=== PATIENT | female | born 1940 | race Caucasian/White ===

== ENCOUNTER 2017-10-13 12:53 | Emergency (ER) | payer MEDICARE, OTHER, SELFPAY ==
[2017-10-13 12:54] VITALS: BP 154/73; PULSE 84; RESP 18; TEMP 36.6; O2SAT 98; BMI 31.4
--- NOTE | 2017-10-13 13:01 | PCA ---
PRINTER OLD EKG
--- NOTE | 2017-10-13 14:03 | RAD_ITS ---
STUDY: X-RAY CHEST REASON FOR EXAM: Female, 77 years old. Palpitations and shakiness TECHNIQUE: Single AP portable view of the chest. COMPARISON: 05/29/2017 FINDINGS: The lungs are clear and expanded. There is no demonstrated pleural abnormality. Normal size heart. Normal mediastinum and anton. Normal visualized pulmonary arteries. Normal visualized aortic arch and descending thoracic aorta. Normal visualized thoracic spine. Normal visualized ribs, clavicles, and shoulders. There is no demonstrated abnormality of the visualized soft tissue structures of the upper abdomen. RAD/Chest 1 View (Portable) IMPRESSION: Normal x-ray examination of the chest. Electronically Signed: Juanito Owen DO at 14:39 EDT Tel , Service support ,
--- NOTE | 2017-10-13 14:04 | EKG12_ITS ---
Test Reason : PALPS Blood Pressure : / mmHG Vent. Rate : 086 BPM Atrial Rate : 086 BPM P-R Int : 168 ms QRS Dur : 076 ms QT Int : 386 ms P-R-T Axes : 000 019 066 degrees QTc Int : 461 ms Normal sinus rhythm Normal ECG Confirmed by ROBERT BILLINGS, EHSAN ([id number]), editor book MARY NIELSEN ([id number]) on 10/16/2017 10:30:28 AM Referred By: BRENTON Confirmed By:EHSAN JONES MD
[2017-10-13 14:11] VITALS: BP 154/63; PULSE 83; RESP 16; O2SAT 96
[2017-10-13 14:30] LABS: Bacteria 0 SEEN /hpf (None Seen); Mucous, Urine 0 SEEN /hpf (<or=2+)
[2017-10-13] MEDS: 0.9% Normal Saline 1,000 ML 1000 ML IV (14:30)
[2017-10-13 14:42] LABS: Absolute Neutrophil Count 5.8 X10^3/uL (2.0-7.7); Basophil# 0.03 X10^3/uL; Basophil% 0.4 % (0-1); Eosinophil# 0.07 X10^3/uL; Eosinophils% 0.8 % (0-5); Hematocrit 42.5 % (37-47); Hemoglobin 14.7 g/dl (12.0-15.0); Lymphocyte % 23.5 % (19-41); Mean Corp Hgb Conc 34.6 g/gl (32-36); Mean Corpuscular Hgb 33.8 pg (27.0-32.0); Mean Corpuscular Volume 97.7 fL (81-99); Monocyte# 0.61 X10^3/uL; Monocyte% 7.2 % (0-10); Neutrophil # 5.75 X10^3/uL (2.7-7.7); Neutrophil % 67.4 % (47-70); Platelet Count 225 K/mm3 (150-450); RBC Distribution Width CV 13.5 % (11.6-14.6); RBC Distribution Width SD 44.7 fl (35.1-43.9); Red Blood Count 4.35 M/mm3 (4.2-5.4); White Blood Count 8.5 K/mm3 (4.4-11.0)
[2017-10-13 14:42] LABS: Color, Urine Yellow (Yellow); Glucose, Dipstick Normal (Normal); Ketone-Dipstick Negative (Negative); Leukocyte Esterase-Dipstick 25 /ul (Negative); Nitrite-Dipstick Negative (Negative); Occult Blood-Urine 50 /ul (Negative); Protein-Dipstick Negative (Negative); Urine Bilirubin Dipstick Negative (Negative); Urine Clarity Sl. Cloudy (Clear); Urine Urobilinogen Normal (Normal); Urine pH 6.5 (5.0 - 8.0)
[2017-10-13 14:43] LABS: POSITIVE COUNT NO; POSITIVE DIFFERENTIAL NO; POSITIVE MORPHOLOGY NO
[2017-10-13 14:49] LABS: Red Blood Cells-Urine 0-5 SEEN /hpf (0-5); Squamous Epithelial Cells - UA 0-5 SEEN /hpf (5-10); White Blood Cells 0-5 SEEN /hpf (0-5)
[2017-10-13 16:35] LABS: Anion Gap 5 (5-15); BUN 16 mg/dL (7-18); BUN/Creat Ratio 17.3 RATIO (10-20); Calcium,Total 8.7 mg/dL (8.5-10.1); Chloride 112 mmol/L (98-107); Creatinine, Serum 0.92 mg/dL (0.55-1.02); EST Glomerular Filtration Rate 62 mL/min (>60); Est Glom Filt Rate - Afr Amer 75 mL/min (>60); Estimated Creatinine Clearance 42.82 ml/min; Glucose 101 mg/dL (74-106); Sodium Level 143 mmol/L (136-145)
[2017-10-13 16:52] VITALS: BP 152/72; PULSE 85; RESP 16; O2SAT 96
--- NOTE | 2017-10-13 16:59 | ED.VISSUMM ---
- ER Visit Summary Date of Service: 10/13/17 Chief Complaint: Palpitations History of Present Illness: The patient is a 77 F who states that for the past 2 days she has been working outside in the heat. States she feels very dehydrated but states she thought she was doing a good job hydrating herself. She can sleep very well last night laid on the couch around 4:00 in the morning she felt some nausea and lightheaded but was eventually able to get to sleep. She got up and breakfast felt even more fatigued and more nauseous and began to feel some palpitations or irregular heartbeat and came in for evaluation. She takes a daily aspirin but has no significant medical problems. Physical Examination: Afebrile vital signs are stable Gen: Well-nourished well-developed Head: Normocephalic atraumatic Eyes: Perrl EOMI ENT: TMs clear no rhinorrhea moist mucous membranes Neck: Supple no lymphadenopathy no JVD nontender CVS: Regular rate rhythm no murmurs normal S1-S2 Respiratory: No distress clear to auscultation bilaterally chest nontender Abdomen: Soft nontender nondistended normal bowel sounds no masses Back: Nontender Extremity: Nontender no edema Skin: Normal color no rash Neuro: alert orientated ?3 CN II-XII intact normal strength sensation reflexes gait cerebellar Psych: Normal affect normal mood Test Results: EKG sinus at a rate of 86 basic labs were negative urinalysis negative TSH normal. Chest x-ray negative Emergency Department Course and Treatment: She received IV fluids she has had no events on the monitor. She feels improved however she will be discharged home to follow-up with her doctors return if worsening. Impression: 1. Palpitations This note was generated with [employer] dictation software. It may contain incorrect words, spelling, and punctuation that were not noted in review of the chart prior to signing ED Disposition - Plan for ED Patient: Disposition: Home or Assisted Living Chief Complaint: Palpitations Instructions: ED Palpitations Referrals: Bennett Weir MD [Primary Care Provider] - 1 Week if not improving
[2017-10-13 17:25] VITALS: BP 140/78; PULSE 79; RESP 16; O2SAT 96
== END 2017-10-13 17:26 | disposition home or self-care (01) ==
PROVIDERS: Emergency Provider Emergency Medicine; Family Provider Internal Medicine; PCP Internal Medicine
DX: R00.2 Palpitations (principal); R11.0 Nausea; R42 Dizziness and giddiness; R53.83 Other fatigue; Z90.89 Acquired absence of other organs; Z90.49 Acquired absence of other specified parts of digestive tract; Z79.82 Long term (current) use of aspirin
CPT/HCPCS: 71045; 80048; 81001; 84443; 84484; 85025; 93005; 96360; 96361; 99285; J7030; A4216

== ENCOUNTER 2019-05-09 09:14 | Emergency (ER) | payer MEDICARE, OTHER, SELFPAY ==
[2019-05-09 09:15] VITALS: BP 155/72; PULSE 95; RESP 17; TEMP 36.9; O2SAT 97; BMI 28.6
--- NOTE | 2019-05-09 09:38 | EKG12_ITS ---
Test Reason : PALPITATIONS Blood Pressure : / mmHG Vent. Rate : 079 BPM Atrial Rate : 079 BPM P-R Int : 170 ms QRS Dur : 082 ms QT Int : 400 ms P-R-T Axes : 008 024 066 degrees QTc Int : 458 ms Normal sinus rhythm Normal ECG Confirmed by ROBERT BILLINGS, EHSAN ([id number]), television news video editor MILLI CASEY ([id number]) on 05/11/2019 11:56:31 AM Referred By: SHANNA Confirmed By:EHSAN JONES MD
--- NOTE | 2019-05-09 09:38 | RAD_ITS ---
STUDY: X-RAY CHEST REASON FOR EXAM: Female, 78 years old. Palpitations. Hypertension. TECHNIQUE: PA and lateral views of the chest. COMPARISON: Comparison is made with prior study of October 13, 2017. FINDINGS: EKG electrode are seen. The lungs are clear and expanded. Scattered calcified granulomas. There is no demonstrated pleural abnormality. Normal size heart. Normal mediastinum and anton. Normal visualized pulmonary arteries. There is atherosclerotic tortuosity of the aortic arch and descending thoracic aorta. There is demineralization of the osseous structures. Normal visualized ribs, clavicles, and shoulders. There is no demonstrated abnormality of the visualized soft tissue structures of the upper abdomen. RAD/Chest PA and Lateral IMPRESSION: No acute abnormality is seen. Scattered calcified granulomas. Electronically Signed: Rubio Carrera, at 10:42 EST , Service support ,
--- NOTE | 2019-05-09 09:39 | ED.VIS.GEN ---
History of Present Illness Chief Complaint: Palpitations Informant: Patient Onset: Days Context: Gradual Onset Timing: Intermittent Narrative: Patient is an 78-year-old female with history of hyperlipidemia and possible hypertension presenting with palpitations. Patient states she is been having worsening palpitations over the past few days. She states last night when she was lying down she saw her heart beating of her chest as well. She denies any associated chest pain. She notes she has had palpitations for years but they have never been this bad. She states she is never had it formally evaluated. She is never seen a tactical response group officer. She denies any associated shortness of breath or leg swelling. She has had mild cold and is been taking Tylenol for her symptoms. She has had a nonproductive cough. She does have some associated nausea but no vomiting. She denies any bowel changes or urinary symptoms. She does have increased stress as her was recently admitted for COPD exacerbation and was just discharged home. Patient denies any other complaints at this time. Past Medical History - Allergies and Home Meds Allergies/Adverse Reactions: Allergies iodine Allergy (Verified 05/09/19 09:15) Shortness of breath Smbtsmw-Aut-Wen Reductase Inhibitor Allergy (Verified 05/09/19 09:15) Rash ANTIBIOTICS Allergy (Uncoded 05/09/19 09:15) Shortness of breath Primary Care Physician: Bennett Weir MD [Primary Care Provider] - Past Medical History: - - Hyperlipidemia Surgical History: noncontributory Lives: Spouse/ Significant Other Smoking Status: Never smoker Alcohol: None Drugs: None Review of Systems General: Denies: Chills, Fever, Sweats Eyes: Denies: Visual changes - bilaterally, Diplopia ENT: Denies: Rhinorrhea, Sore throat Cardiovascular: Reports: Palpitations. Denies: Chest pain, Heart racing Respiratory: Reports: Cough. Denies: Dyspnea, Dyspnea on exertion Gastrointestinal: Reports: Nausea. Denies: Abdominal pain, Vomiting, Diarrhea, Melena, Hematochezia Genitourinary: Denies: Dysuria, Hematuria, Frequency Musculoskeletal: Denies: Back pain, Extremity Pain Skin: Denies: Rash, Wounds Neurological: Denies: Headache, Weakness, Numbness Physical Exam Vital Signs/Narrative: Vital Signs Temp Pulse Resp BP Pulse Ox 05/09/19 09:15 98.4 F 95 17 155/72 H 97 Inital Vital Signs reviewed: Yes General: Well nourished, Well developed, No Acute Distress Head: Normocephalic, Atraumatic Eyes: Perrl, EOMI ENT: Moist mucous membranes, No rhinorrhea Neck: Supple, Nontender Cardiovascular: Regular rate, Regular rhythm, No murmurs Respiratory: No distress, CTA bilaterally, Chest nontender Abdomen: Soft, Nontender, Nondistended, Normal bowel sounds Back: Nontender, Normal Inspection Extremities: Nontender, No edema Skin: Normal color, No rash Neurological: Alert, Oriented x3, Cranial nerves II-XII grossly intact, Normal Strength, Normal Sensation Psychological: Normal affect, Normal Mood Diagnostic/Tx/Re-eval Chest X-Ray - ED: 2 View, Read by ED Physician, Read by Radiologist, No Acute Disease Clinical Impression(s) from Imaging Studies Chest X-Ray 05/09/19 09:38 IMPRESSION: No acute abnormality is seen. Scattered calcified granulomas. Electronically Signed: Rubio Carrera, at 10:42 EST , Service support , Abdomen/Pelvis CT 05/09/19 11:06 IMPRESSION: Stable examination. No acute abnormality is seen. Electronically Signed: Rubio Carrera, at 12:30 EST , Service support , Laboratory Data 05/09/19 05/09/19 05/09/19 09:52 09:53 09:53 WBC 11.3 H RBC 4.63 Hgb 14.5 Hct 44.3 MCV 95.7 MCH 31.3 MCHC 32.7 RDW Std Deviation 46.9 H RDW Coeff of Alex 13.2 Plt Count 218 MPV 9.4 Immature Gran % (Auto) 0.700 Neut % (Auto) 75.1 H Lymph % (Auto) 17.2 L [place] % (Auto) 6.2 Eos % (Auto) 0.4 Baso % (Auto) 0.4 Absolute Neuts (auto) 8.5 H Absolute Lymphs (auto) 1.94 Nucleated RBC % 0 Sodium 140 Potassium 3.9 Chloride 108 H Carbon Dioxide 29.0 Anion Gap 3 L BUN 17 Creatinine 0.80 Estim Creat Clear Calc 46.40 Est GFR (MDRD) Af Amer 89 Est GFR (MDRD) Non-Af 74 BUN/Creatinine Ratio 21.4 H Glucose 97 Calcium 8.9 Troponin I < 0.015 TSH 0.68 Urine Color Yellow Urine Clarity Clear Urine pH 6.0 Ur Specific [place] 1.010 Urine Protein Negative Urine Glucose (UA) Normal Urine Ketones Negative Urine Occult Blood 150 H Urine Nitrite Negative Urine Bilirubin Negative Urine Urobilinogen Normal Ur Leukocyte Esterase Negative Urine RBC 0-5 SEEN Urine WBC 0 SEEN Ur Squamous Epith Cells 0 SEEN Urine Bacteria 0 SEEN Urine Mucus 0 SEEN - Rhythm Strip Rhythm Strip: Sinus Rhythm Rate: 94 Ectopy: PVC(s), - - Frequent - EKG Initial EKG Interpretation: Sinus Rhythm, - - Sinus rhythm at a rate of 79 Normal intervals Normal axis Normal ST segments No change compared to prior EKG on 10/13/2017 - Medical Decision Making Patient is evaluated for palpitations and some intermittently elevated blood pressures. Her blood pressure is normal in the ER and only mildly hypertensive. She is well-appearing. She does comment that she had some sharp abdominal pain that last for couple seconds and then resolves which she had brushed off. Patient does not have any abnormalities on her EKG however she does have frequent PVCs on her telemetry. CBC, BMP, troponin and TSH are all grossly normal. Urine did show hematuria. Patient been having some sharp abdominal pains I did obtain a CT to rule out kidney stone or some other acute pathology. This was without contrast but negative. Patient is counseled on her hematuria and need for follow-up with her primary care doctor. I do think she is safe for outpatient follow-up for her palpitations/PVCs. I did discuss with her primary care doctor, Dr. Weir. He is agreeable with this plan. Patient is counseled on signs and symptoms requiring return to the emergency room. Patient verbalizes agreement and understand this plan. Patient discharged home in stable and improved condition. ED Disposition - Plan for ED Patient: Disposition: Home or Assisted Living Diagnosis: Palpitations, PVC (premature ventricular contraction), Microscopic hematuria Instructions: Premature Ventricular Contractions, Palpitations Referrals: Bennett Weir MD [Primary Care Provider] - Additional Instructions: Please follow-up with your primary care doctor for further evaluation of your PVCs and your hematuria. I do think you are safe to go home. Return to the emergency room should you develop difficulty breathing, chest pain or worsening symptoms.
[2019-05-09 09:55] LABS: Bacteria 0 SEEN /hpf (None Seen); Mucous, Urine 0 SEEN /hpf (<or=2+); Squamous Epithelial Cells - UA 0 SEEN /hpf (5-10); White Blood Cells 0 SEEN /hpf (0-5)
[2019-05-09 09:56] LABS: Color, Urine Yellow (Yellow); Glucose, Dipstick Normal (Normal); Ketone-Dipstick Negative (Negative); Leukocyte Esterase-Dipstick Negative /ul (Negative); Nitrite-Dipstick Negative (Negative); Occult Blood-Urine 150 /ul (Negative); Protein-Dipstick Negative (Negative); Urine Bilirubin Dipstick Negative (Negative); Urine Clarity Clear (Clear); Urine Urobilinogen Normal (Normal)
[2019-05-09 10:02] LABS: Red Blood Cells-Urine 0-5 SEEN /hpf (0-5)
[2019-05-09 10:05] LABS: Absolute Lymphocyte Count 1.94 X10^3/uL (0.83-4.51); Absolute Neutrophil Count 8.5 X10^3/uL (2.0-7.7); Basophil# 0.04 X10^3/uL; Basophil% 0.4 % (0-1); Eosinophil# 0.04 X10^3/uL; Eosinophils% 0.4 % (0-5); Hematocrit 44.3 % (37-47); Hemoglobin 14.5 g/dL (12.0-15.0); Lymphocyte # 1.94 X10^3/ul (4.0); Lymphocyte % 17.2 % (19-41); Mean Corp Hgb Conc 32.7 g/dL (32-36); Mean Corpuscular Hgb 31.3 pg (27.0-32.0); Mean Corpuscular Volume 95.7 fL (81-99); Mean Platelet Vol. 9.4 fl (6.2-12.0); Monocyte% 6.2 % (0-10); NRBC Flagged by Analyzer 0 % (0-5); Neutrophil # 8.49 X10^3/uL (2.7-7.7); Neutrophil % 75.1 % (47-70); Platelet Count 218 K/mm3 (150-450); RBC Distribution Width CV 13.2 % (11.6-14.6); RBC Distribution Width SD 46.9 fl (35.1-43.9); Red Blood Count 4.63 M/mm3 (4.2-5.4); White Blood Count 11.3 K/mm3 (4.4-11.0)
[2019-05-09 10:14] VITALS: BP 145/66; PULSE 80; RESP 18; O2SAT 98
[2019-05-09] MEDS: 0.9% Normal Saline 1,000 ML 1000 ML IV (10:16)
[2019-05-09 10:47] LABS: Anion Gap 3 (5-15); BUN 17 mg/dL (7-18); BUN/Creat Ratio 21.4 RATIO (10-20); Calcium,Total 8.9 mg/dL (8.5-10.1); Chloride 108 mmol/L (98-107); EST Glomerular Filtration Rate 74 mL/min (>60); Est Glom Filt Rate - Afr Amer 89 mL/min (>60); Glucose 97 mg/dL (74-106); Potassium 3.9 mmol/L (3.5-5.1); Sodium Level 140 mmol/L (136-145); Thyroid Stim Hormone (TSH) 0.68 uIU/mL (0.358-3.74)
--- NOTE | 2019-05-09 11:06 | CT_ITS ---
STUDY: CT ABDOMEN AND PELVIS WITHOUT CONTRAST REASON FOR EXAM: Female, 78 years old. Abdominal pain. Hematuria. RADIATION DOSAGE (If Supplied By Facility): CTDIvol = ( 12.66 ) mGy, DLP = ( 610.28 ) mGycm TECHNIQUE: Transaxial images were obtained from the dome of the diaphragm to the symphysis pubis without oral contrast, and without intravenous contrast. Sagittal and coronal images were reconstructed. Individualized dose optimization techniques were used for this CT. COMPARISON: Comparison is made with prior examination dated February 01, 2016. FINDINGS: Stable thickening of the right major fissure. Calcified granuloma in the right lower lobe. Coronary artery calcification. Stable small liver cysts. The largest measures 2 cm. The patient is status post cholecystectomy. There are multiple benign calcified granulomata of the spleen. Normal pancreas. Normal bilateral adrenal glands. Normal right kidney. Normal left kidney. Bilateral parapelvic cysts. Normal visualized stomach. Normal small intestine. Prior right hemicolectomy. There are multiple colonic diverticula consistent with diverticulosis. There are surgical clips in the region of the appendix consistent with a prior appendectomy. There is diffuse atherosclerotic calcification of the abdominal aorta and its major visceral branches, without a demonstrated aneurysm. Normal inferior vena cava. There is borderline retroperitoneal lymphadenopathy with enlarged nodes no greater than 10mm in the short axis diameter. Normal urinary bladder. Calcified fibroid uterus. Normal abdominal wall. There are diffuse degenerative changes of the visualized lumbar spine. 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 CT/Abdomen/Pelvis without Cont IMPRESSION: Stable examination. No acute abnormality is seen. Electronically Signed: Rubio Carrera, at 12:30 EST , Service support ,
[2019-05-09 12:00] VITALS: BP 162/59; PULSE 82; RESP 16; O2SAT 99
[2019-05-09 13:54] VITALS: BP 135/54; PULSE 96; RESP 15; O2SAT 98
== END 2019-05-09 14:08 | disposition home or self-care (01) ==
PROVIDERS: Emergency Provider Emergency Medicine; Family Provider Internal Medicine; PCP Internal Medicine
DX: I49.3 Ventricular premature depolarization (principal); R00.2 Palpitations; R31.29 Other microscopic hematuria; R05 Cough; R11.0 Nausea; R10.9 Unspecified abdominal pain; E78.5 Hyperlipidemia, unspecified; Z79.82 Long term (current) use of aspirin
CPT/HCPCS: 71046; 74176; 80048; 81001; 84443; 84484; 85025; 93005; 96360; 96361; 99283; J7030; A4216

== ENCOUNTER 2020-07-17 21:37 | Observation (INO) | payer MEDICARE, OTHER, SELFPAY ==
[2020-07-17 21:38] VITALS: BP 184/69
[2020-07-17 21:39] VITALS: PULSE 101; RESP 18; TEMP 36.7; O2SAT 98; BMI 28.8
--- NOTE | 2020-07-17 22:12 | EKG12_ITS ---
Test Reason : DYSRHYTHMIA Blood Pressure : / mmHG Vent. Rate : 093 BPM Atrial Rate : 093 BPM P-R Int : 188 ms QRS Dur : 084 ms QT Int : 374 ms P-R-T Axes : 052 029 078 degrees QTc Int : 465 ms Normal sinus rhythm Nonspecific ST abnormality Abnormal ECG Confirmed by [place] BILLINGS, JENI ([id number]), news copy editor MILLI CASEY ([id number]) on 07/18/2020 12:53:47 PM Referred By: MARCIA Confirmed By:JENI OSBORNE MD
--- NOTE | 2020-07-17 22:14 | ED.DCSUM_ITS ---
History of Present Illness Chief Complaint: General Illness Informant: Patient Onset: Days Context: Gradual Onset Timing: Intermittent Current Severity: Moderate Maximum Severity: Moderate Narrative: Patient is an 80-year-old female with medical history significant for hypertension, and prior TIA, who presents to the emergency department with elevated blood sugar and left lower extremity weakness. Patient has had multiple complaints. She states that for the past 3 days, she has had weakness in her left lower extremity. She states is been below the knee. She states that when she steps on it, and will feel heavy. She denies it being clumsy, but states that it just felt abnormal. She states today, the symptoms seem to resolve. Shortly thereafter, she states that she got a strange sensation in her head. She felt like her ears were ringing. She took her blood pressure and it was over 200 systolic. She denies visual change, difficulty speaking, difficul ty swallowing, or other symptoms. Patient does have a history of TIA, but no history of definitive stroke. Prior similar symptoms: No Recent Illness/Hospitalization: No Past Medical History - Allergies and Home Meds Allergies/Adverse Reactions: Allergies iodine Allergy (Verified 07/17/20 21:44) Shortness of breath Hwscppr-Cde-Ezs Reductase Inhibitor Allergy (Verified 07/17/20 21:44) Rash ANTIBIOTICS Allergy (Uncoded 07/17/20 21:44) Shortness of breath Primary Care Physician: Bennett Weir MD [Primary Care Provider] - Prior records reviewed: Yes Past Medical History: - - Hypertension, hyperlipidemia Surgical History: noncontributory Smoking Status: Never smoker Review of Systems General: Denies: Chills, Fever, Sweats Eyes: Denies: Visual changes - bilaterally, Diplopia ENT: Denies: Rhinorrhea, Sore throat Cardiovascular: Denies: Chest pain, Palpitations Respiratory: Denies: Dyspnea, Cough, Dyspnea on exertion Gastrointestinal: Denies: Abdominal pain, Nausea, Vomiting, Diarrhea, Melena, Hematochezia Genitourinary: Denies: Dysuria, Hematuria, Frequency Musculoskeletal: Denies: Back pain, Extremity Pain Skin: Denies: Rash, Wounds Neurological: Reports: Headache, Weakness. Denies: Numbness Physical Exam Vital Signs/Narrative: Vital Signs Temp Pulse Resp BP Pulse Ox 07/17/20 21:39 98.1 F 101 H 18 98 07/17/20 21:38 184/69 H Inital Vital Signs reviewed: Yes General: Well nourished, Well developed, No Acute Distress Head: Normocephalic, Atraumatic Eyes: Perrl, EOMI ENT: Moist mucous membranes, No rhinorrhea Neck: Supple, Nontender Cardiovascular: Regular rate, Regular rhythm, No murmurs Respiratory: No distress, CTA bilaterally, Chest nontender Abdomen: Soft, Nontender, Nondistended, Normal bowel sounds Back: Nontender, Normal Inspection Extremities: Nontender, No edema Skin: Normal color, No rash Neurological: Alert, Oriented x3, Cranial nerves II-XII grossly intact, Normal Strength, Normal Sensation Psychological: Normal affect, Normal Mood Diagnostic/Tx/Re-eval Abnormal Lab Results 07/17/20 07/17/20 07/17/20 21:30 21:30 21:30 WBC 11.1 H RBC 4.80 Hgb 15.5 H Hct 47.0 MCV 97.9 MCH 32.3 H MCHC 33.0 RDW Std Deviation 45.5 H RDW Coeff of Alex 13.1 Plt Count 260 MPV 9.5 Immature Gran % (Auto) 0.600 Neut % (Auto) 40.8 L Lymph % (Auto) 48.9 H [place] % (Auto) 6.9 Eos % (Auto) 2.3 Baso % (Auto) 0.5 Absolute Neuts (auto) 4.5 Absolute Lymphs (auto) 5.43 H Nucleated RBC % 0 PT 12.5 INR 1.0 APTT 29.5 Sodium 140 Potassium 3.7 Chloride 106 Carbon Dioxide 31.0 Anion Gap 3 L BUN 19 H Creatinine 0.88 Estim Creat Clear Calc 42.56 Est GFR (MDRD) Af Amer 80 Est GFR (MDRD) Non-Af 66 BUN/Creatinine Ratio 21.7 H Glucose 102 Calcium 9.7 Troponin I < 0.015 Urine Color Urine Clarity Urine pH Ur Specific [place] Urine Protein Urine Glucose (UA) Urine Ketones Urine Occult Blood Urine Nitrite Urine Bilirubin Urine Urobilinogen Ur Leukocyte Esterase Urine RBC Urine WBC Ur Squamous Epith Cells Urine Bacteria Urine Mucus 07/17/20 22:35 WBC RBC Hgb Hct MCV MCH MCHC RDW Std Deviation RDW Coeff of Alex Plt Count MPV Immature Gran % (Auto) Neut % (Auto) Lymph % (Auto) [place] % (Auto) Eos % (Auto) Baso % (Auto) Absolute Neuts (auto) Absolute Lymphs (auto) Nucleated RBC % PT INR APTT Sodium Potassium Chloride Carbon Dioxide Anion Gap BUN Creatinine Estim Creat Clear Calc Est GFR (MDRD) Af Amer Est GFR (MDRD) Non-Af BUN/Creatinine Ratio Glucose Calcium Troponin I Urine Color Straw Urine Clarity Clear Urine pH 7.0 Ur Specific [place] 1.005 Urine Protein Negative Urine Glucose (UA) Normal Urine Ketones Negative Urine Occult Blood 50 H Urine Nitrite Negative Urine Bilirubin Negative Urine Urobilinogen Normal Ur Leukocyte Esterase 25 H Urine RBC 0 SEEN Urine WBC 0 SEEN Ur Squamous Epith Cells 0 SEEN Urine Bacteria 0 SEEN Urine Mucus 0 SEEN - Rhythm Strip Rhythm Strip: Sinus Rhythm Rate: 90 Ectopy: None - EKG Initial EKG Interpretation: Sinus Rhythm, No Acute Injury Pattern Prior: Unchanged - Medical Decision Making On arrival, the patient has an NIH of 0. Her symptoms have totally resolved. She was markedly hypertensive at home, but without intervention, her repeat blood pressure is approaching the normal range. Metabolic work-up was pursued. EKG was sinus rhythm without evidence of acute ischemia. Patient underwent noncontrast head CT. This shows no acute normality. My concern is that she is had this intermittent weakness that is focal in the left leg along with elevated blood pressure. I do feel the patient would benefit from an admission for TIA work-up. She does have multiple risk factors for stroke. The patient is comfortable with this plan of care. She was discussed with the hospitalist who agrees. Impression 1. TIA ED Disposition - Plan for ED Patient: Referrals: Bennett Weir MD [Primary Care Provider] -
[2020-07-17 22:15] VITALS: BP 171/60; PULSE 99; RESP 20; O2SAT 96
--- NOTE | 2020-07-17 22:18 | CT_ITS ---
STUDY: CT BRAIN WITHOUT CONTRAST REASON FOR EXAM: Female, 80 years old. ELEVATED BP,RINGING IN EARS,LT LOWER LEG WEAKNESS X 3 DAYS BUT RESOLVED NOW -- HX:HTN,TIA RADIATION DOSAGE (If Supplied By Facility): CTDIvol = ( 44.99 ) mGy, DLP = ( 796.11 ) mGycm TECHNIQUE: Transaxial CT imaging of the brain was performed without administration of intravenous contrast material. Individualized dose optimization techniques were used for this CT. COMPARISON: May 29, 2017 FINDINGS: Normal soft tissue structures. Normal calvarium. There is mild cerebral atrophy with widening of the extra-axial spaces and ventricular dilatation. Normal white matter tracts of the cerebral hemispheres. Normal basal ganglia and thalami. Normal brainstem. Normal cerebellum. There is no intracranial hemorrhage. There are no findings of an acute ischemic infarction. Normal visualized paranasal sinuses. CT/Brain/Head without Contrast IMPRESSION: Chronic involutional changes of the brain. Electronically Signed: Daquan Benjamin MD at 23:21 EST , Service support ,
[2020-07-17 22:25] LABS: Absolute Lymphocyte Count 5.43 X10^3/uL (0.83-4.51); Absolute Neutrophil Count 4.5 X10^3/uL (2.0-7.7); Basophil# 0.06 X10^3/uL; Basophil% 0.5 % (0-1); Eosinophil# 0.25 X10^3/uL; Eosinophils% 2.3 % (0-5); Hemoglobin 15.5 g/dL (12.0-15.0); Lymphocyte # 5.43 X10^3/ul (4.0); Lymphocyte % 48.9 % (19-41); Mean Corpuscular Hgb 32.3 pg (27.0-32.0); Mean Corpuscular Volume 97.9 fL (81-99); Mean Platelet Vol. 9.5 fl (6.2-12.0); Monocyte# 0.77 X10^3/uL; Monocyte% 6.9 % (0-10); NRBC Flagged by Analyzer 0 % (0-5); Neutrophil # 4.53 X10^3/uL (2.7-7.7); Neutrophil % 40.8 % (47-70); POSITIVE DIFFERENTIAL YES; POSITIVE MORPHOLOGY YES; Platelet Count 260 K/mm3 (150-450); RBC Distribution Width CV 13.1 % (11.6-14.6); RBC Distribution Width SD 45.5 fl (35.1-43.9); White Blood Count 11.1 K/mm3 (4.4-11.0)
[2020-07-17 22:26] LABS: Prothrombin Time (Protime)PT. 12.5 SECONDS (11.7-14.9)
[2020-07-17 22:27] LABS: Differential Indicated SCAN CRITERIA MET; Partial Thromboplast Time 29.5 Seconds (24.1-36.2)
[2020-07-17 22:32] VITALS: BP 164/64; PULSE 91; RESP 18; O2SAT 95
[2020-07-17 22:36] LABS: Anion Gap 3 (5-15); BUN 19 mg/dL (7-18); BUN/Creat Ratio 21.7 RATIO (10-20); Calcium,Total 9.7 mg/dL (8.5-10.1); Chloride 106 mmol/L (98-107); Creatinine, Serum 0.88 mg/dL (0.55-1.02); EST Glomerular Filtration Rate 66 mL/min (>60); Est Glom Filt Rate - Afr Amer 80 mL/min (>60); Estimated Creatinine Clearance 42.56 ml/min; Glucose 102 mg/dL (74-106); Potassium 3.7 mmol/L (3.5-5.1); Sodium Level 140 mmol/L (136-145)
--- NOTE | 2020-07-17 22:36 | RAD_ITS ---
STUDY: X-RAY CHEST REASON FOR EXAM: Female, 80 years old. Neuro deficit, acute, stroke suspected TECHNIQUE: Single AP portable view of the chest. COMPARISON: May 09, 2019 FINDINGS: There are monitoring devices. The lungs are clear and expanded. There is right lower lung granuloma. There is no demonstrated pleural abnormality. Normal size heart. Normal mediastinum and anton. Normal visualized pulmonary arteries. There is atherosclerotic calcification of the aortic arch with tortuosity. There is demineralization of the osseous structures. Normal visualized ribs, clavicles, and shoulders. There is no demonstrated abnormality of the visualized soft tissue structures of the upper abdomen. RAD/Chest 1 View IMPRESSION: Degenerative changes, as described above. No demonstrated acute cardiopulmonary process. Electronically Signed: Daquan Benjamin MD at 23:21 EST , Service support ,
[2020-07-17 22:41] LABS: Bacteria 0 SEEN /hpf (None Seen); Color, Urine Straw (Yellow); Glucose, Dipstick Normal (Normal); Ketone-Dipstick Negative (Negative); Leukocyte Esterase-Dipstick 25 /ul (Negative); Mucous, Urine 0 SEEN /hpf (<or=2+); Nitrite-Dipstick Negative (Negative); Occult Blood-Urine 50 /ul (Negative); Protein-Dipstick Negative (Negative); Red Blood Cells-Urine 0 SEEN /hpf (0-5); Specific Gravity, Urine 1.005 (1.002-1.030); Squamous Epithelial Cells - UA 0 SEEN /hpf (5-10); Urine Bilirubin Dipstick Negative (Negative); Urine Clarity Clear (Clear); Urine Urobilinogen Normal (Normal); White Blood Cells 0 SEEN /hpf (0-5)
[2020-07-17 22:58] VITALS: BP 164/64; PULSE 93; RESP 16; O2SAT 96
[2020-07-17 23:19] LABS: Differential Comment SCANNED
[2020-07-17 23:36] LABS: Bedside Glucose 119 mg/dL (70-110)
--- NOTE | 2020-07-17 23:37 | HP.PCM_ITS ---
Problem List (1) TIA (transient ischemic attack) Status: Acute Qualifiers: Transient cerebral ischemia type: unspecified Qualified Code(s): G45.9 - Transient cerebral ischemic attack, unspecified (2) Lymphocytosis Status: Acute (3) HLD (hyperlipidemia) Status: Chronic Qualifiers: Hyperlipidemia type: unspecified Qualified Code(s): E78.5 - Hyperlipidemia, unspecified (4) Obesity (BMI 30.0-34.9) Status: Chronic (5) HTN (hypertension) Status: Chronic Qualifiers: Hypertension type: essential hypertension Qualified Code(s): I10 - Essential (primary) hypertension History of Present Illness Date of Admission: 07/17/20 Chief Complaint: LLE weakness, elevated BS The patient is a 80 y/o F w/ PMHx: HTN ,? Prior Hx TIA reported but patient denies, HLD not on regimen secondary to intolerance who presents to the [facility] ED on 07/17/20 with history of several days of intermittent sensation of left lower extremity weakness which primarily noted when she was attempting to walk to her mailbox but decided to eventually come in as she noted her blood pressure being mildly elevated. Upon ED presentation she does feel as though she is returned to her previous baseline but states that it has been intermittent. She does state that her leg feels as though it is heavier than the other one. She denies any recent headaches or any other focal deficits. Work-up in the ED included T 98.1, heart rate initially 101, BP 184/69, respiratory rate 18, 98% on room air, CBC with WBC 11.1, hemoglobin 15.5, platelet 260 with noted increased lymphocytes, unremarkable coags, BMP with BUN/creatinine 19/0.88, glucose 102, troponin less than 0.015, urinalysis not marked appearing, CT of the brain with chronic involutional changes with no acute intracranial findings, chest x-ray with no acute cardiopulmonary findings, EKG with sinus rhythm with no acute evidence of ischemia. Past Medical History Past Medical History (Chronic Problems): Chronic Problems HLD (hyperlipidemia) (Chronic) Obesity (BMI 30.0-34.9) (Chronic) HTN (hypertension) (Chronic) Allergies iodine Allergy (Verified 07/17/20 21:44) Shortness of breath Userknn-Dhx-Srv Reductase Inhibitor Allergy (Verified 07/17/20 21:44) Rash ANTIBIOTICS Allergy (Uncoded 07/17/20 21:44) Shortness of breath Home Medications: Ambulatory Orders Medication Instructions Recorded Aspirin [Aspirin, Baby] 81 mg PO QODAY 10/13/17 Cholecalciferol (VIT D3) [Vitamin 1,000 unit PO DAILY 07/17/20 D] Surgical History: - - Right colon resection reportedly for precancerous lesions. Psychiatric History: No pertinent psych hx [employer] History: No pertinent [employer] history Lives: Alone Smoking Status: Never smoker Tobacco Use: Non-smoker Alcohol: None Drugs: None - *Family History Maternal History Items: Heart Disease Paternal History Items: Heart Disease Review of Systems Constitutional: Reports: Weakness, Fatigue. Denies: Anorexia, Chills, Fever, Malaise, Weight Change HEENT: Denies: Head Aches, Sinus Congestion, Sinus Drainage Cardiovascular: Denies: Chest Pain, Palpitations Respiratory: Denies: Cough, Shortness of breath at rest, Sputum production Gastrointestinal: Denies: Abdominal Pain, Nausea, Vomiting Genitourinary: Denies: Dysuria Musculoskeletal: Reports: Back Pain, Joint Pain. Denies: Joint Tenderness Skin: Denies: Rash, Wounds Neurological: Reports: Focal weakness. Denies: Numbness, Tingling Psychiatric: Denies: Anxiety, Depression, Homicidal Ideations, Suicidal Ideations Hematologic/ Lymphatic: Reports: Easy Bruising, Easy Bleeding VTE Information - Inpt Only VTE Present on Admission: No VTE Mechan Device Prophylaxis: SCD's VTE Pharm Prophylaxis ordered?: Yes Subjective: Patient seated upright in the bed, no acute distress, notes she feels as though she is returned to her baseline. Objective: Physical Examination: General: awake, alert, oriented x 3 and cooperative, seated upright in the ED bed in no apparent distress. Skin: normal color, turgor, no icterus, cyanosis. HEENT: AT/NC, EOMI, PERRLA, MMM, no carotid bruits or JVD noted. Lungs: CTA bilaterally, moderate effort, mild decrease BL bases, no rales, ronchi or wheezing. Heart: Regular rate and rhythm; no gallop, rub audible. Abdomen: soft, obese, NTTP, ND, normal BS, no HSM. Extremities: no cyanosis, clubbing, or edema. Neurological: patient awake, alert, oriented as noted; cognitive function appears baseline intact; pupils equally reactive to light and accomodation; cranial nerves II-XII grossly normal, moving all 4 extremities, no focal deficits, strength preserved, sensation intact, finger-nose and heel srivastava appropriate, negative Babinski. Psychiatric: affect appears fatigued otherwise normal, no acute evidence of depressive or anxiety feelings. - Physical Exam Vitals/I&O's: Vital Signs Temp Pulse Resp BP Pulse Ox 98.1 F 93 16 164/64 H 96 07/17/20 21:39 07/17/20 22:58 07/17/20 22:58 07/17/20 22:58 07/17/20 22:58 Oxygen Delivery Method Room Air Weight: 167 lb 8.821 oz Body Mass Index (BMI) 28.8 Finger Stick Blood Glucose 119 Laboratory Results 07/17/20 21:30: WBC 11.1 H, RBC 4.80, Hgb 15.5 H, Hct 47.0, MCV 97.9, MCH 32.3 H , MCHC 33.0, RDW Std Deviation 45.5 H, RDW Coeff of Alex 13.1, Plt Count 260, MPV 9.5, Immature Gran % (Auto) 0.600, Neut % (Auto) 40.8 L, Lymph % (Auto) 48.9 H, [place] % (Auto) 6.9, Eos % (Auto) 2.3, Baso % (Auto) 0.5, Absolute Neuts (auto) 4.5, Absolute Lymphs (auto) 5.43 H, Nucleated RBC % 0, Differential Comment SCANNED 07/17/20 21:30: PT 12.5, INR 1.0, APTT 29.5 07/17/20 21:30: Sodium 140, Potassium 3.7, Chloride 106, Carbon Dioxide 31.0, Anion Gap 3 L, BUN 19 H, Creatinine 0.88, Estim Creat Clear Calc 42.56, Est GFR (MDRD) Af Amer 80, Est GFR (MDRD) Non-Af 66, BUN/Creatinine Ratio 21.7 H, Glucose 102, Calcium 9.7, Troponin I < 0.015 07/17/20 22:22: POC Glucose 119 H 07/17/20 22:35: Urine Color Straw, Urine Clarity Clear, Urine pH 7.0, Ur Specific [place] 1.005, Urine Protein Negative, Urine Glucose (UA) Normal, Urine Ketones Negative, Urine Occult Blood 50 H, Urine Nitrite Negative, Urine Bilirubin Negative, Urine Urobilinogen Normal, Ur Leukocyte Esterase 25 H, Urine RBC 0 SEEN, Urine WBC 0 SEEN, Ur Squamous Epith Cells 0 SEEN, Urine Bacteria 0 SEEN, Urine Mucus 0 SEEN Current Medications Labetalol HCl (Labetalol (Prefilled) 20 Mg/4 Ml) 20 mg IV X1 PRN PRN Reason: BLOOD PRESSURE Assessment/Plan All Active Problems Lymphocytosis (Acute) TIA (transient ischemic attack) (Acute) The patient is a 80 y/o F w/ PMHx: HTN ,? Prior Hx TIA reported but patient denies, HLD not on regimen secondary to intolerance who presents to the [facility] ED on 07/17/20 with history of several days of intermittent sensation of left lower extremity weakness which primarily noted when she was attempting to walk to her mailbox. 1. Intermittent left lower extremity weakness concerning for TIA: Will admit to PCU, will obtain MRI Brain, MRA Head and Neck, ECHO, PT/OT/Speech/Nutrition evaluation per protocol. Will plan rotation with neurology once work-up is obtained. In the interim given intermittent symptoms will maintain on permissive hypertension and if clinically appropriate once MRI resulted and pending timeline would initiate oral regimen, maintain on aspirin with possibly consideration of plavix addition pending MRI brain, defer statin given intolerance with AM FLP, fall precautions. Mag, TSH, HgbA1c pending. 2. Lymphocytosis: Unclear specific etiology, absolute lymphocytes elevated, trend CBC with differential and if appropriate continue outpatient assessment. 3. Hypertension: Not on regimen but noted history previously, will maintain on permissive hypertension pending evaluation as noted above, add regimen once appropriate. 4. Hyperlipidemia: Not on regimen secondary to intolerance of statin therapy per her report, FLP in AM. 5. DVT prophylaxis: SCDs, Lovenox. 6. CODE status: Patient ROSSY is her daughter Maria A Carver and living will is currently in place. Discussed CODE status at length including difference between FULL code, DNR-CCA and DNR-CC status. Following discussions about the differences in these status, requested Full Code status. Advanced Care Planning Face to Face Time: 16 minutes.
[2020-07-18] VITALS (14 sets, daily range): BP systolic 134–174; BP diastolic 57–75; PULSE 72–99; RESP 14–97; TEMP 36.5–37.1; O2SAT 95–99; BMI 31.6
--- NOTE | 2020-07-18 01:14 | ECHOD_ITS ---
Reason For Study: CVA Procedure This was a 2D Doppler, Color Flow transthoracic echocardiogram. Exam performed portable in patient room. Left Ventricle Normal LV size. The estimated ejection fraction is 70 %. No evidence for diastolic dysfunction. No regional wall motion abnormalities noted. Right Ventricle Normal RV size. Normal systolic function. Atria Normal left atrium. Normal right atrium. Normal atrial septum. Mitral Valve There is moderate mitral annular calcification. There is no mitral valve stenosis. No mitral valve insufficiency. Tricuspid Valve There is no tricuspid stenosis. Trivial tricuspid valve insufficiency. Pulmonary artery systolic pressure is 30-35 mmHg. Aortic Valve Trisinus/trileaflet aortic valve. Aortic sclerosis, no stenosis. There is no aortic stenosis. No aortic valve insufficiency. Pulmonic Valve There is no pulmonic valvular stenosis. No pulmonic valve insufficiency. Great Vessels Normal aortic root. Pericardium/Pleural No pericardial effusion. Medication Previously negative bubble study. MMode/2D Measurements & Calculations LVIDd: 3.6 cm IVSd: 0.79 cm LVOT diam: 2.0 cm LVIDs: 2.6 cm LVPWd: 0.88 cm RVDd: 3.4 cm FS: 29.2 % LVOT area: 3.0 cm2 Ao root diam: 3.2 cm LAV(MOD-bp): 44.7 ml LVAd ap4: 20.8 cm2 LAV(MOD-bp) Indexed: 25.0 ml/m2 EDV(MOD-sp4): 51.0 ml LAV(MOD-sp2): 38.1 ml EDV(sp4-el): 53.0 ml LAV(MOD-sp4): 49.2 ml LVAs ap4: 11.1 cm2 ESV(MOD-sp4): 18.2 ml ESV(sp4-el): 18.2 ml EF(MOD-sp4): 64.3 % EF(sp4-el): 65.7 % SV(MOD-sp4): 32.8 ml SV(sp4-el): 34.8 ml LA A4 area: 17.8 cm2 LA dimension(2D): 3.4 cm RA A4 area: 14.7 cm2 Time Measurements MV dec time: 0.29 sec Doppler Measurements & Calculations MV E max yousuf: 82.1 cm/sec Lat Peak E' Yousuf: 8.7 cm/sec Med Peak E' Yousuf: 6.3 cm/sec MV A max yousuf: 118.7 cm/sec E/E' lat: 9.4 E/E' med: 13.0 MV E/A: 0.69 MV V2 max: 123.2 cm/sec Ao V2 max: 183.9 cm/sec LV V1 max: 128.2 cm/sec MV max P.1 mmHg Ao max P.5 mmHg LV V1 max P.6 mmHg MV V2 mean: 84.6 cm/sec CHUY(V,D): 2.1 cm2 MV mean P.0 mmHg MV V2 VTI: 25.8 cm PA V2 max: 105.8 cm/sec TR max yousuf: 262.7 cm/sec MV P1/2t-pr_phl: 67.1 msec TR max P.6 mmHg Interpretation Summary The estimated ejection fraction is 70 %. No evidence for diastolic dysfunction. There is moderate mitral annular calcification. Ordering Physician: Vandana Bates Referring Physician: Bennett Weir M.D. Performed By: Mireya Whitlock RDCS, RVT
[2020-07-18 01:28] LABS: Magnesium 2.6 mg/dL (1.6-2.6)
[2020-07-18 01:40] LABS: Hemoglobin A1c 5.3 % (3.8-5.6)
[2020-07-18] MEDS: 0.9% Normal Saline 1,000 ML 100 ML IV (01:53)
--- NOTE | 2020-07-18 05:55 | MRI_ITS ---
STUDY: MRA OF THE HEAD WITHOUT CONTRAST REASON FOR EXAM: Female, 80 years old. left lower extremity weakness, HTN TECHNIQUE: 3-D [id number] (TOF) imaging was performed with MIPs. The study was performed unenhanced. COMPARISON: None. FINDINGS: Normal bilateral petrous carotid arteries. Normal right cavernous carotid artery with a normal supraclinoid bifurcation. Normal left cavernous carotid artery with a normal supraclinoid bifurcation. There is hypoplastic development of the right A1 segment of the anterior cerebral arteries with an atretic but intact artery. Normal left A1 segments of the anterior cerebral artery. Normal intact anterior communicating artery (ACOM). Normal bilateral A2 segments of the anterior cerebral arteries. Normal right M1 and M2 segments of the middle cerebral arteries, with a normal M1 bifurcation. Normal left M1 and M2 segments of the middle cerebral arteries, with a normal M1 bifurcation. There is a persistent origin of the right posterior cerebral artery with absence of the P1 segment of the right posterior cerebral artery. There is a persistent origin of the left posterior cerebral artery with absence of the P1 segment of the left posterior cerebral artery. Normal bilateral vertebral arteries. Normal basilar artery with a normal basilar bifurcation. The visualized bilateral superior cerebellar (SCA) arteries are normal. Normal bilateral P1, P2 and visualized P3 segments of the posterior cerebral arteries. There is no demonstrated aneurysm of the [place]. There is no major vessel occlusion or hemodynamically significant stenosis. There is no demonstrated abnormality of the visualized brain. MRI/MRA Head ONLY without Contrast IMPRESSION: Normal MRA of the head Electronically Signed: Mark Azevedo MD at 15:50 EST Tel , Service support ,
--- NOTE | 2020-07-18 05:55 | MRI_ITS ---
STUDY: MRI BRAIN WITHOUT CONTRAST REASON FOR EXAM: Female, 80 years old. left lower extremity weakness, HTN TECHNIQUE: Standardized multiplanar fat and water weighted pulse sequences were obtained. COMPARISON: CT 07/17/2020 FINDINGS: There is mild cerebral atrophy with widening of the extra-axial spaces and ventricular dilatation. Normal white matter tracts of the supratentorial brain. There is no evidence for recent intracranial ischemia or other cause of cytotoxic edema on diffusion weighted imaging (DWI). Normal T2* images of the brain without demonstrated susceptibility artifact. There is no demonstrated hemosiderin stain. Normal bilateral basal ganglia. Normal thalami. There is no extra-axial fluid accumulation. Normal flow voids within the major intracranial circulation suggesting patency by spin echo criteria. Normal sella turcica, pituitary gland, infundibular stalk, optic chiasm and hypothalamus. Normal tectal plate and pineal gland. Normal midbrain, junior and medulla. Normal cerebellum. Normal basal cisterns. Normal bilateral temporal bones. Normal bilateral internal auditory canals. There are bilateral ocular lens implants with otherwise normal intraorbital contents. Normal visualized paranasal sinuses. Normal calvarium and skull base. Normal visualized soft tissue structures. Normal visualized upper cervical spine. MRI/Brain without Contrast IMPRESSION: Involutional changes of the brain, as described above. No acute infarct. Electronically Signed: Mark Azevedo MD at 15:47 EST Tel , Service support ,
--- NOTE | 2020-07-18 05:55 | MRI_ITS ---
STUDY: MRA NECK WITHOUT CONTRAST REASON FOR EXAM: Female, 80 years old. left lower extremity weakness, HTN TECHNIQUE: Source images were obtained, MIPs were performed. The study was performed unenhanced. COMPARISON: None. FINDINGS: RIGHT CAROTID ARTERIES: Normal right common carotid artery (CCA). Normal right common carotid bulb. Normal origin of the right internal carotid (ICA) artery without a hemodynamically significant stenosis. Normal visualized cervical portion of the right internal carotid artery. Normal origin of the right external carotid artery (ECA). LEFT CAROTID ARTERIES: Normal left common carotid artery (CCA). Normal left common carotid bulb. Normal origin of the left internal carotid (ICA) artery without a hemodynamically significant stenosis. Normal visualized cervical portion of the left internal carotid artery. Normal origin of the left external carotid artery (ECA). VERTEBRAL ARTERIES: Normal antegrade flow within the bilateral vertebral artery without a hemodynamically significant stenosis. MRI/MRA Neck without Contrast IMPRESSION: Normal bilateral cervical carotid and vertebral arteries. Electronically Signed: Mark Azevedo MD at 15:51 EST Tel , Service support ,
[2020-07-18 06:06] LABS: Absolute Lymphocyte Count 3.53 X10^3/uL (0.83-4.51); Absolute Neutrophil Count 6.8 X10^3/uL (2.0-7.7); Basophil# 0.06 X10^3/uL; Basophil% 0.5 % (0-1); Eosinophil# 0.16 X10^3/uL; Eosinophils% 1.4 % (0-5); Hematocrit 42.5 % (37-47); Hemoglobin 13.8 g/dL (12.0-15.0); Lymphocyte # 3.53 X10^3/ul (4.0); Mean Corp Hgb Conc 32.5 g/dL (32-36); Mean Corpuscular Hgb 31.5 pg (27.0-32.0); Mean Platelet Vol. 9.3 fl (6.2-12.0); Monocyte# 0.77 X10^3/uL; Monocyte% 6.8 % (0-10); NRBC Flagged by Analyzer 0 % (0-5); Neutrophil # 6.76 X10^3/uL (2.7-7.7); Neutrophil % 59.5 % (47-70); Platelet Count 210 K/mm3 (150-450); RBC Distribution Width CV 13.1 % (11.6-14.6); RBC Distribution Width SD 46.5 fl (35.1-43.9); Red Blood Count 4.38 M/mm3 (4.2-5.4); White Blood Count 11.4 K/mm3 (4.4-11.0)
[2020-07-18 06:46] LABS: ALB/GLOB Ratio 1.1 RATIO (0.9-2.4); AST(SGOT) 13 U/L (15-37); Alanine Aminotransfer ALT/SGPT 18 U/L (13-56); Albumin, Serum 3.4 g/dL (3.2-5.0); Alkaline Phosphatase 71 U/L (45-117); Anion Gap 6 (5-15); BUN 16 mg/dL (7-18); Calcium,Total 8.6 mg/dL (8.5-10.1); Chloride 112 mmol/L (98-107); Cholesterol 251 mg/dL (200); Creatinine, Serum 0.64 mg/dL (0.55-1.02); EST Glomerular Filtration Rate 94 mL/min (>60); Est Glom Filt Rate - Afr Amer 114 mL/min (>60); Estimated Creatinine Clearance 31.15 ml/min; Globulin 3.1 g/dL (2.2-4.2); Glucose 98 mg/dL (74-106); High Density Lipoprotein 55 mg/dL; Protein, Total 6.5 g/dL (6.4-8.2); Sodium Level 143 mmol/L (136-145); Thyroid Stim Hormone (TSH) 1.44 uIU/mL (0.358-3.74); Triglycerides 106 mg/dL; Very Low Density Lipoprotein 21 mg/dL (5-40)
--- NOTE | 2020-07-18 08:00 | PCM.PN.HOSP ---
Patient Problems: Active and Suspected Problems Lymphocytosis (Acute) TIA (transient ischemic attack) (Acute) Objective: Patient came to ER with left lower extremity weakness for last 3 days along with multiple complaints. EKG sinus rhythm. Patient blood sugar was found elevated in ED. NIH stroke scale 0. Vitals/I&O's: Vital Signs Temp Pulse Resp BP Pulse Ox 98.1 F 72 16 150/57 H 98 07/18/20 05:30 07/18/20 07:02 07/18/20 05:30 07/18/20 05:30 07/18/20 05:30 Oxygen Delivery Method Room Air Weight: 162 lb 4.163 oz Body Mass Index (BMI) 31.6 Finger Stick Blood Glucose 119 Laboratory Results 07/17/20 21:30: WBC 11.1 H, RBC 4.80, Hgb 15.5 H, Hct 47.0, MCV 97.9, MCH 32.3 H, MCHC 33.0, RDW Std Deviation 45.5 H, RDW Coeff of Alex 13.1, Plt Count 260, MPV 9.5, Immature Gran % (Auto) 0.600, Neut % (Auto) 40.8 L, Lymph % (Auto) 48.9 H, [place] % (Auto) 6.9, Eos % (Auto) 2.3, Baso % (Auto) 0.5, Absolute Neuts (auto) 4.5, Absolute Lymphs (auto) 5.43 H, Nucleated RBC % 0, Differential Comment SCANNED 07/17/20 21:30: PT 12.5, INR 1.0, APTT 29.5 07/17/20 21:30: Sodium 140, Potassium 3.7, Chloride 106, Carbon Dioxide 31.0, Anion Gap 3 L, BUN 19 H, Creatinine 0.88, Estim Creat Clear Calc 42.56, Est GFR (MDRD) Af Amer 80, Est GFR (MDRD) Non-Af 66, BUN/Creatinine Ratio 21.7 H, Glucose 102, Calcium 9.7, Troponin I < 0.015 07/17/20 21:30: Hemoglobin A1c 5.3 07/17/20 21:30: Magnesium 2.6 07/17/20 22:22: POC Glucose 119 H 07/17/20 22:35: Urine Color Straw, Urine Clarity Clear, Urine pH 7.0, Ur Specific [place] 1.005, Urine Protein Negative, Urine Glucose (UA) Normal, Urine Ketones Negative, Urine Occult Blood 50 H, Urine Nitrite Negative, Urine Bilirubin Negative, Urine Urobilinogen Normal, Ur Leukocyte Esterase 25 H, Urine RBC 0 SEEN, Urine WBC 0 SEEN, Ur Squamous Epith Cells 0 SEEN, Urine Bacteria 0 SEEN, Urine Mucus 0 SEEN 07/18/20 05:52: WBC 11.4 H, RBC 4.38, Hgb 13.8, Hct 42.5, MCV 97.0, MCH 31.5, MCHC 32.5, RDW Std Deviation 46.5 H, RDW Coeff of Alex 13.1, Plt Count 210, MPV 9.3, Immature Gran % (Auto) 0.800, Neut % (Auto) 59.5, Lymph % (Auto) 31.0, [place] % (Auto) 6.8, Eos % (Auto) 1.4, Baso % (Auto) 0.5, Absolute Neuts (auto) 6.8, Absolute Lymphs (auto) 3.53, Nucleated RBC % 0 07/18/20 05:52: Sodium 143, Potassium 4.0, Chloride 112 H, Carbon Dioxide 25.0, Anion Gap 6, BUN 16, Creatinine 0.64, Estim Creat Clear Calc 31.15, Est GFR (MDRD) Af Amer 114, Est GFR (MDRD) Non-Af 94, BUN/Creatinine Ratio 25.0 H, Glucose 98, Calcium 8.6, Total Bilirubin 0.40, AST 13 L, ALT 18, Alkaline Phosphatase 71, Total Protein 6.5, Albumin 3.4, Globulin 3.1, Albumin/Globulin Ratio 1.1, Triglycerides 106, Cholesterol 251 H, LDL Cholesterol 175 H, VLDL Cholesterol 21, HDL Cholesterol 55, TSH 1.44 Current Medications Acetaminophen (Acetaminophen 325 Mg Tablet) 650 mg PO Q6H PRN PRN PRN Reason: Pain Score 1-10/Temp > 100.7 F Al Hydroxide/Mg Hydroxide (Mag Hydrox/Al Hydrox/Simeth 30 Ml Udc) 30 ml PO Q6H PRN PRN PRN Reason: Gastric Burning Albuterol Sulfate (Albuterol 2.5 Mg/3 Ml Vial.Neb.) 2.5 mg INHALATION Q2H PRN PRN PRN Reason: Dyspnea, wheezing Aspirin (Aspirin 81 Mg Tab.Chew) 81 mg PO QODAY@0800 [facility] Cholecalciferol (Cholecalciferol (Vit D3) 1,000 Unit (25mcg)) 1,000 unit PO DAILY [facility] Enoxaparin Sodium (Enoxaparin 40 Mg/0.4 Ml Syringe) 40 mg SC DAILY [facility] Famotidine (Famotidine 20 Mg Tablet) 20 mg PO BID [facility] Guaifenesin (Guaifenesin 10 Ml Udc (200mg/10ml)) 20 ml PO Q4H PRN PRN PRN Reason: COUGH Hydralazine HCl (Hydralazine 20 Mg/Ml Vial) 5 mg IV Q30M PRN PRN Reason: to maintain BP goals Sodium Chloride () 1,000 mls @ 100 mls/hr IV .Q10H [facility] Stop: 07/18/20 11:13 Last Admin: 07/18/20 01:53 Dose: 100 mls/hr Documented by: Labetalol HCl (Labetalol (Prefilled) 20 Mg/4 Ml) 10 - 20 mg IV Q10M PRN PRN PRN Reason: to Maintain BP Goals Magnesium Hydroxide (Magnesium Hydroxide 30 Ml Udc) 30 ml PO DAILY PRN PRN PRN Reason: Constipation Melatonin (Melatonin 3 Mg Tablet) 3 mg PO QHS PRN PRN PRN Reason: INSOMNIA Ondansetron HCl (Ondansetron 4 Mg/2 Ml Vial) 4 mg IV Q8H PRN PRN PRN Reason: NAUSEA/VOMITING Prochlorperazine Edisylate (Prochlorperazine 10 Mg/2 Ml Vial) 5 mg IV Q4H PRN PRN PRN Reason: Breakthrough Nausea/Vomiting Psyllium Hydrophilic Mucilloid (Psyllium 1 Packet) 1 packet PO DAILY PRN PRN PRN Reason: Constipation Senna/Docusate Sodium (Senna/Docusate Sodium 1 Tablet) 2 tablet PO BID PRN PRN PRN Reason: Constipation Sodium Chloride (0.9% Saline Lock 10 Ml Syringe) 10 - 40 ml IV UD PRN PRN Reason: SALINE FLUSH Throat Lozenges (Benzocaine/Menthol 1 Lozenge) 1 lozenge MUCOUS MEM Q2H PRN PRN PRN Reason: SORE THROAT STROKE Vital Signs/Narrative: Vital Signs Temp Pulse Resp BP Pulse Ox 07/18/20 07:02 72 02/24/21 05:30 98.1 F 83 16 150/57 H 98 Medical Necessity - Tobacco Use Smoking Status: Never smoker Tobacco Use: Non-smoker Assessment/Plan All Active Problems Lymphocytosis (Acute) TIA (transient ischemic attack) (Acute) he patient is a 80 y/o F w/ PMHx: HTN ,? Prior Hx TIA reported but patient denies, HLD not on regimen secondary to intolerance who presents to the [facility] ED on 07/17/20 with history of several days of intermittent sensation of left lower extremity weakness which primarily noted when she was attempting to walk to her mailbox. 1. Intermittent left lower extremity weakness concerning for TIA: Will admit to PCU, will obtain MRI Brain, MRA Head and Neck, ECHO, PT/OT/Speech/Nutrition evaluation per protocol. Will plan rotation with neurology once work-up is obtained. In the interim given intermittent symptoms will maintain on permissive hypertension and if clinically appropriate once MRI resulted and pending timeline would initiate oral regimen, maintain on aspirin with possibly consideration of plavix addition pending MRI brain, defer statin given intolerance with AM FLP, fall precautions. Mag, TSH, HgbA1c pending. 2. Lymphocytosis: Unclear specific etiology, absolute lymphocytes elevated, trend CBC with differential and if appropriate continue outpatient assessment. 3. Hypertension: Not on regimen but noted history previously, will maintain on permissive hypertension pending evaluation as noted above, add regimen once appropriate. 4. Hyperlipidemia: Not on regimen secondary to intolerance of statin therapy per her report, FLP in AM. 5. DVT prophylaxis: SCDs, Lovenox.
[2020-07-18] MEDS: Famotidine 20 MG Tablet PO (08:11)
[2020-07-18] MEDS: Enoxaparin 40 MG/0.4 ML Syringe SC (08:11)
[2020-07-18] MEDS: LORazepam 2 MG/ML Syringe 0.5 MG IV (11:13)
[2020-07-18] MEDS: 0.9% Saline Lock 10 ML Syringe IV (11:13)
--- NOTE | 2020-07-18 15:37 | CASEMGMT ---
SW completed a PHQ9 with patient as she may have had a TIA. She scored a 2 which indicates minimal depression. She denies any need for counseling resources. Buffy STONE MSW
--- NOTE | 2020-07-18 16:22 | PCM.DC ---
- Discharge Diagnoses Current Active Problems: Current Active and Chronic Problems HLD (hyperlipidemia) (Chronic) Obesity (BMI 30.0-34.9) (Chronic) Lymphocytosis (Acute) TIA (transient ischemic attack) (Acute) HTN (hypertension) (Chronic) You will use the following diet at home:: Cardiac - Low-cholesterol LDL diet Your food should be the consistency of: Regular Discharge Activity: Return to Normal Activity Call your doctor if you observe: Fever of 101 or Higher, Coldness, Increased Pain, Change in Color, Inability to urinate, Inability to have a bowel movement, Shortness of breath, Dizziness, Fainting spells, Swelling in the ankles, Chest pain, Prolonged hiccoughing, Increased palpitations (irregular heartbeat), Calf discomfort, Uncontrolled pain Additional Instructions: Patient is allergic to statin. LDL 175, total cholesterol 251, HDL 55. Because the advantages and disadvantages of TriCor. Advised to try TriCor 48 mg starting dose and check with PCP in 2 weeks and if she tolerates well may increase to 145 mg daily. Allergies/Adverse Reactions: Allergies iodine Allergy (Verified 07/17/20 21:44) Shortness of breath Gcqewdz-Yzx-Evg Reductase Inhibitor Allergy (Verified 07/17/20 21:44) Rash ANTIBIOTICS Allergy (Uncoded 07/17/20 21:44) Shortness of breath Medications to take at Discharge Aspirin [Aspirin, Baby] 81 mg PO QODAY 10/13/17 Cholecalciferol (VIT D3) [Vitamin D3] 1,000 unit PO DAILY 07/17/20 Fenofibrate [Tricor] 48 mg PO DAILY #30 tab 07/18/20 The following prescriptions were given: Fenofibrate [Tricor] 48 mg PO DAILY #30 tab Transmission Status: Pending to [facility] #30 Primary Care Physician: Bennett Weir MD [Primary Care Provider] - Please follow up with your Primary Care Physician in: In 2 weeks Test Results: Test results from this visit will be discussed in further detail at your follow-up appointment, if applicable.
--- NOTE | 2020-07-18 16:24 | DS.PCM_ITS ---
Discharge Date and Diagnosis - Problem List Patient Problems: Active and Suspected Problems Lymphocytosis (Acute) TIA (transient ischemic attack) (Acute) Date of Admission: 07/17/20 Date of Discharge: 07/18/20 - Primary Discharge Diagnosis Acute Problems: Active Problems Lymphocytosis (Acute) TIA (transient ischemic attack) ruled out. - Secondary Discharge Diagnosis Chronic Problems: Chronic Problems HLD (hyperlipidemia) (Chronic) Obesity (BMI 30.0-34.9) (Chronic) HTN (hypertension) (Chronic) Hospital Course and Treatment Operations: None Summary of Care Provided: The patient is a 80 year old F with history of hypertension but no prior history of a stroke, dyslipidemia allergic to statin admitted with left lower extremity sensation of weakness/myoclonic jerks right calf muscle intermittently for last 3 days. EKG normal sinus rhythm. Troponin negative. 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 CT of the brain no acute change. Patient was admitted in PCU as per stroke protocol. Patient had MRI brain, MRA head and neck done. MRI brain negative for acute intracranial abnormality and MRA head and neck reported normal. 2D echo EF 70% with no evidence of diastolic dysfunction. Normal atrial septum. UA negative. Glucose 119. Fasting profile shows LDL 175 and total cholesterol 251. TSH normal. A1c 5.3 in normal range. Blood pressure was elevated 174/75 and fluctuates to 134/58 and 132/70. Patient stated her blood pressure was normal before. Prescription for lisinopril and TriCor giv en. Patient other comorbidities lymphocytosis. Other comorbidities hypertension and dyslipidemia as mentioned above TIA/acute stroke ruled out. Patient is discharged home. Discharge medications discussed with the patient. Discharge medication reconciliation done. Discharge follow-up instructions completed. Discharge process discussed with the patient and all questions were answered to patient's satisfaction. Total time spent, exact 35 minutes on discharge meds reconciliation, examination, coordination of care with nurses and ancillary staff, review of imaging and blood test and discussion with the patient on follow-up instructions [] Patient Problems: Active and Suspected Problems Lymphocytosis (Acute) TIA (transient ischemic attack) (Acute) Objective: Patient came to ER with left lower extremity sensation of weakness for last 3 days. EKG sinus rhythm. Patient blood sugar was found elevated in ED. NIH stroke scale 0. Actually patient denies any left lower extremity weakness but she felt sudden calf jerk or possible myoclonic jerk. NIH stroke scale 0. Denies visual abnormality, blurry vision hemianopia/quadrantanopia, dysarthria, dysphagia, language abnormality or slurring. No history of prior stroke. Sinus rhythm on rn cardiac cath. Physical exam General: Alert, Oriented x3, Cooperative HEENT: Atraumatic, PERRLA, EOMI, Normocephalic Oral: No Gingival or Mucosal Lesions/ Ulcerations Neck: Supple, No JVD, Negative Carotid Bruits Lungs: Air entry diminished in bilateral lung bases. No crepitation/rhonchi Cardiovascular: Regular rate, Regular Rhythm, Normal S1, Normal S2, No murmurs Abdomen: Bowel Sounds Present, Soft, Non Tender, Non-Distended : No renal angle tenderness. No suprapubic tenderness. Extremities: No edema, Capillary Refill Less than 3 Seconds Skin: No rashes, No breakdown Musculoskeletal: No Tenderness to Palpation of Joints or Extremities Neurological: NIH stroke scale 0 cranial nerves II-XII grossly intact, Deep Tendon Reflexes 2+/4, muscle strength 5/5 at major joints Psych/Mental Status: Normal Affect, Appropriate. - Physical Exam Vitals/I&O's: Vital Signs Temp Pulse Resp BP Pulse Ox 98.8 F 87 16 152/70 H 97 07/18/20 13:29 07/18/20 13:29 07/18/20 13:29 07/18/20 13:29 07/18/20 13:29 Oxygen Delivery Method Room Air Weight: 162 lb 4.163 oz Body Mass Index (BMI) 31.6 Finger Stick Blood Glucose 119 Intake and Output for Last 24 Hours 07/16/20 07/17/20 07/18/20 23:59 23:59 23:59 Intake Total 1175 / 1175 Balance 1175 / 1175 Laboratory Results 07/17/20 21:30: WBC 11.1 H, RBC 4.80, Hgb 15.5 H, Hct 47.0, MCV 97.9, MCH 32.3 H , MCHC 33.0, RDW Std Deviation 45.5 H, RDW Coeff of Alex 13.1, Plt Count 260, MPV 9.5, Immature Gran % (Auto) 0.600, Neut % (Auto) 40.8 L, Lymph % (Auto) 48.9 H, [place] % (Auto) 6.9, Eos % (Auto) 2.3, Baso % (Auto) 0.5, Absolute Neuts (auto) 4.5, Absolute Lymphs (auto) 5.43 H, Nucleated RBC % 0, Differential Comment SCANNED 07/17/20 21:30: PT 12.5, INR 1.0, APTT 29.5 07/17/20 21:30: Sodium 140, Potassium 3.7, Chloride 106, Carbon Dioxide 31.0, Anion Gap 3 L, BUN 19 H, Creatinine 0.88, Estim Creat Clear Calc 42.56, Est GFR (MDRD) Af Amer 80, Est GFR (MDRD) Non-Af 66, BUN/Creatinine Ratio 21.7 H, Glucose 102, Calcium 9.7, Troponin I < 0.015 07/17/20 21:30: Hemoglobin A1c 5.3 07/17/20 21:30: Magnesium 2.6 07/17/20 22:22: POC Glucose 119 H 07/17/20 22:35: Urine Color Straw, Urine Clarity Clear, Urine pH 7.0, Ur Specific [place] 1.005, Urine Protein Negative, Urine Glucose (UA) Normal, Urine Ketones Negative, Urine Occult Blood 50 H, Urine Nitrite Negative, Urine Bilirubin Negative, Urine Urobilinogen Normal, Ur Leukocyte Esterase 25 H, Urine RBC 0 SEEN, Urine WBC 0 SEEN, Ur Squamous Epith Cells 0 SEEN, Urine Bacteria 0 SEEN, Urine Mucus 0 SEEN 07/18/20 05:52: WBC 11.4 H, RBC 4.38, Hgb 13.8, Hct 42.5, MCV 97.0, MCH 31.5, MCHC 32.5, RDW Std Deviation 46.5 H, RDW Coeff of Alex 13.1, Plt Count 210, MPV 9.3, Immature Gran % (Auto) 0.800, Neut % (Auto) 59.5, Lymph % (Auto) 31.0, [place] % (Auto) 6.8, Eos % (Auto) 1.4, Baso % (Auto) 0.5, Absolute Neuts (auto) 6.8, Absolute Lymphs (auto) 3.53, Nucleated RBC % 0 07/18/20 05:52: Sodium 143, Potassium 4.0, Chloride 112 H, Carbon Dioxide 25.0, Anion Gap 6, BUN 16, Creatinine 0.64, Estim Creat Clear Calc 31.15, Est GFR (MDRD) Af Amer 114, Est GFR (MDRD) Non-Af 94, BUN/Creatinine Ratio 25.0 H, Glucose 98, Calcium 8.6, Total Bilirubin 0.40, AST 13 L, ALT 18, Alkaline Phosphatase 71, Total Protein 6.5, Albumin 3.4, Globulin 3.1, Albumin/Globulin Ratio 1.1, Triglycerides 106, Cholesterol 251 H, LDL Cholesterol 175 H, VLDL Cholesterol 21, HDL Cholesterol 55, TSH 1.44 Current Medications Acetaminophen (Acetaminophen 325 Mg Tablet) 650 mg PO Q6H PRN PRN PRN Reason: Pain Score 1-10/Temp > 100.7 F Al Hydroxide/Mg Hydroxide (Mag Hydrox/Al Hydrox/Simeth 30 Ml Udc) 30 ml PO Q6H PRN PRN PRN Reason: Gastric Burning Albuterol Sulfate (Albuterol 2.5 Mg/3 Ml Vial.Neb.) 2.5 mg INHALATION Q2H PRN PRN PRN Reason: Dyspnea, wheezing Aspirin (Aspirin 81 Mg Tab.Chew) 81 mg PO QODAY@0800 [facility] Cholecalciferol (Cholecalciferol (Vit D3) 1,000 Unit (25mcg)) 1,000 unit PO DAILY [facility] Last Admin: 07/18/20 08:11 Dose: 1,000 unit Documented by: Enoxaparin Sodium (Enoxaparin 40 Mg/0.4 Ml Syringe) 40 mg SC DAILY [facility] Last Admin: 07/18/20 08:11 Dose: 40 mg Documented by: Famotidine (Famotidine 20 Mg Tablet) 20 mg PO BID [facility] Last Admin: 07/18/20 08:11 Dose: 20 mg Documented by: Guaifenesin (Guaifenesin 10 Ml Udc (200mg/10ml)) 20 ml PO Q4H PRN PRN PRN Reason: COUGH Hydralazine HCl (Hydralazine 20 Mg/Ml Vial) 5 mg IV Q30M PRN PRN Reason: to maintain BP goals Labetalol HCl (Labetalol (Prefilled) 20 Mg/4 Ml) 10 - 20 mg IV Q10M PRN PRN PRN Reason: to Maintain BP Goals Magnesium Hydroxide (Magnesium Hydroxide 30 Ml Udc) 30 ml PO DAILY PRN PRN PRN Reason: Constipation Melatonin (Melatonin 3 Mg Tablet) 3 mg PO QHS PRN PRN PRN Reason: INSOMNIA Ondansetron HCl (Ondansetron 4 Mg/2 Ml Vial) 4 mg IV Q8H PRN PRN PRN Reason: NAUSEA/VOMITING Prochlorperazine Edisylate (Prochlorperazine 10 Mg/2 Ml Vial) 5 mg IV Q4H PRN PRN PRN Reason: Breakthrough Nausea/Vomiting Psyllium Hydrophilic Mucilloid (Psyllium 1 Packet) 1 packet PO DAILY PRN PRN PRN Reason: Constipation Senna/Docusate Sodium (Senna/Docusate Sodium 1 Tablet) 2 tablet PO BID PRN PRN PRN Reason: Constipation Sodium Chloride (0.9% Saline Lock 10 Ml Syringe) 10 - 40 ml IV UD PRN PRN Reason: SALINE FLUSH Last Admin: 07/18/20 11:13 Dose: 10 ml Documented by: Throat Lozenges (Benzocaine/Menthol 1 Lozenge) 1 lozenge MUCOUS MEM Q2H PRN PRN PRN Reason: SORE THROAT Discharge Activity: Return to Normal Activity Call your doctor if you observe: Fever of 101 or Higher, Coldness, Increased Pain, Change in Color, Inability to urinate, Inability to have a bowel movement, Shortness of breath, Dizziness, Fainting spells, Swelling in the ankles, Chest pain, Prolonged hiccoughing, Increased palpitations (irregular heartbeat), Calf discomfort, Uncontrolled pain Home Medications: Medications to take at Discharge Aspirin [Aspirin, Baby] 81 mg PO QODAY 10/13/17 Cholecalciferol (VIT D3) [Vitamin D3] 1,000 unit PO DAILY 07/17/20 Fenofibrate [Tricor] 48 mg PO DAILY #30 tab 07/18/20 Following Prescriptions Were Given to Patient: Fenofibrate [Tricor] 48 mg PO DAILY #30 tab Transmission Status: Pending to [facility] #30 Primary Care Physician: Bennett Weir MD [Primary Care Provider] - Please follow up with your Primary Care Physician in: In 2 weeks Medical Necessity - Tobacco Use Smoking Status: Never smoker Tobacco Use: Non-smoker Meaningful Use Info Meaningful Use Diagnoses (Choose all that apply): None applicable OBSV E&M: 45122 Observation care discharge
== END 2020-07-18 16:22 | disposition home or self-care (01) ==
LOC: ED 23:10 → PCU 07-18 00:25
PROVIDERS: Admitting Provider Family Medicine; Emergency Provider Emergency Medicine; PCP Internal Medicine; Visit Provider Internal Medicine
DX: G45.9 Transient cerebral ischemic attack, unspecified (principal); D72.820 Lymphocytosis (symptomatic); I10 Essential (primary) hypertension; Z86.73 Personal history of transient ischemic attack (TIA), and cerebral infarction without residual deficits; Z79.82 Long term (current) use of aspirin; R73.9 Hyperglycemia, unspecified; R53.81 Other malaise; E78.5 Hyperlipidemia, unspecified; R94.31 Abnormal electrocardiogram [ECG] [EKG]; I70.0 Atherosclerosis of aorta; E66.9 Obesity, unspecified; Z68.28 Body mass index [BMI] 28.0-28.9, adult
CPT/HCPCS: 70450; 70544; 70547; 70551; 71045; 80048; 80053; 80061; 81001; 82962; 83036; 83735; 84443; 84484; 85025; 85610; 85730; 92610; 93005; 93306; 94762; 96361; 96372; 96374; 97162; 97166; 97802; 99218; 99251; 99285; J7030; A4216; G0378; G0463

== ENCOUNTER 2020-09-03 22:54 | Emergency (ER) | payer MEDICARE, OTHER, SELFPAY ==
[2020-07-18 01:15] VITALS: BMI 31.6
[2020-09-03 22:56] VITALS: BP 126/58; PULSE 83; RESP 16; TEMP 37.1; O2SAT 97; BMI 31.0
[2020-09-03 23:57] VITALS: BP 139/59; PULSE 79; RESP 16; O2SAT 97
--- NOTE | 2020-09-04 00:03 | EKG12_ITS ---
Test Reason : HTN Blood Pressure : / mmHG Vent. Rate : 070 BPM Atrial Rate : 070 BPM P-R Int : 188 ms QRS Dur : 086 ms QT Int : 420 ms P-R-T Axes : 058 032 058 degrees QTc Int : 453 ms Normal sinus rhythm Normal ECG Confirmed by ROBERT BILLINGS, EHSAN ([id number]), school photograph editor MILLI CASEY ([id number]) on 09/05/2020 11:25:59 AM Referred By: ANTHONY Confirmed By:EHSAN JONES MD
[2020-09-04 00:16] LABS: Absolute Neutrophil Count 4.4 X10^3/uL (2.0-7.7); Basophil# 0.07 X10^3/uL; Basophil% 0.7 % (0-1); Eosinophil# 0.22 X10^3/uL; Eosinophils% 2.2 % (0-5); Lymphocyte % 44.7 % (19-41); Mean Corp Hgb Conc 32.6 g/dL (32-36); Mean Corpuscular Hgb 31.9 pg (27.0-32.0); Mean Corpuscular Volume 97.9 fL (81-99); Monocyte# 0.69 X10^3/uL; NRBC Flagged by Analyzer 0 % (0-5); Neutrophil % 44.7 % (47-70); Platelet Count 265 K/mm3 (150-450); RBC Distribution Width CV 13.2 % (11.6-14.6); RBC Distribution Width SD 46.8 fl (35.1-43.9); White Blood Count 9.9 K/mm3 (4.4-11.0)
[2020-09-04 00:30] LABS: Anion Gap 5 (5-15); BUN 17 mg/dL (7-18); BUN/Creat Ratio 22.3 RATIO (10-20); Calcium,Total 9.5 mg/dL (8.5-10.1); Chloride 107 mmol/L (98-107); Creatinine, Serum 0.76 mg/dL (0.55-1.02); EST Glomerular Filtration Rate 77 mL/min (>60); Est Glom Filt Rate - Afr Amer 93 mL/min (>60); Estimated Creatinine Clearance 35.88 ml/min; Glucose 99 mg/dL (74-106); Potassium 3.8 mmol/L (3.5-5.1); Sodium Level 140 mmol/L (136-145)
[2020-09-04 00:54] LABS: Bacteria 0 SEEN /hpf (None Seen); Mucous, Urine 0 SEEN /hpf (<or=2+); Squamous Epithelial Cells - UA 0 SEEN /hpf (5-10)
[2020-09-04 00:55] LABS: Color, Urine Yellow (Yellow); Glucose, Dipstick Normal (Normal); Ketone-Dipstick Negative (Negative); Leukocyte Esterase-Dipstick 25 /ul (Negative); Nitrite-Dipstick Negative (Negative); Occult Blood-Urine 25 /ul (Negative); Protein-Dipstick Negative (Negative); Specific Gravity, Urine 1.005 (1.002-1.030); Urine Bilirubin Dipstick Negative (Negative); Urine Clarity Clear (Clear); Urine Urobilinogen Normal (Normal); Urine pH 6.5 (5.0 - 8.0)
[2020-09-04 01:00] VITALS: RESP 16
[2020-09-04 01:01] LABS: Red Blood Cells-Urine 0-5 SEEN /hpf (0-5); White Blood Cells 0-5 SEEN /hpf (0-5)
--- NOTE | 2020-09-04 01:21 | ED.DCSUM_ITS ---
History of Present Illness Chief Complaint: Hypertension Informant: Patient Onset: Today Narrative: Patient is an 80-year-old female with a history of hypertension presenting with elevated blood pressure. Patient states she has felt jittery and drained all day. She took her blood pressure was 210/92 at home. She did take an extra dose of her lisinopril 10 mg and her blood pressure started come down. 3 months ago she states she had a similar ED visit. That was when she was put on lisinopril. She follows with her PCP for her blood pressure. Patient denies associated chest pain, shortness of breath or difficulty breathing. Denies any swelling of her legs. She denies any nausea, vomiting or change in bowel habits. No urinary symptoms. No other complaints at this time. No headache or vision changes. Past Medical History - Allergies and Home Meds Allergies/Adverse Reactions: Allergies iodine Allergy (Verified 07/17/20 21:44) Shortness of breath Etsnwzb-Nbb-Kqz Reductase Inhibitor Allergy (Verified 07/17/20 21:44) Rash fenofibrate [From Tricor] Adverse Reaction (Verified 09/03/20 23:06) Other ELEVATED BP ANTIBIOTICS Allergy (Uncoded 07/17/20 21:44) Shortness of breath Primary Care Physician: Bennett Weir MD [Primary Care Provider] - Past Medical History: - - Hyperlipidemia, TIA, hypertension Surgical History: - - Right colon resection reportedly for precancerous lesions. Smoking Status: Never smoker - Family History Maternal Family History: Reports: Heart Disease Paternal Family History: Reports: Heart Disease Review of Systems General: Reports: Malaise. Denies: Chills, Fever, Sweats Eyes: Denies: Visual changes - bilaterally, Diplopia ENT: Denies: Rhinorrhea, Sore throat Cardiovascular: Denies: Chest pain, Palpitations Respiratory: Denies: Dyspnea, Cough, Dyspnea on exertion Gastrointestinal: Denies: Abdominal pain, Nausea, Vomiting, Diarrhea, Melena, Hematochezia Genitourinary: Denies: Dysuria, Hematuria, Frequency Musculoskeletal: Denies: Back pain, Extremity Pain Skin: Denies: Rash, Wounds Neurological: Denies: Headache, Weakness, Numbness Physical Exam Vital Signs/Narrative: Vital Signs Temp Pulse Resp BP Pulse Ox 09/03/20 23:57 79 16 139/59 H 97 09/03/20 22:56 98.7 F 83 16 126/58 H 97 Inital Vital Signs reviewed: Yes General: Well nourished, Well developed, No Acute Distress Head: Normocephalic, Atraumatic Eyes: Perrl, EOMI ENT: Moist mucous membranes, No rhinorrhea Neck: Supple, Nontender Cardiovascular: Regular rate, Regular rhythm, No murmurs Respiratory: No distress, CTA bilaterally, Chest nontender Abdomen: Soft, Nontender, Nondistended, Normal bowel sounds Back: Nontender, Normal Inspection Extremities: Nontender, No edema Skin: Normal color, No rash Neurological: Alert, Oriented x3, Cranial nerves II-XII grossly intact, Normal Strength, Normal Sensation Psychological: Normal affect, Normal Mood Diagnostic/Tx/Re-eval Laboratory Data 09/03/20 09/03/20 09/04/20 23:10 23:10 00:48 WBC 9.9 RBC 4.70 Hgb 15.0 Hct 46.0 MCV 97.9 MCH 31.9 MCHC 32.6 RDW Std Deviation 46.8 H RDW Coeff of Alex 13.2 Plt Count 265 MPV 10.0 Immature Gran % (Auto) 0.700 Neut % (Auto) 44.7 L Lymph % (Auto) 44.7 H [place] % (Auto) 7.0 Eos % (Auto) 2.2 Baso % (Auto) 0.7 Absolute Neuts (auto) 4.4 Absolute Lymphs (auto) 4.40 Nucleated RBC % 0 Sodium 140 Potassium 3.8 Chloride 107 Carbon Dioxide 28.0 Anion Gap 5 BUN 17 Creatinine 0.76 Estim Creat Clear Calc 35.88 Est GFR (MDRD) Af Amer 93 Est GFR (MDRD) Non-Af 77 BUN/Creatinine Ratio 22.3 H Glucose 99 Calcium 9.5 Troponin I < 0.015 Urine Color Yellow Urine Clarity Clear Urine pH 6.5 Ur Specific [place] 1.005 Urine Protein Negative Urine Glucose (UA) Normal Urine Ketones Negative Urine Occult Blood 25 H Urine Nitrite Negative Urine Bilirubin Negative Urine Urobilinogen Normal Ur Leukocyte Esterase 25 H Urine RBC 0-5 SEEN Urine WBC 0-5 SEEN Ur Squamous Epith Cells 0 SEEN Urine Bacteria 0 SEEN Urine Mucus 0 SEEN - Rhythm Strip Rhythm Strip: Sinus Rhythm Rate: 70 Ectopy: None - EKG Initial EKG Interpretation: Sinus Rhythm, - - Normal sinus rhythm rate of 70 Normal axis Normal intervals Normal ST segments Compared to prior EKG on 07/17/2020 patient has no significant changes - Medical Decision Making Patient evaluated for elevated blood pressure reading at home. She is normotensive in the ER. She did take an extra dose of her lisinopril which seems to resolved her hypertension. Given her age I did check some screening labs to look for signs of endorgan damage secondary to hypertension. These were all normal. Patient has no finding system with ACS, stroke, kidney failure or encephalopathy. Patient counseled to follow-up with her primary care doctor for further blood pressure management. Will not make any medication adjustments at this time. Patient is counseled on signs and symptoms requiring return to the emergency room. Patient verbalizes agreement and understand this plan. Patient discharged home in stable and improved condition. ED Disposition - Plan for ED Patient: Disposition: Home or Assisted Living Diagnosis: Elevated blood pressure reading Instructions: ED Hypertension, Established Referrals: Bennett Weir MD [Primary Care Provider] - Additional Instructions: Your blood pressure has normalized. Please follow-up with your primary care doctor for further medication adjustments as needed. Continue take your blood pressure log. Return the emergency his room if you develop chest pain, vision changes, strokelike symptoms or trouble breathing.
== END 2020-09-04 01:48 | disposition home or self-care (01) ==
PROVIDERS: Emergency Provider Emergency Medicine; PCP Internal Medicine
DX: I10 Essential (primary) hypertension (principal); Z86.73 Personal history of transient ischemic attack (TIA), and cerebral infarction without residual deficits; Z79.82 Long term (current) use of aspirin; Z79.899 Other long term (current) drug therapy
CPT/HCPCS: 80048; 81001; 84484; 85025; 93005; 99284

== ENCOUNTER 2020-11-22 12:52 | Emergency (ER) | payer MEDICARE, OTHER, SELFPAY ==
[2020-11-22 12:53] VITALS: BP 155/76; PULSE 89; RESP 17; TEMP 36.4; O2SAT 95; BMI 29.4
[2020-11-22 13:04] VITALS: BMI 29.4
--- NOTE | 2020-11-22 13:29 | CT_ITS ---
STUDY: CT BRAIN WITHOUT CONTRAST REASON FOR EXAM: Female, 80 years old. Headache, lightheaded RADIATION DOSAGE (If Supplied By Facility): CTDIvol = ( 44.99 ) mGy, DLP = ( 745.49 ) mGycm TECHNIQUE: Transaxial CT imaging of the brain was performed without administration of intravenous contrast material. Individualized dose optimization techniques were used for this CT. COMPARISON: Comparison is made with prior study dated 07/17/2020. FINDINGS: Normal soft tissue structures. There is hyperostosis frontalis internus. There is mild cerebral atrophy with widening of the extra-axial spaces and ventricular dilatation. Normal white matter tracts of the cerebral hemispheres. Normal basal ganglia and thalami. Normal brainstem. Normal cerebellum. There is no intracranial hemorrhage. There are no findings of an acute ischemic infarction. Normal visualized paranasal sinuses. CT/Brain/Head without Contrast IMPRESSION: Chronic involutional changes of the brain. Electronically Signed: Rubio Carrera MD at 14:16 EDT , Service support ,
--- NOTE | 2020-11-22 13:30 | EKG12_ITS ---
Test Reason : NEURO Blood Pressure : / mmHG Vent. Rate : 073 BPM Atrial Rate : 073 BPM P-R Int : 184 ms QRS Dur : 080 ms QT Int : 410 ms P-R-T Axes : 051 026 063 degrees QTc Int : 451 ms Normal sinus rhythm with sinus arrhythmia Normal ECG Confirmed by [place] BILLINGS, JENI ([id number]), editor publications MILLI CASEY ([id number]) on 11/23/2020 1:08:30 PM Referred By: WAQAS Confirmed By:JENI OSBORNE MD
--- NOTE | 2020-11-22 13:31 | EDS_ITS ---
HPI History of Present Illness Chief Complaint: Neuro S/Sx Informant: patient Narrative Narrative: Patient is an 80-year-old female with a past medical history of hypertension, hyperlipidemia, TIA who presents to the emergency department for lightheadedness, headache. Her initial symptoms started earlier today. She has had these issues before in the past and never found a reason for her symptoms. She states that she thought she was going to be hypotensive given her lightheadedness and she took her blood pressure. Her blood pressure increased from 130 systolic to 190 systolic. She did take her blood pressure medication this morning. That time she felt she needed to come to the emergency department. She was feeling nauseous associated this. She had head pressure bilaterally. She denies any vision changes. She has not had any chest pain, shortness of breath or heart palpitations through any of this. She denies any recent illness including any cough, cold, congestion. No change in moving bowels. No urinary symptoms. No weakness or loss of sensation in any extremity. At time of arrival to the emerge department she feels like all of her symptoms are starting to improve at this point. 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 PFSH PFSH Home Medications aspirin 81 mg PO QODAY 10/13/17 [History Last Taken Unknown] cholecalciferol (vitamin D3) 1,000 unit PO DAILY 07/17/20 [History Last Taken Unknown] lisinopril 10 mg PO DAILY #30 tab 07/18/20 [Rx Last Taken Unknown] Allergy/AdvReac Type Severity Reaction Status Date / Time iodine Allergy Shortness Verified 11/22/20 12:53 of breath Cgwecnq-Ptt-Vaj Reductase Allergy Rash Verified 11/22/20 12:53 Inhibitor fenofibrate [From Tricor] AdvReac Other Verified 11/22/20 12:53 ANTIBIOTICS Allergy Shortness Uncoded 07/17/20 21:44 of breath Social History Smoking Status: Never smoker ROS ROS ED Constitutional Constitutional ED: Denies chills or fever(s) Eyes Eyes: Denies change in vision ENT ENT ED: Denies epistaxis or rhinorrhea Cardiovascular Cardiovascular: Denies chest pain or palpitations Respiratory/Chest Respiratory/Chest: Denies cough, dyspnea or dyspnea on exertion Gastrointestinal Gastrointestinal: Reports nausea; Denies abdominal pain, diarrhea or vomiting Genitourinary Genitourinary ED: Denies dysuria, hematuria or urinary frequency Musculoskeletal Musculoskeletal: Denies back pain or neck pain Integumentary Denies rash Neurologic Neurologic: Reports headache(s); Denies weakness EXAM Physical Exam Const Vital Signs: 11/22/20 12:53 11/22/20 14:49 11/22/20 14:56 Temperature 97.6 F L Temperature Source Oral Pulse Rate 89 87 Pulse Rate [Lying] 84 Pulse Rate [Sitting] 83 Pulse Rate [Standing] 80 Respiratory Rate 17 18 Blood Pressure 155/76 H 160/60 H Blood Pressure [Lying] 138/54 H Blood Pressure [Sitting] 156/55 H Blood Pressure [Standing] 160/60 H Blood Pressure Mean 102 93 Blood Pressure Mean [Lying] 82 Blood Pressure Mean [Sitting] 88 Blood Pressure Mean [Standing] 93 Pulse Ox 95 96 Oxygen Delivery Method Room Air Room Air Positive well nourished and well developed General Appearance ED: well developed and NAD HEENT Reports normocephalic, head/scalp atraumatic and moist mucous membranes Eyes PERRL and EOMs intact bilaterally Neck no lymphadenopathy and supple General: Negative for tenderness Chest Wall inspection of chest normal Resp normal respiratory effort and clear to auscultation bilaterally Auscultation: Negative for rales, rhonchi or wheezes Cardio regular rate and regular rhythm Rate: other Other Details: Positive systolic murmur. GI normal to inspection, nondistended, normoactive bowel sounds and non-tender Palpation: soft; Negative for guarding or rebound tenderness present Back/Spine no CVA tenderness Extremity normal to inspection General Extremety ED: Negative for edema or tenderness General Extremity: Negative for edema Neuro oriented x3, CN's II-XII intact bilaterally and no sensory deficits noted Sensorium / Orientation: alert Motor Exam: strength 5/5 throughout Psych mental status grossly normal Skin no rashes or lesions noted MDM MDM MDM Narrative Medical decision making narrative: Patient presents to the emergency department for lightheadedness, high blood pressure, nausea and headache. She has had similar episodes to this before in the past. Upon arrival to the ED she feels like her symptoms are starting to improve. Her blood pressure is 155/76 on arrival. She feels like this is much improved from whenever she was at home. Will check orthostatic vital signs giving her lightheadedness. Will check basic lab work and CT scan of the head with her history. Patient's work-up did not reveal any significant acute abnormality. She is not anemic. She does have a high white blood cell count. No significant electrolyte disturbance. Troponin is within normal limits. Urine does not show any signs of infection. Repeat CT scan of the head did not show any acute intracranial abnormality. Orthostatic vital signs were obtained and negative. She is feeling much better throughout course of ED stay. She does feel countable going home. She is to have close follow-up with her PCP. Return precautions are reviewed including any chest pain, shortness of breath or repeat symptoms. Lab Data Labs: Laboratory Results - last 24 hr 11/22/20 11/22/20 11/22/20 13:42 13:42 13:43 WBC 8.8 RBC 4.46 Hgb 13.9 Hct 42.6 MCV 95.5 MCH 31.2 MCHC 32.6 RDW Std Deviation 46.0 H RDW Coeff of Alex 13.0 Plt Count 230 MPV 9.4 Immature Gran % (Auto) 0.800 Neut % (Auto) 67.7 Lymph % (Auto) 22.6 [place] % (Auto) 7.2 Eos % (Auto) 1.4 Baso % (Auto) 0.3 Absolute Neuts (auto) 5.9 Absolute Lymphs (auto) 1.98 Nucleated RBC % 0 Sodium 140 Potassium 4.2 Chloride 109 H Carbon Dioxide 30.0 Anion Gap 1 L BUN 20 H Creatinine 0.85 Estim Creat Clear Calc 42.21 Est GFR (MDRD) Af Amer 82 Est GFR (MDRD) Non-Af 68 BUN/Creatinine Ratio 23.6 H Glucose 111 H Calcium 9.0 Total Bilirubin 0.40 AST 12 L ALT 19 Alkaline Phosphatase 74 Troponin I High Sens 5.7 Total Protein 6.6 Albumin 3.4 Globulin 3.2 Albumin/Globulin Ratio 1.1 Urine Color Straw Urine Clarity Clear Urine pH 7.0 Ur Specific [place] 1.005 Urine Protein Negative Urine Glucose (UA) Normal Urine Ketones Negative Urine Occult Blood 25 H Urine Nitrite Negative Urine Bilirubin Negative Urine Urobilinogen Normal Ur Leukocyte Esterase Negative Urine RBC 0 SEEN Urine WBC 0 SEEN Ur Squamous Epith Cells 0 SEEN Urine Bacteria 0 SEEN Urine Mucus 0 SEEN Radiography Diagnostic Testing: Radiology Impression Brain CT 11/22/20 13:29 IMPRESSION: Chronic involutional changes of the brain. Electronically Signed: Rubio Carrera MD at 14:16 EDT , Service support , EKG Initial EKG: Attestation: I personally reviewed and interpreted this EKG as follows: (Rate of 73 bpm and normal sinus rhythm. Normal intervals. Normal axis. No significant ST elevations or depressions.) Discharge Plan Triage Chief Complaint: Neuro S/Sx ED Provider: Angel Cordero Dx/Rx/DC Orders Clinical Impression: Episodic lightheadedness, HTN (hypertension) Instructions: ED Dizziness, Uncertain Cause Prescriptions: No Action aspirin 81 MG tablet,chewable 81 mg PO QODAY RF: 0 cholecalciferol (vitamin D3) 1,000 UNIT tablet 1,000 unit PO DAILY RF: 0 lisinopril 10 MG tablet 10 mg PO DAILY Qty: 30 RF: 0 Primary Care Provider: Bennett Weir Referrals: Bennett Weir MD [Primary Care Provider] - 3-5 Days Disposition Disposition: Home, Self Care
[2020-11-22 13:47] LABS: Absolute Lymphocyte Count 1.98 X10^3/uL (0.83-4.51); Absolute Neutrophil Count 5.9 X10^3/uL (2.0-7.7); Basophil# 0.03 X10^3/uL; Basophil% 0.3 % (0-1); Eosinophil# 0.12 X10^3/uL; Eosinophils% 1.4 % (0-5); Hematocrit 42.6 % (37-47); Hemoglobin 13.9 g/dL (12.0-15.0); Lymphocyte # 1.98 X10^3/ul (0.83-4.51); Lymphocyte % 22.6 % (19-41); Mean Corp Hgb Conc 32.6 g/dL (32-36); Mean Corpuscular Hgb 31.2 pg (27.0-32.0); Mean Corpuscular Volume 95.5 fL (81-99); Mean Platelet Vol. 9.4 fl (6.2-12.0); Monocyte# 0.63 X10^3/uL; Monocyte% 7.2 % (0-10); NRBC Flagged by Analyzer 0 % (0-5); Neutrophil # 5.92 X10^3/uL (2.7-7.7); Neutrophil % 67.7 % (47-70); Platelet Count 230 K/mm3 (150-450); Red Blood Count 4.46 M/mm3 (4.2-5.4); White Blood Count 8.8 K/mm3 (4.4-11.0)
[2020-11-22 13:55] LABS: Bacteria 0 SEEN /hpf (None Seen); Mucous, Urine 0 SEEN /hpf (<or=2+); Red Blood Cells-Urine 0 SEEN /hpf (0-5); Squamous Epithelial Cells - UA 0 SEEN /hpf (5-10); White Blood Cells 0 SEEN /hpf (0-5)
[2020-11-22 13:56] LABS: Color, Urine Straw (Yellow); Glucose, Dipstick Normal (Normal); Ketone-Dipstick Negative (Negative); Leukocyte Esterase-Dipstick Negative /ul (Negative); Nitrite-Dipstick Negative (Negative); Occult Blood-Urine 25 /ul (Negative); Protein-Dipstick Negative (Negative); Specific Gravity, Urine 1.005 (1.002-1.030); Urine Bilirubin Dipstick Negative (Negative); Urine Clarity Clear (Clear); Urine Urobilinogen Normal (Normal)
[2020-11-22 14:07] LABS: ALB/GLOB Ratio 1.1 RATIO (0.9-2.4); AST(SGOT) 12 U/L (15-37); Alanine Aminotransfer ALT/SGPT 19 U/L (13-56); Albumin, Serum 3.4 g/dL (3.2-5.0); Alkaline Phosphatase 74 U/L (45-117); Anion Gap 1 (5-15); BUN 20 mg/dL (7-18); BUN/Creat Ratio 23.6 RATIO (10-20); Chloride 109 mmol/L (98-107); Creatinine, Serum 0.85 mg/dL (0.55-1.02); EST Glomerular Filtration Rate 68 mL/min (>60); Est Glom Filt Rate - Afr Amer 82 mL/min (>60); Estimated Creatinine Clearance 42.21 ml/min; Globulin 3.2 g/dL (2.2-4.2); Glucose 111 mg/dL (74-106); Potassium 4.2 mmol/L (3.5-5.1); Protein, Total 6.6 g/dL (6.4-8.2); Sodium Level 140 mmol/L (136-145); Troponin-I HS 5.7 pg/mL (3.0-53.7)
[2020-11-22 14:49] VITALS: BP 138/54; BP 156/55; BP 160/60; PULSE 80; PULSE 83; PULSE 84
[2020-11-22 14:56] VITALS: BP 160/60; PULSE 87; RESP 18; O2SAT 96
[2020-11-22 15:28] VITALS: BP 127/46; PULSE 78; RESP 16; O2SAT 95
[2020-11-22 15:54] LABS: Thyroid Stim Hormone (TSH) 0.68 uIU/mL (0.358-3.74)
== END 2020-11-22 15:28 | disposition home or self-care (01) ==
PROVIDERS: Emergency Provider Emergency Medicine; PCP Internal Medicine
DX: R42 Dizziness and giddiness (principal); I10 Essential (primary) hypertension; E78.5 Hyperlipidemia, unspecified; Z86.73 Personal history of transient ischemic attack (TIA), and cerebral infarction without residual deficits; Z79.82 Long term (current) use of aspirin; Z79.899 Other long term (current) drug therapy
CPT/HCPCS: 70450; 80053; 81001; 84443; 84484; 85025; 93005; 99285; A4216

== ENCOUNTER 2021-10-07 02:12 | Emergency (ER) | payer MEDICARE, OTHER, SELFPAY ==
[2021-10-07 02:14] VITALS: BP 184/80; PULSE 76; RESP 18; TEMP 36.6; O2SAT 96; BMI 29.4
--- NOTE | 2021-10-07 03:06 | EDS_ITS ---
HPI History of Present Illness Chief Complaint: Nausea/Vomiting/Diarrhea Informant: patient Narrative Narrative: Patient states she felt fine until she ate a vegetable wrap this evening. It did not sit well with her. She has then developed nausea vomiting and diarrhea over the last couple hours. Ever since she ate it last evening her stomach has been rumbling. She has no abdominal pain or flank pain. No urinary symptoms. No cough or trouble breathing. No myalgias. She is on prednisone but has been on this for over a month for some muscle pain and has not had any problems with it. She thinks this was the vegetable wrap that caused this. There is no blood in the stool or vomitus. Nothing makes her symptoms better or worse but there is been nothing to try at home. PFSH PFSH Home Medications ondansetron 4 mg PO Q8H PRN #10 tab 10/07/21 [Rx Last Taken Unknown] prednisone 10 mg PO DAILY 10/07/21 [History Last Taken Unknown] Allergy/AdvReac Type Severity Reaction Status Date / Time iodine Allergy Shortness Verified 10/07/21 02:20 of breath Kptuqjn-DAI-VrE Reductase Allergy Rash Verified 10/07/21 02:20 Inhibitor [Uvadqfz-Tdz-Bkd Reductase Inhibitor] fenofibrate [From Tricor] AdvReac Other Verified 10/07/21 02:20 ANTIBIOTICS Allergy Shortness Uncoded 10/07/21 02:20 of breath Social History Smoking Status: Never smoker ROS ROS ED Constitutional Constitutional ED: Denies chills or fever(s) Eyes Eyes: Denies blurry vision ENT ENT ED: Denies rhinorrhea or sore throat Cardiovascular Cardiovascular: Denies chest pain Respiratory/Chest Respiratory/Chest: Denies cough or dyspnea Gastrointestinal Gastrointestinal: Reports diarrhea, nausea and vomiting; Denies abdominal pain, constipation or melena Genitourinary Genitourinary ED: Denies dysuria, hematuria or urinary frequency Musculoskeletal Musculoskeletal: Denies back pain or myalgias Integumentary Denies rash Neurologic Neurologic: Denies headache(s) Endocrine Endocrinology: Denies polydipsia or polyuria Allergic/Immunologic Allergic/Immunologic ED: Denies urticaria EXAM Physical Exam Const Vital Signs: 10/07/21 02:14 10/07/21 04:12 Temperature 97.9 F Temperature Source Temporal Pulse Rate 76 85 Respiratory Rate 18 15 Blood Pressure 184/80 H 144/66 H Blood Pressure Mean 114 92 Pulse Ox 96 100 Oxygen Delivery Method Room Air Room Air Positive well nourished and well developed General Appearance ED: well developed and NAD; Negative for cyanotic HEENT Reports moist mucous membranes Eyes General Eye ED: Negative for pale conjunctiva or scleral icterus Chest Wall inspection of chest normal Resp normal respiratory effort and clear to auscultation bilaterally Cardio regular rate and regular rhythm GI normal to inspection, nondistended, normoactive bowel sounds, non-tender and non-distended Auscultation: hyperactive bowel sounds Palpation: soft Back/Spine no CVA tenderness Extremity normal to inspection Neuro oriented x3 Sensorium / Orientation: alert Psych mental status grossly normal Skin no rashes or lesions noted MDM MDM MDM Narrative Medical decision making narrative: Patient's blood work shows essentially normal electrolytes other than mild elevation in the BUN. She was given IV fluids here. Urine is clean. We had a very high white count at 19.2. Patient is really not having pain in the abdomen but she has some fullness. With his high white count her age and the symptoms we did scan her abdomen. It shows diverticulosis but no diverticulitis or other acute process. Patient is feeling much better now. She would like to go home. All her symptoms started with this vegetable wrap that she ate and she plans do not eat any more of it. I will write for some Zofran but hopefully she will not need it. We did discuss reasons to return. Lab Data Attestation: I reviewed the patient's lab results. Labs: Laboratory Results - last 24 hr 10/07/21 10/07/21 10/07/21 02:25 02:25 04:28 WBC 19.2 H RBC 3.93 L Hgb 14.4 Hct 40.0 MCV 101.8 H MCH 36.6 H MCHC 36.0 RDW Std Deviation 47.9 H RDW Coeff of Alex 16.1 H Plt Count 233 MPV 9.5 Immature Gran % (Auto) 1.100 H Neut % (Auto) 65.0 Lymph % (Auto) 26.9 [place] % (Auto) 6.0 Eos % (Auto) 0.6 Baso % (Auto) 0.4 Absolute Neuts (auto) 12.5 H Absolute Lymphs (auto) 5.18 H Nucleated RBC % 0 Anisocytosis 1+ Macrocytosis 1+ Sodium 140 Potassium 3.7 Chloride 106 Carbon Dioxide 28.0 Anion Gap 6 BUN 24 H Creatinine 0.76 Estim Creat Clear Calc 35.26 Est GFR (MDRD) Af Amer 93 Est GFR (MDRD) Non-Af 77 BUN/Creatinine Ratio 31.6 H Glucose 97 Calcium 9.2 Urine Color Yellow Urine Clarity Clear Urine pH 6.5 Ur Specific [place] 1.010 Urine Protein Negative Urine Glucose (UA) Normal Urine Ketones Negative Urine Occult Blood 50 H Urine Nitrite Negative Urine Bilirubin Negative Urine Urobilinogen Normal Ur Leukocyte Esterase Negative Urine RBC 0-5 SEEN Urine WBC 0 SEEN Ur Squamous Epith Cells 0 SEEN Urine Bacteria 1+ Urine Mucus 0 SEEN Radiography Diagnostic Testing: Clinical Impression(s) from Imaging Studies Abdomen/Pelvis CT 10/07/21 04:41 IMPRESSION: There is diverticulosis. Electronically Signed: Jeovany Dean MD at 5:56 EDT Reading Location ID and State: [facility] / [place] Tel , Service support , Discharge Plan Triage Chief Complaint: Nausea/Vomiting/Diarrhea ED Provider: Nick Cunha Dx/Rx/DC Orders Clinical Impression: Food poisoning, Nausea vomiting and diarrhea Instructions: ED Food Poison Or Gastroenteritis, ED Vomiting and Diarrhea ... Prescriptions: New ondansetron 4 mg tablet,disintegrating 4 mg PO Q8H PRN (Reason: nausea and vomiting) Qty: 10 RF: 0 No Action prednisone 10 mg Tablet 10 mg PO DAILY RF: 0 Primary Care Provider: Bennett Weir Referrals: Bennett Weir MD [Primary Care Provider] - 1-2 Days if not improving Disposition Disposition: Home, Self Care
[2021-10-07] MEDS: 0.9% Normal Saline 1,000 ML 1000 ML IV (03:23)
[2021-10-07] MEDS: Ondansetron 4 MG/2 ML Vial IV (03:23)
[2021-10-07 03:34] LABS: Absolute Lymphocyte Count 5.18 X10^3/uL (0.83-4.51); Absolute Neutrophil Count 12.5 X10^3/uL (2.0-7.7); Basophil# 0.07 X10^3/uL; Basophil% 0.4 % (0-1); Eosinophil# 0.11 X10^3/uL; Eosinophils% 0.6 % (0-5); Hemoglobin 14.4 g/dL (12.0-15.0); Lymphocyte # 5.18 X10^3/ul (0.83-4.51); Lymphocyte % 26.9 % (19-41); Mean Corpuscular Hgb 36.6 pg (27.0-32.0); Mean Corpuscular Volume 101.8 fL (81-99); Mean Platelet Vol. 9.5 fl (6.2-12.0); Monocyte# 1.15 X10^3/uL; NRBC Flagged by Analyzer 0 % (0-5); POSITIVE DIFFERENTIAL YES; Platelet Count 233 K/mm3 (150-450); RBC Distribution Width CV 16.1 % (11.6-14.6); RBC Distribution Width SD 47.9 fl (35.1-43.9); Red Blood Count 3.93 M/mm3 (4.2-5.4); White Blood Count 19.2 K/mm3 (4.4-11.0)
[2021-10-07 03:35] LABS: Differential Indicated SCAN CRITERIA MET
[2021-10-07 03:39] LABS: Anion Gap 6 (5-15); BUN 24 mg/dL (7-18); BUN/Creat Ratio 31.6 RATIO (10-20); Calcium,Total 9.2 mg/dL (8.5-10.1); Chloride 106 mmol/L (98-107); Creatinine, Serum 0.76 mg/dL (0.55-1.02); EST Glomerular Filtration Rate 77 mL/min (>60); Est Glom Filt Rate - Afr Amer 93 mL/min (>60); Estimated Creatinine Clearance 35.26 ml/min; Glucose 97 mg/dL (74-106); Potassium 3.7 mmol/L (3.5-5.1); Sodium Level 140 mmol/L (136-145)
[2021-10-07 04:12] VITALS: BP 144/66; PULSE 85; RESP 15; O2SAT 100
[2021-10-07 04:12] LABS: Anisocytosis 1+; Macrocytosis 1+
[2021-10-07 04:35] LABS: Mucous, Urine 0 SEEN /hpf (<or=2+); Squamous Epithelial Cells - UA 0 SEEN /hpf (5-10); White Blood Cells 0 SEEN /hpf (0-5)
[2021-10-07 04:36] LABS: Color, Urine Yellow (Yellow); Glucose, Dipstick Normal (Normal); Ketone-Dipstick Negative (Negative); Leukocyte Esterase-Dipstick Negative /ul (Negative); Nitrite-Dipstick Negative (Negative); Occult Blood-Urine 50 /ul (Negative); Protein-Dipstick Negative (Negative); Urine Bilirubin Dipstick Negative (Negative); Urine Clarity Clear (Clear); Urine Urobilinogen Normal (Normal); Urine pH 6.5 (5.0 - 8.0)
--- NOTE | 2021-10-07 04:41 | CT_ITS ---
STUDY: CT ABDOMEN AND PELVIS WITHOUT CONTRAST REASON FOR EXAM: Female, 81 years old. Nausea vomiting diarrhea pain RADIATION DOSAGE (If Supplied By Facility): CTDIvol = ( 9.55 ) mGy, DLP = ( 448.54 ) mGycm TECHNIQUE: Transaxial images were obtained from the dome of the diaphragm to the symphysis pubis without oral contrast, and without intravenous contrast. Sagittal and coronal images were reconstructed. Individualized dose optimization techniques were used for this CT. COMPARISON: None. FINDINGS: The visualized lung bases are unremarkable. The visualized portions of the heart are within normal limits. Normal liver. Normal gallbladder and extrahepatic biliary system. Normal spleen. Normal pancreas. Normal bilateral adrenal glands. Normal right kidney. Normal left kidney. Normal visualized stomach. Normal small intestine There is diverticulosis.. The appendix is visualized and appears normal. Normal abdominal aorta. Normal inferior vena cava. Normal retroperitoneum. Normal urinary bladder. Normal abdominal wall. Normal osseous structures. CT/Abdomen/Pelvis without Cont IMPRESSION: There is diverticulosis. Electronically Signed: Jeovany Dean MD at 5:56 EDT ,
[2021-10-07 04:45] LABS: Bacteria 1+ /hpf (None Seen); Red Blood Cells-Urine 0-5 SEEN /hpf (0-5)
[2021-10-07 06:13] VITALS: BP 144/66; PULSE 85; RESP 15; O2SAT 98
== END 2021-10-07 07:06 | disposition home or self-care (01) ==
PROVIDERS: Emergency Provider Emergency Medicine; PCP Internal Medicine; Visit Provider Emergency Medicine
DX: A05.9 Bacterial foodborne intoxication, unspecified (principal); K57.90 Diverticulosis of intestine, part unspecified, without perforation or abscess without bleeding
CPT/HCPCS: 74176; 80048; 81001; 85025; 96361; 96374; 99284; J7030; A4216; J2405

== ENCOUNTER 2021-10-10 08:49 | Emergency (ER) | payer MEDICARE, OTHER, SELFPAY ==
[2021-10-10 08:51] VITALS: BP 160/85; PULSE 85; RESP 18; TEMP 36.9; O2SAT 98; BMI 29.4
--- NOTE | 2021-10-10 09:09 | EKG12_ITS ---
Test Reason : PALP Blood Pressure : / mmHG Vent. Rate : 080 BPM Atrial Rate : 080 BPM P-R Int : 160 ms QRS Dur : 082 ms QT Int : 382 ms P-R-T Axes : 016 028 052 degrees QTc Int : 440 ms Normal sinus rhythm with sinus arrhythmia Normal ECG Confirmed by JASON BILLINGS, FARAZ ([id number]), clinical editor MILLI CASEY ([id number]) on 10/14/2021 9:49:22 AM Referred By: PALLAVI Confirmed By:MARKY GOMEZ MD
[2021-10-10 09:11] VITALS: BP 149/60; BP 170/75; BP 172/80; PULSE 87; PULSE 89
[2021-10-10 09:17] LABS: Absolute Neutrophil Count 5.8 X10^3/uL (2.0-7.7); Basophil# 0.07 X10^3/uL; Basophil% 0.6 % (0-1); Eosinophil# 0.11 X10^3/uL; Hematocrit 41.7 % (37-47); Hemoglobin 14.3 g/dL (12.0-15.0); Lymphocyte % 36.7 % (19-41); Mean Corp Hgb Conc 34.3 g/dL (32-36); Mean Corpuscular Hgb 34.2 pg (27.0-32.0); Mean Corpuscular Volume 99.8 fL (81-99); Mean Platelet Vol. 9.6 fl (6.2-12.0); Monocyte# 0.83 X10^3/uL; Monocyte% 7.6 % (0-10); NRBC Flagged by Analyzer 0 % (0-5); Neutrophil # 5.75 X10^3/uL (2.7-7.7); Neutrophil % 52.9 % (47-70); Platelet Count 222 K/mm3 (150-450); RBC Distribution Width CV 15.1 % (11.6-14.6); RBC Distribution Width SD 48.3 fl (35.1-43.9); Red Blood Count 4.18 M/mm3 (4.2-5.4); White Blood Count 10.9 K/mm3 (4.4-11.0)
--- NOTE | 2021-10-10 09:19 | EX.ED.DYSGE1 ---
HPI History of Present Illness Chief Complaint: Dizziness Narrative Narrative: 81-year-old female presenting with near syncopal episodes. She states she had a couple of these while trying to ambulate at home. She states she had not been sitting for a long time. She does have a history of lightheadedness. Patient recently seen a couple of days ago for food poisoning at which point she had an elevated white blood cell count. There was no source of infection found. Patient states has been doing well since home. She is been eating and drinking normally. She states he is making normal urine and stool. Patient states that she is not having chest pain but did feel as if her muscles are spasming in the right upper chest wall during these episodes. She does not feel short of breath. No fever or chills. No nausea or vomiting. She states that her heart did not feel like it was racing, but states that she felt like she was struggling during his nursing couple episodes. PFSH PFS Medical History Anxiety Carotid stenosis Fibromyalgia GERD (gastroesophageal reflux disease) Hyperlipidemia Hypertension Home Medications ondansetron 4 mg PO Q8H PRN #10 tab 10/07/21 [Rx Last Taken Unknown] prednisone 10 mg PO DAILY 10/07/21 [History Last Taken Unknown] Allergy/AdvReac Type Severity Reaction Status Date / Time iodine Allergy Shortness Verified 10/10/21 08:54 of breath Kgrppsu-BLF-DuP Reductase Allergy Rash Verified 10/10/21 08:54 Inhibitor [Dsruary-Ocp-Ewc Reductase Inhibitor] fenofibrate [From Tricor] AdvReac Other Verified 10/10/21 08:54 ANTIBIOTICS Allergy Shortness Uncoded 10/10/21 08:54 of breath Social History Smoking Status: Never smoker ROS ROS ED Eyes Eyes: Denies blurry vision or diplopia ENT ENT ED: Denies rhinorrhea or sore throat Cardiovascular Cardiovascular: Denies chest pain or palpitations Respiratory/Chest Respiratory/Chest: Denies cough or dyspnea Gastrointestinal Gastrointestinal: Denies abdominal pain, nausea or vomiting Genitourinary Genitourinary ED: Denies dysuria or hematuria Musculoskeletal Musculoskeletal: Reports other Details: Muscle spasm in right upper chest wall Integumentary Denies abscess or rash Neurologic Neurologic: Denies headache(s) or weakness Psychiatric Psychiatric: Denies anxiety or depression EXAM Physical Exam Const Vital Signs: 10/10/21 08:51 10/10/21 08:56 10/10/21 09:09 Temperature 98.4 F Temperature Source Temporal Pulse Rate 85 Pulse Rate [Lying] Pulse Rate [Sitting (for 1 minute prior to obtaining)] Pulse Rate [Standing (for 1 minute prior to obtaining)] Respiratory Rate 18 Respiratory Effort Normal Blood Pressure 160/85 H Blood Pressure [Lying] Blood Pressure [Sitting (for 1 minute prior to obtaining)] Blood Pressure [Standing (for 1 minute prior to obtaining)] Blood Pressure Mean 110 Blood Pressure Mean [Lying] Blood Pressure Mean [Sitting (for 1 minute prior to obtaining)] Blood Pressure Mean [Standing (for 1 minute prior to obtaining)] Pulse Ox 98 Oxygen Delivery Method Room Air Room Air 10/10/21 09:11 Temperature Temperature Source Pulse Rate Pulse Rate [Lying] 87 Pulse Rate [Sitting (for 1 minute prior to obtaining)] 89 Pulse Rate [Standing (for 1 minute prior to obtaining)] 87 Respiratory Rate Respiratory Effort Blood Pressure Blood Pressure [Lying] 149/60 H Blood Pressure [Sitting (for 1 minute prior to obtaining)] 172/80 H Blood Pressure [Standing (for 1 minute prior to obtaining)] 170/75 H Blood Pressure Mean Blood Pressure Mean [Lying] 89 Blood Pressure Mean [Sitting (for 1 minute prior to obtaining)] 110 Blood Pressure Mean [Standing (for 1 minute prior to obtaining)] 106 Pulse Ox Oxygen Delivery Method Positive well nourished General Appearance ED: NAD; Negative for pallor HEENT Reports moist mucous membranes Negative for trauma Eyes PERRL and EOMs intact bilaterally Resp normal respiratory effort and clear to auscultation bilaterally Cardio regular rate and regular rhythm GI normal to inspection, nondistended, normoactive bowel sounds Extremity normal to inspection General Extremety ED: Negative for edema or tenderness General Extremity: Negative for edema Neuro oriented x3 and CN's II-XII intact bilaterally Sensorium / Orientation: alert Motor Exam: strength 5/5 throughout Psych mental status grossly normal Skin no rashes or lesions noted and no wounds General Skin Exam: Negative for jaundice or pallor MDM MDM MDM Narrative Medical decision making narrative: Patient presenting with near syncopal episode. Her EKG on my interpretation shows normal sinus rhythm with a ventricular rate of 80 bpm without sign of ischemic change. Orthostatic vital signs are normal. CBC shows that her white blood cell count is improved to 10.9. Hemoglobin stable at 14.3. Platelets 222. Urinalysis again negative for infection. Renal function electrolytes within normal limits. Chest x-ray on my interpretation shows no acute cardiopulmonary process and the radiologist does agree. High-sensitivity troponin is 8. I feel at this point the patient is stable for discharge home. I do not believe she needs further testing. She has been asymptomatic in the ER. Impression: 1. Lightheadedness?resolved 2. Leukocytosis?resolved Lab Data Attestation: I reviewed the patient's lab results. Labs: Laboratory Results - last 24 hr 10/10/21 10/10/21 10/10/21 08:35 08:35 09:22 WBC 10.9 RBC 4.18 L Hgb 14.3 Hct 41.7 MCV 99.8 H MCH 34.2 H MCHC 34.3 RDW Std Deviation 48.3 H RDW Coeff of Alex 15.1 H Plt Count 222 MPV 9.6 Immature Gran % (Auto) 1.200 H Neut % (Auto) 52.9 Lymph % (Auto) 36.7 [place] % (Auto) 7.6 Eos % (Auto) 1.0 Baso % (Auto) 0.6 Absolute Neuts (auto) 5.8 Absolute Lymphs (auto) 4.00 Nucleated RBC % 0 Sodium Cancelled Potassium Cancelled Chloride Cancelled Carbon Dioxide Cancelled Anion Gap Cancelled BUN Cancelled Creatinine Cancelled Estim Creat Clear Calc Cancelled Est GFR (MDRD) Af Amer Cancelled Est GFR (MDRD) Non-Af Cancelled BUN/Creatinine Ratio Cancelled Glucose Cancelled Calcium Cancelled Troponin I High Sens Cancelled Urine Color Straw Urine Clarity Clear Urine pH 7.0 Ur Specific [place] 1.005 Urine Protein Negative Urine Glucose (UA) Normal Urine Ketones Negative Urine Occult Blood 50 H Urine Nitrite Negative Urine Bilirubin Negative Urine Urobilinogen Normal Ur Leukocyte Esterase Negative Urine RBC 0-5 SEEN Urine WBC 0 SEEN Ur Squamous Epith Cells 0-5 SEEN Urine Bacteria 0 SEEN Urine Mucus 0 SEEN 10/10/21 09:25 WBC RBC Hgb Hct MCV MCH MCHC RDW Std Deviation RDW Coeff of Alex Plt Count MPV Immature Gran % (Auto) Neut % (Auto) Lymph % (Auto) [place] % (Auto) Eos % (Auto) Baso % (Auto) Absolute Neuts (auto) Absolute Lymphs (auto) Nucleated RBC % Sodium 141 Potassium 3.7 Chloride 107 Carbon Dioxide 29.0 Anion Gap 5 BUN 18 Creatinine 0.73 Estim Creat Clear Calc 35.26 Est GFR (MDRD) Af Amer 97 Est GFR (MDRD) Non-Af 81 BUN/Creatinine Ratio 24.6 H Glucose 103 Calcium 9.3 Troponin I High Sens 8 Urine Color Urine Clarity Urine pH Ur Specific [place] Urine Protein Urine Glucose (UA) Urine Ketones Urine Occult Blood Urine Nitrite Urine Bilirubin Urine Urobilinogen Ur Leukocyte Esterase Urine RBC Urine WBC Ur Squamous Epith Cells Urine Bacteria Urine Mucus Radiography Diagnostic Testing: Clinical Impression(s) from Imaging Studies Chest X-Ray 10/10/21 09:22 IMPRESSION: No acute abnormality is seen. Electronically Signed: Rubio Carrera MD at 9:49 EDT Reading Location ID and State: [address] [place] [address] , Service support , Discharge Plan Triage Chief Complaint: Dizziness ED Provider: Hugo Serrano Dx/Rx/DC Orders Prescriptions: No Action prednisone 10 mg Tablet 10 mg PO DAILY RF: 0 ondansetron 4 mg tablet,disintegrating 4 mg PO Q8H PRN (Reason: nausea and vomiting) Qty: 10 RF: 0 Primary Care Provider: Bennett Weir
--- NOTE | 2021-10-10 09:22 | RAD_ITS ---
STUDY: X-RAY CHEST REASON FOR EXAM: Female, 81 years old. Chest pain TECHNIQUE: Single AP portable view of the chest. COMPARISON: Comparison is made with prior study of 07/17/2020. FINDINGS: EKG electrodes are seen. The lungs are clear and expanded. Stable calcified granulomas. There is no demonstrated pleural abnormality. Normal size heart. Normal mediastinum and anton. Normal visualized pulmonary arteries. There is atherosclerotic calcification of the aortic arch with tortuosity. There are diffuse degenerative changes of the visualized thoracic spine. Normal visualized ribs, clavicles, and shoulders. There is no demonstrated abnormality of the visualized soft tissue structures of the upper abdomen. RAD/Chest 1 View (Portable) IMPRESSION: No acute abnormality is seen. Electronically Signed: Rubio Carrera MD at 9:49 EDT ,
[2021-10-10 09:27] LABS: Bacteria 0 SEEN /hpf (None Seen); Mucous, Urine 0 SEEN /hpf (<or=2+); White Blood Cells 0 SEEN /hpf (0-5)
[2021-10-10 09:32] LABS: Color, Urine Straw (Yellow); Glucose, Dipstick Normal (Normal); Ketone-Dipstick Negative (Negative); Leukocyte Esterase-Dipstick Negative /ul (Negative); Nitrite-Dipstick Negative (Negative); Occult Blood-Urine 50 /ul (Negative); Protein-Dipstick Negative (Negative); Specific Gravity, Urine 1.005 (1.002-1.030); Urine Bilirubin Dipstick Negative (Negative); Urine Clarity Clear (Clear); Urine Urobilinogen Normal (Normal)
[2021-10-10 09:41] LABS: Red Blood Cells-Urine 0-5 SEEN /hpf (0-5); Squamous Epithelial Cells - UA 0-5 SEEN /hpf (5-10)
[2021-10-10 09:48] LABS: Anion Gap 5 (5-15); BUN 18 mg/dL (7-18); BUN/Creat Ratio 24.6 RATIO (10-20); Calcium,Total 9.3 mg/dL (8.5-10.1); Chloride 107 mmol/L (98-107); Creatinine, Serum 0.73 mg/dL (0.55-1.02); EST Glomerular Filtration Rate 81 mL/min (>60); Est Glom Filt Rate - Afr Amer 97 mL/min (>60); Estimated Creatinine Clearance 35.26 ml/min; Glucose 103 mg/dL (74-106); Potassium 3.7 mmol/L (3.5-5.1); Sodium Level 141 mmol/L (136-145); Troponin-I HS (w/2H Reflex) 8 pg/mL (3.0-54.0)
[2021-10-10 11:11] VITALS: BP 148/67; PULSE 76; RESP 15; O2SAT 97
[2021-10-10 11:28] LABS: Reflex Troponin-HS? (from REC) Y
== END 2021-10-10 11:16 | disposition home or self-care (01) ==
PROVIDERS: Emergency Provider Student in an Organized Health Care Education/Training Program; PCP Internal Medicine; Visit Provider Student in an Organized Health Care Education/Training Program
DX: R42 Dizziness and giddiness (principal); K21.9 Gastro-esophageal reflux disease without esophagitis; M79.7 Fibromyalgia; Z79.52 Long term (current) use of systemic steroids
CPT/HCPCS: 71045; 80048; 81001; 84484; 85025; 93005; 99285; A4216

== ENCOUNTER 2022-02-12 09:04 | Emergency (ER) | payer MEDICARE, OTHER, SELFPAY ==
[2022-02-12 09:07] VITALS: BP 148/62; PULSE 91; RESP 20; TEMP 36.6; O2SAT 97; BMI 30.3
--- NOTE | 2022-02-12 09:23 | EDS_ITS ---
HPI History of Present Illness Chief Complaint: Palpitations Detail of Chief Complaint: No chest pain Informant: patient Onset/Context/Timing Onset: Today and Hours Activity at onset: sudden and gradual Timing: Intermittent Location: Substernal Current Severity: Gone Maximum Severity: Mild Worsened By: Nothing Relieved By: Nothing Associated Symptoms: Positive for Lightheadedness and Palpitations; Negative for Nausea, Vomiting, Diaphoresis, Dyspnea, Cough, Fever or Acid Reflux Narrative Narrative: 81-year-old female history of hypertension and prior TIAs. No cardiac history. Denies any history of prior ND or cardiac catheterization or heart surgery. States that around 6:00 this morning for about an hour or so she had palpitations. Folic her heart might be going fast or skipping beats. Said she felt lightheaded and dizzy. Did not pass out. Had no chest pain. No shortness of breath. No nausea. She has had no history of A. fib. She does have a thyroid nodule which they are watching but is not on any thyroid medication. Denies any recent exertional dyspnea. Prior Similar Symptoms: No Recent Illness/Hospitalization: No CVD Risk Factors: Positive for Hypertension; Negative for Diabetes, Hypercholesterolemia or Smoking PE Risk Factors: Negative for Recent Travel/Surgery, Recent Immobilization, Prior DVT or PE, Cancer or OCP + Smoking + >/=35 TAD Risk Factors: Negative for Marfan's Syndrome PFSH [facility] Medical History Anxiety Carotid stenosis Fibromyalgia GERD (gastroesophageal reflux disease) Hyperlipidemia Hypertension Home Medications ondansetron 4 mg disintegrating tablet 4 mg PO Q8H PRN nausea and vomiting #10 tabs 10/07/21 [Rx Last Taken Unknown] prednisone 10 mg tablet 10 mg PO DAILY 10/07/21 [History Last Taken Unknown] Allergy/AdvReac Type Severity Reaction Status Date / Time iodine Allergy Shortness Verified 02/12/22 09:07 of breath Ubggxbr-OMA-CmY Reductase Allergy Rash Verified 02/12/22 09:07 Inhibitor [Nldaodv-Plz-Iol Reductase Inhibitor] fenofibrate [From Tricor] AdvReac Other Verified 02/12/22 09:07 ANTIBIOTICS Allergy Shortness Uncoded 02/12/22 09:07 of breath Social History Smoking Status: Never smoker ROS ROS ED ROS Narrative Palpitations. No recent illness. Review of Systems ROS Unobtainable: Denies due to encephalopathy Constitutional Constitutional ED: Denies chills or fever(s) Eyes Eyes: Reports none ENT ENT ED: Denies ear pain Cardiovascular Cardiovascular: Reports as per HPI and palpitations; Denies chest pain Respiratory/Chest Respiratory/Chest: Denies cough or dyspnea Gastrointestinal Gastrointestinal: Denies abdominal pain Genitourinary Genitourinary ED: Denies dysuria or hematuria Musculoskeletal Musculoskeletal: Denies arthralgias or back pain Integumentary Denies abscess Neurologic Neurologic: Denies headache(s) Psychiatric Psychiatric: Denies anxiety Endocrine Endocrinology: Denies cold intolerance Hematologic/Lymphatic Hematologic/Lymphatic: Denies easy bleeding Allergic/Immunologic Allergic/Immunologic ED: Denies mouth swelling EXAM Physical Exam Narrative Exam Narrative: Well-appearing 81-year-old female vital signs stable afebrile. Pulse ox 97% on room air no signs hypoxia. H EENT exam unremarkable. Neck nontender. Lungs clear to auscultation. Heart regular rhythm rate about 90 no murmur. Chest were nontender. Abdomen soft nontender. Moving all 4 extremities. Calves are nontender without edema or cords. Neurologically she is awake and alert. Benign exam. Currently she is symptom-free. Const Vital Signs: 02/12/22 09:07 02/12/22 09:10 Temperature 97.9 F Temperature Source Oral Pulse Rate 91 Respiratory Rate 20 H Blood Pressure 148/62 H Blood Pressure Mean 90 Pulse Ox 97 Oxygen Delivery Method Room Air Room Air Positive well nourished and well developed; Negative for cachectic, contractures or unkempt General Appearance ED: well developed and NAD; Negative for unkempt, cachectic, contractures or pallor Nutritional Appearance: Negative for cachectic HEENT Reports moist mucous membranes normocephalic and atraumatic; Negative for trauma or tenderness Eyes PERRL and EOMs intact bilaterally General Eye ED: Negative for pale conjunctiva or scleral icterus Neck no lymphadenopathy, supple and no JVD General: Negative for tenderness Chest Wall inspection of chest normal and palpation of chest normal Chest: Negative for tenderness Resp normal respiratory effort and clear to auscultation bilaterally Effort and Inspection: Negative for respiratory distress Auscultation: Negative for rales, rhonchi or wheezes Cardio regular rate, regular rhythm, S1 normal heart sound, S2 normal heart sound and no murmurs Rate: Negative for bradycardia Rhythm: Negative for abnormal rhythm GI normal to inspection, nondistended, normoactive bowel sounds, soft to palpation, non-tender, non-distended and no masses; Negative for hepatosplenomegaly Auscultation: Negative for hyperactive bowel sounds Palpation: Negative for splenomegaly, mass or other Back/Spine no CVA tenderness and no thoracic nor lumbar tenderness General Back: Negative for CVA tenderness Extremity normal to inspection General Extremety ED: Negative for edema, pulses abnormal or tenderness General Extremity: Negative for edema or pulses abnormal Neuro oriented x3 Sensorium / Orientation: awake, alert, oriented to person, oriented to place and oriented to time; Negative for confused or lethargic Motor Exam: strength 5/5 throughout Psych mental status grossly normal Appearance: Negative for unkempt Attitude: No agitated Mood & Affect: Negative for depressed, anxious or tearful Skin no rashes or lesions noted and no wounds General Skin Exam: Negative for jaundice or pallor Rashes: No rashes noted Trauma: Negative for abrasion MDM MDM MDM Narrative Medical decision making narrative: Patient with palpitations this morning that resolved. Cardiac work-up and thyroid test to be obtained. Currently her exam is normal. This may be secondary to a an acute transient dysrhythmia that resolved. Currently she is in a sinus rhythm. Repeat exam patient doing well at 1020. Heart rate is normal. She and I went over test. She will be discharged home. Lab Data Attestation: I reviewed the patient's lab results. Lab results narrative: CBC normal. White count 9. H&H 14 and 43. Is normal gap is 6 BUN and creatinine 19 and 0.7. Troponin 8 TSH normal at 0.79. Chest x-ray unremarkable. Labs: Laboratory Results - last 24 hr 02/12/22 02/12/22 09:10 09:10 WBC 9.6 RBC 4.46 Hgb 14.2 Hct 43.1 MCV 96.6 MCH 31.8 MCHC 32.9 RDW Std Deviation 47.3 H RDW Coeff of Alex 13.3 Plt Count 213 MPV 9.7 Immature Gran % (Auto) 1.600 H Neut % (Auto) 65.7 Lymph % (Auto) 25.6 [place] % (Auto) 5.7 Eos % (Auto) 1.0 Baso % (Auto) 0.4 Absolute Neuts (auto) 6.3 Absolute Lymphs (auto) 2.45 Nucleated RBC % 0 Sodium 141 Potassium 3.8 Chloride 107 Carbon Dioxide 28.0 Anion Gap 6 BUN 19 H Creatinine 0.79 Estim Creat Clear Calc 33.71 Est GFR (MDRD) Af Amer 89 Est GFR (MDRD) Non-Af 74 BUN/Creatinine Ratio 24.0 H Glucose 136 H Calcium 9.4 Troponin I High Sens 8 TSH 0.79 Radiography Chest X-Ray - ED: 1 View, Read by ED Physician, Normal, Heart, Lungs, Mediastinum, Bony Structures, No Acute Disease and Chronic Changes Diagnostic Testing: Clinical Impression(s) from Imaging Studies Chest X-Ray 02/12/22 09:30 IMPRESSION: Normal x-ray examination of the chest. Electronically Signed: Mark Azevedo MD at 9:39 EDT Reading Location ID and State: [address] [place] [address] Tel , Service support , Chest x-ray, portable, single view interpreted by myself and radiologist shows no acute process chronic changes. Normal cardiac silhouette. Rhythm Strip Rhythm Strip: Sinus Rhythm Rate: 91 Ectopy: None EKG Initial EKG: Attestation: I personally reviewed and interpreted this EKG as follows: Interpretation: Sinus Rhythm and No Acute Injury Pattern Comments: Normal sinus rhythm rate at 91. No acute signs of ND or ischemia. Discharge Plan Triage Chief Complaint: Palpitations ED Provider: Rajan Hubbard Dx/Rx/DC Orders Clinical Impression: Palpitation, History of hypertension, History of recurrent TIAs Instructions: ED Palpitations Prescriptions: No Action prednisone 10 mg Tablet 10 mg PO DAILY ondansetron 4 mg tablet,disintegrating 4 mg PO Q8H PRN (Reason: nausea and vomiting) Qty: 10 0RF Primary Care Provider: Bennett Weir Referrals: Bennett Weir MD [Primary Care Provider] - 1 Week Activity Restrictions/Additional Instructions: Your test, labs, x-ray and EKG today are unremarkable. Follow-up with your doctor if need be they can put you on a monitoring tech. Disposition Disposition: Home, Self Care
--- NOTE | 2022-02-12 09:30 | RAD_ITS ---
STUDY: X-RAY CHEST REASON FOR EXAM: Female, 81 years old. chest pain TECHNIQUE: Single AP portable view of the chest. COMPARISON: 10/10/2021 FINDINGS: The lungs are clear and expanded. There is no demonstrated pleural abnormality. Normal size heart. Normal mediastinum and anton. Normal visualized pulmonary arteries. Normal visualized aortic arch and descending thoracic aorta. Normal visualized thoracic spine. Normal visualized ribs, clavicles, and shoulders. There is no demonstrated abnormality of the visualized soft tissue structures of the upper abdomen. RAD/Chest 1 View (Portable) IMPRESSION: Normal x-ray examination of the chest. Electronically Signed: Mark Azevedo MD at 9:39 EDT ,
[2022-02-12 09:31] LABS: Absolute Lymphocyte Count 2.45 X10^3/uL (0.83-4.51); Absolute Neutrophil Count 6.3 X10^3/uL (2.0-7.7); Basophil# 0.04 X10^3/uL; Basophil% 0.4 % (0-1); Hematocrit 43.1 % (37-47); Hemoglobin 14.2 g/dL (12.0-15.0); Lymphocyte # 2.45 X10^3/ul (0.83-4.51); Lymphocyte % 25.6 % (19-41); Mean Corp Hgb Conc 32.9 g/dL (32-36); Mean Corpuscular Hgb 31.8 pg (27.0-32.0); Mean Corpuscular Volume 96.6 fL (81-99); Mean Platelet Vol. 9.7 fl (6.2-12.0); Monocyte# 0.55 X10^3/uL; Monocyte% 5.7 % (0-10); NRBC Flagged by Analyzer 0 % (0-5); Neutrophil # 6.29 X10^3/uL (2.7-7.7); Neutrophil % 65.7 % (47-70); Platelet Count 213 K/mm3 (150-450); RBC Distribution Width CV 13.3 % (11.6-14.6); RBC Distribution Width SD 47.3 fl (35.1-43.9); Red Blood Count 4.46 M/mm3 (4.2-5.4); White Blood Count 9.6 K/mm3 (4.4-11.0)
[2022-02-12 09:56] LABS: Anion Gap 6 (5-15); BUN 19 mg/dL (7-18); Calcium,Total 9.4 mg/dL (8.5-10.1); Chloride 107 mmol/L (98-107); Creatinine, Serum 0.79 mg/dL (0.55-1.02); EST Glomerular Filtration Rate 74 mL/min (>60); Est Glom Filt Rate - Afr Amer 89 mL/min (>60); Estimated Creatinine Clearance 33.71 ml/min; Glucose 136 mg/dL (74-106); Potassium 3.8 mmol/L (3.5-5.1); Sodium Level 141 mmol/L (136-145); Thyroid Stim Hormone (TSH) 0.79 uIU/mL (0.358-3.74); Troponin-I HS (w/2H Reflex) 8 pg/mL (3.0-54.0)
[2022-02-12 10:33] VITALS: BP 149/64; PULSE 86; RESP 18; O2SAT 94
[2022-02-12 11:26] LABS: Reflex Troponin-HS? (from REC) Y
== END 2022-02-12 10:33 | disposition home or self-care (01) ==
PROVIDERS: Emergency Provider Emergency Medicine; PCP Internal Medicine; Visit Provider Emergency Medicine
DX: R00.2 Palpitations (principal); I10 Essential (primary) hypertension; Z86.73 Personal history of transient ischemic attack (TIA), and cerebral infarction without residual deficits; E04.1 Nontoxic single thyroid nodule; M79.7 Fibromyalgia; K21.9 Gastro-esophageal reflux disease without esophagitis; Z79.52 Long term (current) use of systemic steroids
CPT/HCPCS: 71045; 80048; 84443; 84484; 85025; 93005; 99285; A4216

== ENCOUNTER 2022-08-04 16:49 | Emergency (ER) | payer MEDICARE, OTHER, SELFPAY ==
[2022-08-04 16:50] VITALS: BP 163/74; PULSE 89; RESP 14; TEMP 36.3; O2SAT 98; BMI 28.1
--- NOTE | 2022-08-04 17:05 | ED.RN ---
pt reports pretzels stuck in her throat. vomited and now feels lie there just in back. managing airway ans siliva. pt reports hx of this frequently usually vomits and it comes up.
--- NOTE | 2022-08-04 17:58 | ED.RN ---
pt feels throat is cleared. given sode for po challenge
[2022-08-04 18:36] VITALS: BP 148/89; PULSE 87; RESP 16; O2SAT 98
--- NOTE | 2022-08-04 18:41 | ED.VIS.GI ---
HPI HPI - GI History of Present Illness Chief Complaint: Foreign Body Informant: patient Narrative Narrative: Patient states she ate some very dry pretzels this evening and she felt as though They got stuck in her esophagus. She has had this problem intermittently in the past but has been about 3 years. She is not having pain. She tried to drink some fluids but it would not go down and that is why she came in. This happened just over an hour ago. She now feels that it might have moved and is better. No trouble breathing. No other complaints. She is currently on no medications. PFSH PFS Medical History Anxiety Carotid stenosis Fibromyalgia GERD (gastroesophageal reflux disease) Hyperlipidemia Hypertension Home Medications ondansetron 4 mg disintegrating tablet 4 mg PO Q8H PRN nausea and vomiting #10 tabs 10/07/21 [Rx Last Taken Unknown] prednisone 10 mg tablet 10 mg PO DAILY 10/07/21 [History Last Taken Unknown] esomeprazole magnesium 20 mg capsule,delayed release (Nexium) 20 mg PO DAILY #20 caps 08/04/22 [Rx Last Taken Unknown] Allergy/AdvReac Type Severity Reaction Status Date / Time iodine Allergy Shortness Verified 08/04/22 16:52 of breath Rfmbfeb-JLS-NlR Reductase Allergy Rash Verified 08/04/22 16:52 Inhibitor [Ulwtzqu-Eih-Anp Reductase Inhibitor] fenofibrate [From Tricor] AdvReac Other Verified 08/04/22 16:52 ANTIBIOTICS Allergy Shortness Uncoded 08/04/22 16:52 of breath Social History Smoking Status: Never smoker ROS ROS ED Constitutional Constitutional ED: Denies chills or fever(s) ENT ENT ED: Reports other Details: See history of present illness ; Denies rhinorrhea or sore throat Cardiovascular Cardiovascular: Denies chest pain or palpitations Respiratory/Chest Respiratory/Chest: Denies cough or dyspnea Gastrointestinal Gastrointestinal: Denies abdominal pain, nausea or vomiting Musculoskeletal Musculoskeletal: Denies back pain, myalgias or neck pain Integumentary Denies rash Hematologic/Lymphatic Hematologic/Lymphatic: Denies easy bleeding or easy bruising EXAM Physical Exam Narrative Exam Narrative: Patient awake alert no acute distress sitting comfortably on bed. HEENT shows no swelling trauma. Oropharynx is normal. Voice is normal. No trouble breathing or handling secretions. Neck shows no JVD or tenderness. No stridor. Lungs are clear bilaterally. Breath sounds are equal bilaterally. No pain with a deep breath. Saturations are normal at 98% on room air showing no hypoxia. Heart is regular. No murmur gallop or rub. Abdomen is soft and completely nontender Const Vital Signs: 08/04/22 16:50 08/04/22 18:36 Temperature 97.4 F L Temperature Source Temporal Pulse Rate 89 87 Respiratory Rate 14 16 Blood Pressure 163/74 H 148/89 H Blood Pressure Mean 103 108 Pulse Ox 98 98 Oxygen Delivery Method Room Air Room Air MDM MDM MDM Narrative Medical decision making narrative: Patient was given some warm Coke. This was able to go down. She had several sips. Is had no trouble passing. We let her rest. It has not come back up. I think this is passed. I discussed starting her on some Nexium. I think she should follow-up with GI as she has had this problem before. She has never had dilation. Discharge Plan Triage Chief Complaint: Foreign Body ED Provider: Nick Cunha Dx/Rx/DC Orders Clinical Impression: Acute obstruction of esophagus Instructions: ED Esophageal Foreign Body, Resolved Prescriptions: New esomeprazole magnesium [Nexium] 20 mg capsule,delayed release(DR/EC) 20 mg PO DAILY Qty: 20 0RF No Action prednisone 10 mg Tablet 10 mg PO DAILY ondansetron 4 mg tablet,disintegrating 4 mg PO Q8H PRN (Reason: nausea and vomiting) Qty: 10 0RF Primary Care Provider: Bennett Weir Referrals: Bennett Weir MD [Primary Care Provider] - 1 Week Disposition Disposition: Home, Self Care
[2022-08-04 18:53] VITALS: BP 133/79; PULSE 61; RESP 15; O2SAT 96
== END 2022-08-04 18:54 | disposition home or self-care (01) ==
PROVIDERS: Emergency Provider Emergency Medicine; PCP Internal Medicine; Visit Provider Emergency Medicine
DX: K22.2 Esophageal obstruction (principal); T18.128A Food in esophagus causing other injury, initial encounter; I10 Essential (primary) hypertension; E78.5 Hyperlipidemia, unspecified; K21.9 Gastro-esophageal reflux disease without esophagitis
CPT/HCPCS: 99284

== ENCOUNTER 2022-11-21 22:56 | Emergency (ER) | payer MEDICARE, OTHER, SELFPAY ==
[2022-11-21 22:57] VITALS: BP 175/70; PULSE 87; RESP 16; TEMP 36.8; O2SAT 96; BMI 29.5
--- NOTE | 2022-11-21 23:25 | CT_ITS ---
INDICATION: altered mental EXAMINATION: CT BRAIN - CT Head or Brain W/O Contrast Injection TECHNIQUE: Multiple axial images were obtained of the head without intravenous contrast. A radiation dose optimization technique was used for this scan. IV Contrast dosage and agent: None. RADIATION DOSAGE (If Supplied By Facility): CTDIvol = ( 44.99 ) mGy, DLP = ( 796.11 ) mGycm COMPARISON: CT head 11/22/2020. FINDINGS: BRAIN: No acute bleed. No edema. Decreased attenuation in the periventricular white matter bilaterally. [place]-white matter differentiation is maintained. Arterial calcifications. VENTRICLES AND SULCI: Not dilated. EXTRA-AXIAL: No hemorrhage, fluid collection, or mass. CALVARIUM / SKULL BASE: Unremarkable. FACE/SINUSES: Unremarkable. SOFT TISSUES: Unremarkable. CT/Brain/Head without Contrast IMPRESSION: No acute findings. Chronic microvascular ischemic disease. CT angiogram or MRI may be helpful to evaluate for acute infarct if clinically indicated. Electronically Signed: Mireya Lei MD at 0:25 EDT ,
[2022-11-21 23:43] LABS: Bacteria 0 SEEN /hpf (None Seen); Mucous, Urine 0 SEEN /hpf (<or=2+); Red Blood Cells-Urine 0 SEEN /hpf (0-5); Squamous Epithelial Cells - UA 0 SEEN /hpf (5-10); White Blood Cells 0 SEEN /hpf (0-5)
[2022-11-21 23:47] LABS: Absolute Lymphocyte Count 3.76 X10^3/uL (0.83-4.51); Absolute Neutrophil Count 4.6 X10^3/uL (2.0-7.7); Basophil# 0.06 X10^3/uL; Basophil% 0.6 % (0-1); Eosinophil# 0.16 X10^3/uL; Eosinophils% 1.7 % (0-5); Hematocrit 42.9 % (37-47); Hemoglobin 14.2 g/dL (12.0-15.0); Lymphocyte # 3.76 X10^3/ul (0.83-4.51); Lymphocyte % 40.1 % (19-41); Mean Corp Hgb Conc 33.1 g/dL (32-36); Mean Corpuscular Hgb 32.3 pg (27.0-32.0); Mean Corpuscular Volume 97.7 fL (81-99); Mean Platelet Vol. 9.5 fl (6.2-12.0); Monocyte% 7.5 % (0-10); NRBC Flagged by Analyzer 0 % (0-5); Neutrophil # 4.63 X10^3/uL (2.7-7.7); Neutrophil % 49.4 % (47-70); Platelet Count 210 K/mm3 (150-450); RBC Distribution Width CV 13.4 % (11.6-14.6); RBC Distribution Width SD 47.3 fl (35.1-43.9); Red Blood Count 4.39 M/mm3 (4.2-5.4); White Blood Count 9.4 K/mm3 (4.4-11.0)
[2022-11-21 23:54] LABS: Color, Urine Yellow (Yellow); Glucose, Dipstick Normal (Normal); Ketone-Dipstick Negative (Negative); Leukocyte Esterase-Dipstick Negative /ul (Negative); Nitrite-Dipstick Negative (Negative); Occult Blood-Urine 50 /ul (Negative); Protein-Dipstick Negative (Negative); Urine Bilirubin Dipstick Negative (Negative); Urine Clarity Clear (Clear); Urine Urobilinogen Normal (Normal)
[2022-11-22 00:07] LABS: Ammonia < 10.0 umol/L (11-32)
[2022-11-22 00:10] LABS: AST(SGOT) 11 U/L (15-37); Alanine Aminotransfer ALT/SGPT 20 U/L (13-56); Albumin, Serum 3.6 g/dL (3.2-5.0); Alkaline Phosphatase 73 U/L (45-117); Anion Gap 6 (5-15); BUN 19 mg/dL (7-18); BUN/Creat Ratio 23.7 RATIO (10-20); Bilirubin, Direct 0.09 mg/dL (0.00-0.30); Calcium,Total 9.3 mg/dL (8.5-10.1); Chloride 108 mmol/L (98-107); EST Glomerular Filtration Rate 72 mL/min (>60); Est Glom Filt Rate - Afr Amer 88 mL/min (>60); Globulin 3.2 g/dL (2.2-4.2); Glucose 103 mg/dL (74-106); Potassium 4.1 mmol/L (3.5-5.1); Protein, Total 6.8 g/dL (6.4-8.2); Sodium Level 140 mmol/L (136-145)
--- NOTE | 2022-11-22 00:37 | EX.ED.DYSGE1 ---
HPI History of Present Illness Chief Complaint: Confusion Informant: patient Narrative Narrative: Patient is an 82-year-old female who lives at home and states that she takes no medications. She states for the last 3 to 4 days she has been feeling off she states that she saw her family doctor today but it was secondary to a normal routine visit and she did not bring up the sensation of feeling off. She states this evening she went to answer the phone but could not remember how to do so for a few seconds which concerned her and secondary to this she comes in for evaluation [facility] Medical History (Updated 11/22/22 @ 05:[address] Nick Murphy DO) Anxiety Carotid stenosis Fibromyalgia GERD (gastroesophageal reflux disease) Hyperlipidemia Hypertension Home Medications ondansetron 4 mg disintegrating tablet 4 mg PO Q8H PRN nausea and vomiting #10 tabs 10/07/21 [Rx Last Taken Unknown] prednisone 10 mg tablet 10 mg PO DAILY 10/07/21 [History Last Taken Unknown] esomeprazole magnesium 20 mg capsule,delayed release (Nexium) 20 mg PO DAILY #20 caps 08/04/22 [Rx Last Taken Unknown] Allergy/AdvReac Type Severity Reaction Status Date / Time iodine Allergy Shortness Verified 08/04/22 16:52 of breath Yeydvum-VCH-LuM Reductase Allergy Rash Verified 08/04/22 16:52 Inhibitor [Thupoku-Mds-Uph Reductase Inhibitor] fenofibrate [From Tricor] AdvReac Other Verified 08/04/22 16:52 ANTIBIOTICS Allergy Shortness Uncoded 08/04/22 16:52 of breath Family History (Updated 11/21/22 @ 23:[address] Vandana Bates MD) Mother Heart disease Father Heart disease Surgical History (Updated 11/21/22 @ 23:[address] Vandana Bates MD) S/P partial resection of colon Social History (Updated 11/21/22 @ 23:[address] Vandana Bates MD) household members: none Smoking Status: Never smoker alcohol intake: never substance use type: does not use ROS ROS ED Constitutional Constitutional ED: Denies chills or fever(s) Eyes Eyes: Denies change in vision ENT ENT ED: Denies sore throat Cardiovascular Cardiovascular: Denies chest pain, palpitations or racing heartbeat Respiratory/Chest Respiratory/Chest: Denies cough or dyspnea Gastrointestinal Gastrointestinal: Denies abdominal pain, diarrhea, nausea or vomiting Genitourinary Genitourinary ED: Denies dysuria Musculoskeletal Musculoskeletal: Denies myalgias Integumentary Denies rash Neurologic Neurologic: Denies headache(s) or paresthesias Hematologic/Lymphatic Hematologic/Lymphatic: Denies easy bleeding or easy bruising EXAM Physical Exam Const Vital Signs: 11/21/22 22:57 11/22/22 01:00 Temperature 98.3 F Temperature Source Oral Pulse Rate 87 81 Respiratory Rate 16 16 Blood Pressure 175/70 H 154/78 H Blood Pressure Mean 105 Pulse Ox 96 98 Oxygen Delivery Method Room Air Positive well nourished and well developed General Appearance ED: well developed HEENT Reports moist mucous membranes HEENT Narrative: Normocephalic atraumatic Eyes PERRL and EOMs intact bilaterally Neck supple Neck Narrative: No nuchal rigidity or meningeal signs present Resp normal respiratory effort and clear to auscultation bilaterally Cardio regular rate and regular rhythm Rate: other Other Details: Radial pulses are plus 2 out of 4 bilaterally are equal and symmetric GI normal to inspection, nondistended, normoactive bowel sounds, non-tender, non-distended and no masses GI Narrative: No voluntary guarding or rigidity no pulsatile mass Auscultation: normoactive bowel sounds Palpation: soft Extremity normal to inspection Neuro oriented x3, CN's II-XII intact bilaterally and no sensory deficits noted Neuro Narrative: Cranial nerves II through XII are grossly intact there are no focal neurologic deficits. No pronator drift no dysmetria no truncal ataxia. NIH stroke scale score of 0 GCS of 15 Sensorium / Orientation: alert Motor Exam: strength 5/5 throughout Psych mental status grossly normal Skin no rashes or lesions noted MDM MDM MDM Narrative Medical decision making narrative: Patient presented to the ER mildly hypertensive but otherwise with stable vitals. GCS is 15 she is awake and alert to person place and time and she has no focal neurologic deficit. She reported just feeling off for the past few days but did not bring the symptoms up to her doctor when she was seen earlier today. She did report that she had difficulty working the phone for a few seconds and there is concern this could be secondary to a potential TIA or potential hyperammonemia or delirium from infectious process. Secondary to this basic blood work was obtained which revealed no clinically significant findings. Noncontrast head CT revealed no acute changes either. We discussed the CTA but patient states she is allergic to contrast dye and cannot even have the contrast if she is premedicated. Therefore at this time as patient has no signs of confusion a negative CT scan and negative lab work and symptoms have been going on for multiple days I do not feel she warrants admission to the hospital at this time. She can follow-up with her family doctor to discuss outpatient testing such as MRI or carotid duplex but with patient showing no neurologic deficits and no signs of confusion and stable laboratory values she is otherwise safe for discharge History & Record Review Discussion w/independent historian: Patient Lab Data Attestation: I reviewed the patient's lab results. Labs: Laboratory Results - last 24 hr 11/21/22 11/21/22 23:28 23:35 WBC 9.4 RBC 4.39 Hgb 14.2 Hct 42.9 MCV 97.7 MCH 32.3 H MCHC 33.1 RDW Std Deviation 47.3 H RDW Coeff of Alex 13.4 Plt Count 210 MPV 9.5 Immature Gran % (Auto) 0.700 Neut % (Auto) 49.4 Lymph % (Auto) 40.1 [place] % (Auto) 7.5 Eos % (Auto) 1.7 Baso % (Auto) 0.6 Absolute Neuts (auto) 4.6 Absolute Lymphs (auto) 3.76 Nucleated RBC % 0 Sodium 140 Potassium 4.1 Chloride 108 H Carbon Dioxide 26.0 Anion Gap 6 BUN 19 H Creatinine 0.80 Estim Creat Clear Calc 41.40 Est GFR (MDRD) Af Amer 88 Est GFR (MDRD) Non-Af 72 BUN/Creatinine Ratio 23.7 H Glucose 103 Calcium 9.3 Total Bilirubin 0.40 Direct Bilirubin 0.09 AST 11 L ALT 20 Alkaline Phosphatase 73 Ammonia < 10.0 L Total Protein 6.8 Albumin 3.6 Globulin 3.2 Urine Color Yellow Urine Clarity Clear Urine pH 7.0 Ur Specific [place] 1.010 Urine Protein Negative Urine Glucose (UA) Normal Urine Ketones Negative Urine Occult Blood 50 H Urine Nitrite Negative Urine Bilirubin Negative Urine Urobilinogen Normal Ur Leukocyte Esterase Negative Urine RBC 0 SEEN Urine WBC 0 SEEN Ur Squamous Epith Cells 0 SEEN Urine Bacteria 0 SEEN Urine Mucus 0 SEEN Radiography Diagnostic Testing: Clinical Impression(s) from Imaging Studies Brain CT 11/21/22 23:25 IMPRESSION: No acute findings. Chronic microvascular ischemic disease. CT angiogram or MRI may be helpful to evaluate for acute infarct if clinically indicated. Electronically Signed: Mireya Lei MD at 0:25 EDT , Discharge Plan Triage Chief Complaint: Confusion ED Provider: Nick Murphy Dx/Rx/DC Orders Clinical Impression: Mental status change resolved, HTN (hypertension) Instructions: ED Confusion Prescriptions: No Action prednisone 10 mg Tablet 10 mg PO DAILY ondansetron 4 mg tablet,disintegrating 4 mg PO Q8H PRN (Reason: nausea and vomiting) Qty: 10 0RF esomeprazole magnesium [Nexium] 20 mg capsule,delayed release(DR/EC) 20 mg PO DAILY Qty: 20 0RF Primary Care Provider: Bennett Weir Referrals: Bennett Weir MD [Primary Care Provider] - Activity Restrictions/Additional Instructions: Your work-up today showed no acute findings and therefore follow-up with your family doctor to discuss further outpatient testing and return to the ER should you have any further concerns Disposition Disposition: Home, Self Care Discharge Date/Time: 11/22/22 01:02
[2022-11-22 01:00] VITALS: BP 154/78; PULSE 81; RESP 16; O2SAT 98
== END 2022-11-22 01:02 | disposition home or self-care (01) ==
PROVIDERS: Emergency Provider Emergency Medicine; PCP Internal Medicine; Visit Provider Emergency Medicine
DX: R41.0 Disorientation, unspecified (principal); E78.5 Hyperlipidemia, unspecified; I10 Essential (primary) hypertension
CPT/HCPCS: 70450; 80048; 80076; 81001; 82140; 85025; 99284

== ENCOUNTER 2023-07-20 12:58 | Emergency (ER) | payer MEDICARE, OTHER, SELFPAY ==
[2023-07-20 13:02] VITALS: BP 161/76; PULSE 94; RESP 16; TEMP 36.6; O2SAT 100; BMI 29.4
--- NOTE | 2023-07-20 13:28 | EKG12_ITS ---
Test Reason : Blood Pressure : / mmHG Vent. Rate : 080 BPM Atrial Rate : 080 BPM P-R Int : 174 ms QRS Dur : 082 ms QT Int : 408 ms P-R-T Axes : 001 011 042 degrees QTc Int : 470 ms Normal sinus rhythm Minimal voltage criteria for LVH, may be normal variant ( R in aVL ) Borderline ECG Confirmed by JASON BILLINGS, FARAZ ([id number]), web content editor OLIVE VIEYRA ([id number]) on 07/27/2023 9:50:16 AM Referred By: Confirmed By:MARKY GOMEZ MD
[2023-07-20 13:48] VITALS: BP 149/85; BP 153/65; BP 173/67; PULSE 84; PULSE 87; PULSE 91
[2023-07-20 13:48] LABS: Absolute Lymphocyte Count 2.38 X10^3/uL (0.83-4.51); Absolute Neutrophil Count 5.3 X10^3/uL (2.0-7.7); Basophil# 0.05 X10^3/uL; Basophil% 0.6 % (0-1); Eosinophils% 1.2 % (0-5); Hematocrit 41.3 % (37-47); Hemoglobin 13.9 g/dL (12.0-15.0); Lymphocyte # 2.38 X10^3/ul (0.83-4.51); Lymphocyte % 28.3 % (19-41); Mean Corp Hgb Conc 33.7 g/dL (32-36); Mean Corpuscular Hgb 31.8 pg (27.0-32.0); Mean Corpuscular Volume 94.5 fL (81-99); Mean Platelet Vol. 9.6 fl (6.2-12.0); Monocyte# 0.58 X10^3/uL; Monocyte% 6.9 % (0-10); NRBC Flagged by Analyzer 0 % (0-5); Neutrophil # 5.25 X10^3/uL (2.7-7.7); Neutrophil % 62.3 % (47-70); Platelet Count 211 K/mm3 (150-450); RBC Distribution Width CV 13.7 % (11.6-14.6); RBC Distribution Width SD 47.7 fl (35.1-43.9); Red Blood Count 4.37 M/mm3 (4.2-5.4); White Blood Count 8.4 K/mm3 (4.4-11.0)
[2023-07-20] MEDS: 0.9% Normal Saline (1000mL) 1,000 ML 999 ML IV (13:59)
[2023-07-20 14:02] LABS: Anion Gap 2 (5-15); BUN 17 mg/dL (7-18); BUN/Creat Ratio 26.2 RATIO (10-20); Calcium,Total 9.2 mg/dL (8.5-10.1); Chloride 111 mmol/L (98-107); Creatinine, Serum 0.65 mg/dL (0.55-1.02); EST Glomerular Filtration Rate 92 mL/min (>60); Est Glom Filt Rate - Afr Amer 112 mL/min (>60); Glucose 118 mg/dL (74-106); Potassium 3.8 mmol/L (3.5-5.1); Sodium Level 139 mmol/L (136-145); Troponin-I HS 8 pg/mL (3.0-54.0)
--- NOTE | 2023-07-20 14:03 | EX.ED.DYSGE1 ---
HPI <REBEL Cornejo - Last Filed: 07/20/23 15:16> History of Present Illness Chief Complaint: Dizziness Narrative Narrative: 83-year-old female presents with lightheadedness. She has had this issue intermittently for several years but over the last 2 days it seems more frequent. It can occur with sitting or standing. She gets a wave of lightheadedness that passes over her. If she is walking she has to hold onto things. She has no vision changes, headache, chest pain or shortness of breath, nausea vomiting or abdominal pain. She denies syncope or falling. She takes no medications. She states her doctor just called in [facility] for her cholesterol but she has not started it yet. She has had normal p.o. intake, normal bladder and bowel movements, no melena or hematochezia. PFSH <REBEL Cornejo - Last Filed: 07/20/23 15:16> [facility] Medical History (Updated 07/20/23 @ 15:[address] Rajan Hubbard MD) Anxiety Carotid stenosis Fibromyalgia GERD (gastroesophageal reflux disease) Hyperlipidemia Hypertension Home Medications ondansetron 4 mg disintegrating tablet 4 mg PO Q8H PRN nausea and vomiting #10 tabs 10/07/21 [Rx Last Taken Unknown] prednisone 10 mg tablet 10 mg PO DAILY 10/07/21 [History Last Taken Unknown] esomeprazole magnesium 20 mg capsule,delayed release (Nexium) 20 mg PO DAILY #20 caps 08/04/22 [Rx Last Taken Unknown] Allergy/AdvReac Type Severity Reaction Status Date / Time iodine Allergy Shortness Verified 08/04/22 16:52 of breath Mamvlql-LTG-TaL Reductase Allergy Rash Verified 08/04/22 16:52 Inhibitor [Jvjwmtj-Wcd-Sur Reductase Inhibitor] fenofibrate [From Tricor] AdvReac Other Verified 08/04/22 16:52 Family History (Updated 11/21/22 @ 23:[address] Vandana Bates MD) Mother Heart disease Father Heart disease Surgical History (Updated 11/21/22 @ 23:[address] Vandana Bates MD) S/P partial resection of colon Social History (Updated 11/21/22 @ 23:[address] Vandana Bates MD) household members: none Smoking Status: Never smoker alcohol intake: never substance use type: does not use ROS <REBEL Cornejo - Last Filed: 07/20/23 15:16> ROS ED ROS Narrative Constitutional: Negative for fever, chills, malaise. CVS: Negative for palpitations, chest pain, syncope. Respiratory: Negative for shortness of breath, cough. GI: Negative for abdominal pain, nausea, vomiting, diarrhea, melena, hematochezia. : Negative for dysuria. Neuro: Negative for headache. EXAM <REBEL Cornejo - Last Filed: 07/20/23 15:16> Physical Exam Narrative Exam Narrative: CONST: Patient sitting in no acute distress. EYES: Normal inspection. PERRL, EOMI, no nystagmus. NECK: Normal inspection. RESP: No respiratory distress, CTAB. CVS: Regular rate and rhythm, no murmur, no gallop. ABD: Soft and nontender, no guarding or rebound, nondistended. SKIN: Color normal, no rash, warm, dry, intact. EXTREMITIES: Normal appearance, no pedal edema. NEURO: Oriented x4. Face symmetric, cranial nerves intact, normal finger-nose and [id number]-[id number]. PSYCH: Normal affect. Const Vital Signs: 07/20/23 13:02 07/20/23 13:48 07/20/23 15:14 Temperature 97.8 F 98.1 F Temperature Source Temporal Pulse Rate 94 77 Pulse Rate [Lying] 84 Pulse Rate [Sitting (for 1 minute prior to obtaining)] 87 Pulse Rate [Standing (for 1 minute prior to obtaining)] 91 Respiratory Rate 16 16 Blood Pressure 161/76 H 159/56 H Blood Pressure [Lying] 153/65 H Blood Pressure [Sitting (for 1 minute prior to obtaining)] 149/85 H Blood Pressure [Standing (for 1 minute prior to obtaining)] 173/67 H Blood Pressure Mean 104 90 Blood Pressure Mean [Lying] 94 Blood Pressure Mean [Sitting (for 1 minute prior to obtaining)] 106 Blood Pressure Mean [Standing (for 1 minute prior to obtaining)] 102 Pulse Ox 100 99 Oxygen Delivery Method Room Air <Dr. Rajan Hubbard MD - Last Filed: 07/20/23 15:00> Physical Exam Const Vital Signs: 07/20/23 13:02 07/20/23 13:48 07/20/23 15:14 Temperature 97.8 F 98.1 F Temperature Source Temporal Pulse Rate 94 77 Pulse Rate [Lying] 84 Pulse Rate [Sitting (for 1 minute prior to obtaining)] 87 Pulse Rate [Standing (for 1 minute prior to obtaining)] 91 Respiratory Rate 16 16 Blood Pressure 161/76 H 159/56 H Blood Pressure [Lying] 153/65 H Blood Pressure [Sitting (for 1 minute prior to obtaining)] 149/85 H Blood Pressure [Standing (for 1 minute prior to obtaining)] 173/67 H Blood Pressure Mean 104 90 Blood Pressure Mean [Lying] 94 Blood Pressure Mean [Sitting (for 1 minute prior to obtaining)] 106 Blood Pressure Mean [Standing (for 1 minute prior to obtaining)] 102 Pulse Ox 100 99 Oxygen Delivery Method Room Air MDM <REBEL Cornejo - Last Filed: 07/20/23 15:16> [facility] Narrative Medical decision making narrative: History gathered from: Patient and daughter Differential: Orthostatic hypotension, anemia, electrolyte abnormality, cardiac arrhythmia Patient complains of chronic episodes of lightheadedness increasing in frequency over the last 2 days. She has no associated symptoms. She has not had any syncopal episodes. She appears well and nontoxic. BP is 161/76 with otherwise normal vital signs. She is not on any medications. Exam is unremarkable; no focal neurological deficits. CBC and BMP are unremarkable. UA negative. EKG is normal sinus rhythm and troponin is negative. CXR shows no acute process. Orthostatic vital signs are negative and actually went up. Patient is able to ambulate and will be discharged home with outpatient follow-up. I have personally performed a face to face assessment of the patient and have reviewed the CHUCK Note. I performed a substantive portion of the visit including all aspects of the following. My metcalf findings include: History is 83-year-old female for years has had these episodes of lightheadedness that come on and off very quickly lasting generally seconds. These seem more frequent recently. Denies any history of stroke or TIA. No recent head trauma. She has a known meningioma. She denies any chest pain, headache, nausea vomiting or diarrhea nor melena. No recent fever. Currently she is back to her baseline. She had an episode earlier today. Exam is [well-appearing 83-year-old female. Vital signs stable afebrile. Pulse ox 9% room air no signs hypoxia. HEENT exam normal. Pupils round and left eye light. No facial droop. Normal speech. Neck nontender no lymphadenopathy. 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 It is nontender to been there for years. Lungs clear to auscultation bilaterally. Heart regular rhythm no murmur rate about 90. Chest wall nontender. Abdomen soft nontender. Moving all 4 extremities. 5 out of 5 management instructor strength. Dorsi plantarflexion intact. Neurologically she is awake and alert with no focal motor deficits. NIH score is normal.] Medical Decision Making [ Exam labs and chest x-ray and EKG were all normal. and patient will be discharged home with outpatient follow-up.] Other additions or changes: [None] Lab Data Attestation: I reviewed the patient's lab results. Labs: Laboratory Results - last 24 hr 07/20/23 07/20/23 13:37 14:02 WBC 8.4 RBC 4.37 Hgb 13.9 Hct 41.3 MCV 94.5 MCH 31.8 MCHC 33.7 RDW Std Deviation 47.7 H RDW Coeff of Alex 13.7 Plt Count 211 MPV 9.6 Immature Gran % (Auto) 0.700 Neut % (Auto) 62.3 Lymph % (Auto) 28.3 Calhoun % (Auto) 6.9 Eos % (Auto) 1.2 Baso % (Auto) 0.6 Absolute Neuts (auto) 5.3 Absolute Lymphs (auto) 2.38 Nucleated RBC % 0 Sodium 139 Potassium 3.8 Chloride 111 H Carbon Dioxide 26.0 Anion Gap 2 L BUN 17 Creatinine 0.65 Estim Creat Clear Calc 50.00 Est GFR (MDRD) Af Amer 112 Est GFR (MDRD) Non-Af 92 BUN/Creatinine Ratio 26.2 H Glucose 118 H Calcium 9.2 Troponin I High Sens 8 Urine Color Yellow Urine Clarity Sl. Cloudy Urine pH 7.0 Ur Specific Accord 1.005 Urine Protein Negative Urine Glucose (UA) Normal Urine Ketones Negative Urine Occult Blood 50 H Urine Nitrite Negative Urine Bilirubin Negative Urine Urobilinogen Normal Ur Leukocyte Esterase Negative Urine RBC 0-5 SEEN Urine WBC 0 SEEN Ur Squamous Epith Cells 0 SEEN Urine Bacteria 0 SEEN Urine Mucus 0 SEEN Radiography Diagnostic Testing: Clinical Impression(s) from Imaging Studies Chest X-Ray 07/20/23 14:11 IMPRESSION: Cardiomegaly with mild hyperinflation and no acute or active cardiopulmonary disease. Electronically Signed: Timmy Cross MD at 14:20 EST , ED attending interpretation of 1-view chest x-ray shows normal heart size, no acute infiltrate, edema, or effusion. EKG Initial EKG: Attestation: I personally reviewed and interpreted this EKG as follows: Interpretation: Sinus Rhythm and No Acute Injury Pattern Comments: Normal sinus rhythm at 80 bpm No acute ischemic changes <Dr. Rajan Hubbard MD - Last Filed: 07/20/23 15:00> [facility] MDM Narrative Medical decision making narrative: History gathered from: Patient and daughter Patient complains of chronic episodes of lightheadedness increasing in frequency over the last 2 days. She has no associated symptoms. She has not had any syncopal episodes. She appears well and nontoxic. BP is 161/76 with otherwise normal vital signs. She is not on any medications. Exam is unremarkable; no focal neurological deficits. CBC and BMP are unremarkable. EKG is normal sinus rhythm and troponin is negative. CXR shows no acute process. Orthostatic vital signs are negative and actually went up. I have personally performed a face to face assessment of the patient and have reviewed the CHUCK Note. I performed a substantive portion of the visit including all aspects of the following. My metcalf findings include: History is 83-year-old female for years has had these episodes of lightheadedness that come on and off very quickly lasting generally seconds. These seem more frequent recently. Denies any history of stroke or TIA. No recent head trauma. She has a known meningioma. She denies any chest pain, headache, nausea vomiting or diarrhea nor melena. No recent fever. Currently she is back to her baseline. She had an episode earlier today. Exam is [well-appearing 83-year-old female. Vital signs stable afebrile. Pulse ox 9% room air no signs hypoxia. HEENT exam normal. Pupils round and left eye light. No facial droop. Normal speech. Neck nontender no lymphadenopathy. 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 It is nontender to been there for years. Lungs clear to auscultation bilaterally. Heart regular rhythm no murmur rate about 90. Chest wall nontender. Abdomen soft nontender. Moving all 4 extremities. 5 out of 5 management instructor strength. Dorsi plantarflexion intact. Neurologically she is awake and alert with no focal motor deficits. NIH score is normal.] Medical Decision Making [ Exam labs and chest x-ray and EKG were all normal. and patient will be discharged home with outpatient follow-up.] Other additions or changes: [None] History & Record Review Discussion w/independent historian: Patient Additional record(s) reviewed:: Prior inpatient record, Prior outpatient record, Prior ED visit and Prior labs Lab Data Lab results narrative: CBC normal. Chemistries normal. Gap 2. Normal BUN and creatinine. Glucose 118. Troponin normal at 8. UA normal. Chest x-ray normal. Labs: Laboratory Results - last 24 hr 07/20/23 07/20/23 13:37 14:02 WBC 8.4 RBC 4.37 Hgb 13.9 Hct 41.3 MCV 94.5 MCH 31.8 MCHC 33.7 RDW Std Deviation 47.7 H RDW Coeff of Alex 13.7 Plt Count 211 MPV 9.6 Immature Gran % (Auto) 0.700 Neut % (Auto) 62.3 Lymph % (Auto) 28.3 Calhoun % (Auto) 6.9 Eos % (Auto) 1.2 Baso % (Auto) 0.6 Absolute Neuts (auto) 5.3 Absolute Lymphs (auto) 2.38 Nucleated RBC % 0 Sodium 139 Potassium 3.8 Chloride 111 H Carbon Dioxide 26.0 Anion Gap 2 L BUN 17 Creatinine 0.65 Estim Creat Clear Calc 50.00 Est GFR (MDRD) Af Amer 112 Est GFR (MDRD) Non-Af 92 BUN/Creatinine Ratio 26.2 H Glucose 118 H Calcium 9.2 Troponin I High Sens 8 Urine Color Yellow Urine Clarity Sl. Cloudy Urine pH 7.0 Ur Specific Accord 1.005 Urine Protein Negative Urine Glucose (UA) Normal Urine Ketones Negative Urine Occult Blood 50 H Urine Nitrite Negative Urine Bilirubin Negative Urine Urobilinogen Normal Ur Leukocyte Esterase Negative Urine RBC 0-5 SEEN Urine WBC 0 SEEN Ur Squamous Epith Cells 0 SEEN Urine Bacteria 0 SEEN Urine Mucus 0 SEEN Radiography Chest X-Ray - ED: 1 View, Read by ED Physician, Read by Radiologist, Heart, Lungs, Mediastinum, Bony Structures, No Acute Disease and Chronic Changes Diagnostic Testing: Clinical Impression(s) from Imaging Studies Chest X-Ray 07/20/23 14:11 IMPRESSION: Cardiomegaly with mild hyperinflation and no acute or active cardiopulmonary disease. Electronically Signed: Timmy Cross MD at 14:20 EST , Rhythm Strip Rhythm Strip: Sinus Rhythm Rate: 80 Ectopy: None Discharge Plan Triage Chief Complaint: Dizziness ED Midlevel Provider: Jesica Mitchell ED Provider: Rajan Hubbard Dx/Rx/DC Orders Clinical Impression: Episodic lightheadedness Instructions: ED Dizziness, Uncertain Cause Prescriptions: No Action prednisone 10 mg Tablet 10 mg PO DAILY ondansetron 4 mg tablet,disintegrating 4 mg PO Q8H PRN (Reason: nausea and vomiting) Qty: 10 0RF esomeprazole magnesium [Nexium] 20 mg capsule,delayed release(DR/EC) 20 mg PO DAILY Qty: 20 0RF Primary Care Provider: Bennett Weir Referrals: Bennett Weir MD [Primary Care Provider] - 3-5 Days Activity Restrictions/Additional Instructions: Your labs, chest x-ray, and EKG were all unremarkable. Your exam is normal. We do not have a specific cause for your symptoms. You do not need to be admitted to the hospital. Outpatient follow-up with your primary care physician. Disposition Disposition: Home, Self Care
[2023-07-20 14:06] LABS: Bacteria 0 SEEN /hpf (None Seen); Mucous, Urine 0 SEEN /hpf (<or=2+); Squamous Epithelial Cells - UA 0 SEEN /hpf (5-10); White Blood Cells 0 SEEN /hpf (0-5)
--- NOTE | 2023-07-20 14:11 | RAD_ITS ---
STUDY: X-RAY CHEST REASON FOR EXAM: Female, 83 years old. Dizzy. TECHNIQUE: Single frontal view of the chest. COMPARISON: None. FINDINGS: Mild hyperinflation. There is no demonstrated pleural abnormality. Cardiomegaly. Normal mediastinum and anton. Normal visualized pulmonary arteries. Aortic tortuosity with calcification. Normal visualized thoracic spine. Normal visualized ribs, clavicles, and shoulders. No abnormality of the visualized soft tissue structures of the upper abdomen. RAD/Chest 1 View (Portable) IMPRESSION: Cardiomegaly with mild hyperinflation and no acute or active cardiopulmonary disease. Electronically Signed: Timmy Cross MD at 14:20 EST ,
[2023-07-20 14:21] LABS: Color, Urine Yellow (Yellow); Glucose, Dipstick Normal (Normal); Ketone-Dipstick Negative (Negative); Leukocyte Esterase-Dipstick Negative /ul (Negative); Nitrite-Dipstick Negative (Negative); Occult Blood-Urine 50 /ul (Negative); Protein-Dipstick Negative (Negative); Specific Gravity, Urine 1.005 (1.002-1.030); Urine Bilirubin Dipstick Negative (Negative); Urine Clarity Sl. Cloudy (Clear); Urine Urobilinogen Normal (Normal)
[2023-07-20 14:34] LABS: Red Blood Cells-Urine 0-5 SEEN /hpf (0-5)
[2023-07-20 15:14] VITALS: BP 159/56; PULSE 77; RESP 16; TEMP 36.7; O2SAT 99
--- OUTSIDE RECORDS SUMMARY | 2023-07-20 22:27 | XMS RPT_ITS | CCD ---
Author Name Unknown Address [address] [place] [address] Organization [facility] Care Team Providers Care Clinical Fellow Name Role Phone Destin BILLINGS, Bennett Garcia Primary Care Provider Destin BILLINGS, Bennett Garcia Primary Care Provider [phone] Antwon SIM, Brina Dumont Unavailable RN, Concepción L Unavailable Emily SIM, Gay Newton Unavailable Bishop SIM, Concepción L Unavailable Emily SIM, Gay E Unavailable RN, Concepción L Unavailable Froy SIM, Stacy Unavailable GABRIELLA GOVEA Referring Unavailable DESTIN, BENNETT Garcia Primary Care Unavailable DESTIN, BENNETT Garcia Primary Care Unavailable TAMIKO BUCHANAN Attending Unavailable BENNETT WEIR Referring Unavailable DESTIN, BENNETT Garcia Primary Care Unavailable WEIR, BENNETT Garcia Primary Care Unavailable WEIR, BENNETT Garcia Attending Unavailable DESTIN, BENNETT Garcia Referring Unavailable WEIR, BENNETT Garcia Referring Unavailable WEIR, BENNETT Garcia Primary Care Unavailable DESTIN, BENNETT Garcia Attending Unavailable DESTIN, BENNETT Garcia Primary Care Unavailable KIRSTEN LEON Attending Unavailable KIRSTEN LEON Referring Unavailable WEIR, BENNETT Garcia Primary Care Unavailable KIRSTEN LEON Referring Unavailable WEIR, BENNETT Garcia Primary Care Unavailable DESTIN, BENNETT Garcia Primary Care Unavailable TAMIKO BUCHANAN Referring Unavailable WEIRBENNETT Zee Primary Care Unavailable TAMIKO BUCHANAN Attending Unavailable BENNETT WEIR Primary Care Unavailable GABRIELLA GOVEA Attending Unavailable BENNETT WEIR Primary Care Unavailable TAMIKO BUCHANAN Referring Unavailable Allergies Allergy Classification Reported Allergen(s) Allergy Type Date of Onset Reaction(s) Facility (20 sources) atorvastatin; Translations: [ATORVASTATIN CALCIUM] Drug Allergy 5 Myalgia [facility] Work Phone: (20 sources) Cephalexin; Translations: [CEPHALEXIN] Drug Allergy 5 Rash [facility] Work Phone: (20 sources) Ciprofloxacin; Translations: [CIPROFLOXACIN] Drug Allergy 0 [facility] Work Phone: (8 sources) HMG-CoA reductase inhibitor; Translations: [[id number] A REDUCTASE INHIBITORS] Drug Intolerance 5 Myalgia [facility] Work Phone: (20 sources) Iodine; Translations: [IODINE] Drug Allergy 5 Hives, Swelling, Shortness of Breath [facility] Work Phone: (20 sources) Lovastatin; Translations: [LOVASTATIN] Drug Allergy 5 Myalgia [facility] Work Phone: (8 sources) Penicillins; Translations: [PENICILLINS] Propensity to adverse reactions 5 Shortness of Breath [facility] Work Phone: (20 sources) rosuvastatin; Translations: [ROSUVASTATIN CALCIUM] Drug Allergy 3 Other: See Comments [facility] Work Phone: (20 sources) Sulfamethoxazol e; Translations: [SULFAMETHOXAZO LE] Drug Allergy 0 [facility] Work Phone: (20 sources) HMG-CoA reductase inhibitor Drug Intolerance 5 Myalgia [facility] Work Phone: (20 sources) Penicillins Propensity to adverse reactions 5 Shortness of Breath [facility] Work Phone: (15 sources) Fenofibrate; Translations: [FENOFIBRATE] Drug Allergy Other: See Comments [facility] Medications Current Medications Medication Drug Class(es) Dates Sig (Normalized) Sig (Original) azithromycin 250 mg oral tablet (1 source) Macrolide Antimicrobial Start: 05-07-2022 End: 05-12-2022 azithromycin (ZITHROMAX Z-TUNDE) 250 mg tablet Indications: Acute upper respiratory infection, unspecified Take 2 tablets day one, then, 1 tablet daily until gone. 6 tablet 0 05/07/2022 05/12/2022 Active Completed/Discontinued Medications Medication Drug Class(es) Dates Sig (Normalized) Sig (Original) amLODIPine 5 mg oral tablet (4 sources) Dihydropyridine Calcium Channel Kylah Start: 08-30-2021 End: 09-16-2021 take 1 tablet by mouth once daily amLODIPine (NORVASC) 5 mg tablet Indications: Essential hypertension Take 1 tablet by mouth once daily. 30 tablet 0 08/30/2021 09/16/2021 Discontinued Problems Active Problems Problem Classification Problem Date Documented Da te Episodic/Chronic Abdominal pain (2 sources) Left sided abdominal pain; Translations: [Unspecified abdominal pain] Episodic Anxiety disorders (20 sources) Anxiety about body function or health; Translations: [Other specified anxiety disorders] Onset: 08-30-2021 Chronic Cardiac dysrhythmias (1 source) Palpitations; Translations: [Palpitations] Episodic Disorders of lipid metabolism (20 sources) Mixed hyperlipidemia; Translations: [Mixed hyperlipidemia] Onset: 03-24-2016 03-24-2016 Chronic Essential hypertension (20 sources) Essential hypertension; Translations: [Essential (primary) hypertension] Onset: 07-24-2020 07-24-2020 Chronic Heart valve disorders (20 sources) Aortic valve sclerosis; Translations: [Other nonrheumatic aortic valve disorders] Onset: 03-24-2016 03-24-2016 Chronic Open wounds of extremities (1 source) Tear of skin; Translations: [Laceration without foreign body of left forearm, initial encounter] 12-30-2022 Episodic Other aftercare (1 source) Long-term current use of systemic steroid; Translations: [jail (current) use of systemic steroids] Episodic Other and unspecified benign neoplasm (1 source) Neuroma; Translations: [Benign neoplasm of peripheral nerves and autonomic nervous system, unspecified] 12-23-2022 Episodic Other bone disease and musculoskeletal deformities (1 source) Osteopenia; Translations: [Other specified disorders of bone density and structure, unspecified site] Episodic Other circulatory disease (20 sources) Raynaud's phenomenon; Translations: [Raynaud's syndrome without gangrene] Onset: 11-27-2020 11-27-2020 Chronic Other connective tissue disease (17 sources) Polymyalgia rheumatica; Translations: [Polymyalgia rheumatica] Onset: 09-16-2021 Chronic Other connective tissue disease (1 source) Muscle pain; Translations: [Myalgia, unspecified site] Episodic Other connective tissue disease (4 sources) Pain in left foot; Translations: [Pain in left foot] Episodic Other gastrointestinal disorders (1 source) Diarrhea; Translations: [Diarrhea, unspecified] 01-20-2023 Episodic Other lower respiratory disease (1 source) Rib pain; Translations: [Pleurodynia] Episodic Other non-traumatic joint disorders (1 source) Pain in right knee; Translations: [Pain in joint, lower leg] 04-24-2023 Episodic Other nutritional; endocrine; and metabolic disorders (20 sources) Obese class I; Translations: [Obesity, unspecified] Onset: 09-27-2018 09-27-2018 Chronic Other screening for suspected conditions (not mental disorders or infectious disease) (1 source) Finding of thyroid gland; Translations: [Abnormal findings on diagnostic imaging of other specified body structures] 06-04-2022 Chronic Other upper respiratory infections (1 source) Acute upper respiratory infection; Translations: [Acute upper respiratory infection, unspecified] Episodic Peripheral and visceral atherosclerosis (20 sources) Atherosclerosis of artery ; Translations: [Unspecified atherosclerosis] Onset: 03-24-2016 03-24-2016 Chronic Residual codes; unclassified (1 source) Influenza-like symptoms; Translations: [Other general symptoms and signs] Episodic Thyroid disorders (20 sources) Multinodular goiter; Translations: [Nontoxic multinodular goiter] Onset: 11-08-2019 11-18-2019 Chronic Past or Other Problems Problem Classification Problem Date Documented Da te Episodic/Chronic Allergic reactions (20 sources) Chronic urticaria; Translations: [Other urticaria] Onset: 03-04-2017 03-04-2017 Episodic Miscellaneous mental health disorders (2 sources) Anxiety about body function or health; Translations: [Other symptoms and signs involving emotional state] Onset: 08-30-2021 08-30-2021 Episodic Other and unspecified benign neoplasm (20 sources) Benign neoplasm of colon; Translations: [Benign neoplasm of colon, unspecified] Onset: 06-03-2005 06-03-2005 Episodic Other connective tissue disease (10 sources) Synovitis/tenosyno vitis - wrist; Translations: [Synovitis and tenosynovitis, unspecified] Onset: 01-20-2022 Episodic Other connective tissue disease (2 sources) Pain in left foot; Translations: [Left foot pain] Onset: 12-23-2022 Episodic Other gastrointestinal disorders (1 source) Diarrhea, unspecified; Translations: [Diarrhea, unspecified type] Onset: 01-20-2023 Episodic Other screening for suspected conditions (not mental disorders or infectious disease) (2 sources) Patient encounter status; Translations: [Encounter for screening mammogram for malignant neoplasm of breast] Onset: 09-18-2022 09-18-2022 Episodic Results Test Name Value Interpretation Reference Range Facil ity Vital Signs Date Time Vital Sign Value Performing Clinician Faci lity 04-24-2023 10:59-0500 Body height 157.5 cm Bennett Weir MD Work Phone: [facility] 04-24-2023 10:59-0500 Body temperature 98.8 [degF] Bennett Weir MD Work Phone: [facility] 04-24-2023 10:59-0500 Body weight 71.67 kg Bennett Weir MD Work Phone: [facility] 04-24-2023 10:59-0500 Diastolic blood pressure 60 mm[Hg] Bennett Weir MD Work Phone: [facility] 04-24-2023 10:59-0500 Heart rate 92 /min Bennett Weir MD Work Phone: [facility] 04-24-2023 10:59-0500 Respiratory rate 12 /min Bennett Weir MD Work Phone: [facility] 04-24-2023 10:59-0500 SaO2% (BldA) [Mass fraction] 97 % Bennett Weir MD Work Phone: [facility] 04-24-2023 10:59-0500 Systolic blood pressure 130 mm[Hg] Bennett Weir MD Work Phone: [facility] 03-31-2023 08:20-0500 Diastolic blood pressure 67 mm[Hg] Kirsten Leon DO Work Phone: [facility] 03-31-2023 08:20-0500 Heart rate 85 /min Kirsten Leon DO Work Phone: [facility] 03-31-2023 08:20-0500 SaO2% (BldA) [Mass fraction] 99 % Kirsten Leon DO Work Phone: [facility] 03-31-2023 08:20-0500 Systolic blood pressure 114 mm[Hg] Kirsten Leon DO Work Phone: [facility] 01-20-2023 13:55-0400 Body temperature 98.91 [degF] Tamiko Older TRACK BROOM OPERATOR.DEPARTMENT STORE DOOR GREETER Work Phone: [facility] 01-20-2023 13:55-0400 Body weight 73.03 kg Tamiko Older TRACK BROOM OPERATOR.DEPARTMENT STORE DOOR GREETER Work Phone: [facility] 01-20-2023 13:55-0400 Diastolic blood pressure 76 mm[Hg] Tamiko Older TRACK BROOM OPERATOR.DEPARTMENT STORE DOOR GREETER Work Phone: [facility] 01-20-2023 13:55-0400 Heart rate 96 /min Tamiko Older TRACK BROOM OPERATOR.DEPARTMENT STORE DOOR GREETER Work Phone: [facility] 01-20-2023 13:55-0400 Respiratory rate 14 /min Tamiko Older TRACK BROOM OPERATOR.DEPARTMENT STORE DOOR GREETER Work Phone: [facility] 01-20-2023 13:55-0400 SaO2% (BldA) [Mass fraction] 100 % Tamiko Older TRACK BROOM OPERATOR.DEPARTMENT STORE DOOR GREETER Work Phone: [facility] 01-20-2023 13:55-0400 Systolic blood pressure 134 mm[Hg] Tamiko Older TRACK BROOM OPERATOR.DEPARTMENT STORE DOOR GREETER Work Phone: [facility] 12-30-2022 18:51-0400 Body temperature 97.59 [degF] Krislyn Aberegg PA Work Phone: [facility] 12-30-2022 18:51-0400 Body weight 73.75 kg Krislyn Aberegg PA Work Phone: [facility] 12-30-2022 18:51-0400 Diastolic blood pressure 68 mm[Hg] Krislyn Aberegg PA Work Phone: [facility] 12-30-2022 18:51-0400 Heart rate 110 /min Krislyn Aberegg PA Work Phone: [facility] 12-30-2022 18:51-0400 Respiratory rate 18 /min Krislyn Aberegg PA Work Phone: [facility] 12-30-2022 18:51-0400 SaO2% (BldA) [Mass fraction] 97 % Krislyn Aberegg PA Work Phone: [facility] 12-30-2022 18:51-0400 Systolic blood pressure 132 mm[Hg] Krislyn Aberegg PA Work Phone: [facility] 11-21-2022 09:50-0400 Heart rate 88 /min Tamiko Older TRACK BROOM OPERATOR.DEPARTMENT STORE DOOR GREETER Work Phone: [facility] 11-21-2022 09:33-0400 Body height 158 cm Tamiko Older TRACK BROOM OPERATOR.DEPARTMENT STORE DOOR GREETER Work Phone: [facility] 11-21-2022 09:33-0400 Body weight 74.39 kg Tamiko Older TRACK BROOM OPERATOR.DEPARTMENT STORE DOOR GREETER Work Phone: [facility] 11-21-2022 09:33-0400 Diastolic blood pressure 72 mm[Hg] Tamiko Older TRACK BROOM OPERATOR.DEPARTMENT STORE DOOR GREETER Work Phone: [facility] 11-21-2022 09:33-0400 Respiratory rate 14 /min Tamiko Older TRACK BROOM OPERATOR.DEPARTMENT STORE DOOR GREETER Work Phone: [facility] 11-21-2022 09:33-0400 Systolic blood pressure 125 mm[Hg] Tamiko Quinn TRACK BROOM OPERATOR.DEPARTMENT STORE DOOR GREETER Work Phone: [facility] 05-07-2022 10:07-0500 Diastolic blood pressure 73 mm[Hg] Bennett Weir MD Work Phone: [facility] 05-07-2022 10:07-0500 Heart rate 102 /min Bennett Weir MD Work Phone: [facility] 05-07-2022 10:07-0500 Systolic blood pressure 134 mm[Hg] Bennett Weir MD Work Phone: [facility] 05-07-2022 09:58-0500 Body temperature 97 [degF] Bennett Weir MD Work Phone: [facility] 05-07-2022 09:58-0500 Body weight 72.12 kg Bennett Weir MD Work Phone: [facility] 05-07-2022 09:58-0500 SaO2% (BldA) [Mass fraction] 97 % Bennett Weir MD Work Phone: [facility] 04-03-2022 13:48-0500 Body height 158.1 cm Kirsten Leon DO Work Phone: [facility] 04-03-2022 13:48-0500 Body weight 73.03 kg Kirsten Manle DO Work Phone: [facility] 04-03-2022 13:48-0500 Diastolic blood pressure 62 mm[Hg] Kirsten Leon DO Work Phone: [facility] 04-03-2022 13:48-0500 Heart rate 90 /min Kirsten Leon DO Work Phone: [facility] 04-03-2022 13:48-0500 SaO2% (BldA) [Mass fraction] 99 % Kirsten Leon DO Work Phone: [facility] 04-03-2022 13:48-0500 Systolic blood pressure 128 mm[Hg] Kirsten Leon DO Work Phone: [facility] 02-18-2022 12:59-0400 Body weight 73.48 kg Tamiko Older TRACK BROOM OPERATOR.DEPARTMENT STORE DOOR GREETER Work Phone: [facility] 02-18-2022 12:59-0400 Diastolic blood pressure 62 mm[Hg] Tamiko Older TRACK BROOM OPERATOR.DEPARTMENT STORE DOOR GREETER Work Phone: [facility] 02-18-2022 12:59-0400 Heart rate 99 /min Tamiko Older TRACK BROOM OPERATOR.DEPARTMENT STORE DOOR GREETER Work Phone: [facility] 02-18-2022 12:59-0400 SaO2% (BldA) [Mass fraction] 99 % Tamiko Older TRACK BROOM OPERATOR.DEPARTMENT STORE DOOR GREETER Work Phone: [facility] 02-18-2022 12:59-0400 Systolic blood pressure 130 mm[Hg] Tamiko Older TRACK BROOM OPERATOR.DEPARTMENT STORE DOOR GREETER Work Phone: [facility] 01-20-2022 15:56-0400 Body temperature 97.81 [degF] Bennett Weir MD Work Phone: [facility] 01-20-2022 15:56-0400 Body weight 73.03 kg Bennett Weir MD Work Phone: [facility] 01-20-2022 15:56-0400 Diastolic blood pressure 76 mm[Hg] Bennett Weir MD Work Phone: [facility] 01-20-2022 15:56-0400 Heart rate 100 /min Bennett Weir MD Work Phone: [facility] 01-20-2022 15:56-0400 Respiratory rate 18 /min Bennett Weir MD Work Phone: [facility] 01-20-2022 15:56-0400 Systolic blood pressure 126 mm[Hg] Bennett Weir MD Work Phone: [facility] 01-09-2022 10:19-0400 Body temperature 98.2 [degF] Tamiko Older TRACK BROOM OPERATOR.DEPARTMENT STORE DOOR GREETER Work Phone: [facility] 01-09-2022 10:190400 Body weight 72.12 kg Tamiko Older TRACK BROOM OPERATOR.DEPARTMENT STORE DOOR GREETER Work Phone: [facility] 01-09-2022 10:19-0400 Diastolic blood pressure 72 mm[Hg] Tamiko Older TRACK BROOM OPERATOR.DEPARTMENT STORE DOOR GREETER Work Phone: [facility] 01-09-2022 10:19-0400 Heart rate 95 /min Tamiko Older TRACK BROOM OPERATOR.DEPARTMENT STORE DOOR GREETER Work Phone: [facility] 01-09-2022 10:190400 Respiratory rate 14 /min Tamiko Older TRACK BROOM OPERATOR.DEPARTMENT STORE DOOR GREETER Work Phone: [facility] 01-09-2022 10:19-0400 SaO2% (BldA) [Mass fraction] 98 % Tamiko Older TRACK BROOM OPERATOR.DEPARTMENT STORE DOOR GREETER Work Phone: [facility] 01-09-2022 10:190400 Systolic blood pressure 138 mm[Hg] Tamiko Older TRACK BROOM OPERATOR.DEPARTMENT STORE DOOR GREETER Work Phone: [facility] 09-16-2021 14:27-0400 Body temperature 97.5 [degF] Bennett Weir MD Work Phone: [facility] 09-16-2021 14:27-0400 Body weight 71.94 kg Bennett Weir MD Work Phone: [facility] 09-16-2021 14:27-0400 Diastolic blood pressure 66 mm[Hg] Bennett Weir MD Work Phone: [facility] 09-16-2021 14:27-0400 Heart rate 108 /min Bennett Weir MD Work Phone: [facility] 09-16-2021 14:27-0400 Respiratory rate 18 /min Bennett Weir MD Work Phone: [facility] 09-16-2021 14:27-0400 Systolic blood pressure 132 mm[Hg] Bennett Weir MD Work Phone: [facility] 08-30-2021 09:30-0400 Diastolic blood pressure 70 mm[Hg] Bennett Weir MD Work Phone: [facility] 08-30-2021 09:30-0400 Heart rate 107 /min Bennett Weir MD Work Phone: [facility] 08-30-2021 09:30-0400 Systolic blood pressure 120 mm[Hg] Bennett Weir MD Work Phone: [facility] Encounters Encounter Date Encounter Type Care Provider Facility Start: 07-10-2023 ambulatory Stacy mir RN Work Phone: Product Development Director Management Procedures Date Procedure Procedure Detail Performing Clinician Start: 12-23-2022 Radex foot complete minimum 3 views Gabriella Govea Work Phone: Start: 09-18-2022 Screening mammograph y bi 2-view breast inc cad Bennett Weir MD Work Phone: Start: 06-04-2022 Us soft tissue head & neck real time imge docm Della Farooq MD Work Phone: Start: 11-27-2021 Dxa bone density nagi dy 1/> sites axial skel Bennett Weir MD Work Phone: Plan of Treatment Date Care Activity Detail Author Start: 12-30-2032 Urine microalbumin profile [facility] Start: 06-24-2026 Diabetes Screening Diabetes Screenin [facility] Start: 01-20-2026 DIABETES SCREEN DIABETES SCREEN [facility] Start: 01-20-2026 Diabetes Screening Diabetes Screenin g [facility] Start: 07-01-2025 DIABETES SCREEN DIABETES SCREEN [facility] Start: 01-09-2025 DIABETES SCREEN DIABETES SCREEN [facility] Start: 08-30-2024 DIABETES SCREEN DIABETES SCREEN [facility] Start: 11-22-2023 SHINGRIX VACCINE (1 of 2) CHRISTENSEN GRIX VACCINE (1 of 2) [facility] Immunizations Immunization Date Immunization Notes Care Provider Fa cility 12-30-2022 TD(adult) unspecifie d formulation Shanice LUQUE Work Phone: [facility] Work Phone: 12-30-2022 tetanus and diphther ia toxoids, adsorbed, preservative free, for adult use (5 Lf of tetanus toxoid and 2 Lf of diphtheria toxoid) Shanice LUQUE Work Phone: [facility] 06-11-2017 influenza virus vaccine, unspecified formulation Gay Salomon RN Work Phone: [facility] 03-24-2016 pneumococcal conjuga te vaccine, 13 valent Mammography Coordinator [facility] 09-15-2012 tetanus toxoid, redu antonella diphtheria toxoid, and acellular pertussis vaccine, adsorbed Mammography Coordinator [facility] Work Phone: 03-25-2006 pneumococcal polysaccharide vaccine, 23 valent Mammography Coordinator [facility] 05-25-2000 tetanus and diphther ia toxoids, not adsorbed, for adult use Mammography Coordinator [facility] Work Phone: Payers Date Payer Category Payer Private Health Insurance [facility] AAR SUPPLEMENT [id number] 2013-Present [phone] [address] [place] [address] Indemnity [id number] 2013 Private Health Insurance [facility] AARP SUPPLEMENT [id number] 2013-Present [phone] [address] [place] [address] Indemnity [id number] 2013 Unknown [id number] 2003 Medicare MEDICARE MEDICAR E A AND B [id number] 2003-Present [phone] [place] [address] Medicare [id number] 2003 Medicare MEDICARE MEDICAR E A AND B [id number] 2003-Present [phone] [place] [address] Medicare [id number] 2003 Medicare [id number] Social History Date Type Detail Facility Start: 01-16-2011 Tobacco smoking stat [facility] Never smoked tobacco [facility] Start: 08-06-2021 End: 04-24-2023 Alcohol intake Current non-drinker of alcohol (finding) [facility] Start: 1940 Sex Assigned At Not on file [facility] Start: 08-03-2021 End: 02-18-2022 Exposure to SARS-CoV-2 (event) Not sure [facility] Start: 01-16-2011 Tobacco use and exposure Smokeless tobacco non-user [facility] Start: 11-21-2022 End: 06-12-2023 History of Social function [facility] Work Phone: Start: 11-21-2022 End: 06-12-2023 Tobacco use panel [facility] Work Phone: Adult Depression Screening Assessment 0 [facility] Work Phone: Start: 05-02-2020 Gender identity Identifies as female gender (finding) [facility] Start: 05-02-2020 Sexual orientation Heterosexual (fin ding) [facility] (I/We) worried wheth er (my/our) food would run out before (I/we) got money to buy more. Never true [facility] Work Phone: In the past 12 month s, was there a time when you were not able to pay the mortgage or rent on time? No [facility] Work Phone: Goals Date Patient Goal Desired Activity /State Personal health goal Personal health goal Clinical Notes 01-16-2014 to 07-10-2023 Stacy Mcduffie RN - 07/10/2023 8:04 AM Gay Solorzano RN - 05/01/2023 9:53 AM Bennett Sloan MD - 04/24/2023 11:29 AM Kirsten Figueroa, DO - 03/31/2023 8:39 AM EST Note Date & Type Note Facility 07-10-2023 Note Patient Outreach ([facility] [place]) DINAH NELSON ([id number]) 1940 F Date Time Provider Department 07/10/23 STACY [email or web address] During your visit today, we recorded the following information about you: Stacy Mcduffie RN 07/10/2023 11:11 AM Signed CDM Telephonic Outreach Provider Action/FYI monthly Contacted for: Routine Telephonic Outreach Contact made with patient: No, left message. Stacy Mcduffie RN July 10, 2023 11:11 AM Allergies As of Date: 07/10/2023 Noted Allergy Reaction LOVASTATIN 01/03/2015 17 - Myalgia Comments: Severe myalgia, gi upset, [id number] REDUCTASE INHIBIT*03/22/2015 17 - Myalgia CRESTOR (ROSUVASTATIN CALCIUM) 06/11/2012 14 - Other: See Comments Comments: Myalgia, weakness LIPITOR (ATORVASTATIN CALCIUM) 03/22/2015 17 - Myalgia BACTRIM (SULFAMETHOXAZOLE) 10/04/2009 Comments: ? Questionable- thinks may have had upset stomach due to Flagyl CIPRO (CIPROFLOXACIN) 10/03/2009 Comments: unsteady, near syncope FENOFIBRATE 09/03/2020 14 - Other: See Comments IVP DYE (IODINE) 04/09/2005 4 - Hives 7 - Swelling 12 - Shortness of Breath KEFLEX (CEPHALEXIN) 04/13/2005 2 - Rash Comments: Generalized red rash; also had some feeling of throat swelling but denied dyspnea or wheezing; Note IV tx Cefotaxime (3rd gen) without rash PENICILLINS 04/11/2005 12 - Shortness of Breath Date Reviewed: 04/24/2023 Reviewed by: Landry, Johanny E - Fully Assessed Reason for Visit: community monitoring outreach [Other] Cmt: CDM outreach telephonic Prescriptions as of 07/10/2023 - ezetimibe (ZETIA) 10 mg tablet Take 1 tablet by mouth once daily. Meds Comments as of 01/20/2023: 01/20/23 Patient reports no changes to current medications. 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9 [E66.9] 09/27/2018 Multiple thyroid nodules [E04.2] 11/08/2019 Essential hypertension [I10] 07/24/2020 PVD (peripheral vascular disease) with claudica*07/27/2020 Raynaud's phenomenon without gangrene [I73.00] 11/27/2020 Anxiety about health [R45.89] 08/30/2021 Polymyalgia rheumatica (HCC) [M35.3] 09/16/2021 07/23/2022 Synovitis of wrist [M65.9] 01/20/2022 07/23/2022 Encounter Status:Closed by STACY MCDUFFIE on 07/10/23 [facility] 07-10-2023 Note HNO ID: [id number] Author: STACY MCDUFFIE RN Service: ? Author Type: Registered Nurse Type: Progress Notes Filed: 07/10/2023 11:11 Note Text: CDM Telephonic Outreach Provider Action/FYI monthly Contacted for: Routine Telephonic Outreach Contact made with patient: No, left message. Stacy Mcduffie RN July 10, 2023 11:11 AM [facility] 07-10-2023 History of Presen t illness Narrative CD Telephonic Outreach Provider Action/FYI monthly Contacted for: Routine Telephonic Outreach Contact made with patient: No, left message. Stacy Mcduffie RN July 10, 2023 11:11 AM documented in this encounter [facility] 06-12-2023 Note HNO ID: [id number] Author: GAY SALOMON RN Service: ? Author Type: Registered Nurse Type: Progress Notes Filed: 06/12/2023 15:21 Note Text: [facility] Telephonic Outreach Provider Action/FYI Contacted for: Routine Telephonic Outreach Contact made with patient: Yes Patient identified by name and date of . Discussed care with patient Are you experiencing any new or worsening symptoms you need to talk about today? No Disease Specific Do you check your blood pressure at home? No Do you have new or worsening shortness of breath with activity? No Based on valve technician, the following disposition is advised: No symptoms or symptoms present, not severe. Routed to: No Action Needed JENA Education Provided this Outreach: No Gay Salomon RN June 12, 2023 3:14 PM [facility] 06-12-2023 Note Patient Outreach (AM [facility]) DINAH NELSON ([id number]) 1940 F Date Time Provider Department 06/12/23 GAY SALOMONG During your visit today, we recorded the following information about you: Gay Salomon, RN 06/12/2023 3:21 PM Signed [facility] Telephonic Outreach Provider Action/FYI Contacted for: Routine Telephonic Outreach Contact made with patient: Yes Patient identified by name and date of . Discussed care with patient Are you experiencing any new or worsening symptoms you need to talk about today? No Disease Specific Do you check your blood pressure at home? No Do you have new or worsening shortness of breath with activity? No Based on valve technician, the following disposition is advised: No symptoms or symptoms present, not severe. Routed to: No Action Needed JEAN Education Provided this Outreach: No Gay Salomon RN June 12, 2023 3:14 PM Allergies As of Date: 06/12/2023 Noted Allergy Reaction LOVASTATIN 01/03/2015 17 - Myalgia Comments: Severe myalgia, gi upset, [id number] REDUCTASE INHIBIT*03/22/2015 17 - Myalgia CRESTOR (ROSUVASTATIN CALCIUM) 06/11/2012 14 - Other: See Comments Comments: Myalgia, weakness LIPITOR (ATORVASTATIN CALCIUM) 03/22/2015 17 - Myalgia BACTRIM (SULFAMETHOXAZOLE) 10/04/2009 Comments: ? Questionable- thinks may have had upset stomach due to Flagyl CIPRO (CIPROFLOXACIN) 10/03/2009 Comments: unsteady, near syncope FENOFIBRATE 09/03/2020 14 - Other: See Comments IVP DYE (IODINE) 04/09/2005 4 - Hives 7 - Swelling 12 - Shortness of Breath KEFLEX (CEPHALEXIN) 04/13/2005 2 - Rash Comments: Generalized red rash; also had some feeling of throat swelling but denied dyspnea or wheezing; Note IV tx Cefotaxime (3rd gen) without rash PENICILLINS 04/11/2005 12 - Shortness of Breath Date Reviewed: 04/24/2023 Reviewed by: Johanny Landry E Di Fully Assessed Reason for Visit: Community Monitoring Outreach [Other] Meds Comments as of 01/20/2023: 01/20/23 Patient reports no changes to current medications. 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] 06/03/2005 02/22/2015 BENIGN NEOPLASM LG BOWEL [D12.6] 06/03/2005 Diverticulosis of colon (without mention of hem*06/03/2005 02/22/2015 Personal history of colonic polyps [Z86.010] 08/13/2009 02/22/2015 Diverticulitis [K57.92] 11/13/2009 04/15/2011 Diverticulosis [K57.90] 04/15/2011 03/24/2016 PMB (postmenopausal bleeding) [N95.0] 06/20/2011 03/24/2016 KOLTON favor benign [[id number]] 06/20/2011 03/24/2016 Hematuria [R31.9] 01/16/2014 02/22/2015 Mixed hyperlipidemia [E78.2] 03/24/2016 Atherosclerosis of arteries [I70.90] 03/24/2016 07/22/2022 Aortic valve sclerosis [I35.8] 03/24/2016 Chronic urticaria [L50.8] 03/04/2017 Obesity, Class I, BMI 30-34.9 [E66.9] 09/27/2018 Multiple thyroid nodules [E04.2] 11/08/2019 Essential hypertension [I10] 07/24/2020 PVD (peripheral vascular disease) with claudica*07/27/2020 Raynaud's phenomenon without gangrene [I73.00] 11/27/2020 Anxiety about health [R45.89] 08/30/2021 Polymyalgia rheumatica (HCC) [M35.3] 09/16/2021 07/23/2022 Synovitis of wrist [M65.9] 01/20/2022 07/23/2022 Encounter Status:Closed by GAY SALOMON on 06/12/23 [facility] 05-29-2023 Note HNO ID: [id number] Author: KINJAL SHEPPARD RN Service: ? Author Type: Registered Nurse Type: Progress Notes Filed: 05/29/2023 12:59 Note Text: CD Telephonic Outreach Provider Action/BINDUI [place] signal x2 Contacted for: Routine Telephonic Outreach Contact made with patient: No, unable to leave message. Will reattempt call Kinjal Sheppard RN May 29, 2023 12:58 PM [facility] 05-29-2023 Note Patient Outreach ([facility]) DINAH NELSON ([id number]) 1940 F Date Time Provider Department 05/29/23 KINJAL SHEPPARD During your visit today, we recorded the following information about you: Kinjal Sheppard RN 05/29/2023 12:59 PM Signed [facility] Telephonic Outreach Provider Action/MORENO [place] signal x2 Contacted for: Routine Telephonic Outreach Contact made with patient: No, unable to leave message. Will reattempt call Kinjal Sheppard RN May 29, 2023 12:58 PM Allergies As of Date: 05/29/2023 Noted Allergy Reaction LOVASTATIN 01/03/2015 17 - Myalgia Comments: Severe myalgia, gi upset, [id number] REDUCTASE INHIBIT*03/22/2015 17 - Myalgia CRESTOR (ROSUVASTATIN CALCIUM) 06/11/2012 14 - Other: See Comments Comments: Myalgia, weakness LIPITOR (ATORVASTATIN CALCIUM) 03/22/2015 17 - Myalgia BACTRIM (SULFAMETHOXAZOLE) 10/04/2009 Comments: ? Questionable- thinks may have had upset stomach due to Flagyl CIPRO (CIPROFLOXACIN) 10/03/2009 Comments: unsteady, near syncope FENOFIBRATE 09/03/2020 14 - Other: See Comments IVP DYE (IODINE) 04/09/2005 4 - Hives 7 - Swelling 12 - Shortness of Breath KEFLEX (CEPHALEXIN) 04/13/2005 2 - Rash Comments: Generalized red rash; also had some feeling of throat swelling but denied dyspnea or wheezing; Note IV tx Cefotaxime (3rd gen) without rash PENICILLINS 04/11/2005 12 - Shortness of Breath Date Reviewed: 04/24/2023 Reviewed by: Johanny Landry - Fully Assessed Reason for Visit: Community Monitoring Outreach [Other] Cmt: Follow up Meds Comments as of 01/20/2023: 01/20/23 Patient reports no changes to current medications. 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] 06/03/2005 02/22/2015 BENIGN NEOPLASM LG BOWEL [D12.6] 06/03/2005 Diverticulosis of colon (without mention of hem*06/03/2005 02/22/2015 Personal history of colonic polyps [Z86.010] 08/13/2009 02/22/2015 Diverticulitis [K57.92] 11/13/2009 04/15/2011 Diverticulosis [K57.90] 04/15/2011 03/24/2016 PMB (postmenopausal bleeding) [N95.0] 06/20/2011 03/24/2016 KOLTON favor benign [[id number]] 06/20/2011 03/24/2016 Hematuria [R31.9] 01/16/2014 02/22/2015 Mixed hyperlipidemia [E78.2] 03/24/2016 Atherosclerosis of arteries [I70.90] 03/24/2016 07/22/2022 Aortic valve sclerosis [I35.8] 03/24/2016 Chronic urticaria [L50.8] 03/04/2017 Obesity, Class I, BMI 30-34.9 [E66.9] 09/27/2018 Multiple thyroid nodules [E04.2] 11/08/2019 Essential hypertension [I10] 07/24/2020 PVD (peripheral vascular disease) with claudica*07/27/2020 Raynaud's phenomenon without gangrene [I73.00] 11/27/2020 Anxiety about health [R45.89] 08/30/2021 Polymyalgia rheumatica (HCC) [M35.3] 09/16/2021 07/23/2022 Synovitis of wrist [M65.9] 01/20/2022 07/23/2022 Encounter Status:Closed by KINJAL SHEPPARD on 05/29/23 [facility] 05-28-2023 Note Patient Outreach (AM [facility] [place]) DINAH NELSON ([id number]) 1940 F Date Time Provider Department 05/28/23 GAY SALOMON During your visit today, we recorded the following information about you: Gay Salomon RN 05/28/2023 1:06 PM Signed M Telephonic Outreach Provider Action/FYI Contacted for: Routine Telephonic Outreach Contact made with patient: No, unable to leave message. Will reattempt call Gay Salomon RN May 28, 2023 1:06 PM Allergies As of Date: 05/28/2023 Noted Allergy Reaction LOVASTATIN 01/03/2015 17 - Myalgia Comments: Severe myalgia, gi upset, [id number] REDUCTASE INHIBIT*03/22/2015 17 - Myalgia CRESTOR (ROSUVASTATIN CALCIUM) 06/11/2012 14 - Other: See Comments Comments: Myalgia, weakness LIPITOR (ATORVASTATIN CALCIUM) 03/22/2015 17 - Myalgia BACTRIM (SULFAMETHOXAZOLE) 10/04/2009 Comments: ? Questionable- thinks may have had upset stomach due to Flagyl CIPRO (CIPROFLOXACIN) 10/03/2009 Comments: unsteady, near syncope FENOFIBRATE 09/03/2020 14 - Other: See Comments IVP DYE (IODINE) 04/09/2005 4 - Hives 7 - Swelling 12 - Shortness of Breath KEFLEX (CEPHALEXIN) 04/13/2005 2 - Rash Comments: Generalized red rash; also had some feeling of throat swelling but denied dyspnea or wheezing; Note IV tx Cefotaxime (3rd gen) without rash PENICILLINS 04/11/2005 12 - Shortness of Breath Date Reviewed: 04/24/2023 Reviewed by: Johanny Landry - Fully Assessed Reason for Visit: Community Monitoring Outreach [Other] Cmt: CDM Follow Up Meds Comments as of 01/20/2023: 01/20/23 Patient reports no changes to current medications. 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] 06/03/2005 02/22/2015 BENIGN NEOPLASM LG BOWEL [D12.6] 06/03/2005 Diverticulosis of colon (without mention of hem*06/03/2005 02/22/2015 Personal history of colonic polyps [Z86.010] 08/13/2009 02/22/2015 Diverticulitis [K57.92] 11/13/2009 04/15/2011 Diverticulosis [K57.90] 04/15/2011 03/24/2016 PMB (postmenopausal bleeding) [N95.0] 06/20/2011 03/24/2016 KOLTON favor benign [[id number]] 06/20/2011 03/24/2016 Hematuria [R31.9] 01/16/2014 02/22/2015 Mixed hyperlipidemia [E78.2] 03/24/2016 Atherosclerosis of arteries [I70.90] 03/24/2016 07/22/2022 Aortic valve sclerosis [I35.8] 03/24/2016 Chronic urticaria [L50.8] 03/04/2017 Obesity, Class I, BMI 30-34.9 [E66.9] 09/27/2018 Multiple thyroid nodules [E04.2] 11/08/2019 Essential hypertension [I10] 07/24/2020 PVD (peripheral vascular disease) with claudica*07/27/2020 Raynaud's phenomenon without gangrene [I73.00] 11/27/2020 Anxiety about health [R45.89] 08/30/2021 Polymyalgia rheumatica (HCC) [M35.3] 09/16/2021 07/23/2022 Synovitis of wrist [M65.9] 01/20/2022 07/23/2022 Encounter Status:Closed by GAY SALOMON on 05/28/23 [facility] 05-28-2023 Note HNO ID: [id number] Author: GAY SALOMON RN Service: ? Author Type: Registered Nurse Type: Progress Notes Filed: 05/28/2023 13:06 Note Text: [facility] Telephonic Outreach Provider Action/FYI Contacted for: Routine Telephonic Outreach Contact made with patient: No, unable to leave message. Will reattempt call Gay Salomon RN May 28, 2023 1:06 PM [facility] 05-01-2023 Note Patient Outreach (AM [facility] [place]) DINAH NELSON ([id number]) 1940 F Date Time Provider Department 05/01/23 GAY SALOMON [facility] During your visit today, we recorded the following information about you: Gay Salomon RN 05/01/2023 9:58 AM Signed [facility] Telephonic Outreach Provider Action/FYI Contacted for: Routine Telephonic Outreach Contact made with patient: Yes Patient identified by name and date of . Discussed care with patient Are you experiencing any new or worsening symptoms you need to talk about today? No Disease Specific Do you check your blood pressure at home? Yes, Enter readings: 123/72 Do you have new or worsening shortness of breath with activity? No Based on valve technician, the following disposition is advised: No symptoms or symptoms present, not severe. Routed to: No Action Needed JENA Education Provided this Outreach: No aGy Salomon RN May 01, 2023 9:57 AM Allergies As of Date: 05/01/2023 Noted Allergy Reaction LOVASTATIN 01/03/2015 17 - Myalgia Comments: Severe myalgia, gi upset, [id number] REDUCTASE INHIBIT*03/22/2015 17 - Myalgia CRESTOR (ROSUVASTATIN CALCIUM) 06/11/2012 14 - Other: See Comments Comments: Myalgia, weakness LIPITOR (ATORVASTATIN CALCIUM) 03/22/2015 17 - Myalgia BACTRIM (SULFAMETHOXAZOLE) 10/04/2009 Comments: ? Questionable- thinks may have had upset stomach due to Flagyl CIPRO (CIPROFLOXACIN) 10/03/2009 Comments: unsteady, near syncope FENOFIBRATE 09/03/2020 14 - Other: See Comments IVP DYE (IODINE) 04/09/2005 4 - Hives 7 - Swelling 12 - Shortness of Breath KEFLEX (CEPHALEXIN) 04/13/2005 2 - Rash Comments: Generalized red rash; also had some feeling of throat swelling but denied dyspnea or wheezing; Note IV tx Cefotaxime (3rd gen) without rash PENICILLINS 04/11/2005 12 - Shortness of Breath Date Reviewed: 04/24/2023 Reviewed by: Johanny Landry - Fully Assessed Reason for Visit: Community Monitoring Outreach [Other] Cmt: CDM Follow Up Prescriptions as of 05/01/2023 - meloxicam (MOBIC) 15 mg tablet Take 1 tablet by mouth once daily for 15 days. With food. Meds Comments as of 01/20/2023: 01/20/23 Patient reports no changes to current medications. 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] 06/03/2005 02/22/2015 BENIGN NEOPLASM LG BOWEL [D12.6] 06/03/2005 Diverticulosis of colon (without mention of hem*06/03/2005 02/22/2015 Personal history of colonic polyps [Z86.010] 08/13/2009 02/22/2015 Diverticulitis [K57.92] 11/13/2009 04/15/2011 Diverticulosis [K57.90] 04/15/2011 03/24/2016 PMB (postmenopausal bleeding) [N95.0] 06/20/2011 03/24/2016 KOLTON favor benign [[id number]] 06/20/2011 03/24/2016 Hematuria [R31.9] 01/16/2014 02/22/2015 Mixed hyperlipidemia [E78.2] 03/24/2016 Atherosclerosis of arteries [I70.90] 03/24/2016 07/22/2022 Aortic valve sclerosis [I35.8] 03/24/2016 Chronic urticaria [L50.8] 03/04/2017 Obesity, Class I, BMI 30-34.9 [E66.9] 09/27/2018 Multiple thyroid nodules [E04.2] 11/08/2019 Essential hypertension [I10] 07/24/2020 PVD (peripheral vascular disease) with claudica*07/27/2020 Raynaud's phenomenon without gangrene [I73.00] 11/27/2020 Anxiety about health [F41.8] 08/30/2021 Polymyalgia rheumatica (HCC) [M35.3] 09/16/2021 07/23/2022 Synovitis of wrist [M65.9] 01/20/2022 07/23/2022 Encounter Status:Closed by GAY SALOMON on 05/01/23 [facility] 05-01-2023 Note HNO ID: [id number] Author: Gay Salomon, RN Service: ? Author Type: Registered Nurse Type: Progress Notes Filed: 05/01/2023 9:58 AM Note Text: CDM Telephonic Outreach Provider Action/FYI Contacted for: Routine Telephonic Outreach Contact made with patient: Yes Patient identified by name and date of . Discussed care with patient Are you experiencing any new or worsening symptoms you need to talk about today? No Disease Specific Do you check your blood pressure at home? Yes, Enter readings: 123/72 Do you have new or worsening shortness of breath with activity? No Based on valve technician, the following disposition is advised: No symptoms or symptoms present, not severe. Routed to: No Action Needed JENA Education Provided this Outreach: No Gay Salomon RN May 01, 2023 9:57 AM [facility] 05-01-2023 History of Presen t illness Narrative [facility] Telephonic Outreach Provider Action/FYI Contacted for: Routine Telephonic Outreach Contact made with patient: Yes Patient identified by name and date of . Discussed care with patient Are you experiencing any new or worsening symptoms you need to talk about today? No Disease Specific Do you check your blood pressure at home? Yes, Enter readings: 123/72 Do you have new or worsening shortness of breath with activity? No Based on valve technician, the following disposition is advised: No symptoms or symptoms present, not severe. Routed to: No Action Needed JENA Education Provided this Outreach: No Gay Salomon RN May 01, 2023 9:57 AM documented in this encounter [facility] 04-24-2023 Note HNO ID: [id number] Author: Bennett Weir MD Service: ? Author Type: Physician Type: Progress Notes Filed: 04/25/2023 10:23 AM Note Text: This note was created using [employer]. Subjective Dinah Nelson is a 82 year old female here with her daughter. Her hypertension was controlled without medication. She saw vascular medicine and medical treatment of her peripheral vascular disease was recommended. She had not tolerated multiple statins in the past and was anxious on starting any kind of cholesterol lowering medication. She had been doing more yard work, raking 2 weeks ago, and developed right knee pain, aggravated by movement, but most bothersome at night. She did not recall specific injury. Tylenol was not helping. Review of Systems Constitutional: Negative for fatigue, fever and unexpected weight change. Respiratory: Negative for cough and shortness of breath. Cardiovascular: Negative for chest pain, palpitations and leg swelling. Musculoskeletal: Negative for gait problem. Neurological: Negative for dizziness and headaches. ACTIVE PROBLEM LIST Benign Neoplasm of Colon Mixed Hyperlipidemia Aortic Valve Sclerosis Chronic Urticaria Obesity, Class I, Bmi 30-34.9 Multiple Thyroid Nodules Essential Hypertension Pvd (Peripheral Vascular Disease) With Claudication (Hcc) Raynaud's Phenomenon Without Gangrene Anxiety About Health No current outpatient medications on file. No current facility-administered medications for this visit. Objective BP 130/60 (BP Site: Left Arm, BP Position: Sitting, BP Cuff Size: Large Adult) Pulse 92 Temp 37.1 ?C (98.8 ?F) Resp 12 Ht 157.5 cm (5' 2 ) Wt 71.7 kg (158 lb) SpO2 97% BMI 28.90 kg/m? Physical Exam Constitutional: Appearance: She is not ill-appearing. Cardiovascular: Rate and Rhythm: Normal rate and regular rhythm. Heart sounds: No murmur heard. No gallop. Comments: Faint RUBIN LSB. Pulmonary: Effort: No respiratory distress. Breath sounds: No rales. Musculoskeletal: Right hip: No deformity or tenderness. Normal range of motion. Right knee: Swelling present. No deformity, effusion or crepitus. Normal range of motion. Tenderness present over the medial joint line. Normal meniscus. Right lower leg: No edema. Left lower leg: No edema. Neurological: General: No focal deficit present. Mental Status: She is alert. Gait: Gait normal. Assessment and Plan 1. Acute pain of right knee - ICD9: 719.46, ICD10: M25.561 (primary diagnosis) Likely degenerative joint disease. I doubt xray will add much. - MELOXICAM 15 MG TABLET. Discussed medication dosage, usage, goals of therapy, and side effects. 2. Essential hypertension - ICD9: 401.9, ICD10: I10 - Controlled - Encouraged sodium restriction, DASH or Mediterranean diet - BASIC METABOLIC PNL 3. Multiple thyroid nodules - ICD9: 241.1, ICD10: E04.2 Annual thyroid US next due 2023. 4. Mixed hyperlipidemia - ICD9: 272.2, ICD10: E78.2 - Uncontrolled - Shared medical decision making was done with discussions on ezetimibe, ezetimibe with bempedoic acid, bempedoic acid, and injectables. - LIPID PANEL BASIC - She was open to trying ezetimibe once results confirm persistent elevation of lipids. 5. Aortic valve sclerosis - ICD9: 424.1, ICD10: I35.8 Asymptomatic. Bennett Weir MD [facility] 04-24-2023 History of Presen t illness Narrative This note was created using [employer]. Subjective Dinah Nelson is a 82 year old female here with her daughter. Her hypertension was controlled without medication. She saw vascular medicine and medical treatment of her peripheral vascular disease was recommended. She had not tolerated multiple statins in the past and was anxious on starting any kind of cholesterol lowering medication. She had been doing more yard work, raking 2 weeks ago, and developed right knee pain, aggravated by movement, but most bothersome at night. She did not recall specific injury. Tylenol was not helping. Review of Systems Constitutional: Negative for fatigue, fever and unexpected weight change. Respiratory: Negative for cough and shortness of breath. Cardiovascular: Negative for chest pain, palpitations and leg swelling. Musculoskeletal: Negative for gait problem. Neurological: Negative for dizziness and headaches. ACTIVE PROBLEM LIST Benign Neoplasm of Colon Mixed Hyperlipidemia Aortic Valve Sclerosis Chronic Urticaria Obesity, Class I, Bmi 30-34.9 Multiple Thyroid Nodules Essential Hypertension Pvd (Peripheral Vascular Disease) With Claudication (Hcc) Raynaud's Phenomenon Without Gangrene Anxiety About Health No current outpatient medications on file. No current facility-administered medications for this visit. Objective BP 130/60 (BP Site: Left Arm, BP Position: Sitting, BP Cuff Size: Large Adult) Pulse 92 Temp 37.1 C (98.8 F) Resp 12 Ht 157.5 cm (5' 2 ) Wt 71.7 kg (158 lb) SpO2 97% BMI 28.90 kg/m Physical Exam Constitutional: Appearance: She is not ill-appearing. Cardiovascular: Rate and Rhythm: Normal rate and regular rhythm. Heart sounds: No murmur heard. No gallop. Comments: Faint RUBIN LSB. Pulmonary: Effort: No respiratory distress. Breath sounds: No rales. Musculoskeletal: Right hip: No deformity or tenderness. Normal range of motion. Right knee: Swelling present. No deformity, effusion or crepitus. Normal range of motion. Tenderness present over the medial joint line. Normal meniscus. Right lower leg: No edema. Left lower leg: No edema. Neurological: General: No focal deficit present. Mental Status: She is alert. Gait: Gait normal. Assessment and Plan 1. Acute pain of right knee - ICD9: 719.46, ICD10: M25.561 (primary diagnosis) Likely degenerative joint disease. I doubt xray will add much. - MELOXICAM 15 MG TABLET. Discussed medication dosage, usage, goals of therapy, and side effects. 2. Essential hypertension - ICD9: 401.9, ICD10: I10 - Controlled - Encouraged sodium restriction, DASH or Mediterranean diet - BASIC METABOLIC PNL 3. Multiple thyroid nodules - ICD9: 241.1, ICD10: E04.2 Annual thyroid US next due 2023. 4. Mixed hyperlipidemia - ICD9: 272.2, ICD10: E78.2 - Uncontrolled - Shared medical decision making was done with discussions on ezetimibe, ezetimibe with bempedoic acid, bempedoic acid, and injectables. - LIPID PANEL BASIC - She was open to trying ezetimibe once results confirm persistent elevation of lipids. 5. Aortic valve sclerosis - ICD9: 424.1, ICD10: I35.8 Asymptomatic. Bennett Weir MD documented in this encounter [facility] 03-31-2023 Note HNO ID: [id number] Author: Kirsten Leon, DO Service: ? Author Type: Physician Type: Progress Notes Filed: 04/13/2023 3:39 PM Note Text: [facility] [place] DEPARTMENT OF VASCULAR SURGERY OUTPATIENT VISIT DATE March 31, 2023 OUTPATIENT VISIT TYPE ESTABLISHED SERVICE DATE: 03/31/2023 SERVICE TIME: 8:39 AM PRIMARY CARE PHYSICIAN: Bennett Weir MD HISTORY OF PRESENT ILLNESS: Ms. Nelson is a 82 year old female who presents today for a vascular surgery follow-up visit regarding peripheral arterial disease. She denies any complaints. Denies lifestyle limiting claudication. She is very active in the yard. PAST MEDICAL HISTORY Diagnosis Date Aortic valve sclerosis 03/24/2016 Atherosclerosis of arteries 03/24/2016 Benign meningioma of brain (HCC) 11/08/2019 Benign neoplasm of colon Benign neoplasm of stomach Cataract Both eyes COVID-19 05/07/2022 Diverticulitis Diverticulosis 04/15/2011 Dysplasia of cervix 1988 Esophageal reflux Lipoma of skin and subcutaneous tissue of neck 11/08/2019 right posterior neck Mixed hyperlipidemia 03/24/2016 Polymyalgia rheumatica (HCC) 09/16/2021 PVD (peripheral vascular disease) with claudication (HCC) 07/27/2020 Raynaud's phenomenon without gangrene 11/27/2020 Thyroid nodule 11/08/2019 Unspecified hypothyroidism PAST SURGICAL HISTORY Procedure Laterality Date APPENDECTOMY BIOPSY CERVIX SINGLE/MULT/EXCISION OF LESION SPX CATARACT SURGERY, COMPLEX 2010 CHOLECYSTECTOMY Cholecystectomy COLONOSCOPY FLX DX W/COLLJ SPEC WHEN PFRMD 06/03/05 Colonoscopy with bx COLONOSCOPY FLX DX W/COLLJ SPEC WHEN PFRMD 06/03/05 Colonoscopy with polypectomy COLONOSCOPY FLX DX W/COLLJ SPEC WHEN PFRMD 08/13/2009 Colonoscopy-repeat in 3 years (-2012) COLSC FLX W/RMVL OF TUMOR POLYP LESION SNARE TQ 11/07/14 hyperplastic polyp - 5 year follow up - h/o polyps ESOPHAGOGASTRODUODENOSCOPY TRANSORAL DIAGNOSTIC 05/30/05 EGD LAPAROSCOPIC HEMICOLECTOMY Right 2006 LEEP 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 ALLERGIES: ALLERGIES Allergen Reactions Lovastatin Myalgia Severe myalgia, gi upset, Suqdtrg-Hsl-Olo Red* Myalgia Crestor [Rosuvastat* Other: See Comments Myalgia, weakness Lipitor [Atorvastat* Myalgia Bactrim [Sulfametho* ? Questionable- thinks may have had upset stomach due to Flagyl Cipro [Ciprofloxaci* unsteady, near syncope Fenofibrate Other: See Comments Ivp Dye [Iodine] Hives, Swelling, Shortness of Breath Keflex [Cephalexin] Rash Generalized red rash; also had some feeling of throat swelling but denied dyspnea or wheezing; Note IV tx Cefotaxime (3rd gen) without rash Penicillins Shortness of Breath PHYSICAL EXAM: BP 114/67 (BP Site: Right Arm, BP Position: Sitting, BP Cuff Size: Extra Large Adult) Pulse 85 SpO2 99% Gen- no distress Ext- non palpable distal pulses on left, small varicose veins and spider viens Diagnostic tests reviewed for today's visit: Most recent labs Most recent imaging PVRs- unchanged IMPRESSION: Ms. Nelson is a 82 year old female with peripheral arterial disease and non-lifestyle limiting claudication . PLAN and RECOMMENDATIONS: Doing well Follow up in one year Continue non-interventional therapy SIGNATURE: Kirsten Leon DO PATIENT NAME: Dinah Nelson DATE: March 31, 2023 TIME: 8:39 AM [facility] 03-31-2023 History of Presen t illness Narrative Images from the original note were not included. [facility] [place] DEPARTMENT OF VASCULAR SURGERY OUTPATIENT VISIT DATE March 31, 2023 OUTPATIENT VISIT TYPE ESTABLISHED SERVICE DATE: 03/31/2023 SERVICE TIME: 8:39 AM PRIMARY CARE PHYSICIAN: Bennett Weir MD HISTORY OF PRESENT ILLNESS: Ms. Nelson is a 82 year old female who presents today for a vascular surgery follow-up visit regarding peripheral arterial disease. She denies any complaints. Denies lifestyle limiting claudication. She is very active in the yard. PAST MEDICAL HISTORY Diagnosis Date Aortic valve sclerosis 03/24/2016 Atherosclerosis of arteries 03/24/2016 Benign meningioma of brain (HCC) 11/08/2019 Benign neoplasm of colon Benign neoplasm of stomach Cataract Both eyes COVID-19 05/07/2022 Diverticulitis Diverticulosis 04/15/2011 Dysplasia of cervix 1989 Esophageal reflux Lipoma of skin and subcutaneous tissue of neck 11/08/2019 right posterior neck Mixed hyperlipidemia 03/24/2016 Polymyalgia rheumatica (HCC) 09/16/2021 PVD (peripheral vascular disease) with claudication (HCC) 07/27/2020 Raynaud's phenomenon without gangrene 11/27/2020 Thyroid nodule 11/08/2019 Unspecified hypothyroidism PAST SURGICAL HISTORY Procedure Laterality Date APPENDECTOMY BIOPSY CERVIX SINGLE/MULT/EXCISION OF LESION SPX CATARACT SURGERY, COMPLEX 2010 CHOLECYSTECTOMY Cholecystectomy COLONOSCOPY FLX DX W/COLLJ SPEC WHEN PFRMD 06/03/05 Colonoscopy with bx COLONOSCOPY FLX DX W/COLLJ SPEC WHEN PFRMD 06/03/05 Colonoscopy with polypectomy COLONOSCOPY FLX DX W/COLLJ SPEC WHEN PFRMD 08/13/2009 Colonoscopy-repeat in 3 years (-2012) COLSC FLX W/RMVL OF TUMOR POLYP LESION SNARE TQ 11/07/14 hyperplastic polyp - 5 year follow up - h/o polyps ESOPHAGOGASTRODUODENOSCOPY TRANSORAL DIAGNOSTIC 05/30/05 EGD LAPAROSCOPIC HEMICOLECTOMY Right 2006 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 ALLERGIES: ALLERGIES Allergen Reactions Lovastatin Myalgia Severe myalgia, gi upset, Pyxkzul-Kqs-Nve Red* Myalgia Crestor [Rosuvastat* Other: See Comments Myalgia, weakness Lipitor [Atorvastat* Myalgia Bactrim [Sulfametho* ? Questionable- thinks may have had upset stomach due to Flagyl Cipro [Ciprofloxaci* unsteady, near syncope Fenofibrate Other: See Comments Ivp Dye [Iodine] Hives, Swelling, Shortness of Breath Keflex [Cephalexin] Rash Generalized red rash; also had some feeling of throat swelling but denied dyspnea or wheezing; Note IV tx Cefotaxime (3rd gen) without rash Penicillins Shortness of Breath PHYSICAL EXAM: BP 114/67 (BP Site: Right Arm, BP Position: Sitting, BP Cuff Size: Extra Large Adult) Pulse 85 SpO2 99% Gen- no distress Ext- non palpable distal pulses on left, small varicose veins and spider viens Diagnostic tests reviewed for today's visit: Most recent labs Most recent imaging PVRs- unchanged IMPRESSION: Ms. Nelson is a 82 year old female with peripheral arterial disease and non-lifestyle limiting claudication . PLAN and RECOMMENDATIONS: Doing well Follow up in one year Continue non-interventional therapy SIGNATURE: Kirsten Leon DO PATIENT NAME: Dinah Nelson DATE: March 31, 2023 TIME: 8:39 AM documented in this encounter [facility] 03-16-2023 Note Patient Outreach ([facility] [place]) DINAH NELSON ([id number]) 1940 F Date Time Provider Department 03/16/23 GAY SALOMON [facility] During your visit today, we recorded the following information about you: Gay Salomon, RN 03/16/2023 12:14 PM Signed CDM Telephonic Outreach Provider Action/FYI Contacted for: Routine Telephonic Outreach Contact made with patient: Yes Patient identified by name and date of . Discussed care with patient Are you experiencing any new or worsening symptoms you need to talk about today? No Disease Specific Do you check your blood pressure at home? Yes, Enter readings: 130/72 Do you have new or worsening shortness of breath with activity? No Based on valve technician, the following disposition is advised: No symptoms or symptoms present, not severe. Routed to: No Action Needed JENA Education Provided this Outreach: No Gay Salomon RN March 16, 2023 12:12 PM Allergies As of Date: 03/16/2023 Noted Allergy Reaction LOVASTATIN 01/03/2015 17 - Myalgia Comments: Severe myalgia, gi upset, [id number] REDUCTASE INHIBIT*03/22/2015 17 - Myalgia CRESTOR (ROSUVASTATIN CALCIUM) 06/11/2012 14 - Other: See Comments Comments: Myalgia, weakness LIPITOR (ATORVASTATIN CALCIUM) 03/22/2015 17 - Myalgia BACTRIM (SULFAMETHOXAZOLE) 10/04/2009 Comments: ? Questionable- thinks may have had upset stomach due to Flagyl CIPRO (CIPROFLOXACIN) 10/03/2009 Comments: unsteady, near syncope FENOFIBRATE 09/03/2020 14 - Other: See Comments IVP DYE (IODINE) 04/09/2005 4 - Hives 7 - Swelling 12 - Shortness of Breath KEFLEX (CEPHALEXIN) 04/13/2005 2 - Rash Comments: Generalized red rash; also had some feeling of throat swelling but denied dyspnea or wheezing; Note IV tx Cefotaxime (3rd gen) without rash PENICILLINS 04/11/2005 12 - Shortness of Breath Date Reviewed: 01/20/2023 Reviewed by: Tamiko Quinn APRN.DEPARTMENT STORE DOOR GREETER - Fully Assessed Reason for Visit: Community Monitoring Outreach [Other] Cmt: CDM Follow Up Meds Comments as of 01/20/2023: 01/20/23 Patient reports no changes to current medications. 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] 06/03/2005 02/22/2015 BENIGN NEOPLASM LG BOWEL [D12.6] 06/03/2005 Diverticulosis of colon (without mention of hem*06/03/2005 02/22/2015 Personal history of colonic polyps [Z86.010] 08/13/2009 02/22/2015 Diverticulitis [K57.92] 11/13/2009 04/15/2011 Diverticulosis [K57.90] 04/15/2011 03/24/2016 PMB (postmenopausal bleeding) [N95.0] 06/20/2011 03/24/2016 KOLTON favor benign [[id number]] 06/20/2011 03/24/2016 Hematuria [R31.9] 01/16/2014 02/22/2015 Mixed hyperlipidemia [E78.2] 03/24/2016 Atherosclerosis of arteries [I70.90] 03/24/2016 07/22/2022 Aortic valve sclerosis [I35.8] 03/24/2016 Chronic urticaria [L50.8] 03/04/2017 Obesity, Class I, BMI 30-34.9 [E66.9] 09/27/2018 Multiple thyroid nodules [E04.2] 11/08/2019 Essential hypertension [I10] 07/24/2020 PVD (peripheral vascular disease) with claudica*07/27/2020 Raynaud's phenomenon without gangrene [I73.00] 11/27/2020 Anxiety about health [F41.8] 08/30/2021 Polymyalgia rheumatica (HCC) [M35.3] 09/16/2021 07/23/2022 Synovitis of wrist [M65.9] 01/20/2022 07/23/2022 Encounter Status:Closed by GAY SALOMON on 03/16/23 [facility] 03-16-2023 Note HNO ID: [id number] Author: Gay Salomon RN Service: ? Author Type: Registered Nurse Type: Progress Notes Filed: 03/16/2023 12:14 PM Note Text: [facility] Telephonic Outreach Provider Action/FYI Contacted for: Routine Telephonic Outreach Contact made with patient: Yes Patient identified by name and date of . Discussed care with patient Are you experiencing any new or worsening symptoms you need to talk about today? No Disease Specific Do you check your blood pressure at home? Yes, Enter readings: 130/72 Do you have new or worsening shortness of breath with activity? No Based on valve technician, the following disposition is advised: No symptoms or symptoms present, not severe. Routed to: No Action Needed JENA Education Provided this Outreach: No Gay Salomon RN March 16, 2023 12:12 PM [facility] 03-16-2023 History of Presen t illness Narrative [facility] Telephonic Outreach Provider Action/FYI Contacted for: Routine Telephonic Outreach Contact made with patient: Yes Patient identified by name and date of . Discussed care with patient Are you experiencing any new or worsening symptoms you need to talk about today? No Disease Specific Do you check your blood pressure at home? Yes, Enter readings: 130/72 Do you have new or worsening shortness of breath with activity? No Based on valve technician, the following disposition is advised: No symptoms or symptoms present, not severe. Routed to: No Action Needed JENA Education Provided this Outreach: No Gay Salomon RN March 16, 2023 12:12 PM documented in this encounter [facility] 02-10-2023 Note HNO ID: [id number] Author: Gay Salomon RN Service: ? Author Type: Registered Nurse Type: Progress Notes Filed: 02/10/2023 10:24 AM Note Text: CD Telephonic Outreach Provider Action/FYI Contacted for: Routine Telephonic Outreach Contact made with patient: Yes Patient identified by name and date of . Discussed care with patient Are you experiencing any new or worsening symptoms you need to talk about today? No Disease Specific Do you check your blood pressure at home? Yes, Enter readings: 129/78 Do you have new or worsening shortness of breath with activity? No Based on valve technician, the following disposition is advised: No symptoms or symptoms present, not severe. Routed to: No Action Needed JENA Education Provided this Outreach: No No questions, concerns, needs at this time. Gay Salomon RN February 10, 2023 10:23 AM [facility] 02-09-2023 Note HNO ID: [id number] Author: Gay Salomon RN Service: ? Author Type: Registered Nurse Type: Progress Notes Filed: 02/10/2023 10:24 AM Note Text: [facility] Telephonic Outreach Provider Action/FYI Contacted for: Routine Telephonic Outreach Contact made with patient: No, unable to leave message. Will reattempt call Gya Salomon RN February 09, 2023 1:17 PM [facility] 02-09-2023 Note Patient Outreach ([facility] [place]) DINAH NELSON ([id number]) 1940 F Date Time Provider Department 02/09/23 GAY SALOMONTommy During your visit today, we recorded the following information about you: Gay Salomon RN 02/10/2023 10:24 AM Signed [facility] Telephonic Outreach Provider Ramonita/FYHamlet Contacted for: Routine Telephonic Outreach Contact made with patient: No, unable to leave message. Will reattempt call Gay Salomon RN February 09, 2023 1:17 PM Gay Salomon RN 02/10/2023 10:24 AM Signed [facility] Telephonic Outreach Provider Action/FYI Contacted for: Routine Telephonic Outreach Contact made with patient: Yes Patient identified by name and date of . Discussed care with patient Are you experiencing any new or worsening symptoms you need to talk about today? No Disease Specific Do you check your blood pressure at home? Yes, Enter readings: 129/78 Do you have new or worsening shortness of breath with activity? No Based on valve technician, the following disposition is advised: No symptoms or symptoms present, not severe. Routed to: No Action Needed JENA Education Provided this Outreach: No No questions, concerns, needs at this time. Gay Salomon RN February 10, 2023 10:23 AM Allergies As of Date: 02/09/2023 Noted Allergy Reaction LOVASTATIN 01/03/2015 17 - Myalgia Comments: Severe myalgia, gi upset, LWPIATE-LWW-EUP REDUCTASE INHIBIT*03/22/2015 17 - Myalgia CRESTOR (ROSUVASTATIN CALCIUM) 06/11/2012 14 - Other: See Comments Comments: Myalgia, weakness LIPITOR (ATORVASTATIN CALCIUM) 03/22/2015 17 - Myalgia BACTRIM (SULFAMETHOXAZOLE) 10/04/2009 Comments: ? Questionable- thinks may have had upset stomach due to Flagyl CIPRO (CIPROFLOXACIN) 10/03/2009 Comments: unsteady, near syncope FENOFIBRATE 09/03/2020 14 - Other: See Comments IVP DYE (IODINE) 04/09/2005 4 - Hives 7 - Swelling 12 - Shortness of Breath KEFLEX (CEPHALEXIN) 04/13/2005 2 - Rash Comments: Generalized red rash; also had some feeling of throat swelling but denied dyspnea or wheezing; Note IV tx Cefotaxime (3rd gen) without rash PENICILLINS 04/11/2005 12 - Shortness of Breath Date Reviewed: 01/20/2023 Reviewed by: Tamiko Quinn APRN.DEPARTMENT STORE DOOR GREETER - Fully Assessed Reason for Visit: Community Monitoring Outreach [Other] Cmt: CDM Follow Up Meds Comments as of 01/20/2023: 01/20/23 Patient reports no changes to current medications. 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] 06/03/2005 02/22/2015 BENIGN NEOPLASM LG BOWEL [D12.6] 06/03/2005 Diverticulosis of colon (without mention of hem*06/03/2005 02/22/2015 Personal history of colonic polyps [Z86.010] 08/13/2009 02/22/2015 Diverticulitis [K57.92] 11/13/2009 04/15/2011 Diverticulosis [K57.90] 04/15/2011 03/24/2016 PMB (postmenopausal bleeding) [N95.0] 06/20/2011 03/24/2016 KOLTON favor benign [[id number]] 06/20/2011 03/24/2016 Hematuria [R31.9] 01/16/2014 02/22/2015 Mixed hyperlipidemia [E78.2] 03/24/2016 Atherosclerosis of arteries [I70.90] 03/24/2016 07/22/2022 Aortic valve sclerosis [I35.8] 03/24/2016 Chronic urticaria [L50.8] 03/04/2017 Obesity, Class I, BMI 30-34.9 [E66.9] 09/27/2018 Multiple thyroid nodules [E04.2] 11/08/2019 Essential hypertension [I10] 07/24/2020 PVD (peripheral vascular disease) with claudica*07/27/2020 Raynaud's phenomenon without gangrene [I73.00] 11/27/2020 Anxiety about health [F41.8] 08/30/2021 Polymyalgia rheumatica (HCC) [M35.3] 09/16/2021 07/23/2022 Synovitis of wrist [M65.9] 01/20/2022 07/23/2022 Encounter Status:Closed by GAY SALOMON on 02/10/23 [facility] 01-20-2023 Note HNO ID: [id number] Author: Tamiko Quinn APRN.DEPARTMENT STORE DOOR GREETER Service: ? Author Type: Nurse Practitioner Type: Progress Notes Filed: 01/20/2023 3:14 PM Note Text: CC Patient presents with: Diarrhea HPI Dinah Nelson is a 82 year old female who presents with diarrhea for 1 WEEK(S) Diarrhea is described as profuse watery occuring 2-5 stools/day on average. Associated with nausea and decreased appetite. Denies: vomiting, abdominal pain, bloating, heartburn/reflux, black/bloody stools, constipation She ate a taco salad from [employer] the night before onset of symptoms and a family reunion the week before but no else is sick. She also had to clean up after a raw sewage leak two days prior to onset. Otherwise denies recent antibiotic use, foreign travel, sick contacts. No history of bowel issues. She has had a hemicolectomy and cholecystectomy. Last colonoscopy was 2014. Treatments: None ROS General: reports intermittent lightheadedness and chills. denies body aches, malaise, weakness, dizziness, weight loss, fever, headaches, night sweats, syncope, feeling faint CV: denies rapid heart rate, edema Resp: denies SOB : denies dark/concentrated urine or decreased urine output PAST MEDICAL HISTORY Diagnosis Date Aortic valve sclerosis 03/24/2016 Atherosclerosis of arteries 03/24/2016 Benign meningioma of brain (HCC) 11/08/2019 Benign neoplasm of colon Benign neoplasm of stomach Cataract Both eyes COVID-19 05/07/2022 Diverticulitis Diverticulosis 04/15/2011 Dysplasia of cervix 1989 Esophageal reflux Lipoma of skin and subcutaneous tissue of neck 11/08/2019 right posterior neck Mixed hyperlipidemia 03/24/2016 Polymyalgia rheumatica (HCC) 09/16/2021 PVD (peripheral vascular disease) with claudication (HCC) 07/27/2020 Raynaud's phenomenon without gangrene 11/27/2020 Thyroid nodule 11/08/2019 Unspecified hypothyroidism PAST SURGICAL HISTORY Procedure Laterality Date APPENDECTOMY BIOPSY CERVIX SINGLE/MULT/EXCISION OF LESION SPX CATARACT SURGERY, COMPLEX 2010 CHOLECYSTECTOMY Cholecystectomy COLONOSCOPY FLX DX W/COLLJ SPEC WHEN PFRMD 06/03/05 Colonoscopy with bx COLONOSCOPY FLX DX W/COLLJ SPEC WHEN PFRMD 06/03/05 Colonoscopy with polypectomy COLONOSCOPY FLX DX W/COLLJ SPEC WHEN PFRMD 08/13/2009 Colonoscopy-repeat in 3 years (3-2012) COLSC FLX W/RMVL OF TUMOR POLYP LESION SNARE TQ 11/07/14 hyperplastic polyp - 5 year follow up - h/o polyps ESOPHAGOGASTRODUODENOSCOPY TRANSORAL DIAGNOSTIC 05/30/05 EGD LAPAROSCOPIC HEMICOLECTOMY Right 2006 LEEP 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 FAMILY HISTORY Problem Relation Age of Onset Heart Mother Stroke Mother Heart Father heart attack Social History Tobacco Use Smoking status: Never Smokeless tobacco: Never Vaping Use Vaping Use: Never used Substance Use Topics Alcohol use: No Drug use: No PHYSICAL EXAM BP 134/76 Pulse 96 Temp 37.2 ?C (98.9 ?F) (Temporal) Resp 14 Wt 73 kg (161 lb) SpO2 100% BMI 29.25 kg/m? General Appearance: well appearing, in no acute distress, alert Skin: Skin color, texture, turgor normal for age; Eyes: conjunctiva pink and moist, no icterus, sclera white, non-injected Lymph nodes: No cervical lymphadenopathy and No supraclavicular lymphadenopathy Lungs: Lungs clear to auscultation. No wheezing, rhonchi, rales. Heart: RRR without murmur, gallop, or rubs. No ectopy Abdomen: Abdomen soft, non-tender. Bowel sounds normal. No masses, organomegaly Ext: no edema in LE bilaterally, good distal pulses DATA REVIEWED: Most recent colonoscopy ASSESSMENT/PLAN: 1. Diarrhea, unspecified type - ICD9: 787.91, ICD10: R19.7 Differentials include food poisoning, infectious diarrhea from raw sewage, viral illness Work-up with: - CBC - COMP METABOLIC PANEL - CRYPTOSPORIDIUM AND GIARDIA ANTIGENS BY EIA - C. DIFFICILE PCR - ENTERIC BACTERIAL PANEL BY PCR - FECAL OCCULT BLOOD TEST Follow-up pending results. Once patient submits stool sample can start Imodium OTC Prescription instructions reviewed with patient as applicable. Potential red flag symptoms discussed with the patient. Reviewed appropriate action plan to take if red flag symptoms occur. Patient agreeable to treatment plan Tamiko Quinn APRN.CNP [facility] 01-20-2023 Instructions Tamiko Quinn APRN.CNP - 01/20/2023 2:14 PM EDT Drink liquids frequently. Increase the amount to 2 to 3 liters or quarts daily as tolerated, or try sipping liquids in small amounts throughout the day. Choose diluted, pulpless fruit juices, broths, oral rehydration drinks or sodas (without caffeine). Chicken broth (without the fat), tea with honey, and sports drinks also are good choices. Instead of drinking liquids with your meals, drink liquids between meals. Try these low-fiber foods: potatoes, rice, noodles, ripe bananas, applesauce, smooth peanut butter, white bread, chicken or turkey without the skin, lean ground beef, fish, yogurt or cottage cheese. Avoid greasy, fatty, or fried foods; raw vegetables and fruits; strong spices, and whole-grain cereals and breads. Limit food or beverages with caffeine, such as chocolate, coffee, strong tea, and some sodas. If you have cramping with diarrhea, avoid gas-forming foods and beverages such as beans, cabbage, beer, and carbonated beverages. Diarrheal illness may result in temporary intolerance to lactose, (dairy) so avoid these foods if they are making diarrhea worse. Call office if diarrhea persists despite above measures or if you develop abdominal pain, fever greater than 100.5, bloody or black/tarry stools, vomiting or signs of dehydration documented in this encounter [facility] 01-20-2023 Note Patient Outreach ([facility]) DINAH [id number]) 1940 F Date Time Provider Department 01/20/23 MALAIKA PANIAGUAV During your visit today, we recorded the following information about you: Malaika Paniagua MA 01/20/2023 10:49 AM Signed [facility]REACH Action/FYI [facility] Call. Received message in the ALIVIA pool from Nurse : Chrystal Hicks RN Patient needs an appointment within 24 hrs for watery diarrhea for a week Scheduled appointment with Tamiko Quinn APRN.CNP today at 12:40 PM. Routed to PRIMARY CARE PROVIDER: NO Route to PCC as NO Encounter Closed. Patient Identified by Name and : YES, via phone Outreach Outcome/Action Spoke to patient / parent / legal guardian: Patient scheduled Did you use a PCP flex slot to schedule this appointment? No Reason for Outreach Healthy at Home Payer: Payor: MEDICARE / Plan: MEDICARE A AND B / Product Type: Medicare / Care Gap Reviewed:: N/A Reminder: Reminder note to check Health Maintenance for items below Health Maintenance items due: There are no preventive care reminders to display for this patient. Navigation Signature: Malaika Paniagua MA January 20, 2023 10:37 AM Allergies As of Date: 01/20/2023 Noted Allergy Reaction LOVASTATIN 01/03/2015 17 - Myalgia Comments: Severe myalgia, gi upset, [id number] REDUCTASE INHIBIT*03/22/2015 17 - Myalgia CRESTOR (ROSUVASTATIN CALCIUM) 06/11/2012 14 - Other: See Comments Comments: Myalgia, weakness LIPITOR (ATORVASTATIN CALCIUM) 03/22/2015 17 - Myalgia BACTRIM (SULFAMETHOXAZOLE) 10/04/2009 Comments: ? Questionable- thinks may have had upset stomach due to Flagyl CIPRO (CIPROFLOXACIN) 10/03/2009 Comments: unsteady, near syncope FENOFIBRATE 09/03/2020 14 - Other: See Comments IVP DYE (IODINE) 04/09/2005 4 - Hives 7 - Swelling 12 - Shortness of Breath KEFLEX (CEPHALEXIN) 04/13/2005 2 - Rash Comments: Generalized red rash; also had some feeling of throat swelling but denied dyspnea or wheezing; Note IV tx Cefotaxime (3rd gen) without rash PENICILLINS 04/11/2005 12 - Shortness of Breath Date Reviewed: 01/20/2023 Reviewed by: Chrystal Hicks RN - Fully Assessed Reason for Visit: Population Health Navigation Outreach [3910] Cmt: H@[facility] CALL IN Prescriptions as of 01/20/2023 - fexofenadine (NORY) 60 mg tablet Take 60 mg by mouth twice daily as needed. Meds Comments as of 01/20/2023: 01/20/23 Patient reports no changes to current medications. 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] 06/03/2005 02/22/2015 BENIGN NEOPLASM LG BOWEL [D12.6] 06/03/2005 Diverticulosis of colon (without mention of hem*06/03/2005 02/22/2015 Personal history of colonic polyps [Z86.010] 08/13/2009 02/22/2015 Diverticulitis [K57.92] 11/13/2009 04/15/2011 Diverticulosis [K57.90] 04/15/2011 03/24/2016 PMB (postmenopausal bleeding) [N95.0] 06/20/2011 03/24/2016 KOLTON favor benign [[id number]] 06/20/2011 03/24/2016 Hematuria [R31.9] 01/16/2014 02/22/2015 Mixed hyperlipidemia [E78.2] 03/24/2016 Atherosclerosis of arteries [I70.90] 03/24/2016 07/22/2022 Aortic valve sclerosis [I35.8] 03/24/2016 Chronic urticaria [L50.8] 03/04/2017 Obesity, Class I, BMI 30-34.9 [E66.9] 09/27/2018 Multiple thyroid nodules [E04.2] 11/08/2019 Essential hypertension [I10] 07/24/2020 PVD (peripheral vascular disease) with claudica*07/27/2020 Raynaud's phenomenon without gangrene [I73.00] 11/27/2020 Anxiety about health [F41.8] 08/30/2021 Polymyalgia rheumatica (HCC) [M35.3] 09/16/2021 07/23/2022 Synovitis of wrist [M65.9] 01/20/2022 07/23/2022 Encounter Status:Closed by MALAIKA PANIAGUA on 01/20/23 [facility] 01-20-2023 Note Patient Outreach (SHARATH GODOY) DINAH NELSON ([id number]) 1940 F Date Time Provider Department 01/20/23 JENIFFER SCHERER During your visit today, we recorded the following information about you: Bryan Population Health NavigatorJeniffer 01/20/2023 10:43 AM Signed POPULATION HEALTH NAVIGATION OUTREACH Action/FYI Received call from Sonia Marsh RN NOC Patient needed to change appt.time for today Appt.rescheduled for 2:00pm Patient Identified by Name and : YES, via phone Outreach Outcome/Action Spoke to patient / parent / legal guardian: Patient scheduled Did you use a PCP flex slot to schedule this appointment? No Reason for Outreach Healthy at Home Payer: Payor: MEDICARE / Plan: MEDICARE A AND B / Product Type: Medicare / Care Gap Reviewed:: N/A Reminder: Reminder note to check Health Maintenance for items below Health Maintenance items due: There are no preventive care reminders to display for this patient. Navigation Signature: Jeniffer Scherer Population Health Navigator January 20, 2023 10:41 AM Allergies As of Date: 01/20/2023 Noted Allergy Reaction LOVASTATIN 01/03/2015 17 - Myalgia Comments: Severe myalgia, gi upset, [id number] REDUCTASE INHIBIT*03/22/2015 17 - Myalgia CRESTOR (ROSUVASTATIN CALCIUM) 06/11/2012 14 - Other: See Comments Comments: Myalgia, weakness LIPITOR (ATORVASTATIN CALCIUM) 03/22/2015 17 - Myalgia BACTRIM (SULFAMETHOXAZOLE) 10/04/2009 Comments: ? Questionable- thinks may have had upset stomach due to Flagyl CIPRO (CIPROFLOXACIN) 10/03/2009 Comments: unsteady, near syncope FENOFIBRATE 09/03/2020 14 - Other: See Comments IVP DYE (IODINE) 04/09/2005 4 - Hives 7 - Swelling 12 - Shortness of Breath KEFLEX (CEPHALEXIN) 04/13/2005 2 - Rash Comments: Generalized red rash; also had some feeling of throat swelling but denied dyspnea or wheezing; Note IV tx Cefotaxime (3rd gen) without rash PENICILLINS 04/11/2005 12 - Shortness of Breath Date Reviewed: 01/20/2023 Reviewed by: Chrystal Hicks RN - Fully Assessed Reason for Visit: Population Health Navigation Outreach [3910] Cmt: H@H Prescriptions as of 01/20/2023 - fexofenadine (NORY) 60 mg tablet Take 60 mg by mouth twice daily as needed. Meds Comments as of 01/20/2023: 01/20/23 Patient reports no changes to current medications. 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] 06/03/2005 02/22/2015 BENIGN NEOPLASM LG BOWEL [D12.6] 06/03/2005 Diverticulosis of colon (without mention of hem*06/03/2005 02/22/2015 Personal history of colonic polyps [Z86.010] 08/13/2009 02/22/2015 Diverticulitis [K57.92] 11/13/2009 04/15/2011 Diverticulosis [K57.90] 04/15/2011 03/24/2016 PMB (postmenopausal bleeding) [N95.0] 06/20/2011 03/24/2016 KOLTON favor benign [[id number]] 06/20/2011 03/24/2016 Hematuria [R31.9] 01/16/2014 02/22/2015 Mixed hyperlipidemia [E78.2] 03/24/2016 Atherosclerosis of arteries [I70.90] 03/24/2016 07/22/2022 Aortic valve sclerosis [I35.8] 03/24/2016 Chronic urticaria [L50.8] 03/04/2017 Obesity, Class I, BMI 30-34.9 [E66.9] 09/27/2018 Multiple thyroid nodules [E04.2] 11/08/2019 Essential hypertension [I10] 07/24/2020 PVD (peripheral vascular disease) with claudica*07/27/2020 Raynaud's phenomenon without gangrene [I73.00] 11/27/2020 Anxiety about health [F41.8] 08/30/2021 Polymyalgia rheumatica (HCC) [M35.3] 09/16/2021 07/23/2022 Synovitis of wrist [M65.9] 01/20/2022 07/23/2022 Encounter Status:Closed by [facility] POPULATION HEALTH NAVIGATORJENIFFER on 01/20/23 [facility] 01-20-2023 History of Presen t illness Narrative CC Patient presents with: Diarrhea HPI Dinah Nelson is a 82 year old female who presents with diarrhea for 1 WEEK(S) Diarrhea is described as profuse watery occuring 2-5 stools/day on average. Associated with nausea and decreased appetite. Denies: vomiting, abdominal pain, bloating, heartburn/reflux, black/bloody stools, constipation She ate a taco salad from [employer] the night before onset of symptoms and a family reunion the week before but no else is sick. She also had to clean up after a raw sewage leak two days prior to onset. Otherwise denies recent antibiotic use, foreign travel, sick contacts. No history of bowel issues. She has had a hemicolectomy and cholecystectomy. Last colonoscopy was 2014. Treatments: None ROS General: reports intermittent lightheadedness and chills. denies body aches, malaise, weakness, dizziness, weight loss, fever, headaches, night sweats, syncope, feeling faint CV: denies rapid heart rate, edema Resp: denies SOB : denies dark/concentrated urine or decreased urine output PAST MEDICAL HISTORY Diagnosis Date Aortic valve sclerosis 03/24/2016 Atherosclerosis of arteries 03/24/2016 Benign meningioma of brain (HCC) 11/08/2019 Benign neoplasm of colon Benign neoplasm of stomach Cataract Both eyes COVID-19 05/07/2022 Diverticulitis Diverticulosis 04/15/2011 Dysplasia of cervix 1988 Esophageal reflux Lipoma of skin and subcutaneous tissue of neck 11/08/2019 right posterior neck Mixed hyperlipidemia 03/24/2016 Polymyalgia rheumatica (HCC) 09/16/2021 PVD (peripheral vascular disease) with claudication (HCC) 07/27/2020 Raynaud's phenomenon without gangrene 11/27/2020 Thyroid nodule 11/08/2019 Unspecified hypothyroidism PAST SURGICAL HISTORY Procedure Laterality Date APPENDECTOMY BIOPSY CERVIX SINGLE/MULT/EXCISION OF LESION SPX CATARACT SURGERY, COMPLEX 2011 CHOLECYSTECTOMY Cholecystectomy COLONOSCOPY FLX DX W/COLLJ SPEC WHEN PFRMD 06/03/05 Colonoscopy with bx COLONOSCOPY FLX DX W/COLLJ SPEC WHEN PFRMD 06/03/05 Colonoscopy with polypectomy COLONOSCOPY FLX DX W/COLLJ SPEC WHEN PFRMD 08/13/2009 Colonoscopy-repeat in 3 years (-2012) COLSC FLX W/RMVL OF TUMOR POLYP LESION SNARE TQ 11/07/14 hyperplastic polyp - 5 year follow up - h/o polyps ESOPHAGOGASTRODUODENOSCOPY TRANSORAL DIAGNOSTIC 05/30/05 EGD LAPAROSCOPIC HEMICOLECTOMY Right 2006 LEEP 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 FAMILY HISTORY Problem Relation Age of Onset Heart Mother Stroke Mother Heart Father heart attack Social History Tobacco Use Smoking status: Never Smokeless tobacco: Never Vaping Use Vaping Use: Never used Substance Use Topics Alcohol use: No Drug use: No PHYSICAL EXAM BP 134/76 Pulse 96 Temp 37.2 C (98.9 F) (Temporal) Resp 14 Wt 73 kg (161 lb) SpO2 100% BMI 29.25 kg/m General Appearance: well appearing, in no acute distress, alert Skin: Skin color, texture, turgor normal for age; Eyes: conjunctiva pink and moist, no icterus, sclera white, non-injected Lymph nodes: No cervical lymphadenopathy and No supraclavicular lymphadenopathy Lungs: Lungs clear to auscultation. No wheezing, rhonchi, rales. Heart: RRR without murmur, gallop, or rubs. No ectopy Abdomen: Abdomen soft, non-tender. Bowel sounds normal. No masses, organomegaly Ext: no edema in LE bilaterally, good distal pulses DATA REVIEWED: Most recent colonoscopy ASSESSMENT/PLAN: 1. Diarrhea, unspecified type - ICD9: 787.91, ICD10: R19.7 Differentials include food poisoning, infectious diarrhea from raw sewage, viral illness Work-up with: - CBC - COMP METABOLIC PANEL - CRYPTOSPORIDIUM AND GIARDIA ANTIGENS BY EIA - C. DIFFICILE PCR - ENTERIC BACTERIAL PANEL BY PCR - FECAL OCCULT BLOOD TEST Follow-up pending results. Once patient submits stool sample can start Imodium OTC Prescription instructions reviewed with patient as applicable. Potential red flag symptoms discussed with the patient. Reviewed appropriate action plan to take if red flag symptoms occur. Patient agreeable to treatment plan Tamiko Quinn APRN.CNP documented in this encounter [facility] 01-20-2023 Note HNO ID: [id number] Author: Bryan Population Health Jeniffer Yang Service: ? Author Type: ? Type: Progress Notes Filed: 01/20/2023 10:43 AM Note Text: POPULATION HEALTH NAVIGATION OUTREACH Action/FYI Received call from Sonia Marsh RN NOC Patient needed to change appt.time for today Appt.rescheduled for 2:00pm Patient Identified by Name and : YES, via phone Outreach Outcome/Action Spoke to patient / parent / legal guardian: Patient scheduled Did you use a PCP flex slot to schedule this appointment? No Reason for Outreach Healthy at Home Payer: Payor: MEDICARE / Plan: MEDICARE A AND B / Product Type: Medicare / Care Gap Reviewed:: N/A Reminder: Reminder note to check Health Maintenance for items below Health Maintenance items due: There are no preventive care reminders to display for this patient. Navigation Signature: Jeniffer Scherer Population Health Navigator January 20, 2023 10:41 AM [facility] 01-20-2023 Note HNO ID: [id number] Author: Malaika Paniagua MA Service: ? Author Type: Holiday Detector Operator Type: Progress Notes Filed: 01/20/2023 10:49 AM Note Text: POPULATION HEALTH NAVIGATION OUTREACH Action/FYI H@H [facility] Call. Received message in the [employer] pool from Nurse : Chrystal Hicks RN Patient needs an appointment within 24 hrs for watery diarrhea for a week Scheduled appointment with Tamiko Quinn APRN.CNP today at 12:40 PM. Routed to PRIMARY CARE PROVIDER: NO Route to PCC as FYI NO Encounter Closed. Patient Identified by Name and : YES, via phone Outreach Outcome/Action Spoke to patient / parent / legal guardian: Patient scheduled Did you use a PCP flex slot to schedule this appointment? No Reason for Outreach Healthy at Home Payer: Payor: MEDICARE / Plan: MEDICARE A AND B / Product Type: Medicare / Care Gap Reviewed:: N/A Reminder: Reminder note to check Health Maintenance for items below Health Maintenance items due: There are no preventive care reminders to display for this patient. Navigation Signature: Malaika Paniagua MA January 20, 2023 10:37 AM [facility] 01-20-2023 Miscellaneous Notes HEALTHY AT HOME OUTREACH Provider Action/FYI: No further action required. Pt's appt time changed per her request Osiel, you've reached [facility] Healthy at Home, my name is Sonia Marsh RN, I'm a registered nurse, and we are on a recorded line. Patient identified by name and date of Spoke with patient Verify that the patient is a [facility] patient: Yes Are you having any symptoms today? No - What is the reason for call? Appointment Call Disposition: Routed to Navigation documented in this encounter [facility] 01-20-2023 History of Presen t illness Narrative POPULATION HEALTH NAVIGATION OUTREACH Action/FYI Received call from Sonia Marsh RN NOC Patient needed to change appt.time for today Appt.rescheduled for 2:00pm Patient Identified by Name and : YES, via phone Outreach Outcome/Action Spoke to patient / parent / legal guardian: Patient scheduled Did you use a PCP flex slot to schedule this appointment? No Reason for Outreach Healthy at Home Payer: Payor: MEDICARE / Plan: MEDICARE A AND B / Product Type: Medicare / Care Gap Reviewed:: N/A Reminder: Reminder note to check Health Maintenance for items below Health Maintenance items due: There are no preventive care reminders to display for this patient. Navigation Signature: Jeniffer Scherer Population Health Navigator January 20, 2023 10:41 AM documented in this encounter [facility] 01-20-2023 History of Presen t illness Narrative POPULATION HEALTH NAVIGATION OUTREACH Action/FYI H@H [facility] Call. Received message in the [employer] pool from Nurse : Chrystal Hicks RN Patient needs an appointment within 24 hrs for watery diarrhea for a week Scheduled appointment with Tamiko Quinn APRN.CNP today at 12:40 PM. Routed to PRIMARY CARE PROVIDER: NO Route to PCC as FYI NO Encounter Closed. Patient Identified by Name and : YES, via phone Outreach Outcome/Action Spoke to patient / parent / legal guardian: Patient scheduled Did you use a PCP flex slot to schedule this appointment? No Reason for Outreach Healthy at Home Payer: Payor: MEDICARE / Plan: MEDICARE A AND B / Product Type: Medicare / Care Gap Reviewed:: N/A Reminder: Reminder note to check Health Maintenance for items below Health Maintenance items due: There are no preventive care reminders to display for this patient. Navigation Signature: Malaika Paniagua MA January 20, 2023 10:37 AM documented in this encounter [facility] 01-05-2023 Note HNO ID: [id number] Author: Gay Salomon RN Service: ? Author Type: Registered Nurse Type: Progress Notes Filed: 01/05/2023 12:44 PM Note Text: CDM Telephonic Outreach Provider Action/FYI No questions, concerns, needs at this time. Patient would like every 5 week calls. Contacted for: Routine Telephonic Outreach Contact made with patient: Yes Patient identified by name and date of . Discussed care with patient Are you experiencing any new or worsening symptoms you need to talk about today? No Disease Specific Do you check your blood pressure at home? Yes, Enter readings: 120's/68-76 Do you have new or worsening shortness of breath with activity? No Based on valve technician, the following disposition is advised: No symptoms or symptoms present, not severe. Routed to: No Action Needed JENA Education Provided this Outreach: No Gay Salomon RN January 05, 2023 12:44 PM [facility] 01-05-2023 Note Patient Outreach (AM BC) DINAH NELSON ([id number]) 1940 F Date Time Provider Department 01/05/23 GAY SALOMON AMBG During your visit today, we recorded the following information about you: Gay Salomon RN 01/05/2023 12:44 PM Signed CDM Telephonic Outreach Provider Action/FYI No questions, concerns, needs at this time. Patient would like every 5 week calls. Contacted for: Routine Telephonic Outreach Contact made with patient: Yes Patient identified by name and date of . Discussed care with patient Are you experiencing any new or worsening symptoms you need to talk about today? No Disease Specific Do you check your blood pressure at home? Yes, Enter readings: 120's/68-76 Do you have new or worsening shortness of breath with activity? No Based on valve technician, the following disposition is advised: No symptoms or symptoms present, not severe. Routed to: No Action Needed JENA Education Provided this Outreach: No Gay Salomon RN January 05, 2023 12:44 PM Allergies As of Date: 01/05/2023 Noted Allergy Reaction LOVASTATIN 01/03/2015 17 - Myalgia Comments: Severe myalgia, gi upset, [id number] REDUCTASE INHIBIT*03/22/2015 17 - Myalgia CRESTOR (ROSUVASTATIN CALCIUM) 06/11/2012 14 - Other: See Comments Comments: Myalgia, weakness LIPITOR (ATORVASTATIN CALCIUM) 03/22/2015 17 - Myalgia BACTRIM (SULFAMETHOXAZOLE) 10/04/2009 Comments: ? Questionable- thinks may have had upset stomach due to Flagyl CIPRO (CIPROFLOXACIN) 10/03/2009 Comments: unsteady, near syncope FENOFIBRATE 09/03/2020 14 - Other: See Comments IVP DYE (IODINE) 04/09/2005 4 - Hives 7 - Swelling 12 - Shortness of Breath KEFLEX (CEPHALEXIN) 04/13/2005 2 - Rash Comments: Generalized red rash; also had some feeling of throat swelling but denied dyspnea or wheezing; Note IV tx Cefotaxime (3rd gen) without rash PENICILLINS 04/11/2005 12 - Shortness of Breath Date Reviewed: 12/30/2022 Reviewed by: Bia Shell LPN - Fully Assessed Reason for Visit: Community Monitoring Outreach [Other] Cmt: CDM Follow Up Prescriptions as of 01/05/2023 - fexofenadine (NORY) 60 mg tablet Take 60 mg by mouth twice daily as needed. 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] 06/03/2005 02/22/2015 BENIGN NEOPLASM LG BOWEL [D12.6] 06/03/2005 Diverticulosis of colon (without mention of hem*06/03/2005 02/22/2015 Personal history of colonic polyps [Z86.010] 08/13/2009 02/22/2015 Diverticulitis [K57.92] 11/13/2009 04/15/2011 Diverticulosis [K57.90] 04/15/2011 03/24/2016 PMB (postmenopausal bleeding) [N95.0] 06/20/2011 03/24/2016 KOLTON favor benign [SAE1838] 06/20/2011 03/24/2016 Hematuria [R31.9] 01/16/2014 02/22/2015 Mixed hyperlipidemia [E78.2] 03/24/2016 Atherosclerosis of arteries [I70.90] 03/24/2016 07/22/2022 Aortic valve sclerosis [I35.8] 03/24/2016 Chronic urticaria [L50.8] 03/04/2017 Obesity, Class I, BMI 30-34.9 [E66.9] 09/27/2018 Multiple thyroid nodules [E04.2] 11/08/2019 Essential hypertension [I10] 07/24/2020 PVD (peripheral vascular disease) with claudica*07/27/2020 Raynaud's phenomenon without gangrene [I73.00] 11/27/2020 Anxiety about health [F41.8] 08/30/2021 Polymyalgia rheumatica (HCC) [M35.3] 09/16/2021 07/23/2022 Synovitis of wrist [M65.9] 01/20/2022 07/23/2022 Encounter Status:Closed by GAY SALOMON on 01/05/23 [facility] 01-05-2023 History of Presen t illness Narrative CDM Telephonic Outreach Provider Action/FYI No questions, concerns, needs at this time. Patient would like every 5 week calls. Contacted for: Routine Telephonic Outreach Contact made with patient: Yes Patient identified by name and date of . Discussed care with patient Are you experiencing any new or worsening symptoms you need to talk about today? No Disease Specific Do you check your blood pressure at home? Yes, Enter readings: 120's/68-76 Do you have new or worsening shortness of breath with activity? No Based on valve technician, the following disposition is advised: No symptoms or symptoms present, not severe. Routed to: No Action Needed JENA Education Provided this Outreach: No Gay Salomon RN January 05, 2023 12:44 PM documented in this encounter [facility] 12-30-2022 Note HNO ID: [id number] Author: Shanice Crawley PA Service: ? Author Type: Physician Commercial Loan Reviewer Type: Progress Notes Filed: 12/30/2022 7:07 PM Note Text: This note was created using NoteWriter. Subjective Dinah Nelson is a 82 year old female. HPI 82-year-old female presents for skin tear to left arm. Patient states that she bumped her arm off of the truck bed today and got a small abrasion/skin tear. She cleaned the wound and put a bandage on it. No active bleeding. Not on any blood thinners. She states that her tetanus needs updated. She denies any pain in the arm. No numbness or tingling. She is not diabetic. No other complaints. PAST MEDICAL HISTORY Diagnosis Date Aortic valve sclerosis 03/24/2016 Atherosclerosis of arteries 03/24/2016 Benign meningioma of brain (HCC) 11/08/2019 Benign neoplasm of colon Benign neoplasm of stomach Cataract Both eyes COVID-19 05/07/2022 Diverticulitis Diverticulosis 04/15/2011 Dysplasia of cervix 1988 Esophageal reflux Lipoma of skin and subcutaneous tissue of neck 11/08/2019 right posterior neck Mixed hyperlipidemia 03/24/2016 Polymyalgia rheumatica (HCC) 09/16/2021 PVD (peripheral vascular disease) with claudication (HCC) 07/27/2020 Raynaud's phenomenon without gangrene 11/27/2020 Thyroid nodule 11/08/2019 Unspecified hypothyroidism PAST SURGICAL HISTORY Procedure Laterality Date APPENDECTOMY BIOPSY CERVIX SINGLE/MULT/EXCISION OF LESION SPX CATARACT SURGERY, COMPLEX 2010 CHOLECYSTECTOMY Cholecystectomy COLONOSCOPY FLX DX W/COLLJ SPEC WHEN PFRMD 06/03/05 Colonoscopy with bx COLONOSCOPY FLX DX W/COLLJ SPEC WHEN PFRMD 06/03/05 Colonoscopy with polypectomy COLONOSCOPY FLX DX W/COLLJ SPEC WHEN PFRMD 08/13/2009 Colonoscopy-repeat in 3 years (-2012) COLSC FLX W/RMVL OF TUMOR POLYP LESION SNARE TQ 11/07/14 hyperplastic polyp - 5 year follow up - h/o polyps ESOPHAGOGASTRODUODENOSCOPY TRANSORAL DIAGNOSTIC 05/30/05 EGD LAPAROSCOPIC HEMICOLECTOMY Right 2006 LEEP 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 FAMILY HISTORY Problem Relation Age of Onset Heart Mother Stroke Mother Heart Father heart attack Social History Tobacco Use Smoking status: Never Smokeless tobacco: Never Vaping Use Vaping Use: Never used Substance Use Topics Alcohol use: No Drug use: No Review of Systems Constitutional: Negative for chills and fever. HENT: Negative for congestion, ear pain and sore throat. Respiratory: Negative for cough and shortness of breath. Cardiovascular: Negative for chest pain. Gastrointestinal: Negative for diarrhea and vomiting. Skin: Positive for wound. Objective BP 132/68 Pulse 110 Temp 36.4 ?C (97.6 ?F) Resp 18 Wt 73.8 kg (162 lb 9.6 oz) SpO2 97% BMI 29.54 kg/m? Physical Exam Vitals and nursing note reviewed. Constitutional: General: She is not in acute distress. Appearance: Normal appearance. She is not toxic-appearing. Cardiovascular: Rate and Rhythm: Normal rate and regular rhythm. Pulmonary: Effort: Pulmonary effort is normal. Breath sounds: Normal breath sounds. Musculoskeletal: Left forearm: No lacerations (+ bruising, + skin tear), tenderness or bony tenderness. Arms: Comments: Patient has a very small skin tear/abrasion to left forearm with surrounding bruising. No active bleeding. No foreign body seen. Very superficial. Normal ROM of the arm. No tenderness. Skin: General: Skin is warm and dry. Neurological: Mental Status: She is alert. Assessment and Plan ASSESSMENT/PLAN: 1. Skin tear of left forearm without complication, initial encounter - ICD9: 881.00, ICD10: S51.812A -Wound cleansed with sterile water. No open wound, skin flap has been pushed back down at this point. No foreign body seen. No pain. Antibiotic ointment and dressing applied. -Tetanus updated. -Advised to continue antibiotic ointment watch for signs of infection. Diagnosis and treatment plan were discussed and questions were answered to the patient's satisfaction. Pt acknowledged understanding of concepts and follow up plan. Specific signs and symptoms that would indicate the need for higher level of care were discussed in detail warranting prompt ER evaluation. REBEL Duval [facility] 12-30-2022 History of Presen t illness Narrative Images from the original note were not included. This note was created using [employer]. Subjective Dinah Nelson is a 82 year old female. HPI 82-year-old female presents for skin tear to left arm. Patient states that she bumped her arm off of the truck bed today and got a small abrasion/skin tear. She cleaned the wound and put a bandage on it. No active bleeding. Not on any blood thinners. She states that her tetanus needs updated. She denies any pain in the arm. No numbness or tingling. She is not diabetic. No other complaints. PAST MEDICAL HISTORY Diagnosis Date Aortic valve sclerosis 03/24/2016 Atherosclerosis of arteries 03/24/2016 Benign meningioma of brain (HCC) 11/08/2019 Benign neoplasm of colon Benign neoplasm of stomach Cataract Both eyes COVID-19 05/07/2022 Diverticulitis Diverticulosis 04/15/2011 Dysplasia of cervix 1988 Esophageal reflux Lipoma of skin and subcutaneous tissue of neck 11/08/2019 right posterior neck Mixed hyperlipidemia 03/24/2016 Polymyalgia rheumatica (HCC) 09/16/2021 PVD (peripheral vascular disease) with claudication ([facility]) 07/27/2020 Raynaud's phenomenon without gangrene 11/27/2020 Thyroid nodule 11/08/2019 Unspecified hypothyroidism PAST SURGICAL HISTORY Procedure Laterality Date APPENDECTOMY BIOPSY CERVIX SINGLE/MULT/EXCISION OF LESION SPX CATARACT SURGERY, COMPLEX 2010 CHOLECYSTECTOMY Cholecystectomy COLONOSCOPY FLX DX W/COLLJ SPEC WHEN PFRMD 06/03/05 Colonoscopy with bx COLONOSCOPY FLX DX W/COLLJ SPEC WHEN PFRMD 06/03/05 Colonoscopy with polypectomy COLONOSCOPY FLX DX W/COLLJ SPEC WHEN PFRMD 08/13/2009 Colonoscopy-repeat in 3 years (-2012) COLSC FLX W/RMVL OF TUMOR POLYP LESION SNARE TQ 11/07/14 hyperplastic polyp - 5 year follow up - h/o polyps ESOPHAGOGASTRODUODENOSCOPY TRANSORAL DIAGNOSTIC 05/30/05 EGD LAPAROSCOPIC HEMICOLECTOMY Right 2006 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 FAMILY HISTORY Problem Relation Age of Onset Heart Mother Stroke Mother Heart Father heart attack Social History Tobacco Use Smoking status: Never Smokeless tobacco: Never Vaping Use Vaping Use: Never used Substance Use Topics Alcohol use: No Drug use: No Review of Systems Constitutional: Negative for chills and fever. HENT: Negative for congestion, ear pain and sore throat. Respiratory: Negative for cough and shortness of breath. Cardiovascular: Negative for chest pain. Gastrointestinal: Negative for diarrhea and vomiting. Skin: Positive for wound. Objective BP 132/68 Pulse 110 Temp 36.4 C (97.6 F) Resp 18 Wt 73.8 kg (162 lb 9.6 oz) SpO2 97% BMI 29.54 kg/m Physical Exam Vitals and nursing note reviewed. Constitutional: General: She is not in acute distress. Appearance: Normal appearance. She is not toxic-appearing. Cardiovascular: Rate and Rhythm: Normal rate and regular rhythm. Pulmonary: Effort: Pulmonary effort is normal. Breath sounds: Normal breath sounds. Musculoskeletal: Left forearm: No lacerations (+ bruising, + skin tear), tenderness or bony tenderness. Arms: Comments: Patient has a very small skin tear/abrasion to left forearm with surrounding bruising. No active bleeding. No foreign body seen. Very superficial. Normal ROM of the arm. No tenderness. Skin: General: Skin is warm and dry. Neurological: Mental Status: She is alert. Assessment and Plan ASSESSMENT/PLAN: 1. Skin tear of left forearm without complication, initial encounter - ICD9: 881.00, ICD10: S51.812A -Wound cleansed with sterile water. No open wound, skin flap has been pushed back down at this point. No foreign body seen. No pain. Antibiotic ointment and dressing applied. -Tetanus updated. -Advised to continue antibiotic ointment watch for signs of infection. Diagnosis and treatment plan were discussed and questions were answered to the patient's satisfaction. Pt acknowledged understanding of concepts and follow up plan. Specific signs and symptoms that would indicate the need for higher level of care were discussed in detail warranting prompt ER evaluation. REBEL Duval documented in this encounter [facility] 12-23-2022 Note HNO ID: [id number] Author: Rachelle Sumner LPN Service: ? Author Type: LICENSED NURSE Type: Progress Notes Filed: 12/23/2022 10:07 AM Note Text: Per Dr. Govea, Dinah was provided with powerstep gel inserts, size 8, and instructed/educated in its application, wear, and care. All questions were answered, and patient was able to demonstrate competence with the necessary skills to utilize the above equipment. Rachelle Sumner LPN [facility] 12-23-2022 Note HNO ID: [id number] Author: Gabriella Govea Service: ? Author Type: Physician Type: Progress Notes Filed: 12/23/2022 10:07 AM Note Text: Consultation requested by Dr. Quinn for an opinion regarding left foot pain. My final recommendations will be communicated back to the requesting physician by way of shared Medical record or letter to requesting physician via US mail. Initial Podiatric Office Visit: Chief Complaint: This 82 year old female who presents with chief complaint:left foot pain HPI Patient presents to clinic for evaluation of left foot She has pain to the ball of left foot that has been present for about 6 months She states there is pain whenever she applies pressure on the foot She has pain worse when she is barefoot. Patient currently tolerates the pain. She is not taking any medication for the pain. PAIN EVALUATION 12/23/2022 0937 Pain Level: 5 Pain Location: Foot-Left Description: Shooting;Pressure Duration Amount of Time: -- few Duration Units: Months Frequency: Continuous Intervention/Comfort measure: Relaxation;Reposition No results found for: HBA1C PCP: Bennett Weir MD PAST MEDICAL HISTORY Diagnosis Date Aortic valve sclerosis 03/24/2016 Atherosclerosis of arteries 03/24/2016 Benign meningioma of brain (HCC) 11/08/2019 Benign neoplasm of colon Benign neoplasm of stomach Cataract Both eyes COVID-19 05/07/2022 Diverticulitis Diverticulosis 04/15/2011 Dysplasia of cervix 1988 Esophageal reflux Lipoma of skin and subcutaneous tissue of neck 11/08/2019 right posterior neck Mixed hyperlipidemia 03/24/2016 Polymyalgia rheumatica (HCC) 09/16/2021 PVD (peripheral vascular disease) with claudication ([facility]) 07/27/2020 Raynaud's phenomenon without gangrene 11/27/2020 Thyroid nodule 11/08/2019 Unspecified hypothyroidism Current Outpatient Medications Medication Sig fexofenadine (NORY) 60 mg tablet Take 60 mg by mouth twice daily as needed. No current facility-administered medications for this visit. ALLERGIES Allergen Reactions Lovastatin Myalgia Severe myalgia, gi upset, Lgstwob-Scn-Nee Red* Myalgia Crestor [Rosuvastat* Other: See Comments Myalgia, weakness Lipitor [Atorvastat* Myalgia Bactrim [Sulfametho* ? Questionable- thinks may have had upset stomach due to Flagyl Cipro [Ciprofloxaci* unsteady, near syncope Ivp Dye [Iodine] Hives, Swelling, Shortness of Breath Keflex [Cephalexin] Rash Generalized red rash; also had some feeling of throat swelling but denied dyspnea or wheezing; Note IV tx Cefotaxime (3rd gen) without rash Penicillins Shortness of Breath PAST SURGICAL HISTORY Procedure Laterality Date APPENDECTOMY BIOPSY CERVIX SINGLE/MULT/EXCISION OF LESION SPX CATARACT SURGERY, COMPLEX 2010 CHOLECYSTECTOMY Cholecystectomy COLONOSCOPY FLX DX W/COLLJ SPEC WHEN PFRMD 06/03/05 Colonoscopy with bx COLONOSCOPY FLX DX W/COLLJ SPEC WHEN PFRMD 06/03/05 Colonoscopy with polypectomy COLONOSCOPY FLX DX W/COLLJ SPEC WHEN PFRMD 08/13/2009 Colonoscopy-repeat in 3 years (-2012) COLSC FLX W/RMVL OF TUMOR POLYP LESION SNARE TQ 11/07/14 hyperplastic polyp - 5 year follow up - h/o polyps ESOPHAGOGASTRODUODENOSCOPY TRANSORAL DIAGNOSTIC 05/30/05 EGD LAPAROSCOPIC HEMICOLECTOMY Right 2006 LEEP PROCEDURE (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[employer]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 [employer]PER[employer] DEPT)_*FL 1988 FAMILY HISTORY Problem Relation Age of Onset Heart Mother Stroke Mother Heart Father heart attack Social History Tobacco Use Smoking status: Never Smokeless tobacco: Never Vaping Use Vaping Use: Never used Substance Use Topics Alcohol use: No Drug use: No REVIEW OF SYSTEMS GENERAL: Negative for Malaise, significant weight loss, fever RESPIRATORY: Negative for cough, wheezing and shortness of breath CARDIOVASCULAR: Negative for chest pain, leg swelling and palpitations GI: Negative for abdominal discomfort, blood in stools or black stools and change in bowel habits : Negative for dysuria, frequency and incontinence MUSCULOSKELETAL: Negative for joint pain or swelling, back pain, and muscle pain. SKIN: Negative for lesions, rash, and itching. HEMATOLOGY/LYMPHOLOGY Negative for prolonged bleeding, bruising easily, and swollen nodes. ENDOCRINE: Negative for cold or heat intolerance, polyuria, polydipsia and goiter. NEURO: negative Physical Exam: Constitutional: Pt is a well developed 82 year old female who is alert, oriented and cooperative Eyes: Following during examination. No redness or drainage. Respiratory: RR normal and nonlabored. Even breathing. No evidence of distress or shortness of breath. Psychology: Patient is engaged during conversation. Normal affect and mood. Does not appear depressed or anxious during encounter. Vascular: Dorsalis pedis and posterior tibial pulses palpable right and nonpalpable left Capillary Fill time < 5 seconds to digits 1-5 b/l Skin temperature warm to warm proximal to distal b/l [place] (more content not included)... [facility] 12-23-2022 Note HNO ID: [id number] Author: Ioana Cadet, RONEY Service: ? Author Type: Registered Nurse Type: Progress Notes Filed: 12/23/2022 10:07 AM Note Text: AMB ROOMING INTAKE FLOWSHEET DATA Pain Pain Level: 5 Pain Location: Foot-Left Description: Shooting, Pressure Duration Amount of Time: (few) Duration Units: Months Frequency: Continuous Intervention/Comfort measure: Relaxation, Reposition. Patient presents with: Left Foot - New, Pain Patient presents for Left foot pain that has been going on for a few months. Pain is primarily located to the ball of her foot, states that sometimes it radiates towards the arch. Patient denies any injury. Has not found a pattern of what makes the pain worse or better. [facility] 12-23-2022 Note HNO ID: [id number] Author: Kourtney Cantu RT(R) Service: ? Author Type: Furniture Shampooer Type: Progress Notes Filed: 12/23/2022 9:33 AM Note Text: Radiology Service Progress Note PATIENT NAME: Dinah Nelson DATE OF SERVICE: December 23, 2022 TIME: 9:22 AM PATIENT IDENTITY VERIFICATION COMPLETED USING TWO (2) IDENTIFIERS: Name and Date of confirmed by patient verbally. FALL SCREENING: Has the patient had 2 falls in the last year or 1 fall with injury or currently using an Ambulatory Assistive Device (Walker, Cane, Wheelchair, Crutches, etc.)? Yes, Patient High Risk for Falls What interventions were put in place to prevent falls during this visit? Offered Assistance with Transfers/Clothing, Instructed Patient to Remain Seated (Not on Exam Table) Until Exam, and Increased Observations by Caregivers PATIENT GENDER DATA: Female. status: : No status: NO. PATIENT RELEVANT IMPLANT DATA REVIEWED: Yes RADIOLOGY DEPARTMENT: General X-ray: Exam(s) Completed: Lower Extremity X-Ray(s): Foot, Left PERIPHERAL IV DATA: Not applicable SIGNED BY: RT Cassy(R) December 23, 2022 9:22 AM [facility] 12-23-2022 History of Presen t illness Narrative Per Dr. Govea, Dinah was provided with powerstep gel inserts, size 8, and instructed/educated in its application, wear, and care. All questions were answered, and patient was able to demonstrate competence with the necessary skills to utilize the above equipment. Rachelle Sumner LPN Images from the original note were not included. Consultation requested by Dr. Quinn for an opinion regarding left foot pain. My final recommendations will be communicated back to the requesting physician by way of shared Medical record or letter to requesting physician via US mail. Initial Podiatric Office Visit: Chief Complaint: This 82 year old female who presents with chief complaint:left foot pain HPI Patient presents to clinic for evaluation of left foot She has pain to the ball of left foot that has been present for about 6 months She states there is pain whenever she applies pressure on the foot She has pain worse when she is barefoot. Patient currently tolerates the pain. She is not taking any medication for the pain. PAIN EVALUATION 12/23/2022 0937 Pain Level: 5 Pain Location: Foot-Left Description: Shooting;Pressure Duration Amount of Time: -- few Duration Units: Months Frequency: Continuous Intervention/Comfort measure: Relaxation;Reposition No results found for: HBA1C PCP: Bennett Weir MD PAST MEDICAL HISTORY Diagnosis Date Aortic valve sclerosis 03/24/2016 Atherosclerosis of arteries 03/24/2016 Benign meningioma of brain (HCC) 11/08/2019 Benign neoplasm of colon Benign neoplasm of stomach Cataract Both eyes COVID-19 05/07/2022 Diverticulitis Diverticulosis 04/15/2011 Dysplasia of cervix 1989 Esophageal reflux Lipoma of skin and subcutaneous tissue of neck 11/08/2019 right posterior neck Mixed hyperlipidemia 03/24/2016 Polymyalgia rheumatica ([facility]) 09/16/2021 PVD (peripheral vascular disease) with claudication ([facility]) 07/27/2020 Raynaud's phenomenon without gangrene 11/27/2020 Thyroid nodule 11/08/2019 Unspecified hypothyroidism Current Outpatient Medications Medication Sig fexofenadine (NORY) 60 mg tablet Take 60 mg by mouth twice daily as needed. No current facility-administered medications for this visit. ALLERGIES Allergen Reactions Lovastatin Myalgia Severe myalgia, gi upset, Chfyegd-Kkk-Aid Red* Myalgia Crestor [Rosuvastat* Other: See Comments Myalgia, weakness Lipitor [Atorvastat* Myalgia Bactrim [Sulfametho* ? Questionable- thinks may have had upset stomach due to Flagyl Cipro [Ciprofloxaci* unsteady, near syncope Ivp Dye [Iodine] Hives, Swelling, Shortness of Breath Keflex [Cephalexin] Rash Generalized red rash; also had some feeling of throat swelling but denied dyspnea or wheezing; Note IV tx Cefotaxime (3rd gen) without rash Penicillins Shortness of Breath PAST SURGICAL HISTORY Procedure Laterality Date APPENDECTOMY BIOPSY CERVIX SINGLE/MULT/EXCISION OF LESION SPX CATARACT SURGERY, COMPLEX 2010 CHOLECYSTECTOMY Cholecystectomy COLONOSCOPY FLX DX W/COLLJ SPEC WHEN PFRMD 06/03/05 Colonoscopy with bx COLONOSCOPY FLX DX W/COLLJ SPEC WHEN PFRMD 06/03/05 Colonoscopy with polypectomy COLONOSCOPY FLX DX W/COLLJ SPEC WHEN PFRMD 08/13/2009 Colonoscopy-repeat in 3 years (-2012) COLSC FLX W/RMVL OF TUMOR POLYP LESION SNARE TQ 11/07/14 hyperplastic polyp - 5 year follow up - h/o polyps ESOPHAGOGASTRODUODENOSCOPY TRANSORAL DIAGNOSTIC 05/30/05 EGD LAPAROSCOPIC HEMICOLECTOMY Right 2006 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 FAMILY HISTORY Problem Relation Age of Onset Heart Mother Stroke Mother Heart Father heart attack Social History Tobacco Use Smoking status: Never Smokeless tobacco: Never Vaping Use Vaping Use: Never used Substance Use Topics Alcohol use: No Drug use: No REVIEW OF SYSTEMS GENERAL: Negative for Malaise, significant weight loss, fever RESPIRATORY: Negative for cough, wheezing and shortness of breath CARDIOVASCULAR: Negative for chest pain, leg swelling and palpitations GI: Negative for abdominal discomfort, blood in stools or black stools and change in bowel habits : Negative for dysuria, frequency and incontinence MUSCULOSKELETAL: Negative for joint pain or swelling, back pain, and muscle pain. SKIN: Negative for lesions, rash, and itching. HEMATOLOGY/LYMPHOLOGY Negative for prolonged bleeding, bruising easily, and swollen nodes. ENDOCRINE: Negative for cold or heat intolerance, polyuria, polydipsia and goiter. NEURO: negative Physical Exam: Constitutional: Pt is a well developed 82 year old female who is alert, oriented and cooperative Eyes: Following during examination. No redness or drainage. Respiratory: RR normal and nonlabored. Even breathing. No evidence of distress or shortness of breath. Psychology: Patient is engaged during conversation. Normal affect and mood. Does not appear depressed or anxious during encounter. Vascular: Dorsalis pedis and posterior tibial pulses palpable right and nonpalpable left Capillary Fill time < 5 seconds to digits 1-5 b/l Skin temperature warm to warm proximal to distal b/l Hair growth present to digits Non-Invasive Vascular Laboratory [place] [facility] Lower Extremity Arterial Physiology Study Bilateral/Complete Date of service/time: 04/01/2022 10:52:31 AM Name: MRS. DINAH NELSON Date of : 1940 Age: 81 years Gender: F Medical History PAD: Yes Hypertension: Yes Clinical Indication Claudication. TECHNIQUE -------- An arterial physiological examination was performed, including measurement of blood pressures using continuous wave Doppler and recording of plethysmographic with or without Doppler waveforms at the below-mentioned limb segments. FINDINGS -------- RIGHT SIDE AT REST Right Doppler Waveforms Dorsalis pedis: Multiphasic. Post tibial: Multiphasic. Right Pressures Brachial: 139 mmHg Ankle dorsalis pedis: 142 mmHg DAYSI: 1.02 Ankle posterior tibial: 133 mmHg DAYSI: 0.96 Right PVR Waveforms Ankle: Normal. Transmetatarsal: Normal. Digit: Normal. LEFT SIDE AT REST Left Doppler Waveforms Dorsalis pedis: Monophasic. Post tibial: Monophasic. Left Pressures Brachial: 138 mmHg Ankle dorsalis pedis: 82 mmHg DAYSI: 0.59 Ankle posterior tibial: 79 mmHg DAYSI: 0.57 Left PVR Waveforms Ankle: Moderately dampened. Transmetatarsal: Moderately dampened. Digit: Moderately dampened. IMPRESSION RIGHT SIDE Resting right ankle brachial index: 1.02 Normal ankle brachial index at rest in the right leg. Right ankle: Normal at rest. LEFT SIDE Resting left ankle brachial index: 0.59 Abnormal ankle brachial index at rest diagnostic of peripheral artery disease. Left ankle: Moderate disease at rest. Technologist: Teetee Briggs Rafal Ordering physician: KIRSTEN LEON Interpreting physician: EBONY Ruth DO Neurological: intact light touch/epicritic sensation + jacqui sign left intact protective sensation no significant neurological deficits Dermatological: Nails 1-5 b/l appear normal. Webspaces clean and dry 1-4 b/l. Skin appears well hydrated and supple. good color, texture, turgor. No open lesions present. No callosities present. Musculoskeletal/Orthopaedic: Patient has pain to palpation of left 2nd interspace Foot type is neutral structurally AJ ROM is full with knee extended and flexed 1st MPJ is full when loaded and no pain or crepitus are noted with ROM. MTJ, STJ are full and free of pain and crepitus. +5/5 muscle strength dorsiflexion, plantarflexion, inversion, eversion b/l Radiographs: 3 views left foot ordered December 23, 2022: I have personally reviewed and interpreted these XR myself: no acute fracture ASSESSMENT: (D36.10) Neuroma (primary encounter diagnosis) (M79.691) Left foot pain PLAN: 1. History and physical examination performed. 2. XR reviewed with patient and interpreted today 3. Suspect neuroma. Will dispense gel inserts 4. If pain worsens, could consider oral steroid vs steroid injection 5. Reviewed pvr. Pad to left foot but do not feel this pain is vascular related 6. Of note, she does have hypopigmented lesion to right leg, likely nevus and left upper arm. The lesion to left upper arm does have concern for possible skin cancer. Would recommend derm referral. She does see Dr. Ahuja. Would have her see Dr. Ahuja for this 7. F/u prn Gabriella Govea DPM Podiatry [address] [facility] [address] Dept: [phone] Dept AMB ROOMING INTAKE FLOWSHEET DATA Pain Pain Level: 5 Pain Location: Foot-Left Description: Shooting, Pressure Duration Amount of Time: (few) Duration Units: Months Frequency: Continuous Intervention/Comfort measure: Relaxation, Reposition. Patient presents with: Left Foot - New, Pain Patient presents for Left foot pain that has been going on for a few months. Pain is primarily located to the ball of her foot, states that sometimes it radiates towards the arch. Patient denies any injury. Has not found a pattern of what makes the pain worse or better. documented in this encounter [facility] 12-23-2022 Instructions Gabriella Govea - 12/23/2022 9:55 AM EDT Powerstep Original Full length. Can purchase at [employer] here in [place], [employer] in [place] or [place]. Also can find in [place] in [facility]. Powersteps can also be purchased online, starting around $45.00 If you have a metatarsal or dancer pad for your feet apply the pad directly to the insole so you can interchange between your shoes. Find a shoe with a removable insole and take this out and replace with your powerstep insole. Always bring powersteps with you when shopping for shoes so that you can make sure that everything fits well together documented in this encounter [facility] 11-21-2022 Note HNO ID: [id number] Author: Tamiko Quinn APRN.CNP Service: ? Author Type: Nurse Practitioner Type: Progress Notes Filed: 11/21/2022 10:00 AM Note Text: Dinah Nelson is a 82 year old female here for a Medicare Subsequent Annual Wellness Visit Health Risk Assessment In general, health is: Good Concerns with balance:Not at all Concerns with teeth or dentures:Not at all Concerns with sexual function:Not at all [place] anxious, stressed, angry, irritable, lonely, isolated, or had thoughts of hurting themself: Not at all Has little interest or pleasure in doing things: Not at all Bothered by feeling down, depressed, or hopeless: Not at all Needs help with grocery shopping, cooking, housework, bathing, grooming, dressing, eating, sitting or standing, walking, using the toilet, handling finances, taking medications, using the telephone, or driving: No Following safety precautions in the home environment and vehicle: removed throw rugs from floors, installed grab bars in the bathroom, handrails in stairwells, having adequate lighting, wearing seatbelt at all times?: Yes Smokes cigarettes, vapes, or chew tobacco: No Eats healthy foods including fruits, vegetables, whole grains, and fiber-rich foods: Nearly every day Number of days per week engages in exercise: no routine exercise but does a lot of work around the house and in the yard. Stays very active Average alcohol consumption: No Current Providers Specialists: I have reviewed specialist-related care of the patient in the medical record. Current care team: Patient Care Team: Bennett Weir MD as PCP - General (Internal Medicine) Gay E Kosciewicz, RN as Psychiatric Clinical Nurse Specialist Dr. Leon-vascular Dr. Farooq-general surgery (thyroid nodules) Outside specialists- [facility] (Dr. Rahman) Medical/Family history review Reviewed and updated problem list, medical/surgical/family/social history, medications, and allergies. Opioid use review Patient is not currently using opioids. Depression screening Depression Screening PHQ-2 Score 07/22/2022 0 Depression screening tool completed and reviewed. Based on score and interview, patient is not at risk for depression. Screening tool discussed with patient, and I recommended no further intervention at this time. Cognitive screening Mini Cog Score: 5 Cognitive screening reviewed and no further action needed (score 3-5) Functional Observation Was the patient's timed Up AND Go test unsteady or ? 12 seconds? No Advance Care Planning End of Life planning discussed, including patient's advanced directive wishes: Yes Measurements BP 125/72 Pulse 88 Resp 14 Ht 5' 2.205 (1.58m) Wt 164 lb (74.4kg) BMI 29.80 kg/(m2). Lower Ext: no edema in LE bilaterally, diminished distal pulses, capillary refill < 2 seconds. Skin temperature normal. Bottom of left foot just below the toes tender with palpation. Visual acuity (required for Welcome to Medicare): follows with optometry/ophthalmology Hearing Evaluation: within normal limits ASSESSMENT/PLAN: 1. Medicare annual wellness visit, subsequent - ICD9: V70.0, ICD10: Z00.00 (primary diagnosis) The following prevention plan was discussed during the office visit and provided to the patient: - fall risk reduction - Counseled on healthy diet and regular exercise - Calcium intake with supplements or by diet of 1000 mg/day for under 50, 8477-9358 mg/day for 50+ - Discussed need and benefit for weight loss. BMI 29.80 kg/(m2) - Patient was counseled [id number]-[id number] by myself (the billing provider) for the following immunizations and vaccine components, including side effects: Shingrix. Patient will check with insurance - follow-up for medicare annual exam in one year 2. Left foot pain - ICD9: 729.5, ICD10: M79.672 Pain in the bottom of her foot by her toes. Possibly due to PVD. Last PVR's showed moderate disease. Recommend referral to podiatry. - CONSULT TO PODIATRY Tamiko Quinn APRN.TOMASA [facility] 11-21-2022 Instructions Tamiko Quinn APRN.TOMASA - 11/21/2022 9:43 AM EDT The following prevention plan is recommended: SHINGRIX VACCINE(1 of 2) Never done WHAT YOU CAN DO TO PREVENT FALLS Many falls can be prevented. By making some changes, you can lower your chances of falling. Four things YOU can do to prevent falls for you* and your caregiver 1. Begin a regular exercise program Exercise is one of the most important ways to lower your chances of falling. It makes you stronger and helps you feel better. Exercises that improve balance and coordination (like Omar Chi) are the most helpful. Lack of exercise leads to weakness and increases your chances of falling. Ask your doctor or health care provider about the best type of exercise program for you. 2. Have your health care provider review your medicines Have your doctor or pharmacist review all the medicines you take, even aqiu-fki-rnlulew medicines. As you get older, the way medicines work in your body can change. Some medicines, or combinations of medicines, can make you sleepy or dizzy and can cause you to fall. 3. Have your vision checked Have your eyes checked by an eye doctor at least once a year. You may be wearing the wrong glasses or have a condition like glaucoma or cataracts that limits your vision. Poor vision can increase your chances of falling. 4. Make your home safer About half of all falls happen at home. To make your home safer: Remove things you can trip over (like papers, books, clothes, and shoes) from stairs and places where you walk. Remove small throw rugs or use double-sided tape to keep the rugs from slipping. Keep items you use often in cabinets you can reach easily without using a step stool. Have grab bars put in next to your toilet and in the tub or shower. Use non-slip mats in the bathtub and on shower floors. Improve the lighting in your home. As you get older, you need brighter lights to see well. Hang light-weight curtains or shades to reduce glare. Have handrails and lights put in on all staircases. Wear shoes both inside and outside the house. Avoid going barefoot or wearing slippers. For more information, contact: [facility] for Disease Control and Prevention www.cdc.gov/injury * This information may not apply if you have certain medical conditions. documented in this encounter [facility] 11-21-2022 History of Presen t illness Narrative Dinah Nelson is a 82 year old female here for a Medicare Subsequent Annual Wellness Visit Health Risk Assessment In general, health is: Good Concerns with balance:Not at all Concerns with teeth or dentures:Not at all Concerns with sexual function:Not at all [place] anxious, stressed, angry, irritable, lonely, isolated, or had thoughts of hurting themself: Not at all Has little interest or pleasure in doing things: Not at all Bothered by feeling down, depressed, or hopeless: Not at all Needs help with grocery shopping, cooking, housework, bathing, grooming, dressing, eating, sitting or standing, walking, using the toilet, handling finances, taking medications, using the telephone, or driving: No Following safety precautions in the home environment and vehicle: removed throw rugs from floors, installed grab bars in the bathroom, handrails in stairwells, having adequate lighting, wearing seatbelt at all times?: Yes Smokes cigarettes, vapes, or chew tobacco: No Eats healthy foods including fruits, vegetables, whole grains, and fiber-rich foods: Nearly every day Number of days per week engages in exercise: no routine exercise but does a lot of work around the house and in the yard. Stays very active Average alcohol consumption: No Current Providers Specialists: I have reviewed specialist-related care of the patient in the medical record. Current care team: Patient Care Team: Bennett Weir MD as PCP - General (Internal Medicine) Gay Salomon RN as Psychiatric Clinical Nurse Specialist Dr. Leon-vascular Dr. Farooq-general surgery (thyroid nodules) Outside specialists- [facility] (Dr. Rahman) Medical/Family history review Reviewed and updated problem list, medical/surgical/family/social history, medications, and allergies. Opioid use review Patient is not currently using opioids. Depression screening Depression Screening PHQ-2 Score 07/22/2022 0 Depression screening tool completed and reviewed. Based on score and interview, patient is not at risk for depression. Screening tool discussed with patient, and I recommended no further intervention at this time. Cognitive screening Mini Cog Score: 5 Cognitive screening reviewed and no further action needed (score 3-5) Functional Observation Was the patient's timed Up & Go test unsteady or ? 12 seconds? No Advance Care Planning End of Life planning discussed, including patient's advanced directive wishes: Yes Measurements BP 125/72 Pulse 88 Resp 14 Ht 5' 2.205 (1.58m) Wt 164 lb (74.4kg) BMI 29.80 kg/(m^2). Lower Ext: no edema in LE bilaterally, diminished distal pulses, capillary refill < 2 seconds. Skin temperature normal. Bottom of left foot just below the toes tender with palpation. Visual acuity (required for Welcome to Medicare): follows with optometry/ophthalmology Hearing Evaluation: within normal limits ASSESSMENT/PLAN: 1. Medicare annual wellness visit, subsequent - ICD9: V70.0, ICD10: Z00.00 (primary diagnosis) The following prevention plan was discussed during the office visit and provided to the patient: - fall risk reduction - Counseled on healthy diet and regular exercise - Calcium intake with supplements or by diet of 1000 mg/day for under 50, 6086-4883 mg/day for 50+ - Discussed need and benefit for weight loss. BMI 29.80 kg/(m^2) - Patient was counseled [id number]-[id number] by myself (the billing provider) for the following immunizations and vaccine components, including side effects: Shingrix. Patient will check with insurance - follow-up for medicare annual exam in one year 2. Left foot pain - ICD9: 729.5, ICD10: M79.672 Pain in the bottom of her foot by her toes. Possibly due to PVD. Last PVR's showed moderate disease. Recommend referral to podiatry. - CONSULT TO PODIATRY Tamiko Quinn APRN.CNP documented in this encounter [facility] 11-18-2022 Note HNO ID: [id number] Author: Gay Salomon RN Service: ? Author Type: Registered Nurse Type: Progress Notes Filed: 11/18/2022 10:44 AM Note Text: [facility] Telephonic Outreach Provider Action/FYI Contacted for: Routine Telephonic Outreach Contact made with patient: Yes Patient identified by name and date of . Discussed care with patient Are you experiencing any new or worsening symptoms you need to talk about today? No Disease Specific Do you check your blood pressure at home? Yes, Enter readings: 129/73 Do you have new or worsening shortness of breath with activity? No Based on valve technician, the following disposition is advised: No symptoms or symptoms present, not severe. Routed to: No Action Needed JENA Education Provided this Outreach: No Gay Salomon RN November 18, 2022 10:42 AM [facility] 11-18-2022 History of Presen t illness Narrative [facility] Telephonic Outreach Provider Action/FYI Contacted for: Routine Telephonic Outreach Contact made with patient: Yes Patient identified by name and date of . Discussed care with patient Are you experiencing any new or worsening symptoms you need to talk about today? No Disease Specific Do you check your blood pressure at home? Yes, Enter readings: 129/73 Do you have new or worsening shortness of breath with activity? No Based on valve technician, the following disposition is advised: No symptoms or symptoms present, not severe. Routed to: No Action Needed JENA Education Provided this Outreach: No Gay Salomon RN November 18, 2022 10:42 AM [facility] Telephonic Outreach Provider Action/FYI Contacted for: Routine Telephonic Outreach Contact made with patient: No, left message. Gay Salomon RN November 17, 2022 4:14 PM documented in this encounter [facility] 11-17-2022 Note HNO ID: [id number] Author: Gay Salomon RN Service: ? Author Type: Registered Nurse Type: Progress Notes Filed: 11/18/2022 10:44 AM Note Text: CD Telephonic Outreach Provider Action/FYI Contacted for: Routine Telephonic Outreach Contact made with patient: No, left message. Gay Salomon RN November 17, 2022 4:14 PM [facility] 11-17-2022 Note Patient Outreach (AM [facility]) DINAH NELSON ([id number]) 1940 F Date Time Provider Department 11/17/22 GAY SALOMON During your visit today, we recorded the following information about you: Gay Salomon RN 11/18/2022 10:44 AM Signed [facility] Telephonic Outreach Provider Action/FYI Contacted for: Routine Telephonic Outreach Contact made with patient: No, left message. Gay Salomon RN November 17, 2022 4:14 PM Gay Salomon RN 11/18/2022 10:44 AM Signed [facility] Telephonic Outreach Provider Action/FYI Contacted for: Routine Telephonic Outreach Contact made with patient: Yes Patient identified by name and date of . Discussed care with patient Are you experiencing any new or worsening symptoms you need to talk about today? No Disease Specific Do you check your blood pressure at home? Yes, Enter readings: 129/73 Do you have new or worsening shortness of breath with activity? No Based on valve technician, the following disposition is advised: No symptoms or symptoms present, not severe. Routed to: No Action Needed JENA Education Provided this Outreach: No Gay Salomon RN November 18, 2022 10:42 AM Allergies As of Date: 11/17/2022 Noted Allergy Reaction LOVASTATIN 01/03/2015 17 - Myalgia Comments: Severe myalgia, gi upset, [id number] REDUCTASE INHIBIT*03/22/2015 17 - Myalgia CRESTOR (ROSUVASTATIN CALCIUM) 06/11/2012 14 - Other: See Comments Comments: Myalgia, weakness LIPITOR (ATORVASTATIN CALCIUM) 03/22/2015 17 - Myalgia BACTRIM (SULFAMETHOXAZOLE) 10/04/2009 Comments: ? Questionable- thinks may have had upset stomach due to Flagyl CIPRO (CIPROFLOXACIN) 10/03/2009 Comments: unsteady, near syncope IVP DYE (IODINE) 04/09/2005 4 - Hives 7 - Swelling 12 - Shortness of Breath KEFLEX (CEPHALEXIN) 04/13/2005 2 - Rash Comments: Generalized red rash; also had some feeling of throat swelling but denied dyspnea or wheezing; Note IV tx Cefotaxime (3rd gen) without rash PENICILLINS 04/11/2005 12 - Shortness of Breath Date Reviewed: 07/22/2022 Reviewed by: Makenzie Larson LPN - Fully Assessed Reason for Visit: Community Monitoring Outreach [Other] Cmt: CDM Follow Up Prescriptions as of 11/18/2022 - fexofenadine (NORY) 60 mg tablet Take 60 mg by mouth twice daily as needed. - aspirin, enteric coated (ASPIR-LOW) 81 mg EC tablet Take 1 tablet by mouth every other day. 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] 06/03/2005 02/22/2015 BENIGN NEOPLASM LG BOWEL [D12.6] 06/03/2005 Diverticulosis of colon (without mention of hem*06/03/2005 02/22/2015 Personal history of colonic polyps [Z86.010] 08/13/2009 02/22/2015 Diverticulitis [K57.92] 11/13/2009 04/15/2011 Diverticulosis [K57.90] 04/15/2011 03/24/2016 PMB (postmenopausal bleeding) [N95.0] 06/20/2011 03/24/2016 KOLTON favor benign [LTR1269] 06/20/2011 03/24/2016 Hematuria [R31.9] 01/16/2014 02/22/2015 Mixed hyperlipidemia [E78.2] 03/24/2016 Atherosclerosis of arteries [I70.90] 03/24/2016 07/22/2022 Aortic valve sclerosis [I35.8] 03/24/2016 Chronic urticaria [L50.8] 03/04/2017 Obesity, Class I, BMI 30-34.9 [E66.9] 09/27/2018 Multiple thyroid nodules [E04.2] 11/08/2019 Essential hypertension [I10] 07/24/2020 PVD (peripheral vascular disease) with claudica*07/27/2020 Raynaud's phenomenon without gangrene [I73.00] 11/27/2020 Anxiety about health [F41.8] 08/30/2021 Polymyalgia rheumatica (HCC) [M35.3] 09/16/2021 07/23/2022 Synovitis of wrist [M65.9] 01/20/2022 07/23/2022 Encounter Status:Closed by GAY SALOMON on 11/18/22 [facility] 10-07-2022 Note HNO ID: [id number] Author: Gay Salomon RN Service: ? Author Type: Registered Nurse Type: Progress Notes Filed: 10/07/2022 10:17 AM Note Text: [facility] Telephonic Outreach Provider Action/FYI Contacted for: Routine Telephonic Outreach Contact made with patient: Yes Patient identified by name and date of . Discussed care with patient Are you experiencing any new or worsening symptoms you need to talk about today? No Disease Specific Do you check your blood pressure at home? Yes, Enter readings: 136/76 Do you have new or worsening shortness of breath with activity? No Do you check your daily weight at home? Yes, Have you noticed a sudden gain in weight greater than three pounds in a day or three pounds in a week? No Based on valve technician, the following disposition is advised: No symptoms or symptoms present, not severe. Routed to: No Action Needed JENA Education Provided this Outreach: No Gay Salomon RN October 07, 2022 10:17 AM [facility] 10-06-2022 Note HNO ID: [id number] Author: Gay Salomon RN Service: ? Author Type: Registered Nurse Type: Progress Notes Filed: 10/07/2022 10:17 AM Note Text: CD Telephonic Outreach Provider Action/FYI Contacted for: Routine Telephonic Outreach Contact made with patient: No, left message. Gay Salomon RN October 06, 2022 1:53 PM [facility] 10-06-2022 Note Patient Outreach (AM [facility]) DINAH NELSON ([id number]) 1940 F Date Time Provider Department 10/06/22 GAY SALOMON During your visit today, we recorded the following information about you: Gay Salomon RN 10/07/2022 10:17 AM Signed [facility] Telephonic Outreach Provider Action/FYI Contacted for: Routine Telephonic Outreach Contact made with patient: No, left message. Gay Salomon RN October 06, 2022 1:53 PM Gay Salomon RN 10/07/2022 10:17 AM Signed [facility] Telephonic Outreach Provider Action/FYI Contacted for: Routine Telephonic Outreach Contact made with patient: Yes Patient identified by name and date of . Discussed care with patient Are you experiencing any new or worsening symptoms you need to talk about today? No Disease Specific Do you check your blood pressure at home? Yes, Enter readings: 136/76 Do you have new or worsening shortness of breath with activity? No Do you check your daily weight at home? Yes, Have you noticed a sudden gain in weight greater than three pounds in a day or three pounds in a week? No Based on valve technician, the following disposition is advised: No symptoms or symptoms present, not severe. Routed to: No Action Needed JENA Education Provided this Outreach: No Gay Salomon RN October 07, 2022 10:17 AM Allergies As of Date: 10/06/2022 Noted Allergy Reaction LOVASTATIN 01/03/2015 17 - Myalgia Comments: Severe myalgia, gi upset, [id number] REDUCTASE INHIBIT*03/22/2015 17 - Myalgia CRESTOR (ROSUVASTATIN CALCIUM) 06/11/2012 14 - Other: See Comments Comments: Myalgia, weakness LIPITOR (ATORVASTATIN CALCIUM) 03/22/2015 17 - Myalgia BACTRIM (SULFAMETHOXAZOLE) 10/04/2009 Comments: ? Questionable- thinks may have had upset stomach due to Flagyl CIPRO (CIPROFLOXACIN) 10/03/2009 Comments: unsteady, near syncope IVP DYE (IODINE) 04/09/2005 4 - Hives 7 - Swelling 12 - Shortness of Breath KEFLEX (CEPHALEXIN) 04/13/2005 2 - Rash Comments: Generalized red rash; also had some feeling of throat swelling but denied dyspnea or wheezing; Note IV tx Cefotaxime (3rd gen) without rash PENICILLINS 04/11/2005 12 - Shortness of Breath Date Reviewed: 07/22/2022 Reviewed by: Makenzie Larson LPN - Fully Assessed Reason for Visit: Community Monitoring Outreach [Other] Cmt: CDM Follow Up Prescriptions as of 10/07/2022 - fexofenadine (NORY) 60 mg tablet Take 60 mg by mouth twice daily as needed. - aspirin, enteric coated (ASPIR-LOW) 81 mg EC tablet Take 1 tablet by mouth every other day. 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] 06/03/2005 02/22/2015 BENIGN NEOPLASM LG BOWEL [D12.6] 06/03/2005 Diverticulosis of colon (without mention of hem*06/03/2005 02/22/2015 Personal history of colonic polyps [Z86.010] 08/13/2009 02/22/2015 Diverticulitis [K57.92] 11/13/2009 04/15/2011 Diverticulosis [K57.90] 04/15/2011 03/24/2016 PMB (postmenopausal bleeding) [N95.0] 06/20/2011 03/24/2016 KOLTON favor benign [[id number]] 06/20/2011 03/24/2016 Hematuria [R31.9] 01/16/2014 02/22/2015 Mixed hyperlipidemia [E78.2] 03/24/2016 Atherosclerosis of arteries [I70.90] 03/24/2016 07/22/2022 Aortic valve sclerosis [I35.8] 03/24/2016 Chronic urticaria [L50.8] 03/04/2017 Obesity, Class I, BMI 30-34.9 [E66.9] 09/27/2018 Multiple thyroid nodules [E04.2] 11/08/2019 Essential hypertension [I10] 07/24/2020 PVD (peripheral vascular disease) with claudica*07/27/2020 Raynaud's phenomenon without gangrene [I73.00] 11/27/2020 Anxiety about health [F41.8] 08/30/2021 Polymyalgia rheumatica (HCC) [M35.3] 09/16/2021 07/23/2022 Synovitis of wrist [M65.9] 01/20/2022 07/23/2022 Encounter Status:Closed by GAY SALOMON on 10/07/22 [facility] 09-19-2022 Miscellaneous Notes September 22, 2022 PID: [id number] Dinah Nelson [address] [place] [address] Dear Ms. Nelson, We are pleased to inform you that the results of your recent breast imaging exam on 09/18/2022 are normal. Early detection of cancer is very important. We also understand recommendations regarding breast cancer screening are controversial. Please discuss with your primary care provider which strategy is best for you and whether a mammogram is right for you. Your imaging studies and report will be kept on file at [facility] as part of your permanent medical record and are available for your continuing care. Thank you for allowing us to help in meeting your health care needs. Sincerely, Dr. Orozco Interpreting Radiologist [facility] (Normal over 40) documented in this encounter [facility] 09-18-2022 Note HNO ID: [id number] Author: Leonel Garcia Service: ? Author Type: Furniture Shampooer Type: Progress Notes Filed: 09/18/2022 2:19 PM Note Text: Radiology Service Progress Note PATIENT NAME: Dinah Nelson DATE OF SERVICE: September 18, 2022 TIME: 2:02 PM PATIENT IDENTITY VERIFICATION COMPLETED USING TWO (2) IDENTIFIERS: Name and Date of confirmed by patient verbally. FALL SCREENING: Has the patient had 2 falls in the last year or 1 fall with injury or currently using an Ambulatory Assistive Device (Walker, Cane, Wheelchair, Crutches, etc.)? No PATIENT GENDER DATA: Female. status: : No status: NO. PATIENT RELEVANT IMPLANT DATA REVIEWED: Not Applicable RADIOLOGY DEPARTMENT: Mammography PERIPHERAL IV DATA: Not applicable SIGNED BY: Leonel Garcia September 18, 2022 2:02 PM [facility] 09-18-2022 History of Presen t illness Narrative Radiology Service Progress Note PATIENT NAME: Dinah Nelson DATE OF SERVICE: September 18, 2022 TIME: 2:02 PM PATIENT IDENTITY VERIFICATION COMPLETED USING TWO (2) IDENTIFIERS: Name and Date of confirmed by patient verbally. FALL SCREENING: Has the patient had 2 falls in the last year or 1 fall with injury or currently using an Ambulatory Assistive Device (Walker, Cane, Wheelchair, Crutches, etc.)? No PATIENT GENDER DATA: Female. status: : No status: NO. PATIENT RELEVANT IMPLANT DATA REVIEWED: Not Applicable RADIOLOGY DEPARTMENT: Mammography PERIPHERAL IV DATA: Not applicable SIGNED BY: Leonel Garcia September 18, 2022 2:02 PM documented in this encounter [facility] 09-16-2022 Miscellaneous Notes Patient calling to schedule appointments. Patient denies any new or worsening symptoms of which a provider is not aware:Yes. Conferenced to Appointment center to schedule appointment. documented in this encounter [facility] 08-29-2022 Note HNO ID: [id number] Author: Meg Payne LPN Service: ? Author Type: ? Type: Progress Notes Filed: 08/29/2022 10:11 AM Note Text: My chart message to pt to call to arrange the mammogram. [facility] 08-28-2022 Note Patient Outreach (AM [facility]) DINAH NELSON ([id number]) 1940 F Date Time Provider Department 08/28/22 CONCEPCIÓN EVANS During your visit today, we recorded the following information about you: Concepción Urbano RN 08/28/2022 2:05 PM Signed [facility] TELEPHONIC OUTREACH Provider Action/FYI: Patient requesting order for screening mammogram Contact made with patient: Yes Patient identified by name and . Discussed care with patient It?s nice talking to you again. As a reminder, this is our bi-weekly check-in where I will be asking you questions about your health. This will only take a few minutes of your time. Is this a good time? Yes Symptoms What Chronic Disease(s) does the patient have: Hypertension Do you check your blood pressures at home? No Needs new BP kit Do you have new or worse shortness of breath with activity? No Do you feel like you are dehydrated for any reason, including not being able to eat or drink normally, or having less urine/much darker urine than normal for you? No Do you check your daily weight at home? Yes, Have you noticed a sudden gain in weight greater than three pounds in a day or three pounds in a week? No Are you having any other symptoms that your PCP needs to know about? No Symptoms: Symptom Escalation JENA Education Ordered -: No The patient required an escalation for symptom(s)? No Medications Do you have any questions about taking your medication or which medications you should be on? No Do you need any medication refills at this time, including any of the medications you might take only when needed? No Social We would like to make sure you have what you need so that your basic needs are met- including your personal safety, food, housing, transportation and medications? Would you like to speak with a social work steam heating installer to help give you support for any of these needs? No It can be normal to feel anxious or down during a time like this. Would you like to talk to a mental health professional about how you have been feeling? No Closing Thank you for taking the time to talk with me today. We want to work with you to ensure that we are keeping your medical condition(s) well-controlled and to keep you healthy and out of the doctor's office or hospital. It?s also not too late for me to sign you up for automated weekly questionnaires through [employer]. This is an easy way for us to stay connected each week. Are you interested? No, I understand. We can always sign you up in the future if you change your mind. Just as a reminder, will continue to call you every other week to check in on your health. Our calls should take 10-15 minutes or less. Remember, if you have concerns in between our calls, please call your PCP's office right away. Thank you. Enter next patient outreach date for two weeks on the same day of the week as today in the Track Pt Outreach and End outreach. Bennett Weir MD 08/29/2022 8:18 AM Signed Addended by: BENNETT WEIR on: 08/29/2022 08:18 AM Modules accepted: Shantel Payne LPN 08/29/2022 10:11 AM Signed My chart message to pt to call to arrange the mammogram. Allergies As of Date: 08/28/2022 Noted Allergy Reaction LOVASTATIN 01/03/2015 17 - Myalgia Comments: Severe myalgia, gi upset, CHOCHTI-WLC-IHR REDUCTASE INHIBIT*03/22/2015 17 - Myalgia CRESTOR (ROSUVASTATIN CALCIUM) 06/11/2012 14 - Other: See Comments Comments: Myalgia, weakness LIPITOR (ATORVASTATIN CALCIUM) 03/22/2015 17 - Myalgia BACTRIM (SULFAMETHOXAZOLE) 10/04/2009 Comments: ? Questionable- thinks may have had upset stomach due to Flagyl CIPRO (CIPROFLOXACIN) 10/03/2009 Comments: unsteady, near syncope IVP DYE (IODINE) 04/09/2005 4 - Hives 7 - Swelling 12 - Shortness of Breath KEFLEX (CEPHALEXIN) 04/13/2005 2 - Rash Comments: Generalized red rash; also had some feeling of throat swelling but denied dyspnea or wheezing; Note IV tx Cefotaxime (3rd gen) without rash PENICILLINS 04/11/2005 12 - Shortness of Breath Date Reviewed: 07/22/2022 Reviewed by: Makenzie Larson LPN - Fully Assessed Reason for Visit: community monitoring outreach [Other] Cmt: CDM follow up Primary Visit Diagnosis:Encounter for screening mammogram for malignant neoplasm of breast [Z12.31] Order(s):[facility] SCREENING [[id number]] Order #: [id number] FUTURE Prescriptions as of 08/29/2022 - fexofenadine (NORY) 60 mg tablet Take 60 mg by mouth twice daily as needed. - aspirin, enteric coated (ASPIR-LOW) 81 mg EC tablet Take 1 tablet by mouth every other day. 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 [facility] 08-28-2022 Note HNO ID: [id number] Author: Concepción Evans RN Service: ? Author Type: Registered Nurse Type: Progress Notes Filed: 08/28/2022 2:05 PM Note Text: INSIGHT CDM TELEPHONIC OUTREACH Provider Action/FYI: Patient requesting order for screening mammogram Contact made with patient: Yes Patient identified by name and . Discussed care with patient It?s nice talking to you again. As a reminder, this is our bi-weekly check-in where I will be asking you questions about your health. This will only take a few minutes of your time. Is this a good time? Yes Symptoms What Chronic Disease(s) does the patient have: Hypertension Do you check your blood pressures at home? No Needs new BP kit Do you have new or worse shortness of breath with activity? No Do you feel like you are dehydrated for any reason, including not being able to eat or drink normally, or having less urine/much darker urine than normal for you? No Do you check your daily weight at home? Yes, Have you noticed a sudden gain in weight greater than three pounds in a day or three pounds in a week? No Are you having any other symptoms that your PCP needs to know about? No Symptoms: Symptom Escalation JENA Education Ordered -: No The patient required an escalation for symptom(s)? No Medications Do you have any questions about taking your medication or which medications you should be on? No Do you need any medication refills at this time, including any of the medications you might take only when needed? No Social We would like to make sure you have what you need so that your basic needs are met- including your personal safety, food, housing, transportation and medications? Would you like to speak with a social work steam heating installer to help give you support for any of these needs? No It can be normal to feel anxious or down during a time like this. Would you like to talk to a mental health professional about how you have been feeling? No Closing Thank you for taking the time to talk with me today. We want to work with you to ensure that we are keeping your medical condition(s) well-controlled and to keep you healthy and out of the doctor's office or hospital. It?s also not too late for me to sign you up for automated weekly questionnaires through [employer]. This is an easy way for us to stay connected each week. Are you interested? No, I understand. We can always sign you up in the future if you change your mind. Just as a reminder, will continue to call you every other week to check in on your health. Our calls should take 10-15 minutes or less. Remember, if you have concerns in between our calls, please call your PCP's office right away. Thank you. Enter next patient outreach date for two weeks on the same day of the week as today in the Track Pt Outreach and End outreach. [facility] 08-28-2022 History of Presen t illness Narrative INSIGHT CDM TELEPHONIC OUTREACH Provider Action/FYI: Patient requesting order for screening mammogram Contact made with patient: Yes Patient identified by name and . Discussed care with patient It s nice talking to you again. As a reminder, this is our bi-weekly check-in where I will be asking you questions about your health. This will only take a few minutes of your time. Is this a good time? Yes Symptoms What Chronic Disease(s) does the patient have: Hypertension Do you check your blood pressures at home? No Needs new BP kit Do you have new or worse shortness of breath with activity? No Do you feel like you are dehydrated for any reason, including not being able to eat or drink normally, or having less urine/much darker urine than normal for you? No Do you check your daily weight at home? Yes, Have you noticed a sudden gain in weight greater than three pounds in a day or three pounds in a week? No Are you having any other symptoms that your PCP needs to know about? No Symptoms: Symptom Escalation JENA Education Ordered -: No The patient required an escalation for symptom(s)? No Medications Do you have any questions about taking your medication or which medications you should be on? No Do you need any medication refills at this time, including any of the medications you might take only when needed? No Social We would like to make sure you have what you need so that your basic needs are met- including your personal safety, food, housing, transportation and medications? Would you like to speak with a social work steam heating installer to help give you support for any of these needs? No It can be normal to feel anxious or down during a time like this. Would you like to talk to a mental health professional about how you have been feeling? No Closing Thank you for taking the time to talk with me today. We want to work with you to ensure that we are keeping your medical condition(s) well-controlled and to keep you healthy and out of the doctor's office or hospital. It s also not too late for me to sign you up for automated weekly questionnaires through [employer]. This is an easy way for us to stay connected each week. Are you interested? No, I understand. We can always sign you up in the future if you change your mind. Just as a reminder, will continue to call you every other week to check in on your health. Our calls should take 10-15 minutes or less. Remember, if you have concerns in between our calls, please call your PCP's office right away. Thank you. Enter next patient outreach date for two weeks on the same day of the week as today in the Track Pt Outreach and End outreach. documented in this encounter [facility] 07-22-2022 Note HNO ID: [id number] Author: Bennett Weir MD Service: ? Author Type: Physician Type: Progress Notes Filed: 07/23/2022 8:42 AM Note Text: This note was created using [employer]. Subjective Dinah Nelson is a 82 year old female. Her hypertension was up and down without medications. She felt well and was here mainly to review her thyroid nodules and ultrasound. She had no symptoms of peripheral vascular disease at this time, and myalgias were mild. Review of Systems Constitutional: Negative. Respiratory: Negative. Cardiovascular: Negative. Musculoskeletal: Negative. Neurological: Negative. Psychiatric/Behavioral: Negative. 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 aspirin, enteric coated (ASPIR-LOW) 81 mg EC tablet Take 1 tablet by mouth every other day. No current facility-administered medications for this visit. Objective BP 110/70 (BP Site: Left Arm, BP Position: Sitting, BP Cuff Size: Large Adult) Pulse 80 Temp (!) 35.9 ?C (96.7 ?F) (Temporal) Resp 16 Wt 72.1 kg (159 lb) BMI 28.85 kg/m? Physical Exam Constitutional: General: She is not in acute distress. Cardiovascular: Rate and Rhythm: Normal rate and regular rhythm. Heart sounds: No murmur heard. No gallop. Pulmonary: Breath sounds: Normal breath sounds. Musculoskeletal: Right lower leg: No edema. Left lower leg: No edema. Neurological: General: No focal deficit present. Mental Status: She is alert. Component Latest Ref Rng AND Units 07/01/2022 Protein, Total 6.3 - 8.0 g/dL 6.6 Albumin 3.9 - 4.9 g/dL 4.2 Calcium 8.5 - 10.2 mg/dL 9.6 Bilirubin, Total 0.2 - 1.3 mg/dL 0.3 Alkaline Phosphatase 34 - 123 U/L 69 AST 13 - 35 U/L 14 ALT 7 - 38 U/L 13 Glucose 74 - 99 mg/dL 92 BUN 7 - 21 mg/dL 19 Creatinine 0.58 - 0.96 mg/dL 0.75 Sodium 136 - 144 mmol/L 140 Potassium 3.7 - 5.1 mmol/L 5.0 Chloride 97 - 105 mmol/L 103 CO2 22 - 30 mmol/L 26 Anion Gap 9 - 18 mmol/L 11 eGFR >=60 mL/min/1.73mA? 79 WBC 3.70 - 11.00 k/uL 8.20 RBC 3.90 - 5.20 m/uL 4.24 Hemoglobin 11.5 - 15.5 g/dL 14.4 Hematocrit 36.0 - 46.0 % 42.4 MCV 80.0 - 100.0 fL 100.0 MCH 26.0 - 34.0 pg 34.0 MCHC 30.5 - 36.0 g/dL 34.0 RDW-CV 11.5 - 15.0 % 14.9 Platelet Count 150 - 400 k/uL 238 MPV 9.0 - 12.7 fL 10.0 Absolute nRBC <0.01 k/uL <0.01 TSH 0.270 - 4.200 mIU/L 1.190 Free T4 0.9 - 1.7 ng/dL 1.0 Thyroid US discussed. Assessment and Plan 1. Multiple thyroid nodules - ICD9: 241.1, ICD10: E04.2 (primary diagnosis) Annual US x 5 years recommended. No biopsy needed at this time. Patient indicated understanding and willingness to follow recommendations. 2. Essential hypertension - ICD9: 401.9, ICD10: I10 Diet controlled. 3. Polymyalgia rheumatica (HCC) - ICD9: 725, ICD10: M35.3 Resolved. 4. PVD (peripheral vascular disease) with claudication (HCC) - ICD9: 443.9, ICD10: I73.9 Asymptomatic. Monitor. Bennett Weir MD [facility] 07-17-2022 Note Patient Outreach ([facility] [place]) DINAH NELSON ([id number]) 1940 F Date Time Provider Department 07/17/22 CONCEPCIÓN EVANS During your visit today, we recorded the following information about you: Concepción Urbano RN 07/17/2022 1:50 PM Signed INSIGHT CD TELEPHONIC OUTREACH Provider Action/I: Patient would like CDM telephonic management Has Healthy at Home resource information Reports doing very well, help if needed from family Requesting every 6 week follow up Contact made with patient: Yes Patient identified by name and . Discussed care with patient It?s nice talking to you again. As a reminder, this is our bi-weekly check-in where I will be asking you questions about your health. This will only take a few minutes of your time. Is this a good time? Yes Symptoms What Chronic Disease(s) does the patient have: HTN Do you check your blood pressures at home? Yes, Enter readings: 130s/70s Do you have new or worse shortness of breath with activity? No Do you feel like you are dehydrated for any reason, including not being able to eat or drink normally, or having less urine/much darker urine than normal for you? No Do you check your daily weight at home? Yes, Have you noticed a sudden gain in weight greater than three pounds in a day or three pounds in a week? No Are you having any other symptoms that your PCP needs to know about? No Symptoms: Symptom Escalation JENA Education Ordered -: No The patient required an escalation for symptom(s)? No Medications Do you have any questions about taking your medication or which medications you should be on? No Do you need any medication refills at this time, including any of the medications you might take only when needed? No Social We would like to make sure you have what you need so that your basic needs are met- including your personal safety, food, housing, transportation and medications? Would you like to speak with a social work steam heating installer to help give you support for any of these needs? No It can be normal to feel anxious or down during a time like this. Would you like to talk to a mental health professional about how you have been feeling? No Closing Thank you for taking the time to talk with me today. We want to work with you to ensure that we are keeping your medical condition(s) well-controlled and to keep you healthy and out of the doctor's office or hospital. It?s also not too late for me to sign you up for automated weekly questionnaires through [employer]. This is an easy way for us to stay connected each week. Are you interested? No, I understand. We can always sign you up in the future if you change your mind. Just as a reminder, will continue to call you every other week to check in on your health. Our calls should take 10-15 minutes or less. Remember, if you have concerns in between our calls, please call your PCP's office right away. Thank you. Enter next patient outreach date for two weeks on the same day of the week as today in the Track Pt Outreach and End outreach. Allergies As of Date: 07/17/2022 Noted Allergy Reaction LOVASTATIN 01/03/2015 17 - Myalgia Comments: Severe myalgia, gi upset, JZLHJIQ-WIY-SIT REDUCTASE INHIBIT*03/22/2015 17 - Myalgia CRESTOR (ROSUVASTATIN CALCIUM) 06/11/2012 14 - Other: See Comments Comments: Myalgia, weakness LIPITOR (ATORVASTATIN CALCIUM) 03/22/2015 17 - Myalgia BACTRIM (SULFAMETHOXAZOLE) 10/04/2009 Comments: ? Questionable- thinks may have had upset stomach due to Flagyl CIPRO (CIPROFLOXACIN) 10/03/2009 Comments: unsteady, near syncope IVP DYE (IODINE) 04/09/2005 4 - Hives 7 - Swelling 12 - Shortness of Breath KEFLEX (CEPHALEXIN) 04/13/2005 2 - Rash Comments: Generalized red rash; also had some feeling of throat swelling but denied dyspnea or wheezing; Note IV tx Cefotaxime (3rd gen) without rash PENICILLINS 04/11/2005 12 - Shortness of Breath Date Reviewed: 05/07/2022 Reviewed by: Makenzie Larson LPN - Fully Assessed Reason for Visit: community monitoring outreach [Other] Cmt: CDM follow up Prescriptions as of 07/17/2022 - fexofenadine (NORY) 60 mg tablet Take 60 mg by mouth twice daily as needed. - aspirin, enteric coated (ASPIR-LOW) 81 mg EC tablet Take 1 tablet by mouth every other day. 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 [facility] 07-17-2022 Note HNO ID: [id number] Author: Concepción Evans RN Service: ? Author Type: Registered Nurse Type: Progress Notes Filed: 07/17/2022 1:50 PM Note Text: INSIGHT CDM TELEPHONIC OUTREACH Provider Action/FYI: Patient would like CDM telephonic management Has Healthy at Home resource information Reports doing very well, help if needed from family Requesting every 6 week follow up Contact made with patient: Yes Patient identified by name and . Discussed care with patient It?s nice talking to you again. As a reminder, this is our bi-weekly check-in where I will be asking you questions about your health. This will only take a few minutes of your time. Is this a good time? Yes Symptoms What Chronic Disease(s) does the patient have: HTN Do you check your blood pressures at home? Yes, Enter readings: 130s/70s Do you have new or worse shortness of breath with activity? No Do you feel like you are dehydrated for any reason, including not being able to eat or drink normally, or having less urine/much darker urine than normal for you? No Do you check your daily weight at home? Yes, Have you noticed a sudden gain in weight greater than three pounds in a day or three pounds in a week? No Are you having any other symptoms that your PCP needs to know about? No Symptoms: Symptom Escalation JENA Education Ordered -: No The patient required an escalation for symptom(s)? No Medications Do you have any questions about taking your medication or which medications you should be on? No Do you need any medication refills at this time, including any of the medications you might take only when needed? No Social We would like to make sure you have what you need so that your basic needs are met- including your personal safety, food, housing, transportation and medications? Would you like to speak with a social work steam heating installer to help give you support for any of these needs? No It can be normal to feel anxious or down during a time like this. Would you like to talk to a mental health professional about how you have been feeling? No Closing Thank you for taking the time to talk with me today. We want to work with you to ensure that we are keeping your medical condition(s) well-controlled and to keep you healthy and out of the doctor's office or hospital. It?s also not too late for me to sign you up for automated weekly questionnaires through [employer]. This is an easy way for us to stay connected each week. Are you interested? No, I understand. We can always sign you up in the future if you change your mind. Just as a reminder, will continue to call you every other week to check in on your health. Our calls should take 10-15 minutes or less. Remember, if you have concerns in between our calls, please call your PCP's office right away. Thank you. Enter next patient outreach date for two weeks on the same day of the week as today in the Track Pt Outreach and End outreach. [facility] 07-17-2022 History of Presen t illness Narrative INSIGHT [facility] TELEPHONIC OUTREACH Provider Action/FYI: Patient would like [facility] telephonic management Has Healthy at Home resource information Reports doing very well, help if needed from family Requesting every 6 week follow up Contact made with patient: Yes Patient identified by name and . Discussed care with patient It s nice talking to you again. As a reminder, this is our bi-weekly check-in where I will be asking you questions about your health. This will only take a few minutes of your time. Is this a good time? Yes Symptoms What Chronic Disease(s) does the patient have: HTN Do you check your blood pressures at home? Yes, Enter readings: 130s/70s Do you have new or worse shortness of breath with activity? No Do you feel like you are dehydrated for any reason, including not being able to eat or drink normally, or having less urine/much darker urine than normal for you? No Do you check your daily weight at home? Yes, Have you noticed a sudden gain in weight greater than three pounds in a day or three pounds in a week? No Are you having any other symptoms that your PCP needs to know about? No Symptoms: Symptom Escalation JENA Education Ordered -: No The patient required an escalation for symptom(s)? No Medications Do you have any questions about taking your medication or which medications you should be on? No Do you need any medication refills at this time, including any of the medications you might take only when needed? No Social We would like to make sure you have what you need so that your basic needs are met- including your personal safety, food, housing, transportation and medications? Would you like to speak with a social work steam heating installer to help give you support for any of these needs? No It can be normal to feel anxious or down during a time like this. Would you like to talk to a mental health professional about how you have been feeling? No Closing Thank you for taking the time to talk with me today. We want to work with you to ensure that we are keeping your medical condition(s) well-controlled and to keep you healthy and out of the doctor's office or hospital. It s also not too late for me to sign you up for automated weekly questionnaires through [employer]. This is an easy way for us to stay connected each week. Are you interested? No, I understand. We can always sign you up in the future if you change your mind. Just as a reminder, will continue to call you every other week to check in on your health. Our calls should take 10-15 minutes or less. Remember, if you have concerns in between our calls, please call your PCP's office right away. Thank you. Enter next patient outreach date for two weeks on the same day of the week as today in the Track Pt Outreach and End outreach. documented in this encounter [facility] 06-04-2022 History of Presen t illness Narrative Radiology Service Progress Note PATIENT NAME: Dinah Nelson DATE OF SERVICE: June 04, 2022 TIME: 11:03 AM PATIENT IDENTITY VERIFICATION COMPLETED USING TWO (2) IDENTIFIERS: Name and Date of confirmed by patient verbally. FALL SCREENING: Has the patient had 2 falls in the last year or 1 fall with injury or currently using an Ambulatory Assistive Device (Walker, Cane, Wheelchair, Crutches, etc.)? No PATIENT GENDER DATA: Female. status: : No status: NO. PATIENT RELEVANT IMPLANT DATA REVIEWED: Not Applicable RADIOLOGY DEPARTMENT: Ultrasound PERIPHERAL IV DATA: Not applicable SIGNED BY: Stacy Whitfield RDMS RVT June 04, 2022 11:03 AM documented in this encounter [facility] 05-20-2022 Miscellaneous Notes Returned patients call with details regarding follow up and ultrasound. Dr Farooq's last note and recall letter state she should follow up with PCP for annual appt. and ultrasound. Pt stated she understood and would contact Dr Weir for an appointment. Appointment with Dr. Farooq will be cancelled for tomorrow.Rowan Souza RN Patient returned call. Please call patient back with information. Rachelle Sumner LPN Contacted patient and left VM to contact office concerning her appointment with our office tomorrow. Patient scheduled an appointment with Oseas following a recall letter, however her 1 year follow up should be scheduled with PCP for annual f/u and ultrasound according to Dr Tinoco last note and the recall letter. Rowan Souza RN documented in this encounter [facility] 05-16-2022 History of Presen t illness Narrative [facility] Enrollment Provider Action/FYI: H@H In addition to what I have discussed, I am providing you with a phone number that gives you one call access to nursing, appointments, and other valuable resources. I am also sending this information to your [employer]. Please take the time to write this number down . This number is available 7 days a week from 8am-8pm. Patient referred by: [facility] Harsha Contact made with patient: Yes - Patient identified by name and . Discussed care with patient Osiel this is Brina Kapoor RN and I am calling from Bennett Weir MD office at the [facility]. I am a RN [employer] with our [facility] Chronic Disease Management program. Bennett Weir MD wanted me to reach out to help you manage your health at home. Our goal is to keep you well at home. We want to help you manage your chronic disease by providing a safety net of resources around you, getting you the care you need in a timely manner, and hopefully keep you out of the ED and hospital. I will send you a few questions once a week through your [employer] account. It will automatically show up for you to complete. There are simple questions that will help us identify if you have any concerns or symptoms and I will call you to help get what you need. We will be able to connect you, review your symptoms, do an on demand visit, or communicate with Bennett Weir MD if needed. I am going to sign you up for the program now. Enrollment Questions: Let's get you enrolled in the program. Yes, Do you have regular access to a computer/smartphone? Yes. Goal Setting: I would like to take some time today to discuss your personal health goals. Patient does not have a goal. We will review during our next conversations to help support you. Most people know what to do to become healthier, yet struggle to put it into action on their own.It can be hard to maintain a healthy lifestyle, especially when life is so stressful. Can we connect you with a [facility] Health Biomedical Engineering Aide to find a program that could help you meet your goals? No Closing: Patient accepts home care manager Thank you for your time today. I am excited to work together in managing your health! You will receive information on next steps through your [employer] account, and I will check back within a few weeks to ensure you have all that you need to use the program successfully. (Place name in care team and assign [employer] Performance Architect questionnaire) [facility] Enrollment Provider Action/FYI: H@H Patient referred by: [facility] Harsha Contact made with patient: No - Left Message: Hi my name is Brina Kapoor RN and I am calling from the [facility] on behalf of your PCP, Bennett Weir MD. We are excited to share with you a new program to help you manage your health. Please call me back at between the hours of 8am-5pm Thursday-Thursday. You will receive another phone call from me within the next two business days. I hope you can take the time to speak with me. (Keep encounter open and attempt 2nd outreach in two business days from today) END OUTREACH documented in this encounter [facility] 05-07-2022 History of Presen t illness Narrative This note was created using [employer]. Subjective Dinah Nelson was here with her daughter. She started 10 days ago with low back aches, shoulder aches, neck aches, sneezing, sinus pressure, sneezing, bad taste, hearing loss and ear pain, cough, nausea and weakness. She was taking Tylenol with temporary relief. Per message she did not test for Covid, but did not feel feverish. There was viral illness going around with family members, but no one tested positive for Covid. 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 Questionable- thinks may have had upset stomach due to Flagyl Cipro [Ciprofloxaci* unsteady, near syncope Ivp Dye [Iodine] Hives, Swelling, Shortness of Breath Keflex [Cephalexin] Rash Generalized red rash; also had some feeling of throat swelling but denied dyspnea or wheezing; Note IV tx Cefotaxime (3rd gen) without rash Penicillins Shortness of Breath Current Outpatient Medications Medication Sig fexofenadine (NORY) 60 mg tablet Take 60 mg by mouth twice daily as needed. aspirin, enteric coated (ASPIR-LOW) 81 mg EC tablet Take 1 tablet by mouth every other day. azithromycin (ZITHROMAX Z-TUNDE) 250 mg tablet Take 2 tablets day one, then, 1 tablet daily until gone. No current facility-administered medications for this visit. Objective BP 134/73 (BP Site: Left Arm, BP Position: Supine, BP Cuff Size: Large Adult) Pulse 102 Temp 36.1 C (97 F) Wt 72.1 kg (159 lb) SpO2 97% BMI 28.85 kg/m Physical Exam Constitutional: General: She is not in acute distress. Appearance: She is not diaphoretic. HENT: Right Ear: Tympanic membrane normal. Left Ear: Tympanic membrane normal. Ears: Comments: Moderate cerumen R>L Nose: Right Turbinates: Swollen. Left Turbinates: Swollen. Right Sinus: Frontal sinus tenderness present. Left Sinus: Frontal sinus tenderness present. Comments: Thick yellowish mucous. Mouth/Throat: Pharynx: No pharyngeal swelling, oropharyngeal exudate or posterior oropharyngeal erythema. Cardiovascular: Rate and Rhythm: Regular rhythm. Tachycardia present. Heart sounds: No murmur heard. No gallop. Pulmonary: Effort: No respiratory distress. Breath sounds: No wheezing or rales. Musculoskeletal: Cervical back: Neck supple. Lymphadenopathy: Cervical: No cervical adenopathy. Neurological: Mental Status: She is alert. Assessment and Plan 1. Flu-like symptoms - ICD9: 780.99, ICD10: R68.89 (primary diagnosis) We agreed to test, even if management will not change. - COVID WITH FLUA+B, ROUTINE 2. Acute upper respiratory infection, unspecified - ICD9: 465.9, ICD10: J06.9 - Symptomatic treatment with prn analgesia - Supportive care with fluids and rest - Treat sinus infection. - COVID WITH FLUA+B, ROUTINE - AZITHROMYCIN 250 MG TABLET 3. Polymyalgia rheumatica (HCC) - ICD9: 725, ICD10: M35.3 Continue off prednisone for now. Bennett Weir MD documented in this encounter [facility] 04-03-2022 History of Presen t illness Narrative This office note has been dictated. Kirsten Leon DO documented in this encounter [facility] 03-26-2022 Miscellaneous Notes Patient need updated order for PVR other . She is scheduled for OV 04/03/22 Thank you documented in this encounter [facility] 02-18-2022 History of Presen t illness Narrative CC: Patient presents with: Follow Up HPI Dinah Nelson is a 81 year old female who presents today for follow-up. Patient unsure what today's visit is for however she reports ER visit on 02/12 for palpitations. She has had these for years but occurring only a few times a year. For the past few weeks she has been experiencing them daily. Described as fluttering and jumping. Lasting typically between 1 to 1.5 hours. Triggered by laying back in recliner. Resolve spontaneously. Denies chest pain, SOB, dizziness, lightheadedness, feeling faint, syncope. Adequate hydration, no caffeine. No increase in stress and not feeling anxious. No recent illnesses. No new medications. Reviewed [facility] ER visit. EKG normal sinus rhythm. Chest x-ray negative. CBC, BMP, Troponin and TSH normal. REVIEW OF SYSTEMS General: no fevers, no chills, no night sweats, no change in energy, and no significant changes in weight See HPI PAST MEDICAL HISTORY Diagnosis Date Aortic valve sclerosis 03/24/2016 Atherosclerosis of arteries 03/24/2016 Benign meningioma of brain (HCC) 11/08/2019 Benign neoplasm of colon Benign neoplasm of stomach Cataract Both eyes Diverticulitis Diverticulosis 04/15/2011 Dysplasia of cervix 1988 Esophageal reflux Lipoma of skin and subcutaneous tissue of neck 11/08/2019 right posterior neck Mixed hyperlipidemia 03/24/2016 Polymyalgia rheumatica (HCC) 09/16/2021 PVD (peripheral vascular disease) with claudication (HCC) 07/27/2020 Thyroid nodule 11/08/2019 Unspecified hypothyroidism PAST SURGICAL HISTORY Procedure Laterality Date APPENDECTOMY BIOPSY CERVIX SINGLE/MULT/EXCISION OF LESION SPX CATARACT SURGERY, COMPLEX 2010 CHOLECYSTECTOMY Cholecystectomy COLONOSCOPY FLX DX W/COLLJ SPEC WHEN PFRMD 06/03/05 Colonoscopy with bx COLONOSCOPY FLX DX W/COLLJ SPEC WHEN PFRMD 06/03/05 Colonoscopy with polypectomy COLONOSCOPY FLX DX W/COLLJ SPEC WHEN PFRMD 08/13/2009 Colonoscopy-repeat in 3 years (-2012) COLSC FLX W/RMVL OF TUMOR POLYP LESION SNARE TQ 11/07/14 hyperplastic polyp - 5 year follow up - h/o polyps ESOPHAGOGASTRODUODENOSCOPY TRANSORAL DIAGNOSTIC 05/30/05 EGD LAPAROSCOPIC HEMICOLECTOMY Right 2006 LEEP PROCEDURE (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ACHINE [employer]PERATOR DEPT)_*FL 1988 ALLERGIES Lovastatin, Akexrtc-Gkp-Esm Reductase Inhibitors, Crestor [Rosuvastatin Calcium], Lipitor [Atorvastatin Calcium], Bactrim [Sulfamethoxazole], Cipro [Ciprofloxacin], Ivp Dye [Iodine], Keflex [Cephalexin], and Penicillins MEDICATIONS predniSONE (DELTASONE) 2.5 mg tablet Take 1 tablet by mouth once daily. fexofenadine (NORY) 60 mg tablet Take 60 mg by mouth twice daily as needed. aspirin, enteric coated (ASPIR-LOW) 81 mg EC tablet Take 1 tablet by mouth every other day. FAMILY HISTORY Problem Relation Age of Onset Heart Mother Stroke Mother Heart Father heart attack Social History Tobacco Use Smoking status: Never Smokeless tobacco: Never Vaping Use Vaping Use: Never used Substance Use Topics Alcohol use: No Drug use: No PHYSICAL EXAM BP 130/62 Pulse 99 Wt 73.5 kg (162 lb) SpO2 99% BMI 29.39 kg/m General Appearance: well appearing, in no acute distress, alert Lungs: Lungs clear to auscultation. No wheezing, rhonchi, rales. Heart: RRR without murmur, gallop, or rubs. No ectopy Ext: no edema in LE bilaterally, good distal pulses ASSESSMENT/PLAN: 1. Palpitations - ICD9: 785.1, ICD10: R00.2 No alarm symptoms or exam findings. Work-up in ER unremarkable. Exam today benign. Evaluate further with 14 day ZIO monitor - OUTSIDE VENDOR CARDIAC OUTPATIENT EXTENDED RHYTHM RECORDING (WITHOUT TELEMETRY) Follow-up pending results Prescription instructions reviewed with patient as applicable. Potential red flag symptoms discussed with the patient. Reviewed appropriate action plan to take if red flag symptoms occur. Patient agreeable to treatment plan. Tamiko Quinn APRN.CNP documented in this encounter [facility] 01-20-2022 History of Presen t illness Narrative This note was created using [employer]. Subjective Dinah Nelson is a 81 year old female. She was on prednisone since August for PMR. We reduced dose in stages and she was now down to 1 mg of prednisone daily. Her myalgias and arthralgias were again symptomatic. Her right shoulder was clicking. She also had developed swelling and pain of her wrists. Review of Systems Cardiovascular: Negative for chest pain and palpitations. Gastrointestinal: Negative for anal bleeding, nausea and vomiting. Musculoskeletal: Positive for arthralgias and joint swelling. ACTIVE PROBLEM LIST Benign Neoplasm of Colon Mixed Hyperlipidemia Atherosclerosis of Arteries Aortic Valve Sclerosis Chronic Urticaria Obesity, Class I, Bmi 30-34.9 Multiple Thyroid Nodules Essential Hypertension Pvd (Peripheral Vascular Disease) With Claudication (Hcc) Raynaud's Phenomenon Without Gangrene Anxiety About Health Polymyalgia Rheumatica (Hcc) Current Outpatient Medications Medication Sig predniSONE (DELTASONE) 1 mg tablet Take 1 tablet by mouth once daily. fexofenadine (NORY) 60 mg tablet Take 60 mg by mouth twice daily as needed. aspirin, enteric coated (ASPIR-LOW) 81 mg EC tablet Take 1 tablet by mouth every other day. No current facility-administered medications for this visit. Objective BP 126/76 (BP Site: Left Arm, BP Position: Sitting, BP Cuff Size: Large Adult) Pulse 100 Temp 36.6 C (97.8 F) (Temporal) Resp 18 Wt 73 kg (161 lb) BMI 29.21 kg/m Physical Exam Constitutional: General: She is not in acute distress. Cardiovascular: Rate and Rhythm: Normal rate and regular rhythm. Heart sounds: Murmur heard. Systolic murmur is present with a grade of 1/6. Musculoskeletal: Right elbow: Normal. Left elbow: Normal. Right wrist: Swelling present. No tenderness. Left wrist: Swelling and deformity present. No tenderness or crepitus. Decreased range of motion. Right hand: Normal. Left hand: Normal. Right lower leg: No edema. Left lower leg: No edema. Neurological: Mental Status: She is alert. Assessment and Plan 1. Synovitis of wrist - ICD9: 727.05, ICD10: M65.9 (primary diagnosis) - CONSULT TO RHEUM/IMMUN DISEASE 2. Polymyalgia rheumatica (HCC) - ICD9: 725, ICD10: M35.3 - PREDNISONE 2.5 MG TABLET - CONSULT TO RHEUM/IMMUN DISEASE 3. Essential hypertension - ICD9: 401.9, ICD10: I10 - good control - Continue current medication(s) - Goal of BP <130/80 Bennett Weir MD documented in this encounter [facility] documented as of this encounter (statuses as of 08/28/2022) [facility] History of Past illness Narrative* Problem Noted Date Resolved Date Synovitis of wrist 01/20/2022 07/23/2022 Polymyalgia rheumatica 09/16/2021 Atherosclerosis of arteries 03/24/201606/26 Hematuria 01/16/2014 02/22/2015 PMB (postmenopausal bleeding) 06/20/2011 KOLTON favor benign 06/20/2011 03/24/2016 Diverticulosis 04/15/2011 03/24/2016 Last Assessment & Plan: Denies any abd pain, fevers. Denies any constipation or diarrhea. Diverticulitis 11/13/2009 04/15/2011 Overview: [facility] admission 11/02/09-11/05/09. 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 Last TSH level completed in May of 2010, in therapeutic range. HYPERLIPIDEMIA NEC/NOS 5 Last Assessment & Plan: Hyperlipidemia. Ms. Nelson reports doing well on current therapy of rosuvastatin (Crestor) 5mg. She did finally start taking this medication for lipids at the beginning of March. Denies side effects of muscle weakness or achiness other than normal aches. Her most recent lipid panels are reviewed from December 2010 and showing uncontrolled levels of TC, LDLs. LDL Chol, [place] (mg/dL) Date Value 01/02/2011 190* Esophageal reflux 03/24/2016 Last Assessment & Plan: Notes generally well controlled with dietary monitoring. Denies any indigestion or heartburn. Occasional dysphagia- generally with liquids- intermittent. documented as of this encounter (statuses as of 09/16/2022) [facility] History of Past illness Narrative* Problem Noted Date Resolved Date Synovitis of wrist 01/20/2022 07/23/2022 Polymyalgia rheumatica 09/16/2021 Atherosclerosis of arteries 03/24/201606/26 Hematuria 01/16/2014 02/22/2015 PMB (postmenopausal bleeding) 06/20/2011 KOLTON favor benign 06/20/2011 03/24/2016 Diverticulosis 04/15/2011 03/24/2016 Last Assessment & Plan: Denies any abd pain, fevers. Denies any constipation or diarrhea. Diverticulitis 11/13/2009 04/15/2011 Overview: [facility] admission 11/02/09-11/05/09. 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 Last TSH level completed in May of 2010, in therapeutic range. HYPERLIPIDEMIA NEC/NOS Last Assessment & Plan: Hyperlipidemia. Ms. Nelson reports doing well on current therapy of rosuvastatin (Crestor) 5mg. She did finally start taking this medication for lipids at the beginning of March. Denies side effects of muscle weakness or achiness other than normal aches. Her most recent lipid panels are reviewed from December 2010 and showing uncontrolled levels of TC, LDLs. LDL Chol, [place] (mg/dL) Date Value 01/02/2011 190* Esophageal reflux 03/24/2016 Last Assessment & Plan: Notes generally well controlled with dietary monitoring. Denies any indigestion or heartburn. Occasional dysphagia- generally with liquids- intermittent. documented as of this encounter (statuses as of 09/23/2022) [facility] History of Past illness Narrative* Problem Noted Date Resolved Date Synovitis of wrist 01/20/2022 07/23/2022 Polymyalgia rheumatica 09/16/2021 Atherosclerosis of arteries 03/24/2016/12/2022 Hematuria 01/16/2014 02/22/2015 PMB (postmenopausal bleeding) 06/20/2011 KOLTON favor benign 06/20/2011 03/24/2016 Diverticulosis 04/15/2011 03/24/2016 Last Assessment & Plan: Denies any abd pain, fevers. Denies any constipation or diarrhea. Diverticulitis 11/13/2009 04/15/2011 Overview: [facility] admission 11/02/09-11/05/09. 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 Last TSH level completed in May of 2010, in therapeutic range. HYPERLIPIDEMIA NEC/NOS 5 Last Assessment & Plan: Hyperlipidemia. Ms. Nelson reports doing well on current therapy of rosuvastatin (Crestor) 5mg. She did finally start taking this medication for lipids at the beginning of March. Denies side effects of muscle weakness or achiness other than normal aches. Her most recent lipid panels are reviewed from December 2010 and showing uncontrolled levels of TC, LDLs. LDL Chol, [place] (mg/dL) Date Value 01/02/2011 190* Esophageal reflux 03/24/2016 Last Assessment & Plan: Notes generally well controlled with dietary monitoring. Denies any indigestion or heartburn. Occasional dysphagia- generally with liquids- intermittent. documented as of this encounter (statuses as of 11/18/2022) [facility] History of Past illness Narrative* Problem Noted Date Resolved Date Synovitis of wrist 01/20/2022 07/23/2022 Polymyalgia rheumatica 09/16/2021 Atherosclerosis of arteries 03/24/2016/12/2022 Hematuria 01/16/2014 02/22/2015 PMB (postmenopausal bleeding) 06/20/2011 KOLTON favor benign 06/20/2011 03/24/2016 Diverticulosis 04/15/2011 03/24/2016 Last Assessment & Plan: Denies any abd pain, fevers. Denies any constipation or diarrhea. Diverticulitis 11/13/2009 04/15/2011 Overview: [facility] admission 11/02/09-11/05/09. 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 Last TSH level completed in May of 2010, in therapeutic range. HYPERLIPIDEMIA NEC/NOS 5 Last Assessment & Plan: Hyperlipidemia. Ms. Nelson reports doing well on current therapy of rosuvastatin (Crestor) 5mg. She did finally start taking this medication for lipids at the beginning of March. Denies side effects of muscle weakness or achiness other than normal aches. Her most recent lipid panels are reviewed from December 2010 and showing uncontrolled levels of TC, LDLs. LDL Chol, [place]il[place] (mg/dL) Date Value 01/02/2011 190* Esophageal reflux 03/24/2016 Last Assessment & Plan: Notes generally well controlled with dietary monitoring. Denies any indigestion or heartburn. Occasional dysphagia- generally with liquids- intermittent. documented as of this encounter (statuses as of 11/21/2022) [facility] History of Past illness Narrative* Problem Noted Date Diagnosed Date Resolved Date Synovitis of wrist 01/20/2022 Polymyalgia rheumatica 09/16/202107/23 Atherosclerosis of arteries 03/24/2016 07/22/2022 Hematuria 01/16/2014 02/22/2015 PMB (postmenopausal bleeding) 06/20/2011 03/24/2016 KOLTON favor benign 06/20/2011 03/24/2016 Diverticulosis 04/15/2011 03/24/2016 Last Assessment & Plan: Denies any abd pain, fevers. Denies any constipation or diarrhea. Diverticulitis 11/13/2009 04/15/2011 Overview: [facility] admission 11/02/09-11/05/09. 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 Last TSH level completed in May of 2010, in therapeutic range. HYPERLIPIDEMIA NEC/NOS 02/22 Last Assessment & Plan: Hyperlipidemia. Ms. Nelson reports doing well on current therapy of rosuvastatin (Crestor) 5mg. She did finally start taking this medication for lipids at the beginning of March. Denies side effects of muscle weakness or achiness other than normal aches. Her most recent lipid panels are reviewed from December 2010 and showing uncontrolled levels of TC, LDLs. LDL Chol, Jamil[place] (mg/dL) Date Value 01/02/2011 190* Esophageal reflux 03/24/2016 Last Assessment & Plan: Notes generally well controlled with dietary monitoring. Denies any indigestion or heartburn. Occasional dysphagia- generally with liquids- intermittent. documented as of this encounter (statuses as of 12/15/2022) [facility] History of Past illness Narrative* Problem Noted Date Diagnosed Date Resolved Date Synovitis of wrist 01/20/2022 Polymyalgia rheumatica 09/16/202107/23 Atherosclerosis of arteries 03/24/2016 07/22/2022 Hematuria 01/16/2014 02/22/2015 PMB (postmenopausal bleeding) 06/20/2011 03/24/2016 KOLTON favor benign 06/20/2011 03/24/2016 Diverticulosis 04/15/2011 03/24/2016 Last Assessment & Plan: Denies any abd pain, fevers. Denies any constipation or diarrhea. Diverticulitis 11/13/2009 04/15/2011 Overview: [facility] admission 11/02/09-11/05/09. 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 Last TSH level completed in May of 2010, in therapeutic range. HYPERLIPIDEMIA NEC/NOS 02/22 Last Assessment & Plan: Hyperlipidemia. Ms. Nelson reports doing well on current therapy of rosuvastatin (Crestor) 5mg. She did finally start taking this medication for lipids at the beginning of March. Denies side effects of muscle weakness or achiness other than normal aches. Her most recent lipid panels are reviewed from December 2010 and showing uncontrolled levels of TC, LDLs. LDL Chol, Jamilah (mg/dL) Date Value 01/02/2011 190* Esophageal reflux 03/24/2016 Last Assessment & Plan: Notes generally well controlled with dietary monitoring. Denies any indigestion or heartburn. Occasional dysphagia- generally with liquids- intermittent. documented as of this encounter (statuses as of 12/23/2022) [facility]08-29-2022 History of Past illness Narrative* Problem Noted Date Diagnosed Date Resolved Date Synovitis of wrist 01/20/2022 Polymyalgia rheumatica 09/16/202107/23 Atherosclerosis of arteries 03/24/2016 07/22/2022 Hematuria 01/16/2014 02/22/2015 PMB (postmenopausal bleeding) 06/20/2011 03/24/2016 KOLTON favor benign 06/20/2011 03/24/2016 Diverticulosis 04/15/2011 03/24/2016 Last Assessment & Plan: Denies any abd pain, fevers. Denies any constipation or diarrhea. Diverticulitis 11/13/2009 04/15/2011 Overview: [facility] admission 11/02/09-11/05/09. 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 Last TSH level completed in May of 2010, in therapeutic range. HYPERLIPIDEMIA NEC/NOS 02/22 Last Assessment & Plan: Hyperlipidemia. Ms. Nelson reports doing well on current therapy of rosuvastatin (Crestor) 5mg. She did finally start taking this medication for lipids at the beginning of March. Denies side effects of muscle weakness or achiness other than normal aches. Her most recent lipid panels are reviewed from December 2010 and showing uncontrolled levels of TC, LDLs. LDL Chol, Jamilah (mg/dL) Date Value 01/02/2011 190* Esophageal reflux 03/24/2016 Last Assessment & Plan: Notes generally well controlled with dietary monitoring. Denies any indigestion or heartburn. Occasional dysphagia- generally with liquids- intermittent. documented as of this encounter (statuses as of 12/31/2022) [facility]08-[facility]2022 History of Past illness Narrative* Problem Noted Date Diagnosed Date Resolved Date Synovitis of wrist 01/20/2022 Polymyalgia rheumatica 09/16/202107/23 Atherosclerosis of arteries 03/24/2016 07/22/2022 Hematuria 01/16/2014 02/22/2015 PMB (postmenopausal bleeding) 06/20/2011 03/24/2016 KOLTON favor benign 06/20/2011 03/24/2016 Diverticulosis 04/15/2011 03/24/2016 Last Assessment & Plan: Denies any abd pain, fevers. Denies any constipation or diarrhea. Diverticulitis 11/13/2009 04/15/2011 Overview: [facility] admission 11/02/09-11/05/09. 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 Last TSH level completed in May of 2010, in therapeutic range. HYPERLIPIDEMIA NEC/NOS 02/22 Last Assessment & Plan: Hyperlipidemia. Ms. Nelson reports doing well on current therapy of rosuvastatin (Crestor) 5mg. She did finally start taking this medication for lipids at the beginning of March. Denies side effects of muscle weakness or achiness other than normal aches. Her most recent lipid panels are reviewed from December 2010 and showing uncontrolled levels of TC, LDLs. LDL Chol, Moulton (mg/dL) Date Value 01/02/2011 190* Esophageal reflux 03/24/2016 Last Assessment & Plan: Notes generally well controlled with dietary monitoring. Denies any indigestion or heartburn. Occasional dysphagia- generally with liquids- intermittent. documented as of this encounter (statuses as of 01/05/2023) [facility]08[facility]2022 History of Past illness Narrative* Problem Noted Date Diagnosed Date Resolved Date Synovitis of wrist 01/20/2022 Polymyalgia rheumatica 09/16/202107/23 Atherosclerosis of arteries 03/24/2016 07/22/2022 Hematuria 01/16/2014 02/22/2015 PMB (postmenopausal bleeding) 06/20/2011 03/24/2016 KOLTON favor benign 06/20/2011 03/24/2016 Diverticulosis 04/15/2011 03/24/2016 Last Assessment & Plan: Denies any abd pain, fevers. Denies any constipation or diarrhea. Diverticulitis 11/13/2009 04/15/2011 Overview: [facility] admission 11/02/09-11/05/09. 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 Last TSH level completed in May of 2010, in therapeutic range. HYPERLIPIDEMIA NEC/NOS 02/22 Last Assessment & Plan: Hyperlipidemia. Ms. Nelson reports doing well on current therapy of rosuvastatin (Crestor) 5mg. She did finally start taking this medication for lipids at the beginning of March. Denies side effects of muscle weakness or achiness other than normal aches. Her most recent lipid panels are reviewed from December 2010 and showing uncontrolled levels of TC, LDLs. LDL Chol, Jamilah (mg/dL) Date Value 01/02/2011 190* Esophageal reflux 03/24/2016 Last Assessment & Plan: Notes generally well controlled with dietary monitoring. Denies any indigestion or heartburn. Occasional dysphagia- generally with liquids- intermittent. documented as of this encounter (statuses as of 01/06/2023) [facility]08[facility]2022 History of Past illness Narrative* Problem Noted Date Diagnosed Date Resolved Date Synovitis of wrist 01/20/2022 Polymyalgia rheumatica 09/16/202107/23 Atherosclerosis of arteries 03/24/2016 07/22/2022 Hematuria 01/16/2014 02/22/2015 PMB (postmenopausal bleeding) 06/20/2011 03/24/2016 KOLTON favor benign 06/20/2011 03/24/2016 Diverticulosis 04/15/2011 03/24/2016 Last Assessment & Plan: Denies any abd pain, fevers. Denies any constipation or diarrhea. Diverticulitis 11/13/2009 04/15/2011 Overview: [facility] admission 11/02/09-11/05/09. 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 Last TSH level completed in May of 2010, in therapeutic range. HYPERLIPIDEMIA NEC/NOS 02/22 Last Assessment & Plan: Hyperlipidemia. Ms. Nelson reports doing well on current therapy of rosuvastatin (Crestor) 5mg. She did finally start taking this medication for lipids at the beginning of March. Denies side effects of muscle weakness or achiness other than normal aches. Her most recent lipid panels are reviewed from December 2010 and showing uncontrolled levels of TC, LDLs. LDL Chol, Moul[place] (mg/dL) Date Value 01/02/2011 190* Esophageal reflux 03/24/2016 Last Assessment & Plan: Notes generally well controlled with dietary monitoring. Denies any indigestion or heartburn. Occasional dysphagia- generally with liquids- intermittent. documented as of this encounter (statuses as of 01/20/2023) [facility]08[facility]2022 History of Past illness Narrative* Problem Noted Date Diagnosed Date Resolved Date Synovitis of wrist 01/20/2022 Polymyalgia rheumatica 09/16/202107/23 Atherosclerosis of arteries 03/24/2016 07/22/2022 Hematuria 01/16/2014 02/22/2015 PMB (postmenopausal bleeding) 06/20/2011 03/24/2016 KOLTON favor benign 06/20/2011 03/24/2016 Diverticulosis 04/15/2011 03/24/2016 Last Assessment & Plan: Denies any abd pain, fevers. Denies any constipation or diarrhea. Diverticulitis 11/13/2009 04/15/2011 Overview: [facility] admission 11/02/09-11/05/09. 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 Last TSH level completed in May of 2010, in therapeutic range. HYPERLIPIDEMIA NEC/NOS 02/22 Last Assessment & Plan: Hyperlipidemia. Ms. Nelson reports doing well on current therapy of rosuvastatin (Crestor) 5mg. She did finally start taking this medication for lipids at the beginning of March. Denies side effects of muscle weakness or achiness other than normal aches. Her most recent lipid panels are reviewed from December 2010 and showing uncontrolled levels of TC, LDLs. LDL Chol, Moul[place] (mg/dL) Date Value 01/02/2011 190* Esophageal reflux 03/24/2016 Last Assessment & Plan: Notes generally well controlled with dietary monitoring. Denies any indigestion or heartburn. Occasional dysphagia- generally with liquids- intermittent. documented as of this encounter (statuses as of 01/21/2023) [facility]08[facility]2022 History of Past illness Narrative* Problem Noted Date Diagnosed Date Resolved Date Synovitis of wrist 01/20/2022 Polymyalgia rheumatica 09/16/202107/23 Atherosclerosis of arteries 03/24/2016 07/22/2022 Hematuria 01/16/2014 02/22/2015 PMB (postmenopausal bleeding) 06/20/2011 03/24/2016 KOLTON favor benign 06/20/2011 03/24/2016 Diverticulosis 04/15/2011 03/24/2016 Last Assessment & Plan: Denies any abd pain, fevers. Denies any constipation or diarrhea. Diverticulitis 11/13/2009 04/15/2011 Overview: [facility] admission 11/02/09-11/05/09. 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 Last TSH level completed in May of 2010, in therapeutic range. HYPERLIPIDEMIA NEC/NOS 02/22 Last Assessment & Plan: Hyperlipidemia. Ms. Nelson reports doing well on current therapy of rosuvastatin (Crestor) 5mg. She did finally start taking this medication for lipids at the beginning of March. Denies side effects of muscle weakness or achiness other than normal aches. Her most recent lipid panels are reviewed from December 2010 and showing uncontrolled levels of TC, LDLs. LDL Chol, Moulton (mg/dL) Date Value 01/02/2011 190* Esophageal reflux 03/24/2016 Last Assessment & Plan: Notes generally well controlled with dietary monitoring. Denies any indigestion or heartburn. Occasional dysphagia- generally with liquids- intermittent. documented as of this encounter (statuses as of 03/16/2023) [facility]08[facility]2022 History of Past illness Narrative* Problem Noted Date Diagnosed Date Resolved Date Synovitis of wrist 01/20/2022 Polymyalgia rheumatica 09/16/202107/23 Atherosclerosis of arteries 03/24/2016 07/22/2022 Hematuria 01/16/2014 02/22/2015 PMB (postmenopausal bleeding) 06/20/2011 03/24/2016 KOLTON favor benign 06/20/2011 03/24/2016 Diverticulosis 04/15/2011 03/24/2016 Last Assessment & Plan: Denies any abd pain, fevers. Denies any constipation or diarrhea. Diverticulitis 11/13/2009 04/15/2011 Overview: [facility] admission 11/02/09-11/05/09. 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 Last TSH level completed in May of 2010, in therapeutic range. HYPERLIPIDEMIA NEC/NOS 02/22 Last Assessment & Plan: Hyperlipidemia. Ms. Nelson reports doing well on current therapy of rosuvastatin (Crestor) 5mg. She did finally start taking this medication for lipids at the beginning of March. Denies side effects of muscle weakness or achiness other than normal aches. Her most recent lipid panels are reviewed from December 2010 and showing uncontrolled levels of TC, LDLs. LDL Chol, Jamilah (mg/dL) Date Value 01/02/2011 190* Esophageal reflux 03/24/2016 Last Assessment & Plan: Notes generally well controlled with dietary monitoring. Denies any indigestion or heartburn. Occasional dysphagia- generally with liquids- intermittent. documented as of this encounter (statuses as of 03/29/2023) [facility]20[facility] History of Past illness Narrative* Problem Noted Date Diagnosed Date Resolved Date Synovitis of wrist 01/20/2022 Polymyalgia rheumatica 09/16/202107/23 Atherosclerosis of arteries 03/24/2016 07/22/2022 Hematuria 01/16/2014 02/22/2015 PMB (postmenopausal bleeding) 06/20/2011 03/24/2016 KOLTON favor benign 06/20/2011 03/24/2016 Diverticulosis 04/15/2011 03/24/2016 Last Assessment & Plan: Denies any abd pain, fevers. Denies any constipation or diarrhea. Diverticulitis 11/13/2009 04/15/2011 Overview: [facility] admission 11/02/09-11/05/09. 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 Last TSH level completed in May of 2010, in therapeutic range. HYPERLIPIDEMIA NEC/NOS 02/22 Last Assessment & Plan: Hyperlipidemia. Ms. Nelson reports doing well on current therapy of rosuvastatin (Crestor) 5mg. She did finally start taking this medication for lipids at the beginning of March. Denies side effects of muscle weakness or achiness other than normal aches. Her most recent lipid panels are reviewed from December 2010 and showing uncontrolled levels of TC, LDLs. LDL Chol, Moulton (mg/dL) Date Value 01/02/2011 190* Esophageal reflux 03/24/2016 Last Assessment & Plan: Notes generally well controlled with dietary monitoring. Denies any indigestion or heartburn. Occasional dysphagia- generally with liquids- intermittent. documented as of this encounter (statuses as of 03/29/2023) [facility]08[facility]20[facility] History of Past illness Narrative* Problem Noted Date Diagnosed Date Resolved Date Synovitis of wrist 01/20/2022 Polymyalgia rheumatica 09/16/202107/23 Atherosclerosis of arteries 03/24/2016 07/22/2022 Hematuria 01/16/2014 02/22/2015 PMB (postmenopausal bleeding) 06/20/2011 03/24/2016 KOLTON favor benign 06/20/2011 03/24/2016 Diverticulosis 04/15/2011 03/24/2016 Last Assessment & Plan: Denies any abd pain, fevers. Denies any constipation or diarrhea. Diverticulitis 11/13/2009 04/15/2011 Overview: [facility] admission 11/02/09-11/05/09. 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 Last TSH level completed in May of 2010, in therapeutic range. HYPERLIPIDEMIA NEC/NOS 02/22 Last Assessment & Plan: Hyperlipidemia. Ms. Nelson reports doing well on current therapy of rosuvastatin (Crestor) 5mg. She did finally start taking this medication for lipids at the beginning of March. Denies side effects of muscle weakness or achiness other than normal aches. Her most recent lipid panels are reviewed from December 2010 and showing uncontrolled levels of TC, LDLs. LDL Chol, Jamilah (mg/dL) Date Value 01/02/2011 190* Esophageal reflux 03/24/2016 Last Assessment & Plan: Notes generally well controlled with dietary monitoring. Denies any indigestion or heartburn. Occasional dysphagia- generally with liquids- intermittent. documented as of this encounter (statuses as of 03/29/2023) [facility] History of Past illness Narrative* Problem Noted Date Diagnosed Date Resolved Date Synovitis of wrist 01/20/2022 Polymyalgia rheumatica 09/16/202107/23 Atherosclerosis of arteries 03/24/2016 07/22/2022 Hematuria 01/16/2014 02/22/2015 PMB (postmenopausal bleeding) 06/20/2011 03/24/2016 KOLTON favor benign 06/20/2011 03/24/2016 Diverticulosis 04/15/2011 03/24/2016 Last Assessment & Plan: Denies any abd pain, fevers. Denies any constipation or diarrhea. Diverticulitis 11/13/2009 04/15/2011 Overview: [facility] admission 11/02/09-11/05/09. 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 Last TSH level completed in May of 2010, in therapeutic range. HYPERLIPIDEMIA NEC/NOS 02/22 Last Assessment & Plan: Hyperlipidemia. Ms. Nelson reports doing well on current therapy of rosuvastatin (Crestor) 5mg. She did finally start taking this medication for lipids at the beginning of March. Denies side effects of muscle weakness or achiness other than normal aches. Her most recent lipid panels are reviewed from December 2010 and showing uncontrolled levels of TC, LDLs. LDL Chol, Jamilah (mg/dL) Date Value 01/02/2011 190* Esophageal reflux 03/24/2016 Last Assessment & Plan: Notes generally well controlled with dietary monitoring. Denies any indigestion or heartburn. Occasional dysphagia- generally with liquids- intermittent. documented as of this encounter (statuses as of 04/14/2023) [facility] History of Past illness Narrative* Problem Noted Date Diagnosed Date Resolved Date Synovitis of wrist 01/20/2022 3 Polymyalgia rheumatica 09/16/202107/23 Atherosclerosis of arteries 03/24/2016 07/22/2022 Hematuria 01/16/2014 02/22/2015 PMB (postmenopausal bleeding) 06/20/2011 03/24/2016 KOLTON favor benign 06/20/2011 03/24/2016 Diverticulosis 04/15/2011 03/24/2016 Last Assessment & Plan: Denies any abd pain, fevers. Denies any constipation or diarrhea. Diverticulitis 11/13/2009 04/15/2011 Overview: [facility] admission 11/02/09-11/05/09. 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 Last TSH level completed in May of 2010, in therapeutic range. HYPERLIPIDEMIA NEC/NOS 02/22 Last Assessment & Plan: Hyperlipidemia. Ms. Nelson reports doing well on current therapy of rosuvastatin (Crestor) 5mg. She did finally start taking this medication for lipids at the beginning of March. Denies side effects of muscle weakness or achiness other than normal aches. Her most recent lipid panels are reviewed from December 2010 and showing uncontrolled levels of TC, LDLs. LDL Chol, Jamilah (mg/dL) Date Value 01/02/2011 190* Esophageal reflux 03/24/2016 Last Assessment & Plan: Notes generally well controlled with dietary monitoring. Denies any indigestion or heartburn. Occasional dysphagia- generally with liquids- intermittent. documented as of this encounter (statuses as of 04/25/2023) [facility] History of Past illness Narrative* Problem Noted Date Diagnosed Date Resolved Date Synovitis of wrist 01/20/2022 Polymyalgia rheumatica 09/16/202107/23 Atherosclerosis of arteries 03/24/2016 07/22/2022 Hematuria 01/16/2014 02/22/2015 PMB (postmenopausal bleeding) 06/20/2011 03/24/2016 KOLTON favor benign 06/20/2011 03/24/2016 Diverticulosis 04/15/2011 03/24/2016 Last Assessment & Plan: Denies any abd pain, fevers. Denies any constipation or diarrhea. Diverticulitis 11/13/2009 04/15/2011 Overview: [facility] admission 11/02/09-11/05/09. 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 Last TSH level completed in May of 2010, in therapeutic range. HYPERLIPIDEMIA NEC/NOS 02/22 Last Assessment & Plan: Hyperlipidemia. Ms. Nelson reports doing well on current therapy of rosuvastatin (Crestor) 5mg. She did finally start taking this medication for lipids at the beginning of March. Denies side effects of muscle weakness or achiness other than normal aches. Her most recent lipid panels are reviewed from December 2010 and showing uncontrolled levels of TC, LDLs. LDL Chol, Moul[place] (mg/dL) Date Value 01/02/2011 190* Esophageal reflux 03/24/2016 Last Assessment & Plan: Notes generally well controlled with dietary monitoring. Denies any indigestion or heartburn. Occasional dysphagia- generally with liquids- intermittent. documented as of this encounter (statuses as of 05/01/2023) [facility] History of Past illness Narrative* Problem Noted Date Diagnosed Date Resolved Date Synovitis of wrist 01/20/2022 Polymyalgia rheumatica 09/16/202107/23 Atherosclerosis of arteries 03/24/2016 07/22/2022 Hematuria 01/16/2014 02/22/2015 PMB (postmenopausal bleeding) 06/20/2011 03/24/2016 KOLTON favor benign 06/20/2011 03/24/2016 Diverticulosis 04/15/2011 03/24/2016 Last Assessment & Plan: Denies any abd pain, fevers. Denies any constipation or diarrhea. Diverticulitis 11/13/2009 04/15/2011 Overview: [facility] admission 11/02/09-11/05/09. 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 Last TSH level completed in May of 2010, in therapeutic range. HYPERLIPIDEMIA NEC/NOS 02/22 Last Assessment & Plan: Hyperlipidemia. Ms. Nelson reports doing well on current therapy of rosuvastatin (Crestor) 5mg. She did finally start taking this medication for lipids at the beginning of March. Denies side effects of muscle weakness or achiness other than normal aches. Her most recent lipid panels are reviewed from December 2010 and showing uncontrolled levels of TC, LDLs. LDL Chol, Moul[place] (mg/dL) Date Value 01/02/2011 190* Esophageal reflux 03/24/2016 Last Assessment & Plan: Notes generally well controlled with dietary monitoring. Denies any indigestion or heartburn. Occasional dysphagia- generally with liquids- intermittent. documented as of this encounter (statuses as of 06/29/2023) [facility] History of Past illness Narrative* Problem Noted Date Diagnosed Date Resolved Date Synovitis of wrist 01/20/2022 Polymyalgia rheumatica 09/16/202107/23 Atherosclerosis of arteries 03/24/2016 07/22/2022 Hematuria 01/16/2014 02/22/2015 PMB (postmenopausal bleeding) 06/20/2011 03/24/2016 KOLTON favor benign 06/20/2011 03/24/2016 Diverticulosis 04/15/2011 03/24/2016 Last Assessment & Plan: Denies any abd pain, fevers. Denies any constipation or diarrhea. Diverticulitis 11/13/2009 04/15/2011 Overview: [facility] admission 11/02/09-11/05/09. 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 Last TSH level completed in May of 2010, in therapeutic range. HYPERLIPIDEMIA NEC/NOS 02/22 Last Assessment & Plan: Hyperlipidemia. Ms. Nelson reports doing well on current therapy of rosuvastatin (Crestor) 5mg. She did finally start taking this medication for lipids at the beginning of March. Denies side effects of muscle weakness or achiness other than normal aches. Her most recent lipid panels are reviewed from December 2010 and showing uncontrolled levels of TC, LDLs. LDL Chol, Moul[place] (mg/dL) Date Value 01/02/2011 190* Esophageal reflux 03/24/2016 Last Assessment & Plan: Notes generally well controlled with dietary monitoring. Denies any indigestion or heartburn. Occasional dysphagia- generally with liquids- intermittent. documented as of this encounter (statuses as of 07/10/2023) [facility]08-24-[facility]22 Miscellaneous Notes* Telephone Encounter - Makenzie Larson LPN - 01/15/2022 9:07 AM EDT Spoke to Maria A/daughter, appt scheduled. Makenzie Larosn LPN * Telephone Encounter - Tamiko Quinn APRN.CNP - 01/15/2022 7:56 AM EDT Please call patient to schedule follow-up within a week Tamiko Quinn APRN.CNP documented in this encounter[facility]08-[facility] History of Present illness Narrative* Tamiko Quinn APRN.CNP - 01/09/2022 10:25 AM EDT CC: Patient presents with: Back Pain HPI Dinah Nelson is a 81 year old female who presents today for above. Pain x 1 week. Located in the left lower rib/flank/thoracic area. No injury, strenuous activities, heavy lifting. Described as constant dull ache that she rates 3-4/10 and intermittent grabbing pain rated 8-9/10. Aggravated by twisting/bending and other certain movements. Associated with malaise, fatigue, feeling cold , mild SOB with exertion. Denies fever, chills, inspiratory pain, cough, wheezing, chest pain, palpitations, edema, recent respiratory illness. History of kidney stones years ago. Denies dysuria, urgency, frequency, hesitancy, hematuria. 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 Benign neoplasm of colon Benign neoplasm of stomach Cataract Both eyes Diverticulitis Diverticulosis 04/15/2011 Dysplasia of cervix 1988 Esophageal reflux Lipoma of skin and subcutaneous tissue of neck 11/08/2019 right posterior neck Mixed hyperlipidemia 03/24/2016 Polymyalgia rheumatica (HCC) 09/16/2021 PVD (peripheral vascular disease) with claudication (HCC) 07/27/2020 Thyroid nodule 11/08/2019 Unspecified hypothyroidism PAST SURGICAL HISTORY Procedure Laterality Date APPENDECTOMY BIOPSY CERVIX SINGLE/MULT/EXCISION OF LESION SPX CATARACT SURGERY, COMPLEX 2010 CHOLECYSTECTOMY Cholecystectomy COLONOSCOPY FLX DX W/COLLJ SPEC WHEN PFRMD 06/03/05 Colonoscopy with bx COLONOSCOPY FLX DX W/COLLJ SPEC WHEN PFRMD 06/03/05 Colonoscopy with polypectomy COLONOSCOPY FLX DX W/COLLJ SPEC WHEN PFRMD 08/13/2009 Colonoscopy-repeat in 3 years (-2012) COLSC FLX W/RMVL OF TUMOR POLYP LESION SNARE TQ 11/07/14 hyperplastic polyp - 5 year follow up - h/o polyps ESOPHAGOGASTRODUODENOSCOPY TRANSORAL DIAGNOSTIC 05/30/05 EGD LAPAROSCOPIC HEMICOLECTOMY Right 2006 LEEP PROCEDURE (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 DEPT)_*FL 1988 ALLERGIES Lovastatin, Recbtot-Xem-Pwk Reductase Inhibitors, Crestor [Rosuvastatin Calcium], Lipitor[Atorvastatin Calcium], Bactrim [Sulfamethoxazole], Cipro [Ciprofloxacin], Ivp Dye [Iodine], Keflex[Cephalexin], and Penicillins MEDICATIONS predniSONE (DELTASONE) 2.5 mg tablet Take 1 tablet by mouth once daily. [START ON 01/13/2022] predniSONE (DELTASONE) 1 mg tablet Take 1 tablet by mouth once daily. fexofenadine (NORY) 60 mg tablet Take 60 mg by mouth twice daily as needed. aspirin, enteric coated (ASPIR-LOW) 81 mg EC tablet Take 1 tablet by mouth every other day. FAMILY HISTORY Problem Relation Age of Onset Heart Mother Stroke Mother Heart Father heart attack Social History Tobacco Use Smoking status: Never Smokeless tobacco: Never Vaping Use Vaping Use: Never used Substance Use Topics Alcohol use: No Drug use: No PHYSICAL EXAM BP 138/72 Pulse 95 Temp 36.8 C (98.2 F) Resp 14 Wt 72.1 kg (159 lb) SpO2 98% BMI 28.85 kg/m General Appearance: well appearing, in no acute distress, alert Skin: Skin color, texture, turgor normal for age. No rashes or lesions in area of pain Eyes: conjunctiva pink and moist, no icterus, sclera white, non-injected Back: No pain to palpation, Full ROM with minor discomfort including flexion, extension, lateral side bending and rotation. Pain is reproducible with ROM Lungs: Lungs clear to auscultation. No wheezing, rhonchi, rales. Heart: RRR without murmur, gallop, or rubs. No ectopy Abdomen: Soft, non-distended. mild generalized abdominal tenderness with palpation. No guarding or rebound tenderness. Bowel sounds normal and active. No masses, organomegaly. CVA tenderness absent Musculoskeletal: No pain with palpation ribs anteriorly or posteriorly. Pain is not reproducible DATA REVIEWED: Most recent labs and imaging results. ASSESSMENT/PLAN: 1. Left sided abdominal pain - ICD9: 789.09, ICD10: R10.9 (primary diagnosis) Etiology unclear Differential Diagnosis includes Kidney stones/colic, Cystitis, and musculoskeletal Work-up with: - CBC - COMP METABOLIC PANEL - AMYLASE BLD - LIPASE BLD - URINALYSIS, WITH MICROSCOPIC - URINE CULTURE Follow-up pending results 2. Rib pain on left side - ICD9: 786.50, ICD10: R07.81 No rib tenderness with palpation. Differentials include respiratory illness, musculoskeletal, PMR Further evaluation with: - XR RIBS/CHEST 3V AP RIB/OBLS/CXR LEFT - SED RATE WESTERGREN - C-REACTIVE PROTEIN (CRP) 3. Generalized abdominal tenderness without rebound tenderness - ICD9: 789.67, ICD10: R10.817 As above - CBC - COMP METABOLIC PANEL - AMYLASE BLD - LIPASE BLD 4. Osteopenia, unspecified location - ICD9: 733.90, ICD10: M85.80 - VITAMIN D 25 HYDROXY Prescription instructions reviewed with patient as applicable. Potential red flag symptoms discussed with the patient. Reviewed appropriate action plan to take if red flag symptoms occur. Patient agreeable to treatment plan. Tamiko Quinn APRN.CNP documented in this encounterOhio [facility]07-[facility]-2022 History of Present illness Narrative* RT Ovidio(R) - 11/27/2021 1:00 PM EDT Radiology Service Progress Note PATIENT NAME: Dinah Nelson DATE OF SERVICE: November 27, 2021 TIME: 1:03 PM PATIENT IDENTITY VERIFICATION COMPLETED USING TWO (2) IDENTIFIERS: Name and Date of confirmedby patient verbally. FALL SCREENING: Has the patient had 2 falls in the last year or 1 fall with injury or currently using an Ambulatory Assistive Device (Walker, Cane, Wheelchair, Crutches, etc.)? No PATIENT GENDER DATA: Female. status: : No status: NO. PATIENT RELEVANT IMPLANT DATA REVIEWED: Not Applicable RADIOLOGY DEPARTMENT: Bone Density PERIPHERAL IV DATA: Not applicable SIGNED BY: RT Ovidio(R) November 27, 2021 1:03 PM documented in this encounterOhio [facility]04-25-2022 Instructions* Patient Instructions* Bennett Weri MD - 09/16/2021 2:49 PM EDT TELL LAB YOU HAVE TWO SETS OF BLOOD TESTS FOR October. FASTING. documented in this encounterOhio [facility]04-25-2022 History of Present illness Narrative* Bennett Weir MD - 09/16/2021 2:42 PM EDT This note was created using [employer]. Subjective Dinah Nelson is a 81 year old female. Her myalgias resolved 3 days after starting prednisone. Her weakness resolved. She was taking amlodipine but develop tongue swelling so she stopped the medication and swelling resolved. Her hypertension was controlled without medication. Review of Systems Constitutional: Negative. Respiratory: Negative. Cardiovascular: Negative. Musculoskeletal: Negative. Neurological: Negative. ACTIVE PROBLEM LIST Benign Neoplasm of Colon Mixed Hyperlipidemia Atherosclerosis of Arteries Aortic Valve Sclerosis Chronic Urticaria Obesity, Class I, Bmi 30-34.9 Multiple Thyroid Nodules Essential Hypertension Pvd (Peripheral Vascular Disease) With Claudication (Hcc) Raynaud's Phenomenon Without Gangrene Anxiety About Health Current Outpatient Medications Medication Sig fexofenadine (NORY ALLERGY) 60 mg tablet Take 60 mg by mouth twice daily as needed. predniSONE (DELTASONE) 10 mg tablet Take 1 tablet by mouth once daily. aspirin, enteric coated (ASPIR-LOW) 81 mg EC tablet Take 1 tablet by mouth every other day. No current facility-administered medications for this visit. Objective BP 132/66 (BP Site: Left Arm, BP Position: Sitting, BP Cuff Size: Large Adult) Pulse 108 Temp 36.4 C (97.5 F) (Temporal Artery) Resp 18 Wt 71.9 kg (158 lb 9.6 oz) BMI 28.09 kg/m Physical Exam Constitutional: Appearance: She is not ill-appearing. Cardiovascular: Pulses: Normal pulses. Heart sounds: Normal heart sounds. No murmur heard. No gallop. Pulmonary: Effort: Pulmonary effort is normal. Breath sounds: Normal breath sounds. Musculoskeletal: Right shoulder: No tenderness. Normal strength. Left shoulder: No tenderness. Normal strength. Right upper arm: Normal. Left upper arm: Normal. Right forearm: Normal. Left forearm: Normal. Thoracic back: No tenderness. Lumbar back: No tenderness. Right upper leg: No tenderness. Left upper leg: No tenderness. Right lower leg: No tenderness. No edema. Left lower leg: No tenderness. No edema. Neurological: General: No focal deficit present. Mental Status: She is alert. Test results pertinent to today's visit were reviewed and discussed with the patient. Assessment and Plan 1. Polymyalgia rheumatica (HCC) - ICD9: 725, ICD10: M35.3 (primary diagnosis) Shared Medical Decision Making was done: Medication: prednisone. Benefits: Medication may help inflammatory condition. Risks: Possible side effects were discussed including weight gain, diabetes mellitus. DVT. Duration: half-way 3- 12 months, depending on control of symptoms and labs. - PREDNISONE 10 MG TABLET - SED RATE WESTERGREN - C-REACTIVE PROTEIN (CRP) 2. Essential hypertension - ICD9: 401.9, ICD10: I10 - fair control - Continue diet.only for now. Bennett Weir MD documented in this encounterOhio [facility]04-14-2022 Miscellaneous Notes* Telephone Encounter - Jesica June Ma - 09/05/2021 3:36 PM EDT Patient no longer has swelling, just some soreness in mouth. She took half of an Nory. Stopped Norvasc. Advised to continue with D/C of Norvasc. Pt has f/u on 09/16/21. Went over symptoms to go to ER, problem swallowing, breathing,speaking, chest pain, faintness, dizziness, vision, confusion. Otherwise if swelling comes back can go to urgent care. * Telephone Encounter - Bennett Weir MD - 09/05/2021 12:58 PM EDT I suggest urgent care for evaluation. Discontinue amlodipine. * Telephone Encounter - Jillian Shell LPN - 09/04/2021 8:07 AM EDT Daughter calling and states pt started new medication Amlodipine yesterday and she woke up this an with swollen tongue. Woke up around 4 am and has been restless also. Denies no problem swallowing, breathing,speaking, chest pain, faintness, dizziness, vision, confusion, swelling of face, rash/itching, hives or fever. Pt has not taken the medication yet today. Please advise pt. Jillian Shell LPN documented in this [facility]04-08-2022 Miscellaneous Notes* Telephone Encounter - Bennett Weir MD - 08/30/2021 1:38 PM EDT Patient seen. documented in this [facility]04-08-2022 Instructions* Patient Instructions* Bennett Weir MD - 08/30/2021 9:35 AM EDT STOP LISINOPRIL. TOMORROW START AMLODIPINE FOR BLOOD PRESSURE. documented in this [facility]04-08-2022 History of Present illness Narrative* Bennett Weir MD - 08/30/2021 9:08 AM EDT This note was created using [employer]. Subjective Dinah Nelson is a 81 year old female. She's had muscle aches since June. It eased up during her visit 3 weeks ago, but recurred. She had aches in her shoulders, arms, back, and the back of herlegs. She felt weak in her arms at times on getting up, and Tylenol variably helped. She self adjusted her lisinopril again and stopped the lisinopril 5 mg in the evening since she felt her pains were from lisinopril. She was not taking fexofenadine much. She has chronic anxiety about her health conditions. Review of Systems Constitutional: Negative for diaphoresis, fatigue and fever. HENT: Negative. No jaw pain or jaw claudication. Eyes: Negative for visual disturbance. Respiratory: Negative for shortness of breath. Cardiovascular: Negative for chest pain, palpitations and leg swelling. Gastrointestinal: Negative for abdominal pain. Genitourinary: Negative for dysuria and hematuria. Musculoskeletal: Positive for myalgias. Negative for arthralgias, gait problem, neck pain and neck stiffness. Skin: Negative for rash. Neurological: Negative for numbness and headaches. Psychiatric/Behavioral: The patient is nervous/anxious. ACTIVE PROBLEM LIST Benign Neoplasm of Colon Mixed Hyperlipidemia Atherosclerosis of Arteries Aortic Valve Sclerosis Chronic Urticaria Obesity, Class I, Bmi 30-34.9 Multiple Thyroid Nodules Essential Hypertension Pvd (Peripheral Vascular Disease) With Claudication (Hcc) Raynaud's Phenomenon Without Gangrene Social History Tobacco Use Smoking status: Never Smoker Smokeless tobacco: Never Used Vaping Use Vaping Use: Never used Substance Use Topics Alcohol use: No Drug use: No Current Outpatient Medications Medication Sig lisinopril (ZESTRIL, PRINIVIL) 10 mg tablet Take 1 tablet by mouth every morning. lisinopril (ZESTRIL, PRINIVIL) 5 mg tablet Take 1 tablet by mouth every evening. fexofenadine (NORY) 60 mg tablet Take 60 mg by mouth once daily. aspirin, enteric coated (ASPIR-LOW) 81 mg EC tablet Take 1 tablet by mouth every other day. No current facility-administered medications for this visit. Objective BP (P) 136/64 (BP Site: Left Arm, BP Position: Sitting, BP Cuff Size: Regular Adult) Pulse (P) 90 Temp (P) 36.2 C (97.2 F) (Temporal) Resp (P) 16 Wt (P) 71.7 kg (158 lb) BMI (P) 27.99 kg/m Physical Exam Constitutional: General: She is not in acute distress. HENT: Head: Comments: No scalp tenderness or cords. Cardiovascular: Rate and Rhythm: Regular rhythm. Tachycardia present. Heart sounds: No murmur heard. No gallop. Pulmonary: Breath sounds: Normal breath sounds. No wheezing or rales. Abdominal: Tenderness: There is no abdominal tenderness. Musculoskeletal: Right shoulder: Tenderness present. No bony tenderness. Normal range of motion. Decreased strength. Left shoulder: Tenderness present. No bony tenderness. Normal range of motion. Decreased strength. Right upper arm: Tenderness present. No bony tenderness. Left upper arm: Tenderness present. No bony tenderness. Right elbow: Normal. Left elbow: Normal. Right forearm: Tenderness present. Left forearm: Tenderness present. Right wrist: Normal. Left wrist: Normal. Right hand: No tenderness. Normal strength. Left hand: No tenderness. Normal strength. Cervical back: No tenderness. Thoracic back: Tenderness present. No bony tenderness. Lumbar back: Tenderness present. No bony tenderness. Negative right straight leg raise test and negative left straight leg raise test. Right hip: Normal. Left hip: Normal. Right upper leg: Tenderness present. No bony tenderness. Left upper leg: Tenderness present. No bony tenderness. Right knee: No tenderness. Left knee: No tenderness. Right lower leg: Tenderness present. No edema. Left lower leg: Tenderness present. No edema. Right ankle: Normal. Left ankle: Normal. Lymphadenopathy: Cervical: No cervical adenopathy. Neurological: Mental Status: She is alert. Psychiatric: Attention and Perception: Attention normal. Mood and Affect: Mood is anxious. Speech: Speech normal. Behavior: Behavior normal. BP 120/70 (BP Site: Left Arm, BP Position: Sitting, BP Cuff Size: Regular Adult) Pulse 107 Temp(P) 36.2 C (97.2 F) (Temporal) Resp (P) 16 Wt (P) 71.7 kg (158 lb) BMI (P) 27.99 kg/m Assessment and Plan 1. Myalgia - ICD9: 729.1, ICD10: M79.10 (primary diagnosis) Further recommendations with results of labs today. - CBC - CK CREATINE KINASE - COMP METABOLIC PANEL - SED RATE WESTERGREN - C-REACTIVE PROTEIN (CRP) - TSH BLD - ALDOLASE BLD 2. Essential hypertension - ICD9: 401.9, ICD10: I10 - good control - Discontinue LISINOPRIL with question of myalgias. - AMLODIPINE 5 MG TABLET 3. Anxiety about health - ICD9: 300.09, ICD10: F41.8 Address at follow up. Bennett Weir MD documented in this encounterOhio [facility]04-07-2022 Miscellaneous Notes* Telephone Encounter - Makenzie Larson LPN - 08/29/2021 12:15 PM EDT Patient scheduled to see Dr. Weir, 08/30/2021. Makenzie Larson LPN * Telephone Encounter - Bennett Weir MD - 08/29/2021 10:59 AM EDT I don't get the connection with pain and routine labs. She mentioned improving shoulder pain August 06. Offer appointment with me or Tamiko for evaluation of this pain. * Telephone Encounter - KAITLYN Rodriguez - 08/28/2021 2:22 PM EDT Pt is requesting labs to be drawn sooner than October. She states that she is In a lot of pain and would like them to be checked. documented in this encounterOhio [facility] Hospital03-23-2022 Miscellaneous Notes* Letter - Mammography Coordinator - 08/14/2021 12:42 PM EDT August 14, 2021 PID: [id number] Dinah Nelson [address] [place] [address] Dear Ms. Nelson, We are pleased to inform you that the results of your recent breast imaging exam on 08/14/2021 are normal. Early detection of cancer is very important. We also understand recommendations regarding breast cancer screening are controversial. Please discuss with your primary care provider which strategy is best for you and whether a mammogram is right for you. Your imaging studies and report will be kept on file at [facility] as part of your permanent medical record and are available for your continuing care. Thank you for allowing us to help in meeting your health care needs. Sincerely, Dr. Gonzalez Interpreting Radiologist [facility] (Normal over 40) documented in this encounterOhio Valley Surgical Hospital08-25-2014 History of Past illness Narrative* Problem Noted Date Resolved Date Hematuria 01/16/2014 02/22/2015 PMB (postmenopausal bleeding) 06/20/2011 KOLTON favor benign 06/20/2011 03/24/2016 Diverticulosis 04/15/2011 03/24/2016 Last Assessment & Plan: Denies any abd pain, fevers. Denies any constipation or diarrhea. Diverticulitis 11/13/2009 04/15/2011 Overview: [facility] admission 11/02/09-11/05/09. 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 Last TSH level completed in May of 2010, in therapeutic range. HYPERLIPIDEMIA NEC/NOS 5 Last Assessment & Plan: Hyperlipidemia. Ms. Nelson reports doing well on current therapy of rosuvastatin (Crestor) 5mg. She did finally start taking this medication for lipids at the beginning of March. Denies side effects of muscle weakness or achiness other than normal aches. Her most recent lipid panels are reviewed from December 2010 and showing uncontrolled levels of TC, LDLs. LDL Chol, M[place] (mg/dL) Date Value 01/02/2011 190* Esophageal reflux 03/24/2016 Last Assessment & Plan: Notes generally well controlled with dietary monitoring. Denies any indigestion or heartburn. Occasional dysphagia- generally with liquids- intermittent. documented as of this encounter (statuses as of 08/16/2021) [facility] History of Past illness Narrative* Problem Noted Date Resolved Date Hematuria 01/16/2014 02/22/2015 PMB (postmenopausal bleeding) 06/20/2011 KOLTON favor benign 06/20/2011 03/24/2016 Diverticulosis 04/15/2011 03/24/2016 Last Assessment & Plan: Denies any abd pain, fevers. Denies any constipation or diarrhea. Diverticulitis 11/13/2009 04/15/2011 Overview: [facility] admission 11/02/09-11/05/09. 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 Last TSH level completed in May of 2010, in therapeutic range. HYPERLIPIDEMIA NEC/NOS 5 Last Assessment & Plan: Hyperlipidemia. Ms. Nelson reports doing well on current therapy of rosuvastatin (Crestor) 5mg. She did finally start taking this medication for lipids at the beginning of March. Denies side effects of muscle weakness or achiness other than normal aches. Her most recent lipid panels are reviewed from December 2010 and showing uncontrolled levels of TC, LDLs. LDL Chol, [place] (mg/dL) Date Value 01/02/2011 190* Esophageal reflux 03/24/2016 Last Assessment & Plan: Notes generally well controlled with dietary monitoring. Denies any indigestion or heartburn. Occasional dysphagia- generally with liquids- intermittent. documented as of this encounter (statuses as of 08/29/2021) [facility] of Past illness Narrative* Problem Noted Date Resolved Date Hematuria 01/16/2014 02/22/2015 PMB (postmenopausal bleeding) 06/20/2011 KOLTON favor benign 06/20/2011 03/24/2016 Diverticulosis 04/15/2011 03/24/2016 Last Assessment & Plan: Denies any abd pain, fevers. Denies any constipation or diarrhea. Diverticulitis 11/13/2009 04/15/2011 Overview: [facility] admission 11/02/09-11/05/09. 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 Last TSH level completed in May of 2010, in therapeutic range. HYPERLIPIDEMIA NEC/NOS 5 Last Assessment & Plan: Hyperlipidemia. Ms. Nelson reports doing well on current therapy of rosuvastatin (Crestor) 5mg. She did finally start taking this medication for lipids at the beginning of March. Denies side effects of muscle weakness or achiness other than normal aches. Her most recent lipid panels are reviewed from December 2010 and showing uncontrolled levels of TC, LDLs. LDL Chol, [place] (mg/dL) Date Value 01/02/2011 190* Esophageal reflux 03/24/2016 Last Assessment & Plan: Notes generally well controlled with dietary monitoring. Denies any indigestion or heartburn. Occasional dysphagia- generally with liquids- intermittent. documented as of this encounter (statuses as of 08/30/2021) [facility] of Past illness Narrative* Problem Noted Date Resolved Date Hematuria 01/16/2014 02/22/2015 PMB (postmenopausal bleeding) 06/20/2011 KOLTON favor benign 06/20/2011 03/24/2016 Diverticulosis 04/15/2011 03/24/2016 Last Assessment & Plan: Denies any abd pain, fevers. Denies any constipation or diarrhea. Diverticulitis 11/13/2009 04/15/2011 Overview: [facility] admission 11/02/09-11/05/09. 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 Last TSH level completed in May of 2010, in therapeutic range. HYPERLIPIDEMIA NEC/NOS 5 Last Assessment & Plan: Hyperlipidemia. Ms. Nelson reports doing well on current therapy of rosuvastatin (Crestor) 5mg. She did finally start taking this medication for lipids at the beginning of March. Denies side effects of muscle weakness or achiness other than normal aches. Her most recent lipid panels are reviewed from December 2010 and showing uncontrolled levels of TC, LDLs. LDL Chol, [place] (mg/dL) Date Value 01/02/2011 190* Esophageal reflux 03/24/2016 Last Assessment & Plan: Notes generally well controlled with dietary monitoring. Denies any indigestion or heartburn. Occasional dysphagia- generally with liquids- intermittent. documented as of this encounter (statuses as of 08/30/2021) [facility] of Past illness Narrative* Problem Noted Date Resolved Date Hematuria 01/16/2014 02/22/2015 PMB (postmenopausal bleeding) 06/20/2011 [place]OL[place] favor benign 06/20/2011 03/24/2016 Diverticulosis 04/15/2011 03/24/2016 Last Assessment & Plan: Denies any abd pain, fevers. Denies any constipation or diarrhea. Diverticulitis 11/13/2009 04/15/2011 Overview: [facility] admission 11/02/09-11/05/09. 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 Last TSH level completed in May of 2010, in therapeutic range. HYPERLIPIDEMIA NEC/NOS 5 Last Assessment & Plan: Hyperlipidemia. Ms. Nelson reports doing well on current therapy of rosuvastatin (Crestor) 5mg. She did finally start taking this medication for lipids at the beginning of March. Denies side effects of muscle weakness or achiness other than normal aches. Her most recent lipid panels are reviewed from December 2010 and showing uncontrolled levels of TC, LDLs. LDL Chol, Jamil[place] (mg/dL) Date Value 01/02/2011 190* Esophageal reflux 03/24/2016 Last Assessment & Plan: Notes generally well controlled with dietary monitoring. Denies any indigestion or heartburn. Occasional dysphagia- generally with liquids- intermittent. documented as of this encounter (statuses as of 09/05/2021) [facility]08-[facility]-2014 History of Past illness Narrative* Problem Noted Date Resolved Date Hematuria 01/16/2014 02/22/2015 PMB (postmenopausal bleeding) 06/20/2011 [place] favor benign 06/20/2011 03/24/2016 Diverticulosis 04/15/2011 03/24/2016 Last Assessment & Plan: Denies any abd pain, fevers. Denies any constipation or diarrhea. Diverticulitis 11/13/2009 04/15/2011 Overview: [facility] admission 11/02/09-11/05/09. 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 Last TSH level completed in May of 2010, in therapeutic range. HYPERLIPIDEMIA NEC/NOS 5 Last Assessment & Plan: Hyperlipidemia. Ms. Nelson reports doing well on current therapy of rosuvastatin (Crestor) 5mg. She did finally start taking this medication for lipids at the beginning of March. Denies side effects of muscle weakness or achiness other than normal aches. Her most recent lipid panels are reviewed from December 2010 and showing uncontrolled levels of TC, LDLs. LDL Chol, Jamilah (mg/dL) Date Value 01/02/2011 190* Esophageal reflux 03/24/2016 Last Assessment & Plan: Notes generally well controlled with dietary monitoring. Denies any indigestion or heartburn. Occasional dysphagia- generally with liquids- intermittent. documented as of this encounter (statuses as of 09/09/2021) [facility] History of Past illness Narrative* Problem Noted Date Resolved Date Hematuria 01/16/2014 02/22/2015 PMB (postmenopausal bleeding) 06/20/2011 [place] favor benign 06/20/2011 03/24/2016 Diverticulosis 04/15/2011 03/24/2016 Last Assessment & Plan: Denies any abd pain, fevers. Denies any constipation or diarrhea. Diverticulitis 11/13/2009 04/15/2011 Overview: [facility] admission 11/02/09-11/05/09. 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 Last TSH level completed in May of 2010, in therapeutic range. HYPERLIPIDEMIA NEC/NOS 5 Last Assessment & Plan: Hyperlipidemia. Ms. Nelson reports doing well on current therapy of rosuvastatin (Crestor) 5mg. She did finally start taking this medication for lipids at the beginning of March. Denies side effects of muscle weakness or achiness other than normal aches. Her most recent lipid panels are reviewed from December 2010 and showing uncontrolled levels of TC, LDLs. LDL Chol, [place] (mg/dL) Date Value 01/02/2011 190* Esophageal reflux 03/24/2016 Last Assessment & Plan: Notes generally well controlled with dietary monitoring. Denies any indigestion or heartburn. Occasional dysphagia- generally with liquids- intermittent. documented as of this encounter (statuses as of 09/16/2021) [facility] History of Past illness Narrative* Problem Noted Date Resolved Date Hematuria 01/16/2014 02/22/2015 PMB (postmenopausal bleeding) 06/20/2011 [place] favor benign 06/20/2011 03/24/2016 Diverticulosis 04/15/2011 03/24/2016 Last Assessment & Plan: Denies any abd pain, fevers. Denies any constipation or diarrhea. Diverticulitis 11/13/2009 04/15/2011 Overview: [facility] admission 11/02/09-11/05/09. 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 Last TSH level completed in May of 2010, in therapeutic range. HYPERLIPIDEMIA NEC/NOS Last Assessment & Plan: Hyperlipidemia. Ms. Nelson reports doing well on current therapy of rosuvastatin (Crestor) 5mg. She did finally start taking this medication for lipids at the beginning of March. Denies side effects of muscle weakness or achiness other than normal aches. Her most recent lipid panels are reviewed from December 2010 and showing uncontrolled levels of TC, LDLs. LDL Chol, Jamilah (mg/dL) Date Value 01/02/2011 190* Esophageal reflux 03/24/2016 Last Assessment & Plan: Notes generally well controlled with dietary monitoring. Denies any indigestion or heartburn. Occasional dysphagia- generally with liquids- intermittent. documented as of this encounter (statuses as of 11/28/2021) [facility] History of Past illness Narrative* Problem Noted Date Resolved Date Hematuria 01/16/2014 02/22/2015 PMB (postmenopausal bleeding) 06/20/2011 [place] favor benign 06/20/2011 03/24/2016 Diverticulosis 04/15/2011 03/24/2016 Last Assessment & Plan: Denies any abd pain, fevers. Denies any constipation or diarrhea. Diverticulitis 11/13/2009 04/15/2011 Overview: [facility] admission 11/02/09-11/05/09. 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 Last TSH level completed in May of 2010, in therapeutic range. HYPERLIPIDEMIA NEC/NOS Last Assessment & Plan: Hyperlipidemia. Ms. Nelson reports doing well on current therapy of rosuvastatin (Crestor) 5mg. She did finally start taking this medication for lipids at the beginning of March. Denies side effects of muscle weakness or achiness other than normal aches. Her most recent lipid panels are reviewed from December 2010 and showing uncontrolled levels of TC, LDLs. LDL Chol, Jamil[place] (mg/dL) Date Value 01/02/2011 190* Esophageal reflux 03/24/2016 Last Assessment & Plan: Notes generally well controlled with dietary monitoring. Denies any indigestion or heartburn. Occasional dysphagia- generally with liquids- intermittent. documented as of this encounter (statuses as of 01/09/2022) [facility] History of Past illness Narrative* Problem Noted Date Resolved Date Hematuria 01/16/2014 02/22/2015 PMB (postmenopausal bleeding) 06/20/2011 [place] favor benign 06/20/2011 03/24/2016 Diverticulosis 04/15/2011 03/24/2016 Last Assessment & Plan: Denies any abd pain, fevers. Denies any constipation or diarrhea. Diverticulitis 11/13/2009 04/15/2011 Overview: [facility] admission 11/02/09-11/05/09. 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 Last TSH level completed in May of 2010, in therapeutic range. HYPERLIPIDEMIA NEC/NOS Last Assessment & Plan: Hyperlipidemia. Ms. Nelson reports doing well on current therapy of rosuvastatin (Crestor) 5mg. She did finally start taking this medication for lipids at the beginning of March. Denies side effects of muscle weakness or achiness other than normal aches. Her most recent lipid panels are reviewed from December 2010 and showing uncontrolled levels of TC, LDLs. LDL Chol, Jamilah (mg/dL) Date Value 01/02/2011 190* Esophageal reflux 03/24/2016 Last Assessment & Plan: Notes generally well controlled with dietary monitoring. Denies any indigestion or heartburn. Occasional dysphagia- generally with liquids- intermittent. documented as of this encounter (statuses as of 01/15/2022) [facility] History of Past illness Narrative* Problem Noted Date Resolved Date Hematuria 01/16/2014 02/22/2015 PMB (postmenopausal bleeding) 06/20/2011 [place] favor benign 06/20/2011 03/24/2016 Diverticulosis 04/15/2011 03/24/2016 Last Assessment & Plan: Denies any abd pain, fevers. Denies any constipation or diarrhea. Diverticulitis 11/13/2009 04/15/2011 Overview: [facility] admission 11/02/09-11/05/09. 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 Last TSH level completed in May of 2010, in therapeutic range. HYPERLIPIDEMIA NEC/NOS 5 Last Assessment & Plan: Hyperlipidemia. Ms. Nelson reports doing well on current therapy of rosuvastatin (Crestor) 5mg. She did finally start taking this medication for lipids at the beginning of March. Denies side effects of muscle weakness or achiness other than normal aches. Her most recent lipid panels are reviewed from December 2010 and showing uncontrolled levels of TC, LDLs. LDL Chol, [place] (mg/dL) Date Value 01/02/2011 190* Esophageal reflux 03/24/2016 Last Assessment & Plan: Notes generally well controlled with dietary monitoring. Denies any indigestion or heartburn. Occasional dysphagia- generally with liquids- intermittent. documented as of this encounter (statuses as of 01/20/2022) [facility] History of Past illness Narrative* Problem Noted Date Resolved Date Hematuria 01/16/2014 02/22/2015 PMB (postmenopausal bleeding) 06/20/2011 [place] favor benign 06/20/2011 03/24/2016 Diverticulosis 04/15/2011 03/24/2016 Last Assessment & Plan: Denies any abd pain, fevers. Denies any constipation or diarrhea. Diverticulitis 11/13/2009 04/15/2011 Overview: [facility] admission 11/02/09-11/05/09. 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 Last TSH level completed in May of 2010, in therapeutic range. HYPERLIPIDEMIA NEC/NOS 5 Last Assessment & Plan: Hyperlipidemia. Ms. Nelson reports doing well on current therapy of rosuvastatin (Crestor) 5mg. She did finally start taking this medication for lipids at the beginning of March. Denies side effects of muscle weakness or achiness other than normal aches. Her most recent lipid panels are reviewed from December 2010 and showing uncontrolled levels of TC, LDLs. LDL Chol, Jamilah (mg/dL) Date Value 01/02/2011 190* Esophageal reflux 03/24/2016 Last Assessment & Plan: Notes generally well controlled with dietary monitoring. Denies any indigestion or heartburn. Occasional dysphagia- generally with liquids- intermittent. documented as of this encounter (statuses as of 02/18/2022) [facility] History of Past illness Narrative* Problem Noted Date Resolved Date Hematuria 01/16/2014 02/22/2015 PMB (postmenopausal bleeding) 06/20/2011 [place] favor benign 06/20/2011 03/24/2016 Diverticulosis 04/15/2011 03/24/2016 Last Assessment & Plan: Denies any abd pain, fevers. Denies any constipation or diarrhea. Diverticulitis 11/13/2009 04/15/2011 Overview: [facility] admission 11/02/09-11/05/09. 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 Last TSH level completed in May of 2010, in therapeutic range. HYPERLIPIDEMIA NEC/NOS 5 Last Assessment & Plan: Hyperlipidemia. Ms. Nelson reports doing well on current therapy of rosuvastatin (Crestor) 5mg. She did finally start taking this medication for lipids at the beginning of March. Denies side effects of muscle weakness or achiness other than normal aches. Her most recent lipid panels are reviewed from December 2010 and showing uncontrolled levels of TC, LDLs. LDL Chol, Jamil[place] (mg/dL) Date Value 01/02/2011 190* Esophageal reflux 03/24/2016 Last Assessment & Plan: Notes generally well controlled with dietary monitoring. Denies any indigestion or heartburn. Occasional dysphagia- generally with liquids- intermittent. documented as of this encounter (statuses as of 03/27/2022) [facility] History of Past illness Narrative* Problem Noted Date Resolved Date Hematuria 01/16/2014 02/22/2015 PMB (postmenopausal bleeding) 06/20/2011 [place] favor benign 06/20/2011 03/24/2016 Diverticulosis 04/15/2011 03/24/2016 Last Assessment & Plan: Denies any abd pain, fevers. Denies any constipation or diarrhea. Diverticulitis 11/13/2009 04/15/2011 Overview: [facility] admission 11/02/09-11/05/09. 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 Last TSH level completed in May of 2010, in therapeutic range. HYPERLIPIDEMIA NEC/NOS 5 Last Assessment & Plan: Hyperlipidemia. Ms. Nelson reports doing well on current therapy of rosuvastatin (Crestor) 5mg. She did finally start taking this medication for lipids at the beginning of March. Denies side effects of muscle weakness or achiness other than normal aches. Her most recent lipid panels are reviewed from December 2010 and showing uncontrolled levels of TC, LDLs. LDL Chol, [place] (mg/dL) Date Value 01/02/2011 190* Esophageal reflux 03/24/2016 Last Assessment & Plan: Notes generally well controlled with dietary monitoring. Denies any indigestion or heartburn. Occasional dysphagia- generally with liquids- intermittent. documented as of this encounter (statuses as of 04/11/2022) [facility] History of Past illness Narrative* Problem Noted Date Resolved Date Hematuria 01/16/2014 02/22/2015 PMB (postmenopausal bleeding) 06/20/2011 [place] favor benign 06/20/2011 03/24/2016 Diverticulosis 04/15/2011 03/24/2016 Last Assessment & Plan: Denies any abd pain, fevers. Denies any constipation or diarrhea. Diverticulitis 11/13/2009 04/15/2011 Overview: [facility] admission 11/02/09-11/05/09. 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 Last TSH level completed in May of 2010, in therapeutic range. HYPERLIPIDEMIA NEC/NOS 5 Last Assessment & Plan: Hyperlipidemia. Ms. Nelson reports doing well on current therapy of rosuvastatin (Crestor) 5mg. She did finally start taking this medication for lipids at the beginning of March. Denies side effects of muscle weakness or achiness other than normal aches. Her most recent lipid panels are reviewed from December 2010 and showing uncontrolled levels of TC, LDLs. LDL Chol, [place] (mg/dL) Date Value 01/02/2011 190* Esophageal reflux 03/24/2016 Last Assessment & Plan: Notes generally well controlled with dietary monitoring. Denies any indigestion or heartburn. Occasional dysphagia- generally with liquids- intermittent. documented as of this encounter (statuses as of 05/07/2022) [facility] History of Past illness Narrative* Problem Noted Date Resolved Date Hematuria 01/16/2014 02/22/2015 PMB (postmenopausal bleeding) 06/20/2011 [place] favor benign 06/20/2011 03/24/2016 Diverticulosis 04/15/2011 03/24/2016 Last Assessment & Plan: Denies any abd pain, fevers. Denies any constipation or diarrhea. Diverticulitis 11/13/2009 04/15/2011 Overview: [facility] admission 11/02/09-11/05/09. 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 Last TSH level completed in May of 2010, in therapeutic range. HYPERLIPIDEMIA NEC/NOS 5 Last Assessment & Plan: Hyperlipidemia. Ms. Nelson reports doing well on current therapy of rosuvastatin (Crestor) 5mg. She did finally start taking this medication for lipids at the beginning of March. Denies side effects of muscle weakness or achiness other than normal aches. Her most recent lipid panels are reviewed from December 2010 and showing uncontrolled levels of TC, LDLs. LDL Chol, [place] (mg/dL) Date Value 01/02/2011 190* Esophageal reflux 03/24/2016 Last Assessment & Plan: Notes generally well controlled with dietary monitoring. Denies any indigestion or heartburn. Occasional dysphagia- generally with liquids- intermittent. documented as of this encounter (statuses as of 05/17/2022) [facility] History of Past illness Narrative* Problem Noted Date Resolved Date Hematuria 01/16/2014 02/22/2015 PMB (postmenopausal bleeding) 06/20/2011 [place] favor benign 06/20/2011 03/24/2016 Diverticulosis 04/15/2011 03/24/2016 Last Assessment & Plan: Denies any abd pain, fevers. Denies any constipation or diarrhea. Diverticulitis 11/13/2009 04/15/2011 Overview: [facility] admission 11/02/09-11/05/09. 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 Last TSH level completed in May of 2010, in therapeutic range. HYPERLIPIDEMIA NEC/NOS 5 Last Assessment & Plan: Hyperlipidemia. Ms. Nelson reports doing well on current therapy of rosuvastatin (Crestor) 5mg. She did finally start taking this medication for lipids at the beginning of March. Denies side effects of muscle weakness or achiness other than normal aches. Her most recent lipid panels are reviewed from December 2010 and showing uncontrolled levels of TC, LDLs. LDL Chol, Jamil[place] (mg/dL) Date Value 01/02/2011 190* Esophageal reflux 03/24/2016 Last Assessment & Plan: Notes generally well controlled with dietary monitoring. Denies any indigestion or heartburn. Occasional dysphagia- generally with liquids- intermittent. documented as of this encounter (statuses as of 05/25/2022) [facility] History of Past illness Narrative* Problem Noted Date Resolved Date Hematuria 01/16/2014 02/22/2015 PMB (postmenopausal bleeding) 06/20/2011 [place] favor benign 06/20/2011 03/24/2016 Diverticulosis 04/15/2011 03/24/2016 Last Assessment & Plan: Denies any abd pain, fevers. Denies any constipation or diarrhea. Diverticulitis 11/13/2009 04/15/2011 Overview: [facility] admission 11/02/09-11/05/09. 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 Last TSH level completed in May of 2010, in therapeutic range. HYPERLIPIDEMIA NEC/NOS 5 Last Assessment & Plan: Hyperlipidemia. Ms. Nelson reports doing well on current therapy of rosuvastatin (Crestor) 5mg. She did finally start taking this medication for lipids at the beginning of March. Denies side effects of muscle weakness or achiness other than normal aches. Her most recent lipid panels are reviewed from December 2010 and showing uncontrolled levels of TC, LDLs. LDL Chol, [place] (mg/dL) Date Value 01/02/2011 190* Esophageal reflux 03/24/2016 Last Assessment & Plan: Notes generally well controlled with dietary monitoring. Denies any indigestion or heartburn. Occasional dysphagia- generally with liquids- intermittent. documented as of this encounter (statuses as of 05/28/2022) [facility] History of Past illness Narrative* Problem Noted Date Resolved Date Hematuria 01/16/2014 02/22/2015 PMB (postmenopausal bleeding) 06/20/2011 [place] favor benign 06/20/2011 03/24/2016 Diverticulosis 04/15/2011 03/24/2016 Last Assessment & Plan: Denies any abd pain, fevers. Denies any constipation or diarrhea. Diverticulitis 11/13/2009 04/15/2011 Overview: [facility] admission 11/02/09-11/05/09. 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 Last TSH level completed in May of 2010, in therapeutic range. HYPERLIPIDEMIA NEC/NOS 5 Last Assessment & Plan: Hyperlipidemia. Ms. Nelson reports doing well on current therapy of rosuvastatin (Crestor) 5mg. She did finally start taking this medication for lipids at the beginning of March. Denies side effects of muscle weakness or achiness other than normal aches. Her most recent lipid panels are reviewed from December 2010 and showing uncontrolled levels of TC, LDLs. LDL Chol, [place] (mg/dL) Date Value 01/02/2011 190* Esophageal reflux 03/24/2016 Last Assessment & Plan: Notes generally well controlled with dietary monitoring. Denies any indigestion or heartburn. Occasional dysphagia- generally with liquids- intermittent. documented as of this encounter (statuses as of 07/17/2022) [facility] Diagnosis Myalgia- Primary Mylagia and myositis, unspecified Essential hypertension Unspecified essential hypertension Anxiety about health [facility] Polymyalgia rheumatica (HCC)- Primary Polymyalgia rheumatica [facility] Diagnosis Polymyalgia rheumatica (HCC)- Primary Polymyalgia rheumatica Essential hypertension Unspecified essential hypertension [facility] use of systemic steroids [facility] Diagnosis Left sided abdominal pain- Primary Abdominal pain, unspecified site Rib pain on left side Chest pain, unspecified Generalized abdominal tenderness without rebound tenderness Osteopenia, unspecified location [facility] Diagnosis Synovitis of wrist- Primary Other tenosynovitis of hand and wrist Polymyalgia rheumatica (HCC) Polymyalgia rheumatica Essential hypertension Unspecified essential hypertension documented [facility] encounter [facility] Diagnosis Palpitations- Primary [facility] Diagnosis PVD (peripheral vascular disease) (HCC)- Primary Peripheral vascular disease, unspecified [facility] Diagnosis PVD (peripheral vascular disease) (HCC)- Primary Peripheral vascular disease, unspecified [facility] Diagnosis Flu-like symptoms- Primary Other general symptoms Acute upper respiratory infection, unspecified Polymyalgia rheumatica (HCC) Polymyalgia rheumatica documented in this encounter [facility] Diagnosis Hypertension, essential- Primary Unspecified essential hypertension [facility] Diagnosis Medicare annual wellness visit, subsequent- Primary Routine general medical examination at a health care facility Left foot pain Pain in limb documented [facility] this [facility] Diagnosis Pain in left foot- Primary Pain in limb [facility]* Diagnosis 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 of unspecified site Left foot pain Pain in limb documented [facility] Diagnosis Skin tear of left forearm without complication, initial encounter- Primary [facility] Diagnosis Diarrhea, unspecified type- Primary [facility] Diagnosis Pain in left foot Pain in limb [facility] Diagnosis Encounter for screening mammogram for malignant neoplasm of breast Other screening mammogram [facility] Diagnosis Abnormal thyroid ultrasound Nonspecific abnormal results of thyroid function study documented [facility] this encounter [facility] Diagnosis PVD (peripheral vascular disease) (HCC)- Primary Peripheral vascular disease, unspecified [facility] Diagnosis Acute pain of right knee- Primary Essential hypertension Unspecified essential hypertension Multiple thyroid nodules Nontoxic multinodular goiter Mixed hyperlipidemia Aortic valve sclerosis Aortic valve disorders [facility]* Diagnosis Mixed hyperlipidemia- Primary documented in this encounter [facility] for referral (narrative)* Diagnostic Procedure Only (Urgent) - Closed Specialty Diagnoses / Procedures Referred By Contac t Referred To Contact XR IMAGING Diagnoses Rib pain on left side Procedures XR RIBS/CHEST 3V AP RIB/OBLS/CXR LEFT RADEX RIBS UNI W/POSTEROANT CH MINIMUM 3 VIEWS Tamiko Quinn, [employer] [address] [place] [address] Xr Imaging Referral ID Status Reason Start Date Expiration Date V isits Requested Visits Authorized [id number] Closed Auto-Generate d Referral 01/09/2022 02/08/2023 1 1 [facility] for referral (narrative)* Outpatient Procedure (Routine) - Pending Review Specialty Diagnoses / Procedures Referred By Contac t Referred To Contact [facility] Diagnoses PVD (peripheral vascular disease) (HCC) Procedures PVR LEG AMBER VAS LAB NON-INVASIVE PHYSIOLOGIC STUDY EXTREMITY 3 Kirsten Luna DO [address] [place] [address] [facility] [place][Note 2] [facility] [place] [address] [place] [address] Referral ID Status Reason Start Date Expiration Date Visits Requested Visits Authorized [id number] Pending Review Auto-Generat ed Referral 03/27/2022 03/26/2023 1 1 [facility] for referral (narrative)* Outpatient Procedure (Routine) - Authorized Specialty Diagnoses / Procedures Referred By Contac t Referred To Contact [facility] Diagnoses PVD (peripheral vascular disease) (HCC) Procedures PVR LEG [facility]BER VAS LAB NON-INVASIVE PHYSIOLOGIC STUDY EXTREMITY 3 Kirsten Luna DO [address] [place] [address] [facility] [place] [address] [place] [address] Referral ID Status Reason Start Date Expiration Date Visits Requested Visits Authorized [id number] Authorized Auto-Generat ed Referral 04/03/2023 1 1 [facility] for referral (narrative)* Diagnostic Procedure Only (Routine) - Pending Review Specialty Diagnoses / Procedures Referred By Contac t Referred To Contact XR IMAGING Diagnoses Pain in left foot Procedures XR FOOT GENERAL 3V AP/LAT/OBL LEFT RADEX FOOT COMPLETE MINIMUM 3 VIEWS Gabriella Govea [address] [place] [address] Xr Imaging Referral ID Status Reason Start Date Expiration Date Visits Requested Visits Authorized [id number] Pending Review Auto-Generat ed Referral 12/15/2022 01/14/2024 1 1 [facility] for referral (narrative)* Diagnostic Procedure Only (Routine) - Closed Specialty Diagnoses / Procedures Referred By Contac t Referred To Contact XR IMAGING Diagnoses Pain in left foot Procedures XR FOOT GENERAL 3V AP/LAT/OBL LEFT RADEX FOOT COMPLETE MINIMUM 3 VIEWS Gabriella Govea [address] [place] [address] Xr Imaging [id number] Referral ID Status Reason Start Date Expiration Date V isits Requested Visits Authorized [id number] Closed Auto-Generate d Referral 12/15/2022 01/14/2024 1 1 [facility] for referral (narrative)* Diagnostic Procedure Only (Routine) - Closed Specialty Diagnoses / Procedures Referred By Contac t Referred To Contact BR IMAGING Diagnoses Encounter for screening mammogram for malignant neoplasm of breast Procedures FLORI SCREENING SCREENING MAMMOGRAPHY BI 2-VIEW BREAST INC Bennett Hernandez MD [address] [place] [address] [facility] [address] [place] [address] Referral ID Status Reason Start Date Expiration Date V isits Requested Visits Authorized [id number] Closed Auto-Generate d Referral 08/29/2022 09/28/2023 1 1 [facility] for referral (narrative)* Diagnostic Procedure Only (Routine) - Closed Specialty Diagnoses / Procedures Referred By Contac t Referred To Contact US IMAGING Diagnoses Abnormal thyroid ultrasound Procedures US THYROID/PARATHYROID ULTRASOUND OF THYROID Della Farooq MD [address] [place] [address] [place] [address] Referral ID Status Reason Start Date Expiration Date V isits Requested Visits Authorized [id number] Closed Auto-Generate d Referral 05/16/2021 06/15/2022 1 1 [facility] for referral (narrative)* Outpatient Procedure (Routine) - Authorized Specialty Diagnoses / Procedures Referred By Contac t Referred To Contact [facility] Diagnoses PVD (peripheral vascular disease) (HCC) Procedures PVR ANK/MINAYA/TOE [facility]BER VAS LAB NON-INVAS PHYSIOLOGIC STD EXTREMITY ART 2 LEVEL Kirsten Leon DO [address] [place] [address] [facility] [place] [address] [place] [address] Referral ID Status Reason Start Date Expiration Date Visits Requested Visits Authorized [id number] Authorized Auto-Generat ed Referral 03/31/2023 03/30/2024 1 1 [facility] for visit Narrative* Diagnostic Procedure Only (Routine) - Closed Specialty Diagnoses / Procedures Referred By Contac t Referred To Contact XR IMAGING Diagnoses Pain in left foot Procedures XR FOOT GENERAL 3V AP/LAT/OBL LEFT RADEX FOOT COMPLETE MINIMUM 3 VIEWS Gabriella Govea [address] [place] [address] [place] [address] Referral ID Status Reason Start Date Expiration Date V isits Requested Visits Authorized [id number] Closed Auto-Generate d Referral 12/15/2022 01/14/2024 1 1 [facility]* Diagnostic Procedure Only (Routine) - Closed Specialty Diagnoses / Procedures Referred By Contac t Referred To Contact BR IMAGING Diagnoses Encounter for screening mammogram for malignant neoplasm of breast Procedures FLORI SCREENING SCREENING MAMMOGRAPHY BI 2-VIEW BREAST INC CAD Bennett Weir MD [address] [place] [id number] [facility] [address] [place] [address] Referral ID Status Reason Start Date Expiration Date V isits Requested Visits Authorized [id number] Closed Auto-Generate d Referral 08/29/2022 09/28/2023 1 1 [facility] Reason for Referral Specialty Diagnoses / Procedures Referred By Contac t Referred To Contact Rheumatology Diagnoses Polymyalgia rheumatica (HCC) Synovitis of wrist Procedures CONSULT TO RHEUM/IMMUN DISEASE OFFICE/OUTPATIENT [facility] MDM 60-74 MINUTES Bennett Weir MD [address] [place] [id number] Referral ID Status Reason Start Date Expiration Date Visits Requested Visits Authorized [id number] Authorized PCP Requested Referral 01/20/2022 01/20/2023 1 1 Specialty Diagnoses / Procedures Referred By Contac t Referred To Contact Podiatry Diagnoses Left foot pain Procedures CONSULT TO PODIATRY OFFICE/OUTPATIENT [facility] MDM 60-74 MINUTES Tamiko Quinn APRN.CNP [address] [place] [address] Referral ID Status Reason Start Date Expiration Date Visits Requested Visits Authorized [id number] Authorized PCP Requested Referral 11/21/2022 11/21/2023 1 1 Health Concerns Infection Onset Date Last Indicated Resolved Time COVID-19 Confirmed 05/07/2022 05/07/2022 8:51 PM EST Summary Purpose Family History No Family History Records Found Advance Directives No Advanced Directives Records Found Additional Source Comments Source Comments (unrecognize d section and content) In the event this informatio n is protected by the Federal Confidentiality of Alcohol and Drug Abuse Patient Records regulations: The Federal rules restrict any use of the information to criminally investigate or prosecute any alcohol or drug abuse patient.[facility] event this information is protected by the Federal Confidentiality of Alcohol and Drug Abuse Patient Records regulations: The Federal rules restrict any use of the information to criminally investigate or prosecute any alcohol or drug abuse patient.[facility] the event this information is protected by the Federal Confidentiality of Alcohol and Drug Abuse Patient Records regulations: The Federal rules restrict any use of the information to criminally investigate or prosecute any alcohol or drug abuse patient.[facility] the event this information is protected by the Federal Confidentiality of Alcohol and Drug Abuse Patient Records regulations: The Federal rules restrict any use of the information to criminally investigate or prosecute any alcohol or drug abuse patient.[facility] the event this information is protected by the Federal Confidentiality of Alcohol and Drug Abuse Patient Records regulations: The Federal rules restrict any use of the information to criminally investigate or prosecute any alcohol or drug abuse patient.[facility]In the event this information is protected by the Federal Confidentiality of Alcohol and Drug Abuse Patient Records regulations: The Federal rules restrict any use of the information to criminally investigate or prosecute any alcohol or drug abuse patient.[facility]In the event this information is protected by the Federal Confidentiality of Alcohol and Drug Abuse Patient Records regulations: The Federal rules restrict any use of the information to criminally investigate or prosecute any alcohol or drug abuse patient.[facility]In the event this information is protected by the Federal Confidentiality of Alcohol and Drug Abuse Patient Records regulations: The Federal rules restrict any use of the information to criminally investigate or prosecute any alcohol or drug abuse patient.[facility] the event this information is protected by the Federal Confidentiality of Alcohol and Drug Abuse Patient Records regulations: The Federal rules restrict any use of the information to criminally investigate or prosecute any alcohol or drug abuse patient.[facility]In the event this information is protected by the Federal Confidentiality of Alcohol and Drug Abuse Patient Records regulations: The Federal rules restrict any use of the information to criminally investigate or prosecute any alcohol or drug abuse patient.[facility]In the event this information is protected by the Federal Confidentiality of Alcohol and Drug Abuse Patient Records regulations: The Federal rules restrict any use of the information to criminally investigate or prosecute any alcohol or drug abuse patient.[facility]In the event this information is protected by the Federal Confidentiality of Alcohol and Drug Abuse Patient Records regulations: The Federal rules restrict any use of the information to criminally investigate or prosecute any alcohol or drug abuse patient.[facility]In the event this information is protected by the Federal Confidentiality of Alcohol and Drug Abuse Patient Records regulations: The Federal rules restrict any use of the information to criminally investigate or prosecute any alcohol or drug abuse patient.[facility]In the event this information is protected by the Federal Confidentiality of Alcohol and Drug Abuse Patient Records regulations: The Federal rules restrict any use of the information to criminally investigate or prosecute any alcohol or drug abuse patient.[facility]In the event this information is protected by the Federal Confidentiality of Alcohol and Drug Abuse Patient Records regulations: The Federal rules restrict any use of the information to criminally investigate or prosecute any alcohol or drug abuse patient.[facility]In the event this information is protected by the Federal Confidentiality of Alcohol and Drug Abuse Patient Records regulations: The Federal rules restrict any use of the information to criminally investigate or prosecute any alcohol or drug abuse patient.[facility]In the event this information is protected by the Federal Confidentiality of Alcohol and Drug Abuse Patient Records regulations: The Federal rules restrict any use of the information to criminally investigate or prosecute any alcohol or drug abuse patient.[facility]In the event this information is protected by the Federal Confidentiality of Alcohol and Drug Abuse Patient Records regulations: The Federal rules restrict any use of the information to criminally investigate or prosecute any alcohol or drug abuse patient.[facility] HospitalIn the event this information is protected by the Federal Confidentiality of Alcohol and Drug Abuse Patient Records regulations: The Federal rules restrict any use of the information to criminally investigate or prosecute any alcohol or drug abuse patient.[facility]In the event this information is protected by the Federal Confidentiality of Alcohol and Drug Abuse Patient Records regulations: The Federal rules restrict any use of the information to criminally investigate or prosecute any alcohol or drug abuse patient.[facility] HospitalIn the event this information is protected by the Federal Confidentiality of Alcohol and Drug Abuse Patient Records regulations: The Federal rules restrict any use of the information to criminally investigate or prosecute any alcohol or drug abuse patient.[facility]In the event this information is protected by the Federal Confidentiality of Alcohol and Drug Abuse Patient Records regulations: The Federal rules restrict any use of the information to criminally investigate or prosecute any alcohol or drug abuse patient.[facility] HospitalIn the event this information is protected by the Federal Confidentiality of Alcohol and Drug Abuse Patient Records regulations: The Federal rules restrict any use of the information to criminally investigate or prosecute any alcohol or drug abuse patient.[facility]In the event this information is protected by the Federal Confidentiality of Alcohol and Drug Abuse Patient Records regulations: The Federal rules restrict any use of the information to criminally investigate or prosecute any alcohol or drug abuse patient.[facility]In the event this information is protected by the Federal Confidentiality of Alcohol and Drug Abuse Patient Records regulations: The Federal rules restrict any use of the information to criminally investigate or prosecute any alcohol or drug abuse patient.[facility]In the event this information is protected by the Federal Confidentiality of Alcohol and Drug Abuse Patient Records regulations: The Federal rules restrict any use of the information to criminally investigate or prosecute any alcohol or drug abuse patient.[facility]In the event this information is protected by the Federal Confidentiality of Alcohol and Drug Abuse Patient Records regulations: The Federal rules restrict any use of the information to criminally investigate or prosecute any alcohol or drug abuse patient.[facility]In the event this information is protected by the Federal Confidentiality of Alcohol and Drug Abuse Patient Records regulations: The Federal rules restrict any use of the information to criminally investigate or prosecute any alcohol or drug abuse patient.[facility] HospitalIn the event this information is protected by the Federal Confidentiality of Alcohol and Drug Abuse Patient Records regulations: The Federal rules restrict any use of the information to criminally investigate or prosecute any alcohol or drug abuse patient.[facility]In the event this information is protected by the Federal Confidentiality of Alcohol and Drug Abuse Patient Records regulations: The Federal rules restrict any use of the information to criminally investigate or prosecute any alcohol or drug abuse patient.[facility]In the event this information is protected by the Federal Confidentiality of Alcohol and Drug Abuse Patient Records regulations: The Federal rules restrict any use of the information to criminally investigate or prosecute any alcohol or drug abuse patient.[facility] HospitalIn the event this information is protected by the Federal Confidentiality of Alcohol and Drug Abuse Patient Records regulations: The Federal rules restrict any use of the information to criminally investigate or prosecute any alcohol or drug abuse patient.[facility] HospitalIn the event this information is protected by the Federal Confidentiality of Alcohol and Drug Abuse Patient Records regulations: The Federal rules restrict any use of the information to criminally investigate or prosecute any alcohol or drug abuse patient.[facility] HospitalIn the event this information is protected by the Federal Confidentiality of Alcohol and Drug Abuse Patient Records regulations: The Federal rules restrict any use of the information to criminally investigate or prosecute any alcohol or drug abuse patient.[facility] HospitalIn the event this information is protected by the Federal Confidentiality of Alcohol and Drug Abuse Patient Records regulations: The Federal rules restrict any use of the information to criminally investigate or prosecute any alcohol or drug abuse patient.[facility] HospitalIn the event this information is protected by the Federal Confidentiality of Alcohol and Drug Abuse Patient Records regulations: The Federal rules restrict any use of the information to criminally investigate or prosecute any alcohol or drug abuse patient.[facility] HospitalIn the event this information is protected by the Federal Confidentiality of Alcohol and Drug Abuse Patient Records regulations: The Federal rules restrict any use of the information to criminally investigate or prosecute any alcohol or drug abuse patient.[facility] HospitalIn the event this information is protected by the Federal Confidentiality of Alcohol and Drug Abuse Patient Records regulations: The Federal rules restrict any use of the information to criminally investigate or prosecute any alcohol or drug abuse patient.[facility] HospitalIn the event this information is protected by the Federal Confidentiality of Alcohol and Drug Abuse Patient Records regulations: The Federal rules restrict any use of the information to criminally investigate or prosecute any alcohol or drug abuse patient.[facility] HospitalIn the event this information is protected by the Federal Confidentiality of Alcohol and Drug Abuse Patient Records regulations: The Federal rules restrict any use of the information to criminally investigate or prosecute any alcohol or drug abuse patient.[facility] HospitalIn the event this information is protected by the Federal Confidentiality of Alcohol and Drug Abuse Patient Records regulations: The Federal rules restrict any use of the information to criminally investigate or prosecute any alcohol or drug abuse patient.[facility] HospitalIn the event this information is protected by the Federal Confidentiality of Alcohol and Drug Abuse Patient Records regulations: The Federal rules restrict any use of the information to criminally investigate or prosecute any alcohol or drug abuse patient.[facility] HospitalIn the event this information is protected by the Federal Confidentiality of Alcohol and Drug Abuse Patient Records regulations: The Federal rules restrict any use of the information to criminally investigate or prosecute any alcohol or drug abuse patient.[facility] Care Teams (unrecognized sec tion and content) Clinical Fellow Relationship Specialty Start Date End Date Bennett Weir MD [address] [place] [address] PCP - General Internal Medicine 02/01/16 Clinical Fellow Relationship Specialty Start Date End Date Bennett Weir MD [address] [place] [address] PCP - General Internal Medicine 02/01/16 Clinical Fellow Relationship Specialty Start Date End Date Bennett Weir MD [address] [place] [address] PCP - General Internal Medicine 02/01/16 Clinical Fellow Relationship Specialty Start Date End Date Bennett Weir MD [address] [place] [address] PCP - General Internal Medicine 02/01/16 Clinical Fellow Relationship Specialty Start Date End Date Bennett Weir MD [address] [place] [address] PCP - General Internal Medicine 02/01/16 Clinical Fellow Relationship Specialty Start Date End Date Bennett Weir MD [address] [place] [address] PCP - General Internal Medicine 02/01/16 Clinical Fellow Relationship Specialty Start Date End Date Bennett Weir MD [address] [place] [address] PCP - General Internal Medicine 02/01/16 Clinical Fellow Relationship Specialty Start Date End Date Bennett Weir MD [address] [place] [address] PCP - General Internal Medicine 02/01/16 Clinical Fellow Relationship Specialty Start Date End Date Bennett Weir MD [address] [place] [address] PCP - General Internal Medicine 02/01/16 Clinical Fellow Relationship Specialty Start Date End Date Bennett Weir MD [address] [place] [address] PCP - General Internal Medicine 02/01/16 Clinical Fellow Relationship Specialty Start Date End Date Bennett Weir MD [address] [place] [address] PCP - General Internal Medicine 02/01/16 Clinical Fellow Relationship Specialty Start Date End Date Bennett Weir MD [address] [place] [address] PCP - General Internal Medicine 02/01/16 Clinical Fellow Relationship Specialty Start Date End Date Bennett Weir MD [address] [place] [address] PCP - General Internal Medicine 02/01/16 Clinical Fellow Relationship Specialty Start Date End Date Bennett Weir MD [address] [place] [address] PCP - General Internal Medicine 02/01/16 Brina Kapoor, RN [address] [place], [place] [id number] Psychiatric Clinical Nurse Specialist 05/16/22 Concepción Evans RN [address] [place] [address] Psychiatric Clinical Nurse Specialist 05/16/22 Clinical Fellow Relationship Specialty Start Date End Date Bennett Weir MD [address] [place] [address] PCP - General Internal Medicine 02/01/16 Concepción Evans, RN [address] [place] [address] Psychiatric Clinical Nurse Specialist 05/16/22 Clinical Fellow Relationship Specialty Start Date End Date Bennett Weir MD [address] [place] [address] PCP - General Internal Medicine 02/01/16 Concepción Evans, RN [address] [place] [address] Psychiatric Clinical Nurse Specialist 05/16/22 Clinical Fellow Relationship Specialty Start Date End Date Bennett Weir MD [address] [facility] [address] PCP - General Internal Medicine 02/01/16 Concepción Evans, RN [address] [place] [address] Psychiatric Clinical Nurse Specialist 05/16/22 Clinical Fellow Relationship Specialty Start Date End Date Bennett Weir MD [address] [place] [address] PCP - General Internal Medicine 02/01/16 Concepción Evans, RN [address] [place] [address] Psychiatric Clinical Nurse Specialist 05/16/22 Clinical Fellow Relationship Specialty Start Date End Date Bennett Weir MD [address] [place] [address] PCP - General Internal Medicine 02/01/16 Concepción Evans, RN [address] [place] [address] Psychiatric Clinical Nurse Specialist 05/16/22 Clinical Fellow Relationship Specialty Start Date End Date Bennett Weir MD [address] [place] [address] PCP - General Internal Medicine 02/01/16 Gay Salomon, RN [address] [place] [address] Psychiatric Clinical Nurse Specialist 09/19/22 Clinical Fellow Relationship Specialty Start Date End Date Bennett Weir MD [address] [place] [address] PCP - General Internal Medicine 02/01/16 Gay Salomon, RN [address] [place] [address] Psychiatric Clinical Nurse Specialist 09/19/22 Clinical Fellow Relationship Specialty Start Date End Date Bennett Weir MD [address] [place] [address] PCP - General Internal Medicine 02/01/16 Gay Salomon, RN [address] [place] [address] Psychiatric Clinical Nurse Specialist 09/19/22 Clinical Fellow Relationship Specialty Start Date End Date Bennett Weir MD [address] [place] [address] PCP - General Internal Medicine 02/01/16 Gay Salomon, RN [address] [place] [address] Psychiatric Clinical Nurse Specialist 09/19/22 Clinical Fellow Relationship Specialty Start Date End Date Bennett Weir MD [address] [place] [address] PCP - General Internal Medicine 02/01/16 Gay Salomon, RN [address] [place] [address] Psychiatric Clinical Nurse Specialist 09/19/22 Clinical Fellow Relationship Specialty Start Date End Date Bennett Weir MD [address] [place] [address] PCP - General Internal Medicine 02/01/16 Gay Salomon, RN [address] [place], [place] [phone] Psychiatric Clinical Nurse Specialist 09/19/22 Clinical Fellow Relationship Specialty Start Date End Date Bennett Weir MD [address] [place] [address] PCP - General Internal Medicine 02/01/16 Concepción Evans, RN [address] [place] [address] Psychiatric Clinical Nurse Specialist 05/16/2208/24 Gay Salomon, RN [address] [place], [place] [phone] Psychiatric Clinical Nurse Specialist 09/19/22 Clinical Fellow Relationship Specialty Start Date End Date Bennett Weir MD [address] [place] [address] PCP - General Internal Medicine 02/01/16 Gay Salomon RN [address] [place], [place] [id number] Psychiatric Clinical Nurse Specialist 09/19/22 Clinical Fellow Relationship Specialty Start Date End Date Bennett Weir MD [address] [place] [address] PCP - General Internal Medicine 02/01/16 Gay Salomon, RN [address] [place], [place] [phone] Psychiatric Clinical Nurse Specialist 09/19/22 Clinical Fellow Relationship Specialty Start Date End Date Bennett Weir MD [address] [place] [address] PCP - General Internal Medicine 02/01/16 Gay Salomon, RN [address] [place], [place] [phone] Psychiatric Clinical Nurse Specialist 09/19/22 Clinical Fellow Relationship Specialty Start Date End Date Bennett Weir MD [address] [place] [address] PCP - General Internal Medicine 02/01/16 Concepción Evans, RN [address] [facility] [place] [address] Psychiatric Clinical Nurse Specialist 05/16/2208/24 Clinical Fellow Relationship Specialty Start Date End Date Bennett Weir MD [address] [place] [address] PCP - General Internal Medicine 02/01/16 Concepción Evans RN [address] [facility] [place] [address] Psychiatric Clinical Nurse Specialist 05/16/2208/24 Clinical Fellow Relationship Specialty Start Date End Date Bennett Weir MD [address] [place] [address] PCP - General Internal Medicine 02/01/16 Gay Salomon RN [address] [place] [address] Psychiatric Clinical Nurse Specialist 09/19/22 Clinical Fellow Relationship Specialty Start Date End Date Bennett Weir MD [address] [place] [address] PCP - General Internal Medicine 02/01/16 Gay Salomon RN [address] [place] [address] Psychiatric Clinical Nurse Specialist 09/19/22 Clinical Fellow Relationship Specialty Start Date End Date Bennett Weir MD [address] [place] [address] PCP - General Internal Medicine 02/01/16 Gay Salomon RN [address] [place] [phone] Psychiatric Clinical Nurse Specialist 09/19/22 Clinical Fellow Relationship Specialty Start Date End Date Bennett Weir MD [address] [place], [place] [address]81 PCP - General Internal Medicine 02/01/16 Stacy Mcduffie, RONEY [address] [place] [phone] Psychiatric Clinical Nurse Specialist [facility] 06/19/23 Clinical Fellow Relationship Specialty Start Date End Date Bennett Weir MD [address] [place] [address] PCP - General Internal Medicine 02/01/16 Stacy Mcduffie RN [address] [place] [phone] Psychiatric Clinical Nurse Specialist Family Medicine 06/19/23 Reason for Visit (unrecogniz ed section and content) Reason Comments Pain muscle pain all over , ongoing since Jun Reason Comments swollen tongue Reason Comments 2 week follow-up Reason Comments Back Pain Reason Comments F/U 1 month Reason Comments Follow Up Reason Comments Orders Reason Comments Established Patient Reason Comments Nasal Congestion Reason Onset Date Comments Community Monitoring Outreach 05/15/2022 En rollment H@H Reason Comments Appointment Reason Onset Date Comments community monitoring outreach 07/17/2022 CD M follow up Reason Onset Date Comments community monitoring outreach 08/28/2022 CD M follow up Reason Onset Date Comments Community Monitoring Outreach 11/17/2022 CD M Follow Up Reason Comments Medicare Wellness Exam 4 month follow up Reason Comments New Pain Specialty Diagnoses / Procedures Referred By Contsheila t Referred To Contact Podiatry Diagnoses Left foot pain Procedures CONSULT TO PODIATRY OFFICE/OUTPATIENT NEW HIGH MDM 60-74 MINUTES Older, PAT Morrison[employer] [address] [place] [address] Referral ID Status Reason Start Date Expiration Date V isits Requested Visits Authorized [id number] Closed PCP Requested Referral 11/21/2022 11/21/2023 1 1 Reason Comments Derm Problem Pt reported (LT) arm skin tear onset 12/30/2022, denied pain. Reason Onset Date Comments Community Monitoring Outreach 01/05/2023 CD M Follow Up Reason Onset Date Comments Population Health Navigation Outreach 01/20/2023 H@H Reason Comments Patient Update Reason Onset Date Comments [facility] Navigation Outreach 01/20/2023 H@H [facility] CALL IN Reason Comments Diarrhea Reason Onset Date Comments Community Monitoring Outreach 03/16/2023 CD M Follow Up Reason Comments Radiology US Specialty Diagnoses / Procedures Referred By Contac t Referred To Contact US IMAGING Diagnoses Abnormal thyroid ultrasound Procedures US THYROID/PARATHYROID ULTRASOUND OF THYROID Della Farooq MD [address] [place] [address] [place] [address] Referral ID Status Reason Start Date Expiration Date V isits Requested Visits Authorized [id number] Closed Auto-Generate d Referral 05/16/2021 06/15/2022 1 1 Reason Comments Follow Up c/o right knee pain x 2 weeks and swelling at times pain scale 5/10 Reason Onset Date Comments Community Monitoring Outreach 05/01/2023 CD M Follow Up Reason Onset Date Comments community monitoring outreach 07/10/2023 CD M outreach telephonic INFORMATION SOURCE (unrecogn ized section and content) FOR RECORDS PERTAINING TO PATIENTS WHO ARE OR HAVE BEEN ENROLLED IN A CHEMICAL DEPENDENCY/SUBSTANCEABUSE PROGRAM, SOME INFORMATION MAY BE OMITTED. This clinical summary was aggregated from multiple sources. Caution should be exercised in using it in the provision of clinical care. This summary normalizes information from multiple sources, and as a consequence, information in this document may materially change the coding, format and clinical context of patient data. In addition, data may be omitted in some cases. CLINICAL DECISIONS SHOULD BE BASED ON THE PRIMARY CLINICAL RECORDS. [employer] provides no warranty or guarantee of the accuracy or completeness of information in this document.
== END 2023-07-20 15:26 | disposition home or self-care (01) ==
PROVIDERS: Physician Assistant; Emergency Provider Emergency Medicine; PCP Internal Medicine; Visit Provider Emergency Medicine
DX: R42 Dizziness and giddiness (principal); K21.9 Gastro-esophageal reflux disease without esophagitis; I10 Essential (primary) hypertension; E78.5 Hyperlipidemia, unspecified
CPT/HCPCS: 71045; 80048; 81001; 84484; 85025; 93005; 96360; 99284; J7030

== ENCOUNTER 2023-08-14 12:50 | Emergency (ER) | payer MEDICARE, OTHER, SELFPAY ==
[2023-08-14 12:51] VITALS: BP 177/68; PULSE 84; RESP 18; TEMP 36.7; O2SAT 100; BMI 28.5
--- NOTE | 2023-08-14 13:24 | EX.ED.DYSGE1 ---
HPI <REBEL Rodney - Last Filed: 08/14/23 16:37> History of Present Illness Chief Complaint: Nausea/Vomiting Narrative Narrative: Patient presenting today due to concerns for esophageal foreign body. She reports that she was eating shredded chicken and sweet potatoes about an hour and 45 minutes ago when she felt a piece of it get stuck in her esophagus, she was able to bring up pieces of the food and she no longer had any pain, however, since then she reports that she has been getting an increased amount of mucus in the back of her throat that she is unable to swallow, she has vomited small amounts of mucus multiple times since then. She did try to drink ice tea and lemonade but it was not able to go down. 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 She has never had to have a procedure to remove food bolus from her esophagus. PFSH <REBEL Rodney - Last Filed: 08/14/23 16:37> [facility] Medical History Anxiety Carotid stenosis Fibromyalgia GERD (gastroesophageal reflux disease) Hyperlipidemia Hypertension Home Medications ondansetron 4 mg disintegrating tablet 4 mg PO Q8H PRN nausea and vomiting #10 tabs 10/07/21 [Rx Last Taken Unknown] prednisone 10 mg tablet 10 mg PO DAILY 10/07/21 [History Last Taken Unknown] esomeprazole magnesium 20 mg capsule,delayed release (Nexium) 20 mg PO DAILY #20 caps 08/04/22 [Rx Last Taken Unknown] pantoprazole 40 mg tablet,delayed release (Protonix) 40 mg PO DAILY #30 tabs 08/14/23 [Rx Last Taken Unknown] Allergy/AdvReac Type Severity Reaction Status Date / Time iodine Allergy Shortness Verified 08/04/22 16:52 of breath Htoqzhk-LDE-EeD Reductase Allergy Rash Verified 08/04/22 16:52 Inhibitor [Qdxgmlb-Cnf-Swe Reductase Inhibitor] fenofibrate [From [employer]] AdvReac Other Verified 08/04/22 16:52 Family History Mother Heart disease Father Heart disease Surgical History S/P partial resection of colon Social History household members: none housing: house Smoking Status: Never smoker alcohol intake: never substance use type: does not use ROS <REBEL Rodney - Last Filed: 08/14/23 16:37> ROS ED Constitutional Constitutional ED: Denies chills or fever(s) Cardiovascular Cardiovascular: Denies chest pain Respiratory/Chest Respiratory/Chest: Denies cough or dyspnea Gastrointestinal Gastrointestinal: Reports nausea and vomiting; Denies abdominal pain Genitourinary Genitourinary ED: Denies dysuria, hematuria or urinary urgency Musculoskeletal Musculoskeletal: Denies arthralgias or myalgias Integumentary Denies rash Neurologic Neurologic: Denies weakness EXAM <REBEL Rodney - Last Filed: 08/14/23 16:37> Physical Exam Const Vital Signs: 08/14/23 12:51 08/14/23 14:08 Temperature 98.1 F 97 F L Temperature Source Temporal Pulse Rate 84 81 Respiratory Rate 18 16 Blood Pressure 177/68 H 167/81 H Blood Pressure Mean 104 109 Pulse Ox 100 99 Oxygen Delivery Method Room Air Positive well nourished, well developed and no apparent distress General Appearance ED: well developed HEENT Reports normocephalic and head/scalp atraumatic Mouth ED: Yes moist mucous membranes normal Eyes PERRL and EOMs intact bilaterally Neck full ROM and supple Chest Wall inspection of chest normal Resp normal respiratory effort and clear to auscultation bilaterally Cardio regular rate and regular rhythm GI soft to palpation, non-tender, non-distended and no masses Back/Spine normal ROM and normal to inspection Extremity normal to inspection and full ROM Neuro oriented x3, CN's II-XII intact bilaterally, moves all extremities, no focal motor deficits and no sensory deficits noted Sensorium / Orientation: awake and alert Psych mental status grossly normal and thought process normal Skin no rashes or lesions noted and no wounds <Dr. Rajan Hubbard MD - Last Filed: 08/14/23 13:45> Physical Exam Const Vital Signs: 08/14/23 12:51 08/14/23 14:08 Temperature 98.1 F 97 F L Temperature Source Temporal Pulse Rate 84 81 Respiratory Rate 18 16 Blood Pressure 177/68 H 167/81 H Blood Pressure Mean 104 109 Pulse Ox 100 99 Oxygen Delivery Method Room Air [facility] <REBEL Rodney - Last Filed: 08/14/23 16:37> [facility] Narrative Medical decision making narrative: Patient presenting due to concerns for esophageal foreign body. When I initially examined her she was well-appearing but reported that it felt like she was not able to swallow her phlegm. She appeared to be tolerating her secretions. By the time the attending ED physician evaluated her, her symptoms did resolve, she is drinking water without any difficulty. I will give her a referral for either general surgery or GI to do an endoscopy for further evaluation/possible dilation. She will be discharged in stable condition and is comfortable with plan. I have personally performed a face to face assessment of the patient and have reviewed the CHUCK Note. I performed a substantive portion of the visit including all aspects of the following. My metcalf findings include: History is 83-year-old female was eating shredded chicken for lunch and feel like she got stuck in her esophagus. She is thrown up several times and think it is now relieved and resolved. She has had this happen before. She has not had upper endoscopy for years. They talked about dilating her in the past. Currently she is symptom-free. Exam is [well-appearing 83-year-old female. Vital signs stable afebrile. Pulse ox 100% on room air. No hypoxia. No respiratory distress. H EENT exam unremarkable. Able to handle her own secretions. I gave her a glass of water she was able to drink it without any difficulty. No trouble swallowing. Neck nontender. Lungs clear. Heart regular rhythm no murmur. Rate about 80. Abdomen soft, nontender, nondistended normal bowel sounds no peritoneal signs. Moving all 4 extremities. Nontender no edema. Patient is awake and alert with no focal motor deficits.] Medical Decision Making [83-year-old female appeared to have an esophageal food bolus that is now resolved. She is comfortable being discharged home. She will be started on Protonix. Outpatient follow-up with either general surgery or GI for upper endoscopy for further evaluation.] Other additions or changes: [None] <Dr. Rajan Hubbard MD - Last Filed: 08/14/23 13:45> [facility] Narrative Medical decision making narrative: I have personally performed a face to face assessment of the patient and have reviewed the CHUCK Note. I performed a substantive portion of the visit including all aspects of the following. My metcalf findings include: History is 83-year-old female was eating shredded chicken for lunch and feel like she got stuck in her esophagus. She is thrown up several times and think it is now relieved and resolved. She has had this happen before. She has not had upper endoscopy for years. They talked about dilating her in the past. Currently she is symptom-free. Exam is [well-appearing 83-year-old female. Vital signs stable afebrile. Pulse ox 100% on room air. No hypoxia. No respiratory distress. H EENT exam unremarkable. Able to handle her own secretions. I gave her a glass of water she was able to drink it without any difficulty. No trouble swallowing. Neck nontender. Lungs clear. Heart regular rhythm no murmur. Rate about 80. Abdomen soft, nontender, nondistended normal bowel sounds no peritoneal signs. Moving all 4 extremities. Nontender no edema. Patient is awake and alert with no focal motor deficits.] Medical Decision Making [83-year-old female appeared to have an esophageal food bolus that is now resolved. She is comfortable being discharged home. She will be started on Protonix. Outpatient follow-up with either general surgery or GI for upper endoscopy for further evaluation.] Other additions or changes: [None] Discharge Plan Triage Chief Complaint: Nausea/Vomiting ED Midlevel Provider: Anni Sousa ED Provider: Rajan Hubbard Dx/Rx/DC Orders Clinical Impression: Impacted foreign body in esophagus Instructions: ED Esophageal Foreign Body, Resolved Prescriptions: New pantoprazole [Protonix] 40 mg tablet,delayed release (DR/EC) 40 mg PO DAILY Qty: 30 0RF No Action prednisone 10 mg Tablet 10 mg PO DAILY ondansetron 4 mg tablet,disintegrating 4 mg PO Q8H PRN (Reason: nausea and vomiting) Qty: 10 0RF esomeprazole magnesium [Nexium] 20 mg capsule,delayed release(DR/EC) 20 mg PO DAILY Qty: 20 0RF Primary Care Provider: Bennett Weir Referrals: Jordan Barrow DO [Med Staff - Active Staff] - 1 Week Marbella Tristan MD [Med Staff - Active Staff] - 1 Week Bennett Weir MD [Primary Care Provider] - Activity Restrictions/Additional Instructions: Please follow-up with either general surgery or GI as your esophagus may need to be dilated again. Return for any worsening of your symptoms. Disposition Disposition: Home, Self Care Discharge Date/Time: 08/14/23 14:10
[2023-08-14 14:08] VITALS: BP 167/81; PULSE 81; RESP 16; TEMP 36.1; O2SAT 99
== END 2023-08-14 14:10 | disposition home or self-care (01) ==
PROVIDERS: Emergency Provider Emergency Medicine; PCP Internal Medicine; Visit Provider Emergency Medicine
DX: R11.2 Nausea with vomiting, unspecified (principal); T18.128A Food in esophagus causing other injury, initial encounter; W44.F3XA Food entering into or through a natural orifice, initial encounter; I10 Essential (primary) hypertension; E78.5 Hyperlipidemia, unspecified; K21.9 Gastro-esophageal reflux disease without esophagitis; Z79.899 Other long term (current) drug therapy
CPT/HCPCS: 99282

== ENCOUNTER 2023-10-27 19:27 | Observation (INO) | payer MEDICARE, OTHER, SELFPAY ==
[2023-10-27 19:28] VITALS: BP 156/58; PULSE 110; RESP 16; TEMP 36.4; O2SAT 99
[2023-10-27 19:40] VITALS: BMI 28.9
--- NOTE | 2023-10-27 20:16 | CT_ITS ---
EXAM: CT HEAD WITHOUT INTRAVENOUS CONTRAST CLINICAL INDICATION: tia TECHNIQUE: Multiple axial images were obtained of the head without intravenous contrast. This CT exam was performed using one or more of the following dose reduction techniques: automated exposure control, adjustment of the mA and/or kV according to patient size, and/or use of iterative reconstruction technique. COMPARISON: CT head, 11/21/2022 FINDINGS: BRAIN AND EXTRA-AXIAL SPACES: There is non-specific periventricular hypoattenuation which is most commonly related to chronic microvascular ischemic disease in a patient of this age. There is no mass, mass-effect, or shift of the midline structures. No evidence of acute infarct or acute intracranial hemorrhage. There is no evidence of pathologic extra-axial fluid. There is no hydrocephalus. Patent basal cisterns. BONES/JOINTS: No significant abnormality. No discrete lytic or blastic abnormalities. SOFT TISSUES: Right suboccipital intramuscular lipoma. VASCULATURE: Arteriosclerosis. SINUSES: No significant findings. MASTOID AIR CELLS: No significant effusion. ORBITS: Bilateral ocular lens extraction presumptively for the treatment of cataracts. Otherwise, no acute orbital pathology. CT/Brain/Head without Contrast IMPRESSION: No acute intracranial pathology. Chronic microvascular ischemic changes. Electronically Signed: Magdi Hernandez DO at 20:55 EDT ,
--- NOTE | 2023-10-27 20:16 | EKG12_ITS ---
Test Reason : CP Blood Pressure : / mmHG Vent. Rate : 086 BPM Atrial Rate : 086 BPM P-R Int : 168 ms QRS Dur : 080 ms QT Int : 380 ms P-R-T Axes : 006 030 058 degrees QTc Int : 454 ms Normal sinus rhythm with sinus arrhythmia Normal ECG Confirmed by Felipe Moore ([id number]), sports editor OLIVE VIEYRA ([id number]) on 10/28/2023 2:55:13 PM Referred By: Confirmed By:Felipe Moore
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
[2023-10-27 20:28] VITALS: BP 168/65; PULSE 90; RESP 18; O2SAT 97
[2023-10-27 20:37] LABS: Absolute Neutrophil Count 3.8 X10^3/uL (2.0-7.7); Basophil# 0.05 X10^3/uL; Basophil% 0.6 % (0-1); Eosinophil# 0.19 X10^3/uL; Eosinophils% 2.3 % (0-5); Hematocrit 39.5 % (37-47); Hemoglobin 13.6 g/dL (12.0-15.0); Lymphocyte % 43.1 % (19-41); Mean Corp Hgb Conc 34.4 g/dL (32-36); Mean Corpuscular Volume 98.8 fL (81-99); Mean Platelet Vol. 10.1 fl (6.2-12.0); Monocyte# 0.67 X10^3/uL; NRBC Flagged by Analyzer 0 % (0-5); Neutrophil # 3.75 X10^3/uL (2.7-7.7); Neutrophil % 44.9 % (47-70); Platelet Count 228 K/mm3 (150-450); RBC Distribution Width CV 14.6 % (11.6-14.6); RBC Distribution Width SD 47.9 fl (35.1-43.9); White Blood Count 8.4 K/mm3 (4.4-11.0)
--- NOTE | 2023-10-27 20:40 | RAD_ITS ---
EXAM: XR CHEST, 1 VIEW CLINICAL INDICATION: chest pain TECHNIQUE: Frontal view of the chest. COMPARISON: No relevant prior studies available. FINDINGS: LUNGS AND PLEURAL SPACES: No significant abnormality. No consolidation or edema. No pneumothorax. No effusion. HEART: No significant abnormality. Cardiac silhouette not enlarged. MEDIASTINUM: Central airways and mediastinal contour are unremarkable. BONES/JOINTS: No significant abnormality. No acute fracture. SOFT TISSUES: No significant abnormality. VASCULATURE: Vascular calcifications. RAD/Chest 1 View (Portable) IMPRESSION: No acute findings in the chest. Electronically Signed: Magdi Hernandez DO at 20:53 EDT ,
[2023-10-27 20:50] LABS: Anion Gap 4 (5-15); BUN 20 mg/dL (7-18); BUN/Creat Ratio 28.3 RATIO (10-20); Calcium,Total 9.5 mg/dL (8.5-10.1); Chloride 110 mmol/L (98-107); Creatinine, Serum 0.71 mg/dL (0.55-1.02); EST Glomerular Filtration Rate 84 mL/min (>60); Est Glom Filt Rate - Afr Amer 101 mL/min (>60); Estimated Creatinine Clearance 49.57 ml/min; Glucose 137 mg/dL (74-106); Potassium 4.2 mmol/L (3.5-5.1); Sodium Level 139 mmol/L (136-145); Troponin-I HS (w/2H Reflex) 6 pg/mL (3.0-54.0)
[2023-10-27 21:00] VITALS: BP 159/65; PULSE 94; RESP 22; O2SAT 97
[2023-10-27 22:00] VITALS: BP 145/69; PULSE 85; RESP 15; O2SAT 95
[2023-10-27 22:30] LABS: Reflex Troponin-HS? (from REC) Y
--- NOTE | 2023-10-27 22:46 | HP.PCM.HOS_ITS ---
HPI - General General Date of Admission: 10/27/23 Date of Service: 10/27/23 Chief Complaint: Headache and Visual Disturbance while Driving. HPI Narrative DINAH MORROW, is a 83 F with a past medical history of essential hypertension, hyperlipidemia; with intolerance to statins on ezetimibe, overweight; with BMI of 28.9 this admission, history of carotid stenosis, generalized anxiety, fibromyalgia, history of partial resection of colon, GERD and osteoarthritis who presents to [facility] ER complaining of headache and visual disturbance while driving. Ms. Morrow reports her symptoms began approximately 1 hour prior to arrival while she was driving her car and then felt the abrupt-onset of a lot of pressure building up in her head followed by a transient loss of vision in both eyes and subsequent lines in her vision when her eyes were closed. She was able to bring the car to a stop and she denies loss of consciousness. During the episode of the headache and visual disturbance she also admits to vague chest pressure and states she was afraid because she never had similar episodes in the past. She went on to state that her symptoms lasted for only a few minutes and now she has no residual neurologic deficits or chest discomfort. There is no report of fever, chills, nausea, vomiting or diaphoresis. In the ER she was noted to have a CTA of the head and neck that was negative for acute pathologic changes with the ER provider having a high index of clinical suspicion for TIA; accompanied by headache and amaurosis fugax in the setting of known carotid stenosis and she was then admitted to the PCU under observation status for ongoing care for stay that is expected to be less than 2 midnights. [facility] Medical History Carotid stenosis Anxiety GERD (gastroesophageal reflux disease) Fibromyalgia Hyperlipidemia Hypertension Home Medications ?Medication ?Instructions ?Recorded ?Last Taken ?Type ezetimibe 10 mg tablet 10 mg PO DAILY 10/27/23 Unknown History Allergy/AdvReac Type Severity Reaction Status Date / Time iodine Allergy Shortness Verified 10/28/23 00:31 of breath Zxmznvc-KAT-DfG Reductase Allergy Rash Verified 10/28/23 00:31 Inhibitor (Wurjxin-Gcs-Das Reductase Inhibitor) fenofibrate (From Tricor) AdvReac Other Verified 10/27/23 19:31 Family History Mother Heart disease Father Heart disease Surgical History S/P partial resection of colon Social History household members: none housing: house Smoking Status: Never smoker alcohol intake: never substance use type: does not use ROS ROS Narrative Review of systems: General: Patient denies fever or chills. HENT: Patient admits to headache but she denies stuffy nose, denies sore throat EYES: Patient admits to transient loss of vision in both eyes followed by lines in her vision even with her eyes closed lasting a few minutes as per HPI. Resp: Denies cough, denies shortness of breath Cardiac: Patient admits to vague chest discomfort and palpitations but she denies heart racing. GI: Denies abdominal pain, denies changes in bowel, denies nausea or vomiting. : Denies changes in urination Extremity: Denies swelling Musculoskeletal: Patient denies arthralgias or myalgias. Neuro: Patient admits to transient headache that was global and pressure-like along with transient loss of vision in both eyes but she denies paresthesias or other focal neurologic deficits. Heme: Denies any bleeding or bruising Skin: Denies rashes Psychiatric: Patient admits to heightened anxiety due to headache, chest pain and visual loss but she denies suicidal or homicidal ideation. Endocrine: No polyuria, polydipsia or polyphagia. The rest of the 14 point ROS was negative except for positives in HPI. Vital Signs Vital Signs Vital Signs: 10/27/23 19:28 10/27/23 20:28 10/27/23 20:33 Temperature 97.6 F L Temperature Source Temporal Pulse Rate 110 H 90 Respiratory Rate 16 18 Blood Pressure 156/58 H 168/65 H Blood Pressure Mean 90 99 Pulse Ox 99 97 Oxygen Delivery Method Room Air Room Air Room Air 10/27/23 21:00 10/27/23 22:00 Temperature Temperature Source Pulse Rate 94 85 Respiratory Rate 22 H 15 Blood Pressure 159/65 H 145/69 H Blood Pressure Mean 96 94 Pulse Ox 97 95 Oxygen Delivery Method Room Air Room Air Weight Weight: 163 lb 5.8 oz Body Mass Index (BMI) 28.9 Physical Exam Const alert, oriented x3, no apparent distress, average body habitus and healthy appearing General Appearance: cooperative HEENT normocephalic, head/scalp atraumatic, hearing grossly normal bilaterally and moist oral mucous membranes Eyes PERRL, EOMs intact bilaterally and conjunctivae normal Neck no lymphadenopathy and supple Resp normal respiratory effort, no retractions, no use of accessory muscles and clear to auscultation bilaterally Cardio regular rate and regular rhythm GI normal to inspection, nondistended, normoactive bowel sounds, soft to palpation, non-tender and non-distended Extremity normal to inspection, full ROM and no clubbing, cyanosis or edema Skin Skin Narrative: Patient has no evidence of jaundice or rash. Neuro oriented x3, CN's II-XII intact bilaterally, moves all extremities and no focal motor deficits Sensorium / Orientation: awake, alert, oriented to person, oriented to place and oriented to time Speech: speech normal Motor Exam: strength 5/5 throughout Psych Mood & Affect: anxious Results Medical Records Data Attestation: I reviewed the patient's medical records Lab / Micro Data Attestation: I reviewed the patient's lab results. 10/27/23 19:55 10/27/23 19:55 Labs: Laboratory Results - last 24 hr 10/27/23 19:55: WBC 8.4, RBC 4.00 L, Hgb 13.6, Hct 39.5, MCV 98.8, MCH 34.0 H, MCHC 34.4, RDW Std Deviation 47.9 H, RDW Coeff of Alex 14.6, Plt Count 228, MPV 10.1, Immature Gran % (Auto) 1.100 H, Neut % (Auto) 44.9 L, Lymph % (Auto) 43.1 H, [place] % (Auto) 8.0, Eos % (Auto) 2.3, Baso % (Auto) 0.6, Absolute Neuts (auto) 3.8, Absolute Lymphs (auto) 3.60, Nucleated RBC % 0, Sodium 139, Potassium 4.2, Chloride 110 H, Carbon Dioxide 25.0, Anion Gap 4 L, BUN 20 H, Creatinine 0.71, Estim Creat Clear Calc 49.57, Est GFR (MDRD) Af Amer 101, Est GFR (MDRD) Non-Af 84, BUN/Creatinine Ratio 28.3 H, Glucose 137 H, Calcium 9.5, Troponin I High Sens 6 Imaging Radiology Impression Brain CT 10/27/23 20:16 IMPRESSION: No acute intracranial pathology. Chronic microvascular ischemic changes. Electronically Signed: Magdi Hernandez DO at 20:55 EDT , Chest X-Ray 10/27/23 20:40 IMPRESSION: No acute findings in the chest. Electronically Signed: Magdi Hernandez DO at 20:53 EDT , Assessment & Plan Assessment/Plan (1) TIA (transient ischemic attack): QUALIFIERS: Transient cerebral ischemia type: unspecified Q ualified Code(s): G45.9 - Transient cerebral ischemic attack, unspecified (2) Episodic lightheadedness: (3) Headache: QUALIFIERS: Headache chronicity pattern: acute headache Headache type: unspecified Intractability: not intractable Qualified Code(s): R51.9 - Headache, unspecified (4) History of carotid stenosis: (5) HLD (hyperlipidemia): QUALIFIERS: Hyperlipidemia type: unspecified Qualified Code(s): E 78.5 - Hyperlipidemia, unspecified (6) HTN (hypertension): QUALIFIERS: Hypertension type: essential hypertension Qualified Code(s): I10 - Essential (primary) hypertension PLAN: Plan 1. Suspect TIA; accompanied by headache, lightheadedness and amaurosis fugax in the setting of known carotid stenosis - Admit to PCU under observation status. Check MRI of the brain to rule out CVA. Check carotid Dopplers to evaluate for stenosis that may not have been evident on CT. Check echocardiogram to evaluate LVEF. Continue enteric-coated aspirin plus continue ezetimibe. Avoid statin with listed allergy. Finally, we will check hemoglobin A1c and lipid profile to enhance her metabolic evaluation. 2. Essential hypertension - Hold scheduled antihypertensives to allow for 'permissive hypertension' until CVA definitively ruled out on MRI 3. Hyperlipidemia; with intolerance to statins on ezetimibe - Resume ezetimibe and check lipid profile as outlined above. 4. Overweight; with BMI of 28.9 this admission - Weight loss will be recommended. Check TSH. 5. Generalized anxiety - Acutely worsened by TIA symptoms outlined #1. Give low-dose Xanax as needed for breakthrough symptoms. 6. Fibromyalgia - Stable. 7. History of partial resection of colon - Noted. 8. GERD - Stable. 9. Osteoarthritis - Give Tylenol as needed. 10. DVT prophylaxis - Lovenox 40 mg subcu daily. Total time: Approximately 70 minutes. Charges/Coding Visit Charges OBSV E&M: 80901 Observ/hosp same date L2
[2023-10-27 22:53] LABS: Troponin-I HS 12 pg/mL (3.0-54.0)
[2023-10-27 23:00] VITALS: BP 146/79; PULSE 88; RESP 18; TEMP 36.6; O2SAT 97
--- NOTE | 2023-10-27 23:11 | ECHOD_ITS ---
Reason For Study: TIA/CVA Procedure This was a 2D Doppler, Color Flow transthoracic echocardiogram. Exam performed portable in patient room. Left Ventricle Normal LV size. Left ventricular systolic function is normal. The left ventricular ejection fraction is 70 %. Stage 1 diastolic dysfunction. No regional wall motion abnormalities noted. Right Ventricle Normal RV size. Normal systolic function. Atria Normal left atrium. Normal right atrium. Mitral Valve There is mild mitral annular calcification. Tricuspid Valve Normal tricuspid valve. Aortic Valve Trisinus/trileaflet aortic valve. Mild focal aortic valve calcification. Great Vessels Normal aortic root. Pericardium/Pleural No pericardial effusion. MMode/2D Measurements & Calculations LVIDd: 3.4 cm IVSd: 1.1 cm LVOT diam: 1.9 cm LVIDs: 1.7 cm LVPWd: 0.92 cm LVOT area: 2.9 cm2 RVDd: 2.8 cm FS: 49.3 % Ao root diam: 3.3 cm LAV(MOD-bp): 35.3 ml LVAd ap4: 19.1 cm2 LAV(MOD-bp) Indexed: 20.1 ml/m2 LVLd ap4: 6.9 cm LAV(MOD-sp2): 42.1 ml EDV(MOD-sp4): 44.4 ml LAV(MOD-sp4): 29.5 ml EDV(sp4-el): 44.7 ml LVAs ap4: 9.1 cm2 LVLs ap4: 5.6 cm ESV(MOD-sp4): 12.6 ml ESV(sp4-el): 12.4 ml EF(MOD-sp4): 71.6 % EF(sp4-el): 72.2 % SV(MOD-sp4): 31.8 ml SV(MOD-sp2): 24.1 ml LVAd ap2: 15.9 cm2 LVLd ap2: 6.2 cm EDV(MOD-sp2): 34.0 ml EDV(sp2-el): 34.6 ml LVAs ap2: 7.7 cm2 LVLs ap2: 5.2 cm ESV(MOD-sp2): 9.9 ml ESV(sp2-el): 9.8 ml EF(MOD-sp2): 70.9 % SV(sp4-el): 32.3 ml LA A4 area: 13.8 cm2 LA dimension(2D): 3.4 cm TAPSE: 1.9 cm RA A4 area: 9.6 cm2 Time Measurements MV dec time: 0.19 sec Doppler Measurements & Calculations MV E max yousuf: 71.7 cm/sec Lat Peak E' Yousuf: 8.1 cm/sec Med Peak E' Yousuf: 6.2 cm/sec MV A max yousuf: 128.4 cm/sec E/E' lat: 8.8 E/E' med: 11.6 MV E/A: 0.56 Ao V2 max: 88.2 cm/sec LV V1 max: 130.1 cm/sec SV(LVOT): 76.6 ml Ao max P.8 mmHg LV V1 max P.8 mmHg Ao V2 mean: 58.5 cm/sec LV V1 mean P.4 mmHg Ao mean P.8 mmHg LV V1 mean: 100.9 cm/sec Ao V2 VTI: 15.2 cm LV V1 VTI: 26.1 cm AV (velocity ratio): 1.7 CHUY(I,D): 5.0 cm2 CHUY(V,D): 4.3 cm2 PA V2 max: 103.8 cm/sec PA max PG (full): 0.79 mmHg ECHO/Echo Complete Interpretation Summary Normal LV size. Left ventricular systolic function is normal. Mild focal aortic valve calcification. The left ventricular ejection fraction is 70 %. Stage 1 diastolic dysfunction. Ordering Physician: Narendra Monte Referring Physician: Bennett Weir M.D. Performed By: Taryn Nieto RDCS and Student
--- NOTE | 2023-10-27 23:11 | CDU_ITS ---
Reason For Study: TIA Rt. Velocities/BP Lt. Velocities/BP Prox CCA 88.1/14.5 cm/sec. Prox CCA 128.4/13.3 cm/sec. Mid CCA 115.8/22.5 cm/sec. Mid CCA 102.8/15.2 cm/sec. Dist CCA 75.3/16.3 cm/sec. Dist CCA 95.5/17 cm/sec. Prox ICA 75.3/11.4 cm/sec. Prox ICA 93.7/17.6 cm/sec. Mid ICA 86.3/22.5 cm/sec. Mid ICA 99.8/27.4 cm/sec. Dist ICA 83.9/22.5 cm/sec. Dist ICA 113.3/29.8 cm/sec. Rt. ICA/CCA = 0.74. Lt. ICA/CCA = 1.10. Prox ECA 99.8/5.3 cm/sec. Prox ECA 121.1/4.2 cm/sec. Rt. Vert. 43.7/10.7 cm/sec. Lt. Vert. 31.7/5.5 cm/sec. Right Extracranial There is homogeneous, smooth atherosclerotic plaque noted in the right common carotid artery. There is homogeneous, smooth atherosclerotic plaque noted in the right internal carotid artery. There is intimal thickening but no significant atherosclerotic plaque noted in the right external carotid artery. Antegrade flow is noted in the right vertebral artery. Left Extracranial There is heterogeneous, irregular atherosclerotic plaque noted in the left common carotid artery. There is heterogeneous, irregular atherosclerotic plaque noted in the left internal carotid artery. There is intimal thickening but no significant atherosclerotic plaque noted in the left external carotid artery. Antegrade flow is noted in the left vertebral artery. Procedure Carotid Duplex [id number]. This is a Carotid Duplex examination using B-mode, color flow and specral Doppler. Exam performed portable in patient room. VL/Carotid Duplex Ultrasound Interpretation Summary Mild (<50%) stenosis right extracranial internal carotid. Mild (<50%) stenosis left extracranial internal carotid. Patent and antegrade vertebrals bilaterally. Ordering Physician: Narendra Monte Referring Physician: Bennett Weir M.D. Performed By: Constance Shen RVT
[2023-10-27 23:46] LABS: Thyroid Stim Hormone (TSH) 1.18 uIU/mL (0.358-3.74)
[2023-10-28] VITALS (12 sets, daily range): BP systolic 112–165; BP diastolic 51–74; PULSE 75–95; RESP 16–17; TEMP 36.1–36.8; O2SAT 95–100; BMI 28.3
[2023-10-28 00:15] LABS: Hemoglobin A1c 5.3 % (3.8-5.6)
[2023-10-28] MEDS: 0.9% Normal Saline (1000mL) 1,000 ML 50 ML IV (00:53)
[2023-10-28] MEDS: 0.9% Saline Lock 10 ML Syringe IV (00:55)
--- NOTE | 2023-10-28 08:30 | NURSING ---
[facility]SS late due to ultrasound being at bedside at 0800.
[2023-10-28 08:50] LABS: Cholesterol 204 mg/dL (200); High Density Lipoprotein 53 mg/dL; Triglycerides 137 mg/dL; Very Low Density Lipoprotein 27 mg/dL (5-40)
--- NOTE | 2023-10-28 09:00 | MRI_ITS ---
STUDY: MRI BRAIN WITHOUT CONTRAST REASON FOR EXAM: Female, 83 years old. TIA; with headache and vision loss in both eyes. TECHNIQUE: Standardized multiplanar fat and water weighted pulse sequences were obtained. COMPARISON: Head CT dated October 27, 2023 FINDINGS: Normal size of the ventricles and extra-axial spaces for the patient''s age. There are a limited number of small white matter hyperintensities, distributed throughout the deep white matter tracts of the cerebral hemispheres, consistent with mild chronic white matter ischemic changes. There is no evidence for recent intracranial ischemia or other cause of cytotoxic edema on diffusion weighted imaging (DWI). Normal T2* images of the brain without demonstrated susceptibility artifact. There is no demonstrated hemosiderin stain. Small scalp lipoma is present at the right skull base/upper neck junction. No hydrocephalus or midline shift is present. Normal bilateral basal ganglia. Normal thalami. There is no extra-axial fluid accumulation. Normal flow voids within the major intracranial circulation suggesting patency by spin echo criteria. Normal sella turcica, pituitary gland, infundibular stalk, optic chiasm and hypothalamus. Normal tectal plate and pineal gland. Normal midbrain, junior and medulla. Normal cerebellum. Normal basal cisterns. Normal bilateral temporal bones. Normal bilateral internal auditory canals. No demonstrated orbital abnormality, within the constraints of a routine brain study. Normal visualized paranasal sinuses. Normal calvarium and skull base. Normal visualized soft tissue structures. Normal visualized upper cervical spine. MRI/Brain without Contrast IMPRESSION: 1. Chronic ischemic changes of the brain, as described above. Electronically Signed: Mark Woodson MD at 12:59 EDT ,
--- NOTE | 2023-10-28 09:05 | CASEMGMT ---
SW completed a PHQ9 with patient as she may have had a Stroke or TIA. Patient scored a 0 and declined any need for resources. Buffy STONE
[2023-10-28] MEDS: Ezetimibe 10 MG Tablet PO (10:05)
[2023-10-28] MEDS: Aspirin 81 MG TAB.CHEW PO (10:05)
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
[2023-10-28] MEDS: LORazepam 2 MG/ML Syringe 1 MG IV (11:37)
[2023-10-28 14:22] LABS: Erythrocyte Sedimentation Rate 6 mm/hr (0-30)
[2023-10-28 14:26] LABS: CRP < 2.90 mg/L (0.0-3.0)
--- NOTE | 2023-10-28 15:22 | CASEMGMT ---
Met with patient to complete FARRIS form. FARRIS form explained to patient who voiced understanding and signed form. Original form placed in pt?s chart and copy provided to patient. Martita Crook, Discharge Planning Asst
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
--- NOTE | 2023-10-28 16:10 | CASEMGMT ---
Order for pt DC placed. RONEY CM to pt room at this time. Dr. Newton at bedside and educates the pt. Pt is to f/u with her PCP and Neuro after DC for her complex migraines. Pt states understanding and agrees with this plan. Moving forward, the pt states that she feels safe discharging home today. Pt denies the need for HHC or OP Therapy. Pt was cleared by PT and her 6-Click score is 24. Pt denies further questions or concerns at this time.
== END 2023-10-28 15:55 | disposition home or self-care (01) ==
LOC: ED 20:55 → PCU 10-28 02:33
PROVIDERS: Admitting Provider Internal Medicine; Emergency Provider Student in an Organized Health Care Education/Training Program; PCP Internal Medicine; Visit Provider Internal Medicine
DX: R51.9 Headache, unspecified (principal); E78.5 Hyperlipidemia, unspecified; I10 Essential (primary) hypertension; H54.7 Unspecified visual loss; R07.9 Chest pain, unspecified; K21.9 Gastro-esophageal reflux disease without esophagitis; M79.7 Fibromyalgia; Z79.899 Other long term (current) drug therapy; F41.1 Generalized anxiety disorder; M19.90 Unspecified osteoarthritis, unspecified site; Z79.82 Long term (current) use of aspirin; I70.0 Atherosclerosis of aorta; I34.81 Nonrheumatic mitral (valve) annulus calcification; I65.23 Occlusion and stenosis of bilateral carotid arteries
CPT/HCPCS: 36415; 70450; 70551; 71045; 80048; 80061; 83036; 84443; 84484; 85025; 85652; 86140; 92610; 93005; 93306; 93880; 94762; 96374; 97161; 99221; 99284; J7030; A4216; G0378

== ENCOUNTER 2024-06-19 18:58 | Emergency (ER) | payer MEDICARE, OTHER, SELFPAY ==
[2024-06-19 18:59] VITALS: PULSE 91; RESP 18; TEMP 36.9; O2SAT 99; BMI 30.6
[2024-06-19 19:01] VITALS: BP 182/52; PULSE 99; RESP 18; TEMP 36.9; O2SAT 99
--- NOTE | 2024-06-19 19:05 | EX.ED.DYSGE1 ---
HPI History of Present Illness Chief Complaint: Abd Pain [facility] Medical History (Updated 06/19/24 @ 19:03 by Les Mccain) Diverticulitis Carotid stenosis Anxiety GERD (gastroesophageal reflux disease) Fibromyalgia Hyperlipidemia Hypertension Home Medications ?Medication ?Instructions ?Recorded ?Last Taken ?Type ezetimibe 10 mg tablet 10 mg PO DAILY 10/27/23 Unknown History acetaminophen 325 mg tablet 650 mg (2 x 325 mg) PO Q4H PRN PRN 10/28/23 Unknown Rx Pain 1-10 Or Fever>99.6 #0 tabs aspirin 81 mg chewable tablet 81 mg PO DAILYCM 30 days #0 tabs 10/28/23 Unknown Rx levofloxacin 750 mg tablet 750 mg PO DAILY #7 tabs 06/19/24 Unknown Rx metronidazole 500 mg tablet 500 mg PO BID 7 days #14 tabs 06/19/24 Unknown Rx ondansetron 4 mg disintegrating 4 mg PO Q8H PRN PRN Nausea #10 tabs 06/19/24 Unknown Rx tablet Allergy/AdvReac Type Severity Reaction Status Date / Time iodine Allergy Shortness Verified 06/19/24 19:02 of breath Ewmdvao-PKC-WlJ Reductase Allergy Rash Verified 06/19/24 19:02 Inhibitor (Qsdgrct-Dvj-Feb Reductase Inhibitor) fenofibrate (From Tricor) AdvReac Other Verified 06/19/24 19:02 Family History Mother Heart disease Father Heart disease Surgical History S/P partial resection of colon Social History household members: none housing: house Smoking Status: Unknown if ever smoked alcohol intake: never substance use type: does not use EXAM Physical Exam Const Vital Signs: 06/19/24 18:59 06/19/24 19:01 06/19/24 20:01 Temperature 98.5 F 98.5 F 98.3 F Temperature Source Oral Oral Oral Pulse Rate 91 99 79 Respiratory Rate 18 18 18 Blood Pressure 182/52 H 158/39 H Blood Pressure Mean 95 78 Pulse Ox 99 99 99 Oxygen Delivery Method Room Air Room Air Room Air 06/19/24 20:58 06/19/24 21:38 06/19/24 22:00 Temperature 97.8 F Temperature Source Pulse Rate 91 89 81 Respiratory Rate 18 18 18 Blood Pressure 167/45 H 167/45 H 151/46 H Blood Pressure Mean 85 85 81 Pulse Ox 95 95 97 Oxygen Delivery Method Room Air Room Air [facility] Narrative Medical decision making narrative: HISTORY OF PRESENT ILLNESS: 84-year-old female with history of significant abdominal surgery, intestinal resection presents with left lower quadrant pain. She endorses left lower quadrant pain. She further states this began about an hour prior to arrival. No nausea or vomiting. No trouble urinating. No melena or hematochezia. REVIEW OF SYSTEMS: Pertinent positives: Abdominal pain Pertinent negatives: Nausea vomiting PHYSICAL EXAM: Nursing triage notes reviewed, Vital signs reviewed Constitutional: please see [facility] HENT: MMM Eyes: Pupils equal round and reactive to light, Extraocular muscles intact Neck: No stridor, no JVD, full neck ROM Lungs: Clear to auscultation, No wheezing or rales. No increased work of breathing, no conversational dyspnea, no accessory muscle use, no nasal flaring. No respiratory distress noted Heart: Regular rate and rhythm, No murmurs, No rubs and No gallops, 2+ distal pulses (radial, femoral, posterior tibial) in all extremities Abdomen: Soft, there is no tenderness, rigidity, rebound or guarding, no obvious peritoneal signs, no palpable pulsatile abdominal masses, no auscultated abdominal bruit : No CVAT Extremities: No edema Neuro: No new focal neurological deficits, cranial nerves II through XII intact, 5/5 strength in all present extremities. Intact sensation to light touch in all present extremities, 2+ reflexes bilateral patella tendons. Skin: No rash or lesions noted MEDICAL DECISION MAKING: Chief Complaint: Abdominal pain External records reviewed: CT scan of the abdomen pelvis from 2021 was read and reviewed and showed diverticulosis Factors affecting care: Hypertension, hyperlipidemia, obesity Social determinants of health: none History obtained from others: none Consults: none [facility] Narrative: Patient was initially hypertensive with blood pressure 182/52, afebrile and nontoxic-appearing. Exam left lower quadrant TTP. No peritoneal signs I considered the following differential diagnosis: AAA, small bowel obstruction, abdominal perforation, appendicitis, pancreatitis, hepatobiliary pathology (acute cholecystitis), mesenteric ischemia, pathology (ie nephrolithiasis, pyelonephritis). I obtained a broad lab and imaging workup to further elucidate the etiology of the patient's complaints Initially treated patient with IV Toradol, IV Zofran, IV fluid. ALL IMAGES (IF OBTAINED) HAVE BEEN PERSONALLY REVIEWED AND INTERPRETED BY MYSELF. CBC without leukocytosis, severe anemia, no thrombocytopenia. BMP without evidence of significant electrolyte abnormalities, no anion gap, no acute kidney injury. LFTs show no evidence of hepatobiliary pathology. Lipase is wnl indicating no pancreatic inflammation. Urinalysis shows no evidence of urinary inflammation suggestive of UTI CT scan of the pelvis shows evidence of diverticulitis, no signs of perforation Gave Flagyl and levofloxacin given the patient's myriad of antibiotic allergies. These were given here in the emergency department. Patient was observed for any signs of allergy. She had no sign of allergic reaction. These prescriptions were given for home-going. Strict return precautions discussed. Signs of abdominal perforation were discussed. The patient and/or family, caregivers express understanding. The patient and/or family, caregivers agrees with the plan. Shared decision making: I will have a discussion with the patient and or visitors regarding risk/benefits of further testing or admission. They will be made aware of of the risk/benefits inherent in this decision they will be given the opportunity to voice understanding. Total critical care time today provided was at least 0 minutes. This excludes separately billable procedures. Critical care time (if documented) is secondary to the patient having high probability of clinically significant/life threatening deterioration in the patient's condition which required my urgent intervention. Impression: 1. Acute abdominal pain 2. Diverticulitis Dispo: discharge home This note was generated with [employer] dictation software. It may contain incorrect words, spelling, and punctuation that were not noted in review of the chart prior to signing. Lab Data Labs: Laboratory Results - last 24 hr 06/19/24 06/19/24 19:14 19:55 WBC 9.7 RBC 4.63 Hgb 14.7 Hct 43.2 MCV 93.3 MCH 31.7 MCHC 34.0 RDW Std Deviation 46.5 H RDW Coeff of Alex 13.7 Plt Count 231 MPV 9.7 Immature Gran % (Auto) 1.100 H Neut % (Auto) 53.3 Lymph % (Auto) 35.3 [place] % (Auto) 8.0 Eos % (Auto) 1.5 Baso % (Auto) 0.8 Absolute Neuts (auto) 5.2 Absolute Lymphs (auto) 3.43 Nucleated RBC % 0 Sodium 142 Potassium 3.9 Chloride 110 H Carbon Dioxide 26.0 Anion Gap 5 BUN 17 Creatinine 0.74 Estim Creat Clear Calc 50.04 Est GFR (MDRD) Af Amer 96 Est GFR (MDRD) Non-Af 79 BUN/Creatinine Ratio 23.0 H Glucose 116 H Calcium 9.6 Total Bilirubin 0.30 Direct Bilirubin 0.12 AST 15 ALT 18 Alkaline Phosphatase 71 Total Protein 6.7 Albumin 3.5 Globulin 3.2 Lipase 41 Urine Color Yellow Urine Clarity Clear Urine pH 7.0 Ur Specific [place] 1.010 Urine Protein Negative Urine Glucose (UA) Normal Urine Ketones Negative Urine Occult Blood 150 H Urine Nitrite Negative Urine Bilirubin Negative Urine Urobilinogen Normal Ur Leukocyte Esterase Negative Urine RBC 0 SEEN Urine WBC 0 SEEN Ur Squamous Epith Cells 0 SEEN Urine Bacteria 0 SEEN Urine Mucus 0 SEEN Radiography Diagnostic Testing: Clinical Impression(s) from Imaging Studies Abdomen/Pelvis CT 06/19/24 19:19 IMPRESSION: Acute descending and sigmoid colon diverticulitis. No focal fluid collection or free air. Cannot rule out underlying malignancy. Consider colonoscopy after acute infection has resolved. Electronically Signed: Mitchell Smith MD at 20:50 EST , Discharge Plan Triage Chief Complaint: Abd Pain ED Provider: Scar Hernandez Dx/Rx/DC Orders Instructions: ED Diverticulitis Prescriptions: New levofloxacin 750 mg tablet 750 mg PO DAILY Qty: 7 0RF metronidazole 500 mg tablet 500 mg PO BID 7 Days Qty: 14 0RF ondansetron 4 mg tablet,disintegrating 4 mg PO Q8H PRN PRN (Reason: Nausea) Qty: 10 0RF No Action ezetimibe 10 mg tablet 10 mg PO DAILY acetaminophen 325 mg Tablet 650 mg PO Q4H PRN PRN (Reason: Pain 1-10 Or Fever>99.6) Qty: 0 0RF aspirin 81 mg Tablet,Chewable 81 mg PO DAILYCM 30 Days Qty: 0 0RF Primary Care Provider: Bennett Weir Referrals: Bennett Weir MD [Primary Care Provider] - Activity Restrictions/Additional Instructions: Thank you for trusting us with your care today! Please take antibiotics until course complete. Please take Zofran as needed for nausea vomiting troponin Please take Tylenol (2 pills, 650 mg), ibuprofen (2 pills, 400 mg) every 6 hours as needed for pain and fever control. Please return to the emergency department if your symptoms change or worsen. Please follow with your primary care physician for further outpatient evaluation and management. Print Language: Tamazight Disposition Disposition: Home, Self Care Discharge Date/Time: 06/19/24 22:25
--- NOTE | 2024-06-19 19:19 | CT_ITS ---
INDICATION: llq abdominal pain EXAMINATION: CT Abdomen And Pelvis W/O Contrast Injection TECHNIQUE: Helically acquired images were obtained of the abdomen and pelvis without the use of IV contrast. A radiation dose optimization technique was used for this scan. Oral contrast: None. COMPARISON: 10/07/2021 FINDINGS: Evaluation of the solid organs and vascular structures is limited without intravenous contrast. Visualized lung bases: Unremarkable Liver: Unremarkable Gallbladder: Not visualized. Spleen: Multiple splenic granulomas. Pancreas: Unremarkable Adrenal Glands: Unremarkable Kidneys: Bilateral parapelvic renal cysts. Vasculature: Severe aortoiliac atherosclerotic disease. GI Tract: Scattered colonic diverticula. There is moderate segment circumferential wall thickening of the descending and sigmoid colon with minimal surrounding fat stranding. No focal fluid collection or free air. Lymphadenopathy: None Peritoneum: No ascites. Bladder: Unremarkable Reproductive organs: Unremarkable Bones/Soft tissues: There are diffuse degenerative changes of the spine. Grade 1 anterolisthesis L4 on L5. CT/Abdomen/Pelvis without Cont IMPRESSION: Acute descending and sigmoid colon diverticulitis. No focal fluid collection or free air. Cannot rule out underlying malignancy. Consider colonoscopy after acute infection has resolved. Electronically Signed: Mitchell Smith MD at 20:50 EST ,
[2024-06-19 19:33] LABS: Absolute Lymphocyte Count 3.43 X10^3/uL (0.83-4.51); Absolute Neutrophil Count 5.2 X10^3/uL (2.0-7.7); Basophil# 0.08 X10^3/uL; Basophil% 0.8 % (0-1); Eosinophil# 0.15 X10^3/uL; Eosinophils% 1.5 % (0-5); Hematocrit 43.2 % (37-47); Hemoglobin 14.7 g/dL (12.0-15.0); Lymphocyte # 3.43 X10^3/ul (0.83-4.51); Lymphocyte % 35.3 % (19-41); Mean Corpuscular Hgb 31.7 pg (27.0-32.0); Mean Corpuscular Volume 93.3 fL (81-99); Mean Platelet Vol. 9.7 fl (6.2-12.0); Monocyte# 0.78 X10^3/uL; NRBC Flagged by Analyzer 0 % (0-5); Neutrophil # 5.17 X10^3/uL (2.7-7.7); Neutrophil % 53.3 % (47-70); Platelet Count 231 K/mm3 (150-450); RBC Distribution Width CV 13.7 % (11.6-14.6); RBC Distribution Width SD 46.5 fl (35.1-43.9); Red Blood Count 4.63 M/mm3 (4.2-5.4); White Blood Count 9.7 K/mm3 (4.4-11.0)
[2024-06-19] MEDS: Ketorolac 15 MG/ML Vial IV (19:42)
[2024-06-19] MEDS: Ondansetron 4 MG/2 ML Vial IV (19:42)
[2024-06-19] MEDS: 0.9% Normal Saline (1000mL) 1,000 ML 999 ML IV (19:42)
[2024-06-19 19:50] LABS: AST(SGOT) 15 U/L (15-37); Alanine Aminotransfer ALT/SGPT 18 U/L (13-56); Albumin, Serum 3.5 g/dL (3.2-5.0); Alkaline Phosphatase 71 U/L (45-117); Anion Gap 5 (5-15); BUN 17 mg/dL (7-18); Bilirubin, Direct 0.12 mg/dL (0.00-0.30); Calcium,Total 9.6 mg/dL (8.5-10.1); Chloride 110 mmol/L (98-107); Creatinine, Serum 0.74 mg/dL (0.55-1.02); EST Glomerular Filtration Rate 79 mL/min (>60); Est Glom Filt Rate - Afr Amer 96 mL/min (>60); Estimated Creatinine Clearance 50.04 ml/min; Globulin 3.2 g/dL (2.2-4.2); Glucose 116 mg/dL (74-106); Lipase 41 U/L (13-75); Potassium 3.9 mmol/L (3.5-5.1); Protein, Total 6.7 g/dL (6.4-8.2); Sodium Level 142 mmol/L (136-145)
[2024-06-19 20:01] VITALS: BP 158/39; PULSE 79; RESP 18; TEMP 36.8; O2SAT 99
[2024-06-19 20:07] LABS: Bacteria 0 SEEN /hpf (None Seen); Mucous, Urine 0 SEEN /hpf (<or=2+); Red Blood Cells-Urine 0 SEEN /hpf (0-5); Squamous Epithelial Cells - UA 0 SEEN /hpf (5-10); White Blood Cells 0 SEEN /hpf (0-5)
[2024-06-19 20:21] LABS: Color, Urine Yellow (Yellow); Glucose, Dipstick Normal (Normal); Ketone-Dipstick Negative (Negative); Leukocyte Esterase-Dipstick Negative /ul (Negative); Nitrite-Dipstick Negative (Negative); Occult Blood-Urine 150 /ul (Negative); Protein-Dipstick Negative (Negative); Urine Bilirubin Dipstick Negative (Negative); Urine Clarity Clear (Clear); Urine Urobilinogen Normal (Normal)
[2024-06-19 20:58] VITALS: BP 167/45; PULSE 91; RESP 18; O2SAT 95
[2024-06-19] MEDS: metroNIDAZOLE 500 MG Tablet PO (21:27)
[2024-06-19 21:38] VITALS: BP 167/45; PULSE 89; RESP 18; TEMP 36.6; O2SAT 95
[2024-06-19] MEDS: levoFLOXacin 750 MG Tablet PO (21:59)
[2024-06-19 22:00] VITALS: BP 151/46; PULSE 81; RESP 18; O2SAT 97
== END 2024-06-19 22:25 | disposition home or self-care (01) ==
PROVIDERS: Emergency Provider Emergency Medicine; PCP Internal Medicine; Visit Provider Emergency Medicine
DX: R10.32 Left lower quadrant pain (principal); K57.32 Diverticulitis of large intestine without perforation or abscess without bleeding; I10 Essential (primary) hypertension; E66.9 Obesity, unspecified; E78.5 Hyperlipidemia, unspecified; Z79.82 Long term (current) use of aspirin
CPT/HCPCS: 74176; 80048; 80076; 81001; 83690; 85025; 96361; 96374; 96375; 99284; A4216; J2405

== ENCOUNTER 2024-08-19 00:29 | Emergency (ER) | payer MEDICARE, OTHER, SELFPAY ==
[2024-08-19 00:30] VITALS: BP 150/63; PULSE 114; RESP 16; TEMP 36.8; O2SAT 97; BMI 29.2
--- NOTE | 2024-08-19 01:11 | RAD_ITS ---
PROCEDURE: KNEE 4 OR MORE VIEWS 08/19/2024 REASON FOR EXAM: PAIN, NO INJURY TECHNIQUE: 4 view(s) of the right knee COMPARISON: None available FINDINGS: No fracture or dislocation. Olda-gu-cbtjoqpo appearing osteoarthrosis of the patellofemoral compartment and mild at the medial compartment. Chondrocalcinosis noted lateral compartment. Appearance of joint effusion on the lateral view. Vascular calcifications noted. RAD/Knee 4 or More Views IMPRESSION: No fracture or dislocation. Osteoarthrosis as above with appearance of joint e ffusion noted. Reading Location: [id number]
[2024-08-19] MEDS: Acetaminophen 500 MG Tablet 1000 MG PO (02:29)
[2024-08-19 02:30] VITALS: BP 149/50; PULSE 88; RESP 16; O2SAT 97
[2024-08-19 03:33] VITALS: BP 144/57; PULSE 87; RESP 16; TEMP 36.8; O2SAT 95
--- NOTE | 2024-08-19 05:44 | EX.ED.DYSGE1 ---
HPI History of Present Illness Chief Complaint: Lower Extremity Injury Narrative Narrative: Patient is a 84-year-old female with past medical history of anxiety, fibromyalgia, hypertension, hyperlipidemia who presented to the emergency department the chief complaint of right knee pain. Patient states that she did not have any injury or any inciting events to cause her right knee pain. Patient states that she does rate this of 10 out of 10. States that she has not been taking any thing for pain. Patient notes that just recently she had a similar bout of pain in the left knee but eventually got better on its own. Patient denies any recent travel history denies any history of blood clots. [facility] Medical History Diverticulitis Carotid stenosis Anxiety GERD (gastroesophageal reflux disease) Fibromyalgia Hyperlipidemia Hypertension Home Medications ?Medication ?Instructions ?Recorded ?Last Taken ?Type ezetimibe 10 mg tablet 10 mg PO DAILY 10/27/23 Unknown History acetaminophen 325 mg tablet 650 mg (2 x 325 mg) PO Q4H PRN PRN 10/28/23 Unknown Rx Pain 1-10 Or Fever>99.6 #0 tabs aspirin 81 mg chewable tablet 81 mg PO DAILYCM 30 days #0 tabs 10/28/23 Unknown Rx levofloxacin 750 mg tablet 750 mg PO DAILY #7 tabs 06/19/24 Unknown Rx metronidazole 500 mg tablet 500 mg PO BID 7 days #14 tabs 06/19/24 Unknown Rx ondansetron 4 mg disintegrating 4 mg PO Q8H PRN PRN Nausea #10 tabs 06/19/24 Unknown Rx tablet Allergy/AdvReac Type Severity Reaction Status Date / Time iodine Allergy Shortness Verified 06/19/24 19:02 of breath Ohrhnsj-RRB-VsS Reductase Allergy Rash Verified 06/19/24 19:02 Inhibitor (Lhncink-Bjw-Fkq Reductase Inhibitor) fenofibrate (From Tricor) AdvReac Other Verified 06/19/24 19:02 Family History Mother Heart disease Father Heart disease Surgical History S/P partial resection of colon Social History household members: none housing: house Smoking Status: Never smoker alcohol intake: never substance use type: does not use ROS ROS ED ROS Narrative Constitutional: Denies fevers, chills, headaches, lightness, dizziness Cardiovascular: Denies chest pain Respiratory: Denies coughing wheezing shortness of breath Neurological: Denies numbness, weakness, tingling Musculoskeletal: Complains of right knee pain as noted above Skin: Denies rashes or lesions EXAM Physical Exam Narrative Exam Narrative: General: Patient was lying in bed rest comfortably did not appear to be in acute distress Head: Atraumatic, normocephalic Eyes: PERRL bilateral, EOMI bilateral, no conjunctival injection noted Neck: Soft, supple, trachea midline Cardiovascular: Regular rate and rhythm no murmurs gallops rubs noted Respiratory: Clear to auscultation bilaterally no rales rhonchi or wheezes noted Musculoskeletal: Patient has full range of motion of her right knee without any difficulty or pain, compartments are soft compressible, no tenderness palpation of the calf no asymmetric swelling noted on exam the bilateral lower extremities Extremities: +4/5 strength noted in the bilateral upper and lower extremities, DP pulse +2/4 in the bilateral lower extremities no pedal edema noted Neurological: Patient following commands knew that she was at [facility] years 2024 Skin: Warm, dry, tact no rashes or lesions noted Const Vital Signs: 08/19/24 00:30 08/19/24 02:30 08/19/24 03:33 Temperature 98.2 F 98.2 F Temperature Source Oral Pulse Rate 114 H 88 87 Respiratory Rate 16 16 16 Blood Pressure 150/63 H 149/50 H 144/57 H Blood Pressure Mean 92 83 86 Pulse Ox 97 97 95 Oxygen Delivery Method Room Air Room Air MDM MDM MDM Narrative Medical decision making narrative: Patient is a 84-year-old female who presented to the emerged part with a chief complaint of right knee pain. On the differential diagnose includes but not limited to musculoskeletal strain, fracture although feel these are less likely as she had no trauma or injury to the knee, knee osteoarthritis, joint effusion. Once workup is obtained reviewed she will be reevaluated. Patient was ordered Toradol however she refused this and wanted Tylenol which was ordered. I ordered a gram of Tylenol she refused the gram and only wanted 500 mg. Patient's x-ray of her knee was reviewed and showed no acute fracture dislocation there is osteoarthrosis with appearance of a joint effusion on the lateral view. Discussed results with the patient and family bedside. Patient would like to go home at this point time. Patient's family bedside question to a blood clot I state that I have low suspicion for this however if they want me to I will order a DVT study for tomorrow morning here at the hospital given that the ultrasound team is not available overnight tonight. They decided they do not want to pursue this and they state that she has an appointment on Thursday if she is still having persistent pain at that point time will talk with the primary care physician to decide if they need to get a ultrasound or not. She is encouraged to take Tylenol for pain and ice elevate and return with worsening symptoms or concerns. She is agreeable this plan as well as family at bedside all question concerns answered she was discharged home in stable condition. Radiography Diagnostic Testing: Clinical Impression(s) from Imaging Studies Knee X-Ray 08/19/24 01:11 IMPRESSION: No fracture or dislocation. Osteoarthrosis as above with appearance of joint effusion noted. Reading Location: [facility] Discharge Plan Triage Chief Complaint: Lower Extremity Injury ED Provider: Ky Ruiz Dx/Rx/DC Orders Clinical Impression: Knee pain Instructions: ED RICE Prescriptions: No Action ezetimibe 10 mg tablet 10 mg PO DAILY acetaminophen 325 mg Tablet 650 mg PO Q4H PRN PRN (Reason: Pain 1-10 Or Fever>99.6) Qty: 0 0RF aspirin 81 mg Tablet,Chewable 81 mg PO DAILYCM 30 Days Qty: 0 0RF levofloxacin 750 mg tablet 750 mg PO DAILY Qty: 7 0RF metronidazole 500 mg tablet 500 mg PO BID 7 Days Qty: 14 0RF ondansetron 4 mg tablet,disintegrating 4 mg PO Q8H PRN PRN (Reason: Nausea) Qty: 10 0RF Primary Care Provider: Bennett Weir Referrals: Bennett Weir MD [Primary Care Provider] - Activity Restrictions/Additional Instructions: Follow-up with your primary care physician outpatient setting. Return with worsening symptoms or concerns. If your symptoms are still persistent on Thursday at your scheduled appoint with your doctor you can discuss with them at that point time about obtaining an ultrasound of your right leg. Use Tylenol for pain control. Print Language: Divehi Disposition Disposition: Home, Self Care Discharge Date/Time: 08/19/24 03:34
== END 2024-08-19 03:34 | disposition home or self-care (01) ==
PROVIDERS: Emergency Provider Emergency Medicine; PCP Internal Medicine; Visit Provider Emergency Medicine
DX: M25.561 Pain in right knee (principal); F41.9 Anxiety disorder, unspecified; E78.5 Hyperlipidemia, unspecified; I10 Essential (primary) hypertension; Z79.82 Long term (current) use of aspirin; Z79.899 Other long term (current) drug therapy
CPT/HCPCS: 73564; 99284

== ENCOUNTER 2024-09-29 08:56 | Emergency (ER) | payer MEDICARE, OTHER, SELFPAY ==
[2024-09-29 08:57] VITALS: BP 164/73; PULSE 74; RESP 22; TEMP 37.2; O2SAT 98; BMI 29.5
--- NOTE | 2024-09-29 09:17 | RAD_ITS ---
PROCEDURE: CHEST PA AND LATERAL 09/29/2024 REASON FOR EXAM: COUGH TECHNIQUE: Frontal and lateral views of the chest. COMPARISON: 10/27/2023 FINDINGS: Lungs: Lungs clear of pneumonia and congestion. Pleura: No pleural effusions, thickening, or pneumothorax. Heart: Normal in size and configuration. Mediastinum/[place]: Unremarkable. Great vessels: Unremarkable. Bones/soft tissues: Unremarkable. RAD/Chest PA and Lateral IMPRESSION: No active cardiopulmonary disease. Reading Location: [facility]
--- NOTE | 2024-09-29 09:21 | CT_ITS ---
PROCEDURE: BRAIN/HEAD WITHOUT CONTRAST 09/29/2024 REASON FOR EXAM: VERTIGO TECHNIQUE: Contiguous axial scans of 3.75 mm slice thicknesses with sagittal and coronal reconstruction images. One or more dose reduction techniques were utilized (e.g., automated exposure control, adjustment of mA and/or kv according to patient size, use of iterative reconstruction technique). RADIATION DOSE SUMMARY: DLP: 745.49 mGycm COMPARISON: 10/27/2023 CT brain. FINDINGS: Cerebrum: No intraparenchymal hemorrhage. No abnormal areas of encephalomalacia. No mass effect or midline shift. [place]-white matter differentiation is normal. Ventricles and cisterns: Appropriate size for patient's age. Extra-axial fluid: Unremarkable. Posterior fossa: Unremarkable cerebellum. No abnormalities involving the brainstem. Paranasal sinuses: Normal. Vasculature: Unremarkable. Mastoid air cells: unremarkable. Calvarium: Mild hyperostosis frontalis interna. Soft tissues: Unremarkable. . CT/Brain/Head without Contrast IMPRESSION: NO ACUTE FINDINGS. Reading Location: [facility]
[2024-09-29] MEDS: Metoclopramide 10 MG/2 ML Vial 5 MG IV (09:25)
[2024-09-29 09:47] LABS: Absolute Lymphocyte Count 1.82 X10^3/uL (0.83-4.51); Absolute Neutrophil Count 7.8 X10^3/uL (2.0-7.7); Basophil# 0.07 X10^3/uL; Basophil% 0.7 % (0-1); Eosinophil# 0.07 X10^3/uL; Eosinophils% 0.7 % (0-5); Hematocrit 43.2 % (37-47); Hemoglobin 15.3 g/dL (12.0-15.0); Lymphocyte # 1.82 X10^3/ul (0.83-4.51); Lymphocyte % 17.3 % (19-41); Mean Corp Hgb Conc 35.4 g/dL (32-36); Mean Corpuscular Hgb 34.2 pg (27.0-32.0); Mean Corpuscular Volume 96.6 fL (81-99); Mean Platelet Vol. 9.7 fl (6.2-12.0); Monocyte# 0.63 X10^3/uL; NRBC Flagged by Analyzer 0 % (0-5); Neutrophil # 7.84 X10^3/uL (2.7-7.7); Neutrophil % 74.4 % (47-70); Platelet Count 237 K/mm3 (150-450); RBC Distribution Width CV 15.1 % (11.6-14.6); RBC Distribution Width SD 46.1 fl (35.1-43.9); Red Blood Count 4.47 M/mm3 (4.2-5.4); White Blood Count 10.5 K/mm3 (4.4-11.0)
[2024-09-29] MEDS: 0.9% Normal Saline (500mL Bag) 500 ML 1000 ML IV (09:47)
[2024-09-29 09:51] LABS: Prothrombin Time (Protime)PT. 13.1 SECONDS (11.7-14.9)
[2024-09-29 09:52] LABS: Partial Thromboplast Time 26.8 Seconds (24.1-36.2)
[2024-09-29 10:03] LABS: Bacteria 0 SEEN /hpf (None Seen); Mucous, Urine 0 SEEN /hpf (<or=2+)
[2024-09-29 10:05] LABS: Anion Gap 9 (5-15); BUN 16 mg/dL (4-19); BUN/Creat Ratio 22.9 RATIO (10-20); Calcium,Total 9.5 mg/dL (7.6-11.0); Carbon Dioxide 24.4 mmol/L (21.0-32.0); Chloride 106 mmol/L (98-108); Creatinine, Serum 0.71 mg/dL (0.70-1.20); EST Glomerular Filtration Rate 83 (>60); Estimated Creatinine Clearance 47.32 ml/min (50-250); Glucose 119 mg/dL (70-99); Potassium 4.1 mmol/L (3.3-5.1); Sodium Level 140 mmol/L (133-145)
[2024-09-29 10:13] LABS: Color, Urine Yellow (Yellow); Glucose, Dipstick Normal (Normal); Ketone-Dipstick Negative (Negative); Leukocyte Esterase-Dipstick 100 /ul (Negative); Nitrite-Dipstick Negative (Negative); Occult Blood-Urine 50 /ul (Negative); Protein-Dipstick Negative (Negative); Urine Bilirubin Dipstick Negative (Negative); Urine Clarity Clear (Clear); Urine Urobilinogen Normal (Normal)
[2024-09-29 10:24] LABS: Squamous Epithelial Cells - UA 0-5 SEEN /hpf (5-10)
[2024-09-29 10:25] LABS: Red Blood Cells-Urine 0-5 SEEN /hpf (0-5); White Blood Cells 0-5 SEEN /hpf (0-5)
--- NOTE | 2024-09-29 10:36 | EDS_ITS ---
HPI History of Present Illness Chief Complaint: Dizziness Informant: patient and family Narrative Narrative: Presents here with daughter for evaluation weakness and fatigue started 2 days ago. Yesterday morning had transient dizziness with spinning. It went away. She has she went to her eye doctor yesterday for evaluation and negative eye exam. Patient went to bed around 10 PM and felt dizziness, awakened around 6 AM worsening dizziness with room spinning. Nausea secondary to this. No headaches. She has had vertigo years ago. She has had a TIA years ago with similar symptoms. She does not take any daily medicines currently. However notes from records hypertension hyperlipidemia. She ambulates with a cane due to her osteoarthritis of the left knee. No cough. No vomiting. Had 1 loose stool yesterday nonbloody. Is tolerating oral fluids. She does have chronic tinnitus. Prior similar symptoms: Yes PFSH PFSH Medical History Diverticulitis Carotid stenosis Anxiety GERD (gastroesophageal reflux disease) Fibromyalgia Hyperlipidemia Hypertension Home Medications ?Medication ?Instructions ?Recorded ?Last Taken ?Type metoclopramide HCl 5 mg tablet 5 mg PO TID PRN PRN valerie tigo #20 09/29/24 Unknown Rx (Reglan) tabs Allergy/AdvReac Type Severity Reaction Status Date / Time iodine Allergy Shortness Verified 09/29/24 09:00 of breath Lgimide-VDL-DnR Reductase Allergy Rash Verified 09/29/24 09:00 Inhibitor (Khmstyk-Xjy-Lza Reductase Inhibitor) fenofibrate (From Tricor) AdvReac Other Verified 09/29/24 09:00 Family History Mother Heart disease Father Heart disease Surgical History S/P partial resection of colon Social History household members: none housing: house Smoking Status: Never smoker alcohol intake: never substance use type: does not use ROS ROS ED Constitutional Constitutional ED: Denies chills, fever(s) or sweats ENT ENT ED: Denies sore throat Cardiovascular Cardiovascular: Denies chest pain, leg edema, palpitations or racing heartbeat Respiratory/Chest Respiratory/Chest: Denies cough, dyspnea or dyspnea on exertion Gastrointestinal Gastrointestinal: Reports nausea; Denies abdominal pain, diarrhea or vomiting Genitourinary Genitourinary ED: Denies dysuria, hematuria or urinary frequency Musculoskeletal Musculoskeletal: Denies back pain, extremity pain or neck pain Integumentary Denies rash or wounds Neurologic Neurologic: Reports other Details: Dizziness ; Denies headache(s), paresthesias or weakness EXAM Physical Exam Const Vital Signs: 09/29/24 08:57 09/29/24 11:37 09/29/24 12:02 Temperature 99 F 97.5 F L Temperature Source Oral Pulse Rate 74 77 77 Respiratory Rate 22 H 15 15 Blood Pressure 164/73 H 143/67 H 143/67 H Blood Pressure Mean 103 92 92 Pulse Ox 98 98 98 Oxygen Delivery Method Room Air Positive well nourished and well developed General Appearance ED: well developed and NAD HEENT Reports moist mucous membranes HEENT Narrative: Cerumen noted right external canal. Left TM normal. normocephalic and atraumatic Eyes Eyes Narrative: No nystagmus of the eyes. General Eye ED: Yes normal appearance of both eyes Neck full ROM Chest Wall inspection of chest normal and palpation of chest normal Chest: Negative for tenderness Resp normal respiratory effort and normal air movement Effort and Inspection: symmetric chest movement; Negative for respiratory distress Cardio regular rate, regular rhythm and no murmurs Peripheral Pulses: pulses 2+ throughout GI normal to inspection, nondistended, normoactive bowel sounds and non-tender Palpation: Negative for guarding or rebound tenderness present Extremity normal to inspection General Extremety ED: Negative for edema or tenderness General Extremity: Negative for edema Neuro oriented x3, CN's II-XII intact bilaterally and no sensory deficits noted Neuro Narrative: NIH of 0. Cerebellar upper and lower intact. [place]-Hallpike negative bilaterally. Sensorium / Orientation: awake and alert Skin no rashes or lesions noted and no wounds MDM MDM MDM Narrative Medical decision making narrative: Interventions / MDM: Differential diagnosis: Vertigo Diagnosis considered but do not suspect: Intracranial hemorrhage however CT negative. My EKG interpretation: Sinus rate of 70, no ST changes. QTc 483. Imaging independently reviewed and interpreted by myself: CT brain: No acute process also read by radiology. External documents reviewed: Hospital visits 2020 in October 2023 admission for TIA workup however had different symptoms. First visit for transient leg weakness, second visit was for visual aura sensations. Test considered but not ordered:N/A ED course: Patient worsening vertigo symptoms NIH of 0. Will check EKG. Severe allergy to iodine reporting respiratory distress sent to the emergency department previously. She has not had any IV dye scan since then. Symptoms started yesterday morning and recurrent last evening. She is not a TNK candidate. Will start with CT brain, labs will be ordered. IV Reglan ordered. Will reevaluate. Patient's workup negative clinically feeling better on reevaluation she is able to ambulate with no return of symptoms. Visits previously from hospitalizations for TIA workups that were negative. She cannot tolerate statins and she would have intermittent bruising and nosebleeds from baby aspirin. Medication stopped by her PCP. Patient will follow-up with her doctor for reevaluation. Prescription for Reglan to use as needed. Discussed tricked return precautions for recurrent or worsening symptoms. All questions were answered. Re-evaluation: stable Disposition discussed with patient/family/significant other: Patient and daughter Case discussed with consulting clinician: N/A This note was generated with [employer] dictation software. It may contain incorrect words, spelling, and punctuation that were not noted in checking the note before signing. Lab Data Attestation: I reviewed the patient's lab results. Labs: Laboratory Results - last 24 hr 09/29/24 09/29/24 09:07 09:55 WBC 10.5 RBC 4.47 Hgb 15.3 H Hct 43.2 MCV 96.6 MCH 34.2 H MCHC 35.4 RDW Std Deviation 46.1 H RDW Coeff of Alex 15.1 H Plt Count 237 MPV 9.7 Immature Gran % (Auto) 0.900 Neut % (Auto) 74.4 H Lymph % (Auto) 17.3 L [place] % (Auto) 6.0 Eos % (Auto) 0.7 Baso % (Auto) 0.7 Absolute Neuts (auto) 7.8 H Absolute Lymphs (auto) 1.82 Nucleated RBC % 0 PT 13.1 INR 1.0 APTT 26.8 Sodium 140 Potassium 4.1 Chloride 106 Carbon Dioxide 24.4 Anion Gap 9 BUN 16 Creatinine 0.71 Estim Creat Clear Calc 47.32 L Est GFR (MDRD) Non-Af 83 BUN/Creatinine Ratio 22.9 H Glucose 119 H Calcium 9.5 Urine Color Yellow Urine Clarity Clear Urine pH 7.0 Ur Specific [place] 1.010 Urine Protein Negative Urine Glucose (UA) Normal Urine Ketones Negative Urine Occult Blood 50 H Urine Nitrite Negative Urine Bilirubin Negative Urine Urobilinogen Normal Ur Leukocyte Esterase 100 H Urine RBC 0-5 SEEN Urine WBC 0-5 SEEN Ur Squamous Epith Cells 0-5 SEEN Urine Bacteria 0 SEEN Urine Mucus 0 SEEN Radiography Diagnostic Testing: Clinical Impression(s) from Imaging Studies Chest X-Ray 09/29/24 09:17 IMPRESSION: No active cardiopulmonary disease. [facility] 09/29/24 09:21 IMPRESSION: NO ACUTE FINDINGS. Reading Location: [facility] Discharge Plan Triage Chief Complaint: Dizziness ED Provider: Gopal Christianson Dx/Rx/DC Orders Clinical Impression: Vertigo, Nausea, Fatigue, Weakness Instructions: ED Vertigo, Unspecified Prescriptions: New metoclopramide HCl [Reglan] 5 mg tablet 5 mg PO TID PRN PRN (Reason: vertigo) Qty: 20 0RF Primary Care Provider: Bennett Weir Referrals: Bennett Weir MD [Primary Care Provider] - 1 Week Activity Restrictions/Additional Instructions: CT brain negative. Chest x-ray negative labs negative. Urine negative. Use Reglan as needed for recurrent symptoms. If worsening not controlled medications, or developing new symptoms, return immediately to the ED for reevaluation. Follow-up with your doctor. Print Language: Upper Sorbian Disposition Disposition: Home, Self Care Discharge Date/Time: 09/29/24 12:03
[2024-09-29 11:37] VITALS: BP 143/67; PULSE 77; RESP 15; O2SAT 98
[2024-09-29 12:02] VITALS: BP 143/67; PULSE 77; RESP 15; TEMP 36.4; O2SAT 98
== END 2024-09-29 12:03 | disposition home or self-care (01) ==
PROVIDERS: Emergency Provider Emergency Medicine; PCP Internal Medicine; Visit Provider Emergency Medicine
DX: R42 Dizziness and giddiness (principal); R53.1 Weakness; R53.83 Other fatigue; R11.0 Nausea; E78.5 Hyperlipidemia, unspecified; Z86.73 Personal history of transient ischemic attack (TIA), and cerebral infarction without residual deficits; I10 Essential (primary) hypertension
CPT/HCPCS: 70450; 71046; 80048; 81001; 85025; 85610; 85730; 93005; 96361; 96374; 99285; A4216

== ENCOUNTER → 2024-10-26 | Outpatient (CLI) | payer MEDICARE, OTHER, SELFPAY ==
--- NOTE | 2024-10-26 09:51 | CDU_ITS ---
Reason For Study Reason For Study: Vertigo Rt. Velocities/BP Lt. Velocities/BP Prox CCA 102.3/11.4 cm/sec. Prox CCA 110.1/17 cm/sec. Mid CCA 114.6/16.3 cm/sec. Mid CCA 121.1/13.3 cm/sec. Dist CCA 77.7/13.9 cm/sec. Dist CCA 80.9/13.3 cm/sec. Prox ICA 67.9/11.4 cm/sec. Prox ICA 99.2/18.8 cm/sec. Mid ICA 72.8/17.6 cm/sec. Mid ICA 119.3/31.6 cm/sec. Dist ICA 97.4/21.2 cm/sec. Dist ICA 119.3/29.8 cm/sec. Rt. ICA/CCA = 0.85. Lt. ICA/CCA = 0.99. Prox ECA 118.2/7.7 cm/sec. Prox ECA 152.1/9.7 cm/sec. Rt. Vert. 42.1/9 cm/sec. Lt. Vert. 42.8/8.8 cm/sec. Right Extracranial There is homogeneous, smooth atherosclerotic plaque noted in the right common carotid artery. There is homogeneous, smooth atherosclerotic plaque noted in the right internal carotid artery. There is intimal thickening but no significant atherosclerotic plaque noted in the right external carotid artery. Antegrade flow is noted in the right vertebral artery. Left Extracranial There is heterogeneous, irregular atherosclerotic plaque noted in the left common carotid artery. There is heterogeneous, irregular atherosclerotic plaque noted in the left internal carotid artery. There is heterogeneous, irregular atherosclerotic plaque noted in the left external carotid artery. Antegrade flow is noted in the left vertebral artery. Procedure Carotid Duplex [id number]. This is a Carotid Duplex examination using B-mode, color flow and specral Doppler. Exam performed in department. VL/Carotid Duplex Ultrasound Interpretation Summary Mild (<50%) stenosis right extracranial internal carotid. Mild (<50%) stenosis left extracranial internal carotid. Flow within the vertebral arteries is antegrade bilaterally. Ordering Physician: Bennett Weir Referring Physician: Bennett Weir Performed By: Constance Shen RVT
== END | disposition home or self-care (01) ==
LOC: CVS 09:49
PROVIDERS: PCP Internal Medicine; Referring Provider Internal Medicine; Visit Provider Internal Medicine
DX: H54.3 Unqualified visual loss, both eyes (principal); R42 Dizziness and giddiness
CPT/HCPCS: 93880

== ENCOUNTER 2025-02-12 22:04 | Emergency (ER) | payer MEDICARE, OTHER, SELFPAY ==
[2025-02-12 22:05] VITALS: BP 149/79; PULSE 90; RESP 18; TEMP 36.8; O2SAT 100; BMI 29.8
--- NOTE | 2025-02-12 22:13 | EDS_ITS ---
HPI History of Present Illness Chief Complaint: Chest Pain Informant: patient Onset/Context/Timing Onset: - (Approximately 15 minutes prior to arrival) Activity at onset: sudden Timing: Continuous Quality: Positive for Pressure Location: Substernal, Right Parasternal, Left Parasternal, Right Chest and Left Chest Worsened By: Nothing Relieved By: Nothing Associated Symptoms: Positive for Dyspnea, Cough, Lightheadedness, Acid Reflux and Palpitations; Negative for Nausea, Vomiting, Diaphoresis or Fever Narrative Narrative: Patient presents with chest pain that began rather suddenly tonight. Patient states it began approximately 15 minutes prior to arrival. Patient describes it as a pressure. Patient states it has been constant. Patient states it is diffuse across her chest and radiates into her back. Patient states nothing makes it better nothing makes it worse. Patient admits to shortness of breath and cough. Patient states she did have an episode of lightheadedness this morning. Patient admits to chronic palpitations. Patient denies any nausea or vomiting. CVD Risk Factors: Positive for Hypertension and Hypercholesterolemia; Negative for Diabetes, Family History 1' </=55 or Smoking PE Risk Factors: Negative for Recent Travel/Surgery, Recent Immobilization, Prior DVT or PE, Cancer or OCP + Smoking + >/=35 PFSH PFSH Medical History Diverticulitis Carotid stenosis Anxiety GERD (gastroesophageal reflux disease) Fibromyalgia Hyperlipidemia Hypertension Home Medications ?Medication ?Instructions ?Recorded ?Last Taken ?Type NK 02/12/25 Unknown History Allergy/AdvReac Type Severity Reaction Status Date / Time iodine Allergy Shortness Verified 02/12/25 22:08 of breath Ownbaqf-FTS-PbV Reductase Allergy Rash Verified 02/12/25 22:08 Inhibitor (Fvmnaeq-Pob-Ulz Reductase Inhibitor) fenofibrate (From Tricor) AdvReac Other Verified 02/12/25 22:08 Family History Mother Heart disease Father Heart disease Surgical History S/P partial resection of colon Social History household members: none housing: house Smoking Status: Never smoker alcohol intake: never substance use type: does not use ROS ROS ED Constitutional Constitutional ED: Denies chills or fever(s) Eyes Eyes: Denies blurry vision or change in vision ENT ENT ED: Denies rhinorrhea or sore throat Cardiovascular Cardiovascular: Reports chest pain and palpitations Respiratory/Chest Respiratory/Chest: Reports dyspnea; Denies cough Gastrointestinal Gastrointestinal: Reports abdominal pain; Denies nausea or vomiting Genitourinary Genitourinary ED: Denies dysuria or hematuria Musculoskeletal Musculoskeletal: Reports back pain; Denies neck pain Integumentary Reports rash; Denies abscess Neurologic Neurologic: Denies headache(s) or weakness Allergic/Immunologic Allergic/Immunologic ED: Denies mouth swelling or urticaria EXAM Physical Exam Const Vital Signs: 02/12/25 22:05 02/12/25 22:08 02/12/25 22:28 Temperature 98.3 F Temperature Source Oral Pulse Rate 90 Respiratory Rate 18 Respiratory Effort Normal Non-Labored Blood Pressure 149/79 H Blood Pressure Mean 102 Pulse Ox 100 Oxygen Delivery Method Room Air Room Air 02/12/25 23:05 02/13/25 00:52 02/13/25 02:00 Temperature Temperature Source Pulse Rate 81 81 80 Respiratory Rate 16 19 H 18 Respiratory Effort Blood Pressure 149/79 H 153/59 H 145/61 H Blood Pressure Mean 102 90 89 Pulse Ox 98 99 97 Oxygen Delivery Method Room Air Room Air Room Air Positive well nourished and well developed Constitutional Narrative: BMI is 29.9. General Appearance ED: well developed and NAD HEENT Reports moist mucous membranes Neck supple and no JVD Chest Wall palpation of chest normal Resp normal respiratory effort and clear to auscultation bilaterally Cardio regular rate and regular rhythm GI soft to palpation and non-distended GI Narrative: There is tenderness over the lower abdomen, slightly worse on the right. There is no rebound or guarding noted. Extremity normal to inspection Extremity Narrative: Pedal pulses are equal bilaterally. Capillary refill is less than 2 seconds in all digits. There is no calf tenderness or edema. General Extremety ED: Negative for edema or tenderness General Extremity: Negative for edema Neuro oriented x3, CN's II-XII intact bilaterally and no sensory deficits noted Sensorium / Orientation: awake and alert Motor Exam: strength 5/5 throughout Psych mental status grossly normal Heart Score History: Slightly/Non-Suspicious ECG: Normal Age: >/= 65 years Risk Factors: 1 or 2 Risk Factors Troponin: </= Normal Limit Score: 3 MDM MDM MDM Narrative Medical decision making narrative: Differential diagnosis includes cardiac dysrhythmia, cardiac ischemia, pneumonia, bronchitis, electrolyte abnormality, gastroesophageal reflux disease, musculoskeletal pain, and anxiety. EKG will be obtained to assess for cardiac dysrhythmia and cardiac ischemia. Chest x-ray will be obtained to assess for pneumonia, bronchitis, congestive heart failure, and widened mediastinum. CBC will be obtained to assess for leukocytosis and anemia. Basic metabolic profile will be obtained to assess for electrolyte abnormality renal function. High- sensitivity troponin will be obtained to assess for cardiac ischemia. 2-hour repeat high-sensitivity troponin will be obtained to assess for ongoing cardiac ischemia. History & Record Review Additional record(s) reviewed:: Prior inpatient record, Prior ED visit and Prior labs Lab Data Attestation: I reviewed the patient's lab results. Lab results narrative: CBC was reviewed and was within normal limits. Basic metabolic profile was reviewed and was essentially within normal limits. Initial high-sensitivity troponin was reviewed and was 16. 2-hour repeat high-sensitivity troponin was reviewed and was 16. Labs: Laboratory Results - last 24 hr 02/12/25 02/13/25 22:17 00:45 WBC 10.2 RBC 3.94 L Hgb 14.1 Hct 38.9 MCV 98.7 MCH 35.8 H MCHC 36.2 H RDW Std Deviation 47.8 H RDW Coeff of Alex 16.1 H Plt Count 225 MPV 9.9 Immature Gran % (Auto) 1.100 H Neut % (Auto) 51.9 Lymph % (Auto) 37.9 [place] % (Auto) 7.5 Eos % (Auto) 1.1 Baso % (Auto) 0.5 Absolute Neuts (auto) 5.3 Absolute Lymphs (auto) 3.88 Nucleated RBC % 0 Sodium 138 Potassium 4.3 Chloride 104 Carbon Dioxide 21.4 Anion Gap 13 BUN 29 H Creatinine 0.74 Estim Creat Clear Calc 46.31 L Est GFR (MDRD) Non-Af 78 BUN/Creatinine Ratio 38.3 H Glucose 96 Calcium 9.2 Troponin T High Sens 16 H Troponin T Hi Sens 2 Hr 16 H Radiography Chest X-Ray - ED: 2 View, Read by ED Physician, Read by Radiologist, No Acute Disease and - (Left basilar atelectasis) Diagnostic Testing: Clinical Impression(s) from Imaging Studies Chest X-Ray 02/12/25 22:50 IMPRESSION: Interval appearance of mild left basilar atelectatic pulmonary changes. Reading Location: [place] [id number] [place] and lateral chest x-ray was obtained. There are 2 views. On my independent interpretation, lung crane show some atelectasis in the left base. There is normal cardiac silhouette. Bony thorax is normal. There is no acute process noted. Radiologist also interpreted the x-ray and agrees. EKG Initial EKG: Attestation: I personally reviewed and interpreted this EKG as follows: Interpretation: Sinus Rhythm (91) and No Acute Injury Pattern Comments: EKG was obtained. On my independent interpretation, it showed a normal sinus rhythm with a rate of 91. NE interval, QRS interval, and QTc intervals were all normal. [place] was normal. There are no acute ST or T wave changes. Prior EKG tracings: available for review Prior: Unchanged (09/29/2024) Treatment and Re-Evaluation :: Patient was given aspirin and sublingual nitroglycerin. Patient was feeling better on reevaluation. Patient was advised of her findings. Patient has a HEART score of 3. Patient was instructed to follow-up with her primary care physician in 5 to 7 days. Patient and family understood and were agreeable with the plan. All questions were answered. Discharge Plan Triage Chief Complaint: Chest Pain ED Provider: Claudio Demarco Dx/Rx/DC Orders Clinical Impression: Chest pain, HTN (hypertension) Instructions: ED Chest Pain, Uncertain Cause Prescriptions: No Action NK Primary Care Provider: Bennett Weir Referrals: Bennett Weir MD [Primary Care Provider, Internal Medicine] - 5-7 Days Print Language: Yoruba Disposition Disposition: Home, Self Care
--- NOTE | 2025-02-12 22:28 | EKG12_ITS ---
Test Reason : CP Blood Pressure : */* mmHG Vent. Rate : 91 BPM Atrial Rate : 91 BPM P-R Int : 162 ms QRS Dur : 78 ms QT Int : 390 ms P-R-T Axes : 4 36 73 degrees QTcB Int : 479 ms Normal sinus rhythm Normal ECG Confirmed by INDIA BILLINGS, JENI ([id number]), brands editor MILLI CASEY ([id number]) on 02/14/2025 7:25:30 AM Referred By: MICHAEL Confirmed By: JENI OSBORNE MD
--- NOTE | 2025-02-12 22:50 | RAD_ITS ---
PROCEDURE: CHEST PA AND LATERAL 02/12/2025 REASON FOR EXAM: CHEST PAIN TECHNIQUE: Procedure Code: RADCXR Modality: DX Procedure: CHEST PA AND LATERAL COMPARISON: 09/29/2024. FINDINGS: Interval appearance of mild left basilar atelectatic pulmonary changes. There is no demonstrated pleural abnormality. Enlarged cardiac silhouette. Normal mediastinum and anton. Normal visualized pulmonary arteries. Atheromatous plaques of the visualized aortic arch and descending thoracic aorta. Diffuse spondylosis of the visualized thoracic spine. Normal visualized ribs, clavicles. Degenerative joint disease. There is no demonstrated abnormality of the visualized soft tissue structures of the upper abdomen. RAD/Chest PA and Lateral IMPRESSION: Interval appearance of mild left basilar atelectatic pulmonary changes. [facility]
[2025-02-12 23:03] LABS: Hematocrit 38.9 % (37-47); Hemoglobin 14.1 g/dL (12.0-15.0); Immature Granulocytes Count 0.110 X10^3/uL (0.0-0.0); Mean Corp Hgb Conc 36.2 g/dL (32-36); Mean Corpuscular Volume 98.7 fL (81-99); Mean Platelet Vol. 9.9 fl (6.2-12.0); NRBC Flagged by Analyzer 0 % (0-5); Platelet Count 225 K/mm3 (150-450); RBC Distribution Width CV 16.1 % (11.6-14.6); RBC Distribution Width SD 47.8 fl (35.1-43.9); Red Blood Count 3.94 M/mm3 (4.2-5.4); White Blood Count 10.2 K/mm3 (4.4-11.0)
[2025-02-12 23:05] VITALS: BP 149/79; PULSE 81; RESP 16; O2SAT 98
--- OUTSIDE RECORDS SUMMARY | 2025-02-12 23:22 | XMS RPT_ITS | CCD ---
Author Organization [facility] Care Team Providers Care Tab Machine Operator Name Role Phone Destin BILLINGS, Bennett Garcia Primary Care Provider Destin BILLINGS, Bennett Garcia Primary Care Provider Antwon RN, Brina Dumont Unavailable RN, Johnna L Unavailable Emily RN, Gay E Unavailable RN, Johnna L Unavailable Emily RN, Gay E Unavailable RN, Johnna L Unavailable Froy RN, Stacy Unavailable Bennett Weir MD Primary Care Provider Froy RN, Stacy Unavailable Katia Fall RN Unavailable Danae RN, Katia Kwon Unavailable Danae RN, Katia Kwon Unavailable Dewayne CAR SALESMAN.AUDIO VISUAL COORDINATOR, Tamiko M Unavailable Dr. Bennett Weir MD Primary Care Provider Dr. Scar Hernandez DO Attending Provider Dr. Scar Hernandez DO Emergency Provider Dr. Ky Ruiz DO Emergency Provider Dr. Ky Ruiz DO Attending Provider Meghan HASKINS Dr. Gopal Emergency Provider [phone] Destin BILLINGS, Dr. Guajardo Primary Care Provider Dr. Gopal Christianson DO Attending Provider Destin BILLINGS, Dr. Guajardo Attending Provider Destin BILLINGS, Dr. Guajardo Referring Provider Gopal Christianson Attending Unavailable Weir, Bennett Primary Care Unavailable Ky Ruiz Attending Unavailable Weir, Bennett Primary Care Unavailable Scar Hernandez Attending Unavailable Weir, Bennett Primary Care Unavailable Weir, Bennett Primary Care Unavailable Weir, Bennett Referring Unavailable Weir, Bennett Attending Unavailable DEWAYNETAMIKO CHEN Referring Unavailable WEIR, MIGUEL Primary Care Unavailable TAMIKO BUCHANAN Attending Unavailable DESTIN, MIGUEL Primary Care Unavailable KIRSTEN LEON Attending Unavailable KIRSTEN LEON Referring Unavailable WEIR, MIGUEL Primary Care Unavailable DAQUAN CHAMPION Attending Unavailable TAMIKO BUCHANAN Referring Unavailable WEIR, BENNETT Garcia Primary Care Unavailable KIRSTEN LEON Referring Unavailable WEIR, BENNETT Garcia Primary Care Unavailable TAMIKO BUCHANAN Attending Unavailable WEIR, MIGUEL Primary Care Unavailable KIRSTEN LEON Attending Unavailable KIRSTEN LEON Referring Unavailable WEIR, MIGUEL Primary Care Unavailable KIRSTEN LEON Referring Unavailable WEIR, MIGUEL Primary Care Unavailable TAMIKO BUCHANAN Attending Unavailable WEIR, MIGUEL Primary Care Unavailable WEIR, MIGUEL Attending Unavailable WEIR, MIGUEL Primary Care Unavailable ELIANA CARRERA Attending Unavailable TAMIKO BUCHANAN Referring Unavailable WEIR, MIGUEL Primary Care Unavailable WEIR, MIGUEL Referring Unavailable WEIR, MIGUEL Primary Care Unavailable WEIR, MIGUEL Referring Unavailable WEIR, MIGUEL Primary Care Unavailable DEWAYNETAMIKO CHEN Attending Unavailable WEIR, MIGUEL Primary Care Unavailable KIRSTEN LEON Referring Unavailable WEIR, MIGUEL Primary Care Unavailable Allergies Allergy Classification Reported Allergen(s) Allergy Type Date of Onset Reaction(s) Facility Cephalosporins (antibiotic) (1 source) Cephalexin Drug Allergy 04-13-20 05 Rash [facility] Fenofibrate (1 source) Fenofibrate Drug Allergy 09-04-19 21 Other: See Comments [facility] HMG-CoA Reductase Inhibitors (statins) (3 sources) rosuvastatin Drug Allergy 06-11-19 13 Other: See Comments, Myalgia [facility] Work Phone: Iodine (and Iodine containting drugs) (1 source) Iodine Drug Allergy 04-09-20 05 Hives, Swelling, Shortness of Breath [facility] Work Phone: [phone] Penicillins (antibiotic) (1 source) Penicillins Drug Allergy 04-11-20 05 Shortness of Breath [facility] Work Phone: [phone] Quinolones (antibiotic) (1 source) Ciprofloxacin Drug Allergy 10-04-19 10 [facility] Sulfonamides (antibiotic) (1 source) Sulfamethoxazole Drug Allergy 10-05-19 10 [facility] Work Phone: (20 sources) atorvastatin; Translations: [ATORVASTATIN CALCIUM] Drug Allergy 03-22-20 15 Myalgia [facility] Work Phone: (20 sources) Cephalexin; Translations: [CEPHALEXIN] Drug Allergy 04-13-20 05 Rash [facility] Work Phone: (20 sources) Ciprofloxacin; Translations: [CIPROFLOXACIN] Drug Allergy 10-04-19 10 [facility] Work Phone: (8 sources) HMG-CoA reductase inhibitor; Translations: [[id number] REDUCTASE INHIBITORS] Drug Intolerance 03-22-20 15 Myalgia [facility] Work Phone: [phone] (20 sources) Iodine; Translations: [IODINE] Drug Allergy 04-09-20 05 Hives, Swelling, Shortness of Breath [facility] Work Phone: [phone] (20 sources) Lovastatin; Translations: [LOVASTATIN] Drug Allergy 01-04-20 15 Myalgia [facility] Work Phone: [phone] (8 sources) Penicillins; Translations: [PENICILLINS] Propensity to adverse reactions 04-11-20 05 Shortness of Breath [facility] Work Phone: (20 sources) rosuvastatin; Translations: [ROSUVASTATIN CALCIUM] Drug Allergy 06-11-19 13 Other: See Comments [facility] Work Phone: (20 sources) Sulfamethoxazole; Translations: [SULFAMETHOXAZOLE] Drug Allergy 10-05-19 10 [facility] Work Phone: (20 sources) Fenofibrate; Translations: [FENOFIBRATE] Drug Allergy 09-04-19 21 Other: See Comments [facility] Comment on above: ELEVATED BP (9 sources) Whmzebk-Vvm-Axb Reductase Inhibitor; Translations: [Jxnkcjx-Yyo-Dxg Reductase Inhibitor] Allergy to substance 10-08-19 22 Rash [facility] (3 sources) ANTIBIOTICS Allergy to substance 10-08-19 22 Shortness of breath [facility] (20 sources) HMG-CoA reductase inhibitor Drug Intolerance 03-22-20 15 Myalgia [facility] Work Phone: (20 sources) Penicillins Propensity to adverse reactions 04-11-20 05 Shortness of Breath [facility] Work Phone: (12 sources) ezetimibe; Translations: [EZETIMIBE] Drug Allergy 08-25-19 25 GI Upset [facility] (11 sources) Penicillins Propensity to adverse reactions 04-11-20 05 Shortness of Breath [facility] Work Phone: (1 source) Fenofibrate Drug Allergy 09-30-19 25 [facility] Repository (1 source) Iodine Drug Allergy 09-30-19 25 [facility] Repository Medications Current Medications Medication Drug Class(es) Dates Sig (Normalized) Sig (Original) aspirin 81 mg delayed release oral tablet (20 sources) Platelet Aggregation Inhibitor, Nonsteroidal Anti-inflammatory Drug Start: 10-31-2023 End: 02-24-2024 take 1 tablet by mouth every other day aspirin, enteric coated (ASPIRIN, ENTERIC COATED) 81 mg EC tablet Take 1 tablet by mouth every other day. 02/24/2024 Active Start: 10-28-2023 End: 09-29-2024 take 1 tablet by mouth once daily at mealtime Aspirin 81 mg Tablet,Chewable Discontinued 81 mg PO DAILY WITH MEALS 0 October 28, 2023 12:00am September 29, 2024 10:54am Start: 05-30-2017 End: 10-13-2017 take 1 tablet by mouth twice daily Aspirin 81 MG tablet,chewable Discontinued 81 mg PO TWICE A DAY May 30, 2017 1:00am October 13, 2017 12:57pm Start: 03-24-2016 End: 11-21-2022 take 1 tablet by mouth every other day aspirin, enteric coated (ASPIR-LOW) 81 mg EC tablet Indications: Mixed hyperlipidemia , Atherosclerosis of arteries Take 1 tablet by mouth every other day. 03/24/2016 11/21/2022 Discontinued (Discontinued by Patient) Comment on above: Take 1 tablet by shiva th every other day. azithromycin 250 mg oral tablet (1 source) Macrolide Antimicrobial Start: 05-07-20 End: 05-12-20 azithromycin (ZITHROMAX Z-TUNDE) 250 mg tablet Indications: Acute upper respiratory infection, unspecified Take 2 tablets day one, then, 1 tablet daily until gone. 6 tablet 0 05/07/2022 05/12/2022 Active Comment on above: Take 2 tablets day o ne, then, 1 tablet daily until gone. lisinopril 10 mg oral tablet (6 sources) Angiotensin Converting Enzyme Inhibitor Start: 08-07-19 End: 08-31-19 take 1 tablet by mouth once daily in the evening lisinopril (ZESTRIL, PRINIVIL) 5 mg tablet Take 1 tablet by mouth every evening. 0 08/06/2021 08/30/2021 Discontinued (Clinical Decision) Start: 08-06-2021 End: 08-30-2021 take 1 tablet by mouth once daily in the morning lisinopril (ZESTRIL, PRINIVIL) 10 mg tablet Indications: Essential hypertension Take 1 tablet by mouth every morning. 90 tablet 1 08/06/2021 08/30/2021 Discontinued (Clinical Decision) Comment on above: Take 1 tablet by shiva th every morning. Take 1 tablet by shiva th every evening. meloxicam 15 mg oral tablet (2 sources) Nonsteroidal Anti-inflammatory Drug Start: End: 023 take 1 tablet by mouth once daily at mealtime meloxicam (MOBIC) 15 mg tablet Indications: Acute pain of right knee Take 1 tablet by mouth once daily for 15 days. With food. 15 tablet 0 04/24/2023 05/09/2023 Active Comment on above: Take 1 tablet by shiva th once daily for 15 days. With food. metoclopramide 5 mg oral tablet (2 sources) Dopamine-2 Receptor Antagonist Start: take 1 tablet by mouth three times daily as needed Metoclopramide Hcl (Reglan) 5 mg tablet Active 5 mg PO 3 TIMES DAILY NEEDED as needed for vertigo September 29, 2024 11:53am Completed/Discontinued Medications Medication Drug Class(es) Dates Sig (Normalized) Sig (Original) acetaminophen 325 mg oral tablet (3 sources) Start: 10-28-2023 End: 09-29-2024 take 1-10 tablets by mouth every four hours as needed for pain Acetaminophen 325 mg Tablet Discontinued 650 mg PO EVERY 4 HOURS NEEDED as needed for Pain 1-10 Or Fever>99.6 0 October 28, 2023 12:00am September 29, 2024 10:54am amLODIPine 5 mg oral tablet (4 sources) Dihydropyridine Calcium Channel Kylah Start: 08-30-2021 End: 09-16-2021 take 1 tablet by mouth once daily amLODIPine (NORVASC) 5 mg tablet Indications: Essential hypertension Take 1 tablet by mouth once daily. 30 tablet 0 08/30/2021 09/16/2021 Discontinued Comment on above: Take 1 tablet by shiva once daily. Benzocaine (1 source) Standardized Chemical Allergen Start: 11-18-2023 End: 11-18-2023 benzocaine 20% 1 [place] (TOPEX) calcium chloride 0.0014 meq/ml / potassium chloride 0.004 meq/ml / sodium chloride 0.103 meq/ml / sodium lactate 0.028 meq/ml injectable solution (1 source) Start: 11-18-2023 End: 11-18-2023 lactated ringers iv infusion esomeprazole 20 mg delayed release oral capsule (6 sources) Proton Pump Inhibitor Start: 08-04-2022 End: 10-27-2023 take 1 capsule by mouth once daily Esomeprazole Magnesium (Nexium) 20 mg capsule,delayed release(DR/EC) Discontinued 20 mg PO DAILY August 04, 2022 12:00am October 27, 2023 9:12pm ezetimibe 10 mg oral tablet (20 sources) Dietary Cholesterol Absorption Inhibitor Start: 06-29-2023 End: 09-29-2024 take 1 tablet by mouth once daily Ezetimibe 10 mg tablet Discontinued 10 mg PO DAILY October 27, 2023 12:00am September 29, 2024 10:54am Comment on above: Take 1 tablet by shiva th once daily. 1 ml fentaNYL 0.05 mg/ml injection (1 source) Opioid Agonist Start: 11-18-2023 End: 11-18-2023 fentaNYL 50 mcg/mL 25-100 mcg injection (SUBLIMAZE) fexofenadine hydrochloride 60 mg oral tablet (20 sources) Histamine-1 Receptor Antagonist End: 01-20-2023 take 1 tablet by mouth every twelve hours as needed fexofenadine (NORY) 60 mg tablet Take 60 mg by mouth twice daily as needed. 01/20/2023 Discontinued (Course of therapy completed) End: 08-30-2021 take 1 tablet by mouth once daily fexofenadine (NORY) 60 mg tablet Take 60 mg by mouth once daily. 0 08/30/2021 Discontinued Comment on above: Take 60 mg by mouth once daily. Take 60 mg by mouth twice daily as needed. levoFLOXacin 750 mg oral tablet (5 sources) Quinolone Antimicrobial Start: 06-19-19 End: 09-30-19 take 1 tablet by mouth once daily Levofloxacin 750 mg tablet Discontinued 750 mg PO DAILY June 19, 2024 1:00am September 29, 2024 10:54am magnesium oxide 300 mg magnesium tab (14 sources) Start: 11-24-19 End: 08-25-19 take 1 tablet by mouth once daily magnesium oxide 300 mg magnesium tab Indications: Ophthalmic migraine Take 1 tablet by mouth once daily. 11/24/2023 08/24/2024 Discontinued (Discontinued by Patient) Start: 11-24-2023 take 1 tablet by shiva th once daily magnesium oxide 300 mg magnesium tab Indications: Ophthalmic migraine Take 1 tablet by mouth once daily. 11/24/2023 Active Start: 11-24-2023 take 1 tablet by shiva th once daily magnesium oxide 300 mg magnesium tab Indications: Ophthalmic migraine Take 1 tablet by mouth once daily. 0 11/24/2023 Active metroNIDAZOLE 500 mg oral tablet (5 sources) Nitroimidazole Antimicrobial Start: 06-20-2024 End: 08-24-2024 take 1 tablet by mouth every twelve hours metroNIDAZOLE (FLAGYL) 500 mg tablet Take 1 tablet by mouth every 12 hours. 06/20/2024 08/24/2024 Discontinued (Course of therapy completed) Start: 06-19-2024 End: 09-29-2024 take 1 tablet by mouth twice daily Metronidazole 500 mg tablet Discontinued 500 mg PO TWICE A DAY 14 June 19, 2024 1:00am September 29, 2024 10:54am 5 ml midazolam 1 mg/ml injection (1 source) Benzodiazepine Start: 11-18-2023 End: 11-18-2023 midazolam 1-5 mg injection (VERSED) omeprazole 20 mg delayed release oral tablet (17 sources) Proton Pump Inhibitor Start: 09-02-2023 End: 02-24-2024 take 1 tablet by mouth once daily before breakfast Omeprazole Magnesium (PRILOSEC OTC) 20 mg tablet Take 1 tablet by mouth daily before breakfast. 1/2 hr before meal. 09/02/2023 02/24/2024 Discontinued (Discontinued by Patient) Comment on above: Take 1 tablet by shiva th daily before breakfast. 1/2 hr before meal. ondansetron 4 mg disintegrating oral tablet (18 sources) Serotonin-3 Receptor Antagonist Start: 10-07-2021 End: 10-04-2024 take 1 tablet by mouth every eight hours as needed for nausea Ondansetron 4 mg tablet,disintegra ting Discontinued 4 mg PO EVERY 8 HOURS NEEDED as needed for Nausea June 19, 2024 1:00am September 29, 2024 10:54am pantoprazole 40 mg delayed release oral tablet (4 sources) Proton Pump Inhibitor Start: 08-14-2023 End: 10-27-2023 take 1 tablet by mouth once daily Pantoprazole (Protonix) 40 mg tablet,delayed release (DR/EC) Discontinued 40 mg PO DAILY August 14, 2023 12:00am October 27, 2023 9:12pm predniSONE 1 mg oral tablet (20 sources) Start: 01-13-2022 End: 02-12-2022 take 1 tablet by mouth once daily predniSONE (DELTASONE) 1 mg tablet Indications: Polymyalgia rheumatica (HCC) Take 1 tablet by mouth once daily. 30 tablet 01/13/2022 01/20/2022 Discontinued (Dosage adjustment) Start: 12-13-2021 End: 02-19-2022 take 1 tablet by mouth once daily predniSONE (DELTASONE) 2.5 mg tablet Indications: Polymyalgia rheumatica (HCC) Take 1 tablet by mouth once daily. 30 tablet 2 01/20/2022 02/19/2022 Active Start: 11-13-2021 End: 12-13-2021 take 1 tablet by mouth once daily predniSONE (DELTASONE) 5 mg tablet Indications: Polymyalgia rheumatica (HCC) Take 1 tablet by mouth once daily. 30 tablet 0 11/13/2021 12/13/2021 Active Start: 10-07-2021 End: 10-27-2023 take 1 tablet by mouth once daily Prednisone 10 mg Tablet Discontinued 10 mg PO DAILY October 07, 2021 12:00am October 27, 2023 9:12pm Start: 09-09-2021 End: 09-16-2021 take 1 tablet by mouth once daily predniSONE (DELTASONE) 10 mg tablet Indications: Polymyalgia rheumatica (HCC) Take 1 tablet by mouth once daily. 30 tablet 2 09/16/2021 Active Comment on above: Take 1 tablet by shiva th once daily. Problems Active Problems Problem Classification Problem Date Documented Da te Episodic/Chronic Anxiety disorders (20 sources) Anxiety about body function or health; Translations: [Other specified anxiety disorders] Onset: 08-30-2021 Chronic Blindness and vision defects (2 sources) Unqualified visual loss, both eyes; Translations: [Unqualified visual loss, both eyes] Onset: 10-14-2024 Chronic Blindness and vision defects (6 sources) Visual disturbance; Translations: [Unspecified visual disturbance] Onset: 10-04-2024 10-31-2023 Episodic Cardiac dysrhythmias (10 sources) Ventricular premature beats; Translations: [Ventricular premature depolarization] 05-10-2019 Chronic Cardiac dysrhythmias (15 sources) Palpitations; Translations: [Palpitations] Episodic Conditions associated with dizziness or vertigo (20 sources) Lightheadedness; Translations: [Dizziness and giddiness] Onset: 10-04-2024 11-22-2020 Episodic Diseases of white blood cells (8 sources) Lymphocytosis; Translations: [Lymphocytosis (symptomatic)] 09-04-2020 Chronic Disorders of lipid metabolism (20 sources) Mixed hyperlipidemia; Translations: [Mixed hyperlipidemia] Onset: 03-24-2016 Resolved: 02-22-2015 03-24-2016 Chronic Essential hypertension (20 sources) Essential hypertension; Translations: [Essential (primary) hypertension] Onset: 07-24-2020 07-24-2020 Chronic Headache; including migraine (1 source) Ophthalmic migraine; Translations: [Migraine with aura, not intractable, without status migrainosus] 11-24-2023 Chronic Headache; including migraine (3 sources) Headache; Translations: [Headache] 11-05-2023 Episodic Heart valve disorders (20 sources) Aortic valve sclerosis; Translations: [Other nonrheumatic aortic valve disorders] Onset: 03-24-2016 03-24-2016 Chronic Intestinal infection (8 sources) Food poisoning; Translations: [Bacterial foodborne intoxication, unspecified] 10-15-2021 Episodic Malaise and fatigue (4 sources) Fatigue; Translations: [Other fatigue] 09-29-2024 Episodic Nausea and vomiting (10 sources) Nausea, vomiting and diarrhea; Translations: [Nausea with vomiting, unspecified] 10-15-2021 Episodic Occlusion or stenosis of precerebral arteries (1 source) Bilateral atherosclerosis of carotid arteries; Translations: [Occlusion and stenosis of bilateral carotid arteries] 10-31-2023 Chronic Open wounds of extremities (1 source) Tear of skin; Translations: [Laceration without foreign body of left forearm, initial encounter] 12-30-2022 Episodic Osteoarthritis (4 sources) Primary gonarthrosis, bilateral; Translations: [Bilateral primary osteoarthritis of knee] Onset: 10-03-2024 08-24-2024 Chronic Other aftercare (1 source) Long-term current use of systemic steroid; Translations: [intermediate card tender (current) use of systemic steroids] Episodic Other [...] without gangrene] Onset: 11-27-2020 11-27-2020 Chronic Other circulatory disease (8 sources) Elevated blood pressure; Translations: [Elevated blood-pressure reading, without diagnosis of hypertension] 09-05-2020 Episodic Other circulatory disease (6 sources) History of transient ischemic attack; Translations: [Personal history of transient ischemic attack (TIA), and cerebral infarction without residual deficits] 02-20-2022 Episodic Other circulatory disease (6 sources) H/O: hypertension; Translations: [Personal history of other diseases of the circulatory system] 02-20-2022 Episodic Other circulatory disease (3 sources) H/O: cardiovascular disease; Translations: [Personal history of other diseases of the circulatory system] 10-27-2023 Episodic Other circulatory disease (3 sources) History of cerebrovascular disease; Translations: [Personal history of transient ischemic attack (TIA), and cerebral infarction without residual deficits] 10-04-2024 Episodic Other circulatory disease (1 source) Personal history of transient ischemic attack (TIA), and cerebral infarction without residual deficits; Translations: [Personal history of transient ischemic attack (TIA), and cerebral infarction without residual deficits] Onset: 10-04-2024 Episodic Other connective tissue disease (1 source) Muscle pain; Translations: [Myalgia, unspecified site] Episodic Other connective tissue disease (4 sources) Pain in left foot; Translations: [Pain in left foot] Episodic Other connective tissue disease (2 sources) Synovial cyst of popliteal space [[place]], left knee; Translations: [Synovial cyst of popliteal space] Onset: 10-03-2024 10-03-2024 Episodic Other ear and sense organ disorders (1 source) Impacted cerumen of bilateral ears; Translations: [Impacted cerumen, bilateral] 07-22-2023 Episodic Other gastrointestinal disorders (1 source) Diarrhea; Translations: [Diarrhea, unspecified] 01-20-2023 Episodic Other gastrointestinal disorders (1 source) Constipation; Translations: [Constipation, unspecified] 06-24-2024 Episodic Other injuries and conditions due to external causes (4 sources) Foreign body in esophagus; Translations: [Unspecified foreign body in esophagus causing other injury, initial encounter] 08-14-2023 Episodic Other lower respiratory disease (2 sources) Rib pain; Translations: [Pleurodynia] Episodic Other nervous system disorders (1 source) Other chronic pain; Translations: [Chronic pain of both knees] Onset: 10-03-2024 Chronic Other nervous system disorders (3 sources) Impairment of balance; Translations: [Other abnormalities of gait and mobility] 10-04-2024 Episodic Other nervous system disorders (1 source) Other abnormalities of gait and mobility; Translations: [Balance problem] Onset: 10-04-2024 Episodic Other non-traumatic joint disorders (10 sources) Pain in right knee; Translations: [Pain in joint, lower leg] Onset: 08-23-2024 04-24-2023 Episodic Other non-traumatic joint disorders (1 source) Pain in left knee; Translations: [Chronic pain of both knees] Onset: 10-03-2024 Episodic Other nutritional; endocrine; and metabolic disorders (20 sources) Obese class I; Translations: [Obesity, unspecified] Onset: 09-27-2018 09-27-2018 Chronic Other screening for suspected conditions (not mental disorders or infectious disease) (1 source) Finding of thyroid gland; Translations: [Abnormal findings on diagnostic imaging of other specified body structures] 06-04-2022 Chronic Other screening for suspected conditions (not mental disorders or infectious disease) (3 sources) Patient encounter status; Translations: [Encounter for screening mammogram for malignant neoplasm of breast] 09-18-2022 Episodic Other upper respiratory infections (1 source) Acute upper respiratory infection; Translations: [Acute upper respiratory infection, unspecified] Episodic Peripheral and visceral atherosclerosis (20 sources) Atherosclerosis of artery ; Translations: [Unspecified atherosclerosis] Onset: 03-24-2016 Resolved: 07-22-2022 03-24-2016 Chronic Residual codes; unclassified (1 source) Influenza-like symptoms; Translations: [Other general symptoms and signs] Episodic Syncope (1 source) Near syncope; Translations: [Syncope and collapse] 07-22-2023 Episodic Thyroid disorders (20 sources) Multinodular goiter; Translations: [Nontoxic multinodular goiter] Onset: 11-08-2019 Resolved: 02-22-2015 11-18-2019 Chronic Transient cerebral ischemia (15 sources) Cerebral ischemia; Translations: [Transient cerebral ischemic attack, unspecified] Onset: 10-28-2024 07-18-2020 Chronic Unclassified (1 source) Chronic pain of both knees 08-24-2024 Past or Other Problems Problem Classification Problem Date Documented Da te Episodic/Chronic Abdominal pain (3 sources) Left sided abdominal pain; Translations: [Unspecified abdominal pain] Onset: 07-09-2024 Episodic Allergic reactions (20 sources) Chronic urticaria; Translations: [Other urticaria] Onset: 03-04-2017 03-04-2017 Episodic Diverticulosis and diverticulitis (20 sources) Diverticulosis of colon; Translations: [Diverticulosis of large intestine without perforation or abscess without bleeding] Onset: 06-03-2005 Resolved: 03-24-2016 02-22-2015 Chronic Esophageal disorders (20 sources) Obstruction of esophagus; Translations: [Esophageal obstruction] Resolved: 03-24-2016 08-12-2022 Chronic Genitourinary symptoms and ill-defined conditions (20 sources) Microscopic hematuria; Translations: [Other microscopic hematuria] Onset: 01-16-2014 Resolved: 02-22-2015 05-10-2019 Episodic Menopausal disorders (20 sources) Postmenopausal bleeding; Translations: [Postmenopausal bleeding] Onset: 06-20-2011 Resolved: 03-24-2016 03-24-2016 Chronic Miscellaneous mental health disorders (20 sources) Anxiety about body function or health; Translations: [Other symptoms and signs involving emotional state] Onset: 08-30-2021 08-30-2021 Episodic Other and unspecified benign neoplasm (20 sources) Benign neoplasm of colon; Translations: [Benign neoplasm of colon, unspecified] Onset: 06-03-2005 06-03-2005 Episodic Other and unspecified benign neoplasm (20 sources) Benign neoplasm of stomach; Translations: [Benign neoplasm of stomach] Onset: 06-03-2005 Resolved: 02-22-2015 02-22-2015 Episodic Other and unspecified benign neoplasm (20 sources) History of polyp of colon; Translations: [Personal history of colonic polyps] Onset: 08-13-2009 Resolved: 02-22-2015 02-22-2015 Episodic Other connective tissue disease (20 sources) Polymyalgia rheumatica; Translations: [Polymyalgia rheumatica] Onset: 09-16-2021 Resolved: 07-23-2022 Chronic Other connective tissue disease (10 sources) Synovitis/tenosynovi tis - wrist; Translations: [Synovitis and tenosynovitis, unspecified] Onset: 01-20-2022 Episodic Other connective tissue disease (20 sources) Synovitis and tenosynovitis, unspecified; Translations: [Other tenosynovitis of hand and wrist] Onset: 01-20-2022 Resolved: 07-23-2022 07-23-2022 Episodic Other gastrointestinal disorders (20 sources) Dysphagia; Translations: [Dysphagia, unspecified] Onset: 11-18-2023 09-02-2023 Episodic Other gastrointestinal disorders (1 source) Constipation, unspecified; Translations: [Constipation, unspecified constipation type] Onset: 06-23-2024 Episodic Residual codes; unclassified (20 sources) Abnormal cytology findings; Translations: [KOLTON favor benign] Onset: 06-20-2011 Resolved: 03-24-2016 03-24-2016 Episodic Screening and history of mental health and substance abuse codes (8 sources) Patient condition resolved; Translations: [Personal history of other mental and behavioral disorders] Onset: 02-24-2024 11-22-2022 Episodic Results Test Name Value Interpretation Reference Range Facility ECHOon 10-31-2024 Echocardiography Echocardiography Report: Transthoracic Echo [facility] Date of service: 10/31/2024 8:00:44 AM ROUGHER Ordering physician: BENNETT WEIR Exam indication: Routine surveillance of mild valvular stenosis (>3yrs) Technologist: Rocio Cruz [facility] Interpreting physician: Silvino Miller MD PATIENT: Name: MRS. DINAH NELSON : 1940 Age: 84 years Gender: F History of hypertension and dyslipidemia. Primary rhythm: sinus. Height: 157.00 cm BSA: 1.77 m Weight: 71.60 kg BMI: 29.0 kg/m Heart rate 87 bpm Blood pressure 162/72 mmHg Color Doppler was utilized to interrogate the cardiac valves assessed and spectral Doppler was utilized to determine the flow velocities and pressure gradients reported in this exam. Myocardial strain analysis was performed in this exam to aid in the assessment of cardiac function. MEASUREMENTS: Value Indexed Normal Max aortic dimension 3.3 cm Ao < 3.8 Left atrial volume 40 ml (biplane A-L) 22 ml/m Alton <= 34 LV ID (diastole) 3.8 cm (2D) 2.13 cm/m LV ID (systole) 2.2 cm (2D) 1.23 cm/m IVS, leaflet tips 1.0 cm (2D) Posterior wall thickness 0.9 cm (2D) Left ventricular mass 102 g (2D) 58 g/m Global peak long strain -17.7 % LV stroke volume 32 ml (2D biplane) LVOT stroke volume 76 ml 44 ml/m LV end diastolic volume 53 ml (2D biplane) 30.2 ml/m 29<=EDVi<62 LV end systolic volume 21 ml (2D biplane) 11.9 ml/m Ejection Fraction 61 % (2D biplane) EF > 54 FINDINGS: LEFT VENTRICLE The left ventricle is normal in size. Left ventricular systolic function is normal. Global LV myocardial strain is normal. Grade I left ventricular diastolic dysfunction. Mitral annular lateral E/e': 9.0. Mitral annular septal E/e': 14.3. Wall Motion: All scored segments are normal. RIGHT VENTRICLE The right ventricle is normal in size. Right ventricular systolic function is normal. RV systolic tissue Doppler velocity is 10.0 cm/s. Tricuspid annular displacement is 1.8 cm. Estimated right ventricular systolic pressure is 28 mmHg consistent with normal pulmonary artery pressures. Estimated right atrial pressure is 3 mmHg (although IVC not seen). LEFT ATRIUM The left atrial cavity is normal in size. RIGHT ATRIUM The right atrial cavity is normal in size. Inferior Vena Cava: The inferior vena cava appears normal measuring 1.6 cm. MITRAL VALVE There is mild mitral annular calcification observed anterior and posterior. There is trace mitral valve regurgitation. There is mild thickening. The pressure half time is 58 msec. The peak mitral E/A ratio is 0.57. The average mitral E/e' ratio is 11.6. The mitral flow deceleration time is 199 msec. TRICUSPID VALVE The tricuspid valve leaflets are structurally normal. There is trace (trace - 1+) tricuspid valve regurgitation. AORTIC VALVE There is mild aortic valve stenosis caused by calcified valve. There is mild (1+) aortic valve regurgitation. Tricuspid aortic valve. There is moderate thickening. There is mild calcification. The peak gradient is 19 mmHg (peak velocity = 220.8 cm/s). The mean gradient is 10 mmHg. The LVOT mean velocity is 88.0 cm/s. The LVOT diameter is 2.0 cm. The aortic VTI is 38.1 cm. The mean velocity in the aortic valve is 147.1 cm/s. The dimensionless valve index is 0.66. AV area is 1.99 cm (1.13 cm /m ) by continuity, VTI. The LVOT stroke volume index is 44 ml/m . PULMONIC VALVE The pulmonic valve cusps are structurally normal. There is trace pulmonic valve regurgitation. AORTA The visualized aorta is normal in size. Measurements - Aortic valve annulus 1.7 cm. Mid ascending aorta 3.1 cm. Distal ascending aorta 3.3 cm. INTERATRIAL SEPTUM There is no evidence of intracardiac shunting as detected by Doppler. PERICARDIUM There is no pericardial effusion. There is an epicardial fat pad. CONCLUSIONS: - Exam indication: Routine surveillance of mild valvular stenosis (>3yrs) - The left ventricle is normal in size. Left ventricular systolic function is normal. EF = 61 5% (2D biplane) Grade I left ventricular diastolic dysfunction. - The right ventricle is normal in size. Right ventricular systolic function is normal. - Prior pk/mn gradients were 22/11 mmHg. - Exam was compared with the prior CC echocardiographic exam performed on 08/10/2023, no significant change in severity of aortic stenosis. * * * Final * * * CC [facility] Image : [id number] amicsSISUID Normal [facility] CNOVon 10-28-2024 CNOV Office Visit (NEURDAX ) DINAH NELSON ([id number]) 1940 F Date Time Provider Department 10/28/24 1:30 PM ELIANA CARRERA During your visit today, we recorded the following information about you: Pulse Blood pressure 91/minute 135/75 Eliana Carrera APRN.AUDIO VISUAL COORDINATOR 10/28/2024 3:44 PM Signed [facility] New Patient Evaluation CHIEF COMPLAINT: Vision changes, dizziness Dinah Nelson is a 84 year old accompanied by her daughter. Consult was requested by Tamiko Buchanan CNP for an opinion regarding above CC. My final impression and recommendations will be communicated back to the requesting physician by way of the shared medical record or fax. October 28, 2024 HPI: Ms. Nelson presents today secondary to issues of multiple concerns. States that eyesight went black and is seeing double vision. Side of faces on L were gone; both eyes. Associated with vertigo; severe dizziness. This happened on September 29. Called EMS and was taken to the ED. States they couldn't find anything. Was at [facility]. Had US carotid at [facility]. No dizziness since. She has had intermittent double vision; side by side. Unsure if resolved with one eye closed. Lasted for a brief flash. Very rare but had occurred a couple times. Happened when moving head. Started a few weeks prior. Saw ophthalmology and was told all looked good. Did have one episode when full vision was lost; completely black. Resolved about one minute. Also had hospitalization in 10/2023; daughter provides records where she was taken to [facility] and dx with possible migraine. MRI brain done in 10/2023. The next day was when she had vision loss in each eye. No slurred or garbled speech. No focal weakness; some generalized weakness. No loss of sensation. States she was shaking d/t fear. + dizziness/lightheaded ness. Has been chronic for many years. Most of the time is lightheadedness. Has gone to the ED No seizure hx. No stroke. States she was told this was possibly a TIA. Taking ASA 81mg three times weekly. Has been on and off for years but was not taking when event occurred. Was taking zetia; no longer taking this d/t SE. Cannot take statins. Not taking any other medications. Did have a choking episode where she was taken to the ED. States sometimes she has times where she feels like she is going to pass out; BP has been shivam high. High BP only during episodes. Was on BP medication for period of time. Reacted to BP medication. LDL 149. Occasional frontal headache but rare. KIRBY with weather changes. Possible ophthalmic migraines. No other past neurological hx. No family neuro hx. Past Diagnostic Results (Brain MRI and CT and carotid US provided by pt's daughter via cell phone): - (10/2023) Brain MRI: Small white matter hyperintensities consistent with mild chronic ischemic changes. - (10/2023) Carotid Ultrasound: Mild bilateral stenosis (<50%). - (10/2023) Brain CT: Unremarkable. - (08/2023) LDL: 149 mg/dL. - (2020) LDL: 187 mg/dL. Alcohol: Denies Tobacco: Denies Drug: Denies PAST MEDICAL HISTORY Diagnosis Date Aortic valve sclerosis 03/24/2016 Aortic valve stenosis, mild 08/15/2023 Atherosclerosis of arteries 03/24/2016 Benign meningioma of brain (HCC) 11/08/2019 Benign neoplasm of colon Benign neoplasm of stomach Cataract Both eyes COVID-19 05/07/2022 Diverticulitis Diverticulosis 04/15/2011 Dysplasia of cervix 1988 Esophageal reflux Lipoma of skin and subcutaneous tissue of neck 11/08/2019 right posterior neck Mixed hyperlipidemia 03/24/2016 Polymyalgia rheumatica (HCC) 09/16/2021 PVD (peripheral vascular disease) with claudication 07/27/2020 Raynaud's phenomenon without gangrene 11/27/2020 Thyroid nodule 11/08/2019 Unspecified hypothyroidism PAST SURGICAL HISTORY Procedure Laterality Date APPENDECTOMY BIOPSY CERVIX SINGLE/MULT/EXCISION OF LESION SPX CATARACT SURGERY, COMPLEX 05/25/2010 CHOLECYSTECTOMY Cholecystectomy COLONOSCOPY FLX DX W/COLLJ SPEC WHEN PFRMD 06/03/2005 Colonoscopy with bx COLONOSCOPY FLX DX W/COLLJ SPEC WHEN PFRMD 06/03/2005 Colonoscopy with polypectomy COLONOSCOPY FLX DX W/COLLJ SPEC WHEN PFRMD 08/13/2009 Colonoscopy-repeat in 3 years (-2012) COLSC FLX W/RMVL OF TUMOR POLYP LESION SNARE TQ 11/07/2014 hyperplastic polyp - 5 year follow up - h/o polyps ESOPHAGOGASTRODUODENO SCOPY TRANSORAL DIAGNOSTIC 05/30/2005 EGD ESOPHAGOGASTRODUODENO SCOPY TRANSORAL DIAGNOSTIC 10/2023 LAPAROSCOPIC HEMICOLECTOMY Right 05/25/2005 LEEP PROCEDURE (CUT AND COVER LINE WORKER DEPT)_*[place] 05/25/1988 Current Outpatient Medications on File Prior to Visit Medication Sig aspirin, enteric coated (ASPIRIN, ENTERIC COATED) 81 mg EC tablet Take 1 tablet by mouth every other day. No current facility-administered medications on file prior to visit. Social History Tobacco Use Smoking status: Never Smokeless t (more content not included)... Normal [facility] Carotid Duplex Ultrasoundon 10-26-2024 Carotid Duplex Ultrasound [facility] [address] [place] [address] Carotid Duplex Ultrasound 10/26/24 1004 MR#: [id number] Acct: [id number] Name: DINAH NELSON Rep #: [id number] : 1940 84 From: Franky Hernandez MD Attending Dr: Dr. Bennett Weir MD Status: REG CLI Ordering Dr: Bennett Weir MD Date: 10/26/24 Location: [facility] Sex: F C Admitted: Reason For Study Reason For Study: Vertigo Rt. Velocities/BP Lt. Velocities/BP Prox CCA 102.3/11.4 cm/sec. Prox CCA 110.1/17 cm/sec. Mid CCA 114.6/16.3 cm/sec. Mid CCA 121.1/13.3 cm/sec. Dist CCA 77.7/13.9 cm/sec. Dist CCA 80.9/13.3 cm/sec. Prox ICA 67.9/11.4 cm/sec. Prox ICA 99.2/18.8 cm/sec. Mid ICA 72.8/17.6 cm/sec. Mid ICA 119.3/31.6 cm/sec. Dist ICA 97.4/21.2 cm/sec. Dist ICA 119.3/29.8 cm/sec. Rt. ICA/CCA = 0.85. Lt. ICA/CCA = 0.99. Prox ECA 118.2/7.7 cm/sec. Prox ECA 152.1/9.7 cm/sec. Rt. Vert. 42.1/9 cm/sec. Lt. Vert. 42.8/8.8 cm/sec. Right Extracranial There is homogeneous, smooth atherosclerotic plaque noted in the right common carotid artery. There is homogeneous, smooth atherosclerotic plaque noted in the right internal carotid artery. There is intimal thickening but no significant atherosclerotic plaque noted in the right external carotid artery. Antegrade flow is noted in the right vertebral artery. Left Extracranial There is heterogeneous, irregular atherosclerotic plaque noted in the left common carotid artery. There is heterogeneous, irregular atherosclerotic plaque noted in the left internal carotid artery. There is heterogeneous, irregular atherosclerotic plaque noted in the left external carotid artery. Antegrade flow is noted in the left vertebral artery. Procedure Carotid Duplex 42957. This is a Carotid Duplex examination using B-mode, color flow and specral Doppler. Exam performed in department. VL/Carotid Duplex Ultrasound Interpretation Summary Mild (<50%) stenosis right extracranial internal carotid. Mild (<50%) stenosis left extracranial internal carotid. Flow within the vertebral arteries is antegrade bilaterally. Ordering Physician: Bennett Weir Referring Physician: Bennett Weir Performed By: Constance Shen Bonita 10/26/241916 Date Franky Hernandez MD CC: Dr. Bennett Weir MD Date Dictated: 10/26/24 1004 Date Transcribed: 10/26/241916 Timber Cruiser: Signed Normal [facility] Duplex ultrasound of carotid artery reportOrdered By: Franky Hernandez on 10-26-2024 Study report [facility] [address] [place] [address] Carotid Duplex Ultrasound 10/26/24 100 MR#: [id number] Acct: [id number] Name: DINAH NELSON Rep #:[id number] : 1940 84 From: Franky Hernandez MD Attending Dr: Dr. Bennett Weir MD Status: REG CLI Ordering Dr: Bennett Weir MD Date: 10/26/24 Location: [facility] Sex: F C Admitted: Reason For Study Reason For Study: Vertigo Rt. Velocities/BP Lt. Velocities/BP Prox CCA 102.3/11.4 cm/sec. Prox CCA 110.1/17 cm/sec. Mid CCA 114.6/16.3 cm/sec. Mid CCA 121.1/13.3 cm/sec. Dist CCA 77.7/13.9 cm/sec. Dist CCA 80.9/13.3 cm/sec. Prox ICA 67.9/11.4 cm/sec. Prox ICA 99.2/18.8 cm/sec. Mid ICA 72.8/17.6 cm/sec. Mid ICA 119.3/31.6 cm/sec. Dist ICA 97.4/21.2 cm/sec. Dist ICA 119.3/29.8 cm/sec. Rt. ICA/CCA = 0.85. Lt. ICA/CCA = 0.99. Prox ECA 118.2/7.7 cm/sec. Prox ECA 152.1/9.7 cm/sec. Rt. Vert. 42.1/9 cm/sec. Lt. Vert. 42.8/8.8 cm/sec. Right Extracranial There is homogeneous, smooth atherosclerotic plaque noted in the right common carotid artery. There is homogeneous, smooth atherosclerotic plaque noted in the right internal carotid artery. There is intimal thickening but no significant atherosclerotic plaque noted in the right external carotid artery. Antegrade flow is noted in the right vertebral artery. Left Extracranial There is heterogeneous, irregular atherosclerotic plaque noted in the left common carotid artery. There is heterogeneous, irregular atherosclerotic plaque noted in the left internal carotid artery. There is heterogeneous, irregular atherosclerotic plaque noted in the left external carotid artery. Antegrade flow is noted in the left vertebral artery. Procedure Carotid Duplex 85731. This is a Carotid Duplex examination using B-mode, color flow and specral Doppler. Exam performed in department. VL/Carotid Duplex Ultrasound Interpretation Summary Mild (<50%) stenosis right extracranial internal carotid. Mild (<50%) stenosis left extracranial internal carotid. Flow within the vertebral arteries is antegrade bilaterally. Ordering Physician: Bennett Weir Referring Physician: Bennett Weir Performed By: Constance Shen, T 10/26/241916 Date _ Franky Hernandez MD CC: Dr. Bennett Weir MD ~ Date Dictated: 10/26/241003 Date Transcribed: 10/26/241916 Timber Cruiser: Signed [facility] Other Phone: [employer] 10-18-2024 CNPN Telephone (AUREA) DINAH NELSON ([id number]) 1940 F Date Time Provider Department 10/18/24 BENNETT WEIR [facility] During your visit today, we recorded the following information about you: Shanon Curtis RDMS 10/18/2024 2:08 PM Signed May we please have carotid vascular lab orders placed. US Carotid Arteries [facility] Thank you very much! Mikaela Gray RDMS, MA 10/18/2024 4:06 PM Signed Original order was placed for US carotid artry [facility] but when scheduling pss advised needed change to US due to vas lab availability. ERICA Estrella Elizabeth, MA 10/18/2024 4:36 PM Signed US department advised they do not do carotid only dvt instead of vasc. Referral plsced to see if we can do at [facility] sooner. Email sent to rome moraes to see if clearance needed ERICA Estrella Jessica 10/19/2024 7:03 AM Signed US in [place] does not currently do Carotid US however there are openings in [place] today 10/19/2024 if patient is willing to travel. If not, we will need to cancel the US Carotid scheduled at [facility] since Carotids are not currently performed in Radiology in [place]. Stacy Michel, Mikaela Bertrand MA 10/19/2024 2:10 PM Signed Referral approved an patient notified can do at [facility]. Appointment canceled for US an referral/order faxed to [facility] an patient aware to call and schedule Mikaela Felton MA Allergies As of Date: 10/18/2024 Noted Allergy Reaction LOVASTATIN 01/03/2015 17 - Myalgia Comments: Severe myalgia, gi upset, [id number] REDUCTASE INHIBIT*03/22/2015 17 - Myalgia CRESTOR (ROSUVASTATIN [...] PENICILLINS 04/11/2005 12 - Shortness of Breath ZETIA (EZETIMIBE) 08/24/2024 8 - GI Upset Date Reviewed: 10/14/2024 Reviewed by: Mikaela Felton MA - Fully Assessed Reason for Visit: Orders [681] Prescriptions as of 10/19/2024 - aspirin, enteric coated (ASPIRIN, ENTERIC COATED) 81 mg EC tablet Take 1 tablet by mouth every other day. Meds Comments as of 07/20/2023: 07/20/23 Patient reports she does not take any medications, has not filled the cholesterol medication yet. Melissa Le RN 01/20/23 Patient reports no changes to current medications. Chrystal Hicks RN Problem List As Of Date 10/18/2024 Noted Resolved HYPOTHYROIDISM NOS [E03.9] 02/22/2015 HYPERLIPIDEMIA NEC/NOS [E78.5] 02/22/2015 Esophageal reflux [K21.9] 03/24/2016 Benign neoplasm of stomach [D13.1] 06/03/2005 02/22/2015 BENIGN NEOPLASM LG BOWEL [D12.6] 06/03/2005 Diverticulosis of colon (without mention of hem*06/03/2005 02/22/2015 Personal history of colonic polyps [Z86.0100] 08/13/2009 02/22/2015 Diverticulitis [K57.92] 11/13/2009 04/15/2011 Diverticulosis [K57.90] 04/15/2011 03/24/2016 PMB (postmenopausal bleeding) [N95.0] 06/20/2011 03/24/2016 KOLTON favor benign [BOY2375] 06/20/2011 03/24/2016 Hematuria [R31.9] 01/16/2014 02/22/2015 Mixed hyperlipidemia [E78.2] 03/24/2016 Atherosclerosis of arteries [I70.90] 03/24/2016 07/22/2022 Aortic valve stenosis, mild [I35.0] 08/15/2023 Chronic urticaria [L50.8] 03/04/2017 Obesity, Class I, BMI 30-34.9 [E66.811] 09/27/2018 Multiple thyroid nodules [E04.2] 11/08/2019 Essential hypertension [I10] 07/24/2020 PVD (peripheral vascular disease) with claudica*07/27/2020 Raynaud's phenomenon without gangrene [I73.00] 11/27/2020 Anxiety about health [R45.89] 08/30/2021 Polymyalgia rheumatica (HCC) [M35.3] 09/16/2021 07/23/2022 Synovitis of wrist [M65.939] 01/20/2022 07/23/2022 Dysphagia [R13.10] 11/18/2023 Encounter Status:Closed by MIKAELA FELTON on 10/19/24 [facility] CNOVon 10-14-2024 CNOV Office Visit (INTMWS ) LESLIEDINAH BOLES ([id number]) 1940 F Date Time Provider Department 10/14/24 11:20 AM BENNETT WEIR INTMWS During your visit today, we recorded the following information about you: Pulse Respiration Blood pressure Weight 80/minute 16/minute 126/80 71.6 kg Height 1.57 m Bennett Weir MD 10/14/2024 1:49 PM Signed This note was created using [employer]. Subjective Patient presents with: Recheck Dinah is a 84-year-old female, with a history of TIA and aortic stenosis, presenting for follow-up after an ER visit for headache, dizziness, weakness, and fatigue. Dinah was seen in the ER on September 29 for an episode of dizziness, weakness, and fatigue. A brain CT showed no acute findings, and a chest x-ray showed no acute disease. Laboratory results were unremarkable, with no indication of UTI or leukocytosis. EKG was normal. She was prescribed metoclopramide TID PRN for nausea and vertigo. She was evaluated by our nurse practitioner on October 04, reporting improvement in symptoms but also giving a history of transient visual disturbance or loss of vision around September 30. She was referred to neurology for symptoms, with a personal history of TIA. The neurology consultation is scheduled for October 28, and she is also scheduled for physical therapy starting on October 24. On September 30, she was evaluated by Dr. Rahman at the [facility] for bilateral visual loss. No acute findings were noted, and she was advised to continue taking aspirin 81 mg daily and to return to the ER for recurrent symptoms. She has a history of TIA with no recent carotid imaging and a history of aortic stenosis, with the last echocardiogram on file from 2023. Review of Systems Constitutional: Negative for fatigue. Eyes: Negative for visual disturbance. Respiratory: Negative for shortness of breath. Cardiovascular: Negative for chest pain, palpitations and leg swelling. Gastrointestinal: Negative. Musculoskeletal: Positive for arthralgias. Neurological: See HPI ACTIVE PROBLEM LIST Benign Neoplasm of Colon Mixed Hyperlipidemia Aortic Valve Stenosis, Mild Chronic Urticaria Obesity, Class I, Bmi 30-34.9 Multiple Thyroid Nodules Essential Hypertension Pvd (Peripheral Vascular Disease) With Claudication Raynaud's Phenomenon Without Gangrene Anxiety About Health Dysphagia Current Outpatient Medications Medication Sig aspirin, enteric coated (ASPIRIN, ENTERIC COATED) 81 mg EC tablet Take 1 tablet by mouth every other day. No current facility-administered medications for this visit. Objective BP 126/80 Pulse 80 Resp 16 Ht 157 cm (5' 1.81) Wt 71.6 kg (157 lb 13.6 oz) SpO2 98% BMI 29.05 kg/m? Physical Exam Constitutional: General: She is not in acute distress. Eyes: Extraocular Movements: Extraocular movements intact. Conjunctiva/sclera: Conjunctivae normal. Neck: Vascular: No carotid bruit. Cardiovascular: Rate and Rhythm: Normal rate and regular rhythm. Heart sounds: S1 normal and S2 normal. Murmur heard. Systolic murmur is present with a grade of 1/6. Comments: ULSB murmur Pulmonary: Breath sounds: Normal breath sounds. Musculoskeletal: Right lower leg: No edema. Left lower leg: No edema. Neurological: General: No focal deficit present. Mental Status: She is alert. Assessment and Plan 1. Vision loss, bilateral - ICD9: 369.3, ICD10: H54.3 (primary diagnosis) Amaurosis fugax vs. Ophthalmic migraine. - US CAROTID BILATERAL 2. Vertigo - ICD9: 780.4, ICD10: R42 Improved. - US CAROTID ARTERIES [facility] - US CAROTID BILATERAL 3. Aortic valve stenosis, mild - ICD9: 424.1, ICD10: I35.0 Recheck. - ECHO - PERFLUTREN LIPID MICROSPHERES 1.1 MG/ML INJECTION IN NS 10 ML - SODIUM CHLORIDE 0.9 % (FLUSH) INJECTION SYRINGE Patient indicated understanding and willingness to follow recommendations. Bennett Weir MD Allergies As of Date: 10/14/2024 Noted Allergy Reaction LOVASTATIN 01/03/2015 17 - Myalgia Comments: Severe myalgia, gi upset, [id number] REDUCTASE INHIBIT*03/22/2015 17 - Myalgia CRESTOR (ROSUVASTATIN [...] PENICILLINS 04/11/2005 12 - Shortness of Breath ZETIA (EZETIMIBE) 08/24/2024 8 - GI Upset (more content not included)... Normal [facility] CNOVon 10-04-2024 CNOV Office Visit (INTMWS ) DINAH NELSON ([id number]) 1940 F Date Time Provider Department 10/04/24 11:20 AM TAMIKO BUCHANAN INTMWS During your visit today, we recorded the following information about you: Pulse Respiration Blood pressure Weight 80/minute 14/minute 116/80 71.5 kg Tamiko Buchanan, CAR SALESMAN.AUDIO VISUAL COORDINATOR 10/04/2024 11:41 AM Addendum We discussed your recent ER visit and follow-up care: - You were seen in the ER on September 29 for dizziness, weakness, and fatigue. Your workup, including a CT scan, EKG, lab tests, and chest X-ray, was unremarkable. You were discharged with a prescription for Reglan as needed for nausea, but you have not needed to take it. We discussed your vision changes: - You experienced a brief episode of vision loss where part of your vision was missing in both eyes. This lasted less than 10 minutes and has not recurred. Your eye doctor did not find any abnormalities during your exam. - I recommended a referral to a neurologist to evaluate whether this could be related to your nervous system or brain. This referral has been placed, and you can decide to pursue it if you wish. We discussed your balance issues: - You have had balance problems for years, which sometimes worsen. You use a cane for stability and have not had any recent falls. - I recommended physical therapy to help improve your balance and reduce your risk of falls. A referral has been placed, and you can schedule this if you decide to proceed. I encourage you to consider this, as falls can lead to serious complications. Next steps: - Referrals have been placed for both a neurologist and physical therapy. You can contact our office if you decide to pursue either of these options. - Please monitor your symptoms, and let us know if you experience any new or worsening issues, such as dizziness, vision changes, or falls. If you have any questions or concerns, feel free to reach out. Tamiko Buchanan, CAR SALESMAN.[facility] 10/04/2024 11:46 AM Signed CC: Patient presents with: ER F/U: Dizziness, abdominal pain- lower middle, diarrhea HPI Recording using hiogi software for draft documentation of the visit was discussed with the patient/authorized tax representative; all questions welcomed and answered. Patient/authorized tax representative agreed to proceed Dinah is a 84-year-old female, with a history of vertigo and TIA, presenting for an ER follow-up. Dinah presented to the ER on 09/29 with a 2-day history of weakness, fatigue, and dizziness described as the room spinning. The dizziness worsened on the morning of 09/29 and was associated with nausea. She was evaluated by her eye doctor the day before, and the exam was negative. ER workup included an EKG, which was unremarkable, and a CT brain, which was normal for her age. Lab workup was also unremarkable, with a WBC count of 10.5, hemoglobin 15.3, hematocrit 43.2, platelets 237, sodium 140, potassium 4.1, BUN 16, and creatinine 0.71. Urinalysis was completely negative. Chest x-ray showed no active cardiopulmonary disease. She was discharged home with a prescription for Reglan as needed for nausea. Since the ER visit, Dinah reports an episode of split vision, where the left side of objects appeared missing in both eyes, described as a giant silver spider web. This episode occurred the evening after the ER visit and lasted less than 10 minutes. She returned to her eye doctor, who found no abnormalities. She denies any further episodes of split vision, dizziness, vertigo, or nausea since the ER visit. She also denies any associated symptoms such as cephalalgia during the vision episode. Dinah has a history of similar symptoms years ago, including a TIA with unremarkable workups. She reports a longstanding issue with balance, feeling like she is leaning to the left while walking, which has been present for years and sometimes worsens. She uses a cane mostly for balance. She denies any recent falls due to vertigo or feeling off balance. She also reports longstanding palpitations, with no new or worsening episodes. Dinah is currently taking baby aspirin every 3 days and was unable to tolerate statins. She is not taking Zofran or Reglan. She monitors her blood pressure at home but reports that her device does not register correctly. She denies any chest pain or dyspnea. Review of Systems Constitutional: Negative for chills, diaphoresis, fatigue and fever. Neurological: Negative for seizures, syncope, facial asymmetry, speech difficulty, weakness and numbness. PAST MEDICAL HISTORY Diagnosis Date Aortic valve sclerosis 03/24/2016 Aortic valve stenosis, mild 08/15/2023 Atherosclerosis of arteries 03/24/2016 Benign meningioma of brain (HCC) 11/08/2019 Benign neoplasm of colon Benign neoplasm of stomach Cataract Both eyes COVID-19 05/07/2022 Diverticulitis Div (more content not included)... Normal [facility] CNOVon 10-03-2024 CNOV Office Visit (ORTHWS ) DINAH NELSON ([id number]) 1940 F Date Time Provider Department 10/03/24 1:15 PM DAQUAN CHAMPION During your visit today, we recorded the following information about you: Daquan Champion MD 10/03/2024 1:39 PM Signed Daquan Champion MD Department of Orthopaedics Orthopaedics [address] [facility] [address] Dept: [phone] Dept October 03, 2024 CHIEF COMPLAINT: New and Pain of the Left Knee and New and Pain of the Right Knee Dinah is an 84-year-old female presenting for evaluation of knee pain. HPI Patient here today for bilateral knee pain. Has no pain today, but reports she becomes more painful as the day goes on. The left leg swells. Was at [place] ED on 08/19/2024. Knee Pain: - Reports moderate arthritis in the right knee with a bone spur under the patella. - Pain localized to the anterior and medial aspects of the knee. - Diagnosed with a Sibley's cyst in the left knee, measuring 5 cm in August. - Denies current interest in cortisone injections or use of a knee brace. - Currently using Tylenol for pain management; has not tried Voltaren gel. - Allergic to multiple medications, including antihypertensives, statins, and antibiotics. Dizziness: - Recent ED visit on the for dizziness, which has since improved. ASSESSMENT: M17.0 Primary osteoarthritis of both knees M25.561, M25.562, G89.29 Chronic pain of both knees M71.22 Synovial cyst of popliteal space (Sibley), left knee 1. Primary osteoarthritis of both knees (M17.0) 2. Chronic pain of both knees (M25.561) 3. Synovial cyst of popliteal space (Sibley), left knee (M71.22) - X-rays show moderate osteoarthritis in the right knee with good joint space preservation and a small osteophyte under the patella. Left knee has a 5 cm Sibley's cyst noted in August, which appears smaller on palpation today. - Physical exam reveals mild tenderness along the medial joint line, neutral alignment, and stable ligaments with varus and valgus stress. Range of motion lacks a few degrees of terminal extension, flexion to 125 degrees. No significant swelling or effusion observed. - Discussed the benign nature of the Sibley's cyst, which may resolve spontaneously. - Provided patient with a simple quadriceps strengthening program consisting of four exercises to be performed daily to improve knee support and reduce pain. - Recommended use of Voltaren gel, applied topically to the medial aspect of the knee 2-3 times daily as needed for pain management. - Advised on the potential use of ice or heat for symptomatic relief. - Discussed intra-articular corticosteroid and hyaluronic acid injections as future options if pain persists or worsens. - Patient understands and agrees with the treatment plan. Will continue to monitor patient for Primary osteoarthritis of both knees Chronic pain of both knees Synovial cyst of popliteal space (sibley), left knee, patient to schedule visit as per follow up discussed. FOLLOW UP INSTRUCTIONS: As needed OBJECTIVE: Ms. Dinah Nelson is a pleasant 84 year old in no apparent distress. Gen:There were no vitals taken for this visit. nl development, non obese, no deformities ENT: Normocephalic, normal hearing, moist mucosa CV: capillary refill < 2 secs, no peripheral edema/varicosities Skin: no rash, bruising or lesions. Good turgor. Psych: cooperative and appropriate, alert and oriented x 3, good mood and affect. Musculoskeletal: - Musculoskeletal: - Left Knee: - No obvious swelling or effusion; palpable fullness in the popliteal fossa consistent with a Sibley's cyst; mild tenderness to palpation along the medial joint line; neutral alignment. - ROM: Lacks a few degrees of terminal extension, flexion to 125 degrees. - Ligamentous stability with varus and valgus stress. - Neurological: Patient ambulates well without antalgia, uses a cane. IMAGING: Labs: Tests: Imaging: (09/05) Ultrasound (Left Knee): Sibley's cyst measuring 5 cm in the popliteal fossa. X-ray (Bilateral Knees): Moderate degenerative changes in the right knee, mild degenerative changes in the left knee, and a bone spur behind the patella. Supporting Subjective Information Below: Past Medical History: PAST MEDICAL HISTORY Diagnosis Date Aortic valve sclerosis 03/24/2016 Aortic valve stenosis, mild 08/15/2023 Atherosclerosis of arteries 03/24/2016 Benign meningioma of brain (HCC) 11/08/2019 Benign neoplasm of colon Benign neoplasm of stomach Cataract Both eyes COVID-19 05/07/2022 Diverticulitis Diverticulosis 04/15/2011 Dysplasia of cervix 1989 Esophageal reflux Lipoma of skin and subcutaneous tissue of neck 11/08/2019 right posterior neck Mixed hyperlipidemia 03/24/2016 Polymyalgia rheumatica (HCC) 09/16/2021 PVD (peripheral vascular disease) with cla (more content not included)... Normal [facility] Absolute lymphocyte countOrd ered By: Gopal Christianson on 09-29-2024 Lymphocytes Auto (Unsp spec) [#/Vol] 1.82 10*3/uL 0.83-4.51 [facility] Absolute neutrophil countOrd ered By: Gopal Christianson on 09-29-2024 Neutrophils (Bld) [#/Vol] 7.8 10*3/uL High 2.0-7.7 [facility] Activated partial thrombopla stin time (aPTT) in platelet poor plasma by coagulation aOrdered By: Gopal Christianson on 09-29-2024 aPTT Coag (PPP) [Time] 26.8 s 24.1-36.[address] [facility] Anion gap in Serum or Plasma Ordered By: Gopal Christianson on 09-29-2024 Anion gap [Moles/Vol] 9 mmol/L 5-15 [facility] Automated lymphocyte count a s percentage of total leukocytesOrdered By: Gopal Christianson on 09-29-2024 Lymphocytes/100 WBC Auto (Unsp spec) 17.3 % Low 19-41 [facility] BUN/creatinine ratioOrdered By: Gopal Christianson on 09-29-2024 Urea nitrogen/Creatinine [Mass ratio] 22.9 mg/mg High 10-20 [facility] Basic Metabolic Profile (BMP )on 09-29-2024 BUN/CRE 22.9 RATIO High 03-13 [facility] Comment on above: Performed By: #### L 500.2500, L300.3900, L300.4310, L100.0100 ####[facility] [address] [place], [address] Calcium [Mass/Vol] 9.5 mg/dL Normal 7.6-11.0 [facility] Comment on above: Performed By: #### L 500.2500, L300.3900, L300.4310, L100.0100 ####[facility] [address] [place], [address] Chloride [Moles/Vol] 106 mmol/L Normal 98-108 [facility] Comment on above: Performed By: #### L 500.2500, L300.3900, L300.4310, L100.0100 ####[facility] [address] [place], [address] CO2 [Moles/Vol] 24.4 mmol/L Normal 21.0-32.0 [facility] Comment on above: Performed By: #### L 500.2500, L300.3900, L300.4310, L100.0100 ####[facility] [address] [place], [address] Creatinine [Mass/Vol] 0.71 mg/dL Normal 0.70-1.20 [facility] Comment on above: Performed By: #### L 500.2500, L300.3900, L300.4310, L100.0100 ####[facility] [address] [place], [address] ECRCL 47.32 ml/min Low 50-250 [facility] Comment on above: Performed By: #### L 500.2500, L300.3900, L300.4310, L100.0100 ####[facility] [address] [place], [address] GAP 9 Normal 5-15 [facility] Comment on above: Performed By: #### L 500.2500, L300.3900, L300.4310, L100.0100 ####[facility] [address] [place], [address] GFR/1.73 sq M.predicted among non-blacks MDRD (S/P/Bld) [Vol rate/Area] 83 mL/min/{1.73_m2} Normal >60 [facility] Comment on above: Result Comment: mL/m in/1.73m2 CKD-EPI Creatinine Equation (2020) Performed By: #### L 500.2500, L300.3900, L300.4310, L100.0100 ####[facility] [address] [place], [address] Glucose [Mass/Vol] 119 mg/dL High 70-99 [facility] Comment on above: Performed By: #### L 500.2500, L300.3900, L300.4310, L100.0100 ####[facility] [address] [place], [address] Potassium [Moles/Vol] 4.1 mmol/L Normal 3.3-5.1 [facility] Comment on above: Performed By: #### L 500.2500, L300.3900, L300.4310, L100.0100 ####[facility] [address] [place], [address] Sodium [Moles/Vol] 140 mmol/L Normal 133-145 [facility] Comment on above: Performed By: #### L 500.2500, L300.3900, L300.4310, L100.0100 ####[facility] [address] [place], [address] Urea nitrogen [Mass/Vol] 16 mg/dL Normal 4-19 [facility] Comment on above: Performed By: #### L 500.2500, L300.3900, L300.4310, L100.0100 ####[facility] [address] [place], [address] Basophil percentageOrdered B y: Gopal Christianson on 09-29-2024 Basophils/100 WBC (Bld) 0.7 % 0-1 [facility] Bilirubin Test strip Ql (U)O rdered By: Gopal Christianson on 09-29-2024 Bilirubin Ql (U) Negative Negative [facility] Brain/Head without Contrasto n 09-29-2024 Brain/Head without Contrast [facility] Imaging Services [address] [place] [address] Brain/Head without Contrast MR#: [id number] Acct: [id number] Name: DINAH NELSON Rep #: [id number] : 1940 F 84 From: Claudio Garza MD PCP: Dr. Bennett Weir MD Status: REG ER Study: Brain/Head without Contrast Date of Exam: 01/16 Exam# [id number] Ordering Dr: Gopal Christianson DO PROCEDURE: BRAIN/HEAD WITHOUT CONTRAST 09/29/2024 REASON FOR EXAM: VERTIGO TECHNIQUE: Contiguous axial scans of 3.75 mm slice thicknesses with sagittal and coronal reconstruction images. One or more dose reduction techniques were utilized (e.g., automated exposure control, adjustment of mA and/or kv according to patient size, use of iterative reconstruction technique). RADIATION DOSE SUMMARY: DLP: 745.49 mGycm COMPARISON: 10/27/2023 CT brain. FINDINGS: Cerebrum: No intraparenchymal hemorrhage. No abnormal areas of encephalomalacia. No mass effect or midline shift. [place]-white matter differentiation is normal. Ventricles and cisterns: Appropriate size for patient's age. Extra-axial fluid: Unremarkable. Posterior fossa: Unremarkable cerebellum. No abnormalities involving the brainstem. Paranasal sinuses: Normal. Vasculature: Unremarkable. Mastoid air cells: unremarkable. Calvarium: Mild hyperostosis frontalis interna. Soft tissues: Unremarkable. . CT/Brain/Head without Contrast IMPRESSION: NO ACUTE FINDINGS. Reading Location: [facility] CC: Dr. Gopal Christianson DO; Dr. Bennett Weir MD Timber Cruiser: Signed Normal [facility] CBC W/Diff, Automatedon Absolute Lymph 1.82 X10 3/uL Normal 0.83-4.51 [facility] Comment on above: Performed By: #### L 500.2500, L300.3900, L300.4310, L100.0100 #### [facility] [address] [place], [address] Absolute Neut 7.8 X10 3/uL High 2.0-7.7 [facility] Comment on above: Performed By: #### L 500.2500, L300.3900, L300.4310, L100.0100 #### [facility] [address] [place], [address] Basophils/100 WBC (Bld) 0.7 % Normal 0-1 [facility] Comment on above: Performed By: #### L 500.2500, L300.3900, L300.4310, L100.0100 #### [facility] [address] [place], [address] Eosinophils/100 WBC (Bld) 0.7 % Normal 0-5 [facility] Comment on above: Performed By: #### L 500.2500, L300.3900, L300.4310, L100.0100 #### [facility] [address] [place], [address] Erythrocyte distribution width (RBC) [Ratio] 15.1 % High 11.6-14.6 [facility] Comment on above: Performed By: #### L 500.2500, L300.3900, L300.4310, L100.0100 #### [facility] [address] [place], [address] Hematocrit (Bld) [Volume fraction] 43.2 % Normal 37-47 [facility] Comment on above: Performed By: #### L 500.2500, L300.3900, L300.4310, L100.0100 #### [facility] [address] [place], [address] Hemoglobin (Bld) [Mass/Vol] 15.3 g/dL High 12.0-15.0 [facility] Comment on above: Performed By: #### L 500.2500, L300.3900, L300.4310, L100.0100 #### [facility] [address] [place], [address] IG% 0.900 Normal 0.0-0.9 [facility] Comment on above: Result Comment: IG% - Immature Granulocytes (promyelocytes, myelocytes and metamyelocytes) > 1% indicates that a LEFT SHIFT is Present. Performed By: #### L 500.2500, L300.3900, L300.4310, L100.0100 #### [facility] [address] [place], [address] Lymphocytes/100 WBC (Bld) 17.3 % Low 19-41 [facility] Comment on above: Performed By: #### L 500.2500, L300.3900, L300.4310, L100.0100 #### [facility] [address] [place], [address] MCH (RBC) [Entitic mass] 34.2 pg High 27.0-32.0 [facility] Comment on above: Performed By: #### L 500.2500, L300.3900, L300.4310, L100.0100 #### [facility] [address] [place], [address] MCHC (RBC) [Mass/Vol] 35.4 g/dL Normal 32-36 [facility] Comment on above: Performed By: #### L 500.2500, L300.3900, L300.4310, L100.0100 #### [facility] [address] [place], [address] MCV (RBC) [Entitic vol] 96.6 fL Normal 81-99 [facility] Comment on above: Performed By: #### L 500.2500, L300.3900, L300.4310, L100.0100 #### [facility] [address] [place], [address] Monocytes/100 WBC (Bld) 6.0 % Normal 0-10 [facility] Comment on above: Performed By: #### L 500.2500, L300.3900, L300.4310, L100.0100 #### [facility] [address] [place], [address] Neutrophils/100 WBC (Bld) 74.4 % High 47-70 [facility] Comment on above: Performed By: #### L 500.2500, L300.3900, L300.4310, L100.0100 #### [facility] [address] [place], [address] Nucleated RBC (Bld) [#/Vol] 0 10*3/uL Normal 0-5 [facility] Comment on above: Performed By: #### L 500.2500, L300.3900, L300.4310, L100.0100 #### [facility] [address] [place], [address] Platelet mean volume (Bld) [Entitic vol] 9.7 fL Normal 6.2-12.0 [facility] Comment on above: Performed By: #### L 500.2500, L300.3900, L300.4310, L100.0100 #### [facility] [address] [place], [address] Platelets (Bld) [#/Vol] 237 10*3/uL Normal 150-450 [facility] Comment on above: Performed By: #### L 500.2500, L300.3900, L300.4310, L100.0100 #### [facility] [address] [place], [address] RBC (Bld) [#/Vol] 4.47 10*6/uL Normal 4.2-5.4 [facility] Comment on above: Performed By: #### L 500.2500, L300.3900, L300.4310, L100.0100 #### [facility] [address] [place], [address] RDW SD 46.1 fl High 35.1-43.9 [facility] Comment on above: Performed By: #### L 500.2500, L300.3900, L300.4310, L100.0100 #### [facility] [address] [place], [address] WBC (Bld) [#/Vol] 10.5 10*3/uL Normal 4.4-11.0 [facility] Comment on above: Performed By: #### L 500.2500, L300.3900, L300.4310, L100.0100 #### [facility] [address] [place], [address] Carbon dioxide, total [Moles /volume] in Central venous bloodOrdered By: Gopal Christianson on 09-29-2024 CO2 [Moles/Vol] 24.4 mmol/L 21.0-32.0 [facility] Chest PA and Lateralon 09-29 Chest PA and Lateral [facility] Imaging Services [address] [place] [address] Chest PA and Lateral MR#: [id number] Acct: [id number] Name: DINAH NELSON Rep #: [id number] : 1940 F 84 From: Claudio Garza MD PCP: Dr. Bennett Weir MD Status: [facility] ER Study: Chest PA and Lateral Date of Exam: 09/29/24 Exam# [id number] Ordering Dr: Gopal Christianson DO PROCEDURE: CHEST PA AND LATERAL 09/29/2024 REASON FOR EXAM: COUGH TECHNIQUE: Frontal and lateral views of the chest. COMPARISON: 10/27/2023 FINDINGS: Lungs: Lungs clear of pneumonia and congestion. Pleura: No pleural effusions, thickening, or pneumothorax. Heart: Normal in size and configuration. Mediastinum/Ashleigh: Unremarkable. Great vessels: Unremarkable. Bones/soft tissues: Unremarkable. RAD/Chest PA and Lateral IMPRESSION: No active cardiopulmonary disease. Reading Location: [facility] CC: Dr. Gopal Christianson DO; Dr. Bennett Weir MD Timber Cruiser: Signed Normal [facility] Chloride assayOrdered By: Zi Christianson on 09-29-2024 Chloride [Moles/Vol] 106 mmol/L 98-108 [facility] Emergency Department Summary on 09-29-2024 Emergency Department Summary [facility] Medical Records Department [address] [place] [address] Emergency Department Summary 09/29/24 MR#: [id number] Acct: [id number] Name: DINAH NELSON Rep #: [id number] : 1940 84 From: Gopal Victoria PCP: Dr. Bennett Weir MD Status:DEP ER Location: ED HPI History of Present Illness Chief Complaint: Dizziness Informant: patient and family Narrative Narrative: Presents here with daughter for evaluation weakness and fatigue started 2 days ago. Yesterday morning had transient dizziness with spinning. It went away. She has she went to her eye doctor yesterday for evaluation and negative eye exam. Patient went to bed around 10 PM and felt dizziness, awakened around 6 AM worsening dizziness with room spinning. Nausea secondary to this. No headaches. She has had vertigo years ago. She has had a TIA years ago with similar symptoms. She does not take any daily medicines currently. However notes from records hypertension hyperlipidemia. She ambulates with a cane due to her osteoarthritis of the left knee. No cough. No vomiting. Had 1 loose stool yesterday nonbloody. Is tolerating oral fluids. She does have chronic tinnitus. Prior similar symptoms: Yes [facility] Medical History Diverticulitis Carotid stenosis Anxiety GERD (gastroesophageal reflux disease) Fibromyalgia Hyperlipidemia Hypertension Home Medications ???Medication ???Instructions ???Recorded ???Last Taken ???Type metoclopramide HCl 5 mg tablet 5 mg PO TID PRN PRN vertigo #20 Unknown Rx (Reglan) tabs Allergy/AdvReac Type Severity Reaction Status Date / Time iodine Allergy Shortness Verified 09/29/24 09:00 of breath Edzfifg-IIO-KyF Reductase Allergy Rash Verified 09/29/24 09:00 Inhibitor (Mshjjth-Vfc-Stj Reductase Inhibitor) fenofibrate (From Tricor) AdvReac Other Verified 09/29/24 09:00 Family History Mother Heart disease Father Heart disease Surgical History S/P partial resection of colon Social History household members: none housing: house Smoking Status: Never smoker alcohol intake: never substance use type: does not use ROS ROS ED Constitutional Constitutional ED: Denies chills, fever(s) or sweats ENT ENT ED: Denies sore throat Cardiovascular Cardiovascular: Denies chest pain, leg edema, palpitations or racing heartbeat Respiratory/Chest Respiratory/Chest: Denies cough, dyspnea or dyspnea on exertion Gastrointestinal Gastrointestinal: Reports nausea; Denies abdominal pain, diarrhea or vomiting Genitourinary Genitourinary ED: Denies dysuria, hematuria or urinary frequency Musculoskeletal Musculoskeletal: Denies back pain, extremity pain or neck pain Integumentary Denies rash or wounds Neurologic Neurologic: Reports other Details: Dizziness ; Denies headache(s), paresthesias or weakness EXAM Physical Exam Const Vital Signs: 09/29/24 08:57 09/29/24 11:37 09/29/24 12:02 Temperature 99 F 97.5 F L Temperature Source Oral Pulse Rate 74 77 77 Respiratory Rate 22 H 15 15 Blood Pressure 164/73 H 143/67 H 143/67 H Blood Pressure Mean 103 92 92 Pulse Ox 98 98 98 Oxygen Delivery Method Room Air Positive well nourished and well developed General Appearance ED: well developed and NAD HEENT Reports moist mucous membranes HEENT Narrative: Cerumen noted right external canal. Left TM normal. normocephalic and atraumatic Eyes Eyes Narrative: No nystagmus of the eyes. General Eye ED: Yes normal appearance of both eyes Neck full ROM Chest Wall inspection of chest normal and palpation of chest normal Chest: Negative for tenderness Resp normal respiratory effort and normal air movement Effort and Inspection: symmetric chest movement; Negative for respiratory distress Cardio regular rate, regular rhythm and no murmurs Peripheral Pulses: pulses 2+ throughout GI normal to inspection, nondistended, normoactive bowel sounds and non-tender Palpation: Negative for guarding or rebound tenderness present Extremity normal to inspection General Extremety ED: Negative for edema or tenderness General Extremity: Negative for edema Neuro oriented x3, CN's II-XII intact bilaterally and no sensory deficits noted Neuro Narrative: NIH of 0. Cerebellar upper and lower intact. Berwyn-Hallpike negative bilaterally. Sensorium / Orientation: awake and alert Skin no rashes or lesions noted and no wounds MDM MDM MDM Narrative Medical decision making narrative: Interventions / MDM: Differential diagnosis: Vertigo Diagnosis considered but do not suspect: Intracranial h (more content not included)... Normal [facility] Eosinophil percentageOrdered By: Gopal Christianson on 09-29-2024 Eosinophils/100 WBC (Bld) 0.7 % 0-5 [facility] Erythrocyte distribution wid th ratioOrdered By: Gopal Christianson on 09-29-2024 Erythrocyte distribution width (RBC) [Ratio] 15.1 % High 11.6-14.6 [facility] Erythrocyte distribution wid th standard deviationOrdered By: Gopal Christianson on 09-29-2024 Erythrocyte distribution width (RBC) [Ratio] 46.1 fl High 35.1-43.9 [facility] Glomerular filtration rate ( GFR) estimation/1.73 sq m using serum, plasma, or whole bOrdered By: Gopal Christianson on 09-29-2024 GFR/1.73 sq M.predicted among non-blacks MDRD (S/P/Bld) [Vol rate/Area] 83 mL/min/{1.73_m2} >60 [facility] Comment on above: mL/min/1.73m2 CKD-EP I Creatinine Equation (2020) Hematocrit Auto (Bld) [Volum e fraction]Ordered By: Gopal Christianson on 09-29-2024 Hematocrit (Bld) [Volume fraction] 43.2 % 37-47 [facility] Hemoglobin measurementOrdere d By: Gopal Christianson on 09-29-2024 Hemoglobin (Bld) [Mass/Vol] 15.3 g/dL High 12.0-15.0 [facility] Immature granulocytes/100 WB C Auto (Bld)Ordered By: Gopal Christianson on 09-29-2024 Immature granulocytes/100 WBC (Bld) 0.900 % 0.0-0.9 [facility] Comment on above: IG% - Immature Granu locytes (promyelocytes, myelocytes and metamyelocytes) > 1% indicates that a LEFT SHIFT is Present. International normalized rat io (INR) calculationOrdered By: Gopal Christianson on 09-29-2024 INR Coag (Bld) [Relative time] 1.0 {INR} [facility] Ketones Test strip Ql (U)Ord ered By: Gopal Christianson on 09-29-2024 Ketones Ql (U) Negative Negative [facility] MCV (mean corpuscular volume ) determinationOrdered By: Gopal Christianson on 09-29-2024 MCV (RBC) [Entitic vol] 96.6 fL 81-99 [facility] Mean corpuscular hemoglobin (MCH) determinationOrdered By: Gopal Christianson on 09-29-2024 MCH (RBC) [Entitic mass] 34.2 pg High 27.0-32.0 [facility] Mean corpuscular hemoglobin concentration (MCHC) determinationOrdered By: Gopal Christianson on 09-29-2024 MCHC (RBC) [Mass/Vol] 35.4 g/dL 32-36 [facility] Mean platelet volume determi nationOrdered By: Gopal Christianson on 09-29-2024 Platelet mean volume (Bld) [Entitic vol] 9.7 fL 6.2-12.0 [facility] Microscopic analysis of urin e for red blood cells (RBC)Ordered By: Gopal Christianson on 09-29-2024 Microscopic analysis of urine for red blood cells (RBC) 0-5 SEEN /hpf 0-5 [facility] Monocyte percentageOrdered B y: Gopal Christianson on 09-29-2024 Monocytes/100 WBC (Bld) 6.0 % 0-10 [facility] Mucus LM Ql (Urine sed)Order ed By: Gopal Christianson on 09-29-2024 Mucus Ql (Urine sed) 0 SEEN /hpf [facility] Neutrophil percentageOrdered By: Gopal Christianson on 09-29-2024 Neutrophils/100 WBC (Bld) 74.4 % High 47-70 [facility] Nitrite Test strip Ql (U)Ord ered By: Gopal Christianson on 09-29-2024 Nitrite Ql (U) Negative Negative [facility] Nucleated red blood cell per centageOrdered By: Gopal Christianson on 09-29-2024 Nucleated RBC/100 WBC (Bld) [Ratio] 0 % 0-5 [facility] Partial Thromboplast Timeon 09-29-2024 aPTT Coag (Bld) [Time] 26.8 s Normal 24.1-36.[address] [facility] Comment on above: Performed By: #### L 500.2500, L300.3900, L300.4310, L100.0100 #### [facility] [address] [place], [address] Platelet countOrdered By: Zi Christianson on 09-29-2024 Platelets (Bld) [#/Vol] 237 10*3/uL 150-450 [facility] Potassium measurement (mass/ volume)Ordered By: Gopal Christianson on 09-29-2024 Potassium (Unsp spec) [Mass/Vol] 4.1 mmol/L 3.3-5.1 [facility] Protein Test strip Ql (U)Ord ered By: Gopal Christianson on 09-29-2024 Protein Ql (U) Negative Negative [facility] Prothrombin Time w/INRon INR Coag (PPP) [Relative time] 1.0 {INR} Normal [facility] Comment on above: Performed By: #### L 500.2500, L300.3900, L300.4310, L100.0100 #### [facility] [address] [place], [address] PT Coag (PPP) [Time] 13.1 s Normal 11.7-14.9 [facility] Comment on above: Performed By: #### L 500.2500, L300.3900, L300.4310, L100.0100 #### [facility] [address] [place], [place], [id number] Prothrombin timeOrdered By: Gopal Christianson on 09-29-2024 PT Coag (PPP) [Time] 13.1 s 11.7-14.9 [facility] RBC Auto (Bld) [#/Vol]Ordere d By: Gopal Christianson on 09-29-2024 RBC (Bld) [#/Vol] 4.47 10*6/uL 4.2-5.4 [facility] Serum creatinine measurement (mass/volume)Ordered By: Gopal Christianson on 09-29-2024 Creatinine [Mass/Vol] 0.71 mg/dL 0.70-1.20 [facility] Serum glucose measurement (m ass/volume)Ordered By: Gopal Christianson on 09-29-2024 Glucose [Mass/Vol] 119 mg/dL High 70-99 [facility] Serum or plasma calcium michelle urement (mass/volume)Ordered By: Gopal Christianson on 09-29-2024 Calcium [Mass/Vol] 9.5 mg/dL 7.6-11.0 [facility] Serum or plasma urea nitroge n measurement (mass/volume)Ordered By: Gopal Christianson on 09-29-2024 Urea nitrogen [Mass/Vol] 16 mg/dL 4-19 [facility] Sodium levelOrdered By: Gopal Christianson on 09-29-2024 Sodium [Moles/Vol] 140 mmol/L 133-145 [facility] Squamous epithelial cells de tection in urine sediment by light microscopyOrdered By: Gopal Christianson on 09-29-2024 Epithelial cells.squamous LM Ql (Urine sed) 0-5 SEEN /hpf 5-10 [facility] Urinalysis, Completeon 09-29 RBC 0-5 SEEN Normal 0-5 [facility] Comment on above: Order Comment: CLEAN CATCH Performed By: #### L 400.0001 ####[facility] [id number] [place], [place], [id number] WBC 0-5 SEEN Normal 0-5 [facility] Comment on above: Order Comment: CLEAN CATCH Performed By: #### L 400.0001 ####[facility] [address] [place], [address] EPI,SQUAMOUS 0-5 SEEN Normal 5-10 [facility] Comment on above: Order Comment: CLEAN CATCH Performed By: #### L 400.0001 ####[facility] [address] [place], [address] BACTERIA 0 SEEN Normal None Seen [facility] Comment on above: Order Comment: CLEAN CATCH Performed By: #### L 400.0001 ####[facility] [address] [place], [address] Mucus Ql (Urine sed) 0 SEEN Normal [facility] Comment on above: Order Comment: CLEAN CATCH Performed By: #### L 400.0001 ####[facility] [address] [place], [address] Urine clarityOrdered By: Alejandro Christianson on 09-29-2024 Clarity (U) Clear Clear [facility] Urine color determinationOrd ered By: Gopal Christianson on 09-29-2024 Color (U) Yellow Yellow [facility] Urine glucose detectionOrder ed By: Gopal Christianson on 09-29-2024 Glucose Ql (U) Normal mg/dl Normal [facility] Urine leukocyte esterase det ection by dipstickOrdered By: Gopal Christianson on 09-29-2024 Leukocyte esterase Test strip Ql (U) 100 /ul High Negative [facility] Urine pHOrdered By: Gopal Christianson on 09-29-2024 pH (U) 7.0 [pH] 5.0 - 8.0 [facility] Urine sediment bacteria coun t by microscopy (number/high power field)Ordered By: Gopal Christianson on 09-29-2024 Bacteria LM.HPF (Urine sed) [#/Area] 0 /[HPF] None Seen [facility] Urine specific gravity measu rementOrdered By: Gopal Christianson on 09-29-2024 Specific gravity (U) [Rel density] 1.010 1.002-1.030 [facility] Urine urobilinogen measureme ntOrdered By: Gopal Christianson on 09-29-2024 Urobilinogen Ql (U) Normal mg/dl Normal [facility] White blood cell (WBC) count Ordered By: Gopal Christianson on 09-29-2024 WBC (Bld) [#/Vol] 10.5 10*3/uL 4.4-11.0 [facility] White blood cell countOrdere d By: Gopal Christianson on 09-29-2024 White blood cell count 0-5 SEEN /hpf 0-5 [facility] CNOVon 09-05-2024 CNOV Office Visit (VASSMD ) LESLIEDINAH Rosado ([id number]) 1940 F Date Time Provider Department 09/05/24 1:15 PM KIRSTEN LEON VASD During your visit today, we recorded the following information about you: Pulse Blood pressure 90/minute 138/58 Kirsten Leon, DO 09/05/2024 2:27 PM Signed [facility] [place] DEPARTMENT OF VASCULAR SURGERY OUTPATIENT VISIT DATE September 05, 2024 OUTPATIENT VISIT TYPE ESTABLISHED SERVICE DATE: 09/05/2024 SERVICE TIME: 2:05 PM PRIMARY CARE PHYSICIAN: Bennett Weir MD HISTORY OF PRESENT ILLNESS: Ms. Nelson is a 84 year old female who presents today for a vascular surgery follow-up visit for peripheral arterial disease. States pain is improving from one month ago PAST MEDICAL HISTORY Diagnosis Date Aortic valve sclerosis 03/24/2016 Aortic valve stenosis, mild 08/15/2023 Atherosclerosis of arteries 03/24/2016 Benign meningioma of brain (HCC) 11/08/2019 Benign neoplasm of colon Benign neoplasm of stomach Cataract Both eyes COVID-19 05/07/2022 Diverticulitis Diverticulosis 04/15/2011 Dysplasia of cervix 1989 Esophageal reflux Lipoma of skin and subcutaneous tissue of neck 11/08/2019 right posterior neck Mixed hyperlipidemia 03/24/2016 Polymyalgia rheumatica (HCC) 09/16/2021 PVD (peripheral vascular disease) with claudication 07/27/2020 Raynaud's phenomenon without gangrene 11/27/2020 Thyroid nodule 11/08/2019 Unspecified hypothyroidism PAST SURGICAL HISTORY Procedure Laterality Date APPENDECTOMY BIOPSY CERVIX SINGLE/MULT/EXCISION OF LESION SPX CATARACT SURGERY, COMPLEX 05/25/2010 CHOLECYSTECTOMY Cholecystectomy COLONOSCOPY FLX DX W/COLLJ SPEC WHEN PFRMD 06/03/2005 Colonoscopy with bx COLONOSCOPY FLX DX W/COLLJ SPEC WHEN PFRMD 06/03/2005 Colonoscopy with polypectomy COLONOSCOPY FLX DX W/COLLJ SPEC WHEN PFRMD 08/13/2009 Colonoscopy-repeat in 3 years (-2012) COLSC FLX W/RMVL OF TUMOR POLYP LESION SNARE TQ 11/07/2014 hyperplastic polyp - 5 year follow up - h/o polyps ESOPHAGOGASTRODUODENO SCOPY TRANSORAL DIAGNOSTIC 05/30/2005 EGD ESOPHAGOGASTRODUODENO SCOPY TRANSORAL DIAGNOSTIC 10/2023 LAPAROSCOPIC HEMICOLECTOMY Right 05/25/2005 LEEP PROCEDURE (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 aspirin, enteric coated (ASPIRIN, ENTERIC COATED) 81 mg EC tablet Take 1 tablet by mouth every other day. ALLERGIES: ALLERGIES Allergen Reactions Lovastatin Myalgia Severe myalgia, gi upset, Dfktzmf-Thb-Ort Red* Myalgia Crestor [Rosuvastat* Other: See Comments [...] gen) without rash Penicillins Shortness of Breath Zetia [Ezetimibe] GI Upset PHYSICAL EXAM: BP 138/58 (BP Site: Left Arm, BP Position: Sitting, BP Cuff Size: Regular Adult) Pulse 90 SpO2 98% Gen- no distress Ext- no ulcerations, trace edema, varicose veins, spider veins Diagnostic tests reviewed for today's visit: Most recent labs Most recent imaging PVRs Compared to prior study of 03/29/2024, Ankle brachial index was 1.06, in the right leg and .66, in the left leg, on previous study. RIGHT SIDE Resting right ankle brachial index: 0.97 Borderline abnormal ankle brachial index at rest. Right ankle: Borderline abnormal at rest. LEFT SIDE Resting left ankle brachial index: 0.53 Abnormal ankle brachial index at rest diagnostic of peripheral artery disease. Left ankle: Moderate disease at rest. Arterial Duplex- left distal SFA occlusion with reconstitutions, sibley's cyst IMPRESSION: Ms. Nelson is a 84 year old female with peripheral arterial disease . PLAN and RECOMMENDATIONS: Reviewed studies with patient Recommend continued non-interventional therapy- blood pressure and cholesterol control Follow up in 6 months or sooner with any concerns SIGNATURE: Kirsten Leon DO PATIENT NAME: Dinah Nelson DATE: September 05, 2024 TIME: 2:05 PM Referring Provider: KIRSTEN LEON [[id number]] Allergies As of Date: 09/05/2024 Noted Allergy Reaction LOVASTATIN 01/03/2015 17 - Myalgia Comments: Severe myalgia, gi upset, [id number]-[id number] REDUCTASE INHIBIT*03/22/2015 17 - Myalgia CRESTOR (ROSUVAS (more content not included)... Normal [facility] PVR ANK PRESS UMESH VAS LABon 09-05-2024 PVR ANK PRESS UMESH VAS LAB Non-Invasive Vascular Laboratory [place] [facility] Lower Extremity Arterial Physiology Study Bilateral/Complete Date of service/time: 09/05/2024 12:33:22 PM Name: MRS. DINAH NELSON Date of : 1940 Age: 84 years Gender: F Medical History PAD: Yes Hypertension: Yes Clinical Indication Pain in leg, claudication and peripheral arterial disease. TECHNIQUE -------- An arterial physiological examination was performed, including measurement of blood pressures using continuous wave Doppler and recording of plethysmographic with or without Doppler waveforms at the below-mentioned limb segments. FINDINGS -------- RIGHT SIDE AT REST Right Doppler Waveforms Dorsalis pedis: Multiphasic. Post tibial: Multiphasic. Right Pressures Brachial: 156 mmHg Ankle dorsalis pedis: 160 mmHg DAYSI: 0.97 Ankle posterior tibial: 159 mmHg DAYSI: 0.96 Right PVR Waveforms Ankle: Normal. LEFT SIDE AT REST Left Doppler Waveforms Dorsalis pedis: Monophasic. Post tibial: Monophasic. Left Pressures Brachial: 165 mmHg Ankle dorsalis pedis: 87 mmHg DAYSI: 0.53 Ankle posterior tibial: 78 mmHg DAYSI: 0.47 Left PVR Waveforms Ankle: Moderately dampened. IMPRESSION Compared to prior study of 03/29/2024, Ankle brachial index was 1.06, in the right leg and .66, in the left leg, on previous study. RIGHT SIDE Resting right ankle brachial index: 0.97 Borderline abnormal ankle brachial index at rest. Right ankle: Borderline abnormal at rest. LEFT SIDE Resting left ankle brachial index: 0.53 Abnormal ankle brachial index at rest diagnostic of peripheral artery disease. Left ankle: Moderate disease at rest. Technologist: Teetee Briggs Bonita Ordering physician: KIRSTEN LEON Interpreting physician: Ashok Moore MD, RPVI Final [facility] Image : [id number] amicsSISUID See Link below for Image Normal [facility] LEG ARTERIAL PERIPH UNL V LABon 09-05-2024 LEG ARTERIAL PERIPH UNL VAS LAB Non-Invasive Vascular Laboratory [place] Lower Extremity Arterial Duplex Unilateral - Left Date of service/time: 09/05/2024 12:34:18 PM Name: MRS. DINAH NELSON Date of : 1940 Age: 84 years Gender: F Medical History PAD: Yes Hypertension: Yes Clinical Indication Leg/foot rest pain. TECHNIQUE -------- An arterial duplex ultrasound examination was performed, including grayscale imaging and color Doppler and spectral Doppler examination of the below mentioned arteries. FINDINGS -------- LEFT ARTERIES External iliac distal: PSV: 124 cm/s. EDV: 0 cm/s. Multiphasic waveform. Common femoral mid: PSV: 83 cm/s. EDV: 0 cm/s. Multiphasic waveform. Profunda femoral proximal: PSV: 89 cm/s. EDV: 0 cm/s. Multiphasic waveform. Superficial femoral origin: PSV: 89 cm/s. EDV: 0 cm/s. Multiphasic waveform. Superficial femoral proximal: PSV: 134 cm/s. EDV: 0 cm/s. Monophasic, high resistive waveform. Superficial femoral mid: PSV: 122 cm/s. EDV: 0 cm/s. Monophasic, high resistive waveform. Superficial femoral distal: PSV: 0 cm/s. EDV: 0 cm/s. Absent waveform. Popliteal proximal: PSV: 34 cm/s. EDV: 0 cm/s. Monophasic, high resistive waveform. Popliteal mid: PSV: 24 cm/s. EDV: 0 cm/s. Monophasic, high resistive waveform. Popliteal distal: PSV: 31 cm/s. EDV: 0 cm/s. Monophasic, high resistive waveform. Posterior tibial proximal: PSV: 28 cm/s. EDV: 0 cm/s. Monophasic, high resistive waveform. Posterior tibial mid: PSV: 28 cm/s. EDV: 0 cm/s. Monophasic, high resistive waveform. Posterior tibial distal: PSV: 24 cm/s. EDV: 0 cm/s. Monophasic, high resistive waveform. Peroneal proximal: PSV: 24 cm/s. EDV: 0 cm/s. Monophasic, high resistive waveform. Peroneal mid: PSV: 21 cm/s. EDV: 0 cm/s. Monophasic, high resistive waveform. Peroneal distal: PSV: 21 cm/s. EDV: 0 cm/s. Monophasic, high resistive waveform. Anterior tibial proximal: PSV: 32 cm/s. EDV: 0 cm/s. Monophasic, high resistive waveform. Anterior tibial mid: PSV: 22 cm/s. EDV: 0 cm/s. Monophasic, high resistive waveform. Anterior tibial distal: PSV: 27 cm/s. EDV: 0 cm/s. Monophasic, high resistive waveform. VESSEL/GRAFT Superficial femoral artery distal: PSV: 60 cm/s. EDV: 0 cm/s. Monophasic, high resistive waveform. Tibioperoneal trunk : PSV: 28 cm/s. EDV: 0 cm/s. Monophasic, high resistive waveform. IMPRESSION LEFT SIDE External iliac artery, Common femoral artery, Profunda femoral artery, Popliteal artery, Tibioperoneal trunk, Posterior tibial artery, Peroneal artery and Anterior tibial artery : plaque noted without evidence of hemodynamically significant stenosis . Superficial femoral artery distal: occluded . Collateral flow noted. Superficial femoral artery distal thigh: reconstituted . Non-vascular, complex, cystic structure noted, within the popliteal fossa, measuring 5.29 x 5.66 x 1.87cm. Edema noted at distal calf. Technologist: Teetee Briggs T Ordering physician: KIRSTEN LEON Interpreting physician: Ashok Moore MD, EBONY [facility] Image : [id number] amicsSISUID See Link below for Image Normal [facility] CNOVon 08-29-2024 CNOV Office Visit (VASSMD ) DINAH NELSON ([id number]) 1940 F Date Time Provider Department 08/29/24 2:30 PM KIRSTEN LEON During your visit today, we recorded the following information about you: Pulse Blood pressure 93/minute 154/67 Kirsten Leon, DO 08/29/2024 3:09 PM Signed [facility] [place] DEPARTMENT OF VASCULAR SURGERY OUTPATIENT VISIT DATE August 29, 2024 OUTPATIENT VISIT TYPE ESTABLISHED SERVICE DATE: 08/29/2024 SERVICE TIME: 2:45 PM PRIMARY CARE PHYSICIAN: Bennett Weir MD HISTORY OF PRESENT ILLNESS: Ms. Nelson is a 84 year old female who presents today for a vascular surgery follow-up visit she noticed a pain about a month ago in her leg. States her pain is better currently. She could not tolerate statin and is only taking aspirin. She went to ER secondary to the pain. Denies rest pain or tissue loss. PAST MEDICAL HISTORY Diagnosis Date Aortic valve sclerosis 03/24/2016 Aortic valve stenosis, mild 08/15/2023 Atherosclerosis of arteries 03/24/2016 Benign meningioma of brain (HCC) 11/08/2019 Benign neoplasm of colon Benign neoplasm of stomach Cataract Both eyes COVID-19 05/07/2022 Diverticulitis Diverticulosis 04/15/2011 Dysplasia of cervix 1989 Esophageal reflux Lipoma of skin and subcutaneous tissue of neck 11/08/2019 right posterior neck Mixed hyperlipidemia 03/24/2016 Polymyalgia rheumatica (HCC) 09/16/2021 PVD (peripheral vascular disease) with claudication 07/27/2020 Raynaud's phenomenon without gangrene 11/27/2020 Thyroid nodule 11/08/2019 Unspecified hypothyroidism PAST SURGICAL HISTORY Procedure Laterality Date APPENDECTOMY BIOPSY CERVIX SINGLE/MULT/EXCISION OF LESION SPX CATARACT SURGERY, COMPLEX 05/25/2010 CHOLECYSTECTOMY Cholecystectomy COLONOSCOPY FLX DX W/COLLJ SPEC WHEN PFRMD 06/03/2005 Colonoscopy with bx COLONOSCOPY FLX DX W/COLLJ SPEC WHEN PFRMD 06/03/2005 Colonoscopy with polypectomy COLONOSCOPY FLX DX W/COLLJ SPEC WHEN PFRMD 08/13/2009 Colonoscopy-repeat in 3 years (-2012) COLSC FLX W/RMVL OF TUMOR POLYP LESION SNARE TQ 11/07/2014 hyperplastic polyp - 5 year follow up - h/o polyps ESOPHAGOGASTRODUODENO SCOPY TRANSORAL DIAGNOSTIC 05/30/2005 EGD ESOPHAGOGASTRODUODENO SCOPY TRANSORAL DIAGNOSTIC 10/2023 LAPAROSCOPIC HEMICOLECTOMY Right 05/25/2005 LEEP PROCEDURE (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 aspirin, enteric coated (ASPIRIN, ENTERIC COATED) 81 mg EC tablet Take 1 tablet by mouth every other day. ALLERGIES: ALLERGIES Allergen Reactions Lovastatin Myalgia Severe myalgia, gi upset, Vtxuxae-Zqm-Xbe Red* Myalgia Crestor [Rosuvastat* Other: See Comments [...] gen) without rash Penicillins Shortness of Breath Zetia [Ezetimibe] GI Upset PHYSICAL EXAM: BP 154/67 (BP Site: Left Arm, BP Position: Sitting, BP Cuff Size: Regular Adult) Pulse 93 SpO2 98% Gen- no distress Ext- no ulceration, no significant edema, cooler to touch, palpable dp/pt on right, doppler signals on left dp/pt Diagnostic tests reviewed for today's visit: Most recent labs Most recent imaging PVRs- right 1.06, left 0.66 IMPRESSION: Ms. Nelson is a 84 year old female with peripheral arterial disease . PLAN and RECOMMENDATIONS: Recommend updated arterial duplex and DAYSI due to increased pain from last testing Continue current medications Symptoms are slowly improving and no evidence of limb threatening ischemia SIGNATURE: Kirsten Leon DO PATIENT NAME: Dinah Nelson DATE: August 29, 2024 TIME: 2:45 PM Referring Provider: KIRSTEN LEON [[id number]] Allergies As of Date: 08/29/2024 Noted Allergy Reaction LOVASTATIN 01/03/2015 17 - Myalgia Comments: Severe myalgia, gi upset, NHREPXZ-BVJ-CFB REDUCTASE INHIBIT*03/22/2015 17 - Myalgia CRESTOR (ROSUVASTATIN CALCIUM) 06/11/2012 14 - Other: See Comments Comments: Myalgia, weakness LIPITOR (ATORVASTATIN CALCIUM) 03/22/2015 17 - Myalgia BACTRIM (SULFAMETHOXAZOLE) 10/04/2009 Comments: ? Questionable- thinks may have had upset stomach due to Flagyl CIPRO (CIPROFLOXACIN) 10/03/2009 Comments: unsteady, n (more content not included)... Normal [facility] CNOVon 08-24-2024 CNOV Office Visit (INTMWS ) DINAH NELSON ([id number]) 1940 F Date Time Provider Department 08/24/24 11:20 AM TAMIKO BUCHANAN INTMWS During your visit today, we recorded the following information about you: Pulse Respiration Blood pressure Weight 94/minute 12/minute 118/62 71.4 kg Tamiko Buchanan, CAR SALESMAN.AUDIO VISUAL COORDINATOR 08/24/2024 2:00 PM Signed CC: Patient presents with: ER F/U: Bilateral knee pain/ RT ankle edema HPI Dinah Nelson is a 84 year old female who presents for above. -Bilateral knee pain and right ankle edema: Seen in ED on 08/19 related to right knee pain. X-ray showed no fracture or dislocation. Pjkr-ak-viqddyoy appearing osteoarthrosis of the patellofemoral compartment and mild at the medial compartment. Reports today bilateral knee pain and right ankle edema x 2 months. Pain is intermittent, described as a sharp throbbing to the right posterior knee. States she is unable to put full pressure on either leg due to pain. Tylenol taken and was helping the pain initially but is no longer effective in relieving the pain. Has also tried a heating pad to bilateral knees without much relief. Pain today in office is noted at 0/10.Denies warmth, increased swelling and redness to bilateral lower extremities. Knees do not lock up on her or feel like they may give out. PMH includes PAD and PMR. Review of Systems See HPI PAST MEDICAL HISTORY Diagnosis Date Aortic valve sclerosis 03/24/2016 Aortic valve stenosis, mild 08/15/2023 Atherosclerosis of arteries 03/24/2016 Benign meningioma of brain (HCC) 11/08/2019 Benign neoplasm of colon Benign neoplasm of stomach Cataract Both eyes COVID-19 05/07/2022 Diverticulitis Diverticulosis 04/15/2011 Dysplasia of cervix 1988 Esophageal reflux Lipoma of skin and subcutaneous tissue of neck 11/08/2019 right posterior neck Mixed hyperlipidemia 03/24/2016 Polymyalgia rheumatica (HCC) 09/16/2021 PVD (peripheral vascular disease) with claudication 07/27/2020 Raynaud's phenomenon without gangrene 11/27/2020 Thyroid nodule 11/08/2019 Unspecified hypothyroidism PAST SURGICAL HISTORY Procedure Laterality Date APPENDECTOMY BIOPSY CERVIX SINGLE/MULT/EXCISION OF LESION SPX CATARACT SURGERY, COMPLEX 05/25/2010 CHOLECYSTECTOMY Cholecystectomy COLONOSCOPY FLX DX W/COLLJ SPEC WHEN PFRMD 06/03/2005 Colonoscopy with bx COLONOSCOPY FLX DX W/COLLJ SPEC WHEN PFRMD 06/03/2005 Colonoscopy with polypectomy COLONOSCOPY FLX DX W/COLLJ SPEC WHEN PFRMD 08/13/2009 Colonoscopy-repeat in 3 years (-2012) COLSC FLX W/RMVL OF TUMOR POLYP LESION SNARE TQ 11/07/2014 hyperplastic polyp - 5 year follow up - h/o polyps ESOPHAGOGASTRODUODENO SCOPY TRANSORAL DIAGNOSTIC 05/30/2005 EGD ESOPHAGOGASTRODUODENO SCOPY TRANSORAL DIAGNOSTIC 10/2023 LAPAROSCOPIC HEMICOLECTOMY Right 05/25/2005 LEEP PROCEDURE (CUT AND COVER LINE WORKER DEPT)_*FL 05/25/1988 ALLERGIES Lovastatin, Zsnwpdw-Okw-Eog Reductase Inhibitors, Crestor [Rosuvastatin Calcium], Lipitor [Atorvastatin Calcium], Bactrim [Sulfamethoxazole], Cipro [Ciprofloxacin], Fenofibrate, Ivp Dye [Iodine], Keflex [Cephalexin], Penicillins, and Zetia [Ezetimibe] MEDICATIONS ondansetron orally disintegrating (ZOFRAN ODT) 4 mg disintegrating tablet Take 4 mg by mouth every 8 hours as needed. aspirin, enteric coated (ASPIRIN, ENTERIC COATED) 81 mg EC tablet Take 1 tablet by mouth every other day. FAMILY HISTORY Problem Relation Age of Onset Heart Mother Stroke Mother Heart Father heart attack Social History Tobacco Use Smoking status: Never Smokeless tobacco: Never Vaping Use Vaping status: Never Used Substance Use Topics Alcohol use: No Drug use: No BP 118/62 Pulse 94 Resp 12 Wt 71.4 kg (157 lb 6.5 oz) SpO2 97% BMI 28.56 kg/m? Physical Exam Vitals and nursing note reviewed. Constitutional: General: She is awake. Appearance: Normal appearance. She is well-developed. Cardiovascular: Rate and Rhythm: Normal rate and regular rhythm. Pulses: Normal pulses. Heart sounds: Normal heart sounds. Pulmonary: Effort: Pulmonary effort is normal. Breath sounds: Normal breath sounds. Musculoskeletal: Right knee: Swelling (mild) present. No deformity, effusion or erythema. Normal range of motion. Tenderness present. Left knee: No swelling, deformity, effusion or erythema. Normal range of motion. Tenderness present. Right lower leg: Normal. No swelling or tenderness. Left lower leg: Normal. No swelling or tenderness. Right ankle: Swelling present. No deformity or ecchymosis. No tenderness. Normal range of motion. Left ankle: Normal. Legs: Comments: Right ankle Neurological: Mental Status: She is alert. I have reviewed the patient?s records from [facility] including diagnostic testing performed, their discharge medications, and my assessment and plan with the patient and any family members present at t (more content not included)... Normal [facility] Lipid 1996 panelon 5 Cholesterol [Mass/Vol] 231 mg/dL High <200 Cl [facility] Comment on above: Order Comment: Speci men Type: BLOOD SPECIMENOrdering Facility: [facility] Address: [address] [place] [address] Result Comment: <200 mg/dL, Desirable 200-239 mg/dL, Borderline high >239 mg/dL, High Performed By: #### 2 4331-1 ####[facility] LABCLIA [id number] [address] Cholesterol in HDL [Mass/Vol] 49 mg/dL Normal >39 [facility] Comment on above: Order Comment: Megai men Type: BLOOD SPECIMENOrdering Facility: [facility] Address: [address] [place] [address] Result Comment: 40-5 9 mg/dL, Acceptable >59 mg/dL, High: Negative risk factor for coronary heart disease <40 mg/dL, Low: Positive risk factor for coronary heart disease Performed By: #### 2 4331-1 ####[facility] LABCLIA [id number] [address] Cholesterol in LDL [Mass/Vol] 149 mg/dL High <100 [facility] Comment on above: Order Comment: Xenia [facility] Type: BLOOD SPECIMENOrdering Facility: [facility] Address: [address] [place] [address] Result Comment: <100 mg/dL, Optimal 100-129 mg/dL, Near optimal/above optimal 130-159 mg/dL, Borderline high 160-189 mg/dL, High >189 mg/dL, Very high Secondary prevention optimal LDL Cholesterol levels are recommended to be < 70 mg/dL Performed By: #### 2 4331-1 ####[facility] LABIA [id number] [address] Cholesterol in LDL/Cholesterol in HDL [Mass ratio] 3.04 {ratio} High <2.54 [facility] Comment on above: Order Comment: Xenia oliveira Type: BLOOD SPECIMENOrdering Facility: [facility] Address: [address] [place] [address] Result Comment: Renaldo laurent: 1. National Cholesterol Education Program ATP III Guideline At-A-Glance Quick Desk Reference: National Heart, Lung, and Blood [place]. National Institutes of Health. 2001: NIH Publication No. 01-3305. 2. An International Atherosclerosis Society position paper: global recommendations for the management of dyslipidemia: executive summary, Atherosclerosis. 2014: 232(2):410-413. Performed By: #### 2 4331-1 ####[facility] LABCLIA [id number] [address] [place] [address] [place] Cholesterol in VLDL [Mass/Vol] 33 mg/dL High <30 [facility] Comment on above: Order Comment: Speci men Type: BLOOD SPECIMENOrdering Facility: [facility] Address: [address] [place] [address] Performed By: #### 2 4331-1 ####[facility] LABCLIA [id number] [address], [facility] [place] Cholesterol non HDL [Mass/Vol] 182 mg/dL High <130 [facility] Comment on above: Order Comment: Speci men Type: BLOOD SPECIMENOrdering Facility: [facility] Address: [address] [place] [address] Result Comment: <130 mg/dL, Optimal 130-159 mg/dL, Near optimal/above optimal 160-189 mg/dL, Borderline high 190-219 mg/dL, High >219 mg/dL, Very high Secondary prevention optimal non HDL Cholesterol levels are recommended to be <100 mg/dL Performed By: #### 2 4331-1 ####[facility] LABCLIA [id number] [address] [place] [address] [place] Cholesterol.total/Choles terol in HDL [Mass ratio] 4.71 {ratio} Normal <5.10 [facility] Comment on above: Order Comment: Speci men Type: BLOOD SPECIMENOrdering Facility: [facility] Address: [address] [place] [address] Performed By: #### 2 4331-1 ####[facility] LABCLIA [id number] [address] [place] [address] [place] FASTING TIME 12 hrs Normal [facility] Comment on above: Order Comment: Speci men Type: BLOOD SPECIMENOrdering Facility: [facility] Address: [address] [id number] Performed By: #### 2 4331-1 ####[facility] LABCLIA [id number] [place] [id number] [place] [facility] Triglyceride [Mass/Vol] 164 mg/dL High <150 [facility] Comment on above: Order Comment: Speci men Type: BLOOD SPECIMENOrdering Facility: [facility] Address: [address] [id number] Result Comment: <150 mg/dL, Normal 150-199 mg/dL, Borderline high 200-499 mg/dL, High >499 mg/dL, Very high Performed By: #### 2 4331-1 ####[facility] LABCLIA [id number] [place] [id number] [place] Emergency Department Summary on 08-19-2024 Emergency Department Summary [facility] Medical Records Department [address] [place] [id number] Emergency Department Summary 08/19/24 MR#: [id number] Acct: [id number] Name: DINAH NELSON Rep #: [id number] : 1940 84 From: Ky Ruiz DO PCP: Dr. Bennett Weir MD Status:DEP ER Location: ED HPI History of Present Illness Chief Complaint: Lower Extremity Injury Narrative Narrative: Patient is a 84-year-old female with past medical history of anxiety, fibromyalgia, hypertension, hyperlipidemia who presented to the emergency department the chief complaint of right knee pain. Patient states that she did not have any injury or any inciting events to cause her right knee pain. Patient states that she does rate this of 10 out of 10. States that she has not been taking any thing for pain. Patient notes that just recently she had a similar bout of pain in the left knee but eventually got better on its own. Patient denies any recent travel history denies any history of blood clots. [facility] Medical History Diverticulitis Carotid stenosis Anxiety GERD (gastroesophageal reflux disease) Fibromyalgia Hyperlipidemia Hypertension Home Medications ???Medication ???Instructions ???Recorded ???Last Taken ???Type ezetimibe 10 mg tablet 10 mg PO DAILY 10/27/23 Unknown Hi story acetaminophen 325 mg tablet 650 mg (2 x 325 mg) PO Q4H PRN PRN 10/28/23 Unknown Rx Pain 1-10 Or Fever>99.6 #0 tabs aspirin 81 mg chewable tablet 81 mg PO DAILYCM 30 days #0 tabs 0 10/28/23 Unknown Rx levofloxacin 750 mg tablet 750 mg PO DAILY #7 tabs 06/19/24 U nknown Rx metronidazole 500 mg tablet 500 mg PO BID 7 days #14 tabs 05/26 11/16 Unknown Rx ondansetron 4 mg disintegrating 4 mg PO Q8H PRN PRN Nausea #10 tab s 06/19/24 Unknown Rx tablet Allergy/AdvReac Type Severity Reaction Status Date / Time iodine Allergy Shortness Verified 06/19/24 19:02 of breath Slhnbnd-FMG-KjA Reductase Allergy Rash Verified 06/19/24 19:02 Inhibitor (Eewqsuk-Uiz-Hyi Reductase Inhibitor) fenofibrate (From Tricor) AdvReac Other Verified 06/19/24 19:02 Family History Mother Heart disease Father Heart disease Surgical History S/P partial resection of colon Social History household members: none housing: house Smoking Status: Never smoker alcohol intake: never substance use type: does not use ROS ROS ED ROS Narrative Constitutional: Denies fevers, chills, headaches, lightness, dizziness Cardiovascular: Denies chest pain Respiratory: Denies coughing wheezing shortness of breath Neurological: Denies numbness, weakness, tingling Musculoskeletal: Complains of right knee pain as noted above Skin: Denies rashes or lesions EXAM Physical Exam Narrative Exam Narrative: General: Patient was lying in bed rest comfortably did not appear to be in acute distress Head: Atraumatic, normocephalic Eyes: PERRL bilateral, EOMI bilateral, no conjunctival injection noted Neck: Soft, supple, trachea midline Cardiovascular: Regular rate and rhythm no murmurs gallops rubs noted Respiratory: Clear to auscultation bilaterally no rales rhonchi or wheezes noted Musculoskeletal: Patient has full range of motion of her right knee without any difficulty or pain, compartments are soft compressible, no tenderness palpation of the calf no asymmetric swelling noted on exam the bilateral lower extremities Extremities: +4/5 strength noted in the bilateral upper and lower extremities, DP pulse +2/4 in the bilateral lower extremities no pedal edema noted Neurological: Patient following commands knew that she was at [facility] years 2024 Skin: Warm, dry, tact no rashes or lesions noted Const Vital Signs: 08/19/24 00:30 08/19/24 02:30 08/19/24 03:33 Temperature 98.2 F 98.2 F Temperature Source Oral Pulse Rate 114 H 88 87 Respiratory Rate 16 16 16 Blood Pressure 150/63 H 149/50 H 144/57 H Blood Pressure Mean 92 83 86 Pulse Ox 97 97 95 Oxygen Delivery Method Room Air Room Air MDM MDM MDM Narrative Medical decision making narrative: Patient is a 84-year-old female who presented to the emerged part with a chief complaint of right knee pain. On the differential diagnose includes but not limited to musculoskeletal strain, fracture although feel these are less likely as she had no trauma or injury to the knee, knee osteoarthritis, joint effusion. Once workup is obtained reviewed she will be reevaluated. Patient was ordered Toradol however she refused this and wanted Tylenol which was ordered. I ordered a gram of Tylenol she refused the gram and o (more content not included)... Normal [facility] Knee 4 or More Viewson 08-19 Knee 4 or More Views [facility] Imaging Services [address] [place], [place] [id number] Knee 4 or More Views MR#: [id number] Acct: [id number] Name: DINAH NELSON Rep #: [id number] : 1940 F 84 From: Prasad Varma MD PCP: Dr. Bennett Weir MD Status: REG ER Study: Knee 4 or More Views Date of Exam: 08/19/24 Exam# [id number] Ordering Dr: Ky Ruiz DO PROCEDURE: KNEE 4 OR MORE VIEWS 08/19/2024 REASON FOR EXAM: PAIN, NO INJURY TECHNIQUE: 4 view(s) of the right knee COMPARISON: None available FINDINGS: No fracture or dislocation. Fyhk-aq-dmepdxew appearing osteoarthrosis of the patellofemoral compartment and mild at the medial compartment. Chondrocalcinosis noted lateral compartment. Appearance of joint effusion on the lateral view. Vascular calcifications noted. RAD/Knee 4 or More Views IMPRESSION: No fracture or dislocation. Osteoarthrosis as above with appearance of joint effusion noted. Reading Location: [id number] CC: Dr. Ky Ruiz DO; Dr. Bennett Weir MD Timber Cruiser: Signed [facility] CNOVon 06-23-2024 [facility] Office Visit (INTMWS ) LESLIE,DINAH Rosado ([id number]) 1940 F Date Time Provider Department 06/23/24 2:20 PM TAMIKO BUCHANAN INTMWS During your visit today, we recorded the following information about you: Pulse Respiration Blood pressure Weight 102/minute 16/minute 144/70 73 kg Tamiko Buchanan, CAR SALESMAN.[facility] 06/24/2024 6:52 AM Signed CC: Patient presents with: ER F/U: [facility] diverticulitis/contes tation PATO Guerrerokins is a 84 year old female who presents today for above. Patient presented to [facility] ER on 06/19/24 with LLQ pain x 1 hour. CBC, CMP, urinalysis and lipase were normal. CT scan indicated acute descending and sigmoid colon diverticulitis. She was discharged home with prescriptions for Flagyl and Levaquin. Today she reports she is feeling much better. No further episodes of abdominal pain. Appetite is good despite mild nausea with antibiotics. Fatigue improving. Her main concern today is constipation intermittently x 2 weeks, getting worse. Stools are small and hard, tries not to strain with BM's. Drinks adequate amounts of liquids and gets plenty of fiber in her diet. Denies black/bloody stools, rectal bleeding, painful BM's, fever, chills, vomiting, diarrhea. She is not taking anything for the constipation. PMH: laparoscopic hemicolectomy in 2005. Constipation intermittently x 2 weeks. Last colonoscopy 2014. Review of Systems See HPI PAST MEDICAL HISTORY Diagnosis Date Aortic valve sclerosis 03/24/2016 Aortic valve stenosis, mild 08/15/2023 Atherosclerosis of arteries 03/24/2016 Benign meningioma of [...] SINGLE/MULT/EXCISION OF LESION SPX CATARACT SURGERY, COMPLEX 05/25/2010 CHOLECYSTECTOMY Cholecystectomy COLONOSCOPY FLX DX W/COLLJ SPEC WHEN PFRMD 06/03/2005 Colonoscopy with bx COLONOSCOPY FLX DX W/COLLJ SPEC WHEN PFRMD 06/03/2005 Colonoscopy with polypectomy COLONOSCOPY FLX DX W/COLLJ SPEC WHEN PFRMD 08/13/2009 Colonoscopy-repeat in 3 years (-2012) COLSC FLX W/RMVL OF TUMOR POLYP LESION SNARE TQ 11/07/2014 hyperplastic polyp - 5 year follow up - h/o polyps ESOPHAGOGASTRODUODENO SCOPY TRANSORAL DIAGNOSTIC 05/30/2005 EGD ESOPHAGOGASTRODUODENO SCOPY TRANSORAL DIAGNOSTIC 10/2023 LAPAROSCOPIC HEMICOLECTOMY Right 05/25/2005 LEEP PROCEDURE (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 ezetimibe (ZETIA) 10 mg tablet Take 1 tablet by mouth once daily. levoFLOXacin (LEVAQUIN) 750 mg tablet Take 750 mg by mouth once daily. ondansetron orally disintegrating (ZOFRAN ODT) 4 mg disintegrating tablet Take 4 mg by mouth every 8 hours as needed. aspirin, enteric coated (ASPIRIN, ENTERIC COATED) 81 mg EC tablet Take 1 tablet by mouth every other day. magnesium oxide 300 mg magnesium tab Take 1 tablet by mouth once daily. FAMILY HISTORY Problem Relation Age of Onset Heart Mother Stroke Mother Heart Father heart attack Social History Tobacco Use Smoking status: Never Smokeless tobacco: Never Vaping Use Vaping status: Never Used Substance Use Topics Alcohol use: No Drug use: No BP 144/70 Pulse 102 Resp 16 Wt 73 kg (160 lb 15 oz) SpO2 98% BMI 29.20 kg/m? Physical Exam Vitals reviewed. Constitutional: Appearance: Normal appearance. HENT: Mouth/Throat: Mouth: Mucous membranes are moist. Eyes: Conjunctiva/sclera: Conjunctivae normal. Cardiovascular: Rate and Rhythm: Normal rate and regular rhythm. Pulmonary: Effort: Pulmonary effort is normal. Breath sounds: Normal breath sounds. Abdominal: General: Bowel sounds are increased. There is no distension. Palpations: Abdomen is soft. Tenderness: There is abdominal tenderness (LLQ, mild). There is no guarding or rebound. Skin: General: Skin is warm and dry. Neurological: Mental Status: She is alert. Psychiatric: Mood and Affect: Mood normal. I have reviewed the patient?s records from [facility] including diagnostic testing performed, their discharge medications, and my (more content not included)... Normal [facility] Abdomen/Pelvis without Conto n 06-19-2024 Abdomen/Pelvis without Cont [facility] Imaging Services [address] [place] [address] Abdomen/Pelvis without Cont MR#: [id number] Acct: [id number] Name: DINAH NELSON Rep #: [id number] : 1940 F 84 From: Mitchell cisneros MD PCP: Dr. Bennett Weir MD Status: REG ER Study: Abdomen/Pelvis without Cont Date of Exam: 05/26 11/16 Exam# [id number] Ordering Dr: Scar Hernandez DO [id number] INDICATION: llq abdominal pain EXAMINATION: CT Abdomen And Pelvis W/O Contrast Injection TECHNIQUE: Helically acquired images were obtained of the abdomen and pelvis without the use of IV contrast. A radiation dose optimization technique was used for this scan. Oral contrast: None. COMPARISON: 10/07/2021 FINDINGS: Evaluation of the solid organs and vascular structures is limited without intravenous contrast. Visualized lung bases: Unremarkable Liver: Unremarkable Gallbladder: Not visualized. Spleen: Multiple splenic granulomas. Pancreas: Unremarkable Adrenal Glands: Unremarkable Kidneys: Bilateral parapelvic renal cysts. Vasculature: Severe aortoiliac atherosclerotic disease. GI Tract: Scattered colonic diverticula. There is moderate segment circumferential wall thickening of the descending and sigmoid colon with minimal surrounding fat stranding. No focal fluid collection or free air. Lymphadenopathy: None Peritoneum: No ascites. Bladder: Unremarkable Reproductive organs: Unremarkable Bones/Soft tissues: There are diffuse degenerative changes of the spine. Grade 1 anterolisthesis L4 on L5. CT/Abdomen/Pelvis without Cont IMPRESSION: Acute descending and sigmoid colon diverticulitis. No focal fluid collection or free air. Cannot rule out underlying malignancy. Consider colonoscopy after acute infection has resolved. Electronically Signed: Mitchell Smith MD at 20:50 EST , CC: Dr. Scar Hernandez DO; Dr. Bennett Weir MD Timber Cruiser: Signed Normal [facility] Absolute lymphocyte countOrd ered By: Scar Hernandez on 06-19-2024 Lymphocytes Auto (Unsp spec) [#/Vol] 3.43 10*3/uL 0.83-4.51 [facility] Absolute neutrophil countOrd ered By: Scar Hernandez on 06-19-2024 Neutrophils (Bld) [#/Vol] 5.2 10*3/uL 2.0-7.7 [facility] Automated lymphocyte count a s percentage of total leukocytesOrdered By: Scar Hernandez on 06-19-2024 Lymphocytes/100 WBC Auto (Unsp spec) 35.3 % 19-41 [facility] Basic Metabolic Profile (BMP )on 06-19-2024 BUN/CRE 23.0 RATIO High 10-20 [facility] Comment on above: Performed By: #### L 500.2500, L100.0100, L501.2450, L500.3400 ####[facility] [address] [place], [address] CA,Total 9.6 mg/dL Normal 8.5-10.1 [facility] Comment on above: Performed By: #### L 500.2500, L100.0100, L501.2450, L500.3400 ####[facility] [address] [place], [address] Chloride [Moles/Vol] 110 mmol/L High 98-107 [facility] Comment on above: Performed By: #### L 500.2500, L100.0100, L501.2450, L500.3400 ####[facility] [address] [place], [address] CO2 [Moles/Vol] 26.0 mmol/L Normal 21.0-32.0 [facility] Comment on above: Performed By: #### L 500.2500, L100.0100, L501.2450, L500.3400 ####[facility] [address] [place], [address] Creatinine [Mass/Vol] 0.74 mg/dL Normal 0.55-1.02 [facility] Comment on above: Result Comment: The validity of the calculated GFR GFRAA in patients over 70 years has not been determined. Clinical correlation is essential. Performed By: #### L 500.2500, L100.0100, L501.2450, L500.3400 ####[facility] [address] [place], [address] ECRCL 50.04 ml/min Normal [facility] Comment on above: Performed By: #### L 500.2500, L100.0100, L501.2450, L500.3400 ####[facility] [address] [place], [address] EST GFR - AA 96 mL/min Normal >60 [facility] Comment on above: Result Comment: Afri can Filipino GFR Calc Performed By: #### L 500.2500, L100.0100, L501.2450, L500.3400 ####[facility] [address] [place], [address] GAP 5 Normal 5-15 [facility] Comment on above: Performed By: #### L 500.2500, L100.0100, L501.2450, L500.3400 ####[facility] [address] [place], [address] GFR/1.73 sq M.predicted among non-blacks MDRD (S/P/Bld) [Vol rate/Area] 79 mL/min/{1.73_m2} Normal >60 [facility] Comment on above: Result Comment: Non- GFR Calc Performed By: #### L 500.2500, L100.0100, L501.2450, L500.3400 ####[facility] [address] [place], [address] Glucose [Mass/Vol] 116 mg/dL High 74-106 [facility] Comment on above: Result Comment: Fast ing Glucose result from 100 to 125 mg/dL suggests IMPAIRED HOMEOSTASIS per A.D.A. criteria. Performed By: #### L 500.2500, L100.0100, L501.2450, L500.3400 ####[facility] [address] [place], [address] Potassium [Moles/Vol] 3.9 mmol/L Normal 3.5-5.1 [facility] Comment on above: Performed By: #### L 500.2500, L100.0100, L501.2450, L500.3400 ####[facility] [address] [place], [address] Sodium [Moles/Vol] 142 mmol/L Normal 136-145 [facility] Comment on above: Performed By: #### L 500.2500, L100.0100, L501.2450, L500.3400 ####[facility] [address] [place], [address] Urea nitrogen [Mass/Vol] 17 mg/dL Normal 7-18 [facility] Comment on above: Performed By: #### L 500.2500, L100.0100, L501.2450, L500.3400 ####[facility] [address] [place], [address] Basophil percentageOrdered B y: Scar Hernandez on 06-19-2024 Basophils/100 WBC (Bld) 0.8 % 0-1 [facility] Bilirubin Test strip Ql (U)O rdered By: Scar Hernandez on 06-19-2024 Bilirubin Ql (U) Negative Negative [facility] Bilirubin directOrdered By: Scar Hernandez on 06-19-2024 Bilirubin.direct [Mass/Vol] 0.12 mg/dL 0.00-0.30 [facility] Bilirubin, totalOrdered By: Scar Hernandez on 06-19-2024 Bilirubin [Mass/Vol] 0.30 mg/dL 0.20-1.00 [facility] Comment on above: For patients on eltr ombopag therapy, use of Dimension [place] TBIL is not recommended. Blood urea nitrogen (BUN)/cr eatinine ratioOrdered By: Scar Hernandez on 06-19-2024 Urea nitrogen/Creatinine [Mass ratio] 23.0 mg/mg High 10-20 [facility] CBC W/Diff, Automatedon -2 Absolute Lymph 3.43 X10 3/uL Normal 0.83-4.51 [facility] Comment on above: Performed By: #### L 500.2500, L100.0100, L501.2450, L500.3400 ####[facility] [address] [place], [address] Absolute Neut 5.2 X10 3/uL Normal 2.0-7.7 [facility] Comment on above: Performed By: #### L 500.2500, L100.0100, L501.2450, L500.3400 ####[facility] [address] [place], [address] Basophils/100 WBC (Bld) 0.8 % Normal 0-1 [facility] Comment on above: Performed By: #### L 500.2500, L100.0100, L501.2450, L500.3400 ####[facility] [address] [place], [address] Eosinophils/100 WBC (Bld) 1.5 % Normal 0-5 [facility] Comment on above: Performed By: #### L 500.2500, L100.0100, L501.2450, L500.3400 ####[facility] [address] [place], [address] Erythrocyte distribution width (RBC) [Ratio] 13.7 % Normal 11.6-14.6 [facility] Comment on above: Performed By: #### L 500.2500, L100.0100, L501.2450, L500.3400 ####[facility] [address] [place], [address] Hematocrit (Bld) [Volume fraction] 43.2 % Normal 37-47 [facility] Comment on above: Performed By: #### L 500.2500, L100.0100, L501.2450, L500.3400 ####[facility] [address] [place], [address] Hemoglobin (Bld) [Mass/Vol] 14.7 g/dL Normal 12.0-15.0 [facility] Comment on above: Performed By: #### L 500.2500, L100.0100, L501.2450, L500.3400 ####[facility] [address] [place], [address] IG% 1.100 High 0.0-0.9 [facility] Comment on above: Result Comment: IG% - Immature Granulocytes (promyelocytes, myelocytes and metamyelocytes) > 1% indicates that a LEFT SHIFT is Present. Performed By: #### L 500.2500, L100.0100, L501.2450, L500.3400 ####[facility] [address] [place], [address] Lymphocytes/100 WBC (Bld) 35.3 % Normal 19-41 [facility] Comment on above: Performed By: #### L 500.2500, L100.0100, L501.2450, L500.3400 ####[facility] [address] [place], [address] MCH (RBC) [Entitic mass] 31.7 pg Normal 27.0-32.0 [facility] Comment on above: Performed By: #### L 500.2500, L100.0100, L501.2450, L500.3400 ####[facility] [address] [place], [address] MCHC (RBC) [Mass/Vol] 34.0 g/dL Normal 32-36 [facility] Comment on above: Performed By: #### L 500.2500, L100.0100, L501.2450, L500.3400 ####[facility] [address] [place], [address] MCV (RBC) [Entitic vol] 93.3 fL Normal 81-99 [facility] Comment on above: Performed By: #### L 500.2500, L100.0100, L501.2450, L500.3400 ####[facility] [address] [place], [address] Monocytes/100 WBC (Bld) 8.0 % Normal 0-10 [facility] Comment on above: Performed By: #### L 500.2500, L100.0100, L501.2450, L500.3400 ####[facility] [address] [place], [address] Neutrophils/100 WBC (Bld) 53.3 % Normal 47-70 [facility] Comment on above: Performed By: #### L 500.2500, L100.0100, L501.2450, L500.3400 ####[facility] [address] [place], [address] Nucleated RBC (Bld) [#/Vol] 0 10*3/uL Normal 0-5 [facility] Comment on above: Performed By: #### L 500.2500, L100.0100, L501.2450, L500.3400 ####[facility] [address] [place], [address] Platelet mean volume (Bld) [Entitic vol] 9.7 fL Normal 6.2-12.0 [facility] Comment on above: Performed By: #### L 500.2500, L100.0100, L501.2450, L500.3400 ####[facility] [address] [place], [address] Platelets (Bld) [#/Vol] 231 10*3/uL Normal 150-450 [facility] Comment on above: Performed By: #### L 500.2500, L100.0100, L501.2450, L500.3400 ####[facility] [address] [place], [address] RBC (Bld) [#/Vol] 4.63 10*6/uL Normal 4.2-5.4 [facility] Comment on above: Performed By: #### L 500.2500, L100.0100, L501.2450, L500.3400 ####[facility] [address] [place], [address] RDW SD 46.5 fl High 35.1-43.9 [facility] Comment on above: Performed By: #### L 500.2500, L100.0100, L501.2450, L500.3400 ####[facility] [address] [place], [address] WBC (Bld) [#/Vol] 9.7 10*3/uL Normal 4.4-11.0 [facility] Comment on above: Performed By: #### L 500.2500, L100.0100, L501.2450, L500.3400 ####[facility] [address] [place], [address] Carbon dioxide measurementOr dered By: Scar Hernandez on 06-19-2024 CO2 [Moles/Vol] 26.0 mmol/L 21.0-32.0 [facility] Chloride measurementOrdered By: Scar Hernandez on 06-19-2024 Chloride [Moles/Vol] 110 mmol/L High 98-107 [facility] Emergency Department Summary on 06-19-2024 Emergency Department Summary [facility] Medical Records Department [address] [place] [address] Emergency Department Summary 06/19/24 MR#: [id number] Acct: [id number] Name: LESLIEDINAH D Rep #: [id number] : 1940 84 From: Scar Hernandez DO PCP: Dr. Bennett Weir MD Status:DEP ER Location: ED HPI History of Present Illness Chief Complaint: Abd [facility] Medical History (Updated 06/19/24 @ 19:03 by Les Mccain) Diverticulitis Carotid stenosis Anxiety GERD (gastroesophageal reflux disease) Fibromyalgia Hyperlipidemia Hypertension Home Medications ???Medication ???Instructions ???Recorded ???Last Taken ???Type ezetimibe 10 mg tablet 10 mg PO DAILY 10/27/23 Unknown History acetaminophen 325 mg tablet 650 mg (2 x 325 mg) PO Q4H PRN PRN 10/28/23 Unknown Rx Pain 1-10 Or Fever>99.6 #0 tabs aspirin 81 mg chewable tablet 81 mg PO DAILYCM 30 days #0 tabs 10/28/23 Unknown Rx levofloxacin 750 mg tablet 750 mg PO DAILY #7 tabs 06/19/24 Unknown Rx metronidazole 500 mg tablet 500 mg PO BID 7 days #14 tabs 06/19/24 Unknown Rx ondansetron 4 mg disintegrating 4 mg PO Q8H PRN PRN Nausea #10 tabs 06/19/24 Unknown Rx tablet Allergy/AdvReac Type Severity Reaction Status Date / Time iodine Allergy Shortness Verified 06/19/24 19:02 of breath Xsmehmf-LGC-BbW Reductase Allergy Rash Verified 06/19/24 19:02 Inhibitor (Pcknnzz-Kgw-Vix Reductase Inhibitor) fenofibrate (From Tricor) AdvReac Other Verified 06/19/24 19:02 Family History Mother Heart disease Father Heart disease Surgical History S/P partial resection of colon Social History household members: none housing: house Smoking Status: Unknown if ever smoked alcohol intake: never substance use type: does not use EXAM Physical Exam Const Vital Signs: 06/19/24 18:59 06/19/24 19:01 06/19/24 20:01 Temperature 98.5 F 98.5 F 98.3 F Temperature Source Oral Oral Oral Pulse Rate 91 99 79 Respiratory Rate 18 18 18 Blood Pressure 182/52 H 158/39 H Blood Pressure Mean 95 78 Pulse Ox 99 99 99 Oxygen Delivery Method Room Air Room Air Room Air 06/19/24 20:58 06/19/24 21:38 06/19/24 22:00 Temperature 97.8 F Temperature Source Pulse Rate 91 89 81 Respiratory Rate 18 18 18 Blood Pressure 167/45 H 167/45 H 151/46 H Blood Pressure Mean 85 85 81 Pulse Ox 95 95 97 Oxygen Delivery Method Room Air Room Air [facility] Narrative Medical decision making narrative: HISTORY OF PRESENT ILLNESS: 84-year-old female with history of significant abdominal surgery, intestinal resection presents with left lower quadrant pain. She endorses left lower quadrant pain. She further states this began about an hour prior to arrival. No nausea or vomiting. No trouble urinating. No melena or hematochezia. REVIEW OF SYSTEMS: Pertinent positives: Abdominal pain Pertinent negatives: Nausea vomiting PHYSICAL EXAM: Nursing triage notes reviewed, Vital signs reviewed Constitutional: please see mdm HENT: MMM Eyes: Pupils equal round and reactive to light, Extraocular muscles intact Neck: No stridor, no JVD, full neck ROM Lungs: Clear to auscultation, No wheezing or rales. No increased work of breathing, no conversational dyspnea, no accessory muscle use, no nasal flaring. No respiratory distress noted Heart: Regular rate and rhythm, No murmurs, No rubs and No gallops, 2+ distal pulses (radial, femoral, posterior tibial) in all extremities Abdomen: Soft, there is no tenderness, rigidity, rebound or guarding, no obvious peritoneal signs, no palpable pulsatile abdominal masses, no auscultated abdominal bruit : No CVAT Extremities: No edema Neuro: No new focal neurological deficits, cranial nerves II through XII intact, 5/5 strength in all present extremities. Intact sensation to light touch in all present extremities, 2+ reflexes bilateral patella tendons. Skin: No rash or lesions noted MEDICAL DECISION MAKING: Chief Complaint: Abdominal pain External records reviewed: CT scan of the abdomen pelvis from 2021 was read and reviewed and showed diverticulosis Factors affecting care: Hypertension, hyperlipidemia, obesity Social determinants of health: none History obtained from others: none Consults: none [facility] Narrative: Patient was initially hypertensive with blood pressure 182/52, afebrile and nontoxic-appearing. Exam left lower quadrant TTP. No peritoneal signs I considered the following differential diagnosis: AAA, small bowel obstruction, abdominal perforation, appendicitis, pancreatitis, hepatobiliary pathology (acute cholecystitis), me (more content not included)... Normal [facility] Eosinophil percentageOrdered By: Scar Hernandez on 06-19-2024 Eosinophils/100 WBC (Bld) 1.5 % 0-5 [facility] Epithelial cells.squamous LM Ql (Urine sed)Ordered By: Scar Hernandez on 06-19-2024 Epithelial cells.squamous LM.HPF (Urine sed) [#/Area] 0 /[HPF] 5-10 [facility] Erythrocyte distribution wid th ratioOrdered By: Scar Hernandez on 06-19-2024 Erythrocyte distribution width (RBC) [Ratio] 13.7 % 11.6-14.6 [facility] Erythrocyte distribution wid th standard deviationOrdered By: Scar Hernandez on 06-19-2024 Erythrocyte distribution width (RBC) [Entitic vol] 46.5 fL High 35.1-43.9 [facility] Erythrocyte distribution width (RBC) [Ratio] 46.5 fl High 35.1-43.9 [facility] Estimated glomerular filtrat ion rate (GFR) AmericanOrdered By: Scar Hernandez on 06-19-2024 Estimated GFR (MDRD) Amer 96 mL/min >60 [facility] Comment on above: GFR Calc Estimation of creatinine mario aranceOrdered By: Scar Hernandez on 06-19-2024 Estimated Creatinine Clearance Calc 50.04 ml/min [facility] Glomerular filtration rate ( GFR) estimationOrdered By: Scar Hernandez on 06-19-2024 Estimated GFR (MDRD) Non-Af Amer 79 mL/min >60 [facility] Comment on above: Non- GFR Calc GFR/1.73 sq M.predicted among non-blacks MDRD (S/P/Bld) [Vol rate/Area] 79 mL/min/{1.73_m2} >60 [facility] Comment on above: Non- GFR Calc Glucose Ql (U)Ordered By: medhat Hernandez on 06-19-2024 Urine Glucose (UA) Normal mg/dl Normal [facility] Glucose measurementOrdered B y: Scar Hernandez on 06-19-2024 Glucose [Mass/Vol] 116 mg/dL High 74-106 [facility] Comment on above: Fasting Glucose resu lt from 100 to 125 mg/dL suggests IMPAIRED HOMEOSTASIS per A.D.A. criteria. Hematocrit Auto (Bld) [Volum e fraction]Ordered By: Scar Hernandez on 06-19-2024 Hematocrit (Bld) [Volume fraction] 43.2 % 37-47 [facility] Hemoglobin measurementOrdere d By: Scar Hernandez on 06-19-2024 Hemoglobin (Bld) [Mass/Vol] 14.7 g/dL 12.0-15.0 [facility] Immature granulocytes/100 WB C Auto (Bld)Ordered By: Scar Hernandez on 06-19-2024 Immature granulocytes/100 WBC (Bld) 1.100 % High 0.0-0.9 [facility] Comment on above: IG% - Immature Granu locytes (promyelocytes, myelocytes and metamyelocytes) > 1% indicates that a LEFT SHIFT is Present. Ketones Test strip Ql (U)Ord ered By: Scar Hernandez on 06-19-2024 Ketones Ql (U) Negative Negative [facility] Laboratory - Chemistry and C hemistry - challengeOrdered By: Scar Hernandez on 06-19-2024 AST [Catalytic activity/Vol] 15 U/L 15-37 [facility] Lipaseon 06-19-2024 Lipase [Catalytic activity/Vol] 41 U/L Normal 13-75 [facility] Comment on above: Result Comment: Plea note: LIPASE revised reference range effective 22. New Lipase methodology. Expected to produce lower values than the previous assay method. NEW Reference Range: 13 - 75 U/L Performed By: #### L 500.2500, L100.0100, L501.2450, L500.3400 ####[facility] [address] [place], [id number] Lipase measurementOrdered By : Scar Hernandez on 06-19-2024 Lipase [Catalytic activity/Vol] 41 U/L 13-75 [facility] Comment on above: Please note:LIPASE r evised reference range effective 22. New Lipase methodology. Expected to produce lower values than the previous assay method. NEW Reference Range: 13 - 75 U/L Liver Profileon 06-19-2024 Albumin [Mass/Vol] 3.5 g/dL Normal 3.2-5.0 [facility] Comment on above: Performed By: #### L 500.2500, L100.0100, L501.2450, L500.3400 ####[facility] [address] [place], [address] ALK P 71 U/L Normal 45-117 [facility] Comment on above: Performed By: #### L 500.2500, L100.0100, L501.2450, L500.3400 ####[facility] [address] [place], [address] ALT [Catalytic activity/Vol] 18 U/L Normal 13-56 [facility] Comment on above: Performed By: #### L 500.2500, L100.0100, L501.2450, L500.3400 ####[facility] [address] [place], [address] AST [Catalytic activity/Vol] 15 U/L Normal 15-37 [facility] Comment on above: Performed By: #### L 500.2500, L100.0100, L501.2450, L500.3400 ####[facility] [address] [place], [address] Bilirubin [Mass/Vol] 0.30 mg/dL Normal 0.20-1.00 [facility] Comment on above: Result Comment: For patients on eltrombopag therapy, use of Dimension [place] TBIL is not recommended. Performed By: #### L 500.2500, L100.0100, L501.2450, L500.3400 ####[facility] [address] [place], [address] Bilirubin.direct [Mass/Vol] 0.12 mg/dL Normal 0.00-0.30 [facility] Comment on above: Performed By: #### L 500.2500, L100.0100, L501.2450, L500.3400 ####[facility] [address] [place], [address] Globulin (S) [Mass/Vol] 3.2 g/dL Normal 2.2-4.2 [facility] Comment on above: Performed By: #### L 500.2500, L100.0100, L501.2450, L500.3400 ####[facility] [address] [place], [address] T PROT 6.7 g/dL Normal 6.4-8.2 [facility] Comment on above: Performed By: #### L 500.2500, L100.0100, L501.2450, L500.3400 ####[facility] [address] [place], [address] Lymphocytes Auto (Unsp spec) [#/Vol]Ordered By: Scar Hernandez on 06-19-2024 Lymphocytes (Bld) [#/Vol] 3.43 10*3/uL 0.83-4.51 [facility] Lymphocytes/100 WBC Auto (Un sp spec)Ordered By: Scar Hernandez on 06-19-2024 Lymphocytes/100 WBC (Bld) 35.3 % 19-41 [facility] MCV (mean corpuscular volume ) determinationOrdered By: Scar Hernandez on 06-19-2024 MCV (RBC) [Entitic vol] 93.3 fL 81-99 [facility] Mean corpuscular hemoglobin (MCH) determinationOrdered By: Scar Hernandez on 06-19-2024 MCH (RBC) [Entitic mass] 31.7 pg 27.0-32.0 [facility] Mean corpuscular hemoglobin concentration (MCHC) determinationOrdered By: Scar Hernandez on 06-19-2024 MCHC (RBC) [Mass/Vol] 34.0 g/dL 32-36 [facility] Mean platelet volume determi nationOrdered By: Scar Hernandez on 06-19-2024 Platelet mean volume (Bld) [Entitic vol] 9.7 fL 6.2-12.0 [facility] Microscopic analysis of urin e for red blood cells (RBC)Ordered By: Scar Hernandez on 06-19-2024 Microscopic analysis of urine for red blood cells (RBC) 0 SEEN /hpf 0-5 [facility] Urine RBC 0 SEEN /hpf 0-5 [facility] Monocyte percentageOrdered B y: Scar Hernandez on 06-19-2024 Monocytes/100 WBC (Bld) 8.0 % 0-10 [facility] Mucus LM Ql (Urine sed)Order ed By: Scar Hernandez on 06-19-2024 Mucus Ql (Urine sed) 0 SEEN /hpf [facility] Neutrophil percentageOrdered By: Scar Hernandez on 06-19-2024 Neutrophils/100 WBC (Bld) 53.3 % 47-70 [facility] Nitrite Test strip Ql (U)Ord ered By: Scar Hernandez on 06-19-2024 Nitrite Ql (U) Negative Negative [facility] Nucleated red blood cell per centageOrdered By: Scar Hernandez on 06-19-2024 Nucleated RBC/100 WBC (Bld) [Ratio] 0 % 0-5 [facility] Platelet countOrdered By: Concetta Hernandez on 06-19-2024 Platelets (Bld) [#/Vol] 231 10*3/uL 150-450 [facility] Potassium measurementOrdered By: Scar Hernandez on 06-19-2024 Potassium [Moles/Vol] 3.9 mmol/L 3.5-5.1 [facility] Protein Test strip Ql (U)Ord ered By: Scar Hernandez on 06-19-2024 Protein Ql (U) Negative Negative [facility] RBC Auto (Bld) [#/Vol]Ordere d By: Scar Hernandez on 06-19-2024 RBC (Bld) [#/Vol] 4.63 10*6/uL 4.2-5.4 [facility] Serum anion gap measurementO rdered By: Scar Hernandez on 06-19-2024 Anion gap [Moles/Vol] 5 mmol/L 5-15 [facility] Serum globulin measurementOr dered By: Scar Hernandez on 06-19-2024 Globulin (S) [Mass/Vol] 3.2 g/dL 2.2-4.2 [facility] Serum or plasma alanine valentino otransferase (ALT) measurementOrdered By: Scar Hernandez on 06-19-2024 ALT [Catalytic activity/Vol] 18 U/L 13-56 [facility] Serum or plasma albumin michelle urement (mass/volume)Ordered By: Scar Hernandez on 06-19-2024 Albumin [Mass/Vol] 3.5 g/dL 3.2-5.0 [facility] Serum or plasma alkaline delphine sphatase measurementOrdered By: Scar Hernandez on 06-19-2024 ALP [Catalytic activity/Vol] 71 U/L 45-117 [facility] Serum or plasma calcium michelle urement (mass/volume)Ordered By: Scar Hernandez on 06-19-2024 Calcium [Mass/Vol] 9.6 mg/dL 8.5-10.1 [facility] Serum or plasma creatinine m easurement (mass/volume)Ordered By: Scar Hernandez on 06-19-2024 Creatinine [Mass/Vol] 0.74 mg/dL 0.55-1.02 [facility] Comment on above: The validity of the calculated GFR & GFRAA in patients over 70 years has not been determined. Clinical correlation is essential. Serum or plasma urea nitroge n measurement (mass/volume)Ordered By: Scar Hernandez on 06-19-2024 Urea nitrogen [Mass/Vol] 17 mg/dL 7-18 [facility] Sodium levelOrdered By: Garrison Hernandez on 06-19-2024 Sodium [Moles/Vol] 142 mmol/L 136-145 [facility] Squamous epithelial cells de tection in urine sediment by light microscopyOrdered By: Scar Hernandez on 06-19-2024 Epithelial cells.squamous LM Ql (Urine sed) 0 SEEN /hpf 5-10 [facility] Total proteinOrdered By: Alison Hernandez on 06-19-2024 Protein [Mass/Vol] 6.7 g/dL 6.4-8.2 [facility] Urinalysis, Completeon 06-19 BACTERIA 0 SEEN Normal None Seen [facility] Comment on above: Order Comment: COLLE CTOR TO SPECIFY Performed By: #### L 400.0001 #### [facility] [address] [place], [address] EPI,SQUAMOUS 0 SEEN Normal 5-10 [facility] Comment on above: Order Comment: CHACHA CTOR TO SPECIFY Performed By: #### L 400.0001 #### [facility] [address] [place], [address] Mucus Ql (Urine sed) 0 SEEN Normal [facility] Comment on above: Order Comment: CHACHA CTOR TO SPECIFY Performed By: #### L 400.0001 #### [facility] [address] [place], [address] RBC 0 SEEN Normal 0-5 [facility] Comment on above: Order Comment: CHACHA CTOR TO SPECIFY Performed By: #### L 400.0001 #### [facility] [address] [place], [address] WBC 0 SEEN Normal 0-5 [facility] Comment on above: Order Comment: CHACHA CTOR TO SPECIFY Performed By: #### L 400.0001 #### [facility] [address] [place], [address] Urine blood detectionOrdered By: Scar Hernandez on 06-19-2024 Urine Occult Blood 150 /ul High Negative [facility] Urine clarityOrdered By: Alison Hernandez on 06-19-2024 Clarity (U) Clear Clear [facility] Urine color determinationOrd ered By: Scar Hernandez on 06-19-2024 Color (U) Yellow Yellow [facility] Urine glucose detectionOrder ed By: Scar Hernandez on 06-19-2024 Glucose Ql (U) Normal mg/dl Normal [facility] Urine leukocyte esterase det ection by dipstickOrdered By: Scar Hernandez on 06-19-2024 Leukocyte esterase Test strip Ql (U) Negative Negative [facility] [facility] Urine pHOrdered By: Scar wynn on 06-19-2024 pH (U) 7.0 [pH] 5.0 - 8.0 [facility] Urine sediment bacteria coun t by microscopy (number/high power field)Ordered By: Scar Hernandez on 06-19-2024 Bacteria LM.HPF (Urine sed) [#/Area] 0 /[HPF] None Seen [facility] Urine specific gravity measu rementOrdered By: Scar Hernandez on 06-19-2024 Specific gravity (U) [Rel density] 1.010 1.002-1.030 [facility] Urine urobilinogen measureme ntOrdered By: Scar Hernandez on 06-19-2024 Urobilinogen Ql (U) Normal mg/dl Normal [facility] Urobilinogen Ql (U)Ordered B y: Scar Hernandez on 06-19-2024 Urine Urobilinogen Normal mg/dl Normal [facility] White blood cell (WBC) count Ordered By: Scar Hernandez on 06-19-2024 WBC (Bld) [#/Vol] 9.7 10*3/uL 4.4-11.0 [facility] White blood cell countOrdere d By: Scar Hernandez on 06-19-2024 Urine WBC 0 SEEN /hpf 0-5 [facility] White blood cell count 0 SEEN /hpf 0-5 [facility] CNPNon 03-31-2024 CNPN Telephone (VASSMD) DINAH NELSON ([id number]) 1940 F Date Time Provider Department 03/31/24 KRISTEN LEON VASAshlee During your visit today, we recorded the following information about you: Shamika Michaud RN 03/31/2024 9:33 AM Signed Patient had testing on 03/29/24 and would like called with the results Please review and advise Shamika Michaud RN 04/12/2024 9:30 AM Signed Kirsten Leon, DO You; [facility]20 hours ago (12:39 PM) Sorry for delay I reviewed her PVRs. They are stable. I would like to see her if possible since we only have office visit once a year however if she is doing well, I would follow up next year Thank you Katrin Rachel message sent to the patient Shamika Michaud RN 04/29/2024 10:17 AM Signed Called patient and left VM that [email or web address] message was sent regarding results however to call office with any questions or for results Shamika Michaud RN 05/10/2024 11:01 AM Signed Made third attempt to contact the patient, Left VM to call office with any concerns. Recall placed for annual f/u Allergies As of Date: 03/31/2024 Noted Allergy Reaction LOVASTATIN 01/03/2015 17 - Myalgia Comments: Severe myalgia, gi upset, PEXSJDX-GWK-RNN REDUCTASE INHIBIT*03/22/2015 17 - Myalgia CRESTOR (ROSUVASTATIN [...] 12 - Shortness of Breath Date Reviewed: 02/24/2024 Reviewed by: Tamiko Buchanan, CAR SALESMAN.AUDIO VISUAL COORDINATOR - Fully Assessed Reason for Visit: Results [95] Prescriptions as of 05/10/2024 - ezetimibe (ZETIA) 10 mg tablet Take 1 tablet by mouth once daily. - aspirin, enteric coated (ASPIRIN, ENTERIC COATED) 81 mg EC tablet Take 1 tablet by mouth every other day. - magnesium oxide 300 mg magnesium tab Take 1 tablet by mouth once daily. Meds Comments as of 07/20/2023: 07/20/23 Patient reports she does not take any medications, has not filled the cholesterol medication yet. Melissa Le RN 01/20/23 Patient reports no changes to current medications. 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] 06/03/2005 Diverticulosis of colon (without mention of hem*06/03/2005 02/22/2015 Personal history of colonic polyps [Z86.0100] 08/13/2009 02/22/2015 Diverticulitis [K57.92] 11/13/2009 04/15/2011 Diverticulosis [K57.90] 04/15/2011 03/24/2016 PMB (postmenopausal bleeding) [N95.0] 06/20/2011 03/24/2016 KOLTON favor benign [VFX8582] 06/20/2011 03/24/2016 Hematuria [R31.9] 01/16/2014 02/22/2015 Mixed hyperlipidemia [E78.2] 03/24/2016 Atherosclerosis of arteries [I70.90] 03/24/2016 07/22/2022 Aortic valve stenosis, mild [I35.0] 08/15/2023 Chronic urticaria [L50.8] 03/04/2017 Obesity, Class I, BMI 30-34.9 [E66.811] 09/27/2018 Multiple thyroid nodules [E04.2] 11/08/2019 Essential hypertension [I10] 07/24/2020 PVD (peripheral vascular disease) with claudica*07/27/2020 Raynaud's phenomenon without gangrene [I73.00] 11/27/2020 Anxiety about health [R45.89] 08/30/2021 Polymyalgia rheumatica (HCC) [M35.3] 09/16/2021 07/23/2022 Synovitis of wrist [M65.939] 01/20/2022 07/23/2022 Dysphagia [R13.10] 11/18/2023 Encounter Status:Closed by SHAMIKA MICHAUD on 05/10/24 Normal [facility] PVR ANK/MINAYA/TOE UMESH VAS LAB on 03-29-2024 PVR ANK/MINAYA/TOE UMESH VAS LAB Non-Invasive Vascular Laboratory [facility] Lower Extremity Arterial Physiology Study Bilateral/Complete Date of service/time: 03/29/2024 8:11:48 AM Name: MRS. DINAH NELSON Date of : 1940 Age: 83 years Gender: F Clinical Indication Peripheral arterial disease. TECHNIQUE -------- An arterial physiological examination was performed, including measurement of blood pressures using continuous wave Doppler and recording of plethysmographic with or without Doppler waveforms at the below-mentioned limb segments. FINDINGS -------- RIGHT SIDE AT REST Right Doppler Waveforms Dorsalis pedis: Multiphasic. Post tibial: Multiphasic. Right Pressures Brachial: 142 mmHg Ankle dorsalis pedis: 155 mmHg DAYSI: 1.06 Ankle posterior tibial: 152 mmHg DAYSI: 1.04 Right PVR Waveforms Ankle: Normal. Transmetatarsal: Normal. Digit: Normal. LEFT SIDE AT REST Left Doppler Waveforms Dorsalis pedis: Multiphasic. Post tibial: Multiphasic. Left Pressures Brachial: 146 mmHg Ankle dorsalis pedis: 97 mmHg DAYSI: 0.66 Ankle posterior tibial: 86 mmHg DAYSI: 0.59 Left PVR Waveforms Ankle: Moderately dampened. Transmetatarsal: Moderately dampened. Digit: Moderately dampened. IMPRESSION Compared to prior study of 03/31/2023, Right ankle brachial index was 1.03 and left was 0.67. RIGHT SIDE Resting right ankle brachial index: 1.06 Normal ankle brachial index at rest in the right leg. Right ankle: Normal at rest. LEFT SIDE Resting left ankle brachial index: 0.66 Abnormal ankle brachial index at rest diagnostic of peripheral artery disease. Left ankle: Moderate disease at rest. Technologist: Lili Tavares RVT, [facility] Ordering physician: KIRSTEN LEON Interpreting physician: EBONY Ruth DO Final CC [facility] Image : [id number] [id number] See Link below for Image Normal [facility] CNOVon 02-24-2024 CNOV Office Visit (INTMWS ) LESLIEDINAH BOLES Ashlee ([id number]) 1940 F Date Time Provider Department 02/24/24 5:00 PM TAMIKO BUCHANAN INTMWS During your visit today, we recorded the following information about you: Temperature Pulse Respiration Blood pressure 98.1 degrees 92/minute 16/minute 120/72 Weight Height 72.9 kg 1.581 m Tamiko Buchanan, CAR SALESMAN.AUDIO VISUAL COORDINATOR 02/24/2024 5:12 PM Signed Dinah Rosado Leslie is a 83 year old female here for a Medicare wellness visit. Medicare Health Risk Assessment General Health Very good Exercise: Minutes/Day 20 min Exercise: Days/Week 7 days Alcohol: Daily Use Never Alcohol: Drinks/Day Patient does not drink Alcohol: 6 or more drinks Never Feel off balance No Concerns: Teeth/Dentures No Concerns: Sexual function No Troubled by feelings None of the above Frequency: Eating healthy diet Nearly every day ADLs requiring help None of the above Safety precautions in home/vehicle Yes Smoke, vape, chews tobacco No Difficulty hearing No Difficulty seeing No Current Providers Specialists: I have reviewed specialist-related care of the patient in the medical record. Current care team: Patient Care Team: Bennett Weir MD as PCP - General (Internal Medicine) Katia Fall RN as Magento Developer Dr. Leon-vascular Outside specialists- [facility] (Dr. Rahman) Medical/Family history review Reviewed and updated problem list, medical/surgical/fami ly/social history, medications, and allergies. Opioid use review Opioid Medications (last 90 days) No data to display Anxiety/Depression screening PHQ-2 Score: 0 Recommendation: no further intervention at this time Cognitive screening Mini Cog Score: 5 Cognitive screening reviewed and No further action needed (score 3-5). Functional Observation Was the patient's Timed Up AND Go test unsteady or >= 12 seconds? No Advance Care Planning Patient was not able to provide a surrogate decision maker or written advance directives Measurements BP 120/72 (BP Site: Left Arm, BP Position: Sitting, BP Cuff Size: Large Adult) Pulse 92 Temp 36.7 ?C (98.1 ?F) (Temporal) Resp 16 Ht 158.1 cm (5' 2.25) Wt 72.9 kg (160 lb 11.5 oz) BMI 29.16 kg/m? Vision Screening: Follows with optometry/ophthalmolo gy Assessment/Plan Medicare annual wellness visit, subsequent (Z00.00) - Counseled on healthy diet and regular exercise - Fall avoidance information provided - Personalized prevention plan provided - Discussed need for and benefit of weight loss. BMI 29.16 kg/(m2) 2. Mixed hyperlipidemia - ICD9: 272.2, ICD10: E78.2 Stable, continue current meds - LIPID PANEL BASIC in 6 months 3. Screening for depression - ICD9: V79.0, ICD10: Z13.31 - DEPRESSION SCREENING MICHELLE Tidwell Naz M, APRN.CNP 02/24/2024 5:04 PM Addendum Screening schedule The following prevention plan is recommended: Shingrix Vaccine(1 of 2) Never done RSV Vaccine(1 - 1-dose 75+ series) Never done WHAT YOU CAN DO TO [...] Exercises that improve balance and coordination (like Oamr Chi) are the most helpful. Lack of exercise leads to weakness and increases your chances of falling. Ask your doctor or health care provider about the best type of exercise program for you. 2. Have your health care provider review your medicines Have your doctor or pharmacist review all the medicines you take, even klnl-efz-gxsalud medicines. As you get older, the way [...] curtains or shades to reduce glare. Have kirby (more content not included)... Normal [facility] Basic metabolic 2000 panelon 02-22-2024 Anion gap [Moles/Vol] 9 mmol/L Normal 8-15 [facility] Comment on above: Order Comment: Speci men Type: BLOOD SPECIMENOrdering Facility: [facility] Address: [address] [place] [address] Performed By: #### 2 4321-2, 44629-1 ####[facility] LABCLIA [id number] [address] [address] [place] Calcium [Mass/Vol] 9.7 mg/dL Normal 8.5-10.2 [facility] Comment on above: Order Comment: Speci men Type: BLOOD SPECIMENOrdering Facility: [facility] Address: [address] [place] [address] Performed By: #### 2 4321-2, 28703-2 ####[facility] LABCLIA [id number] [facility] [address] [address] [place] Chloride [Moles/Vol] 103 mmol/L Normal 98-107 [facility] Comment on above: Order Comment: Speci men Type: BLOOD SPECIMENOrdering Facility: [facility] Address: [address] [place] [address] Performed By: #### 2 4321-2, 30101-2 ####[facility] LABCLIA [id number] [place] [address] [place] CO2 [Moles/Vol] 27 mmol/L Normal 22-30 [facility] Comment on above: Order Comment: Speci men Type: BLOOD SPECIMENOrdering Facility: [facility] Address: [address] [place] [address] Performed By: #### 2 4321-2, 03421-7 ####[facility] LABCLIA [id number] [place] [address] [place] Creatinine [Mass/Vol] 0.69 mg/dL Normal 0.58-0.96 [facility] Comment on above: Order Comment: Speci men Type: BLOOD SPECIMENOrdering Facility: [facility] Address: [address] [place] [address] Performed By: #### 2 4321-2, 87797-9 ####[facility] LABIA [id number] [place] [address] [place] Creatinine and Glomerular filtration rate.predicted panel (S/P/Bld) 85 mL/min/1.73m??? Normal >=60 [facility] Comment on above: Order Comment: Speci men Type: BLOOD SPECIMENOrdering Facility: [facility] Address: [address] [place] [address] Result Comment: Norma mated Glomerular Filtration Rate (eGFR) is calculated using the 2020 CKD-EPI creatinine equation. This equation utilizes serum creatinine, sex, and age as parameters. The creatinine assay has traceable calibration to isotope dilution-mass spectrometry. Refer to KDIGO guidelines for clinical interpretation. In patients with unstable renal function, e.g. those with acute kidney injury, the eGFR may not accurately reflect actual GFR. Performed By: #### 2 4321-2, 60276-1 ####[facility] LABCLIA [id number] [place] [address] [place] Glucose [Mass/Vol] 102 mg/dL High 74-99 [facility] Comment on above: Order Comment: Xenia oliveira Type: BLOOD SPECIMENOrdering Facility: [facility] Address: [address] [place] [address] Result Comment: The [place] Diabetes Association (ADA) provides guidance for cutoff values for fasting glucose and random glucose. The ADA defines fasting as no caloric intake for at least 8 hours. Fasting plasma glucose results between 100 to 125 mg/dL indicate increased risk for diabetes (prediabetes). Fasting plasma glucose results greater than or equal to 126 mg/dL meet the criteria for diagnosis of diabetes. In the absence of unequivocal hyperglycemia, results should be confirmed by repeat testing. In a patient with classic symptoms of hyperglycemia or hyperglycemic crisis, random plasma glucose results greater than or equal to 200 mg/dL meet the criteria for diagnosis of diabetes. Reference: Standards of Medical Care in Diabetes 2016, [place] Diabetes Association. Diabetes Care. 2016.39(Suppl 1). Performed By: #### 2 432-, 65342-6 ####[facility] LABCLIA [id number] [place] [id number] [place] Potassium [Moles/Vol] 4.3 mmol/L Normal 3.7-5.1 [facility] Comment on above: Order Comment: Xenia oliveira Type: BLOOD SPECIMENOrdering Facility: [facility] Address: [address] [place] [address] Performed By: #### 2 432-, 75298-6 ####[facility] LABCLIA [id number] [place] [address] [place] Sodium [Moles/Vol] 139 mmol/L Normal 136-144 [facility] Comment on above: Order Comment: Speci men Type: BLOOD SPECIMENOrdering Facility: [facility] Address: [address] [place] [address] Performed By: #### 2 4321-2, 40811-2 ####[facility] LABCLIA [id number] [place] [address] [place] Urea nitrogen [Mass/Vol] 11 mg/dL Normal 7-21 [facility] Comment on above: Order Comment: Speci men Type: BLOOD SPECIMENOrdering Facility: [facility] Address: [address] [place] [address] Performed By: #### 2 4321-2, 92977-7 ####[facility] LABCLIA [id number] [place] [address] [place] CBC panel Auto (Bld)on 02-21 Erythrocyte distribution width (RBC) [Ratio] 16.3 % High 11.5-15.0 [facility] Comment on above: Order Comment: Speci men Type: BLOOD SPECIMENOrdering Facility: [facility] Address: [address] [place] [address] Performed By: #### 5 8410-2 ####[facility] LABCLIA [id number] [place] [address] [place] Hematocrit (Bld) [Volume fraction] 40.7 % Normal 36.0-46.0 [facility] Comment on above: Order Comment: Speci men Type: BLOOD SPECIMENOrdering Facility: [facility] Address: [address] [place] [address] Performed By: #### 5 8410-2 ####[facility] LABCLIA [id number] [place] [address] [place] Hemoglobin (Bld) [Mass/Vol] 14.7 g/dL Normal 11.5-15.5 [facility] Comment on above: Order Comment: Speci men Type: BLOOD SPECIMENOrdering Facility: [facility] Address: [address] [place] [address] Performed By: #### 5 8410-2 ####[facility] LABCLIA [id number] [place] [address] [place] MCH (RBC) [Entitic mass] 36.3 pg High 26.0-34.0 [facility] Comment on above: Order Comment: Speci men Type: BLOOD SPECIMENOrdering Facility: [facility] Address: [address] [place] [address] Performed By: #### 5 8410-2 ####[facility] LABIA [id number] [place] [address] [place] MCHC (RBC) [Mass/Vol] 36.1 g/dL High 30.5-36.0 [facility] Comment on above: Order Comment: Speci men Type: BLOOD SPECIMENOrdering Facility: [facility] Address: [address] [place] [address] Performed By: #### 5 8410-2 ####[facility] LABIA [id number] [place] [address] [place] MCV (RBC) [Entitic vol] 100.5 fL High 80.0-100.0 C [facility] Comment on above: Order Comment: Speci men Type: BLOOD SPECIMENOrdering Facility: [facility] Address: [address] [place] [address] Performed By: #### 5 8410-2 ####[facility] LABIA [id number] [place] [address] [place] Nucleated RBC (Bld) [#/Vol] 10*3/uL Normal <0.01 [facility] Comment on above: Order Comment: Speci men Type: BLOOD SPECIMENOrdering Facility: [facility] Address: [address] [place] [address] Performed By: #### 5 8410-2 ####[facility] LABCLIA [id number] [place] [address] [place] Platelet mean volume (Bld) [Entitic vol] 9.8 fL Normal 9.0-12.7 [facility] Comment on above: Order Comment: Speci men Type: BLOOD SPECIMENOrdering Facility: [facility] Address: [address] [place] [address] Performed By: #### 5 8410-2 ####[facility] LABIA [id number] [place] [address] [place] Platelets (Bld) [#/Vol] 239 10*3/uL Normal 150-400 [facility] Comment on above: Order Comment: Speci men Type: BLOOD SPECIMENOrdering Facility: [facility] Address: [address] [place] [address] Performed By: #### 5 8410-2 ####[facility] [id number] [place] [address] [place] RBC (Bld) [#/Vol] 4.05 10*6/uL Normal 3.90-5.20 [facility] Comment on above: Order Comment: Speci men Type: BLOOD SPECIMENOrdering Facility: [facility] Address: [address] [place] [address] Performed By: #### 5 8410-2 ####[facility] LABIA [id number] [place] [address] [place] WBC (Bld) [#/Vol] 9.48 10*3/uL Normal 3.70-11.00 [facility] Comment on above: Order Comment: Speci men Type: BLOOD SPECIMENOrdering Facility: [facility] Address: [address] [place] [address] Result Comment: Resu lts checked and verified.No clot detected. Performed By: #### 5 8410-2 ####[facility] LABIA [id number] [place] [address] [place] Lipid 1996 panelon 4 Cholesterol [Mass/Vol] 249 mg/dL High <200 [facility] Comment on above: Order Comment: Speci men Type: BLOOD SPECIMENOrdering Facility: [facility] Address: [address] [place] [address] Result Comment: <200 mg/dL, Desirable 200-239 mg/dL, Borderline high >239 mg/dL, High Performed By: #### 2 4321-2, 79795-8 ####[facility] LABCLIA [id number] [address] [place] Cholesterol in HDL [Mass/Vol] 47 mg/dL Normal >39 [facility] Comment on above: Order Comment: Speci men Type: BLOOD SPECIMENOrdering Facility: [facility] Address: [address] [place] [address] Result Comment: 40-5 9 mg/dL, Acceptable >59 mg/dL, High: Negative risk factor for coronary heart disease <40 mg/dL, Low: Positive risk factor for coronary heart disease Performed By: #### 2 4321-2, 21324-8 ####[facility] LABCLIA [id number] [address] STATES [place] [facility] Cholesterol in LDL [Mass/Vol] 161 mg/dL High <100 [facility] Comment on above: Order Comment: Speci men Type: BLOOD SPECIMENOrdering Facility: [facility] Address: [address] [place] [address] Result Comment: <100 mg/dL, Optimal 100-129 mg/dL, Near optimal/above optimal 130-159 mg/dL, Borderline high 160-189 mg/dL, High >189 mg/dL, Very high Secondary prevention optimal LDL Cholesterol levels are recommended to be < 70 mg/dL Performed By: #### 2 4321-2, 15438-2 ####[facility] LABCLIA [id number] [place] [address] [place] Cholesterol in LDL/Cholesterol in HDL [Mass ratio] 3.43 {ratio} High <2.54 [facility] Comment on above: Order Comment: Speci men Type: BLOOD SPECIMENOrdering Facility: [facility] Address: [address] [place] [address] Result Comment: Renaldo laurent: 1. National Cholesterol Education Program ATP III Guideline At-A-Glance Quick Desk Reference: National Heart, Lung, and Blood [place]. National Institutes of Health. 2001: NIH Publication No. 01-3305. 2. An International Atherosclerosis Society position paper: global recommendations for the management of dyslipidemia: executive summary, Atherosclerosis. 2014: 232(2):410-413. Performed By: #### 2 4321-2, 49236-5 ####[facility] LABCLIA [id number] [place] [address] [place] Cholesterol in VLDL [Mass/Vol] 41 mg/dL High <30 [facility] Comment on above: Order Comment: Speci men Type: BLOOD SPECIMENOrdering Facility: [facility] Address: [address] [place] [address] Performed By: #### 2 432-2, 67257-3 ####[facility] LABCLIA [id number] [place] [address] [place] Cholesterol non HDL [Mass/Vol] 202 mg/dL High <130 [facility] Comment on above: Order Comment: Speci men Type: BLOOD SPECIMENOrdering Facility: [facility] Address: [address] [place] [address] Result Comment: <130 mg/dL, Optimal 130-159 mg/dL, Near optimal/above optimal 160-189 mg/dL, Borderline high 190-219 mg/dL, High >219 mg/dL, Very high Secondary prevention optimal non HDL Cholesterol levels are recommended to be <100 mg/dL Performed By: #### 2 4321-2, 33401-4 ####[facility] LABCLIA [id number] [place] [address] [place] Cholesterol.total/Choles terol in HDL [Mass ratio] 5.30 {ratio} High <5.10 [facility] Comment on above: Order Comment: Speci men Type: BLOOD SPECIMENOrdering Facility: [facility] Address: [address] [place] [address] Performed By: #### 2 4321-2, 05496-9 ####[facility] LABCLIA [id number] [place] [address] [place] FASTING TIME 14 hrs Normal [facility] Comment on above: Order Comment: Speci men Type: BLOOD SPECIMENOrdering Facility: [facility] Address: [address] [place] [address] Performed By: #### 2 4321-2, 71743-7 ####[facility] LABCLIA [id number] [place] [address] [place] Triglyceride [Mass/Vol] 204 mg/dL High <150 C [facility] Comment on above: Order Comment: Speci men Type: BLOOD SPECIMENOrdering Facility: [facility] Address: [address] [place] [address] Result Comment: <150 mg/dL, Normal 150-199 mg/dL, Borderline high 200-499 mg/dL, High >499 mg/dL, Very high Performed By: #### 2 432-2, 18104-3 ####[facility] LABCLIA [id number] [place] [address] [place] EGD Study observation Kp ball 11-18-2023 [facility] Gastrointestinal Endoscopy Patient Name: Dinah Nelson Procedure Date: 11/18/2023 10:00 AM Date of : 1940 Admit Type: Outpatient Age: 83 Gender: Female Note Status: Finalized Procedure: Upper GI endoscopy Indications: Dysphagia Providers: Silvino Mclaughlin MD Patient Profile: This is an 83 year old female. Refer to note in patient chart for documentation of history and physical. Referring Physician: Silvino Mclaughlin MD (Referring MD) Medicines: Fentanyl 50 micrograms IV, Midazolam 4 mg IV, Benzocaine spray Complications: No immediate complications. Estimated blood loss: Minimal. Requesting Provider: Procedure: Pre-Anesthesia Assessment: - Prior to the procedure, a History and Physical was performed, and patient medications and allergies were reviewed. The patient's tolerance of previous anesthesia was also reviewed. The risks and benefits of the procedure and the sedation options and risks were discussed with the patient. All questions were answered, and informed consent was obtained. Prior Anticoagulants: The patient has taken no anticoagulant or antiplatelet agents except for aspirin. ASA Grade Assessment: III - A patient with severe systemic disease. After reviewing the risks and benefits, the patient was deemed in satisfactory condition to undergo the procedure. After obtaining informed consent, the endoscope was passed under direct vision. Throughout the procedure, the patient's blood pressure, pulse, and oxygen saturations were monitored continuously. The Endosonoscope was introduced through the mouth, and advanced to the second part of duodenum. The upper GI endoscopy was accomplished without difficulty. The patient tolerated the procedure well. Moderate Sedation: The administration of moderate sedation was initiated at 10:13 AM. Moderate (conscious) sedation was personally administered by the endoscopist. The following parameters were monitored: oxygen saturation, heart rate, blood pressure, respiratory rate, EKG, adequacy of pulmonary ventilation, and response to care. Total physician intraservice time was 7 minutes. Findings: The Z-line was regular and was found 35 cm from the incisors. Biopsies were taken with a cold forceps for histology. Localized minimal inflammation characterized by erythema was found in the prepyloric region of the stomach. Biopsies were taken with a cold forceps for Helicobacter pylori testing. The examined duodenum was normal. Biopsies for histology were taken with a cold forceps for evaluation of celiac disease. Impression: - Z-line regular, 35 cm from the incisors. Biopsied. - Gastritis. Biopsied. - Normal examined duodenum. Biopsied. Recommendation: - Patient has a contact number available for emergencies. The signs and symptoms of potential delayed complications were discussed with the patient. Return to normal activities tomorrow. Written discharge instructions were provided to the patient. - Resume previous diet. - Continue present medications. - Await pathology results. - Repeat upper endoscopy PRN for surveillance. - Return to nurse practitioner at appointment to be scheduled. Procedure Code(s): --- Professional --- 17854, Esophagogastroduodeno scopy, flexible, transoral; with biopsy, single or multiple Diagnosis Code(s): --- Professional --- K29.70, Gastritis, unspecified, without bleeding R13.10, Dysphagia, unspecified CPT copyright 2020 [employer]. All rights reserved. The codes documented in this report are preliminary and upon ampoule washing machine operator review may be revised to meet current compliance requirements. Attending Participation: I personally performed the entire procedure. Scope In: 10:16:13 AM Scope Out: 10:20:15 AM MD Silvino Wong MD 11/17 (more content not included)... [facility] Radiology Study observation (narrative) [facility] XR Knee - right 4 Viewson IMPRESSION: No acute osseous abnormality. Mild patellofemoral compartment osteoarthritis RIGHT knee. Chondrocalcinosis. Timber Cruiser: MARY ELLEN Transcribe Date/Time: Jul 23 2023 8:39A Dictated by : FELI DE LA O DO This examination was interpreted and the report reviewed and electronically signed by: FELI DE LA O DO on Jul 23 2023 8:43AM [facility] DIVISION OF RADIOLOGY * * *Final Report* * * DATE OF EXAM: Jul 22 2023 12:45PM WOX 5203 - XR KNEE 4V AP/PA BOTH+LAT/MARIBEL RT / PROCEDURE REASON: Acute pain of right knee * * * * Physician Interpretation * * * * EXAMINATION: XR KNEE 4V AP/PA BOTH+LAT/MARIBEL RT PATIENT/TECHNOLOGIST PROVIDED HISTORY: pain since last fall medial side of right knee was raking leaves no inj CLINICAL INFORMATION: 83 years old Female with Acute pain of right knee TECHNIQUE: XR KNEE 4V AP/PA BOTH+LAT/MARIBEL RT Laterality: RIGHT Number of different views (projections): 4 COMPARISON: None. RESULT: No fracture. Probable small joint effusion. Chondrocalcinosis. Small tibiofemoral osteophytes without significant joint space narrowing. Mild patellofemoral compartment compartment osteoarthritis with small marginal osteophytes and degenerative subchondral cystic change. Vascular calcifications. Images of the LEFT knee demonstrate small marginal osteophytes and chondrocalcinosis. DIVISION OF RADIOLOGY Provider, [facility]23 * * *Final Report* * * DATE OF EXAM: Jul 22 2023 12:45PM WOX 5203 - XR KNEE 4V AP/PA BOTH+LAT/MARIBEL RT / PROCEDURE REASON: Acute pain of right knee * * * * Physician Interpretation * * * * EXAMINATION: XR KNEE 4V AP/PA BOTH+LAT/MARIBEL RT PATIENT/TECHNOLOGIST PROVIDED HISTORY: pain since last fall medial side of right knee was raking leaves no inj CLINICAL INFORMATION: 83 years old Female with Acute pain of right knee TECHNIQUE: XR KNEE 4V AP/PA BOTH+LAT/MARIBEL RT Laterality: RIGHT Number of different views (projections): 4 COMPARISON: None. RESULT: No fracture. Probable small joint effusion. Chondrocalcinosis. Small tibiofemoral osteophytes without significant joint space narrowing. Mild patellofemoral compartment compartment osteoarthritis with small marginal osteophytes and degenerative subchondral cystic change. Vascular calcifications. Images of the LEFT knee demonstrate small marginal osteophytes and chondrocalcinosis. IMPRESSION IMPRESSION: No acute osseous abnormality. Mild patellofemoral compartment osteoarthritis RIGHT knee. Chondrocalcinosis. Timber Cruiser: MARY ELLEN Transcribe Date/Time: Jul 23 2023 8:39A Dictated by : FELI DE LA O DO This examination was interpreted and the report reviewed and electronically signed by: FELI DE LA O DO on Jul 23 2023 8:43AM EST [facility] XR Knee - right 4 ViewsOrder ed By: [facility] Provider on 07-23-2023 [facility] XR Knee - right 4 [facility] Radiology Study observation (narrative) [facility] Absolute lymphocyte countOrd ered By: Jesica Mitchell on 07-20-2023 Lymphocytes Auto (Unsp spec) [#/Vol] 2.38 10*3/uL 0.83-4.51 [facility] Automated lymphocyte count a s percentage of total leukocytesOrdered By: Jesica Mitchell on 07-20-2023 Lymphocytes/100 WBC Auto (Unsp spec) 28.3 % 19-41 [facility] Basophil percentageOrdered B y: Jesica Mitchell on 07-20-2023 Basophil percentage 0 SEEN /[facility] 0-[facility] Basophils/100 WBC (Bld) 0.6 % 0-1 [facility] Chloride [Moles/Vol] 111 mmol/L 98-[address] [facility] Eosinophils/100 WBC (Bld) 1.2 % 0-5 [facility] Glucose [Mass/Vol] 118 mg/dL 74-106 [facility] Comment on above: Fasting Glucose resu lt from 100 to 125 mg/dL suggests IMPAIRED HOMEOSTASIS per A.D.A. criteria. Hemoglobin (Bld) [Mass/Vol] 13.9 g/dL 12.0-15.0 [facility] Monocytes/100 WBC (Bld) 6.9 % 0-10 [facility] Neutrophils (Bld) [#/Vol] 5.3 10*3/uL 2.0-7.7 [facility] Neutrophils/100 WBC (Bld) 62.3 % 47-70 [facility] Potassium [Moles/Vol] 3.8 mmol/L 3.5-5.1 [facility] Sodium [Moles/Vol] 139 mmol/L 136-145 [facility] WBC (Bld) [#/Vol] 8.4 10*3/uL 4.4-11.0 [facility] Bilirubin Test strip Ql (U)O rdered By: Jesica Mitchell on 07-20-2023 Bilirubin Ql (U) Negative Negative [facility] Determination of erythrocyte mean corpuscular volume (MCV)Ordered By: Jesica Mitchell on 07-20-2023 MCV (RBC) [Entitic vol] 94.5 fL 81-99 [facility] Erythrocyte distribution wid th ratioOrdered By: Jesica Mitchell on 07-20-2023 Erythrocyte distribution width (RBC) [Ratio] 13.7 % 11.6-14.6 [facility] Erythrocyte distribution wid th standard deviationOrdered By: Jesica Mitchell on 07-20-2023 Erythrocyte distribution width (RBC) [Entitic vol] 47.7 fL 35.1-43.9 [facility] Hematocrit Auto (Bld) [Volum e fraction]Ordered By: Jesica Mitchell on 07-20-2023 Hematocrit (Bld) [Volume fraction] 41.3 % 37-47 [facility] Immature granulocytes/100 WB C Auto (Bld)Ordered By: Jesica Mitchell on 07-20-2023 Immature granulocytes/100 WBC (Bld) 0.700 % 0.0-0.9 [facility] Comment on above: IG% - Immature Granu locytes (promyelocytes, myelocytes and metamyelocytes) > 1% indicates that a LEFT SHIFT is Present. Ketones Test strip Ql (U)Ord ered By: Jesica Mitchell on 07-20-2023 Ketones Ql (U) Negative Negative [facility] Laboratory - Chemistry and C hemistry - challengeOrdered By: Jesica Mitchell on 07-20-2023 CO2 [Moles/Vol] 26.0 mmol/L 21.0-32.0 [facility] Urea nitrogen/Creatinine [Mass ratio] 26.2 mg/mg 10-20 [facility] Laboratory - Hematology and Cell countsOrdered By: Jesica Mitchell on 07-20-2023 MCH (RBC) [Entitic mass] 31.8 pg 27.0-32.0 [facility] MCHC (RBC) [Mass/Vol] 33.7 g/dL 32-36 [facility] Nucleated RBC/100 WBC (Bld) [Ratio] 0 % 0-5 [facility] Platelet mean volume (Bld) [Entitic vol] 9.6 fL 6.2-12.0 [facility] Platelets (Bld) [#/Vol] 211 10*3/uL 150-450 [facility] Mucus LM Ql (Urine sed)Order ed By: Jesica Mitchell on 07-20-2023 Mucus Ql (Urine sed) 0 SEEN /hpf [facility] Nitrite Test strip Ql (U)Ord ered By: Jesica Mitchell on 07-20-2023 Nitrite Ql (U) Negative Negative [facility] No Panel InformationOrdered By: Jesica Mitchell on 07-20-2023 Urine RBC 0-5 SEEN /hpf 0-5 [facility] Estimated Creatinine Clearance Calc 50.00 ml/min [facility] Estimated GFR (MDRD) Amer 112 mL/min >60 [facility] Comment on above: GFR Calc Estimated GFR (MDRD) Non-Af Amer 92 mL/min >60 [facility] Comment on above: Non- GFR Calc Troponin I High Sensitivity 8 pg/mL 3.0-54.0 [facility] Comment on above: Please Note: New [place]iff[place] t Units and Gender Specific Reference Ranges. For more information see Policy Stat Procedure [place] High Sensitivity Troponin (TNIH) and attachments. Protein Test strip Ql (U)Ord ered By: Jesica Mitchell on 07-20-2023 Protein Ql (U) Negative Negative [facility] RBC Auto (Bld) [#/Vol]Ordere d By: Jesica Mitchell on 07-20-2023 RBC (Bld) [#/Vol] 4.37 10*6/uL 4.2-5.4 [facility] Serum or plasma calcium michelle urement (mass/volume)Ordered By: Jesica Mitchell on 07-20-2023 Calcium [Mass/Vol] 9.2 mg/dL 8.5-10.1 [facility] Serum or plasma creatinine m easurement (mass/volume)Ordered By: Jesica Mitchell on 07-20-2023 Creatinine [Mass/Vol] 0.65 mg/dL 0.55-1.02 [facility] Comment on above: The validity of the calculated GFR & GFRAA in patients over 70 years has not been determined. Clinical correlation is essential. Serum or plasma urea nitroge n measurement (mass/volume)Ordered By: Jesica Mitchell on 07-20-2023 Urea nitrogen [Mass/Vol] 17 mg/dL 7-18 [facility] Squamous epithelial cells de tection in urine sediment by light microscopyOrdered By: Jesica Mitchell on 07-20-2023 Epithelial cells.squamous LM Ql (Urine sed) 0 SEEN /hpf 5-10 [facility] Thin prep Papanicolaou smear with manual screeningOrdered By: Jesica Mitchell on 07-20-2023 Thin prep Papanicolaou smear with manual screening 2 5-15 [facility] Urine blood detectionOrdered By: Jesica Mitchell on 07-20-2023 RBC Ql (U) 50 /ul Negative [facility] Urine clarityOrdered By: Mary Lou Mitchell on 07-20-2023 Clarity (U) Sl. Cloudy Clear [facility] Urine color determinationOrd ered By: Jesica Mitchell on 07-20-2023 Color (U) Yellow Yellow [facility] Urine glucose detectionOrder ed By: Jesica Mitchell on 07-20-2023 Glucose Ql (U) Normal mg/dl Normal [facility] Urine leukocyte esterase det ection by dipstickOrdered By: Jesica Mitchell on 07-20-2023 Leukocyte esterase Test strip Ql (U) Negative Negative [facility] Urine pHOrdered By: Jesica alejandro on 07-20-2023 pH (U) 7.0 [pH] 5.0 - 8.0 [facility] Urine sediment bacteria coun t by microscopy (number/high power field)Ordered By: Jesica Mitchell on 07-20-2023 Bacteria LM.HPF (Urine sed) [#/Area] 0 /[HPF] None Seen [facility] Urine specific gravity measu rementOrdered By: Jesica Mitchell on 07-20-2023 Specific gravity (U) [Rel density] 1.005 1.002-1.030 [facility] Urine urobilinogen measureme ntOrdered By: Jesica Mitchell on 07-20-2023 Urobilinogen Ql (U) Normal mg/dl Normal [facility] CBC panel Auto (Bld)on 01-20 Erythrocyte distribution width (RBC) [Ratio] 13.4 % 11.5 - 15.0 % [facility] Hematocrit (Bld) [Volume fraction] 43.7 % 36.0 - 46.0 % [facility] Hemoglobin (Bld) [Mass/Vol] 14.9 g/dL 11.5 - 15.5 g/dL [facility] MCH (RBC) [Entitic mass] 32.8 pg 26. 0 - 34.0 pg [facility] MCHC (RBC) [Mass/Vol] 34.1 g/dL 30.5 - 36.0 g/dL [facility] MCV (RBC) [Entitic vol] 96.3 fL 80.0 - 100.0 fL [facility] Nucleated RBC (Bld) [#/Vol] <0.01 k/uL [facility] Platelet mean volume (Bld) [Entitic vol] 9.6 fL 9.0 - 12.7 fL [facility] Platelets (Bld) [#/Vol] 232 10*3/uL 150 - 400 k/uL [facility] RBC (Bld) [#/Vol] 4.54 10*6/uL 3.90 - 5.2 0 m/uL [facility] WBC (Bld) [#/Vol] 9.62 10*3/uL 3.70 - 11. 00 k/uL [facility] Comprehensive metabolic 2000 panelon 01-20-2023 Albumin [Mass/Vol] 4.4 g/dL 3.9 - 4.9 g/dL [facility] ALP [Catalytic activity/Vol] 86 U/L 34 - 123 U/L [facility] ALT [Catalytic activity/Vol] 18 U/L 7 - 38 U/L [facility] Anion gap [Moles/Vol] 10 mmol/L 9 - 18 mmol/L [facility] AST [Catalytic activity/Vol] 18 U/L 13 - 35 U/L [facility] Bilirubin [Mass/Vol] 0.2 mg/dL 0.2 - 1 .3 mg/dL [facility] Calcium [Mass/Vol] 10.0 mg/dL 8.5 - 10. 2 mg/dL [facility] Chloride [Moles/Vol] 104 mmol/L 97 - 10 5 mmol/L [facility] CO2 [Moles/Vol] 26 mmol/L 22 - 30 mmol/L [facility] Creatinine [Mass/Vol] 0.75 mg/dL 0.58 - 0.96 mg/dL [facility] Estimated Glomerular Filtration Rate 79 mL/min/1.73m >=60 mL/min/1.73m [facility] Glucose [Mass/Vol] 107 mg/dL High 74 - 99 mg/dL [facility] Potassium [Moles/Vol] 4.7 mmol/L 3.7 - 5.1 mmol/L [facility] Protein [Mass/Vol] 6.8 g/dL 6.3 - 8.0 g/dL [facility] Sodium [Moles/Vol] 140 mmol/L 136 - 144 mmol/L [facility] Urea nitrogen [Mass/Vol] 17 mg/dL 7 - 21 mg/d L [facility] XR FOOT GENERAL 3V AP/LAT/OB L LEFTon 12-23-2022 [facility] Absolute lymphocyte countOrd ered By: Nick Murphy on 11-21-2022 Lymphocytes Auto (Unsp spec) [#/Vol] 3.76 10*3/uL 0.83-4.51 [facility] Basophil percentageOrdered B y: Nick Murphy on 11-21-2022 Basophil percentage < 10.0 umol/L 11-[address] [facility] Basophils/100 WBC (Bld) 0.6 % 0-1 [facility] Bilirubin [Mass/Vol] 0.40 mg/dL 0.20-1.00 [facility] Comment on above: For patients on eltr ombopag therapy, use of Dimension [place] TBIL is not recommended. Chloride [Moles/Vol] 108 mmol/L 98-107 [facility] Eosinophils/100 WBC (Bld) 1.7 % 0-5 [facility] Glucose [Mass/Vol] 103 mg/dL 74-106 [facility] Comment on above: Fasting Glucose resu lt from 100 to 125 mg/dL suggests IMPAIRED HOMEOSTASIS per A.D.A. criteria. Neutrophils (Bld) [#/Vol] 4.6 10*3/uL 2.0-7.7 [facility] Neutrophils/100 WBC (Bld) 49.4 % 47-70 [facility] Potassium [Moles/Vol] 4.1 mmol/L 3.5-5.1 [facility] Protein [Mass/Vol] 6.8 g/dL 6.4-8.2 [facility] Sodium [Moles/Vol] 140 mmol/L 136-145 [facility] WBC (Bld) [#/Vol] 9.4 10*3/uL 4.4-11.0 [facility] Basophil percentage 0 SEEN /hpf 0-5 [facility] Bilirubin Test strip Ql (U)O rdered By: Nick Murphy on 11-21-2022 Bilirubin Ql (U) Negative Negative [facility] Blood erythrocytes count (nu mber/volume)Ordered By: Nick Murphy on 11-21-2022 RBC (Bld) [#/Vol] 4.39 10*6/uL 4.2-5.4 [facility] Blood hemoglobin measurement (mass/volume)Ordered By: Nick Murphy on 11-21-2022 Hemoglobin (Bld) [Mass/Vol] 14.2 g/dL 12.0-15.0 [facility] Blood lymphocytes/100 leukoc ytesOrdered By: Nick Murphy on 11-21-2022 Lymphocytes/100 WBC (Bld) 40.1 % 19-41 [facility] Blood monocytes/100 leukocyt esOrdered By: Nick Murphy on 11-21-2022 Monocytes/100 WBC (Bld) 7.5 % 0-10 [facility] Blood platelet mean volumeOr dered By: Nick Murphy on 11-21-2022 Platelet mean volume (Bld) [Entitic vol] 9.5 fL 6.2-12.0 [facility] Determination of erythrocyte mean corpuscular volume (MCV)Ordered By: Nick Murphy on 11-21-2022 MCV (RBC) [Entitic vol] 97.7 fL 81-99 [facility] Direct bilirubinOrdered By: Nick Murphy on 11-21-2022 Bilirubin.direct [Mass/Vol] 0.09 mg/dL 0.00-0.30 [facility] Hematocrit Auto (Bld) [Volum e fraction]Ordered By: Nick Murphy on 11-21-2022 Hematocrit (Bld) [Volume fraction] 42.9 % 37-47 [facility] Ketones Test strip Ql (U)Ord ered By: Nick Murphy on 11-21-2022 Ketones Ql (U) Negative Negative [facility] Laboratory - Chemistry and C hemistry - challengeOrdered By: Nick Murphy on 11-21-2022 ALP [Catalytic activity/Vol] 73 U/L 45-117 [facility] ALT [Catalytic activity/Vol] 20 U/L 13-56 [facility] CO2 [Moles/Vol] 26.0 mmol/L 21.0-32.0 [facility] Globulin (S) [Mass/Vol] 3.2 g/dL 2.2-4.2 [facility] Urea nitrogen/Creatinine [Mass ratio] 23.7 mg/mg 10-20 [facility] Laboratory - Hematology and Cell countsOrdered By: Nick Murphy on 11-21-2022 Erythrocyte distribution width (RBC) [Entitic vol] 47.3 fL 35.1-43.9 [facility] Erythrocyte distribution width (RBC) [Ratio] 13.4 % 11.6-14.6 [facility] Immature granulocytes/100 WBC (Bld) 0.700 % 0.0-0.9 [facility] Comment on above: IG% - Immature Granu locytes (promyelocytes, myelocytes and metamyelocytes) > 1% indicates that a LEFT SHIFT is Present. MCH (RBC) [Entitic mass] 32.3 pg 27.0-32.0 [facility] Nucleated RBC/100 WBC (Bld) [Ratio] 0 % 0-5 [facility] MCHC Auto (RBC) [Mass/Vol]Or dered By: Nick Murphy on 11-21-2022 MCHC (RBC) [Mass/Vol] 33.1 g/dL 32-36 [facility] Mucus LM Ql (Urine sed)Order ed By: Nick Murphy on 11-21-2022 Mucus Ql (Urine sed) 0 SEEN /hpf [facility] Nitrite Test strip Ql (U)Ord ered By: Nick Murphy on 11-21-2022 Nitrite Ql (U) Negative Negative [facility] No Panel InformationOrdered By: Nick Murphy on 11-21-2022 Estimated Creatinine Clearance Calc 41.40 ml/min [facility] Estimated GFR (MDRD) Amer 88 mL/min >60 [facility] Comment on above: GFR Calc Estimated GFR (MDRD) Non-Af Amer 72 mL/min >60 [facility] Comment on above: Non- GFR Calc Platelets bldOrdered By: Alexander Murphy on 11-21-2022 Platelets (Bld) [#/Vol] 210 10*3/uL 150-450 [facility] Protein Test strip Ql (U)Ord ered By: Nick Murphy on 11-21-2022 Protein Ql (U) Negative Negative [facility] Serum or plasma albumin michelle urement (mass/volume)Ordered By: Nick Murphy on 11-21-2022 Albumin [Mass/Vol] 3.6 g/dL 3.2-5.0 [facility] Serum or plasma calcium michelle urement (mass/volume)Ordered By: Nick Murphy on 11-21-2022 Calcium [Mass/Vol] 9.3 mg/dL 8.5-10.1 [facility] Serum or plasma creatinine m easurement (mass/volume)Ordered By: Nick Murphy on 11-21-2022 Creatinine [Mass/Vol] 0.80 mg/dL 0.55-1.02 [facility] Comment on above: The validity of the calculated GFR & GFRAA in patients over 70 years has not been determined. Clinical correlation is essential. Serum or plasma urea nitroge n measurement (mass/volume)Ordered By: Nick Murphy on 11-21-2022 Urea nitrogen [Mass/Vol] 19 mg/dL 7-18 [facility] Squamous epithelial cells de tection in urine sediment by light microscopyOrdered By: Nick Murphy on 11-21-2022 Epithelial cells.squamous LM Ql (Urine sed) 0 SEEN /hpf 5-10 [facility] Thin prep Papanicolaou smear with manual screeningOrdered By: Nick Murphy on 11-21-2022 Thin prep Papanicolaou smear with manual screening 11 U/L 15-37 [facility] Thin prep Papanicolaou smear with manual screening 6 5-15 [facility] Urine blood detectionOrdered By: Nick Murphy on 11-21-2022 RBC Ql (U) 50 /ul Negative [facility] RBC Ql (U) 0 SEEN /hpf 0-5 [facility] Urine clarityOrdered By: Alexander Murphy on 11-21-2022 Clarity (U) Clear Clear [facility] Urine color determinationOrd ered By: Nick Murphy on 11-21-2022 Color (U) Yellow Yellow [facility] Urine glucose detectionOrder ed By: Nick Murphy on 11-21-2022 Glucose Ql (U) Normal mg/dl Normal [facility] Urine leukocyte esterase det ection by dipstickOrdered By: Nick Murphy on 11-21-2022 Leukocyte esterase Test strip Ql (U) Negative Negative [facility] Urine pHOrdered By: Nick sylvester on 11-21-2022 pH (U) 7.0 [pH] 5.0 - 8.0 [facility] Urine sediment bacteria coun t by microscopy (number/high power field)Ordered By: Nick Murphy on 11-21-2022 Bacteria LM.HPF (Urine sed) [#/Area] 0 /[HPF] None Seen [facility] Urine specific gravity measu rementOrdered By: Nick Murphy on 06-30-2023 Specific gravity (U) [Rel density] 1.010 1.002-1.030 [facility] Urobilinogen Auto test strip Ql (U)Ordered By: Nick Murphy on 11-21-2022 Urobilinogen Ql (U) Normal mg/dl Normal [facility] FLORI SCREENINGon 09-18-2022 [facility] US THYROID/PARATHYROIDon [facility] CBC panel Auto (Bld)on 01-09 Erythrocyte distribution width (RBC) [Ratio] 13.5 % 11.5 - 15.0 % [facility] Hematocrit (Bld) [Volume fraction] 43.9 % 36.0 - 46.0 % [facility] Hemoglobin (Bld) [Mass/Vol] 14.9 g/dL 11.5 - 15.5 g/dL [facility] MCH (RBC) [Entitic mass] 33.2 pg 26. 0 - 34.0 pg [facility] MCHC (RBC) [Mass/Vol] 33.9 g/dL 30.5 - 36.0 g/dL [facility] MCV (RBC) [Entitic vol] 97.8 fL 80.0 - 100.0 fL [facility] Nucleated RBC (Bld) [#/Vol] <0.01 k/uL [facility] Platelet mean volume (Bld) [Entitic vol] 9.7 fL 9.0 - 12.7 fL [facility] Platelets (Bld) [#/Vol] 258 10*3/uL 150 - 400 k/uL [facility] RBC (Bld) [#/Vol] 4.49 10*6/uL 3.90 - 5.2 0 m/uL [facility] WBC (Bld) [#/Vol] 13.41 10*3/uL High 3.70 - 11 .00 k/uL [facility] Comprehensive metabolic 2000 panelon 01-09-2022 Albumin [Mass/Vol] 4.5 g/dL 3.9 - 4.9 g/dL [facility] ALP [Catalytic activity/Vol] 76 U/L 34 - 123 U/L [facility] ALT [Catalytic activity/Vol] 26 U/L 7 - 38 U/L [facility] Anion gap [Moles/Vol] 11 mmol/L 9 - 18 mmol/L [facility] AST [Catalytic activity/Vol] 24 U/L 13 - 35 U/L [facility] Bilirubin [Mass/Vol] 0.3 mg/dL 0.2 - 1 .3 mg/dL [facility] Calcium [Mass/Vol] 9.8 mg/dL 8.5 - 10. 2 mg/dL [facility] Chloride [Moles/Vol] 103 mmol/L 97 - 10 5 mmol/L [facility] CO2 [Moles/Vol] 25 mmol/L 22 - 30 mmol/L [facility] Creatinine [Mass/Vol] 0.71 mg/dL 0.58 - 0.96 mg/dL [facility] Estimated Glomerular Filtration Rate 84 mL/min/1.73m >=60 mL/min/1.73m [facility] Glucose [Mass/Vol] 106 mg/dL High 74 - 99 mg/dL [facility] Potassium [Moles/Vol] 4.7 mmol/L 3.7 - 5.1 mmol/L [facility] Protein [Mass/Vol] 6.9 g/dL 6.3 - 8.0 g/dL [facility] Sodium [Moles/Vol] 139 mmol/L 136 - 144 mmol/L [facility] Urea nitrogen [Mass/Vol] 18 mg/dL 7 - 21 mg/d L [facility] XR RIBS/CHEST 3V AP RIB/OBLS /CXR LEFTon 01-09-2022 [facility] XR Ribs - left Views and Rachna st PAon 01-09-2022 IMPRESSION: No evidence of acute left rib fracture. Patient can be reevaluated in 10-14 days if symptoms persist. Timber Cruiser: PSCJanuary Transcribe Date/Time: Jan 09 2022 11:35A Dictated by : SURINDER HINOJOSA MD This examination was interpreted and the report reviewed and electronically signed by: SURINDER HINOJOSA MD on Jan 09 2022 11:41AM [facility] DIVISION OF RADIOLOGY * * *Final Report* * * DATE OF EXAM: Jan 09 2022 11:04AM [id number] - XR RIB/CHST 3V AP RIB/OBL/CHST L / PROCEDURE REASON: Rib pain on left side * * * * Physician Interpretation * * * * XR RIB/CHST 3V AP RIB/OBL/CHST L EXAM DATE/TIME: 01/09/2022 11:04 AM COMPARISON: None. CLINICAL INDICATION/HISTORY: Rib pain. TECHNIQUE: AP views centered high and low and oblique view of left ribs are presented for interpretation. PA view of the chest is also present. FINDINGS: There is no evidence of acute left rib fracture. There is no pneumothorax or pleural effusion. A calcified granuloma visualized in the right lower lung. There appears be a coronary stent in place. Calcified lymph nodes seen in the mediastinum. The bones are osteopenic. DIVISION OF RADIOLOGY Provider, [facility] - 01/09/2022 * * *Final Report* * * DATE OF EXAM: Jan 09 2022 11:04AM [id number] - XR RIB/CHST 3V AP RIB/OBL/CHST L / PROCEDURE REASON: Rib pain on left side * * * * Physician Interpretation * * * * XR RIB/CHST 3V AP RIB/OBL/CHST L EXAM DATE/TIME: 01/09/2022 11:04 AM COMPARISON: None. CLINICAL INDICATION/HISTORY: Rib pain. TECHNIQUE: AP views centered high and low and oblique view of left ribs are presented for interpretation. PA view of the chest is also present. FINDINGS: There is no evidence of acute left rib fracture. There is no pneumothorax or pleural effusion. A calcified granuloma visualized in the right lower lung. There appears be a coronary stent in place. Calcified lymph nodes seen in the mediastinum. The bones are osteopenic. IMPRESSION IMPRESSION: No evidence of acute left rib fracture. Patient can be reevaluated in 10-14 days if symptoms persist. Timber Cruiser[facility] Transcribe Date/Time: Jan 09 2022 11:35A Dictated by : SURINDER HINOJOSA MD This examination was interpreted and the report reviewed and electronically signed by: SURINDER HINOJOSA MD on Jan 09 2022 11:41AM EST [facility] Radiology Study observation (narrative) Gorge Mondragon XR Ribs - left Views and Rachna st PAOrdered By: [facility] Provider on 01-09-2022 [facility] Absolute lymphocyte counton 10-10-2021 Lymphocytes Auto (Unsp spec) [#/Vol] 4.00 10*3/uL 0.83-4.51 [facility] Work Phone: Basophil percentageon 2021 Chloride [Moles/Vol] 107 mmol/L 98-107 [facility] Work Phone: Glucose [Mass/Vol] 103 mg/dL 74-106 [facility] Work Phone: Comment on above: Fasting Glucose resu lt from 100 to 125 mg/dL suggests IMPAIRED HOMEOSTASIS per A.D.A. criteria. Potassium [Moles/Vol] 3.7 mmol/L 3.5-5.1 [facility] Work Phone: Sodium [Moles/Vol] 141 mmol/L 136-145 [facility] Work Phone: Basophil percentage 0 SEEN /hpf [facility] Work Phone: Basophils/100 WBC (Bld) 0.6 % 0-1 [facility] Work Phone: Eosinophils/100 WBC (Bld) 1.0 % 0-5 [facility] Work Phone: Neutrophils (Bld) [#/Vol] 5.8 10*3/uL 2.0-7.7 [facility] Work Phone: Neutrophils/100 WBC (Bld) 52.9 % 47-70 [facility] Work Phone: WBC (Bld) [#/Vol] 10.9 10*3/uL 4.4-11.0 [facility] Work Phone: [phone] Bilirubin Test strip Ql (U)o n 10-10-2021 Bilirubin Ql (U) Negative Negative [facility] Work Phone: Blood erythrocytes count (nu mber/volume)on 10-10-2021 RBC (Bld) [#/Vol] 4.18 10*6/uL 4.2-5.4 [facility] Work Phone: Blood hemoglobin measurement (mass/volume)on 10-10-2021 Hemoglobin (Bld) [Mass/Vol] 14.3 g/dL 12.0-15.0 [facility] Work Phone: Blood lymphocytes/100 leukoc yteson 10-10-2021 Lymphocytes/100 WBC (Bld) 36.7 % 19-41 [facility] Work Phone: Blood monocytes/100 leukocyt eson 10-10-2021 Monocytes/100 WBC (Bld) 7.6 % 0-10 [facility] Work Phone: Blood platelet mean volumeon 10-10-2021 Platelet mean volume (Bld) [Entitic vol] 9.6 fL 6.2-12.0 [facility] Work Phone: Determination of erythrocyte mean corpuscular volume (MCV)on 10-10-2021 MCV (RBC) [Entitic vol] 99.8 fL 81-99 [facility] Work Phone: Hematocrit Auto (Bld) [Volum e fraction]on 10-10-2021 Hematocrit (Bld) [Volume fraction] 41.7 % 37-47 [facility] Work Phone: Ketones Test strip Ql (U)on 10-10-2021 Ketones Ql (U) Negative Negative [facility] Work Phone: Laboratory - Chemistry and C hemistry - challengeon 10-10-2021 CO2 [Moles/Vol] 29.0 mmol/L 21.0-32.0 [facility] Work Phone: Urea nitrogen/Creatinine [Mass ratio] 24.6 mg/mg 10-20 [facility] Work Phone: Laboratory - Hematology and Cell countson 10-10-2021 Erythrocyte distribution width (RBC) [Entitic vol] 48.3 fL 35.1-43.9 [facility] Work Phone: [phone] Erythrocyte distribution width (RBC) [Ratio] 15.1 % 11.6-14.6 [facility] Work Phone: Immature granulocytes/100 WBC (Bld) 1.200 % 0.0-0.9 [facility] Work Phone: Comment on above: IG% - Immature Granu locytes (promyelocytes, myelocytes and metamyelocytes) > 1% indicates that a LEFT SHIFT is Present. MCH (RBC) [Entitic mass] 34.2 pg 27.0-32.0 [facility] Work Phone: Nucleated RBC/100 WBC (Bld) [Ratio] 0 % 0-5 [facility] Work Phone: MCHC Auto (RBC) [Mass/Vol]on 10-10-2021 MCHC (RBC) [Mass/Vol] 34.3 g/dL 32-36 [facility] Work Phone: Mucus LM Ql (Urine sed)on Mucus Ql (Urine sed) 0 SEEN /hpf [facility] Work Phone: Nitrite Test strip Ql (U)on 10-10-2021 Nitrite Ql (U) Negative Negative [facility] Work Phone: No Panel Informationon 10-10 Estimated Creatinine Clearance Calc 35.26 ml/min [facility] Work Phone: Estimated GFR (MDRD) Amer 97 mL/min >60 [facility] Work Phone: Comment on above: GFR Calc Estimated GFR (MDRD) Non-Af Amer 81 mL/min >60 [facility] Work Phone: Comment on above: Non- GFR Calc Troponin I High Sensitivity 8 pg/mL 3.0-54.0 [facility] Work Phone: Comment on above: Please Note: New Tiffanie t Units and Gender Specific Reference Ranges. For more information see Policy Stat Procedure [place] High Sensitivity Troponin (TNIH) and attachments. Platelets bldon 10-10-2021 Platelets (Bld) [#/Vol] 222 10*3/uL 150-450 [facility] Work Phone: [phone] Protein Test strip Ql (U)on 10-10-2021 Protein Ql (U) Negative Negative [facility] Work Phone: [phone] Serum or plasma calcium michelle urement (mass/volume)on 10-10-2021 Calcium [Mass/Vol] 9.3 mg/dL 8.5-10.1 [facility] Work Phone: Serum or plasma creatinine m easurement (mass/volume)on 10-10-2021 Creatinine [Mass/Vol] 0.73 mg/dL 0.55-1.02 [facility] Work Phone: Comment on above: The validity of the calculated GFR & GFRAA in patients over 70 years has not been determined. Clinical correlation is essential. Serum or plasma urea nitroge n measurement (mass/volume)on 10-10-2021 Urea nitrogen [Mass/Vol] 18 mg/dL 7-18 [facility] Work Phone: Squamous epithelial cells de tection in urine sediment by light microscopyon 10-10-2021 Epithelial cells.squamous LM Ql (Urine sed) 0-5 SEEN /hpf [facility] Work Phone: Thin prep Papanicolaou smear with manual screeningon 10-10-2021 Thin prep Papanicolaou smear with manual screening 5 5-15 [facility] Work Phone: Urine blood detectionon 09-22 RBC Ql (U) 50 /ul Negative [facility] Work Phone: RBC Ql (U) 0-5 SEEN /hpf [facility] Work Phone: Urine clarityon 10-10-2021 Clarity (U) Clear Clear [facility] Work Phone: Urine color determinationon 10-10-2021 Color (U) Straw Yellow [facility] Work Phone: Urine glucose detectionon Glucose Ql (U) Normal mg/dl Normal [facility] Work Phone: Urine leukocyte esterase det ection by dipstickon 10-10-2021 Leukocyte esterase Test strip Ql (U) Negative Negative [facility] Work Phone: Urine pHon 10-10-2021 pH (U) 7.0 [pH] [facility] Work Phone: Urine sediment bacteria coun t by microscopy (number/high power field)on 10-10-2021 Bacteria LM.HPF (Urine sed) [#/Area] 0 /[HPF] None Seen [facility] Work Phone: Urine specific gravity measu rementon 10-10-2021 Specific gravity (U) [Rel density] 1.005 [facility] Work Phone: Urobilinogen Auto test strip Ql (U)on 10-10-2021 Urobilinogen Ql (U) Normal mg/dl Normal [facility] Work Phone: Absolute lymphocyte counton 10-07-2021 Lymphocytes Auto (Unsp spec) [#/Vol] 5.18 10*3/uL 0.83-4.51 [facility] Work Phone: Basophil percentageon 2021 Basophil percentage 0 SEEN /hpf [facility] Work Phone: Basophils/100 WBC (Bld) 0.4 % 0-1 [facility] Work Phone: Chloride [Moles/Vol] 106 mmol/L 98-107 [facility] Work Phone: Eosinophils/100 WBC (Bld) 0.6 % 0-5 [facility] Work Phone: Glucose [Mass/Vol] 97 mg/dL 74-106 [facility] Work Phone: Neutrophils (Bld) [#/Vol] 12.5 10*3/uL 2.0-7.7 [facility] Work Phone: Neutrophils/100 WBC (Bld) 65.0 % 47-70 [facility] Work Phone: Potassium [Moles/Vol] 3.7 mmol/L 3.5-5.1 [facility] Work Phone: Sodium [Moles/Vol] 140 mmol/L 136-145 [facility] Work Phone: WBC (Bld) [#/Vol] 19.2 10*3/uL 4.4-11.0 [facility] Work Phone: Bilirubin Test strip Ql (U)o n 10-07-2021 Bilirubin Ql (U) Negative Negative [facility] Work Phone: Blood erythrocytes count (nu mber/volume)on 10-07-2021 RBC (Bld) [#/Vol] 3.93 10*6/uL 4.2-5.4 [facility] Work Phone: Blood hemoglobin measurement (mass/volume)on 10-07-2021 Hemoglobin (Bld) [Mass/Vol] 14.4 g/dL 12.0-15.0 [facility] Work Phone: [phone] Blood lymphocytes/100 leukoc yteson 10-07-2021 Lymphocytes/100 WBC (Bld) 26.9 % 19-41 [facility] Work Phone: [phone] Blood monocytes/100 leukocyt eson 10-07-2021 Monocytes/100 WBC (Bld) 6.0 % 0-10 [facility] Work Phone: Blood platelet mean volumeon 10-07-2021 Platelet mean volume (Bld) [Entitic vol] 9.5 fL 6.2-12.0 [facility] Work Phone: Determination of erythrocyte mean corpuscular volume (MCV)on 10-07-2021 MCV (RBC) [Entitic vol] 101.8 fL 81-99 [facility] Work Phone: Hematocrit Auto (Bld) [Volum e fraction]on 10-07-2021 Hematocrit (Bld) [Volume fraction] 40.0 % 37-47 [facility] Work Phone: Ketones Test strip Ql (U)on 10-07-2021 Ketones Ql (U) Negative Negative [facility] Work Phone: Laboratory - Chemistry and C hemistry - challengeon 10-07-2021 CO2 [Moles/Vol] 28.0 mmol/L 21.0-32.0 [facility] Work Phone: Urea nitrogen/Creatinine [Mass ratio] 31.6 mg/mg 10-20 [facility] Work Phone: Laboratory - Hematology and Cell countson 10-07-2021 Anisocytosis Ql (Bld) 1+ [facility] Work Phone: [phone] Erythrocyte distribution width (RBC) [Entitic vol] 47.9 fL 35.1-43.9 [facility] Work Phone: [phone] Erythrocyte distribution width (RBC) [Ratio] 16.1 % 11.6-14.6 [facility] Work Phone: [phone] Immature granulocytes/100 WBC (Bld) 1.100 % 0.0-0.9 [facility] Work Phone: [phone] Comment on above: IG% - Immature Granu locytes (promyelocytes, myelocytes and metamyelocytes) > 1% indicates that a LEFT SHIFT is Present. MCH (RBC) [Entitic mass] 36.6 pg 27.0-32.0 [facility] Work Phone: [phone] Nucleated RBC/100 WBC (Bld) [Ratio] 0 % 0-5 [facility] Work Phone: [phone] MCHC Auto (RBC) [Mass/Vol]on 10-07-2021 MCHC (RBC) [Mass/Vol] 36.0 g/dL 32-36 [facility] Work Phone: Macrocytes detectionon 10-07 Macrocytes Ql (Bld) 1+ [facility] Work Phone: [phone] Mucus LM Ql (Urine sed)on Mucus Ql (Urine sed) 0 SEEN /hpf [facility] Work Phone: [phone] Nitrite Test strip Ql (U)on 10-07-2021 Nitrite Ql (U) Negative Negative [facility] Work Phone: [phone] No Panel Informationon 10-07 Estimated Creatinine Clearance Calc 35.26 ml/min [facility] Work Phone: [phone] Estimated GFR (MDRD) Amer 93 mL/min >60 [facility] Work Phone: [phone] Comment on above: GFR Calc Estimated GFR (MDRD) Non-Af Amer 77 mL/min >60 [facility] Work Phone: Comment on above: Non- GFR Calc Platelets bldon 10-07-2021 Platelets (Bld) [#/Vol] 233 10*3/uL 150-450 [facility] Work Phone: Protein Test strip Ql (U)on 10-07-2021 Protein Ql (U) Negative Negative [facility] Work Phone: Serum or plasma calcium michelle urement (mass/volume)on 10-07-2021 Calcium [Mass/Vol] 9.2 mg/dL 8.5-10.1 [facility] Work Phone: Serum or plasma creatinine m easurement (mass/volume)on 10-07-2021 Creatinine [Mass/Vol] 0.76 mg/dL 0.55-1.02 [facility] Work Phone: Comment on above: The validity of the calculated GFR & GFRAA in patients over 70 years has not been determined. Clinical correlation is essential. Serum or plasma urea nitroge n measurement (mass/volume)on 10-07-2021 Urea nitrogen [Mass/Vol] 24 mg/dL 7-18 [facility] Work Phone: Squamous epithelial cells de tection in urine sediment by light microscopyon 10-07-2021 Epithelial cells.squamous LM Ql (Urine sed) 0 SEEN /hpf [facility] Work Phone: Thin prep Papanicolaou smear with manual screeningon 10-07-2021 Thin prep Papanicolaou smear with manual screening 6 5-15 [facility] Work Phone: [phone] Urine blood detectionon 09-22 RBC Ql (U) 50 /ul Negative [facility] Work Phone: [phone] RBC Ql (U) 0-5 SEEN /hpf [facility] Work Phone: Urine clarityon 10-07-2021 Clarity (U) Clear Clear [facility] Work Phone: [phone] Urine color determinationon 10-07-2021 Color (U) Yellow Yellow [facility] Work Phone: Urine glucose detectionon Glucose Ql (U) Normal mg/dl Normal [facility] Work Phone: Urine leukocyte esterase det ection by dipstickon 10-07-2021 Leukocyte esterase Test strip Ql (U) Negative Negative [facility] Work Phone: Urine pHon 10-07-2021 pH (U) 6.5 [pH] [facility] Work Phone: Urine sediment bacteria coun t by microscopy (number/high power field)on 10-07-2021 Bacteria LM.HPF (Urine sed) [#/Area] 1 /[HPF] None Seen [facility] Work Phone: Urine specific gravity measu rementon 10-07-2021 Specific gravity (U) [Rel density] 1.010 [facility] Work Phone: Urobilinogen Auto test strip Ql (U)on 10-07-2021 Urobilinogen Ql (U) Normal mg/dl Normal [facility] Work Phone: Vital Signs Date Time Vital Sign Value Performing Clinician Faci lity 10-28-2024 15:35-0400 Diastolic blood pressure 75 mm[Hg] Eliana Carrera CAR SALESMAN.AUDIO VISUAL COORDINATOR Work Phone: [facility] 10-28-2024 15:35-0400 Heart rate 91 /min Eliana Carrera CAR SALESMAN.AUDIO VISUAL COORDINATOR Work Phone: [facility] 10-28-2024 15:35-0400 SaO2% (BldA) [Mass fraction] 96 % Eliana Carrera CAR SALESMAN.AUDIO VISUAL COORDINATOR Work Phone: [facility] 10-28-2024 15:35-0400 Systolic blood pressure 135 mm[Hg] Eliana Carrera CAR SALESMAN.AUDIO VISUAL COORDINATOR Work Phone: [facility] 10-04-2024 11:21-0400 Body mass index (BMI) [Ratio] 28.6 kg/m2 Tamiko Buchanan CAR SALESMAN.AUDIO VISUAL COORDINATOR Work Phone: [facility] 10-04-2024 11:21-0400 Body weight 71.5 kg Tamiko Buchanan CAR SALESMAN.AUDIO VISUAL COORDINATOR Work Phone: [facility] 10-04-2024 11:21-0400 Diastolic blood pressure 80 mm[Hg] Tamiko Dewayne CAR SALESMAN.AUDIO VISUAL COORDINATOR Work Phone: [facility] 10-04-2024 11:21-0400 Heart rate 80 /min Tamiko CarrascoDewayne CAR SALESMAN.AUDIO VISUAL COORDINATOR Work Phone: [facility] 10-04-2024 11:21-0400 Respiratory rate 14 /min Tamiko Buchanan CAR SALESMAN.AUDIO VISUAL COORDINATOR Work Phone: [facility] 10-04-2024 11:21-0400 SaO2% (BldA) [Mass fraction] 98 % Tamiko Buchanan CAR SALESMAN.AUDIO VISUAL COORDINATOR Work Phone: [facility] 10-04-2024 11:21-0400 Systolic blood pressure 116 mm[Hg] Tamiko CarrascoDewayne CAR SALESMAN.AUDIO VISUAL COORDINATOR Work Phone: [facility] 09-29-2024 12:02-0400 Body temperature 97.5 [degF] Dr. Bennett Weir MD Work Phone: [facility] 09-29-2024 12:02-0400 Diastolic blood pressure 67 mm[Hg] Dr. Bennett Weir MD Work Phone: [facility] 09-29-2024 12:02-0400 Heart rate 77 /min Dr. Bennett Weir MD Work Phone: [facility] 09-29-2024 12:02-0400 Respiratory rate 15 /min Dr. Bennett Weir MD Work Phone: [facility] 09-29-2024 12:02-0400 SaO2% (BldA) [Mass fraction] 98 % Dr. Bennett Weir MD Work Phone: [facility] 09-29-2024 12:02-0400 Systolic blood pressure 143 mm[Hg] Dr. Bennett Weir MD Work Phone: [facility] 09-29-2024 08:57-0400 Body height 157.[address] Bennett Weir MD Work Phone: [facility] 09-29-2024 08:57-0400 Body mass index (BMI) [Ratio] 29.5 kg/m2 Dr. Bennett Weir MD Work Phone: [facility] 09-29-2024 08:57-0400 Body weight 73.[address] Bennett Weir MD Work Phone: [facility] 09-05-2024 13:43-0400 Diastolic blood pressure 58 mm[Hg] Kirsten Leon DO Work Phone: [facility] 09-05-2024 13:43-0400 Heart rate 90 /min Kirsten Leon DO Work Phone: [facility] 09-05-2024 13:43-0400 SaO2% (BldA) [Mass fraction] 98 % Kirsten Leon DO Work Phone: [facility] 09-05-2024 13:43-0400 Systolic blood pressure 138 mm[Hg] Kirsten Loen DO Work Phone: [facility] 08-29-2024 14:27-0400 Diastolic blood pressure 67 mm[Hg] Kirsten Leon DO Work Phone: [facility] 08-29-2024 14:27-0400 Heart rate 93 /min Kirsten Leon DO Work Phone: [facility] 08-29-2024 14:27-0400 SaO2% (BldA) [Mass fraction] 98 % Kirsten Leon DO Work Phone: [facility] 08-29-2024 14:27-0400 Systolic blood pressure 154 mm[Hg] Kirsten Leon DO Work Phone: [facility] 08-24-2024 11:07-0400 Body mass index (BMI) [Ratio] 28.56 kg/m2 Tamiko Dewayne CAR SALESMAN.AUDIO VISUAL COORDINATOR Work Phone: [facility] 08-24-2024 11:07-0400 Body weight 71.4 kg Tamiko Buchanan CAR SALESMAN.AUDIO VISUAL COORDINATOR Work Phone: [facility] 08-24-2024 11:07-0400 Diastolic blood pressure 62 mm[Hg] Tamiko Buchanan CAR SALESMAN.AUDIO VISUAL COORDINATOR Work Phone: [facility] 08-24-2024 11:07-0400 Heart rate 94 /min Tamiko Dewayne CAR SALESMAN.AUDIO VISUAL COORDINATOR Work Phone: [facility] 08-24-2024 11:07-0400 Respiratory rate 12 /min Tamiko Dewayne CAR SALESMAN.AUDIO VISUAL COORDINATOR Work Phone: [facility] 08-24-2024 11:07-0400 SaO2% (BldA) [Mass fraction] 97 % [facility] CAR SALESMAN.AUDIO VISUAL COORDINATOR Work Phone: [facility] 08-24-2024 11:07-0400 Systolic blood pressure 118 mm[Hg] Tamiko Buchanan CAR SALESMAN.AUDIO VISUAL COORDINATOR Work Phone: [facility] 08-19-2024 03:33-0400 Body temperature 98.2 [degF] Dr. Bennett Weir MD Work Phone: [facility] 08-19-2024 03:33-0400 Diastolic blood pressure 57 mm[Hg] Dr. Bennett Weir MD Work Phone: [facility] 08-19-2024 03:33-0400 Heart rate 87 /min Dr. Bennett Weir MD Work Phone: [facility] 08-19-2024 03:33-0400 Respiratory rate 16 /min Dr. Bennett Weir MD Work Phone: [facility] 08-19-2024 03:33-0400 SaO2% (BldA) [Mass fraction] 95 % Dr. Bennett Weir MD Work Phone: [facility] 08-19-2024 03:33-0400 Systolic blood pressure 144 mm[Hg] Dr. Bennett Weir MD Work Phone: [facility] 08-19-2024 00:30-0400 Body height 159.[address] Bennett Weir MD Work Phone: [facility] 08-19-2024 00:30-0400 Body mass index (BMI) [Ratio] 29.2 kg/m2 Dr. Bennett Weir MD Work Phone: [facility] 08-19-2024 00:30-0400 Body weight 74.[address] Bennett Weir MD Work Phone: [facility] 06-23-2024 14:16-0500 Body mass index (BMI) [Ratio] 29.2 kg/m2 Tamiko Dewayne CAR SALESMAN.AUDIO VISUAL COORDINATOR Work Phone: [facility] 06-23-2024 14:16-0500 Body weight 73 kg Tamiko Dewayne CAR SALESMAN.AUDIO VISUAL COORDINATOR Work Phone: [facility] 06-23-2024 14:16-0500 Diastolic blood pressure 70 mm[Hg] Tamiko Dewayne CAR SALESMAN.AUDIO VISUAL COORDINATOR Work Phone: [facility] 06-23-2024 14:16-0500 Heart rate 102 /min Tamiko Dewayne CAR SALESMAN.AUDIO VISUAL COORDINATOR Work Phone: [facility] 06-23-2024 14:16-0500 Respiratory rate 16 /min Tamiko Dewayne CAR SALESMAN.AUDIO VISUAL COORDINATOR Work Phone: [facility] 06-23-2024 14:16-0500 SaO2% (BldA) [Mass fraction] 98 % Tamiko Dewayne CAR SALESMAN.AUDIO VISUAL COORDINATOR Work Phone: [facility] 06-23-2024 14:16-0500 Systolic blood pressure 144 mm[Hg] Tamiko Dewayne CAR SALESMAN.AUDIO VISUAL COORDINATOR Work Phone: [facility] 06-19-2024 22:00-0500 Diastolic blood pressure 46 mm[Hg] Dr. Bennett Weir MD Work Phone: [facility] 06-19-2024 22:00-0500 Heart rate 81 /min Dr. Bennett Weir MD Work Phone: [phone] [place] [address] 06-19-2024 22:00-0500 Respiratory rate 18 /min Dr. Bennett Weir MD Work Phone: [phone] [place] [address] 06-19-2024 22:00-0500 SaO2% (BldA) [Mass fraction] 97 % Dr. Bennett Weir MD Work Phone: [phone] [place] [address] 06-19-2024 22:00-0500 Systolic blood pressure 151 mm[Hg] Dr. Bennett Weir MD Work Phone: [phone] [place] [address] 06-19-2024 21:38-0500 Body temperature 97.8 [degF] Dr. Bennett Weir MD Work Phone: [phone] [place] [address] 06-19-2024 18:59-0500 Body mass index (BMI) [Ratio] 30.6 kg/m2 Dr. Bennett Weir MD Work Phone: [phone] [place] [address] 06-19-2024 18:59-0500 Body weight 78.[address] Bennett Weir MD Work Phone: [facility] 02-24-2024 16:44-0400 Body height 158.1 cm Tamiko Buchanan APRN.AUDIO VISUAL COORDINATOR Work Phone: [facility] 02-24-2024 16:44-0400 Body mass index (BMI) [Ratio] 29.16 kg/m2 Tamiko Buchanan APRN.AUDIO VISUAL COORDINATOR Work Phone: [facility] 02-24-2024 16:44-0400 Body temperature 98.1 [degF] Tamiko Buchanan APRN.AUDIO VISUAL COORDINATOR Work Phone: [facility] 02-24-2024 16:44-0400 Body weight 72.9 kg Tamiko Dewayne CAR SALESMAN.AUDIO VISUAL COORDINATOR Work Phone: [facility] 02-24-2024 16:44-0400 Diastolic blood pressure 72 mm[Hg] Tamiko Dewayne CAR SALESMAN.AUDIO VISUAL COORDINATOR Work Phone: [facility] 02-24-2024 16:44-0400 Heart rate 92 /min Tamiko Dewayne CAR SALESMAN.AUDIO VISUAL COORDINATOR Work Phone: [facility] 02-24-2024 16:44-0400 Respiratory rate 16 /min Tamiko Dewayne CAR SALESMAN.AUDIO VISUAL COORDINATOR Work Phone: [facility] 02-24-2024 16:44-0400 Systolic blood pressure 120 mm[Hg] Tamiko Dewayne CAR SALESMAN.AUDIO VISUAL COORDINATOR Work Phone: [facility] 11-24-2023 10:52-0400 Diastolic blood pressure 76 mm[Hg] Bennett Weir MD Work Phone: [facility] 11-24-2023 10:52-0400 Heart rate 86 /min Bennett Weir MD Work Phone: [facility] 11-24-2023 10:52-0400 Systolic blood pressure 126 mm[Hg] Bennett Weir MD Work Phone: [facility] 11-24-2023 10:46-0400 Body mass index (BMI) [Ratio] 28.72 kg/m2 Bennett Weir MD Work Phone: [facility] 11-24-2023 10:46-0400 Body temperature 98.4 [degF] Bennett Weir MD Work Phone: [facility] 11-24-2023 10:46-0400 Body weight 71.22 kg Bennett Weir MD Work Phone: [facility] 11-18-2023 10:55-0400 Diastolic blood pressure 73 mm[Hg] Silvino Mclaughlin MD Work Phone: [facility] 11-18-2023 10:55-0400 Heart rate 85 /min Silvino Mclaughlin MD Work Phone: [facility] 11-18-2023 10:55-0400 Respiratory rate 14 /min Silvino Mclaughlin MD Work Phone: [facility] 11-18-2023 10:55-0400 SaO2% (BldA) [Mass fraction] 98 % Silvino Mclaughlin MD Work Phone: [facility] 11-18-2023 10:55-0400 Systolic blood pressure 149 mm[Hg] Silvino Mclaughlin MD Work Phone: [facility] 11-18-2023 09:25-0400 Body temperature 97.5 [degF] Silvino Mclaughlin MD Work Phone: [facility] 10-31-2023 09:23-0400 Body mass index (BMI) [Ratio] 28.72 kg/m2 Bennett Weir MD Work Phone: [facility] 10-31-2023 09:23-0400 Body weight 71.22 kg Bennett Weir MD Work Phone: [facility] 10-31-2023 09:23-0400 Diastolic blood pressure 58 mm[Hg] Bennett Weir MD Work Phone: [facility] 10-31-2023 09:23-0400 Heart rate 84 /min Bennett Weir MD Work Phone: [facility] 10-31-2023 09:23-0400 Respiratory rate 14 /min Bennett Weir MD Work Phone: [facility] 10-31-2023 09:23-0400 SaO2% (BldA) [Mass fraction] 97 % Bennett Weir MD Work Phone: [facility] 10-31-2023 09:23-0400 Systolic blood pressure 132 mm[Hg] Bennett Weir MD Work Phone: [facility] 10-08-2023 15:09-0400 Body height 157.5 cm Silvino Mclaughlin MD Work Phone: [facility] 10-08-2023 15:09-0400 Body mass index (BMI) [Ratio] 29.52 kg/m2 Silvino Mclaughlin MD Work Phone: [facility] 10-08-2023 15:09-0400 Body temperature 97 [degF] Silvino Mclaughlin MD Work Phone: [facility] 10-08-2023 15:09-0400 Body weight 73.21 kg Silvino Mclaughlin MD Work Phone: [facility] 10-08-2023 15:09-0400 Diastolic blood pressure 50 mm[Hg] Silvino Mclaughlin MD Work Phone: [facility] 10-08-2023 15:09-0400 Heart rate 92 /min Silvino Mclaughlin MD Work Phone: [facility] 10-08-2023 15:09-0400 SaO2% (BldA) [Mass fraction] 95 % Silvino Mclaughlin MD Work Phone: [facility] 10-08-2023 15:09-0400 Systolic blood pressure 128 mm[Hg] Silvino Mclaughlin MD Work Phone: [facility] 09-02-2023 10:34-0400 Body temperature 97.7 [degF] Bennett Weir MD Work Phone: [facility] 09-02-2023 10:34-0400 Body weight 71.67 kg Bennett Weir MD Work Phone: [facility] 09-02-2023 10:34-0400 Diastolic blood pressure 72 mm[Hg] Bennett Weir MD Work Phone: [facility] 09-02-2023 10:34-0400 Heart rate 84 /min Bennett Weir MD Work Phone: [facility] 09-02-2023 10:34-0400 Respiratory rate 12 /min Bennett Weir MD Work Phone: [facility] 09-02-2023 10:34-0400 Systolic blood pressure 120 mm[Hg] Bennett Weir MD Work Phone: [facility] 08-14-2023 14:08-0400 Body temperature 97 [degF] [facility] 08-14-2023 14:08-0400 Diastolic blood pressure 81 mm[Hg] [facility] 08-14-2023 14:08-0400 Heart rate 81 /min [facility] 08-14-2023 14:08-0400 Respiratory rate 16 /min [facility] 08-14-2023 14:08-0400 SaO2% (BldA) [Mass fraction] 99 % [facility] 08-14-2023 14:08-0400 Systolic blood pressure 167 mm[Hg] [facility] 08-14-2023 12:51-0400 Body height 160.02 cm [facility] 08-14-2023 12:51-0400 Body mass index (BMI) [Ratio] 28.5 kg/m2 [facility] 08-14-2023 12:51-0400 Body weight 73.1 kg [facility] 07-22-2023 11:36-0500 Diastolic blood pressure 68 mm[Hg] Bennett Weir MD Work Phone: [facility] 07-22-2023 11:36-0500 Heart rate 87 /min Bennett Weir MD Work Phone: [facility] 07-22-2023 11:36-0500 Systolic blood pressure 116 mm[Hg] Bennett Weir MD Work Phone: [facility] 07-22-2023 11:30-0500 Body temperature 98.6 [degF] Bennett Weir MD Work Phone: [facility] 07-22-2023 11:30-0500 Body weight 71.17 kg Bennett Weir MD Work Phone: [facility] 07-20-2023 15:14-0500 Body temperature 98.1 [degF] [facility] 07-20-2023 15:14-0500 Diastolic blood pressure 56 mm[Hg] [facility] 07-20-2023 15:14-0500 Heart rate 77 /min [facility] 07-20-2023 15:14-0500 Respiratory rate 16 /min [facility] 07-20-2023 15:14-0500 SaO2% (BldA) [Mass fraction] 99 % [facility] 07-20-2023 15:14-0500 Systolic blood pressure 159 mm[Hg] [facility] 07-20-2023 13:02-0500 Body height 160.02 cm [facility] 07-20-2023 13:02-0500 Body mass index (BMI) [Ratio] 29.4 kg/m2 [facility] 07-20-2023 13:02-0500 Body weight 75.4 kg [facility] 04-24-2023 10:59-0500 Body height 157.5 cm Bennett Weir MD Work Phone: [facility] 04-24-2023 10:59-0500 Body temperature 98.8 [degF] Bennett Weir MD Work Phone: [facility] 04-24-2023 10:59-0500 Body weight 71.67 kg Bennett Weir MD Work Phone: [facility] 04-24-2023 10:59-0500 Diastolic blood pressure 60 mm[Hg] Bennett Weir MD Work Phone: [facility] 04-24-2023 10:59-0500 Heart rate 92 /min Bennett Weir MD Work Phone: [facility] 04-24-2023 10:59-0500 Respiratory rate 12 /min Bennett Weir MD Work Phone: [facility] 04-24-2023 10:59-0500 SaO2% (BldA) [Mass fraction] 97 % Bennett Weir MD Work Phone: [facility] 04-24-2023 10:59-0500 Systolic blood pressure 130 mm[Hg] Bennett Weir MD Work Phone: [facility] 03-31-2023 08:20-0500 Diastolic blood pressure 67 mm[Hg] Kristen Leon DO Work Phone: [facility] 03-31-2023 08:20-0500 Heart rate 85 /min Kirsten Leon DO Work Phone: [facility] 03-31-2023 08:20-0500 SaO2% (BldA) [Mass fraction] 99 % Kirsten Leon DO Work Phone: [facility] 03-31-2023 08:20-0500 Systolic blood pressure 114 mm[Hg] Kirsten Leon DO Work Phone: [facility] 01-20-2023 13:55-0400 Body temperature 98.91 [degF] Tamiko Older CAR SALESMAN.AUDIO VISUAL COORDINATOR Work Phone: [facility] 01-20-2023 13:55-0400 Body weight 73.03 kg Tamiko Older CAR SALESMAN.AUDIO VISUAL COORDINATOR Work Phone: [facility] 01-20-2023 13:55-0400 Diastolic blood pressure 76 mm[Hg] Tamiko Older CAR SALESMAN.AUDIO VISUAL COORDINATOR Work Phone: [facility] 01-20-2023 13:55-0400 Heart rate 96 /min Tamiko Older CAR SALESMAN.AUDIO VISUAL COORDINATOR Work Phone: [facility] 01-20-2023 13:55-0400 Respiratory rate 14 /min Tamiko Older CAR SALESMAN.AUDIO VISUAL COORDINATOR Work Phone: [facility] 01-20-2023 13:55-0400 SaO2% (BldA) [Mass fraction] 100 % Tamiko Older CAR SALESMAN.AUDIO VISUAL COORDINATOR Work Phone: [facility] 01-20-2023 13:55-0400 Systolic blood pressure 134 mm[Hg] Tamiko Older CAR SALESMAN.AUDIO VISUAL COORDINATOR Work Phone: [facility] 12-30-2022 18:51-0400 Body temperature 97.59 [degF] Shanice Crawley PA Work Phone: [facility] 12-30-2022 18:51-0400 Body weight 73.75 kg Krislyn Aberegg PA Work Phone: [facility] 12-30-2022 18:51-0400 Diastolic blood pressure 68 mm[Hg] Krislyn Aberegg PA Work Phone: [facility] 12-30-2022 18:51-0400 Heart rate 110 /min Krislyn Aberegg PA Work Phone: [facility] 12-30-2022 18:51-0400 Respiratory rate 18 /min Krislyn Aberegg PA Work Phone: [facility] 12-30-2022 18:51-0400 SaO2% (BldA) [Mass fraction] 97 % Krislyn Aberegg PA Work Phone: [facility] 12-30-2022 18:51-0400 Systolic blood pressure 132 mm[Hg] Krislyn Aberegg PA Work Phone: [facility] 11-22-2022 01:00-0400 Diastolic blood pressure 78 mm[Hg] [facility] 11-22-2022 01:00-0400 Heart rate 81 /min [facility] 11-22-2022 01:00-0400 Respiratory rate 16 /min [facility] 11-22-2022 01:00-0400 SaO2% (BldA) [Mass fraction] 98 % [facility] 11-22-2022 01:00-0400 Systolic blood pressure 154 mm[Hg] [facility] 11-21-2022 22:57-0400 Body height 159.99 cm [facility] 11-21-2022 22:57-0400 Body mass index (BMI) [Ratio] 29.5 kg/m2 [facility] 11-21-2022 22:57-0400 Body temperature 98.3 [degF] [facility] 11-21-2022 22:57-0400 Body weight 75.5 kg [facility] 11-21-2022 09:50-0400 Heart rate 88 /min Tamiko Quinn APRN.AUDIO VISUAL COORDINATOR Work Phone: [facility] 11-21-2022 09:33-0400 Body height 158 cm Tamiko Older CAR SALESMAN.AUDIO VISUAL COORDINATOR Work Phone: [facility] 11-21-2022 09:33-0400 Body weight 74.39 kg Tamiko Older CAR SALESMAN.AUDIO VISUAL COORDINATOR Work Phone: [facility] 11-21-2022 09:33-0400 Diastolic blood pressure 72 mm[Hg] Tamiko Older CAR SALESMAN.AUDIO VISUAL COORDINATOR Work Phone: [facility] 11-21-2022 09:33-0400 Respiratory rate 14 /min Tamiko Older CAR SALESMAN.AUDIO VISUAL COORDINATOR Work Phone: [facility] 11-21-2022 09:33-0400 Systolic blood pressure 125 mm[Hg] Tamiko Older CAR SALESMAN.AUDIO VISUAL COORDINATOR Work Phone: [facility] 08-04-2022 18:53-0400 Diastolic blood pressure 79 mm[Hg] [facility] 08-04-2022 18:53-0400 Heart rate 61 /min [facility] 08-04-2022 18:53-0400 Respiratory rate 15 /min [facility] 08-04-2022 18:53-0400 SaO2% (BldA) [Mass fraction] 96 % [facility] 08-04-2022 18:53-0400 Systolic blood pressure 133 mm[Hg] [facility] 08-04-2022 16:50-0400 Body mass index (BMI) [Ratio] 28.1 kg/m2 [facility] 08-04-2022 16:50-0400 Body temperature 97.4 [degF] [facility] 08-04-2022 16:50-0400 Body weight 72.12 kg [facility] 05-07-2022 10:07-0500 Diastolic blood pressure 73 mm[Hg] Bennett Weir MD Work Phone: [facility] 05-07-2022 10:07-0500 Heart rate 102 /min Bennett Weir MD Work Phone: [facility] 05-07-2022 10:07-0500 Systolic blood pressure 134 mm[Hg] Bennett Weir MD Work Phone: [facility] 05-07-2022 09:58-0500 Body temperature 97 [degF] Bennett Weir MD Work Phone: [facility] 05-07-2022 09:58-0500 Body weight 72.12 kg Bennett Weir MD Work Phone: [facility] 05-07-2022 09:58-0500 SaO2% (BldA) [Mass fraction] 97 % Bennett Weir MD Work Phone: [facility] 04-03-2022 13:48-0500 Body height 158.1 cm Kirsten Leon DO Work Phone: [facility] 04-03-2022 13:48-0500 Body weight 73.03 kg Kirsten Leon DO Work Phone: [facility] 04-03-2022 13:48-0500 Diastolic blood pressure 62 mm[Hg] Kirsten Leon DO Work Phone: [facility] 04-03-2022 13:48-0500 Heart rate 90 /min Kirsten Leon DO Work Phone: [facility] 04-03-2022 13:48-0500 SaO2% (BldA) [Mass fraction] 99 % Kirsten Leon DO Work Phone: [facility] 04-03-2022 13:48-0500 Systolic blood pressure 128 mm[Hg] Kirsten Leon DO Work Phone: [facility] 02-18-2022 12:59-0400 Body weight 73.48 kg Tamiko Older CAR SALESMAN.AUDIO VISUAL COORDINATOR Work Phone: [facility] 02-18-2022 12:59-0400 Diastolic blood pressure 62 mm[Hg] Tamiko Older CAR SALESMAN.AUDIO VISUAL COORDINATOR Work Phone: [facility] 02-18-2022 12:59-0400 Heart rate 99 /min Tamiko Older CAR SALESMAN.AUDIO VISUAL COORDINATOR Work Phone: [facility] 02-18-2022 12:59-0400 SaO2% (BldA) [Mass fraction] 99 % Tamiko Older CAR SALESMAN.AUDIO VISUAL COORDINATOR Work Phone: [facility] 02-18-2022 12:59-0400 Systolic blood pressure 130 mm[Hg] Tamiko Older CAR SALESMAN.AUDIO VISUAL COORDINATOR Work Phone: [facility] 01-20-2022 15:56-0400 Body temperature 97.81 [degF] Bennett Weir MD Work Phone: [facility] 01-20-2022 15:56-0400 Body weight 73.03 kg Bennett Weir MD Work Phone: [facility] 01-20-2022 15:56-0400 Diastolic blood pressure 76 mm[Hg] Bennett Weir MD Work Phone: [facility] 01-20-2022 15:56-0400 Heart rate 100 /min Bennett Weir MD Work Phone: [facility] 01-20-2022 15:56-0400 Respiratory rate 18 /min Bennett Weir MD Work Phone: [facility] 01-20-2022 15:56-0400 Systolic blood pressure 126 mm[Hg] Bennett Weir MD Work Phone: [facility] 01-09-2022 10:19-0400 Body temperature 98.2 [degF] Tamiko Older CAR SALESMAN.AUDIO VISUAL COORDINATOR Work Phone: [facility] 01-09-2022 10:19-0400 Body weight 72.12 kg Tamiko Older CAR SALESMAN.AUDIO VISUAL COORDINATOR Work Phone: [facility] 01-09-2022 10:19-0400 Diastolic blood pressure 72 mm[Hg] Tamiko Older CAR SALESMAN.AUDIO VISUAL COORDINATOR Work Phone: [facility] 01-09-2022 10:19-0400 Heart rate 95 /min Tamiko Older CAR SALESMAN.AUDIO VISUAL COORDINATOR Work Phone: [facility] 01-09-2022 10:19-0400 Respiratory rate 14 /min Tamiko Older CAR SALESMAN.AUDIO VISUAL COORDINATOR Work Phone: [facility] 01-09-2022 10:19-0400 SaO2% (BldA) [Mass fraction] 98 % Tamiko Older CAR SALESMAN.AUDIO VISUAL COORDINATOR Work Phone: [facility] 01-09-2022 10:19-0400 Systolic blood pressure 138 mm[Hg] Tamiko Older CAR SALESMAN.AUDIO VISUAL COORDINATOR Work Phone: [facility] 10-10-2021 11:11-0400 Diastolic blood pressure 67 mm[Hg] [facility] Work Phone: 10-10-2021 11:11-0400 Heart rate 76 /min [facility] Work Phone: 10-10-2021 11:11-0400 Respiratory rate 15 /min [facility] Work Phone: 10-10-2021 11:11-0400 SaO2% (BldA) [Mass fraction] 97 % [facility] Work Phone: 10-10-2021 11:11-0400 Systolic blood pressure 148 mm[Hg] [facility] Work Phone: 10-10-2021 08:51-0400 Body height 160.02 cm [facility] Work Phone: 10-10-2021 08:51-0400 Body mass index (BMI) [Ratio] 29.4 kg/m2 [facility] Work Phone: 10-10-2021 08:51-0400 Body temperature 98.4 [degF] [facility] Work Phone: 10-10-2021 08:51-0400 Body weight 75.4 kg [facility] Work Phone: 10-07-2021 06:13-0400 Diastolic blood pressure 66 mm[Hg] [facility] Work Phone: 10-07-2021 06:13-0400 Heart rate 85 /min [facility] Work Phone: 10-07-2021 06:13-0400 Respiratory rate 15 /min [facility] Work Phone: 10-07-2021 06:13-0400 SaO2% (BldA) [Mass fraction] 98 % [facility] Work Phone: 10-07-2021 06:13-0400 Systolic blood pressure 144 mm[Hg] [facility] Work Phone: 10-07-2021 02:14-0400 Body height 160.02 cm [facility] Work Phone: 10-07-2021 02:14-0400 Body mass index (BMI) [Ratio] 29.4 kg/m2 [facility] Work Phone: 10-07-2021 02:14-0400 Body temperature 97.9 [degF] [facility] Work Phone: 10-07-2021 02:14-0400 Body weight 75.3 kg [facility] Work Phone: 09-16-2021 14:27-0400 Body temperature 97.5 [degF] Bennett Weir MD Work Phone: [facility] 09-16-2021 14:27-0400 Body weight 71.94 kg Bennett Weir MD Work Phone: [facility] 09-16-2021 14:27-0400 Diastolic blood pressure 66 mm[Hg] Bennett Weir MD Work Phone: [facility] 09-16-2021 14:27-0400 Heart rate 108 /min Bennett Weir MD Work Phone: [facility] 09-16-2021 14:27-0400 Respiratory rate 18 /min Bennett Weir MD Work Phone: [facility] 09-16-2021 14:27-0400 Systolic blood pressure 132 mm[Hg] Bennett Weir MD Work Phone: [facility] 08-30-2021 09:30-0400 Diastolic blood pressure 70 mm[Hg] Bennett Weir MD Work Phone: [facility] 08-30-2021 09:30-0400 Heart rate 107 /min Bennett Weir MD Work Phone: [facility] 08-30-2021 09:30-0400 Systolic blood pressure 120 mm[Hg] Bennett Weir MD Work Phone: [facility] Encounters Encounter Date Encounter Type Care Provider Facility Start: 12-05-2024 End: 02-04-2025 Follow-up encounter Eliana Carrera APRN.AUDIO VISUAL COORDINATOR Work Phone: Neurology Start: 11-06-2024 End: 11-06-2024 Follow-up encounter Bennett Weir MD Work Phone: [facility] [place] Start: 10-31-2024 End: 10-31-2024 ambulatory BENNETT WEIR Facility:[facility] Start: 10-28-2024 End: 10-28-2024 Patient encounter procedure Eliana Carrera CAR SALESMAN.AUDIO VISUAL COORDINATOR Work Phone: Neurology Comment on above: Transient cerebral i schemia, unspecified type (Primary Dx); Vertigo; Visual disturbance; Personal history of transient ischemic attack (TIA), and cerebral infarction without residual deficits; Double vision Start: 10-28-2024 End: 10-28-2024 ambulatory ELIANA CARRERA Facility:[facility] Start: 10-26-2024 End: 10-26-[address] Bennett Weir MD Work Phone: [facility] Work Phone: Start: 10-26-2024 End: 10-26-[address] Bennett Weir MD -Cardiovascular Services Work Phone: Start: 10-26-2024 End: 10-26-2024 ambulatory Bennett Weir Facility:[facility] Start: 10-18-2024 End: 10-19-2024 Telephone encounter Bennett Weir MD Work Phone: Radiology Comment on above: Orders Start: 10-14-2024 End: 10-14-2024 ambulatory BENNETT WEIR Facility:[facility] Start: 10-04-2024 End: 10-04-2024 Office outpatient visit 25 minutes Tamiko Buchanan APRN.AUDIO VISUAL COORDINATOR Work Phone: [facility] [place] Comment on above: Vertigo (Primary Dx) ; Visual disturbance; Balance problem; Personal history of transient ischemic attack (TIA), and cerebral infarction without residual deficits Start: 10-04-2024 End: 10-04-2024 ambulatory TAMIKO BUCHANAN Facility:[facility] Start: 10-03-2024 End: 10-03-2024 Patient encounter procedure Dauqan Champion MD Work Phone: Orthopaedics Comment on above: Primary osteoarthrit is of both knees; Chronic pain of both knees; Synovial cyst of popliteal space ([place]), left knee Start: 10-03-2024 End: 10-03-2024 ambulatory DAQUAN CHAMPION Facility:[facility] Start: 09-29-2024 End: 09-29-2024 Emergency department patient visit Dr. Bennett Weir MD Work Phone: -Emergency Department Work Phone: Start: 09-14-2024 End: 09-14-2024 ambulatory Teetee Teixeira MA [facility] Start: 09-14-2024 End: 09-14-2024 Patient encounter procedure Teetee Teixeira MA [facility] Comment on above: Population Health Na vigation Outreach ([facility] Start: 09-05-2024 End: 09-05-2024 Patient encounter procedure Kirsten Leon DO Work Phone: Vascular Surgery Comment on above: PVD (peripheral vasc ular disease) (Primary Dx) Start: 09-05-2024 End: 09-05-2024 ambulatory KIRSTEN LEON Facility:[facility] Start: 08-31-2024 End: 10-31-2024 Follow-up encounter Tamiko Buchanan APRN.AUDIO VISUAL COORDINATOR Work Phone: [facility] [place] Start: 08-29-2024 End: 08-29-2024 ambulatory KIRSTEN LEON Facility:[facility] Start: 08-29-2024 End: 08-29-2024 Patient encounter procedure Kirsten Rosado Leon DO Work Phone: Vascular Surgery Comment on above: PVD (peripheral vasc ular disease) (Primary Dx) Start: 08-24-2024 End: 08-24-2024 ambulatory TAMIKO SEGUNDOERGER Facility:[facility] Start: 08-24-2024 End: 08-24-2024 Patient encounter procedure Tamiko Julian Dewayne CAR SALESMAN.AUDIO VISUAL COORDINATOR Work Phone: [facility] [place] Comment on above: Chronic pain of both knees (Primary Dx); Primary osteoarthritis of both knees Start: 08-24-2024 End: 08-24-2024 ambulatory TAMIKO Julian DEWAYNE Facility:[facility] Start: 08-19-2024 End: 08-19-2024 Emergency department patient visit Dr. Bennett Weir MD Work Phone: -Emergency Department Work Phone: Start: 06-23-2024 End: 06-23-2024 Patient encounter procedure Tamiko Julian Dewayne CAR SALESMAN.AUDIO VISUAL COORDINATOR Work Phone: [facility] [place] Comment on above: Constipation, unspec ified constipation type (Primary Dx); Diverticulitis Start: 06-23-2024 End: 06-23-2024 ambulatory TAMIKO BUCHANAN Facility:[facility] Start: 06-19-2024 End: 06-19-2024 Emergency department patient visit Dr. Scar Hernandez DO -Emergency Department Work Phone: Start: 05-03-2024 End: 05-03-2024 ambulatory Katia Fall RN Work Phone: [facility] Comment on above: community monitoring outreach (Monthly cdm call) Start: 05-02-2024 End: 05-03-2024 Refill Bennett Weir MD Work Phone: [facility] [place] Comment on above: Refill Request Start: 04-08-2024 End: 04-11-2024 ambulatory Katia Fall RN Work Phone: [facility] Comment on above: community monitoring outreach (Monthly cdm call) Start: 03-31-2024 End: 05-10-2024 Telephone encounter Kirstenjigna Manle DO Work Phone: Vascular Surgery Comment on above: Results Start: 03-29-2024 End: 03-29-2024 ambulatory KIRSTEN LEON Facility:[facility] Start: 03-15-2024 End: 03-16-2024 ambulatory Katia Fall RN Work Phone: [facility] Comment on above: community monitoring outreach (Monthly cdm call) Start: 02-24-2024 End: 02-24-2024 ambulatory TAMIKO BUCHANAN Facility:[facility] Start: 02-24-2024 End: 02-24-2024 Patient encounter procedure Tamiko Buchanan CAR SALESMAN.AUDIO VISUAL COORDINATOR Work Phone: [facility] [place] Comment on above: Medicare annual well ness visit, subsequent (Primary Dx); Mixed hyperlipidemia; Screening for depression Start: 02-22-2024 End: 02-22-2024 ambulatory BENNETT WEIR Facility:[facility] Start: 02-11-2024 End: 02-12-2024 ambulatory Katia Fall RN Work Phone: [facility] Comment on above: community monitoring outreach (Monthly cdm call) Start: 01-14-2024 End: 01-18-2024 ambulatory Stacy Mcduffie RN Work Phone: [facility] Comment on above: community monitoring outreach (CDM outreach telephonic/) Start: 01-04-2024 ambulatory Stacy mir RN Work Phone: [facility] Comment on above: community monitoring outreach (CDM outreach telephonic/) Start: 12-04-2023 ambulatory Stacy mir RN Work Phone: [facility] Comment on above: community monitoring outreach (CDM outreach telephonic/) Start: 11-30-2023 End: 11-30-2023 Patient encounter procedure Erma Koroma MICHELLE Work Phone: General Surgery Comment on above: Dysphagia, unspecifi ed type (Primary Dx) Start: 11-24-2023 End: 11-24-2023 Patient encounter procedure Bennett Weir MD Work Phone: [facility] [place] Comment on above: Ophthalmic migraine (Primary Dx); Mixed hyperlipidemia; Essential hypertension; Amaurosis fugax Start: 11-18-2023 End: 11-18-2023 Subsequent hospital visit by physician Silvino Mclaughlin MD Work Phone: Ambulatory Surgery Comment on above: Dysphagia, unspecifi ed type [R13.10] Start: 11-06-2023 ambulatory Stacyquiana Lee l RN Work Phone: [facility] Comment on above: community monitoring outreach (CDM outreach telephonic/) Start: 10-31-2023 End: 10-31-2023 Patient encounter procedure Bennett Weir MD Work Phone: [facility] [place] Comment on above: TIA (transient ische brody attack) (Primary Dx); Mixed hyperlipidemia; Essential hypertension; Dysphagia, unspecified type; Carotid atherosclerosis, bilateral; Transient vision disturbance, bilateral Start: 10-23-2023 ambulatory Stacy Rosa l RN Work Phone: [facility] Comment on above: community monitoring outreach (CDM outreach telephonic/) Start: 10-09-2023 ambulatory Stacy Diegonel l RN Work Phone: [facility] Comment on above: community monitoring outreach (CDM outreach telephonic/) Start: 10-08-2023 End: 10-08-2023 Patient encounter procedure Silvino Mclaughlin MD Work Phone: General Surgery Comment on above: Dysphagia, unspecifi ed type Start: 10-08-2023 ambulatory Stacy Pennel l RN Work Phone: [facility] Comment on above: community monitoring outreach (CDM outreach telephonic/) Start: 09-18-2023 ambulatory Stacy mir RN Work Phone: [employer] Comment on above: community monitoring outreach (CDM outreach telephonic/) Start: 09-17-2023 ambulatory Stacy mir RN Work Phone: [employer] Comment on above: community monitoring outreach (CDM outreach telephonic/) Start: 09-02-2023 End: 09-02-2023 Patient encounter procedure Bennett Weir MD Work Phone: Internal [facility] [place] Comment on above: Dysphagia, unspecifi ed type (Primary Dx); Aortic valve stenosis, mild; Mixed hyperlipidemia; Encounter for screening mammogram for malignant neoplasm of breast Start: 08-24-2023 ambulatory Stacy mir RN Work Phone: [employer] Comment on above: community monitoring outreach (CDM outreach telephonic/) Start: 08-14-2023 ambulatory Liz Hamlin RN NURS E [employer] Comment on above: Difficulty Swallowin g Start: 08-14-2023 End: 08-14-2023 [facility] Start: 07-24-2023 ambulatory Stacy mir RN Work Phone: [employer] Comment on above: community monitoring outreach (CDM outreach telephonic/) Start: 07-22-2023 End: 07-22-2023 Subsequent hospital visit by physician [facility] Work Phone: Radiology Comment on above: Acute pain of right knee [M25.561] Start: 07-22-2023 End: 07-22-2023 Patient encounter procedure Bennett Weir MD Work Phone: [facility] [place] Comment on above: Dizziness (Primary D x); Near syncope; Impacted cerumen of both ears; Mixed hyperlipidemia; Aortic valve sclerosis; Acute pain of right knee Start: 07-20-2023 End: 07-20-2023 [facility] Start: 07-10-2023 ambulatory Stacy mir RN Work Phone: [employer] Comment on above: community monitoring outreach (CDM outreach telephonic/) Start: 06-29-2023 Orders Only Bennett bragg MD Work Phone: [facility] [place] Comment on above: Mixed hyperlipidemia (Primary Dx) Start: 05-01-2023 ambulatory Gay null RN Work Phone: [facility] Start: 05-01-2023 Follow-up encounter Gay Diaz RN Work Phone: [employer] Comment on above: Community Monitoring Outreach (CDM Follow Up ) Start: 04-24-2023 End: 04-24-2023 Patient encounter procedure Bennett Weir MD Work Phone: Internal Medicine [place] Comment on above: Acute pain of right knee (Primary Dx); Essential hypertension; Multiple thyroid nodules; Mixed hyperlipidemia; Aortic valve sclerosis Start: 03-31-2023 End: 03-31-2023 Patient encounter procedure Kirsten Ashlee Manle DO Work Phone: Vascular Surgery Comment on above: PVD (peripheral vasc ular disease) (HCC) (Primary Dx) Start: 03-16-2023 ambulatory Gay null RN Work Phone: [employer] [facility] Start: 03-16-2023 Follow-up encounter Gay Diaz RN Work Phone: [employer] Comment on above: Community Monitoring Outreach (CDM Follow Up) Start: 01-20-2023 ambulatory Jeniffer Padilla [employer] Comment on above: Population Health Na vigation Outreach (H@H) Patient Update Population Health Na vigation Outreach (H@H [facility] CALL IN/) Start: 01-20-2023 End: 01-20-2023 Patient encounter procedure Tamiko Quinn APRN.AUDIO VISUAL COORDINATOR Work Phone: Internal [facility] [place] Comment on above: Diarrhea, unspecifie d type (Primary Dx) Start: 01-05-2023 ambulatory Gay null RN Work Phone: [facility] Start: 01-05-2023 Follow-up encounter Gay Diaz RN Work Phone: [employer] Comment on above: Community Monitoring Outreach (CDM Follow Up) Start: 12-30-2022 End: 12-30-2022 Patient encounter procedure Shanice LUQUE Work Phone: [facility] Comment on above: Skin tear of left fo rearm without complication, initial encounter (Primary Dx) Start: 12-23-2022 End: 12-23-2022 Patient encounter procedure Akira Whalenjuma Work Phone: Podiatry Comment on above: Neuroma (Primary Dx) ; Left foot pain Start: 12-23-2022 End: 12-23-2022 Subsequent hospital visit by physician [facility] Work Phone: Radiology Comment on above: Pain in left foot [M 79.672] Start: 12-15-2022 Orders Only Akira kenyon Work Phone: Podiatry Comment on above: Pain in left foot (P rimary Dx) Start: 11-21-2022 End: 11-22-2022 Emergency department patient visit [facility] Work Phone: Start: 11-21-2022 End: 11-21-2022 Patient encounter procedure Tamiko Older CAR SALESMAN.AUDIO VISUAL COORDINATOR Work Phone: Internal [facility] [place] Comment on above: Medicare annual well ness visit, subsequent (Primary Dx); Left foot pain Start: 11-17-2022 ambulatory Gay null RN Work Phone: [facility] Start: 11-17-2022 Follow-up encounter Gay Diaz RN Work Phone: [employer] Comment on above: Community Monitoring Outreach (CDM Follow Up) Start: 09-19-2022 Documentation procedure Mammog edith Coordinator [facility] Start: 09-19-2022 Letter encounter Mammography Coordinator [facility] Department Start: 09-18-2022 End: 09-18-2022 Subsequent hospital visit by physician Screen Mammo [facility] Mammogram Comment on above: Encounter for screen ing mammogram for malignant neoplasm of breast [Z12.31] Start: 09-16-2022 ambulatory Fadumo Liu RN [facility] Start: 09-16-2022 Patient encounter procedure Fadumo Liu RN NURSE [employer] Comment on above: Appointment Start: 08-28-2022 ambulatory Johnna Gomez RN Work Phone: [facility] Start: 08-28-2022 Follow-up encounter Johnna courtney RN Work Phone: [employer] Comment on above: community monitoring outreach (CDM follow up) Start: 08-04-2022 End: 08-04-2022 Emergency department patient visit [facility] Work Phone: Start: 07-17-2022 ambulatory Johnna Gomez RN Work Phone: [employer] [facility] Start: 07-17-2022 Follow-up encounter Johnna courtney RN Work Phone: [employer] Comment on above: community monitoring outreach (CDM follow up) Start: 06-24-2022 ambulatory [facility] [employer] Comment on above: Self Monitoring Ques tionnaire Reminder Start: 06-24-2022 E-mail encounter fro m caregiver [facility] Provider [facility] Start: 06-04-2022 ambulatory [facility] [employer] Comment on above: [employer] Self Monitor ing Questionnaire Reminder Start: 06-04-2022 [facility]-mail encounter [facility] Start: 06-04-2022 End: 06-04-2022 Subsequent hospital visit by physician Us [facility] 2 Work Phone: Radiology Comment on above: Abnormal thyroid ult rasound [R93.89] Start: 05-20-2022 ambulatory Bennett bragg MD Work Phone: Internal [facility] [place] Comment on above: Question for thyroid evaluation scheduling Start: 05-20-2022 Telephone encounter Della Maharaj MD Work Phone: General Surgery Comment on above: Appointment Start: 05-15-2022 ambulatory Brina cabrera RN Work Phone: [employer] Comment on above: Community Monitoring Outreach (Enrollment H@H ) Start: 05-07-2022 End: 05-07-2022 Patient encounter procedure Bennett Weir MD Work Phone: Internal Medicine [place] Comment on above: Flu-like symptoms (P rimary Dx); Acute upper respiratory infection, unspecified ; Polymyalgia rheumatica (HCC) Start: 04-03-2022 End: 04-03-2022 Patient encounter procedure Kirsten Leon DO Work Phone: Vascular Surgery Comment on above: PVD (peripheral vasc ular disease) (HCC) (Primary Dx) Start: 03-26-2022 Telephone encounter Kirsten Leon DO Work Phone: Vascular Surgery Comment on above: Orders Start: 02-18-2022 End: 02-18-2022 Patient encounter procedure Tamiko Quinn APRN.AUDIO VISUAL COORDINATOR Work Phone: [facility] [place] Comment on above: Palpitations (Primar y Dx) Start: 01-20-2022 End: 01-20-2022 Patient encounter procedure Bennett Weir MD Work Phone: [facility] [place] Comment on above: Synovitis of wrist ( Primary Dx); Polymyalgia rheumatica (HCC); Essential hypertension Start: 01-13-2022 ambulatory Tamiko Older [employer] .AUDIO VISUAL COORDINATOR Work Phone: Internal Medicine [place] Comment on above: lab and x-ray result s Start: 01-13-2022 E-mail encounter fro m caregiver Tamiko Older CAR SALESMAN.AUDIO VISUAL COORDINATOR Work Phone: [facility] [place] Start: 01-09-2022 End: 01-09-2022 Subsequent hospital visit by physician Alex [facility] [place] Work Phone: Radiology Comment on above: Rib pain on left rayna e [R07.81] Start: 01-09-2022 End: 01-09-2022 Patient encounter procedure Tamiko Older CAR SALESMAN.AUDIO VISUAL COORDINATOR Work Phone: Internal Medicine [place] Comment on above: Left sided abdominal pain (Primary Dx); Rib pain on left side; Generalized abdominal tenderness without rebound tenderness; Osteopenia, unspecified location Start: 11-27-2021 End: 11-27-2021 Subsequent hospital visit by physician Bone Density [facility] Work Phone: Radiology Comment on above: intermediate card tender (current) use of systemic steroids [Z79.52] Start: 10-10-2021 End: 10-10-2021 Emergency department patient visit [facility] Start: 10-07-2021 End: 10-07-2021 Emergency department patient visit [facility] Start: 09-16-2021 End: 09-16-2021 Patient encounter procedure Bennett Weir MD Work Phone: Internal Medicine [place] Comment on above: Polymyalgia rheumati ca (HCC) (Primary Dx); Essential hypertension Start: 09-04-2021 Telephone encounter Bennett styles MD Work Phone: [facility] [place] Comment on above: swollen tongue Start: 09-03-2021 ambulatory Bennett bragg MD Work Phone: [facility] [place] Comment on above: Revised message to Ashlee Weir Start: 08-30-2021 End: 08-30-2021 Patient encounter procedure Bennett Weir MD Work Phone: Internal [facility] [place] Comment on above: Myalgia (Primary Dx) ; Essential hypertension; Anxiety about health Start: 08-29-2021 ambulatory Bennett bragg MD Work Phone: Internal [facility] [place] Comment on above: blood work question Start: 08-28-2021 Telephone encounter [facility] [place] Comment on above: labs Start: 08-14-2021 Documentation procedure Mammog edith Coordinator [facility] Start: 08-14-2021 Letter encounter Mammography Coordinator [facility] Procedures Date Procedure Procedure Detail Performing Clinician Start: 09-29-2024 Urnls dip stick/tablet reagent auto microscopy Dr. Bennett Weir MD Work Phone: Start: 09-29-2024 CT of head without contrast Dr. Bennett Weir MD Work Phone: Start: 09-29-2024 X-ray of chest, PA and lateral views Dr. Bennett Weir MD Work Phone: Start: 09-29-[address] Adolfo Weir MD Work Phone: Start: 08-19-2024 X-ray of knee, four or more views Dr. Tammy Weir MD Work Phone: Start: 06-19-2024 Urnls dip stick/tablet reagent auto microscopy Dr. Bennett Weir MD Work Phone: Start: 06-19-2024 CT of abdomen and pelvis without contrast Dr. Bennett Weir MD Work Phone: Start: 06-19-[address] Adolfo Weir MD Work Phone: Start: 06-19-2024 Measurement of renal function Dr. Bennett Weir MD Work Phone: Comment on above: GFR Calc Start: 02-24-2024 Adult depression screening assessment Tamiko Buchanan APRN.CNP Work Phone: Start: 11-18-2023 Esophagogastroduodenoscopy transoral diagnostic Silvino Mclaughlin MD Work Phone: Start: 07-22-2023 Radiologic exam knee complete 4/more views Bennett Weir MD Work Phone: Start: 07-20-2023 Plain chest X-ray Start: 12-23-2022 Radex foot complete minimum 3 views Akira Govea Work Phone: Start: 11-21-2022 CT of head without contrast Start: 09-18-2022 Screening mammography bi 2-view breast inc cad Bennett Weir MD Work Phone: Start: 06-04-2022 Us soft tissue head & neck real time imge docm Della Farooq MD Work Phone: Start: 01-09-2022 Radex ribs uni w/posteroant ch minimum 3 views Tamiko Buchanan APRN.CNP Work Phone: Start: 11-27-2021 Dxa bone density study 1/> sites axial skel Bennett Weir MD Work Phone: Start: 10-10-2021 Plain chest X-ray Start: 10-07-2021 CT of abdomen and pelvis without contrast Plan of Treatment Date Care Activity Detail Author Start: 12-30-2032 Urine microalbumin profile [facility] Start: 02-21-2027 Diabetes Screening Diabetes Screening [facility] Start: 06-24-2026 Diabetes Screening Diabetes Screening [facility] Start: 01-20-2026 DIABETES SCREEN DIABETES SCREEN [facility] Start: 01-20-2026 Diabetes Screening Diabetes Screening [facility] Start: 07-01-2025 DIABETES SCREEN DIABETES SCREEN [facility] Start: 03-29-2025 End: 03-29-2025 Patient encounter procedure 03/29/2025 8:40 AM EST Office Visit [facility] [place] [address] [place], [place] [id number] Bennett Weir MD [address] [place], [place] [id number] medicare exam [facility] [place] Comment on above: medicare exam Start: 03-13-2025 End: 03-13-2025 Patient encounter procedure 03/13/2025 10:45 AM EDT Office Visit Vascular Surgery [address] [address] Kirsten Leon, DO [address] [place] [address] 6 MONTH FOLLOW UP , no testing per dr. leon Vascular Surgery Comment on above: 6 MONTH FOLLOW UP , no testing per dr. january lennon Start: 02-23-2025 Depression Screening Depression Screening [facility] Start: 02-23-2025 Medicare Annual Wellness Visit Medicare Annual Wellness Visit [facility] Start: 02-23-2025 RSV Vaccine (1 - 1-dose 75+ series) RSV Vaccine (1 - 1-dose 75+ series) [facility] Comment on above: Postponed from 2013 (Declined at t his time) Start: 02-23-2025 Shingrix Vaccine (1 of 2) Shingrix Vaccine (1 of 2) [facility] Comment on above: Postponed from 1988 (Declined at t his time) Start: 01-09-2025 DIABETES SCREEN DIABETES SCREEN [facility] Start: 11-04-2024 End: 11-04-2024 Patient encounter procedure 11/04/2024 12:00 PM EDT Appointment Radiology [address] [place] [address] transient cerebral ischemia, unspecified type [G45.9] Radiology Comment on above: transient cerebral ischemia, unspecified type [G45.9] Start: 10-31-2024 End: 10-31-2024 Patient encounter procedure 10/31/2024 8:00 AM EDT Office Visit Cardiology [address] [place] [address] Aortic valve stenosis, mild [I35.0] Cardiology Comment on above: Aortic valve stenosis, mild [I35.0] Start: 10-28-2024 End: 10-28-2024 Patient encounter procedure 10/28/2024 1:30 PM EDT Office Visit Neurology [address] [address] Eliana Carrera, CAR SALESMAN.AUDIO VISUAL COORDINATOR [address] [address] R42 (ICD-10-CM) - [facility] Neurology Comment on above: R42 (ICD-10-CM) - [place] Start: 10-24-2024 End: 10-24-2024 ambulatory 10/24/2024 11:00 AM EDT OT/PT/Speech Visit [facility] [address] [place] [address] Stacy Montana, PT Vertigo [R42] [facility] Comment on above: Vertigo [R42] Start: 10-14-2024 End: 10-14-2024 Patient encounter procedure 10/14/2024 11:20 AM EDT Office Visit [facility] [place] [address] [facility] [place] [address] Bennett Weir MD [address] [place] [address] Follow up/Wellness [facility] [place] Comment on above: Follow up/Wellness Start: 10-04-2024 End: 10-04-2024 Patient encounter procedure 10/04/2024 11:20 AM EDT Office Visit [facility] [place] [address] [facility] [place] [address] Tamiko Buchanan, CAR SALESMAN.AUDIO VISUAL COORDINATOR [address] [place] [address] [facility] Follow Up 09/29/2024. Dizziness, stomach pain and Diarrhea [facility] [place] Comment on above: [facility] Follow Up 09/29/2024. Dizziness, st omach pain and Diarrhea Start: 10-03-2024 End: 10-03-2024 Patient encounter procedure 10/03/2024 1:15 PM EDT Office Visit [facility]ed[facility] [address] [facility] [address] Daquan Champion MD [address] [place] [address] Chronic pain of both knees [M25.561, M25.562, G89.29]; Primary osteoarthritis of both knees [M17.0] Orthopaedics Comment on above: Chronic pain of both knees [M25.561, M25 .562, G89.29]; Primary osteoarthritis of both knees [M17.0] Start: 09-29-2024 [facility] Start: 09-05-2024 End: 09-05-2024 Patient encounter procedure Vascular Surgery Comment on above: [facility] TESTING FOLLOW UP TO TESTING Start: 08-30-2024 DIABETES SCREEN DIABETES SCREEN [facility] Start: 08-24-2024 End: 11-23-2024 Lipid 1996 panel - Serum or Plasma LIPID PANEL BASIC Lab Routine Mixed hyperlipidemia Expected: 08/24/2024 (Approximate), Expires: 11/23/2024 [facility] Work Phone: Comment on above: Expected: 08/24/2024 (Approximate), Expi res: 11/23/2024 Start: 08-24-2024 End: 08-24-2024 Patient encounter procedure 08/24/2024 11:20 AM EDT Office Visit [facility] [place] [address] [place], [place] [id number] Tamiko Buchanan, CAR SALESMAN.AUDIO VISUAL COORDINATOR [address] [place], [place] [id number] 6 month follow up [facility] [place] Comment on above: 6 month follow up Start: 08-19-2024 [facility] Start: 06-19-2024 [facility] Start: 05-25-2024 Advance Directive Discussion Advance Directive Discussion [facility] Start: 03-29-2024 End: 03-29-2024 Patient encounter procedure Vasculary Surgery Comment on above: PVD (peripheral vascular disease) (HCC) [I73.9] 1 year follow up aft er testing Start: 03-23-2024 End: 03-23-2024 Patient encounter procedure 03/23/2024 11:30 AM EDT Appointment Mammogram [address] [place], [place] [address] Dx: Encounter for screening mammogram for malignant neoplasm of breast [Z12.31 (ICD-10-CM)] Mammogram Comment on above: Dx: Encounter for screening mammogram fo r malignant neoplasm of breast [Z12.31 (ICD-10-CM)] Start: 02-24-2024 End: 02-24-2024 Patient encounter procedure 02/24/2024 5:00 PM EDT Office Visit [facility] [place] [address] [place], [place] [id number] Tamiko Buchanan, CAR SALESMAN.AUDIO VISUAL COORDINATOR [address] [place], [place] [address] Medicare Wellness [facility] [place] Comment on above: Medicare Wellness Start: 02-24-2024 End: 05-25-2024 Basic metabolic 2000 panel - Serum or Plasma BASIC METABOLIC PANEL Lab Routine Mixed hyperlipidemia Expected: 02/24/2024, Expires: 05/25/2024 [facility] Comment on above: Expected: 02/24/2024, Expires: Start: 02-24-2024 End: 05-25-2024 CBC panel - Blood by Automated count COMPLETE BLOOD COUNT Lab Routine Essential hypertension Expected: 02/24/2024, Expires: 05/25/2024 [facility] Comment on above: Expected: 02/24/2024, Expires: Start: 02-24-2024 End: 05-25-2024 Lipid 1996 panel - Serum or Plasma LIPID PANEL BASIC Lab Routine Mixed hyperlipidemia Expected: 02/24/2024, Expires: 05/25/2024 [facility] Comment on above: Expected: 02/24/2024, Expires: Start: 12-25-2023 End: 12-25-2023 Patient encounter procedure 12/25/2023 8:00 AM EDT Appointment Radiology [address] [place] [address] Amaurosis fugax [G45.3] Radiology Comment on above: Amaurosis fugax [G45.3] Start: 11-30-2023 End: 11-30-2023 Patient encounter procedure 11/30/2023 10:00 AM EDT Office Visit General Surgery [address] [place] [address] Erma Koroma APRN.AUDIO VISUAL COORDINATOR [address] [place] [address] 11-17 EGD follow up General Surgery Comment on above: 11-17 EGD follow up Start: 11-24-2023 End: 11-24-2023 Patient encounter procedure 11/24/2023 10:40 AM EDT Office Visit [facility] [place] [address] [place] [address] Bennett Weir MD [address] [place] [address] 7 month follow up-labs [facility] [place] Comment on above: 7 month follow up-labs Start: 11-22-2023 SHINGRIX VACCINE (1 of 2) SHINGRIX VACCINE (1 of 2) [facility] Comment on above: Postponed from 1988 (Declined at t his time) Start: 11-22-2023 Urine microalbumin profile DTAP,TDAP,TD (2 - Td or Tdap) [facility] Comment on above: Postponed from 09/15/2022 (Declined at t his time) Start: 11-18-2023 End: 11-18-2023 Patient encounter procedure Ambulatory Surgery Comment on above: please call [phone] Start: 10-29-2023 End: 10-29-2023 Patient encounter procedure 10/29/2023 2:30 PM EDT Appointment Ambulatory Surgery [address] [place], [place] [id number] Silvino Mclaughlin MD [address] [place], [place] [id number] please call [phone] Ambulatory Surgery Comment on above: please call [phone] Start: 10-29-2023 End: 10-29-2023 Patient encounter procedure 10/29/2023 1:15 PM EDT Appointment Ambulatory Surgery [address] [place], [place] [id number] Silvino Mclaughlin MD [address] [place], [place] [address] please call [phone] Ambulatory Surgery Comment on above: please call [phone] Start: 10-08-2023 End: 10-08-2023 Patient encounter procedure 10/08/2023 3:00 PM EDT Office Visit General Surgery [address] [place], [place] [id number] Silvino Mclaughlin MD [address] [place] [address] Dysphagia, unspecified type [R13.10] General Surgery Comment on above: Dysphagia, unspecified type [R13.10] Start: 09-21-2023 End: 09-21-2023 Patient encounter procedure 09/21/2023 10:10 AM EDT Appointment Mammogram [address] [place] [address] Encounter for screening mammogram for malignant neoplasm of breast [Z12.31] Mammogram Comment on above: Encounter for screening mammogram for ma lignant neoplasm of breast [Z12.31] Start: 09-16-2023 End: 12-16-2023 Lipid 1996 panel - Serum or Plasma LIPID PANEL BASIC Lab Routine Mixed hyperlipidemia Expected: 09/16/2023, Expires: 12/16/2023 [facility] Work Phone: Comment on above: Expected: 09/16/2023, Expires: Start: 08-14-2023 End: 08-14-2023 [facility] Start: 07-20-2023 [facility] Start: 05-25-2023 Advance Directive Discussion Advance Directive Discussion [facility] Start: 05-25-2023 End: 08-24-2023 Basic metabolic 2000 panel - Serum or Plasma BASIC METABOLIC PNL Lab Routine Essential hypertension Expected: 05/25/2023, Expires: 08/24/2023 [facility] Work Phone: Comment on above: Expected: 05/25/2023, Expires: Start: 05-25-2023 Behavioral Health Screening Behavioral Health Screening [facility] Start: 05-25-2023 Depression Assessment Depression Assessment [facility] Start: 05-25-2023 End: 08-24-2023 Lipid 1996 panel - Serum or Plasma LIPID PANEL BASIC Lab Routine Mixed hyperlipidemia Expected: 05/25/2023, Expires: 08/24/2023 [facility] Work Phone: Comment on above: Expected: 05/25/2023, Expires: Start: 01-23-2023 Influenza vaccination [facility] Start: 01-20-2023 End: 03-22-2023 Clostridioides difficile toxin genes [Presence] in Stool by NOLAN with probe detection C. DIFFICILE PCR Lab Routine Diarrhea, unspecified type Expected: 01/20/2023 (Approximate), Expires: 03/22/2023 [facility] Work Phone: Comment on above: Expected: 01/20/2023 (Approximate), Expi res: 03/22/2023 Start: 01-20-2023 End: 03-22-2023 ENTERIC BACTERIAL PANEL BY PCR ENTERIC BACTERIAL PANEL BY PCR Lab Routine Diarrhea, unspecified type Expected: 01/20/2023 (Approximate), Expires: 03/22/2023 [facility] Work Phone: Comment on above: Expected: 01/20/2023 (Approximate), Expi res: 03/22/2023 Start: 01-20-2023 End: 03-22-2023 Giardia lamblia+Cryptosporidium sp Ag [Presence] in Stool by Immunoassay CRYPTOSPORIDIUM AND GIARDIA ANTIGENS BY EIA Microbiology Routine Diarrhea, unspecified type Expected: 01/20/2023 (Approximate), Expires: 03/22/2023 [facility] Work Phone: Comment on above: Expected: 01/20/2023 (Approximate), Expi res: 03/22/2023 Start: 01-20-2023 End: 03-22-2023 Hemoglobin.gastrointestin al.lower [Presence] in Stool by Immunoassay FECAL OCCULT BLOOD TEST Lab Routine Diarrhea, unspecified type Expected: 01/20/2023 (Approximate), Expires: 03/22/2023 [facility] Work Phone: Comment on above: Expected: 01/20/2023 (Approximate), Expi res: 03/22/2023 Start: 11-21-2022 Influenza vaccination INFLUENZA (#1) [facility] Comment on above: Postponed from 01/23/2022 (Declined at t his time) Start: 11-06-2022 DIABETES SCREEN DIABETES SCREEN [facility] Start: 09-15-2022 Urine microalbumin profile DTAP,TDAP,TD (2 - Td or Tdap) [facility] Start: 05-25-2022 ADVANCE DIRECTIVE DISCUSSION ADVANCE DIRECTIVE DISCUSSION [facility] Start: 05-25-2022 DEPRESSION ASSESSMENT DEPRESSION ASSESSMENT [facility] Start: 01-23-2022 Influenza vaccination [facility] Start: 01-09-2022 End: 03-11-2022 25-hydroxyvitamin D3 [Mass/volume] in Serum or Plasma [facility] Work Phone: Comment on above: Expected: 01/09/2022, Expires: 2 Start: 01-09-2022 End: 03-11-2022 Amylase [Enzymatic activity/volume] in Serum or Plasma [facility] Work Phone: Comment on above: Expected: 01/09/2022, Expires: 2 Start: 01-09-2022 End: 03-11-2022 Bacteria identified in Urine by Culture [facility] Work Phone: Comment on above: Expected: 01/09/2022, Expires: 2 Start: 01-09-2022 End: 03-11-2022 C reactive protein [Mass/volume] in Serum or Plasma [facility] Work Phone: Comment on above: Expected: 01/09/2022, Expires: 2 Start: 01-09-2022 End: 03-11-2022 Erythrocyte sedimentation rate [facility] Work Phone: Comment on above: Expected: 01/09/2022, Expires: 2 Start: 01-09-2022 End: 03-11-2022 Lipase [Enzymatic activity/volume] in Serum or Plasma [facility] Work Phone: Comment on above: Expected: 01/09/2022, Expires: 2 Start: 01-09-2022 End: 03-11-2022 Urinalysis complete panel - Urine [facility] Work Phone: Comment on above: Expected: 01/09/2022, Expires: 2 Start: 11-21-2021 Influenza vaccination INFLUENZA (#1) [facility] Comment on above: Postponed from 01/23/2021 (Declined at t his time) Start: 11-06-2021 End: 01-06-2022 C reactive protein [Mass/volume] in Serum or Plasma C-REACTIVE PROTEIN (CRP) Lab Routine Polymyalgia rheumatica (HCC) Expected: 11/06/2021, Expires: 01/06/2022 [facility] Work Phone: Comment on above: Expected: 11/06/2021, Expires: 2 Start: 11-06-2021 End: 01-06-2022 Erythrocyte sedimentation rate SED RATE WESTERGREN Lab Routine Polymyalgia rheumatica (HCC) Expected: 11/06/2021, Expires: 01/06/2022 [facility] Work Phone: Comment on above: Expected: 11/06/2021, Expires: 2 Start: 08-30-2021 End: 10-30-2021 Aldolase [Enzymatic activity/volume] in Serum or Plasma [facility] Work Phone: Comment on above: Expected: 08/30/2021, Expires: 2 Start: 08-30-2021 End: 10-30-2021 C reactive protein [Mass/volume] in Serum or Plasma [facility] Work Phone: Comment on above: Expected: 08/30/2021, Expires: 2 Start: 08-30-2021 End: 10-30-2021 CBC panel - Blood by Automated count [facility] Work Phone: Comment on above: Expected: 08/30/2021, Expires: 2 Start: 08-30-2021 End: 10-30-2021 CK CREATINE KINASE [facility] Work Phone: Comment on above: Expected: 08/30/2021, Expires: 2 Start: 08-30-2021 End: 10-30-2021 Comprehensive metabolic 2000 panel - Serum or Plasma [facility] Work Phone: Comment on above: Expected: 08/30/2021, Expires: 2 Start: 08-30-2021 End: 10-30-2021 Erythrocyte sedimentation rate [facility] Work Phone: Comment on above: Expected: 08/30/2021, Expires: 2 Start: 08-30-2021 End: 10-30-2021 Thyrotropin [Units/volume] in Serum or Plasma [facility] Work Phone: Comment on above: Expected: 08/30/2021, Expires: 2 Start: 05-25-2021 ADVANCE DIRECTIVE DISCUSSION ADVANCE DIRECTIVE DISCUSSION [facility] Start: 05-25-2021 DEPRESSION ASSESSMENT DEPRESSION ASSESSMENT [facility] Start: 2013 RSV Vaccine (1 - 1-dose 75+ series) RSV Vaccine (1 - 1-dose 75+ series) [facility] Start: 1998 RSV Vaccine (1 - 1-dose 60+ series) RSV Vaccine (1 - 1-dose 60+ series) [facility] Start: 1988 SHINGRIX VACCINE (1 of 2) SHINGRIX VACCINE (1 of 2) [facility] Start: 1956 Depression Screening Depression Screening [facility] Start: 1943 COVID-19 VACCINE (1) COVID-19 VACCINE (1) [facility] End: 04-15-2025 DBT Breast - bilateral screening FLORI SCREENING W ROBERT Radiology Routine Encounter for screening mammogram for malignant neoplasm of breast 1 Occurrences starting 03/16/2024 until 04/15/2025 [facility] Work Phone: Comment on above: 1 Occurrences starting 03/16/2024 until 04/15/2025 Dxa bone density nagi dy 1/> sites axial skel DXA-AXIAL SKELETON Radiology Routine alf (current) use of systemic steroids 11/27/2021 1:22 PM EDT [facility] Work Phone: End: 07-22-2024 Echocardiography ECHO Cardiology Routine Dizziness Near syncope 1 Occurrences starting 07/22/2023 until 07/22/2024 [facility] Work Phone: Comment on above: 1 Occurrences starting 07/22/2023 until 07/22/2024 End: 10-07-2024 EGD DIAGNOSTIC EGD DIAGNOSTIC Endoscopy Routine Dysphagia, unspecified type 1 Occurrences starting 10/08/2023 until 10/07/2024 [facility] Work Phone: Comment on above: 1 Occurrences starting 10/08/2023 until 10/07/2024 Influenza virus A an d B RNA and SARS-CoV-2 (COVID-19) N gene panel - Respiratory specimen by NOLAN with probe detection COVID WITH FLUA+B, ROUTINE Microbiology Routine Flu-like symptoms Acute upper respiratory infection, unspecified Ordered: 05/07/2022 [facility] Work Phone: Comment on above: Ordered: 05/07/2022 End: 10-01-2024 MG Breast Screening FLORI SCREENING Radiology Routine Encounter for screening mammogram for malignant neoplasm of breast 1 Occurrences starting 09/02/2023 until 10/01/2024 [facility] Work Phone: Comment on above: 1 Occurrences starting 09/02/2023 until 10/01/2024 End: 11-27-2025 MR Brain WO contrast MRI BRAIN WO IVCON Radiology Routine Transient cerebral ischemia, unspecified type 1 Occurrences starting 10/28/2024 until 11/27/2025 [facility] Work Phone: Comment on above: 1 Occurrences starting 10/28/2024 until 11/27/2025 End: 11-27-2025 MRA Head vessels WO contrast MRA BRAIN WO IVCON Radiology Routine Transient cerebral ischemia, unspecified type 1 Occurrences starting 10/28/2024 until 11/27/2025 [facility] Comment on above: 1 Occurrences starting 10/28/2024 until 11/27/2025 End: 12-23-2024 MRA Neck vessels WO contrast MRA CAROTID WO IVCON Radiology Routine Amaurosis fugax 1 Occurrences starting 11/24/2023 until 12/23/2024 [facility] Work Phone: Comment on above: 1 Occurrences starting 11/24/2023 until 12/23/2024 End: 11-27-2025 MRA Neck vessels WO contrast MRA CAROTID WO IVCON Radiology Routine Transient cerebral ischemia, unspecified type 1 Occurrences starting 10/28/2024 until 11/27/2025 [facility] Comment on above: 1 Occurrences starting 10/28/2024 until 11/27/2025 OUTSIDE VENDOR CARDI AC OUTPATIENT EXTENDED RHYTHM RECORDING (WITHOUT TELEMETRY) OUTSIDE VENDOR CARDIAC OUTPATIENT EXTENDED RHYTHM RECORDING (WITHOUT TELEMETRY) Holter Routine Palpitations Ordered: 02/18/2022 [facility] Work Phone: Comment on above: Ordered: 02/18/2022 OUTSIDE VENDOR CARDI AC OUTPATIENT EXTENDED RHYTHM RECORDING (WITHOUT TELEMETRY) OUTSIDE VENDOR CARDIAC OUTPATIENT EXTENDED RHYTHM RECORDING (WITHOUT TELEMETRY) Holter Routine Transient cerebral ischemia, unspecified type Ordered: 10/28/2024 [facility] Comment on above: Ordered: 10/28/[address] [facility] Work Phone: Patient referral [facility] Work Phone: End: 03-31-2024 PVR ANK/MINAYA/TOE UMESH VAS LAB PVR ANK/MINAYA/TOE UMESH VAS LAB Vascular Lab Routine PVD (peripheral vascular disease) ([facility]) 1 Occurrences starting 03/31/2023 until 03/31/2024 [facility] Work Phone: Comment on above: 1 Occurrences starting 03/31/2023 until 03/31/2024 End: 03-26-2023 PVR LEG UMESH VAS LAB PVR LEG UMESH VAS LAB Vascular Lab Routine PVD (peripheral vascular disease) ([facility]) 1 Occurrences starting 03/27/2022 until 03/26/2023 [facility] Work Phone: Comment on above: 1 Occurrences starting 03/27/2022 until 03/26/2023 End: 04-03-2023 PVR LEG UMESH VAS LAB PVR LEG UMESH VAS LAB Vascular Lab Routine PVD (peripheral vascular disease) ([facility]) 1 Occurrences starting 04/03/2022 until 04/03/2023 [facility] Work Phone: Comment on above: 1 Occurrences starting 04/03/2022 until 04/03/2023 Removal impacted cer umen irrigation/lvg unilat AMBULATORY EAR LAVAGE/IRRIGATION Procedures Routine Impacted cerumen of both ears Ordered: 07/22/2023 [facility] Work Phone: Comment on above: Ordered: 07/22/2023 SURGICAL PATHOLOGY [facility] Work Phone: Comment on above: Release Upon Ordering for 1 Occurrences starting 11/18/2023, 1 completed End: 08-29-2025 US Lower extremity artery US LEG ARTERIAL PERIPH UNL VAS LAB Vascular Lab Routine PVD (peripheral vascular disease) 1 Occurrences starting 08/29/2024 until 08/29/2025 [facility] Work Phone: Comment on above: 1 Occurrences starting 08/29/2024 until 08/29/2025 End: 08-29-2025 US.doppler Extremity arteries - bilateral for physiologic artery study PVR ANK PRESS UMESH VAS LAB Vascular Lab Routine PVD (peripheral vascular disease) 1 Occurrences starting 08/29/2024 until 08/29/2025 [facility] Comment on above: 1 Occurrences starting 08/29/2024 until 08/29/2025 End: 01-14-2024 XR FOOT GENERAL 3V AP/LAT/OBL LEFT XR FOOT GENERAL 3V AP/LAT/OBL LEFT Radiology Routine Pain in left foot 1 Occurrences starting 12/15/2022 until 01/14/2024 [facility] Work Phone: Comment on above: 1 Occurrences starting 12/15/2022 until 01/14/2024 End: 08-20-2024 XR Knee - right 4 Views XR KNEE GENERAL 4V AP BOTH/PA BOTH/LAT/MERC RIGHT Radiology Routine Acute pain of right knee 1 Occurrences starting 07/22/2023 until 08/20/2024 [facility] Work Phone: Comment on above: 1 Occurrences starting 07/22/2023 until 08/20/2024 XR Knee - right 4 Views XR KNEE GENERAL 4V AP BOTH/PA BOTH/LAT/MERC RIGHT Radiology Routine Acute pain of right knee 07/22/2023 12:45 PM EST [facility] Work Phone: [facility] c [facility] c [facility] c [facility] Immunizations Immunization Date Immunization Notes Care Provider Fa cility 12-30-2022 TD(adult) unspecifie d formulation Shanice LUQUE Work Phone: [facility] Work Phone: 12-30-2022 tetanus and diphther ia toxoids, adsorbed, preservative free, for adult use (5 Lf of tetanus toxoid and 2 Lf of diphtheria toxoid) Shanice LUQUE Work Phone: [facility] 06-11-2017 influenza virus vaccine, unspecified formulation Gay Diaz RN Work Phone: [facility] 03-24-2016 pneumococcal conjuga te vaccine, 13 valent Mammography Coordinator [facility] 09-15-2012 tetanus toxoid, redu antonella diphtheria toxoid, and acellular pertussis vaccine, adsorbed Mammography Coordinator [facility] Work Phone: 03-25-2006 pneumococcal polysaccharide vaccine, 23 valent Mammography Coordinator [facility] 05-25-2000 tetanus and diphther ia toxoids, not adsorbed, for adult use Mammography Coordinator [facility] Work Phone: Payers Date Payer Category Payer Self-pay [id number] 2013 Private Health Insurance [facility] AARP SUPPLEMENT [id number] 2013-Present [phone] [address] [place] [address] Indemnity [id number] 2013 Private Health Insurance [id number] 2008 Unknown [id number] 2003 Medicare MEDICARE MEDICAR E A AND B [id number] 2003-Present [phone] [place] [address] Medicare [id number] 2003 Medicare [id number] 2003 Medicare [id number] Unknown [id number] Unknown [id number] Unknown [id number] Unknown [id number] Social History Date Type Detail Facility Start: 01-16-2011 End: 09-29-2024 Tobacco smoking status NHIS Never smoked tobacco [facility] Start: 08-06-2021 End: 12-05-2024 Alcohol intake Current non-drinker of alcohol (finding) [facility] Start: 1940 Sex Assigned At Not on file [facility] Start: 08-03-2021 End: 02-18-2022 Exposure to SARS-CoV-2 (event) Not sure [facility] Start: 10-07-2021 End: 08-14-2023 Tobacco smoking status MSIS Unknown if ever smoked [facility] Start: 07-18-[address] [facility] Start: 07-18-[address] [facility] Start: 07-18-2020 Non-smoker [facility] Start: 1940 Sex Assigned At Female [facility] Start: 01-16-2011 Tobacco use and exposure Smokeless tobacco non-user [facility] Start: 11-21-2022 End: 06-12-2023 History of Social function [facility] Work Phone: Start: 11-21-2022 End: 06-12-2023 Tobacco use panel [facility] Work Phone: Start: 04-25-2012 Adult Depression Screening Assessment 0 [facility] Work Phone: Start: 05-02-2020 Gender identity Identifies as female gender (finding) [facility] Start: 05-02-2020 Sexual orientation Heterosexual (dany burt) [facility] (I/We) worried wheth er (my/our) food would run out before (I/we) got money to buy more. Never true [facility] Work Phone: In the past 12 month s, was there a time when you were not able to pay the mortgage or rent on time? No [facility] Work Phone: How often to you hav e a drink containing alcohol? Never [facility] Start: 08-19-2024 Sex Female (finding) [facility] Goals Date Patient Goal Desired Activity /State Personal health goal Personal health goal Comment on above: Formatting of this n ote might be different from the original. Patient has the following general goals: Two PCP visits annually Patient Stated goal: Keep active. Patient will meet these goals by: ongoing Personal health goal Comment on above: Formatting of this n ote might be different from the original. Patient has the following general goals: Two PCP visits annually Patient Stated goal: Keep active, stay independent, keep op with appointments. Patient will meet these goals by 05/24/2024 (describe interventions done by PCC) Personal health goal Comment on above: Formatting of this n ote might be different from the original. This patient has the following High Blood Pressure/Hypertension Health Maintenance goals: Two PCP Visits annually This patient has the following education goals: Medication compliance education, Checking your Blood Pressure at Home, High Blood Pressure: Talking to Your Health Care Provider, High Blood Pressure - When to Seek Emergency Care, and Your Sodium-Controlled Diet Patient will meet these goals by 05/24/2024 Personal health goal Comment on above: Formatting of this n ote might be different from the original. Patient has the following general goals: Two PCP visits annually Patient Stated goal: Keep active. Patient will meet these goals by: ongoing Functional Status Date Assessment Result Facility 03-04-2017 Are you deaf, or do you have serious difficulty hearing No 03/04/2017 10:29 AM Bennett Junior MD No [facility] 03-04-2017 Are you blind, or do you have serious difficulty seeing, even when wearing glasses No 03/04/2017 10:29 AM Bennett Junior MD No [facility] 03-04-2017 Do you have serious difficulty walking or climbing stairs No 03/04/2017 10:29 AM Bennett Junior MD No [facility] 03-04-2017 Do you have difficul ty dressing or bathing No 03/04/2017 10:29 AM Bennett Junior MD No [facility] 03-04-2017 Because of a physica l, mental, or emotional condition, do you have difficulty doing errands alone such as visiting a physician's office or shopping No 03/04/2017 10:29 AM Bennett Junior MD [facility] Mental Status Date Assessment Result Facility 09-29-2024 Cognitive function Awake;Alert;A ppropriate;Fol lows Commands [facility] Work Phone: 07-20-2023 Cognitive function Level Of Cons ciousness Awake;Alert;Appropriate;Fol lows Commands [facility] Work Phone: 11-21-2022 Cognitive function Voice/Name [facility] Work Phone: 10-10-2021 Cognitive function Level Of Cons ciousness Awake;Alert;Appropriate;Fol lows Commands [facility] Work Phone: 03-04-2017 Because of a physica l, mental, or emotional condition, do you have serious difficulty concentrating, remembering, or making decisions No 03/04/2017 10:29 AM Bennett Junior MD No [facility] Clinical Notes 01-16-2014 to 10-28-2024 Patient InstructionsDaEliana no APRN.TOMASA - 10/28/2024 1:30 PM EDTTelephone Encounter - Mikaela Felton MA - 10/19/2024 2:09 PM Tamiko Gordon APRN.CNP - 10/04/2024 11:42 AM EDT Note Date & Type Note Facility 10-28-2024 Instructions Eliana Carrera APRN.CNP - 10/28/2024 2:25 PM EDT - Continue taking your baby aspirin at least every other day to help prevent another TIA. - Follow up with your primary care provider to manage and monitor your cholesterol levels. - Check your blood pressure at home regularly. - Schedule and complete these tests as soon as possible: - MRI of the brain without contrast and MRA of the brain and neck to evaluate your blood vessels - Echocardiogram on Thursday at the [facility] (as ordered by Dr. King) - Updated tangled yarn worker (Holter) to check for any abnormal heart rhythms - If you have any new stroke-like symptoms--such as sudden one-sided weakness or numbness, trouble speaking, severe spinning dizziness, or sudden vision loss or double vision--call 911 and go to the emergency room immediately. - Contact our keno writer / runner to help you schedule your MRI/MRA. documented in this encounter [facility] 10-28-2024 History of Presen t illness Narrative Images from the original note were not included. [facility] [place] New Patient Evaluation CHIEF COMPLAINT: Vision changes, dizziness Dinah Nelson is a 84 year old accompanied by her daughter. Consult was requested by Tamiko Buchanan CNP for an opinion regarding above CC. My final impression and recommendations will be communicated back to the requesting physician by way of the shared medical record or fax. October 28, 2024 HPI: Ms. Nelson presents today secondary to issues of multiple concerns. States that eyesight went black and is seeing double vision. Side of faces on L were gone; both eyes. Associated with vertigo; severe dizziness. This happened on September 29. Called EMS and was taken to the ED. States they couldn't find anything. Was at [facility]. Had US carotid at [facility]. No dizziness since. She has had intermittent double vision; side by side. Unsure if resolved with one eye closed. Lasted for a brief flash. Very rare but had occurred a couple times. Happened when moving head. Started a few weeks prior. Saw ophthalmology and was told all looked good. Did have one episode when full vision was lost; completely black. Resolved about one minute. Also had hospitalization in 10/2023; daughter provides records where she was taken to [facility] and with possible migraine. MRI brain done in 10/2023. The next day was when she had vision loss in each eye. No slurred or garbled speech. No focal weakness; some generalized weakness. No loss of sensation. States she was shaking d/t fear. + dizziness/lightheadedness. Has been chronic for many years. Most of the time is lightheadedness. Has gone to the ED No seizure hx. No stroke. States she was told this was possibly a TIA. Taking ASA 81mg three times weekly. Has been on and off for years but was not taking when event occurred. Was taking zetia; no longer taking this d/t SE. Cannot take statins. Not taking any other medications. Did have a choking episode where she was taken to the ED. States sometimes she has times where she feels like she is going to pass out; BP has been shivam high. High BP only during episodes. Was on BP medication for period of time. Reacted to BP medication. LDL 149. Occasional frontal headache but rare. KIRBY with weather changes. Possible ophthalmic migraines. No other past neurological hx. No family neuro hx. Past Diagnostic Results (Brain MRI and CT and carotid US provided by pt's daughter via cell phone): - (10/2023) Brain MRI: Small white matter hyperintensities consistent with mild chronic ischemic changes. - (10/2023) Carotid Ultrasound: Mild bilateral stenosis (<50%). - (10/2023) Brain CT: Unremarkable. - (08/2023) LDL: 149 mg/dL. - (2020) LDL: 187 mg/dL. Alcohol: Denies Tobacco: Denies Drug: Denies PAST MEDICAL HISTORY Diagnosis Date Aortic valve sclerosis 03/24/2016 Aortic valve stenosis, mild 08/15/2023 Atherosclerosis of arteries 03/24/2016 Benign meningioma of brain (HCC) 11/08/2019 Benign neoplasm of colon Benign neoplasm of stomach Cataract Both eyes COVID-19 05/07/2022 Diverticulitis Diverticulosis 04/15/2011 Dysplasia of cervix 1988 Esophageal reflux Lipoma of skin and subcutaneous tissue of neck 11/08/2019 right posterior neck Mixed hyperlipidemia 03/24/2016 Polymyalgia rheumatica (HCC) 09/16/2021 PVD (peripheral vascular disease) with claudication 07/27/2020 Raynaud's phenomenon without gangrene 11/27/2020 Thyroid nodule 11/08/2019 Unspecified hypothyroidism PAST SURGICAL HISTORY Procedure Laterality Date APPENDECTOMY BIOPSY CERVIX SINGLE/MULT/EXCISION OF LESION SPX CATARACT SURGERY, COMPLEX 05/25/2010 CHOLECYSTECTOMY Cholecystectomy COLONOSCOPY FLX DX W/COLLJ SPEC WHEN PFRMD 06/03/2005 Colonoscopy with bx COLONOSCOPY FLX DX W/COLLJ SPEC WHEN PFRMD 06/03/2005 Colonoscopy with polypectomy COLONOSCOPY FLX DX W/COLLJ SPEC WHEN PFRMD 08/13/2009 Colonoscopy-repeat in 3 years (-2012) COLSC FLX W/RMVL OF TUMOR POLYP LESION SNARE TQ 11/07/2014 hyperplastic polyp - 5 year follow up - h/o polyps ESOPHAGOGASTRODUODENOSCOPY TRANSORAL DIAGNOSTIC 05/30/2005 EGD ESOPHAGOGASTRODUODENOSCOPY TRANSORAL DIAGNOSTIC 10/2023 LAPAROSCOPIC HEMICOLECTOMY Right 05/25/2005 LEEP PROCEDURE (CUT AND COVER LINE WORKER DEPT)_*[place] 05/25/1988 Current Outpatient Medications on File Prior to Visit Medication Sig aspirin, enteric coated (ASPIRIN, ENTERIC COATED) 81 mg EC tablet Take 1 tablet by mouth every other day. No current facility-administered medications on file prior to visit. Social History Tobacco Use Smoking status: Never Smokeless tobacco: Never Vaping Use Vaping status: Never Used Substance Use Topics Alcohol use: No Drug use: No ALLERGIES Allergen Reactions Lovastatin Myalgia Severe myalgia, gi upset, Cgkxzja-Zzo-Olf Red* Myalgia Crestor [Rosuvastat* Other: See Comments [...] gen) without rash Penicillins Shortness of Breath Zetia [Ezetimibe] GI Upset Review of Systems: Cardiopulmonary: denies chest pain, palpitations Respiratory: denies shortness of breath GI: denies recent diarrhea, constipation : denies incontinence Sleep: denies issues with sleeping (difficulty staying asleep) Musculoskeletal: denies weakness Back/spine: denies low back or + cervical pains (neck/shoulders- worse on L) Neuro: denies tremors, loss of feeling, dizziness, seizure, blackout, paresthesia, facial paresthesia, facial weakness, difficulty in speech, slurring of words, dysarthria, dysphagia, memory loss, headache unless otherwise noted in HPI. Physical Exam: 10/28/24 1535 BP: 135/75 Pulse: 91 SpO2: 96% Patient is alert and in no distress. Dress is appropriate. Mood is appropriate Breathing appears regular and unstressed Neurologic examination: Cognitively intact. No deficits. No formal MOCA performed. CN: Pupils equal and reactive to light, extraocular movements intact with no nystagmus, face is symmetric with no facial droop, facial sensation intact bilaterally to light touch. V1-3, hearing intact bilaterally, symmetric evaluation of the soft palate, tongue is midline with no deviation, shoulder shrug is symmetric. Motor Examination: Right Upper Extremity: (of 5) Left Upper Extremity: (of 5) Shoulder Abduction: Deltoid (Ax/C5) 5 Shoulder Abduction 5 Elbow Flexion: Biceps (MC/R and C5/6) 5 Elbow Flexion 5 Elbow Extension: Triceps (R/C7) 5 Elbow Extension 5 Wrist Flexion (M/U and C6/7) 5 Wrist Flexion 5 Wrist Extension (R/C6) 5 Wrist Extension 5 Finger Abduction (U/T1) 5 Finger Abduction 5 Seam Steamer 5 Seam Steamer 5 Right Lower Extremity: (of 5) Left Lower Extremity: (of 5) Hip Flexion: Iliopsoas (F and L1/2) 5 Hip Flexion 5 Knee Extension: Quadriceps (F and L3/4) 5 Knee Extension 5 Knee Flexion: Hamstrings (S/S1) 5 Knee Flexion 5 Dorsiflexion: Tibialis Anterior (DP and L4/5) 5 Dorsiflexion 5 Plantarflexion: Gastrocnemius/Soleus (T and S1/2) 5 Plantarflexion 5 Reflexes: Right Extremities Left Extremities: Triceps (C7-8R) 2 Triceps 2 Biceps (C5-6MC) 2 Biceps 2 Brachioradialis (C5-6R) 2 Brachioradialis 2 Patellar (L3-4F) 2 Patellar 2 Achilles (S1-2S) 2 Achilles 2 Ankle Clonus: negative bilaterally Madrigal's: negative bilaterally Sensory Intact to light touch upper and lower extremities bilaterally Temperature: intact in all extremities Normal toe and finger vibratory sensation Coordination: No dysmetria on finger to nose. No tremors noted. No drift seen. Gait normal in stance and pattern. Tandem with mild imbalance. Negative Romberg. Labs/studies: CT Brain 09/29/24: FINDINGS: Cerebrum: No intraparenchymal hemorrhage. No abnormal areas of encephalomalacia.No mass effect or midline shift. Casillas-white matter differentiation is normal. Ventricles and cisterns: Appropriate size for patient's age. Extra-axial fluid: Unremarkable. Posterior fossa: Unremarkable cerebellum. No abnormalities involving the brainstem. Paranasal sinuses: Normal. Vasculature: Unremarkable. Mastoid air cells: unremarkable. Calvarium: Mild hyperostosis frontalis interna. Soft tissues: Unremarkable. . CT/Brain/Head without Contrast IMPRESSION: NO ACUTE FINDINGS. MRI Brain 07/18/20: MRA Brain 07/18/20: MRA Neck 07/18/20: Latest Ref Rng 02/22/2024 08/24/2024 WBC 3.70 - 11.00 k/uL 9.48 RBC 3.90 - 5.20 m/uL 4.05 Hemoglobin 11.5 - 15.5 g/dL 14.7 Hematocrit 36.0 - 46.0 % 40.7 MCV 80.0 - 100.0 fL 100.5 (H) MCH 26.0 - 34.0 pg 36.3 (H) MCHC 30.5 - 36.0 g/dL 36.1 (H) RDW-CV 11.5 - 15.0 % 16.3 (H) Platelet Count 150 - 400 k/uL 239 MPV 9.0 - 12.7 fL 9.8 Absolute nRBC <0.01 k/uL <0.01 Glucose 74 - 99 mg/dL 102 (H) BUN 7 - 21 mg/dL 11 Creatinine 0.58 - 0.96 mg/dL 0.69 Sodium 136 - 144 mmol/L 139 Potassium 3.7 - 5.1 mmol/L 4.3 Chloride 98 - 107 mmol/L 103 CO2 22 - 30 mmol/L 27 Anion Gap 8 - 15 mmol/L 9 Calcium 8.5 - 10.2 mg/dL 9.7 eGFR >=60 mL/min/1.73m 85 Cholesterol, Total <200 mg/dL 231 (H) Triglyceride <150 mg/dL 164 (H) HDL Cholesterol >39 mg/dL 49 Non HDL Cholesterol <130 mg/dL 182 (H) Fasting Time hrs 12 VLDL Cholesterol <30 mg/dL 33 (H) TC:HDL Ratio <5.10 4.71 LDL Cholesterol, Calculated <100 mg/dL 149 (H) LDL:HDL Ratio <2.54 3.04 (H) Legend: (H) High Assessment/Plan: 1. Visual disturbance (H53.9) Double vision (H53.2) Vertigo (R42) Comment: Patient presenting today for follow-up after hospitalization on 09/29/2024 at which time she experienced an episode of vision loss and vertigo. Vision loss was localized to L hemisphere of both eyes with symptoms resolving spontaneously. Prior to this event she does report brief intermittent diplopia occurring for only seconds. This began a few weeks prior to onset of vision loss and she did undergo ophthalmology evaluation which was unremarkable. During hospitalization ([facility]) CT brain was completed and unremarkable. She also underwent carotid US with bilateral stenosis less than 50% and has upcoming echocardiogram scheduled through [facility]. Hospital notes are not available for review. Of note, she did have an episode roughly 1 year ago at which time she lost complete vision bilaterally lasting roughly 1 minute and was hospitalized. At that time MRI brain was completed and unremarkable and she was diagnosed with ophthalmic migraine. She is currently taking ASA 3 times weekly due to GI intolerance and is unable to take statin (currently taking Zetia). She reports only rare headaches and BP generally WNL with exception of during events at which time is elevated. Exam today in office is nonfocal. Symptoms at this time are concerning for TIA and will proceed with plan below. - Ordered MRI and MRA of the brain and neck to evaluate for stroke/stenosis or occlusion (patient with contrast allergy and will defer CTA). - Discussed potential need for small dose anxiolytic during MRI if claustrophobic; requires transportation to and from the test. - Ordered updated tangled yarn worker to screen for atrial fibrillation. - Scheduled echocardiogram on Thursday to evaluate cardiac function. - Advised continuation of aspirin therapy every other day to prevent stroke. - Educated on the importance of seeking immediate medical attention (calling 911) for any new stroke-like symptoms. - Continue follow-up with PCP for cholesterol and blood pressure management. Follow-up after testing is complete or sooner should new or changing symptoms occur. Office Visit on 10/28/24 MRI BRAIN WO IVCON MRA BRAIN WO IVCON MRA CAROTID WO IVCON CONSULT TO NEUROLOGY OUTSIDE VENDOR CARDIAC OUTPATIENT EXTENDED RHYTHM RECORDING (WITHOUT TELEMETRY) Eliana Carrera APRN.CNP I spent a total of 65 minutes on the date of the service which included preparing to see the patient, [id number] patient care, completing clinical documentation, obtaining and/or reviewing separately obtained history, performing a medically appropriate examination, counseling and educating the patient/family/caregiver, and ordering medications, tests, or procedures. Portions of this note were created with electronic dictation and errors in spelling, syntax, and meaning may have occurred. documented in this encounter [facility] 10-28-2024 Note HNO ID: [id number] Author: ELIANA CARRERA APRN.CNP Service: ? Author Type: Nurse Practitioner Type: Progress Notes Filed: 10/28/2024 15:44 Note Text: [facility] [place] New Patient Evaluation CHIEF COMPLAINT: Vision changes, dizziness Dinah Nelson is a 84 year old accompanied by her daughter. Consult was requested by Tamiko Buchanan CNP for an opinion regarding above CC. My final impression and recommendations will be communicated back to the requesting physician by way of the shared medical record or fax. October 28, 2024 HPI: Ms. Nelson presents today secondary to issues of multiple concerns. States that eyesight went black and is seeing double vision. Side of faces on L were gone; both eyes. Associated with vertigo; severe dizziness. This happened on September 29. Called EMS and was taken to the ED. States they couldn't find anything. Was at [facility]. Had US carotid at [facility]. No dizziness since. She has had intermittent double vision; side by side. Unsure if resolved with one eye closed. Lasted for a brief flash. Very rare but had occurred a couple times. Happened when moving head. Started a few weeks prior. Saw ophthalmology and was told all looked good. Did have one episode when full vision was lost; completely black. Resolved about one minute. Also had hospitalization in 10/2023; daughter provides records where she was taken to [facility] and with possible migraine. MRI brain done in 10/2023. The next day was when she had vision loss in each eye. No slurred or garbled speech. No focal weakness; some generalized weakness. No loss of sensation. States she was shaking d/t fear. + dizziness/lightheadedness. Has been chronic for many years. Most of the time is lightheadedness. Has gone to the ED No seizure hx. No stroke. States she was told this was possibly a TIA. Taking ASA 81mg three times weekly. Has been on and off for years but was not taking when event occurred. Was taking zetia; no longer taking this d/t SE. Cannot take statins. Not taking any other medications. Did have a choking episode where she was taken to the ED. States sometimes she has times where she feels like she is going to pass out; BP has been shivam high. High BP only during episodes. Was on BP medication for period of time. Reacted to BP medication. LDL 149. Occasional frontal headache but rare. KIRBY with weather changes. Possible ophthalmic migraines. No other past neurological hx. No family neuro hx. Past Diagnostic Results (Brain MRI and CT and carotid US provided by pt's daughter via cell phone): - (10/2023) Brain MRI: Small white matter hyperintensities consistent with mild chronic ischemic changes. - (10/2023) Carotid Ultrasound: Mild bilateral stenosis (<50%). - (10/2023) Brain CT: Unremarkable. - (08/2023) LDL: 149 mg/dL. - (2020) LDL: 187 mg/dL. Alcohol: Denies Tobacco: Denies Drug: Denies PAST MEDICAL HISTORY Diagnosis Date Aortic valve sclerosis 03/24/2016 Aortic valve stenosis, mild 08/15/2023 Atherosclerosis of arteries 03/24/2016 Benign meningioma of brain (HCC) 11/08/2019 Benign neoplasm of colon Benign neoplasm of stomach Cataract Both eyes COVID-19 05/07/2022 Diverticulitis Diverticulosis 04/15/2011 Dysplasia of cervix 1988 Esophageal reflux Lipoma of skin and subcutaneous tissue of neck 11/08/2019 right posterior neck Mixed hyperlipidemia 03/24/2016 Polymyalgia rheumatica (HCC) 09/16/2021 PVD (peripheral vascular disease) with claudication 07/27/2020 Raynaud's phenomenon without gangrene 11/27/2020 Thyroid nodule 11/08/2019 Unspecified hypothyroidism PAST SURGICAL HISTORY Procedure Laterality Date APPENDECTOMY BIOPSY CERVIX SINGLE/MULT/EXCISION OF LESION SPX CATARACT SURGERY, COMPLEX 05/25/2010 CHOLECYSTECTOMY Cholecystectomy COLONOSCOPY FLX DX W/COLLJ SPEC WHEN PFRMD 06/03/2005 Colonoscopy with bx COLONOSCOPY FLX DX W/COLLJ SPEC WHEN PFRMD 06/03/2005 Colonoscopy with polypectomy COLONOSCOPY FLX DX W/COLLJ SPEC WHEN PFRMD 08/13/2009 Colonoscopy-repeat in 3 years (-2012) COLSC FLX W/RMVL OF TUMOR POLYP LESION SNARE TQ 11/07/2014 hyperplastic polyp - 5 year follow up - h/o polyps ESOPHAGOGASTRODUODENOSCOPY TRANSORAL DIAGNOSTIC 05/30/2005 EGD ESOPHAGOGASTRODUODENOSCOPY TRANSORAL DIAGNOSTIC 10/2023 LAPAROSCOPIC HEMICOLECTOMY Right 05/25/2005 LEEP PROCEDURE (CUT AND COVER LINE WORKER DEPT)_*[place] 05/25/1988 Current Outpatient Medications on File Prior to Visit Medication Sig aspirin, enteric coated (ASPIRIN, ENTERIC COATED) 81 mg EC tablet Take 1 tablet by mouth every other day. No current facility-administered medications on file prior to visit. Social History Tobacco Use Smoking status: Never Smokeless tobacco: Never Vaping Use Vaping status: Never Used Substance Use Topics Alcohol use: No Drug use: No ALLERGIES Allergen Reactions Lovastatin Myalgia Severe myalgia, gi upset, Amqmzwh-Exv-Xea Red* Myalgia Ramo (more content not included)... [facility] 10-28-2024 Note HNO ID: [id number] Author: MACKENZIE HOLCOMB MD Service: ? Author Type: Physician Type: Procedures Filed: 12/02/2024 17:18 Note Text: Patient Name: Dinah Nelson : 1940 Ordering Provider: ELIANA CARRERA Indication: G45.9 Transient cerebral ischemic attack, unspecified Type of Monitor: Extended Monitoring-Zio Patch Enrollment Dates: 11/02/2024-11/16/2024 IRHYTHM FINDINGS: Patient had a min HR of 54 bpm, max HR of 136 bpm, and avg HR of 81 bpm. Predominant underlying rhythm was Sinus Rhythm. 9 Supraventricular Tachycardia runs occurred, the run with the fastest interval lasting 15 beats with a max rate of 136 bpm (avg 112 bpm); the run with the fastest interval was also the longest. Isolated SVEs were rare (<1.0%), SVE Triplets were rare (<1.0%), and no SVE Couplets were present. Isolated VEs were rare (<1.0%), and no VE Couplets or VE Triplets were present. Mackenzie Holcomb MD, [facility]. Staff reporting developer, [facility]. [facility] 10-19-2024 Telephone encounter Note Referral approved an patient notified can do at [facility]. Appointment canceled for US an referral/order faxed to [facility] an patient aware to call and schedule Mikaela Felton MA [facility] 10-19-2024 Miscellaneous Notes Referral approved an patient notified can do at [facility]. Appointment canceled for [facility] an referral/order faxed to [facility] an patient aware to call and schedule Mikaela Felton MA US in [place] does not currently do Carotid US however there are openings in [place] today 10/19/2024 if patient is willing to travel. If not, we will need to cancel the [place] Carotid scheduled at [facility] since Carotids are not currently performed in Radiology in [place]. [facility] department advised they do not do carotid only dvt instead of vasc. Referral plsced to see if we can do at [facility] sooner. Email sent to rome moraes to see if clearance needed Mikaela Felton MA Original order was placed for US carotid artry [facility] but when scheduling pss advised needed change to US due to vas lab availability. Mikaela Felton MA May we please have carotid vascular lab orders placed. [facility] Carotid Arteries [facility] Thank you very much! Shanon Curtis RDMS documented in this encounter [facility] 10-19-2024 Telephone encounter Note US in [place] does not currently do Carotid US however there are openings in [place] today 10/19/2024 if patient is willing to travel. If not, we will need to cancel the US Carotid scheduled at [facility] since Carotids are not currently performed in Radiology in [place]. Stacy Michel, PSS [facility] 10-18-2024 Telephone encounter Note [facility] department advised they do not do carotid only dvt instead of vasc. Referral plsced to see if we can do at [facility] sooner. Email sent to rome moraes to see if clearance needed Mikaela Felton MA [facility] 10-18-2024 Telephone encounter Note Original order was placed for [facility] carotid artry [facility] but when scheduling pss advised needed change to [place] due to vas lab availability. Mikaela Felton MA [facility] 10-18-2024 Telephone encounter Note May we please have carotid vascular lab orders placed. [facility] Carotid Arteries [facility] Thank you very much! Shanon Curtis RDMS [facility] 10-14-2024 Note HNO ID: [id number] Author: BENNETT WEIR MD Service: ? Author Type: Physician Type: Progress Notes Filed: 10/14/2024 13:49 Note Text: This note was created using [email or web address]. Subjective Patient presents with: Leidyeck Dinah is a 84-year-old female, with a history of TIA and aortic stenosis, presenting for follow-up after an ER visit for headache, dizziness, weakness, and fatigue. Dinah was seen in the ER on September 29 for an episode of dizziness, weakness, and fatigue. A brain CT showed no acute findings, and a chest x-ray showed no acute disease. Laboratory results were unremarkable, with no indication of UTI or leukocytosis. EKG was normal. She was prescribed metoclopramide TID PRN for nausea and vertigo. She was evaluated by our nurse practitioner on October 04, reporting improvement in symptoms but also giving a history of transient visual disturbance or loss of vision around September 30. She was referred to neurology for symptoms, with a personal history of TIA. The neurology consultation is scheduled for October 28, and she is also scheduled for physical therapy starting on October 24. On September 30, she was evaluated by Dr. Rahman at the [facility] for bilateral visual loss. No acute findings were noted, and she was advised to continue taking aspirin 81 mg daily and to return to the ER for recurrent symptoms. She has a history of TIA with no recent carotid imaging and a history of aortic stenosis, with the last echocardiogram on file from 2023. Review of Systems Constitutional: Negative for fatigue. Eyes: Negative for visual disturbance. Respiratory: Negative for shortness of breath. Cardiovascular: Negative for chest pain, palpitations and leg swelling. Gastrointestinal: Negative. Musculoskeletal: Positive for arthralgias. Neurological: See HPI ACTIVE PROBLEM LIST Benign Neoplasm of Colon Mixed Hyperlipidemia Aortic Valve Stenosis, Mild Chronic Urticaria Obesity, Class I, Bmi 30-34.9 Multiple Thyroid Nodules Essential Hypertension Pvd (Peripheral Vascular Disease) With Claudication Raynaud's Phenomenon Without Gangrene Anxiety About Health Dysphagia Current Outpatient Medications Medication Sig aspirin, enteric coated (ASPIRIN, ENTERIC COATED) 81 mg EC tablet Take 1 tablet by mouth every other day. No current facility-administered medications for this visit. Objective BP 126/80 Pulse 80 Resp 16 Ht 157 cm (5' 1.81) Wt 71.6 kg (157 lb 13.6 oz) SpO2 98% BMI 29.05 kg/m? Physical Exam Constitutional: General: She is not in acute distress. Eyes: Extraocular Movements: Extraocular movements intact. Conjunctiva/sclera: Conjunctivae normal. Neck: Vascular: No carotid bruit. Cardiovascular: Rate and Rhythm: Normal rate and regular rhythm. Heart sounds: S1 normal and S2 normal. Murmur heard. Systolic murmur is present with a grade of 1/6. Comments: ULSB murmur Pulmonary: Breath sounds: Normal breath sounds. Musculoskeletal: Right lower leg: No edema. Left lower leg: No edema. Neurological: General: No focal deficit present. Mental Status: She is alert. Assessment and Plan 1. Vision loss, bilateral - ICD9: 369.3, ICD10: H54.3 (primary diagnosis) Amaurosis fugax vs. Ophthalmic migraine. - US CAROTID BILATERAL 2. Vertigo - ICD9: 780.4, ICD10: R42 Improved. - [facility] CAROTID ARTERIES [facility] - US CAROTID BILATERAL 3. Aortic valve stenosis, mild - ICD9: 424.1, ICD10: I35.0 Recheck. - ECHO - PERFLUTREN LIPID MICROSPHERES 1.1 MG/ML INJECTION IN NS 10 ML - SODIUM CHLORIDE 0.9 % (FLUSH) INJECTION SYRINGE Patient indicated understanding and willingness to follow recommendations. Bennett Weir MD [facility] 10-04-2024 Note HNO ID: [id number] Author: TAMIKO BUCHANAN APRN.AUDIO VISUAL COORDINATOR Service: ? Author Type: Nurse Practitioner Type: Progress Notes Filed: 10/04/2024 11:46 Note Text: CC: Patient presents with: ER F/U: Dizziness, abdominal pain- lower middle, diarrhea HPI Recording using hiogi software for draft documentation of the visit was discussed with the patient/authorized tax representative; all questions welcomed and answered. Patient/authorized tax representative agreed to proceed Dinah is a 84-year-old female, with a history of vertigo and TIA, presenting for an ER follow-up. Dinah presented to the ER on 09/29 with a 2-day history of weakness, fatigue, and dizziness described as the room spinning. The dizziness worsened on the morning of 09/29 and was associated with nausea. She was evaluated by her eye doctor the day before, and the exam was negative. ER workup included an EKG, which was unremarkable, and a CT brain, which was normal for her age. Lab workup was also unremarkable, with a WBC count of 10.5, hemoglobin 15.3, hematocrit 43.2, platelets 237, sodium 140, potassium 4.1, BUN 16, and creatinine 0.71. Urinalysis was completely negative. Chest x-ray showed no active cardiopulmonary disease. She was discharged home with a prescription for Reglan as needed for nausea. Since the ER visit, Dinah reports an episode of split vision, where the left side of objects appeared missing in both eyes, described as a giant silver spider web. This episode occurred the evening after the ER visit and lasted less than 10 minutes. She returned to her eye doctor, who found no abnormalities. She denies any further episodes of split vision, dizziness, vertigo, or nausea since the ER visit. She also denies any associated symptoms such as cephalalgia during the vision episode. Dinah has a history of similar symptoms years ago, including a TIA with unremarkable workups. She reports a longstanding issue with balance, feeling like she is leaning to the left while walking, which has been present for years and sometimes worsens. She uses a cane mostly for balance. She denies any recent falls due to vertigo or feeling off balance. She also reports longstanding palpitations, with no new or worsening episodes. Dinah is currently taking baby aspirin every 3 days and was unable to tolerate statins. She is not taking Zofran or Reglan. She monitors her blood pressure at home but reports that her device does not register correctly. She denies any chest pain or dyspnea. Review of Systems Constitutional: Negative for chills, diaphoresis, fatigue and fever. Neurological: Negative for seizures, syncope, facial asymmetry, speech difficulty, weakness and numbness. PAST MEDICAL HISTORY Diagnosis Date Aortic valve sclerosis 03/24/2016 Aortic valve stenosis, mild 08/15/2023 Atherosclerosis of arteries 03/24/2016 Benign meningioma of brain (HCC) 11/08/2019 Benign neoplasm of colon Benign neoplasm of stomach Cataract Both eyes COVID-19 05/07/2022 Diverticulitis Diverticulosis 04/15/2011 Dysplasia of cervix 1989 Esophageal reflux Lipoma of skin and subcutaneous tissue of neck 11/08/2019 right posterior neck Mixed hyperlipidemia 03/24/2016 Polymyalgia rheumatica (HCC) 09/16/2021 PVD (peripheral vascular disease) with claudication 07/27/2020 Raynaud's phenomenon without gangrene 11/27/2020 Thyroid nodule 11/08/2019 Unspecified hypothyroidism PAST SURGICAL HISTORY Procedure Laterality Date APPENDECTOMY BIOPSY CERVIX SINGLE/MULT/EXCISION OF LESION SPX CATARACT SURGERY, COMPLEX 05/25/2010 CHOLECYSTECTOMY Cholecystectomy COLONOSCOPY FLX DX W/COLLJ SPEC WHEN PFRMD 06/03/2005 Colonoscopy with bx COLONOSCOPY FLX DX W/COLLJ SPEC WHEN PFRMD 06/03/2005 Colonoscopy with polypectomy COLONOSCOPY FLX DX W/COLLJ SPEC WHEN PFRMD 08/13/2009 Colonoscopy-repeat in 3 years (-2012) COLSC FLX W/RMVL OF TUMOR POLYP LESION SNARE TQ 11/07/2014 hyperplastic polyp - 5 year follow up - h/o polyps ESOPHAGOGASTRODUODENOSCOPY TRANSORAL DIAGNOSTIC 05/30/2005 EGD ESOPHAGOGASTRODUODENOSCOPY TRANSORAL DIAGNOSTIC 10/2023 LAPAROSCOPIC HEMICOLECTOMY Right 05/25/2005 LEEP PROCEDURE (CUT AND COVER LINE WORKER DEPT)_*[place] 05/25/1988 ALLERGIES Lovastatin, Axyshxi-Lsm-Fhk Reductase Inhibitors, Crestor [Rosuvastatin Calcium], Lipitor [Atorvastatin Calcium], Bactrim [Sulfamethoxazole], Cipro [Ciprofloxacin], Fenofibrate, Ivp Dye [Iodine], Keflex [Cephalexin], Penicillins, and Zetia [Ezetimibe] MEDICATIONS aspirin, enteric coated (ASPIRIN, ENTERIC COATED) 81 mg EC tablet Take 1 tablet by mouth every other day. FAMILY HISTORY Problem Relation Age of Onset Heart Mother Stroke Mother Heart Father heart attack Social History Tobacco Use Smoking status: Never Smokeless tobacco: Never Vaping Use Vaping status: Never Used Substance Use Topics Alcohol use: No Drug use: No BP 116/80 Pulse 80 Resp 14 Wt 71.5 kg (157 lb 10.1 oz) Sp (more content not included)... [facility] 10-04-2024 History of Presen t illness Narrative CC: Patient presents with: ER F/U: Dizziness, abdominal pain- lower middle, diarrhea HPI Recording using ambient Circlezon software for draft documentation of the visit was discussed with the patient/authorized tax representative; all questions welcomed and answered. Patient/authorized tax representative agreed to proceed Dinah is a 84-year-old female, with a history of vertigo and TIA, presenting for an ER follow-up. Dinah presented to the ER on 09/29 with a 2-day history of weakness, fatigue, and dizziness described as the room spinning. The dizziness worsened on the morning of 09/29 and was associated with nausea. She was evaluated by her eye doctor the day before, and the exam was negative. ER workup included an EKG, which was unremarkable, and a CT brain, which was normal for her age. Lab workup was also unremarkable, with a WBC count of 10.5, hemoglobin 15.3, hematocrit 43.2, platelets 237, sodium 140, potassium 4.1, BUN 16, and creatinine 0.71. Urinalysis was completely negative. Chest x-ray showed no active cardiopulmonary disease. She was discharged home with a prescription for Reglan as needed for nausea. Since the ER visit, Dinah reports an episode of split vision, where the left side of objects appeared missing in both eyes, described as a giant silver spider web. This episode occurred the evening after the ER visit and lasted less than 10 minutes. She returned to her eye doctor, who found no abnormalities. She denies any further episodes of split vision, dizziness, vertigo, or nausea since the ER visit. She also denies any associated symptoms such as cephalalgia during the vision episode. Dinah has a history of similar symptoms years ago, including a TIA with unremarkable workups. She reports a longstanding issue with balance, feeling like she is leaning to the left while walking, which has been present for years and sometimes worsens. She uses a cane mostly for balance. She denies any recent falls due to vertigo or feeling off balance. She also reports longstanding palpitations, with no new or worsening episodes. Dinah is currently taking baby aspirin every 3 days and was unable to tolerate statins. She is not taking Zofran or Reglan. She monitors her blood pressure at home but reports that her device does not register correctly. She denies any chest pain or dyspnea. Review of Systems Constitutional: Negative for chills, diaphoresis, fatigue and fever. Neurological: Negative for seizures, syncope, facial asymmetry, speech difficulty, weakness and numbness. PAST MEDICAL HISTORY Diagnosis Date Aortic valve sclerosis 03/24/2016 Aortic valve stenosis, mild 08/15/2023 Atherosclerosis of arteries 03/24/2016 Benign meningioma of brain (HCC) 11/08/2019 Benign neoplasm of colon Benign neoplasm of stomach Cataract Both eyes COVID-19 05/07/2022 Diverticulitis Diverticulosis 04/15/2011 Dysplasia of cervix 1989 Esophageal reflux Lipoma of skin and subcutaneous tissue of neck 11/08/2019 right posterior neck Mixed hyperlipidemia 03/24/2016 Polymyalgia rheumatica (HCC) 09/16/2021 PVD (peripheral vascular disease) with claudication 07/27/2020 Raynaud's phenomenon without gangrene 11/27/2020 Thyroid nodule 11/08/2019 Unspecified hypothyroidism PAST SURGICAL HISTORY Procedure Laterality Date APPENDECTOMY BIOPSY CERVIX SINGLE/MULT/EXCISION OF LESION SPX CATARACT SURGERY, COMPLEX 05/25/2010 CHOLECYSTECTOMY Cholecystectomy COLONOSCOPY FLX DX W/COLLJ SPEC WHEN PFRMD 06/03/2005 Colonoscopy with bx COLONOSCOPY FLX DX W/COLLJ SPEC WHEN PFRMD 06/03/2005 Colonoscopy with polypectomy COLONOSCOPY FLX DX W/COLLJ SPEC WHEN PFRMD 08/13/2009 Colonoscopy-repeat in 3 years (-2012) COLSC FLX W/RMVL OF TUMOR POLYP LESION SNARE TQ 11/07/2014 hyperplastic polyp - 5 year follow up - h/o polyps ESOPHAGOGASTRODUODENOSCOPY TRANSORAL DIAGNOSTIC 05/30/2005 EGD ESOPHAGOGASTRODUODENOSCOPY TRANSORAL DIAGNOSTIC 10/2023 LAPAROSCOPIC HEMICOLECTOMY Right 05/25/2005 LEEP PROCEDURE (CUT AND COVER LINE WORKER DEPT)_*[place] 05/25/1988 ALLERGIES Lovastatin, Bffwksx-Pum-Vmt Reductase Inhibitors, Crestor [Rosuvastatin Calcium], Lipitor [Atorvastatin Calcium], Bactrim [Sulfamethoxazole], Cipro [Ciprofloxacin], Fenofibrate, Ivp Dye [Iodine], Keflex [Cephalexin], Penicillins, and Zetia [Ezetimibe] MEDICATIONS aspirin, enteric coated (ASPIRIN, ENTERIC COATED) 81 mg EC tablet Take 1 tablet by mouth every other day. FAMILY HISTORY Problem Relation Age of Onset Heart Mother Stroke Mother Heart Father heart attack Social History Tobacco Use Smoking status: Never Smokeless tobacco: Never Vaping Use Vaping status: Never Used Substance Use Topics Alcohol use: No Drug use: No BP 116/80 Pulse 80 Resp 14 Wt 71.5 kg (157 lb 10.1 oz) SpO2 98% BMI 28.60 kg/m Physical Exam Vitals reviewed. Constitutional: Appearance: Normal appearance. HENT: Right Ear: Tympanic membrane normal. Left Ear: Tympanic membrane normal. Eyes: Extraocular Movements: Extraocular movements intact. Conjunctiva/sclera: Conjunctivae normal. Pupils: Pupils are equal, round, and reactive to light. Cardiovascular: Rate and Rhythm: Normal rate and regular rhythm. Pulmonary: Effort: Pulmonary effort is normal. Breath sounds: Normal breath sounds. No wheezing, rhonchi or rales. Skin: General: Skin is warm and dry. Neurological: Mental Status: She is alert and oriented to person, place, and time. Motor: Motor function is intact. Coordination: Coordination is intact. Gait: Gait is intact. Psychiatric: Mood and Affect: Mood and affect normal. I have reviewed the patient s records from [facility] including diagnostic testing performed, their discharge medications, and my assessment and plan with the patient and any family members present at today s visit. Labs: (09/29) - WBC: 10.5 10 / L - Hemoglobin: 15.3 g/dL - Hematocrit: 43.2% - Platelets: 237 10 / L - Sodium: 140 mmol/L - Potassium: 4.1 mmol/L - BUN: 16 mg/dL - Creatinine: 0.71 mg/dL - Urinalysis: Negative Tests: (09/29) EKG: Unremarkable TIA Workups: Unremarkable Imaging: (09/29) Chest X-ray: No active cardiopulmonary disease (09/29) Head CT: No acute findings (2020) MRI Brain Assessment/Plan 1. Vertigo (R42) Recent episode of vertigo with associated weakness, fatigue, and nausea. No current symptoms of dizziness or vertigo. Previous episodes of vertigo have been reported, with a history of TIA presenting with similar symptoms. Recent ER visit included an unremarkable EKG, normal CT brain for age, and unremarkable lab workup. Patient was discharged with a prescription for Reglan as needed for nausea, which has not been used. - Discussed potential causes of vertigo, including BPPV. - Referral to neurology for further evaluation and potential testing. 2. Visual disturbance (H53.9) Recent episode of visual disturbance described as split vision in both eyes, lasting less than 10 minutes. Ophthalmologic evaluation was unremarkable. No recurrence of visual disturbance since the initial episode. Previous MRI of the brain in 2020 was unremarkable. - Referral to neurology for further evaluation and potential testing. 3. Balance problem (R26.89) Chronic balance issues described as feeling off balance and leaning to the left while walking, present for years with intermittent worsening and improvement. No recent falls reported. Uses a cane for balance support. No new or worsening palpitations reported. - Referral to physical therapy for balance training and management. 4. Personal history of transient ischemic attack (TIA), and cerebral infarction without residual deficits (Z86.73) History of TIA with similar symptoms to recent vertigo episode. Previous hospitalizations and TIA workups were unremarkable. Patient is currently taking baby aspirin every three days. - Continue current aspirin regimen. - Monitor for any new or worsening symptoms. Prescription instructions reviewed with patient as applicable. Potential red flag symptoms discussed with the patient. Reviewed appropriate action plan to take if red flag symptoms occur. Patient agreeable to treatment plan. Tamiko Buchanan APRN.TOMASA documented in this encounter [facility] 10-04-2024 Instructions Tamiko Buchanan APRN.TOMASA - 10/04/2024 11:41 AM EDT We discussed your recent ER visit and follow-up care: - You were seen in the ER on September 29 for dizziness, weakness, and fatigue. Your workup, including a CT scan, EKG, lab tests, and chest X-ray, was unremarkable. You were discharged with a prescription for Reglan as needed for nausea, but you have not needed to take it. We discussed your vision changes: - You experienced a brief episode of vision loss where part of your vision was missing in both eyes. This lasted less than 10 minutes and has not recurred. Your eye doctor did not find any abnormalities during your exam. - I recommended a referral to a neurologist to evaluate whether this could be related to your nervous system or brain. This referral has been placed, and you can decide to pursue it if you wish. We discussed your balance issues: - You have had balance problems for years, which sometimes worsen. You use a cane for stability and have not had any recent falls. - I recommended physical therapy to help improve your balance and reduce your risk of falls. A referral has been placed, and you can schedule this if you decide to proceed. I encourage you to consider this, as falls can lead to serious complications. Next steps: - Referrals have been placed for both a neurologist and physical therapy. You can contact our office if you decide to pursue either of these options. - Please monitor your symptoms, and let us know if you experience any new or worsening issues, such as dizziness, vision changes, or falls. If you have any questions or concerns, feel free to reach out. documented in this encounter [facility] 10-03-2024 Note HNO ID: [id number] Author: DAQUAN CHAMPION MD Service: ? Author Type: Physician Type: Progress Notes Filed: 10/03/2024 13:39 Note Text: Daquan Champion MD Department of Orthopaedics Orthopaedics [address] [facility] [address] Dept: [phone] Dept October 03, 2024 CHIEF COMPLAINT: New and Pain of the Left Knee and New and Pain of the Right Knee Dinah is an 84-year-old female presenting for evaluation of knee pain. HPI Patient here today for bilateral knee pain. Has no pain today, but reports she becomes more painful as the day goes on. The left leg swells. Was at [facility]note 3] on 08/19/2024. Knee Pain: - Reports moderate arthritis in the right knee with a bone spur under the patella. - Pain localized to the anterior and medial aspects of the knee. - Diagnosed with a Sibley's cyst in the left knee, measuring 5 cm in August. - Denies current interest in cortisone injections or use of a knee brace. - Currently using Tylenol for pain management; has not tried Voltaren gel. - Allergic to multiple medications, including antihypertensives, statins, and antibiotics. Dizziness: - Recent ED visit on the 8th for dizziness, which has since improved. ASSESSMENT: M17.0 Primary osteoarthritis of both knees M25.561, M25.562, G89.29 Chronic pain of both knees M71.22 Synovial cyst of popliteal space (Sibley), left knee 1. Primary osteoarthritis of both knees (M17.0) 2. Chronic pain of both knees (M25.561) 3. Synovial cyst of popliteal space (Sibley), left knee (M71.22) - X-rays show moderate osteoarthritis in the right knee with good joint space preservation and a small osteophyte under the patella. Left knee has a 5 cm Sibley's cyst noted in August, which appears smaller on palpation today. - Physical exam reveals mild tenderness along the medial joint line, neutral alignment, and stable ligaments with varus and valgus stress. Range of motion lacks a few degrees of terminal extension, flexion to 125 degrees. No significant swelling or effusion observed. - Discussed the benign nature of the Sibley's cyst, which may resolve spontaneously. - Provided patient with a simple quadriceps strengthening program consisting of four exercises to be performed daily to improve knee support and reduce pain. - Recommended use of Voltaren gel, applied topically to the medial aspect of the knee 2-3 times daily as needed for pain management. - Advised on the potential use of ice or heat for symptomatic relief. - Discussed intra-articular corticosteroid and hyaluronic acid injections as future options if pain persists or worsens. - Patient understands and agrees with the treatment plan. Will continue to monitor patient for Primary osteoarthritis of both knees Chronic pain of both knees Synovial cyst of popliteal space (sibley), left knee, patient to schedule visit as per follow up discussed. FOLLOW UP INSTRUCTIONS: As needed OBJECTIVE: Ms. Dinah Nelson is a pleasant 84 year old in no apparent distress. Gen:There were no vitals taken for this visit. nl development, non obese, no deformities ENT: Normocephalic, normal hearing, moist mucosa CV: capillary refill < 2 secs, no peripheral edema/varicosities Skin: no rash, bruising or lesions. Good turgor. Psych: cooperative and appropriate, alert and oriented x 3, good mood and affect. Musculoskeletal: - Musculoskeletal: - Left Knee: - No obvious swelling or effusion; palpable fullness in the popliteal fossa consistent with a Sibley's cyst; mild tenderness to palpation along the medial joint line; neutral alignment. - ROM: Lacks a few degrees of terminal extension, flexion to 125 degrees. - Ligamentous stability with varus and valgus stress. - Neurological: Patient ambulates well without antalgia, uses a cane. IMAGING: Labs: Tests: Imaging: (09/05) Ultrasound (Left Knee): Sibley's cyst measuring 5 cm in the popliteal fossa. X-ray (Bilateral Knees): Moderate degenerative changes in the right knee, mild degenerative changes in the left knee, and a bone spur behind the patella. Supporting Subjective Information Below: Past Medical History: PAST MEDICAL HISTORY Diagnosis Date Aortic valve sclerosis 03/24/2016 Aortic valve stenosis, mild 08/15/2023 Atherosclerosis of arteries 03/24/2016 Benign meningioma of brain (HCC) 11/08/2019 Benign neoplasm of colon Benign neoplasm of stomach Cataract Both eyes COVID-19 05/07/2022 Diverticulitis Diverticulosis 04/15/2011 Dysplasia of cervix 1989 Esophageal reflux Lipoma of skin and subcutaneous tissue of neck 11/08/2019 right posterior neck Mixed hyperlipidemia 03/24/2016 Polymyalgia rheumatica (HCC) 09/16/2021 PVD (peripheral vascular disease) with claudication 07/27/2020 Raynaud's phenomenon without gangrene 11/27/2020 Thyroid nodule 11/08/2019 Unspecified hypothyroidism Past Surgical History: PAST SURGICAL HISTORY Procedure Lateral (more content not included)... [facility] 10-03-2024 History of Presen t illness Narrative Daquan Champion MD Department of Orthopaedics Orthopaedics [address] [facility] [address] Dept: [phone] Dept October 03, 2024 CHIEF COMPLAINT: New and Pain of the Left Knee and New and Pain of the Right Knee Dinah is an 84-year-old female presenting for evaluation of knee pain. HPI Patient here today for bilateral knee pain. Has no pain today, but reports she becomes more painful as the day goes on. The left leg swells. Was at [place] [facility] on 08/19/2024. Knee Pain: - Reports moderate arthritis in the right knee with a bone spur under the patella. - Pain localized to the anterior and medial aspects of the knee. - Diagnosed with a Sibley's cyst in the left knee, measuring 5 cm in August. - Denies current interest in cortisone injections or use of a knee brace. - Currently using Tylenol for pain management; has not tried Voltaren gel. - Allergic to multiple medications, including antihypertensives, statins, and antibiotics. Dizziness: - Recent ED visit on the for dizziness, which has since improved. ASSESSMENT: M17.0 Primary osteoarthritis of both knees M25.561, M25.562, G89.29 Chronic pain of both knees M71.22 Synovial cyst of popliteal space (Sibley), left knee 1. Primary osteoarthritis of both knees (M17.0) 2. Chronic pain of both knees (M25.561) 3. Synovial cyst of popliteal space (Sibley), left knee (M71.22) - X-rays show moderate osteoarthritis in the right knee with good joint space preservation and a small osteophyte under the patella. Left knee has a 5 cm Sibley's cyst noted in August, which appears smaller on palpation today. - Physical exam reveals mild tenderness along the medial joint line, neutral alignment, and stable ligaments with varus and valgus stress. Range of motion lacks a few degrees of terminal extension, flexion to 125 degrees. No significant swelling or effusion observed. - Discussed the benign nature of the Sibley's cyst, which may resolve spontaneously. - Provided patient with a simple quadriceps strengthening program consisting of four exercises to be performed daily to improve knee support and reduce pain. - Recommended use of Voltaren gel, applied topically to the medial aspect of the knee 2-3 times daily as needed for pain management. - Advised on the potential use of ice or heat for symptomatic relief. - Discussed intra-articular corticosteroid and hyaluronic acid injections as future options if pain persists or worsens. - Patient understands and agrees with the treatment plan. Will continue to monitor patient for Primary osteoarthritis of both knees Chronic pain of both knees Synovial cyst of popliteal space (sibley), left knee, patient to schedule visit as per follow up discussed. FOLLOW UP INSTRUCTIONS: As needed OBJECTIVE: Ms. Dinah Nelson is a pleasant 84 year old in no apparent distress. Gen:There were no vitals taken for this visit. nl development, non obese, no deformities ENT: Normocephalic, normal hearing, moist mucosa CV: capillary refill < 2 secs, no peripheral edema/varicosities Skin: no rash, bruising or lesions. Good turgor. Psych: cooperative and appropriate, alert and oriented x 3, good mood and affect. Musculoskeletal: - Musculoskeletal: - Left Knee: - No obvious swelling or effusion; palpable fullness in the popliteal fossa consistent with a Sibley's cyst; mild tenderness to palpation along the medial joint line; neutral alignment. - ROM: Lacks a few degrees of terminal extension, flexion to 125 degrees. - Ligamentous stability with varus and valgus stress. - Neurological: Patient ambulates well without antalgia, uses a cane. IMAGING: Labs: Tests: Imaging: (09/05) Ultrasound (Left Knee): Sibley's cyst measuring 5 cm in the popliteal fossa. X-ray (Bilateral Knees): Moderate degenerative changes in the right knee, mild degenerative changes in the left knee, and a bone spur behind the patella. Supporting Subjective Information Below: Past Medical History: PAST MEDICAL HISTORY Diagnosis Date Aortic valve sclerosis 03/24/2016 Aortic valve stenosis, mild 08/15/2023 Atherosclerosis of arteries 03/24/2016 Benign meningioma of brain (HCC) 11/08/2019 Benign neoplasm of colon Benign neoplasm of stomach Cataract Both eyes COVID-19 05/07/2022 Diverticulitis Diverticulosis 04/15/2011 Dysplasia of cervix 1989 Esophageal reflux Lipoma of skin and subcutaneous tissue of neck 11/08/2019 right posterior neck Mixed hyperlipidemia 03/24/2016 Polymyalgia rheumatica (HCC) 09/16/2021 PVD (peripheral vascular disease) with claudication 07/27/2020 Raynaud's phenomenon without gangrene 11/27/2020 Thyroid nodule 11/08/2019 Unspecified hypothyroidism Past Surgical History: PAST SURGICAL HISTORY Procedure Laterality Date APPENDECTOMY BIOPSY CERVIX SINGLE/MULT/EXCISION OF LESION SPX CATARACT SURGERY, COMPLEX 05/25/2010 CHOLECYSTECTOMY Cholecystectomy COLONOSCOPY FLX DX W/COLLJ SPEC WHEN PFRMD 06/03/2005 Colonoscopy with bx COLONOSCOPY FLX DX W/COLLJ SPEC WHEN PFRMD 06/03/2005 Colonoscopy with polypectomy COLONOSCOPY FLX DX W/COLLJ SPEC WHEN PFRMD 08/13/2009 Colonoscopy-repeat in 3 years (-2012) COLSC FLX W/RMVL OF TUMOR POLYP LESION SNARE TQ 11/07/2014 hyperplastic polyp - 5 year follow up - h/o polyps ESOPHAGOGASTRODUODENOSCOPY TRANSORAL DIAGNOSTIC 05/30/2005 EGD ESOPHAGOGASTRODUODENOSCOPY TRANSORAL DIAGNOSTIC 10/2023 LAPAROSCOPIC HEMICOLECTOMY Right 05/25/2005 LEEP PROCEDURE (CUT AND COVER LINE WORKER DEPT)_*[place] 05/25/1988 Family History: FAMILY HISTORY Problem Relation Age of Onset Heart Mother Stroke Mother Heart Father heart attack Social History: Social History Tobacco Use Smoking status: Never Smokeless tobacco: Never Vaping Use Vaping status: Never Used Substance Use Topics Alcohol use: No Drug use: No Medications: Current Outpatient Medications Medication Sig aspirin, enteric coated (ASPIRIN, ENTERIC COATED) 81 mg EC tablet Take 1 tablet by mouth every other day. ondansetron orally disintegrating (ZOFRAN ODT) 4 mg disintegrating tablet Take 4 mg by mouth every 8 hours as needed. No current facility-administered medications for this visit. Allergies: Lovastatin, Rxzpbzu-Orq-Pnm Reductase Inhibitors, Crestor [Rosuvastatin Calcium], Lipitor [Atorvastatin Calcium], Bactrim [Sulfamethoxazole], Cipro [Ciprofloxacin], Fenofibrate, Ivp Dye [Iodine], Keflex [Cephalexin], Penicillins, and Zetia [Ezetimibe] ROS: General (negative for fatigue, malaise, weight loss/gain) HEENT (negative for headache, earache, recent vision changes, sinus pain, sore throat) Respiratory (no recent shortness of breath, hemoptysis) CV (negative for chest tightness, palpitations) Musculoskeletal (see HPI) Psych (no depression, anxiety) Musculoskeletal: (+) left knee pain Recording using ambient [employer] software for draft documentation of the visit was discussed with the patient/authorized tax representative; all questions welcomed and answered. Patient/authorized tax representative agreed to proceed Daquan Champion MD documented in this encounter [facility] 09-29-2024 Radiology Diagnostic study note [facility] Imaging Services [address], [place] [address] Chest PA and Lateral MR#: [id number] Acct: [id number] Name: DINAH NELSON Ashlee Rep #: [id number] : 1940 84 From: Nisreen Garza MD PCP: Dr. Bennett Weir MD Status: R EG ER Study:Chest PA and Lateral Date of Exam: 09/29/24 Exam# [id number] Ordering Dr: Gopal Christianson DO PROCEDURE: CHEST PA AND LATERAL 09/29/2024 REASON FOR EXAM: COUGH TECHNIQUE: Frontal and lateral views of the chest. COMPARISON: 10/27/2023 FINDINGS: Lungs: Lungs clear of pneumonia and congestion. Pleura: No pleural effusions, thickening, or pneumothorax. Heart: Normal in size and configuration. Mediastinum/[place]: Unremarkable. Great vessels: Unremarkable. Bones/soft tissues: Unremarkable. RAD/Chest PA and Lateral IMPRESSION: No active cardiopulmonary disease. Reading Location: [facility] CC: Dr. Gopal Christianson DO; Dr. Bennett Weir MD ~ [place] [employer]: Signed [facility] 09-29-2024 Radiology Diagnostic study note [facility] Imaging Services [address], [place] [address] Brain/Head without Contrast MR#: [id number] Acct: [id number] Name: DINAH NELSON Ashlee Rep #: [id number] : 1940 F 84 From: Nisreen Garza MD PCP: Dr. Bennett Weir MD Status: R EG ER Study:Brain/Head without Contrast Date of Exa m: 09/29/24 Exam# [id number] Ordering Dr: Gopal Christianson DO PROCEDURE: BRAIN/HEAD WITHOUT CONTRAST 09/29/2024 REASON FOR EXAM: VERTIGO TECHNIQUE: Contiguous axial scans of 3.75 mm slice thicknesses with sagittal and coronal reconstruction images. One or more dose reduction techniques were utilized (e.g., automated exposure control, adjustment of mA and/or kv according to patient size, use of iterative reconstruction technique). RADIATION DOSE SUMMARY: DLP: 745.49 mGycm COMPARISON: 10/27/2023 CT brain. FINDINGS: Cerebrum: No intraparenchymal hemorrhage. No abnormal areas of encephalomalacia.No mass effect or midline shift. [place]-white matter differentiation is normal. Ventricles and cisterns: Appropriate size for patient's age. Extra-axial fluid: Unremarkable. Posterior fossa: Unremarkable cerebellum. No abnormalities involving the brainstem. Paranasal sinuses: Normal. Vasculature: Unremarkable. Mastoid air cells: unremarkable. Calvarium: Mild hyperostosis frontalis interna. Soft tissues: Unremarkable. . CT/Brain/Head without Contrast IMPRESSION: NO ACUTE FINDINGS. Reading Location: [facility] CC: Dr. Gopal Christianson DO; Dr. Bennett Weir MD ~ [place]: Signed [facility] 09-14-2024 Note HNO ID: [id number] Author: TEETEE TEIXEIRA MA Service: ? Author Type: Procurement Engineer Type: Progress Notes Filed: 09/14/2024 12:21 Note Text: POPULATION HEALTH NAVIGATION OUTREACH Action/FYI QMCODES MESSAGE SENT Topic Due (Y or N) Comments Medicare Wellness y Last wellness exam 11-21-22 PCP Follow up Colorectal Cancer Screening Controlling Blood Pressure A1C HCC Flu Vaccine Care Everywhere Reviewed MyChart Activation Updated Appointment Note Reason for Outreach Care Gap/HCC or Scheduling Wellness Visits Care Gaps due: Medicare Annual Wellness Visit Patient Contacted: Unable or unnecessary to reach patient: Left message [employer] and Tinder message sent Navigation Signature: Teetee Teixeira MA September 14, 2024 12:15 PM [facility] 09-14-2024 History of Presen t illness Narrative POPULATION HEALTH NAVIGATION OUTREACH Action/FYI LVM [employer]Better MESSAGE SENT Topic Due (Y or N) Comments Medicare Wellness y Last wellness exam 11-21-22 PCP Follow up Colorectal Cancer Screening Controlling Blood Pressure A1C HCC Flu Vaccine Care Everywhere Reviewed MyChart Activation Updated Appointment Note Reason for Outreach Care Gap/HCC or Scheduling Wellness Visits Care Gaps due: Medicare Annual Wellness Visit Patient Contacted: Unable or unnecessary to reach patient: Left message [employer] and Tinder message sent Navigation Signature: Teetee Teixeira MA September 14, 2024 12:15 PM documented in this encounter [facility] 09-14-2024 Note Patient Outreach (NE TNAV) DINAH NELSON ([id number]) 1940 F Date Time Provider Department 09/14/24 TEETEE TEIXEIRA During your visit today, we recorded the following information about you: Teetee Teixeira MA 09/14/2024 12:21 PM Signed POPULATION HEALTH NAVIGATION OUTREACH Action/[facility] SeatMeHART MESSAGE SENT Topic Due (Y or N) Comments Medicare Wellness y Last wellness exam 11-21-22 PCP Follow up Colorectal Cancer Screening Controlling Blood Pressure A1C HCC Flu Vaccine Care Everywhere Reviewed MyChart Activation Updated Appointment Note Reason for Outreach Care Gap/HCC or Scheduling Wellness Visits Care Gaps due: Medicare Annual Wellness Visit Patient Contacted: Unable or unnecessary to reach patient: Left message Viewpoint LLChart message sent Navigation Signature: Teetee Teixeira MA September 14, 2024 12:15 PM Allergies As of Date: 09/14/2024 Noted Allergy Reaction LOVASTATIN 01/03/2015 17 - Myalgia Comments: Severe myalgia, gi upset, HHOOYAR-XMI-[id number] REDUCTASE INHIBIT*03/22/2015 17 - Myalgia CRESTOR (ROSUVASTATIN [...] PENICILLINS 04/11/2005 12 - Shortness of Breath ZETIA (EZETIMIBE) 08/24/2024 8 - GI Upset Date Reviewed: 09/05/2024 Reviewed by: Gilda Barrientos O[facility] - Fully Assessed Reason for Visit: Population Health Navigation Outreach [[id number]] Cmt[facility] JAMILAH PCSA Prescriptions as of 09/14/2024 - ondansetron orally disintegrating (ZOFRAN ODT) 4 mg disintegrating tablet Take 4 mg by mouth every 8 hours as needed. - aspirin, enteric coated (ASPIRIN, ENTERIC COATED) 81 mg EC tablet Take 1 tablet by mouth every other day. Meds Comments as of 07/20/2023: 07/20/23 Patient reports she does not take any medications, has not filled the cholesterol medication yet. Melissa Le RN 01/20/23 Patient reports no changes to current medications. 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] 06/03/2005 02/22/2015 BENIGN NEOPLASM LG BOWEL [D12.6] 06/03/2005 Diverticulosis of colon (without mention of hem*06/03/2005 02/22/2015 Personal history of colonic polyps [Z86.0100] 08/13/2009 02/22/2015 Diverticulitis [K57.92] 11/13/2009 04/15/2011 Diverticulosis [K57.90] 04/15/2011 03/24/2016 PMB (postmenopausal bleeding) [N95.0] 06/20/2011 03/24/2016 KOLTON favor benign [MXD5267] 06/20/2011 03/24/2016 Hematuria [R31.9] 01/16/2014 02/22/2015 Mixed hyperlipidemia [E78.2] 03/24/2016 Atherosclerosis of arteries [I70.90] 03/24/2016 07/22/2022 Aortic valve stenosis, mild [I35.0] 08/15/2023 Chronic urticaria [L50.8] 03/04/2017 Obesity, Class I, BMI 30-34.9 [E66.811] 09/27/2018 Multiple thyroid nodules [E04.2] 11/08/2019 Essential hypertension [I10] 07/24/2020 PVD (peripheral vascular disease) with claudica*07/27/2020 Raynaud's phenomenon without gangrene [I73.00] 11/27/2020 Anxiety about health [R45.89] 08/30/2021 Polymyalgia rheumatica (HCC) [M35.3] 09/16/2021 07/23/2022 Synovitis of wrist [M65.939] 01/20/2022 07/23/2022 Dysphagia [R13.10] 11/18/2023 Encounter Status:Closed by TEETEE TEIXEIRA on 09/14/24 [facility] 09-05-2024 Note HNO ID: [id number] Author: KIRSTEN LEON, DO Service: ? Author Type: Physician Type: Progress Notes Filed: 09/05/2024 14:27 Note Text: [facility] [place] DEPARTMENT OF VASCULAR SURGERY OUTPATIENT VISIT DATE September 05, 2024 OUTPATIENT VISIT TYPE ESTABLISHED SERVICE DATE: 09/05/2024 SERVICE TIME: 2:05 PM PRIMARY CARE PHYSICIAN: Bennett Weir MD HISTORY OF PRESENT ILLNESS: Ms. Nelson is a 84 year old female who presents today for a vascular surgery follow-up visit for peripheral arterial disease. States pain is improving from one month ago PAST MEDICAL HISTORY Diagnosis Date Aortic valve sclerosis 03/24/2016 Aortic valve stenosis, mild 08/15/2023 Atherosclerosis of arteries 03/24/2016 Benign meningioma of brain (HCC) 11/08/2019 Benign neoplasm of colon Benign neoplasm of stomach Cataract Both eyes COVID-19 05/07/2022 Diverticulitis Diverticulosis 04/15/2011 Dysplasia of cervix 1989 Esophageal reflux Lipoma of skin and subcutaneous tissue of neck 11/08/2019 right posterior neck Mixed hyperlipidemia 03/24/2016 Polymyalgia rheumatica (HCC) 09/16/2021 PVD (peripheral vascular disease) with claudication 07/27/2020 Raynaud's phenomenon without gangrene 11/27/2020 Thyroid nodule 11/08/2019 Unspecified hypothyroidism PAST SURGICAL HISTORY Procedure Laterality Date APPENDECTOMY BIOPSY CERVIX SINGLE/MULT/EXCISION OF LESION SPX CATARACT SURGERY, COMPLEX 05/25/2010 CHOLECYSTECTOMY Cholecystectomy COLONOSCOPY FLX DX W/COLLJ SPEC WHEN PFRMD 06/03/2005 Colonoscopy with bx COLONOSCOPY FLX DX W/COLLJ SPEC WHEN PFRMD 06/03/2005 Colonoscopy with polypectomy COLONOSCOPY FLX DX W/COLLJ SPEC WHEN PFRMD 08/13/2009 Colonoscopy-repeat in 3 years (-2012) COLSC FLX W/RMVL OF TUMOR POLYP LESION SNARE TQ 11/07/2014 hyperplastic polyp - 5 year follow up - h/o polyps ESOPHAGOGASTRODUODENOSCOPY TRANSORAL DIAGNOSTIC 05/30/2005 EGD ESOPHAGOGASTRODUODENOSCOPY TRANSORAL DIAGNOSTIC 10/2023 LAPAROSCOPIC HEMICOLECTOMY Right 05/25/2005 LEEP PROCEDURE (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 aspirin, enteric coated (ASPIRIN, ENTERIC COATED) 81 mg EC tablet Take 1 tablet by mouth every other day. ALLERGIES: ALLERGIES Allergen Reactions Lovastatin Myalgia Severe myalgia, gi upset, Xovipgx-Bja-Yxa Red* Myalgia Crestor [Rosuvastat* Other: See Comments [...] gen) without rash Penicillins Shortness of Breath Zetia [Ezetimibe] GI Upset PHYSICAL EXAM: BP 138/58 (BP Site: Left Arm, BP Position: Sitting, BP Cuff Size: Regular Adult) Pulse 90 SpO2 98% Gen- no distress Ext- no ulcerations, trace edema, varicose veins, spider veins Diagnostic tests reviewed for today's visit: Most recent labs Most recent imaging PVRs Compared to prior study of 03/29/2024, Ankle brachial index was 1.06, in the right leg and .66, in the left leg, on previous study. RIGHT SIDE Resting right ankle brachial index: 0.97 Borderline abnormal ankle brachial index at rest. Right ankle: Borderline abnormal at rest. LEFT SIDE Resting left ankle brachial index: 0.53 Abnormal ankle brachial index at rest diagnostic of peripheral artery disease. Left ankle: Moderate disease at rest. Arterial Duplex- left distal SFA occlusion with reconstitutions, sibley's cyst IMPRESSION: Ms. Nelson is a 84 year old female with peripheral arterial disease . PLAN and RECOMMENDATIONS: Reviewed studies with patient Recommend continued non-interventional therapy- blood pressure and cholesterol control Follow up in 6 months or sooner with any concerns SIGNATURE: Kirsten Leon DO PATIENT NAME: Dinah Nelson DATE: September 05, 2024 TIME: 2:05 PM [facility] 09-05-2024 History of Presen t illness Narrative Images from the original note were not included. [facility] [place] DEPARTMENT OF VASCULAR SURGERY OUTPATIENT VISIT DATE September 05, 2024 OUTPATIENT VISIT TYPE ESTABLISHED SERVICE DATE: 09/05/2024 SERVICE TIME: 2:05 PM PRIMARY CARE PHYSICIAN: Bennett Weir MD HISTORY OF PRESENT ILLNESS: Ms. Nelson is a 84 year old female who presents today for a vascular surgery follow-up visit for peripheral arterial disease. States pain is improving from one month ago PAST MEDICAL HISTORY Diagnosis Date Aortic valve sclerosis 03/24/2016 Aortic valve stenosis, mild 08/15/2023 Atherosclerosis of arteries 03/24/2016 Benign meningioma of brain (HCC) 11/08/2019 Benign neoplasm of colon Benign neoplasm of stomach Cataract Both eyes COVID-19 05/07/2022 Diverticulitis Diverticulosis 04/15/2011 Dysplasia of cervix 1989 Esophageal reflux Lipoma of skin and subcutaneous tissue of neck 11/08/2019 right posterior neck Mixed hyperlipidemia 03/24/2016 Polymyalgia rheumatica (HCC) 09/16/2021 PVD (peripheral vascular disease) with claudication 07/27/2020 Raynaud's phenomenon without gangrene 11/27/2020 Thyroid nodule 11/08/2019 Unspecified hypothyroidism PAST SURGICAL HISTORY Procedure Laterality Date APPENDECTOMY BIOPSY CERVIX SINGLE/MULT/EXCISION OF LESION SPX CATARACT SURGERY, COMPLEX 05/25/2010 CHOLECYSTECTOMY Cholecystectomy COLONOSCOPY FLX DX W/COLLJ SPEC WHEN PFRMD 06/03/2005 Colonoscopy with bx COLONOSCOPY FLX DX W/COLLJ SPEC WHEN PFRMD 06/03/2005 Colonoscopy with polypectomy COLONOSCOPY FLX DX W/COLLJ SPEC WHEN PFRMD 08/13/2009 Colonoscopy-repeat in 3 years (-2012) COLSC FLX W/RMVL OF TUMOR POLYP LESION SNARE TQ 11/07/2014 hyperplastic polyp - 5 year follow up - h/o polyps ESOPHAGOGASTRODUODENOSCOPY TRANSORAL DIAGNOSTIC 05/30/2005 EGD ESOPHAGOGASTRODUODENOSCOPY TRANSORAL DIAGNOSTIC 10/2023 LAPAROSCOPIC HEMICOLECTOMY Right 05/25/2005 LEEP PROCEDURE (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 aspirin, enteric coated (ASPIRIN, ENTERIC COATED) 81 mg EC tablet Take 1 tablet by mouth every other day. ALLERGIES: ALLERGIES Allergen Reactions Lovastatin Myalgia Severe myalgia, gi upset, Agtkojl-Vue-Kjr Red* Myalgia Crestor [Rosuvastat* Other: See Comments [...] gen) without rash Penicillins Shortness of Breath Zetia [Ezetimibe] GI Upset PHYSICAL EXAM: BP 138/58 (BP Site: Left Arm, BP Position: Sitting, BP Cuff Size: Regular Adult) Pulse 90 SpO2 98% Gen- no distress Ext- no ulcerations, trace edema, varicose veins, spider veins Diagnostic tests reviewed for today's visit: Most recent labs Most recent imaging PVRs Compared to prior study of 03/29/2024, Ankle brachial index was 1.06, in the right leg and .66, in the left leg, on previous study. RIGHT SIDE Resting right ankle brachial index: 0.97 Borderline abnormal ankle brachial index at rest. Right ankle: Borderline abnormal at rest. LEFT SIDE Resting left ankle brachial index: 0.53 Abnormal ankle brachial index at rest diagnostic of peripheral artery disease. Left ankle: Moderate disease at rest. Arterial Duplex- left distal SFA occlusion with reconstitutions, sibley's cyst IMPRESSION: Ms. Nelson is a 84 year old female with peripheral arterial disease . PLAN and RECOMMENDATIONS: Reviewed studies with patient Recommend continued non-interventional therapy- blood pressure and cholesterol control Follow up in 6 months or sooner with any concerns SIGNATURE: Kirsten Leon DO PATIENT NAME: Dinah Nelson DATE: September 05, 2024 TIME: 2:05 PM documented in this encounter [facility] 08-29-2024 Note HNO ID: [id number] Author: KIRSTEN LEON DO Service: ? Author Type: Physician Type: Progress Notes Filed: 08/29/2024 15:09 Note Text: [facility] [place] DEPARTMENT OF VASCULAR SURGERY OUTPATIENT VISIT DATE August 29, 2024 OUTPATIENT VISIT TYPE ESTABLISHED SERVICE DATE: 08/29/2024 SERVICE TIME: 2:45 PM PRIMARY CARE PHYSICIAN: Bennett Weir MD HISTORY OF PRESENT ILLNESS: Ms. Nelson is a 84 year old female who presents today for a vascular surgery follow-up visit she noticed a pain about a month ago in her leg. States her pain is better currently. She could not tolerate statin and is only taking aspirin. She went to ER secondary to the pain. Denies rest pain or tissue loss. PAST MEDICAL HISTORY Diagnosis Date Aortic valve sclerosis 03/24/2016 Aortic valve stenosis, mild 08/15/2023 Atherosclerosis of arteries 03/24/2016 Benign meningioma of brain (HCC) 11/08/2019 Benign neoplasm of colon Benign neoplasm of stomach Cataract Both eyes COVID-19 05/07/2022 Diverticulitis Diverticulosis 04/15/2011 Dysplasia of cervix 1989 Esophageal reflux Lipoma of skin and subcutaneous tissue of neck 11/08/2019 right posterior neck Mixed hyperlipidemia 03/24/2016 Polymyalgia rheumatica (HCC) 09/16/2021 PVD (peripheral vascular disease) with claudication 07/27/2020 Raynaud's phenomenon without gangrene 11/27/2020 Thyroid nodule 11/08/2019 Unspecified hypothyroidism PAST SURGICAL HISTORY Procedure Laterality Date APPENDECTOMY BIOPSY CERVIX SINGLE/MULT/EXCISION OF LESION SPX CATARACT SURGERY, COMPLEX 05/25/2010 CHOLECYSTECTOMY Cholecystectomy COLONOSCOPY FLX DX W/COLLJ SPEC WHEN PFRMD 06/03/2005 Colonoscopy with bx COLONOSCOPY FLX DX W/COLLJ SPEC WHEN PFRMD 06/03/2005 Colonoscopy with polypectomy COLONOSCOPY FLX DX W/COLLJ SPEC WHEN PFRMD 08/13/2009 Colonoscopy-repeat in 3 years (-2012) COLSC FLX W/RMVL OF TUMOR POLYP LESION SNARE TQ 11/07/2014 hyperplastic polyp - 5 year follow up - h/o polyps ESOPHAGOGASTRODUODENOSCOPY TRANSORAL DIAGNOSTIC 05/30/2005 EGD ESOPHAGOGASTRODUODENOSCOPY TRANSORAL DIAGNOSTIC 10/2023 LAPAROSCOPIC HEMICOLECTOMY Right 05/25/2005 LEEP PROCEDURE (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 aspirin, enteric coated (ASPIRIN, ENTERIC COATED) 81 mg EC tablet Take 1 tablet by mouth every other day. ALLERGIES: ALLERGIES Allergen Reactions Lovastatin Myalgia Severe myalgia, gi upset, Cwvskhk-Dmd-Qce Red* Myalgia Crestor [Rosuvastat* Other: See Comments [...] gen) without rash Penicillins Shortness of Breath Zetia [Ezetimibe] GI Upset PHYSICAL EXAM: BP 154/67 (BP Site: Left Arm, BP Position: Sitting, BP Cuff Size: Regular Adult) Pulse 93 SpO2 98% Gen- no distress Ext- no ulceration, no significant edema, cooler to touch, palpable dp/pt on right, doppler signals on left dp/pt Diagnostic tests reviewed for today's visit: Most recent labs Most recent imaging PVRs- right 1.06, left 0.66 IMPRESSION: Ms. Nelson is a 84 year old female with peripheral arterial disease . PLAN and RECOMMENDATIONS: Recommend updated arterial duplex and DAYSI due to increased pain from last testing Continue current medications Symptoms are slowly improving and no evidence of limb threatening ischemia SIGNATURE: Kirsten Leon DO PATIENT NAME: Dinah Nelson DATE: August 29, 2024 TIME: 2:45 PM [facility] 08-29-2024 History of Presen t illness Narrative Images from the original note were not included. [facility] [place] DEPARTMENT OF VASCULAR SURGERY OUTPATIENT VISIT DATE August 29, 2024 OUTPATIENT VISIT TYPE ESTABLISHED SERVICE DATE: 08/29/2024 SERVICE TIME: 2:45 PM PRIMARY CARE PHYSICIAN: Bennett Weir MD HISTORY OF PRESENT ILLNESS: Ms. Nelson is a 84 year old female who presents today for a vascular surgery follow-up visit she noticed a pain about a month ago in her leg. States her pain is better currently. She could not tolerate statin and is only taking aspirin. She went to ER secondary to the pain. Denies rest pain or tissue loss. PAST MEDICAL HISTORY Diagnosis Date Aortic valve sclerosis 03/24/2016 Aortic valve stenosis, mild 08/15/2023 Atherosclerosis of arteries 03/24/2016 Benign meningioma of brain (HCC) 11/08/2019 Benign neoplasm of colon Benign neoplasm of stomach Cataract Both eyes COVID-19 05/07/2022 Diverticulitis Diverticulosis 04/15/2011 Dysplasia of cervix 1988 Esophageal reflux Lipoma of skin and subcutaneous tissue of neck 11/08/2019 right posterior neck Mixed hyperlipidemia 03/24/2016 Polymyalgia rheumatica (HCC) 09/16/2021 PVD (peripheral vascular disease) with claudication 07/27/2020 Raynaud's phenomenon without gangrene 11/27/2020 Thyroid nodule 11/08/2019 Unspecified hypothyroidism PAST SURGICAL HISTORY Procedure Laterality Date APPENDECTOMY BIOPSY CERVIX SINGLE/MULT/EXCISION OF LESION SPX CATARACT SURGERY, COMPLEX 05/25/2010 CHOLECYSTECTOMY Cholecystectomy COLONOSCOPY FLX DX W/COLLJ SPEC WHEN PFRMD 06/03/2005 Colonoscopy with bx COLONOSCOPY FLX DX W/COLLJ SPEC WHEN PFRMD 06/03/2005 Colonoscopy with polypectomy COLONOSCOPY FLX DX W/COLLJ SPEC WHEN PFRMD 08/13/2009 Colonoscopy-repeat in 3 years (-2012) COLSC FLX W/RMVL OF TUMOR POLYP LESION SNARE TQ 11/07/2014 hyperplastic polyp - 5 year follow up - h/o polyps ESOPHAGOGASTRODUODENOSCOPY TRANSORAL DIAGNOSTIC 05/30/2005 EGD ESOPHAGOGASTRODUODENOSCOPY TRANSORAL DIAGNOSTIC 10/2023 LAPAROSCOPIC HEMICOLECTOMY Right 05/25/2005 LEEP PROCEDURE (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 aspirin, enteric coated (ASPIRIN, ENTERIC COATED) 81 mg EC tablet Take 1 tablet by mouth every other day. ALLERGIES: ALLERGIES Allergen Reactions Lovastatin Myalgia Severe myalgia, gi upset, Fxbclro-Nyf-Uff Red* Myalgia Crestor [Rosuvastat* Other: See Comments [...] gen) without rash Penicillins Shortness of Breath Zetia [Ezetimibe] GI Upset PHYSICAL EXAM: BP 154/67 (BP Site: Left Arm, BP Position: Sitting, BP Cuff Size: Regular Adult) Pulse 93 SpO2 98% Gen- no distress Ext- no ulceration, no significant edema, cooler to touch, palpable dp/pt on right, doppler signals on left dp/pt Diagnostic tests reviewed for today's visit: Most recent labs Most recent imaging PVRs- right 1.06, left 0.66 IMPRESSION: Ms. Nelson is a 84 year old female with peripheral arterial disease . PLAN and RECOMMENDATIONS: Recommend updated arterial duplex and DAYSI due to increased pain from last testing Continue current medications Symptoms are slowly improving and no evidence of limb threatening ischemia SIGNATURE: Kirsten Leon DO PATIENT NAME: Dinah Nelson DATE: August 29, 2024 TIME: 2:45 PM documented in this encounter [facility] 08-24-2024 Note HNO ID: [id number] Author: TAMIKO BUCHANAN APRN.AUDIO VISUAL COORDINATOR Service: ? Author Type: Nurse Practitioner Type: Progress Notes Filed: 08/24/2024 14:00 Note Text: CC: Patient presents with: ER F/U: Bilateral knee pain/ RT ankle edema HPI Dinah Nelson is a 84 year old female who presents for above. -Bilateral knee pain and right ankle edema: Seen in ED on 08/19 related to right knee pain. X-ray showed no fracture or dislocation. Csxf-op-rafvvmyv appearing osteoarthrosis of the patellofemoral compartment and mild at the medial compartment. Reports today bilateral knee pain and right ankle edema x 2 months. Pain is intermittent, described as a sharp throbbing to the right posterior knee. States she is unable to put full pressure on either leg due to pain. Tylenol taken and was helping the pain initially but is no longer effective in relieving the pain. Has also tried a heating pad to bilateral knees without much relief. Pain today in office is noted at 0/10.Denies warmth, increased swelling and redness to bilateral lower extremities. Knees do not lock up on her or feel like they may give out. PMH includes PAD and PMR. Review of Systems See HPI PAST MEDICAL HISTORY Diagnosis Date Aortic valve sclerosis 03/24/2016 Aortic valve stenosis, mild 08/15/2023 Atherosclerosis of arteries 03/24/2016 Benign meningioma of brain (HCC) 11/08/2019 Benign neoplasm of colon Benign neoplasm of stomach Cataract Both eyes COVID-19 05/07/2022 Diverticulitis Diverticulosis 04/15/2011 Dysplasia of cervix 1988 Esophageal reflux Lipoma of skin and subcutaneous tissue of neck 11/08/2019 right posterior neck Mixed hyperlipidemia 03/24/2016 Polymyalgia rheumatica (HCC) 09/16/2021 PVD (peripheral vascular disease) with claudication 07/27/2020 Raynaud's phenomenon without gangrene 11/27/2020 Thyroid nodule 11/08/2019 Unspecified hypothyroidism PAST SURGICAL HISTORY Procedure Laterality Date APPENDECTOMY BIOPSY CERVIX SINGLE/MULT/EXCISION OF LESION SPX CATARACT SURGERY, COMPLEX 05/25/2010 CHOLECYSTECTOMY Cholecystectomy COLONOSCOPY FLX DX W/COLLJ SPEC WHEN PFRMD 06/03/2005 Colonoscopy with bx COLONOSCOPY FLX DX W/COLLJ SPEC WHEN PFRMD 06/03/2005 Colonoscopy with polypectomy COLONOSCOPY FLX DX W/COLLJ SPEC WHEN PFRMD 08/13/2009 Colonoscopy-repeat in 3 years (-2012) COLSC FLX W/RMVL OF TUMOR POLYP LESION SNARE TQ 11/07/2014 hyperplastic polyp - 5 year follow up - h/o polyps ESOPHAGOGASTRODUODENOSCOPY TRANSORAL DIAGNOSTIC 05/30/2005 EGD ESOPHAGOGASTRODUODENOSCOPY TRANSORAL DIAGNOSTIC 10/2023 LAPAROSCOPIC HEMICOLECTOMY Right 05/25/2005 LEEP PROCEDURE (CUT AND COVER LINE WORKER DEPT)_*[place] 05/25/1988 ALLERGIES Lovastatin, Laufunu-Cbc-Yvh Reductase Inhibitors, Crestor [Rosuvastatin Calcium], Lipitor [Atorvastatin Calcium], Bactrim [Sulfamethoxazole], Cipro [Ciprofloxacin], Fenofibrate, Ivp Dye [Iodine], Keflex [Cephalexin], Penicillins, and Zetia [Ezetimibe] MEDICATIONS ondansetron orally disintegrating (ZOFRAN ODT) 4 mg disintegrating tablet Take 4 mg by mouth every 8 hours as needed. aspirin, enteric coated (ASPIRIN, ENTERIC COATED) 81 mg EC tablet Take 1 tablet by mouth every other day. FAMILY HISTORY Problem Relation Age of Onset Heart Mother Stroke Mother Heart Father heart attack Social History Tobacco Use Smoking status: Never Smokeless tobacco: Never Vaping Use Vaping status: Never Used Substance Use Topics Alcohol use: No Drug use: No BP 118/62 Pulse 94 Resp 12 Wt 71.4 kg (157 lb 6.5 oz) SpO2 97% BMI 28.56 kg/m? Physical Exam Vitals and nursing note reviewed. Constitutional: General: She is awake. Appearance: Normal appearance. She is well-developed. Cardiovascular: Rate and Rhythm: Normal rate and regular rhythm. Pulses: Normal pulses. Heart sounds: Normal heart sounds. Pulmonary: Effort: Pulmonary effort is normal. Breath sounds: Normal breath sounds. Musculoskeletal: Right knee: Swelling (mild) present. No deformity, effusion or erythema. Normal range of motion. Tenderness present. Left knee: No swelling, deformity, effusion or erythema. Normal range of motion. Tenderness present. Right lower leg: Normal. No swelling or tenderness. Left lower leg: Normal. No swelling or tenderness. Right ankle: Swelling present. No deformity or ecchymosis. No tenderness. Normal range of motion. Left ankle: Normal. Legs: Comments: Right ankle Neurological: Mental Status: She is alert. I have reviewed the patient?s records from [facility] including diagnostic testing performed, their discharge medications, and my assessment and plan with the patient and any family members present at today?s visit. ASSESSMENT/PLAN: 1. Chronic pain of both knees - ICD9: 719.46, 338.29, ICD10: M25.561, M25.562, G89.29 (primary diagnosis) Pain secondary to osteoarthritis. - CONSULT TO ORTHOPAEDICS for further evaluation and recommendations - symptom manag (more content not included)... [facility] 08-24-2024 History of Presen t illness Narrative Images from the original note were not included. CC: Patient presents with: ER F/U: Bilateral knee pain/ RT ankle edema HPI Dinah Nelson is a 84 year old female who presents for above. -Bilateral knee pain and right ankle edema: Seen in ED on 08/19 related to right knee pain. X-ray showed no fracture or dislocation. Jjeg-[id number] appearing osteoarthrosis of the patellofemoral compartment and mild at the medial compartment. Reports today bilateral knee pain and right ankle edema x 2 months. Pain is intermittent, described as a sharp throbbing to the right posterior knee. States she is unable to put full pressure on either leg due to pain. Tylenol taken and was helping the pain initially but is no longer effective in relieving the pain. Has also tried a heating pad to bilateral knees without much relief. Pain today in office is noted at 0/10.Denies warmth, increased swelling and redness to bilateral lower extremities. Knees do not lock up on her or feel like they may give out. PMH includes PAD and PMR. Review of Systems See HPI PAST MEDICAL HISTORY Diagnosis Date Aortic valve sclerosis 03/24/2016 Aortic valve stenosis, mild 08/15/2023 Atherosclerosis of arteries 03/24/2016 Benign meningioma of brain (HCC) 11/08/2019 Benign neoplasm of colon Benign neoplasm of stomach Cataract Both eyes COVID-19 05/07/2022 Diverticulitis Diverticulosis 04/15/2011 Dysplasia of cervix 1988 Esophageal reflux Lipoma of skin and subcutaneous tissue of neck 11/08/2019 right posterior neck Mixed hyperlipidemia 03/24/2016 Polymyalgia rheumatica (HCC) 09/16/2021 PVD (peripheral vascular disease) with claudication 07/27/2020 Raynaud's phenomenon without gangrene 11/27/2020 Thyroid nodule 11/08/2019 Unspecified hypothyroidism PAST SURGICAL HISTORY Procedure Laterality Date APPENDECTOMY BIOPSY CERVIX SINGLE/MULT/EXCISION OF LESION SPX CATARACT SURGERY, COMPLEX 05/25/2010 CHOLECYSTECTOMY Cholecystectomy COLONOSCOPY FLX DX W/COLLJ SPEC WHEN PFRMD 06/03/2005 Colonoscopy with bx COLONOSCOPY FLX DX W/COLLJ SPEC WHEN PFRMD 06/03/2005 Colonoscopy with polypectomy COLONOSCOPY FLX DX W/COLLJ SPEC WHEN PFRMD 08/13/2009 Colonoscopy-repeat in 3 years (-2012) COLSC FLX W/RMVL OF TUMOR POLYP LESION SNARE TQ 11/07/2014 hyperplastic polyp - 5 year follow up - h/o polyps ESOPHAGOGASTRODUODENOSCOPY TRANSORAL DIAGNOSTIC 05/30/2005 EGD ESOPHAGOGASTRODUODENOSCOPY TRANSORAL DIAGNOSTIC 10/2023 LAPAROSCOPIC HEMICOLECTOMY Right 05/25/2005 LEEP PROCEDURE (CUT AND COVER LINE WORKER DEPT)_*[place] 05/25/1988 ALLERGIES Lovastatin, Uhgggbh-Nur-Owf Reductase Inhibitors, Crestor [Rosuvastatin Calcium], Lipitor [Atorvastatin Calcium], Bactrim [Sulfamethoxazole], Cipro [Ciprofloxacin], Fenofibrate, Ivp Dye [Iodine], Keflex [Cephalexin], Penicillins, and Zetia [Ezetimibe] MEDICATIONS ondansetron orally disintegrating (ZOFRAN ODT) 4 mg disintegrating tablet Take 4 mg by mouth every 8 hours as needed. aspirin, enteric coated (ASPIRIN, ENTERIC COATED) 81 mg EC tablet Take 1 tablet by mouth every other day. FAMILY HISTORY Problem Relation Age of Onset Heart Mother Stroke Mother Heart Father heart attack Social History Tobacco Use Smoking status: Never Smokeless tobacco: Never Vaping Use Vaping status: Never Used Substance Use Topics Alcohol use: No Drug use: No BP 118/62 Pulse 94 Resp 12 Wt 71.4 kg (157 lb 6.5 oz) SpO2 97% BMI 28.56 kg/m Physical Exam Vitals and nursing note reviewed. Constitutional: General: She is awake. Appearance: Normal appearance. She is well-developed. Cardiovascular: Rate and Rhythm: Normal rate and regular rhythm. Pulses: Normal pulses. Heart sounds: Normal heart sounds. Pulmonary: Effort: Pulmonary effort is normal. Breath sounds: Normal breath sounds. Musculoskeletal: Right knee: Swelling (mild) present. No deformity, effusion or erythema. Normal range of motion. Tenderness present. Left knee: No swelling, deformity, effusion or erythema. Normal range of motion. Tenderness present. Right lower leg: Normal. No swelling or tenderness. Left lower leg: Normal. No swelling or tenderness. Right ankle: Swelling present. No deformity or ecchymosis. No tenderness. Normal range of motion. Left ankle: Normal. Legs: Comments: Right ankle Neurological: Mental Status: She is alert. I have reviewed the patient s records from [facility] including diagnostic testing performed, their discharge medications, and my assessment and plan with the patient and any family members present at today s visit. ASSESSMENT/PLAN: 1. Chronic pain of both knees - ICD9: 719.46, 338.29, ICD10: M25.561, M25.562, G89.29 (primary diagnosis) Pain secondary to osteoarthritis. - CONSULT TO ORTHOPAEDICS for further evaluation and recommendations - symptom management discussed including use of ice, heat, topical Voltaren gel, and Tylenol 2. Primary osteoarthritis of both knees - ICD9: 715.16, ICD10: M17.0 As above - CONSULT TO ORTHOPAEDICS Tamiko Buchanan APRN.CNP Prescription instructions reviewed with patient as applicable. Potential red flag symptoms discussed with the patient. Reviewed appropriate action plan to take if red flag symptoms occur. Patient agreeable to treatment plan. Tamiko Buchanan APRN.CNP Medical Decision Making: Problems: Moderate: 1+ chronic illnesses with change Risk: Low: Low risk from testing/treatment Medical Decision Making Level: 3 - Low documented in this encounter [facility] 08-19-2024 Radiology Diagnostic study note [facility] Imaging Services [address] [place] [id number] Knee 4 or More Views MR#: [id number] Acct: [id number] Name: DINAH NELSON Ashlee Rep #: [id number] : 1940 F 84 From: John Varma MD PCP: Dr. Bennett Weir MD Status: R ER Study:Knee 4 or More Views Date of Exam: 08/19/24 Exam# [id number] Ordering Dr: Bonita Ruiz DO PROCEDURE: KNEE 4 OR MORE VIEWS 08/19/2024 REASON FOR EXAM: PAIN, NO INJURY TECHNIQUE: 4 view(s) of the right knee COMPARISON: None available FINDINGS: No fracture or dislocation. Jnll-[id number]-[id number] appearing osteoarthrosis of the patellofemoral compartment and mild at the medial compartment. Chondrocalcinosis noted lateral compartment. Appearance of joint effusion on the lateral view. Vascular calcifications noted. RAD/Knee 4 or More Views IMPRESSION: No fracture or dislocation. Osteoarthrosis as above with appearance of joint effusion noted. Reading Location: [facility] CC: Dr. Ky Riuz DO; Dr. Bennett Weir MD ~ [employer]: Signed [facility] 06-23-2024 Instructions Tamiko Buchanan APRN.TOMASA - 06/23/2024 2:35 PM EST HOME INSTRUCTIONS FOR MANAGEMENT OF CONSTIPATION NON-MEDICATION MEASURES: 1. Increase your intake of fluids daily. Try to include 8 - 8 ounce glasses per day. Sip on fluids throughout the day. 2. Add more fiber to your diet. The recommended daily amount of fiber is 20 to 35 grams. If you are increasing your fiber intake do so slowly to avoid bloating and discomfort. The best source of fiber comes from foods. Examples of high fiber foods include whole grain breads and cereals, fruits (berries, prunes, oranges, etc) and vegetables (lettuce, broccoli, potato with skins, etc.). There are also fiber supplements available over the counter such as Metamucil or Benefiber 3. Increase your daily activity (walking, moving from bed to chair, or exercise in bed) 4. Set aside a time preferably around the same time each day (example: right after breakfast) to move bowels. MEDICATION MEASURES: 1. Miralax twice daily- 1 cap-full in a beverage. Decrease to once daily after normal BM. This is a daily medication, can adjust how much you need over time depending on your stools. For example, decrease dose to half or every other day or so if stools become too loose. Call office on Thursday if constipation does not resolve with above measures Go to ER if you develop severe abdominal pain, vomiting that won't stop, fever above 100.5, rigid/hard abdomen. documented in this encounter [facility] 06-23-2024 Note HNO ID: [id number] Author: TAMIKO BUCHANAN APRN.TOMASA Service: ? Author Type: Nurse Practitioner Type: Progress Notes Filed: 06/24/2024 06:52 Note Text: CC: Patient presents with: ER F/U: [facility] diverticulitis/contestation HPI Dinah Nelson is a 84 year old female who presents today for above. Patient presented to [facility] ER on 06/19/24 with LLQ pain x 1 hour. CBC, CMP, urinalysis and lipase were normal. CT scan indicated acute descending and sigmoid colon diverticulitis. She was discharged home with prescriptions for Flagyl and Levaquin. Today she reports she is feeling much better. No further episodes of abdominal pain. Appetite is good despite mild nausea with antibiotics. Fatigue improving. Her main concern today is constipation intermittently x 2 weeks, getting worse. Stools are small and hard, tries not to strain with BM's. Drinks adequate amounts of liquids and gets plenty of fiber in her diet. Denies black/bloody stools, rectal bleeding, painful BM's, fever, chills, vomiting, diarrhea. She is not taking anything for the constipation. PMH: laparoscopic hemicolectomy in 2005. Constipation intermittently x 2 weeks. Last colonoscopy 2014. Review of Systems See HPI PAST MEDICAL HISTORY Diagnosis Date Aortic valve sclerosis 03/24/2016 Aortic valve stenosis, mild 08/15/2023 Atherosclerosis of arteries 03/24/2016 Benign meningioma of [...] SINGLE/MULT/EXCISION OF LESION SPX CATARACT SURGERY, COMPLEX 05/25/2010 CHOLECYSTECTOMY Cholecystectomy COLONOSCOPY FLX DX W/COLLJ SPEC WHEN PFRMD 06/03/2005 Colonoscopy with bx COLONOSCOPY FLX DX W/COLLJ SPEC WHEN PFRMD 06/03/2005 Colonoscopy with polypectomy COLONOSCOPY FLX DX W/COLLJ SPEC WHEN PFRMD 08/13/2009 Colonoscopy-repeat in 3 years (-2012) COLSC FLX W/RMVL OF TUMOR POLYP LESION SNARE TQ 11/07/2014 hyperplastic polyp - 5 year follow up - h/o polyps ESOPHAGOGASTRODUODENOSCOPY TRANSORAL DIAGNOSTIC 05/30/2005 EGD ESOPHAGOGASTRODUODENOSCOPY TRANSORAL DIAGNOSTIC 10/2023 LAPAROSCOPIC HEMICOLECTOMY Right 05/25/2005 LEEP PROCEDURE (CUT AND COVER LINE WORKER DEPT)_*FL 05/25/1988 ALLERGIES Lovastatin, Ukgqahx-Rha-Ywg Reductase Inhibitors, Crestor [Rosuvastatin Calcium], Lipitor [Atorvastatin Calcium], Bactrim [Sulfamethoxazole], Cipro [Ciprofloxacin], Fenofibrate, Ivp Dye [Iodine], Keflex [Cephalexin], and Penicillins MEDICATIONS metroNIDAZOLE (FLAGYL) 500 mg tablet Take 1 tablet by mouth every 12 hours. ezetimibe (ZETIA) 10 mg tablet Take 1 tablet by mouth once daily. levoFLOXacin (LEVAQUIN) 750 mg tablet Take 750 mg by mouth once daily. ondansetron orally disintegrating (ZOFRAN ODT) 4 mg disintegrating tablet Take 4 mg by mouth every 8 hours as needed. aspirin, enteric coated (ASPIRIN, ENTERIC COATED) 81 mg EC tablet Take 1 tablet by mouth every other day. magnesium oxide 300 mg magnesium tab Take 1 tablet by mouth once daily. FAMILY HISTORY Problem Relation Age of Onset Heart Mother Stroke Mother Heart Father heart attack Social History Tobacco Use Smoking status: Never Smokeless tobacco: Never Vaping Use Vaping status: Never Used Substance Use Topics Alcohol use: No Drug use: No BP 144/70 Pulse 102 Resp 16 Wt 73 kg (160 lb 15 oz) SpO2 98% BMI 29.20 kg/m? Physical Exam Vitals reviewed. Constitutional: Appearance: Normal appearance. HENT: Mouth/Throat: Mouth: Mucous membranes are moist. Eyes: Conjunctiva/sclera: Conjunctivae normal. Cardiovascular: Rate and Rhythm: Normal rate and regular rhythm. Pulmonary: Effort: Pulmonary effort is normal. Breath sounds: Normal breath sounds. Abdominal: General: Bowel sounds are increased. There is no distension. Palpations: Abdomen is soft. Tenderness: There is abdominal tenderness (LLQ, mild). There is no guarding or rebound. Skin: General: Skin is warm and dry. Neurological: Mental Status: She is alert. Psychiatric: Mood and Affect: Mood normal. I have reviewed the patient?s records from [facility] including diagnostic testing performed, their discharge medications, and my assessment and plan with the patient and any family members present at today?s visit. ASSESSMENT/PLAN: 1. Constipation, unspecified constipation type - ICD9: 564.00, ICD10: K59.00 (primary diagnosis) Recommend Miralax twice a day until normal BM, then once (more content not included)... [facility] 06-23-2024 History of Presen t illness Narrative CC: Patient presents with: ER F/U: [facility] diverticulitis/contestation HPI Dinah Nelson is a 84 year old female who presents today for above. Patient presented to [facility] ER on 06/19/24 with LLQ pain x 1 hour. CBC, CMP, urinalysis and lipase were normal. CT scan indicated acute descending and sigmoid colon diverticulitis. She was discharged home with prescriptions for Flagyl and Levaquin. Today she reports she is feeling much better. No further episodes of abdominal pain. Appetite is good despite mild nausea with antibiotics. Fatigue improving. Her main concern today is constipation intermittently x 2 weeks, getting worse. Stools are small and hard, tries not to strain with BM's. Drinks adequate amounts of liquids and gets plenty of fiber in her diet. Denies black/bloody stools, rectal bleeding, painful BM's, fever, chills, vomiting, diarrhea. She is not taking anything for the constipation. PMH: laparoscopic hemicolectomy in 2005. Constipation intermittently x 2 weeks. Last colonoscopy 2014. Review of Systems See HPI PAST MEDICAL HISTORY Diagnosis Date Aortic valve sclerosis 03/24/2016 Aortic valve stenosis, mild 08/15/2023 Atherosclerosis of arteries 03/24/2016 Benign meningioma of [...] SINGLE/MULT/EXCISION OF LESION SPX CATARACT SURGERY, COMPLEX 05/25/2010 CHOLECYSTECTOMY Cholecystectomy COLONOSCOPY FLX DX W/COLLJ SPEC WHEN PFRMD 06/03/2005 Colonoscopy with bx COLONOSCOPY FLX DX W/COLLJ SPEC WHEN PFRMD 06/03/2005 Colonoscopy with polypectomy COLONOSCOPY FLX DX W/COLLJ SPEC WHEN PFRMD 08/13/2009 Colonoscopy-repeat in 3 years (-2012) COLSC FLX W/RMVL OF TUMOR POLYP LESION SNARE TQ 11/07/2014 hyperplastic polyp - 5 year follow up - h/o polyps ESOPHAGOGASTRODUODENOSCOPY TRANSORAL DIAGNOSTIC 05/30/2005 EGD ESOPHAGOGASTRODUODENOSCOPY TRANSORAL DIAGNOSTIC 10/2023 LAPAROSCOPIC HEMICOLECTOMY Right 05/25/2005 LEEP PROCEDURE (CUT AND COVER LINE WORKER DEPT)_*FL 05/25/1988 ALLERGIES Lovastatin, Lolhyzp-Muf-Kvb Reductase Inhibitors, Crestor [Rosuvastatin Calcium], Lipitor [Atorvastatin Calcium], Bactrim [Sulfamethoxazole], Cipro [Ciprofloxacin], Fenofibrate, Ivp Dye [Iodine], Keflex [Cephalexin], and Penicillins MEDICATIONS metroNIDAZOLE (FLAGYL) 500 mg tablet Take 1 tablet by mouth every 12 hours. ezetimibe (ZETIA) 10 mg tablet Take 1 tablet by mouth once daily. levoFLOXacin (LEVAQUIN) 750 mg tablet Take 750 mg by mouth once daily. ondansetron orally disintegrating (ZOFRAN ODT) 4 mg disintegrating tablet Take 4 mg by mouth every 8 hours as needed. aspirin, enteric coated (ASPIRIN, ENTERIC COATED) 81 mg EC tablet Take 1 tablet by mouth every other day. magnesium oxide 300 mg magnesium tab Take 1 tablet by mouth once daily. FAMILY HISTORY Problem Relation Age of Onset Heart Mother Stroke Mother Heart Father heart attack Social History Tobacco Use Smoking status: Never Smokeless tobacco: Never Vaping Use Vaping status: Never Used Substance Use Topics Alcohol use: No Drug use: No BP 144/70 Pulse 102 Resp 16 Wt 73 kg (160 lb 15 oz) SpO2 98% BMI 29.20 kg/m Physical Exam Vitals reviewed. Constitutional: Appearance: Normal appearance. HENT: Mouth/Throat: Mouth: Mucous membranes are moist. Eyes: Conjunctiva/sclera: Conjunctivae normal. Cardiovascular: Rate and Rhythm: Normal rate and regular rhythm. Pulmonary: Effort: Pulmonary effort is normal. Breath sounds: Normal breath sounds. Abdominal: General: Bowel sounds are increased. There is no distension. Palpations: Abdomen is soft. Tenderness: There is abdominal tenderness (LLQ, mild). There is no guarding or rebound. Skin: General: Skin is warm and dry. Neurological: Mental Status: She is alert. Psychiatric: Mood and Affect: Mood normal. I have reviewed the patient s records from [facility] including diagnostic testing performed, their discharge medications, and my assessment and plan with the patient and any family members present at today s visit. ASSESSMENT/PLAN: 1. Constipation, unspecified constipation type - ICD9: 564.00, ICD10: K59.00 (primary diagnosis) Recommend Miralax twice a day until normal BM, then once a day. Can discontinue if loose stools develop. Discussed non-medication measures, see patient instructions. Follow-up on Thursday if no BM. 2. Diverticulitis - ICD9: 562.11, ICD10: K57.92 Abdominal pain resolved. Mild tenderness on exam otherwise benign. Continue with antibiotics until complete. Follow-up as above Prescription instructions reviewed with patient as applicable. Potential red flag symptoms discussed with the patient. Reviewed appropriate action plan to take if red flag symptoms occur. Patient agreeable to treatment plan. Tamiko Buchanan APRN.AUDIO VISUAL COORDINATOR documented in this encounter [facility] 05-10-2024 Telephone encounter Note Made third attempt to contact the patient, Left VM to call office with any concerns. Recall placed for annual f/u [facility] 05-10-2024 Miscellaneous Notes Made third attempt to contact the patient, Left VM to call office with any concerns. Recall placed for annual f/u Called patient and left VM that [employer] message was sent regarding results however to call office with any questions or for results Images from the original note were not included. Kirsten Leon, DO You; [facility]20 hours ago (12:39 PM) Sorry for delay I reviewed her PVRs. They are stable. I would like to see her if possible since we only have office visit once a year however if she is doing well, I would follow up next year Thank you Katrin Rachel message sent to the patient Patient had testing on 03/29/24 and would like called with the results Please review and advise documented in this encounter [facility] 05-03-2024 Note HNO ID: [id number] Author: KATIA FALL RN Service: ? Author Type: Registered Nurse Type: Progress Notes Filed: 05/03/2024 11:55 Note Text: [facility] Telephonic Outreach Provider Action/FYI Contacted for: Routine Telephonic Outreach Contact made with patient: No, left message. Katia Fall RN May 03, 2024 11:55 AM [facility] 05-03-2024 History of Presen t illness Narrative [facility] Telephonic Outreach Provider Action/FYI Contacted for: Routine Telephonic Outreach Contact made with patient: No, left message. Katia Fall RN May 03, 2024 11:55 AM documented in this encounter [facility] 05-03-2024 Note Patient Outreach ([facility]) DINAH NELSON ([id number]) 1940 F Date Time Provider Department 05/03/24 KATIA FALL [facility] During your visit today, we recorded the following information about you: Katia Fall RN 05/03/2024 11:55 AM Signed [facility] Telephonic Outreach Provider Action/FYI Contacted for: Routine Telephonic Outreach Contact made with patient: No, left message. Katia Fall RN May 03, 2024 11:55 AM Allergies As of Date: 05/03/2024 Noted Allergy Reaction LOVASTATIN 01/03/2015 17 - Myalgia Comments: Severe myalgia, gi upset, [id number] REDUCTASE INHIBIT*03/22/2015 17 - Myalgia CRESTOR (ROSUVASTATIN [...] 12 - Shortness of Breath Date Reviewed: 02/24/2024 Reviewed by: Tamiko Buchanan, CAR SALESMAN.AUDIO VISUAL COORDINATOR - Fully Assessed Reason for Visit: community monitoring outreach [Other] Cmt: Monthly cdm call Prescriptions as of 05/03/2024 - ezetimibe (ZETIA) 10 mg tablet Take 1 tablet by mouth once daily. - aspirin, enteric coated (ASPIRIN, ENTERIC COATED) 81 mg EC tablet Take 1 tablet by mouth every other day. - magnesium oxide 300 mg magnesium tab Take 1 tablet by mouth once daily. Meds Comments as of 07/20/2023: 07/20/23 Patient reports she does not take any medications, has not filled the cholesterol medication yet. Melissa Le RN 01/20/23 Patient reports no changes to current medications. 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] 06/03/2005 02/22/2015 BENIGN NEOPLASM LG BOWEL [D12.6] 06/03/2005 Diverticulosis of colon (without mention of hem*06/03/2005 02/22/2015 Personal history of colonic polyps [Z86.0100] 08/13/2009 02/22/2015 Diverticulitis [K57.92] 11/13/2009 04/15/2011 Diverticulosis [K57.90] 04/15/2011 03/24/2016 PMB (postmenopausal bleeding) [N95.0] 06/20/2011 03/24/2016 KOLTON favor benign [BDM0841] 06/20/2011 03/24/2016 Hematuria [R31.9] 01/16/2014 02/22/2015 Mixed hyperlipidemia [E78.2] 03/24/2016 Atherosclerosis of arteries [I70.90] 03/24/2016 07/22/2022 Aortic valve stenosis, mild [I35.0] 08/15/2023 Chronic urticaria [L50.8] 03/04/2017 Obesity, Class I, BMI 30-34.9 [E66.811] 09/27/2018 Multiple thyroid nodules [E04.2] 11/08/2019 Essential hypertension [I10] 07/24/2020 PVD (peripheral vascular disease) with claudica*07/27/2020 Raynaud's phenomenon without gangrene [I73.00] 11/27/2020 Anxiety about health [R45.89] 08/30/2021 Polymyalgia rheumatica (HCC) [M35.3] 09/16/2021 07/23/2022 Synovitis of wrist [M65.939] 01/20/2022 07/23/2022 Dysphagia [R13.10] 11/18/2023 Encounter Status:Closed by KATIA FALL on 05/03/24 [facility] 05-02-2024 Telephone encounter Note Patient is out of medication. Please expedite. TY Patient has been identified by name and date of : Yes, Provider Dr Weir Patient phones for refill(s): Requested Prescriptions Pending Prescriptions Disp Refills ezetimibe (ZETIA) 10 mg tablet 90 tablet 1 Sig: Take 1 tablet by mouth once daily. Date of last office visit in primary care: 02/24/2024 Date of next office visit in primary care: 08/24/2024 Please advise. Thank you. Nelly Vargas. [facility] 05-02-2024 Miscellaneous Notes Patient is out of medication. Please expedite. TY Patient has been identified by name and date of : Yes, Provider Dr Weir Patient phones for refill(s): Requested Prescriptions Pending Prescriptions Disp Refills ezetimibe (ZETIA) 10 mg tablet 90 tablet 1 Sig: Take 1 tablet by mouth once daily. Date of last office visit in primary care: 02/24/2024 Date of next office visit in primary care: 08/24/2024 Please advise. Thank you. Nelly Vargas. documented in this encounter [facility] 04-29-2024 Telephone encounter Note Called patient and left VM that [email or web address] message was sent regarding results however to call office with any questions or for results [facility] 04-12-2024 Telephone encounter Note Images from the original note were not included. Kirsten Leon, DO You; [facility] [place]20 hours ago (12:39 PM) Sorry for delay I reviewed her PVRs. They are stable. I would like to see her if possible since we only have office visit once a year however if she is doing well, I would follow up next year Thank you Katrin Rachel message sent to the patient [facility] 04-12-2024 Note HNO ID: [id number] Author: IOANA NORTON RN Service: ? Author Type: Registered Nurse Type: Progress Notes Filed: 04/12/2024 08:49 Note Text: Pt called and is notified of providers message. Pt voices understanding. She states she will think about it and get back to us. Ioana Norton RN [facility] 04-12-2024 Note HNO ID: [id number] Author: TAMIKO BUCHANAN APRN.AUDIO VISUAL COORDINATOR Service: ? Author Type: Nurse Practitioner Type: Progress Notes Filed: 04/12/2024 07:44 Note Text: The recommendations for yearly mammograms ends at age 75. Her last 8 mammograms have been normal and she has only had one abnormal mammogram in the last 15 years. She no longer needs to have mammograms done unless she would like to continue screening. I don't think insurance would pay for the ultrasound regardless. Tamiko Buchanan APRN.AUDIO VISUAL COORDINATOR [facility] 04-11-2024 Note HNO ID: [id number] Author: KATIA FALL RN Service: ? Author Type: Registered Nurse Type: Progress Notes Filed: 04/11/2024 10:36 Note Text: CDM Telephonic Outreach Provider Action/FYI Dr. Weir, Pt is to be scheduled for mammogram w/ tomosynthesis; states this causes pt great discomfort because it is done w/ extra impact (as described by pt); pt would prefer, is asking, if it would be feasible to have an ultrasound done instead. Thank you Katia Fall RN Magento Developer Contacted for: Routine Telephonic Outreach Contact made with patient: Yes Patient identified by name and date of . Discussed care with patient Are you experiencing any new or worsening symptoms you need to talk about today? No Disease Specific Do you check your blood pressure at home? Yes, Enter readings: 130s Do you have new or worsening shortness of breath with activity? No Based on oreman, the following disposition is advised: No symptoms or symptoms present, not severe. Routed to: No Action Needed JENA Education Provided this Outreach: No Katia Fall RN April 11, 2024 10:32 AM [facility] 04-11-2024 History of Presen t illness Narrative [facility] Telephonic Outreach Provider Action/FYI Dr. Weir, Pt is to be scheduled for mammogram w/ tomosynthesis; states this causes pt great discomfort because it is done w/ extra impact (as described by pt); pt would prefer, is asking, if it would be feasible to have an ultrasound done instead. Thank you Katia Fall RN Magento Developer Contacted for: Routine Telephonic Outreach Contact made with patient: Yes Patient identified by name and date of . Discussed care with patient Are you experiencing any new or worsening symptoms you need to talk about today? No Disease Specific Do you check your blood pressure at home? Yes, Enter readings: 130s Do you have new or worsening shortness of breath with activity? No Based on oreman, the following disposition is advised: No symptoms or symptoms present, not severe. Routed to: No Action Needed JENA Education Provided this Outreach: No Katia Fall RN April 11, 2024 10:32 AM [facility] Telephonic Outreach Provider Action/FYI Contacted for: Routine Telephonic Outreach Contact made with patient: No, left message. Katia Fall RN April 08, 2024 2:07 PM documented in this encounter [facility] 04-08-2024 Note HNO ID: [id number] Author: KATIA FALL RN Service: ? Author Type: Registered Nurse Type: Progress Notes Filed: 04/11/2024 10:36 Note Text: [facility] Telephonic Outreach Provider Action/FYI Contacted for: Routine Telephonic Outreach Contact made with patient: No, left message. Katia Fall RN April 08, 2024 2:07 PM [facility] 04-08-2024 Note Patient Outreach (AM [facility]) DINAH NELSON ([id number]) 1940 F Date Time Provider Department 04/08/24 KATIA FALL [facility] During your visit today, we recorded the following information about you: Katia Fall RN 04/11/2024 10:36 AM Signed [facility] Telephonic Outreach Provider Action/FYI Contacted for: Routine Telephonic Outreach Contact made with patient: No, left message. Katia Fall RN April 08, 2024 2:07 PM Katia Fall RN 04/11/2024 10:36 AM Signed [facility] Telephonic Outreach Provider Action/FYI Dr. Weir, Pt is to be scheduled for mammogram w/ tomosynthesis; states this causes pt great discomfort because it is done w/ extra impact (as described by pt); pt would prefer, is asking, if it would be feasible to have an ultrasound done instead. Thank you Katia Fall RN Magento Developer Contacted for: Routine Telephonic Outreach Contact made with patient: Yes Patient identified by name and date of . Discussed care with patient Are you experiencing any new or worsening symptoms you need to talk about today? No Disease Specific Do you check your blood pressure at home? Yes, Enter readings: 130s Do you have new or worsening shortness of breath with activity? No Based on oreman, the following disposition is advised: No symptoms or symptoms present, not severe. Routed to: No Action Needed JENA Education Provided this Outreach: No Katia Fall RN April 11, 2024 10:32 AM Tamiko Buchanan, CAR SALESMAN.AUDIO VISUAL COORDINATOR 04/12/2024 7:44 AM Signed The recommendations for yearly mammograms ends at age 75. Her last 8 mammograms have been normal and she has only had one abnormal mammogram in the last 15 years. She no longer needs to have mammograms done unless she would like to continue screening. I don't think insurance would pay for the ultrasound regardless. Tamiko Buchanan APRN.AUDIO VISUAL COORDINATOR Ioana Norton RN 04/12/2024 8:49 AM Signed Pt called and is notified of providers message. Pt voices understanding. She states she will think about it and get back to us. Ioana Norton RN Allergies As of Date: 04/08/2024 Noted Allergy Reaction LOVASTATIN 01/03/2015 17 - Myalgia Comments: Severe myalgia, gi upset, [id number] REDUCTASE INHIBIT*03/22/2015 17 - Myalgia CRESTOR (ROSUVASTATIN [...] 12 - Shortness of Breath Date Reviewed: 02/24/2024 Reviewed by: Tamiko Buchanan, PAT.AUDIO VISUAL COORDINATOR - Fully Assessed Reason for Visit: community monitoring outreach [Other] Cmt: Monthly cdm call Prescriptions as of 04/12/2024 - aspirin, enteric coated (ASPIRIN, ENTERIC COATED) 81 mg EC tablet Take 1 tablet by mouth every other day. - magnesium oxide 300 mg magnesium tab Take 1 tablet by mouth once daily. - ezetimibe (ZETIA) 10 mg tablet Take 1 tablet by mouth once daily. Meds Comments as of 07/20/2023: 07/20/23 Patient reports she does not take any medications, has not filled the cholesterol medication yet. Melissa Le RN 01/20/23 Patient reports no changes to current medications. 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] 06/03/2005 Diverticulosis of colon (without mention of hem*06/03/2005 02/22/2015 Personal history of colonic polyps [Z86.0100] 08/13/2009 02/22/2015 Diverticulitis [K57.92] 11/13/2009 04/15/2011 Diverticulosis [K57.90] 04/15/2011 03/24/2016 PMB (postmenopausal bleeding) [N95.0] 06/20/2011 03/24/2016 KOLTON favor benign [[id number]] 06/20/2011 03/24/2016 Hematuria [R31.9] 01/16/2014 02/22/2015 Mixed hyperlipidemia [E78.2] 03/24/2016 Atherosclerosis of arteries [I70.90] 03/24/2016 07/22/2022 Aortic valve stenosis, mild [I35.0] 08/15/2023 Chronic urticaria [L50.8] 03/04/2017 Obesity, Class I, BMI 30-34.9 [E66.811] 09/27/2018 Multiple thyroid nodules [E04.2] 11/08/2019 Essential hypertension [I10] 07/24/2020 PVD (peripheral vascular disease) with claudica*07/27/2020 Raynaud's phenomenon without gangrene [I73.00] 11/27/2020 Anxiety about (more content not included)... [facility] 03-31-2024 Telephone encounter Note Patient had testing on 03/29/24 and would like called with the results Please review and advise [facility] 03-16-2024 Note Addended by: Tim DOUGLAS on: 03/16/2024 10:01 AM Modules accepted: Orders [facility] 03-16-2024 Miscellaneous Notes Addended by: JENA DOUGLAS on: 03/16/2024 10:01 AM Modules accepted: Orders documented in this encounter [facility] 03-16-2024 Note HNO ID: [id number] Author: JENA DOUGLAS MA Service: ? Author Type: Procurement Engineer Type: Progress Notes Filed: 03/16/2024 10:01 Note Text: POPULATION HEALTH NAVIGATION OUTREACH Action/FYI Community Monitoring Navigation Pool/CDM Discuss/Due for: Mammogram Pt navigation team - no OV needed; pt asking if she can get scheduled for a mammogram Outcome: 1st attempt - Spoke to patient Scheduled Mammogram - steel estimator completed - offered to switch Follow Up with Dr. Morrison on 08/24/2024 to Medicare Wellness, patient declined Reason for Outreach Community Monitoring/Network Navigator Pools AND Phone Line: CDM Patient Contacted: Spoke to patient/parent/or legal guardian Patient identified by name and : Yes Community Monitoring/Network Navigator Pools AND Phone Line actions taken: Patient scheduled: Specialty Scheduling 03/23/2024 in [facility] with [facility] - Dx: Encounter for screening mammogram for malignant neoplasm of breast [Z12.31 (ICD-10-CM)] 03/29/2024 in [facility] with [facility] - PVD (peripheral vascular disease) (HCC) [I73.9] 03/29/2024 in [facility] with KIRSTEN LEON - 1 year follow up after testing 08/24/2024 in [facility] with TAMIKO BUCHANAN - 6 month follow up Navigation Signature: Jena Douglas MA March 16, 2024 9:49 AM [facility] 03-16-2024 History of Presen t illness Narrative POPULATION HEALTH NAVIGATION OUTREACH Action/FYI Community Monitoring Navigation Pool/CDM Discuss/Due for: Mammogram Pt navigation team - no OV needed; pt asking if she can get scheduled for a mammogram Outcome: 1st attempt - Spoke to patient Scheduled Mammogram - steel estimator completed - offered to switch Follow Up with Dr. Morrison on 08/24/2024 to Medicare Wellness, patient declined Reason for Outreach Community Monitoring/Network Navigator Pools & Phone Line: [facility] Patient Contacted: Spoke to patient/parent/or legal guardian Patient identified by name and : Yes Community Monitoring/Network Navigator Pools & Phone Line actions taken: Patient scheduled: Specialty Scheduling 03/23/2024 in [facility] with [facility] - Dx: Encounter for screening mammogram for malignant neoplasm of breast [Z12.31 (ICD-10-CM)] 03/29/2024 in [facility] with [facility] - PVD (peripheral vascular disease) (HCC) [I73.9] 03/29/2024 in [facility] with KIRSTEN LEON - 1 year follow up after testing 08/24/2024 in [facility] with TAMIKO BUCHANAN - 6 month follow up Navigation Signature: Jena Douglas MA March 16, 2024 9:49 AM CDM Telephonic Outreach Provider Action/FYI Pt navigation team - no OV needed; pt asking if she can get scheduled for a mammogram Contacted for: Routine Telephonic Outreach Contact made with patient: Yes Patient identified by name and date of . Discussed care with patient Are you experiencing any new or worsening symptoms you need to talk about today? No Disease Specific Do you check your blood pressure at home? Yes, Enter readings: 130s Do you have new or worsening shortness of breath with activity? No Based on oreman, the following disposition is advised: No symptoms or symptoms present, not severe. Routed to: Navigation Team: Annual Wellness visit - no OV needed; pt asking if she can get scheduled for a mammogram JENA Education Provided this Outreach: No Katia Fall RN March 16, 2024 9:42 AM CD Telephonic Outreach Provider Action/FYI Contacted for: Routine Telephonic Outreach Contact made with patient: No, left message. Katia Fall RN March 15, 2024 10:44 AM documented in this encounter [facility] 03-16-2024 Note HNO ID: [id number] Author: KATIA FALL RN Service: ? Author Type: Registered Nurse Type: Progress Notes Filed: 03/16/2024 09:43 Note Text: CDM Telephonic Outreach Provider Action/FYI Pt navigation team - no OV needed; pt asking if she can get scheduled for a mammogram Contacted for: Routine Telephonic Outreach Contact made with patient: Yes Patient identified by name and date of . Discussed care with patient Are you experiencing any new or worsening symptoms you need to talk about today? No Disease Specific Do you check your blood pressure at home? Yes, Enter readings: 130s Do you have new or worsening shortness of breath with activity? No Based on oreman, the following disposition is advised: No symptoms or symptoms present, not severe. Routed to: Navigation Team: Annual Wellness visit - no OV needed; pt asking if she can get scheduled for a mammogram JENA Education Provided this Outreach: No Katia Fall RN March 16, 2024 9:42 AM [facility] 03-15-2024 Note HNO ID: [id number] Author: KATIA FALL RN Service: ? Author Type: Registered Nurse Type: Progress Notes Filed: 03/16/2024 09:43 Note Text: [facility] Telephonic Outreach Provider Action/FYI Contacted for: Routine Telephonic Outreach Contact made with patient: No, left message. Katia Fall RN March 15, 2024 10:44 AM [facility] 03-15-2024 Note Patient Outreach (AM [facility]) DINAH NELSON ([id number]) 1940 F Date Time Provider Department 03/15/24 KATIA FALL During your visit today, we recorded the following information about you: Katia Fall, RN 03/16/2024 9:43 AM Signed CD Telephonic Outreach Provider Action/FYI Contacted for: Routine Telephonic Outreach Contact made with patient: No, left message. Katia Fall RN March 15, 2024 10:44 AM Katia Fall RN 03/16/2024 9:43 AM Signed [facility] Telephonic Outreach Provider Action/FYI Pt navigation team - no OV needed; pt asking if she can get scheduled for a mammogram Contacted for: Routine Telephonic Outreach Contact made with patient: Yes Patient identified by name and date of . Discussed care with patient Are you experiencing any new or worsening symptoms you need to talk about today? No Disease Specific Do you check your blood pressure at home? Yes, Enter readings: 130s Do you have new or worsening shortness of breath with activity? No Based on oreman, the following disposition is advised: No symptoms or symptoms present, not severe. Routed to: Navigation Team: Annual Wellness visit - no OV needed; pt asking if she can get scheduled for a mammogram JENA Education Provided this Outreach: No Katia Fall RN March 16, 2024 9:42 AM Jena Douglas MA 03/16/2024 10:01 AM Signed POPULATION HEALTH NAVIGATION OUTREACH Action/FYI Community Monitoring Navigation Pool/CDM Discuss/Due for: Mammogram Pt navigation team - no OV needed; pt asking if she can get scheduled for a mammogram Outcome: 1st attempt - Spoke to patient Scheduled Mammogram - steel estimator completed - offered to switch Follow Up with Dr. Morrison on 08/24/2024 to Medicare Wellness, patient declined Reason for Outreach Community Monitoring/Network Navigator Pools AND Phone Line: CDM Patient Contacted: Spoke to patient/parent/or legal guardian Patient identified by name and : Yes Community Monitoring/Network Navigator Pools AND Phone Line actions taken: Patient scheduled: Specialty Scheduling 03/23/2024 in [facility] with [facility] - Dx: Encounter for screening mammogram for malignant neoplasm of breast [Z12.31 (ICD-10-CM)] 03/29/2024 in [facility] with [facility] - PVD (peripheral vascular disease) (HCC) [I73.9] 03/29/2024 in [facility] with KIRSTEN LEON - 1 year follow up after testing [facility]AM[facility] - 6 month follow up Navigation Signature: Jena Douglas MA March 16, 2024 9:49 AM Jena Douglas MA 03/16/2024 10:01 AM Signed Addended by: JENA DOUGLAS on: 03/16/2024 10:01 AM Modules accepted: Orders Allergies As of Date: 03/15/2024 Noted Allergy Reaction LOVASTATIN 01/03/2015 17 - Myalgia Comments: Severe myalgia, gi upset, [id number] REDUCTASE INHIBIT*03/22/2015 17 - Myalgia CRESTOR (ROSUVASTATIN [...] 12 - Shortness of Breath Date Reviewed: 02/24/2024 Reviewed by: Tamiko Buchanan, CAR SALESMAN.AUDIO VISUAL COORDINATOR - Fully Assessed Reason for Visit: community monitoring outreach [Other] Cmt: Monthly cdm call Primary Visit Diagnosis:Encounter for screening mammogram for malignant neoplasm of breast [Z12.31] Order(s):FLORI SCREENING W ROBERT [[id number]] Order #: [id number] FUTURE Prescriptions as of 03/16/2024 - aspirin, enteric coated (ASPIRIN, ENTERIC COATED) 81 mg EC tablet Take 1 tablet by mouth every other day. - magnesium oxide 300 mg magnesium tab Take 1 tablet by mouth once daily. - ezetimibe (ZETIA) 10 mg tablet Take 1 tablet by mouth once daily. Meds Comments as of 07/20/2023: 07/20/23 Patient reports she does not take any medications, has not filled the cholesterol medication yet. Melissa Le RN 01/20/23 Patient reports no changes to current medications. 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 [facility] 02-24-2024 Instructions Tamiko Buchanan, CAR SALESMAN.AUDIO VISUAL COORDINATOR - 02/24/2024 5:03 PM EDT Screening schedule The following prevention plan is recommended: Shingrix Vaccine(1 of 2) Never done RSV Vaccine(1 - 1-dose 75+ series) Never done WHAT YOU CAN DO TO [...] review all the medicines you take, even pwhu-bru-aaikvxa medicines. As you get older, the way [...] or wearing slippers. For more information, contact: Centers for Disease Control and Prevention www.cdc.gov/injury * This information may not apply if you have certain medical conditions. documented in this encounter [facility] 02-24-2024 Note HNO ID: [id number] Author: TAMIKO BUCHANAN APRN.TOMASA Service: ? Author Type: Nurse Practitioner Type: Progress Notes Filed: 02/24/2024 17:12 Note Text: Dinah Nelson is a 83 year old female here for a Medicare wellness visit. Medicare Health Risk Assessment General Health Very good Exercise: Minutes/Day 20 min Exercise: Days/Week 7 days Alcohol: Daily Use Never Alcohol: Drinks/Day Patient does not drink Alcohol: 6 or more drinks Never Feel off balance No Concerns: Teeth/Dentures No Concerns: Sexual function No Troubled by feelings None of the above Frequency: Eating healthy diet Nearly every day ADLs requiring help None of the above Safety precautions in home/vehicle Yes Smoke, vape, chews tobacco No Difficulty hearing No Difficulty seeing No Current Providers Specialists: I have reviewed specialist-related care of the patient in the medical record. Current care team: Patient Care Team: Bennett Weir MD as PCP - General (Internal Medicine) Katia Fall, RN as Magento Developer Dr. Leon-vascular Outside specialists- [facility] (Dr. Rahman) Medical/Family history review Reviewed and updated problem list, medical/surgical/family/social history, medications, and allergies. Opioid use review Opioid Medications (last 90 days) No data to display Anxiety/Depression screening PHQ-2 Score: 0 Recommendation: no further intervention at this time Cognitive screening Mini Cog Score: 5 Cognitive screening reviewed and No further action needed (score 3-5). Functional Observation Was the patient's Timed Up AND Go test unsteady or >= 12 seconds? No Advance Care Planning Patient was not able to provide a surrogate decision maker or written advance directives Measurements BP 120/72 (BP Site: Left Arm, BP Position: Sitting, BP Cuff Size: Large Adult) Pulse 92 Temp 36.7 ?C (98.1 ?F) (Temporal) Resp 16 Ht 158.1 cm (5' 2.25) Wt 72.9 kg (160 lb 11.5 oz) BMI 29.16 kg/m? Vision Screening: Follows with optometry/ophthalmology Assessment/Plan Medicare annual wellness visit, subsequent (Z00.00) - Counseled on healthy diet and regular exercise - Fall avoidance information provided - Personalized prevention plan provided - Discussed need for and benefit of weight loss. BMI 29.16 kg/(m2) 2. Mixed hyperlipidemia - ICD9: 272.2, ICD10: E78.2 Stable, continue current meds - LIPID PANEL BASIC in 6 months 3. Screening for depression - ICD9: V79.0, ICD10: Z13.31 - DEPRESSION SCREENING Tamiko Buchanan APRN.[facility] 02-24-2024 History of Presen t illness Narrative Images from the original note were not included. Dinah Nelson is a 83 year old female here for a Medicare wellness visit. Medicare Health Risk Assessment General Health Very good Exercise: Minutes/Day 20 min Exercise: Days/Week 7 days Alcohol: Daily Use Never Alcohol: Drinks/Day Patient does not drink Alcohol: 6 or more drinks Never Feel off balance No Concerns: Teeth/Dentures No Concerns: Sexual function No Troubled by feelings None of the above Frequency: Eating healthy diet Nearly every day ADLs requiring help None of the above Safety precautions in home/vehicle Yes Smoke, vape, chews tobacco No Difficulty hearing No Difficulty seeing No Current Providers Specialists: I have reviewed specialist-related care of the patient in the medical record. Current care team: Patient Care Team: Bennett Weir MD as PCP - General (Internal Medicine) Katia Fall RN as Magento Developer Dr. Leon-vascular Outside specialists- [facility] (Dr. Rahman) Medical/Family history review Reviewed and updated problem list, medical/surgical/family/social history, medications, and allergies. Opioid use review Opioid Medications (last 90 days) No data to display Anxiety/Depression screening PHQ-2 Score: 0 Recommendation: no further intervention at this time Cognitive screening Mini Cog Score: 5 Cognitive screening reviewed and No further action needed (score 3-5). Functional Observation Was the patient's Timed Up & Go test unsteady or >= 12 seconds? No Advance Care Planning Patient was not able to provide a surrogate decision maker or written advance directives Measurements BP 120/72 (BP Site: Left Arm, BP Position: Sitting, BP Cuff Size: Large Adult) Pulse 92 Temp 36.7 C (98.1 F) (Temporal) Resp 16 Ht 158.1 cm (5' 2.25) Wt 72.9 kg (160 lb 11.5 oz) BMI 29.16 kg/m Vision Screening: Follows with optometry/ophthalmology Assessment/Plan Medicare annual wellness visit, subsequent (Z00.00) - Counseled on healthy diet and regular exercise - Fall avoidance information provided - Personalized prevention plan provided - Discussed need for and benefit of weight loss. BMI 29.16 kg/(m^2) 2. Mixed hyperlipidemia - ICD9: 272.2, ICD10: E78.2 Stable, continue current meds - LIPID PANEL BASIC in 6 months 3. Screening for depression - ICD9: V79.0, ICD10: Z13.31 - DEPRESSION SCREENING Tamiko Buchanan APRN.AUDIO VISUAL COORDINATOR documented in this encounter [facility] 02-12-2024 Note HNO ID: [id number] Author: KATIA FALL RN Service: ? Author Type: Registered Nurse Type: Progress Notes Filed: 02/12/2024 10:48 Note Text: CDM Telephonic Outreach Provider Action/FYI Pt had temporarily stopped her Zetia as recommended following last outreach call; leg cramps improved; pt restarted the Zetia and also started taking Magnesium Oxide 250mg daily and no longer having leg cramp issues Contacted for: Routine Telephonic Outreach Contact made with patient: Yes Patient identified by name and date of . Discussed care with patient Are you experiencing any new or worsening symptoms you need to talk about today? No Disease Specific Do you check your blood pressure at home? Yes, Enter readings: 129-139 Do you have new or worsening shortness of breath with activity? No Based on oreman, the following disposition is advised: No symptoms or symptoms present, not severe. Routed to: No Action Needed JENA Education Provided this Outreach: No aKtia Fall RN February 12, 2024 10:46 AM [facility] 02-12-2024 History of Presen t illness Narrative CD Telephonic Outreach Provider Action/FYI Pt had temporarily stopped her Zetia as recommended following last outreach call; leg cramps improved; pt restarted the Zetia and also started taking Magnesium Oxide 250mg daily and no longer having leg cramp issues Contacted for: Routine Telephonic Outreach Contact made with patient: Yes Patient identified by name and date of . Discussed care with patient Are you experiencing any new or worsening symptoms you need to talk about today? No Disease Specific Do you check your blood pressure at home? Yes, Enter readings: 129-139 Do you have new or worsening shortness of breath with activity? No Based on oreman, the following disposition is advised: No symptoms or symptoms present, not severe. Routed to: No Action Needed JENA Education Provided this Outreach: No Katia Fall RN February 12, 2024 10:46 AM CD Telephonic Outreach Provider Action/FYI Contacted for: Routine Telephonic Outreach Contact made with patient: No, left message. Katia Fall RN February 11, 2024 3:47 PM documented in this encounter [facility] 02-11-2024 Note HNO ID: [id number] Author: KATIA FALL RN Service: ? Author Type: Registered Nurse Type: Progress Notes Filed: 02/12/2024 10:48 Note Text: CD Telephonic Outreach Provider Action/FYI Contacted for: Routine Telephonic Outreach Contact made with patient: No, left message. Katia Fall RN February 11, 2024 3:47 PM [facility] 02-11-2024 Note Patient Outreach ([facility]) DINAH NELSON ([id number]) 1940 F Date Time Provider Department 02/11[facility]24 [facility] During your visit today, we recorded the following information about you: Katia Fall RN 02/12/2024 10:48 AM Signed [facility] Telephonic Outreach Provider Action/FYI Contacted for: Routine Telephonic Outreach Contact made with patient: No, left message. Katia Fall RN February 11, 2024 3:47 PM Katia Fall RN 02/12/2024 10:48 AM Signed [facility] Telephonic Outreach Provider Action/FYI Pt had temporarily stopped her Zetia as recommended following last outreach call; leg cramps improved; pt restarted the Zetia and also started taking Magnesium Oxide 250mg daily and no longer having leg cramp issues Contacted for: Routine Telephonic Outreach Contact made with patient: Yes Patient identified by name and date of . Discussed care with patient Are you experiencing any new or worsening symptoms you need to talk about today? No Disease Specific Do you check your blood pressure at home? Yes, Enter readings: 129-139 Do you have new or worsening shortness of breath with activity? No Based on oreman, the following disposition is advised: No symptoms or symptoms present, not severe. Routed to: No Action Needed JENA Education Provided this Outreach: No Katia Fall RN February 12, 2024 10:46 AM Allergies As of Date: 02/11/2024 Noted Allergy Reaction LOVASTATIN 01/03/2015 17 - Myalgia Comments: Severe myalgia, gi upset, [id number] REDUCTASE INHIBIT*03/22/2015 17 - Myalgia CRESTOR (ROSUVASTATIN [...] 12 - Shortness of Breath Date Reviewed: 11/30/2023 Reviewed by: Shereen Mota RN - Fully Assessed Reason for Visit: community monitoring outreach [Other] Cmt: Monthly cdm call Prescriptions as of 02/12/2024 - magnesium oxide 300 mg magnesium tab Take 1 tablet by mouth once daily. - ezetimibe (ZETIA) 10 mg tablet Take 1 tablet by mouth once daily. - aspirin, enteric coated (ASPIRIN, ENTERIC COATED) 81 mg EC tablet Take 1 tablet by mouth every other day. - Omeprazole Magnesium (PRILOSEC OTC) 20 mg tablet Take 1 tablet by mouth daily before breakfast. 1/2 hr before meal. Meds Comments as of 07/20/2023: 07/20/23 Patient reports she does not take any medications, has not filled the cholesterol medication yet. Melissa Le RN 01/20/23 Patient reports no changes to current medications. 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] 06/03/2005 02/22/2015 BENIGN NEOPLASM LG BOWEL [D12.6] 06/03/2005 Diverticulosis of colon (without mention of hem*06/03/2005 02/22/2015 Personal history of colonic polyps [Z86.010] 08/13/2009 02/22/2015 Diverticulitis [K57.92] 11/13/2009 04/15/2011 Diverticulosis [K57.90] 04/15/2011 03/24/2016 PMB (postmenopausal bleeding) [N95.0] 06/20/2011 03/24/2016 KOLTON favor benign [[id number]] 06/20/2011 03/24/2016 Hematuria [R31.9] 01/16/2014 02/22/2015 Mixed hyperlipidemia [E78.2] 03/24/2016 Atherosclerosis of arteries [I70.90] 03/24/2016 07/22/2022 Aortic valve stenosis, mild [I35.0] 08/15/2023 Chronic urticaria [L50.8] 03/04/2017 Obesity, Class I, BMI 30-34.9 [E66.9] 09/27/2018 Multiple thyroid nodules [E04.2] 11/08/2019 Essential hypertension [I10] 07/24/2020 PVD (peripheral vascular disease) with claudica*07/27/2020 Raynaud's phenomenon without gangrene [I73.00] 11/27/2020 Anxiety about health [R45.89] 08/30/2021 Polymyalgia rheumatica (HCC) [M35.3] 09/16/2021 07/23/2022 Synovitis of wrist [M65.9] 01/20/2022 07/23/2022 Dysphagia [R13.10] 11/18/2023 Encounter Status:Closed by KATIA FALL on 02/12/24 [facility] 01-18-2024 Note HNO ID: [id number] Author: MAKENZIE LARSON LPN Service: ? Author Type: LICENSED NURSE Type: Progress Notes Filed: 01/18/2024 12:48 Note Text: Patient notified of below recommendation, verbalized understanding. Makenzie Larson LPN [facility] 01-18-2024 History of Presen t illness Narrative Patient notified of below recommendation, verbalized understanding. Makenzie Larson LPN If cramps are really bothersome and still occurring, she can stop ezetimibe for 1 week and see if cramps resolve. If cramps persist it is not from medication. If cramps resolve, restart the medication and see if cramps come back. Then it is from the medication and decisions will need to be made. CD Telephonic Outreach Provider Action/FYI Dr. Weir pt wondering is cholesterol med is causing muscle cramping and spasms. She has not started mag as suggested but is drinking more water and eating bananas. She agreed to start mag today, please advise Contacted for: Routine Telephonic Outreach Contact made with patient: Yes Patient identified by name and date of . Discussed care with patient Are you experiencing any new or worsening symptoms you need to talk about today? No Disease Specific Based on oreman, the following disposition is advised: No symptoms or symptoms present, not severe. Routed to: No Action Needed JENA Education Provided this Outreach: No -patient is wondering if she is having side effects related to cholesterol meds. Having some cramping, muscle spasms-especially noted when she is walking a lot. PCP had told her to start mag but she has not. She has been drinking a lot of water and eating bananas to try to help. Is very busy outside Stacy Mcduffie RN January 14, 2024 documented in this encounter [facility] 01-18-2024 Note HNO ID: [id number] Author: BENNETT WEIR MD Service: ? Author Type: Physician Type: Progress Notes Filed: 01/18/2024 12:48 Note Text: If cramps are really bothersome and still occurring, she can stop ezetimibe for 1 week and see if cramps resolve. If cramps persist it is not from medication. If cramps resolve, restart the medication and see if cramps come back. Then it is from the medication and decisions will need to be made. [facility] 01-14-2024 Note HNO ID: [id number] Author: STACY MCDUFFIE RN Service: ? Author Type: Registered Nurse Type: Progress Notes Filed: 01/18/2024 12:48 Note Text: CDM Telephonic Outreach Provider Action/FYI Dr. Weir pt wondering is cholesterol med is causing muscle cramping and spasms. She has not started mag as suggested but is drinking more water and eating bananas. She agreed to start mag today, please advise Contacted for: Routine Telephonic Outreach Contact made with patient: Yes Patient identified by name and date of . Discussed care with patient Are you experiencing any new or worsening symptoms you need to talk about today? No Disease Specific Based on oreman, the following disposition is advised: No symptoms or symptoms present, not severe. Routed to: No Action Needed JENA Education Provided this Outreach: No -patient is wondering if she is having side effects related to cholesterol meds. Having some cramping, muscle spasms-especially noted when she is walking a lot. PCP had told her to start mag but she has not. She has been drinking a lot of water and eating bananas to try to help. Is very busy outside Stacy Mcduffie RN January 14, 2024 [facility] 01-14-2024 Note Patient Outreach ([facility]) DINAH NELSON ([id number]) 1940 F Date Time Provider Department 01/14/24 STACY MCDUFFIE [facility] During your visit today, we recorded the following information about you: Stacy Mcduffie RN 01/18/2024 12:48 PM Signed [facility] Telephonic Outreach Provider Action/FYI Dr. Weir pt wondering is cholesterol med is causing muscle cramping and spasms. She has not started mag as suggested but is drinking more water and eating bananas. She agreed to start mag today, please advise Contacted for: Routine Telephonic Outreach Contact made with patient: Yes Patient identified by name and date of . Discussed care with patient Are you experiencing any new or worsening symptoms you need to talk about today? No Disease Specific Based on oreman, the following disposition is advised: No symptoms or symptoms present, not severe. Routed to: No Action Needed JENA Education Provided this Outreach: No -patient is wondering if she is having side effects related to cholesterol meds. Having some cramping, muscle spasms-especially noted when she is walking a lot. PCP had told her to start mag but she has not. She has been drinking a lot of water and eating bananas to try to help. Is very busy outside Stacy Mcduffie RN January 14, 2024 Bennett Weir MD 01/18/2024 12:48 PM Signed If cramps are really bothersome and still occurring, she can stop ezetimibe for 1 week and see if cramps resolve. If cramps persist it is not from medication. If cramps resolve, restart the medication and see if cramps come back. Then it is from the medication and decisions will need to be made. Makenzie Larson LPN 01/18/2024 12:48 PM Signed Patient notified of below recommendation, verbalized understanding. Makenzie Larson LPN Allergies As of Date: 01/14/2024 Noted Allergy Reaction LOVASTATIN 01/03/2015 17 - Myalgia Comments: Severe myalgia, gi upset, [id number] REDUCTASE INHIBIT*03/22/2015 17 - Myalgia CRESTOR (ROSUVASTATIN [...] 12 - Shortness of Breath Date Reviewed: 11/30/2023 Reviewed by: Shereen Mota RN - Fully Assessed Reason for Visit: community monitoring outreach [Other] Cmt: CDM outreach telephonic Prescriptions as of 01/18/2024 - magnesium oxide 300 mg magnesium tab Take 1 tablet by mouth once daily. - ezetimibe (ZETIA) 10 mg tablet Take 1 tablet by mouth once daily. - aspirin, enteric coated (ASPIRIN, ENTERIC COATED) 81 mg EC tablet Take 1 tablet by mouth every other day. - Omeprazole Magnesium (PRILOSEC OTC) 20 mg tablet Take 1 tablet by mouth daily before breakfast. 1/2 hr before meal. Meds Comments as of 07/20/2023: 07/20/23 Patient reports she does not take any medications, has not filled the cholesterol medication yet. Melissa Le RN 01/20/23 Patient reports no changes to current medications. 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] 06/03/2005 02/22/2015 BENIGN NEOPLASM LG BOWEL [D12.6] 06/03/2005 Diverticulosis of colon (without mention of hem*06/03/2005 02/22/2015 Personal history of colonic polyps [Z86.010] 08/13/2009 02/22/2015 Diverticulitis [K57.92] 11/13/2009 04/15/2011 Diverticulosis [K57.90] 04/15/2011 03/24/2016 PMB (postmenopausal bleeding) [N95.0] 06/20/2011 03/24/2016 KOLTON favor benign [[id number]] 06/20/2011 03/24/2016 Hematuria [R31.9] 01/16/2014 02/22/2015 Mixed hyperlipidemia [E78.2] 03/24/2016 Atherosclerosis of arteries [I70.90] 03/24/2016 07/22/2022 Aortic valve stenosis, mild [I35.0] 08/15/2023 Chronic urticaria [L50.8] 03/04/2017 Obesity, Class I, BMI 30-34.9 [E66.9] 09/27/2018 Multiple thyroid nodules [E04.2] 11/08/2019 Essential hypertension [I10] 07/24/2020 PVD (peripheral vascular disease) with claudica*07/27/2020 Raynaud's phenomenon without gangrene [I73.00] 11/27/2020 Anxiety about health [R45.89] 08/30/2021 Polymyalgia rheumatica (HCC) [M35.3] 09/16/2021 07/23/2022 Synovitis of wrist [M65.9] 01/20/2022 07/23/2022 Dysphagia [R13.10] 11/18/2023 (more content not included)... [facility] 01-04-2024 Note HNO ID: [id number] Author: STACY MCDUFFIE RN Service: ? Author Type: Registered Nurse Type: Progress Notes Filed: 01/04/2024 13:13 Note Text: CDM Telephonic Outreach Provider Action/FYI Contacted for: Routine Telephonic Outreach Contact made with patient: No, left message. Stacy Mcduffie RN January 04, 2024 1:13 PM [facility] 01-04-2024 History of Presen t illness Narrative [facility] Telephonic Outreach Provider Action/FYI Contacted for: Routine Telephonic Outreach Contact made with patient: No, left message. Stacy Mcduffie RN January 04, 2024 1:13 PM documented in this encounter [facility] 01-04-2024 Note Patient Outreach ([facility]) DINAH NELSON ([id number]) 1940 F Date Time Provider Department 01/04/24 STACY MCDUFFIE [facility] During your visit today, we recorded the following information about you: Stacy Mcduffie RN 01/04/2024 1:13 PM Signed [facility] Telephonic Outreach Provider Action/FYI Contacted for: Routine Telephonic Outreach Contact made with patient: No, left message. Stacy Mcduffie RN January 04, 2024 1:13 PM Allergies As of Date: 01/04/2024 Noted Allergy Reaction LOVASTATIN 01/03/2015 17 - Myalgia Comments: Severe myalgia, gi upset, [id number] REDUCTASE INHIBIT*03/22/2015 17 - Myalgia CRESTOR (ROSUVASTATIN [...] 12 - Shortness of Breath Date Reviewed: 11/30/2023 Reviewed by: Shereen Mota RN - Fully Assessed Reason for Visit: community monitoring outreach [Other] Cmt: CDM outreach telephonic Prescriptions as of 01/04/2024 - magnesium oxide 300 mg magnesium tab Take 1 tablet by mouth once daily. - ezetimibe (ZETIA) 10 mg tablet Take 1 tablet by mouth once daily. - aspirin, enteric coated (ASPIRIN, ENTERIC COATED) 81 mg EC tablet Take 1 tablet by mouth every other day. - Omeprazole Magnesium (PRILOSEC OTC) 20 mg tablet Take 1 tablet by mouth daily before breakfast. 1/2 hr before meal. Meds Comments as of 07/20/2023: 07/20/23 Patient reports she does not take any medications, has not filled the cholesterol medication yet. Melissa Le RN 01/20/23 Patient reports no changes to current medications. 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] 06/03/2005 02/22/2015 BENIGN NEOPLASM LG BOWEL [D12.6] 06/03/2005 Diverticulosis of colon (without mention of hem*06/03/2005 02/22/2015 Personal history of colonic polyps [Z86.010] 08/13/2009 02/22/2015 Diverticulitis [K57.92] 11/13/2009 04/15/2011 Diverticulosis [K57.90] 04/15/2011 03/24/2016 PMB (postmenopausal bleeding) [N95.0] 06/20/2011 03/24/2016 KOLTON favor benign [[id number]] 06/20/2011 03/24/2016 Hematuria [R31.9] 01/16/2014 02/22/2015 Mixed hyperlipidemia [E78.2] 03/24/2016 Atherosclerosis of arteries [I70.90] 03/24/2016 07/22/2022 Aortic valve stenosis, mild [I35.0] 08/15/2023 Chronic urticaria [L50.8] 03/04/2017 Obesity, Class I, BMI 30-34.9 [E66.9] 09/27/2018 Multiple thyroid nodules [E04.2] 11/08/2019 Essential hypertension [I10] 07/24/2020 PVD (peripheral vascular disease) with claudica*07/27/2020 Raynaud's phenomenon without gangrene [I73.00] 11/27/2020 Anxiety about health [R45.89] 08/30/2021 Polymyalgia rheumatica (HCC) [M35.3] 09/16/2021 07/23/2022 Synovitis of wrist [M65.9] 01/20/2022 07/23/2022 Dysphagia [R13.10] 11/18/2023 Encounter Status:Closed by STACY MCDUFFIE on 01/04/24 [facility] 12-04-2023 History of Presen t illness Narrative [facility] Telephonic Outreach Provider Action/FYI monthly Contacted for: [...] of breath with activity? No Based on oreman, the following disposition is advised: No symptoms or symptoms present, not severe. Routed to: No Action Needed JENA Education Provided this Outreach: No -pt now taking prilosec to help with dysphagia -has not had any more reoccurrences with vision loss Stacy Mcduffie RN December 04, 2023 documented in this encounter [facility] 11-30-2023 History of Presen t illness Narrative FOLLOW UP VISIT - ENDOSCOPY Dinah Nelson 1940 [id number] REFERRING PHYSICIAN: Silvino Mclaughlin III [address] [facility] [address] Dinah Nelson is a patient I am following for dysphagia. Dr. Mclaughlin performed upper endoscopy on 11/18/23. The patient was found to have Impression: - Z-line regular, 35 cm from the incisors. Biopsied. - Gastritis. Biopsied. - Normal examined duodenum. Biopsied. Pathology demonstrated: FINAL DIAGNOSIS A. Duodenum, biopsy: -Duodenal mucosa with intact villous architecture and no significant histologic abnormality -Negative for intraepithelial lymphocytosis B. Stomach, antrum, biopsy: -Portions of oxyntic type gastric mucosa with no significant histologic abnormality -Negative for Helicobacter pylori organisms on routine staining -Negative for intestinal metaplasia or dysplasia C. Esophagus, distal, biopsy: -Reactive squamous epithelium with intraepithelial eosinophils (up to 10 eosinophils per high-power field) -Focal detached columnar epithelium, negative for intestinal metaplasia D. Esophagus, mid, biopsy: -Portions of squamous epithelium with no significant histologic abnormality -Negative for intraepithelial eosinophils The patient notes denies complaints since the procedure. Dinah refers that her intermittent dysphagia was unpredictable and she hasn't had any episodes since the ER visit on 08/14/2023. She refers Dr. Weir started her on Prilosec 20mg daily at his visit in August but she didn't start it. VITALS: There were no vitals taken for this visit. General: patient is alert, cooperative, pleasant and in no acute distress On examination, the abdomen is benign. Assessment ASSESSMENT/PLAN: 1. Dysphagia, unspecified type - ICD9: 787.20, ICD10: R13.10 - Start Prilosec 20mg PO daily The operative findings and pathology report were reviewed with the patient, and the patient has had the opportunity to ask questions and have questions answered. If the patient notes any problems or changes in bowel function, the patient should contact me immediately. Otherwise I recommend follow up endoscopy PRN. HM updated. Discussed treatment plan and patient voices understanding. Patient's questions answered appropriately. Return to the office PRN Erma Koroma APRN.TOMASA documented in this encounter [facility] 11-24-2023 History of Presen t illness Narrative This note was created using [employer]. Subjective Dinah Nelson is a 83 year old female here with daughter. She experienced flashing lights in her left eye this morning, followed by nausea, general weakness, and shakiness lasting several minutes. This was concerning them again about vertebrobasilar insufficiency which was raised by Dr. Pham during her eye exam. She was admitted last month for amaurosis fugax. He suggested primary care order CT angiogram of neck due to her allergies to contrast. We reviewed last visit that MRA of the neck 3 years ago was negative, but she was interested in having this rechecked due to ongoing symptoms. She stopped driving due to the event last month. Review of Systems Constitutional: Negative. HENT: Negative. Eyes: Negative for pain and redness. Respiratory: Negative for shortness of breath. Cardiovascular: Negative for chest pain and palpitations. Neurological: Negative for facial asymmetry, speech difficulty and headaches. ACTIVE PROBLEM LIST Benign Neoplasm of Colon Mixed Hyperlipidemia Aortic Valve Stenosis, Mild Chronic Urticaria Obesity, Class I, Bmi 30-34.9 Multiple Thyroid Nodules Essential Hypertension Pvd (Peripheral Vascular Disease) With Claudication (Hcc) Raynaud's Phenomenon Without Gangrene Anxiety About Health Dysphagia Social History Tobacco Use Smoking status: Never Smokeless tobacco: Never Vaping Use Vaping Use: Never used Substance Use Topics Alcohol use: No Drug use: No Current Outpatient Medications Medication Sig ezetimibe (ZETIA) 10 mg tablet Take 1 tablet by mouth once daily. aspirin, enteric coated (ASPIRIN, ENTERIC COATED) 81 mg EC tablet Take 1 tablet by mouth every other day. Omeprazole Magnesium (PRILOSEC OTC) 20 mg tablet Take 1 tablet by mouth daily before breakfast. 1/2 hr before meal. (Patient not taking: Reported on 10/08/2023) No current facility-administered medications for this visit. Objective BP 126/76 (BP Site: Left Arm, BP Position: Sitting, BP Cuff Size: Large Adult) Pulse 86 Temp 36.9 C (98.4 F) (Temporal) Wt 71.2 kg (157 lb) BMI 28.72 kg/m Physical Exam Constitutional: Appearance: She is not ill-appearing. HENT: Head: Atraumatic. Eyes: Extraocular Movements: Extraocular movements intact. Conjunctiva/sclera: Conjunctivae normal. Funduscopic exam: Left eye: No hemorrhage. Neurological: General: No focal deficit present. Mental Status: She is alert. Cranial Nerves: No cranial nerve deficit. Sensory: No sensory deficit. Motor: No weakness. Comments: Ambulatory with cane. 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 - MAGNESIUM 300 MG ( MAGNESIUM OXIDE) TABLET 2. Mixed hyperlipidemia - ICD9: 272.2, ICD10: E78.2 - Improving control - Continue current medications - BASIC METABOLIC PANEL - LIPID PANEL BASIC 3. Essential hypertension - ICD9: 401.9, ICD10: I10 - Controlled without medication. - COMPLETE BLOOD COUNT 4. Amaurosis fugax - ICD9: 362.34, ICD10: G45.3 Concern about VBI. Patient allergic to contrast. Further recommendations will depend on results. - MRA CAROTID WO IVCON Bennett Weir MD documented in this encounter [facility] 11-18-2023 Note Formatting of this n ote might be different from the original. The patient received a copy of EGD discharge instructions that contain information for how to contact the physician who performed the procedure and when to seek medical care. [facility] 11-18-2023 Miscellaneous Notes The patient received a copy of EGD discharge instructions that contain information for how to contact the physician who performed the procedure and when to seek medical care. documented in this encounter [facility] 11-18-2023 Nurse Note Patient received in phase II via cart in left lateral position, eyes closed, open to verbal stimuli, skin warm and dry, respirations regular and unlabored, denies pain or nausea, resting comfortably on left side. Daughter brought to bedside to speak to Dr Mclaughlin about procedure. Resting comfortably on left side. [facility] 11-18-2023 Nurse Note Patient received in phase II via cart in left lateral position, eyes closed, open to verbal stimuli, skin warm and dry, respirations regular and unlabored, denies pain or nausea, resting comfortably on left side. Daughter brought to bedside to speak to Dr Mclaughlin about procedure. Resting comfortably on left side. documented in this encounter [facility] 11-18-2023 History and physical note HISTORY AND PHYSICAL Dinah Nelson 1940 REFERRING PHYSICIAN: Bennett Weir MD CHIEF COMPLAINT: Consult HPI: Dinah Nelson is a 83 year old female here with her daughter. She was in the ER for dysphagia 08/13. She was advised to have endoscopy. She was here for referral with our surgeons. She's had no recurrence of dizziness or syncope. Her echo showed stable findings. She saw ENT, and no new recommendations were made. ENT report was requested. She was taking ezetimibe, and tolerating the medication. The patient is being seen by me today at the request of Dr. Bennett Weir MD for my opinion and advice regarding Dysphagia, unspecified type. 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 Omeprazole Magnesium (PRILOSEC OTC) 20 mg tablet Take 1 tablet by mouth daily before breakfast. 1/2 hr before meal. (Patient not taking: Reported on 10/08/2023) No current facility-administered medications for this visit. ALLERGIES: Lovastatin, Lktljec-Pku-Sig Reductase Inhibitors, Crestor [Rosuvastatin Calcium], Lipitor [Atorvastatin Calcium], Bactrim [Sulfamethoxazole], Cipro [Ciprofloxacin], Fenofibrate, Ivp Dye [Iodine], Keflex [Cephalexin], and Penicillins PERSONAL HISTORY: SOCIAL HISTORY Social History Tobacco Use Smoking status: Never Smokeless tobacco: Never Vaping Use Vaping Use: Never used Substance Use Topics Alcohol use: No Drug use: No FAMILY HISTORY: FAMILY HISTORY FAMILY HISTORY Problem Relation Age of Onset Heart Mother Stroke Mother Heart Father heart attack REVIEW OF SYMPTOMS: The review of systems data was entered by the nurse and reviewed by me There are no exam notes on file for this visit. PHYSICAL EXAMINATION: General: The patient is 83 year old female, well nourished, well hydrated in no acute distress. The patient is oriented to time, place, and person. VITALS: Blood pressure 128/50, pulse 92, temperature 36.1 C (97 F), height 157.5 cm (5' 2), weight 73.2 kg (161 lb 6.4 oz), SpO2 95%. Body mass index is 29.52 kg/m . HEENT: Normal cephalic, ataumatic, pupils are equally round, sclera are anicteric, mucous membranes are moist, oropharynx is clear. Neck has no masses, asymmetry or lymphadenopathy. Thyroid is unremarkable. Respiratory: Clear to auscultation and percussion. Normal respiratory excursion and pattern. Cardiac: Examination is regular rate and rhythm. Abdominal exam: Soft, nontender, with no palpable masses. No hepatosplenomegaly. No palpable hernias. Rectal exam: exam deferred Extremities: no clubbing, cyanosis or edema. No adenopathy. Other: LABORATORY VALUES: As Noted RADIOLOGIC STUDIES: As Noted Assessment IMPRESSION: Dysphagia, unspecified type PLAN: I plan to perform upper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 Bennett Weir MD documented in this encounter [facility] 08-24-2023 History of Presen t illness Narrative CDM Telephonic Outreach Provider Action/FYI monthly Contacted for: Routine Telephonic Outreach Contact made with patient: Yes Patient identified by name and date of . Discussed care with patient Are you experiencing any new or worsening symptoms you need to talk about today? No Disease Specific Do you have new or worsening shortness of breath with activity? No Based on oreman, the following disposition is advised: No symptoms or symptoms present, not severe. Routed to: No Action Needed JENA Education Provided this Outreach: No -08/13 was having some issues went to ER had issues swallowing. [place] like things were not going down vomiting a lot of mucous -still working with ENT to manage ears and seems like things are improving -BP has varied and really feels based on stress but now things are better overall Stacy Mcduffie RN August 24, 2023 documented in this encounter [facility] 08-14-2023 Miscellaneous Notes Reason for Call: daughter calling, pt vomiting and unable to swallow, EMS was there and left was feeling better, symptoms are continuing again, denies difficulty breathing. Outcome: advised to go to ED now, agreeable. Reason for Disposition SEVERE difficulty swallowing (e.g., drooling or spitting, can't swallow water) Protocols used: Swallowing [id number] documented in this encounter [facility] 07-24-2023 History of Presen t illness Narrative [facility] Telephonic Outreach Provider Action/FYI monthly Contacted for: Routine Telephonic Outreach Contact made with patient: Yes Patient identified by name and date of . Discussed care with patient Are you experiencing any new or worsening symptoms you need to talk about today? No Disease Specific Do you check your blood pressure at home? Yes, Enter readings: sbp 125/130s Based on oreman, the following disposition is advised: No symptoms or symptoms present, not severe. Routed to: No Action Needed JENA Education Provided this Outreach: No -has been having some dizziness issues she went to PCP they did clean ear but were unable to get everything so she has follow up with ENT. Feels much better though since all of this being done not really having these episodes. -denies any concerns at this time Stacy Mcduffie RN July 24, 2023 documented in this encounter [facility] 07-22-2023 History of Presen t illness Narrative Radiology Service Progress Note PATIENT NAME: Dinah Nelson DATE OF SERVICE: July 22, 2023 TIME: 12:31 PM PATIENT IDENTITY VERIFICATION COMPLETED USING TWO [...] falls during this visit? Offered Assistance with Transfers/Clothing and Instructed Patient to Remain Seated (Not on Exam Table) Until Exam PATIENT GENDER DATA: Female. status: : No status: NO. PATIENT RELEVANT IMPLANT DATA REVIEWED: Not Applicable PATIENT PRESENTS WITH AN IMPLANTABLE OR ATTACHED MANUFACTURER'S SERVICE REPRESENTATIVE: No RADIOLOGY DEPARTMENT: General X-ray: Exam(s) Completed: Lower Extremity X-Ray(s): Knee, AP / Lat / Tunne / Merchant Right and Wt. Bearing PERIPHERAL IV DATA: Not applicable SIGNED BY: RT Jimi(R) July 22, 2023 12:31 PM documented in this encounter [facility] 07-22-2023 History of Presen t illness Narrative This note was created using [employer]. Subjective Patient presents with: ER F/U Dinah Ashlee Leslie had 2 acute episodes of paroxysmal, transient dizziness this past week. She had these symptoms a few years ago, with no recurrence till now. Symptoms had no associated symptoms, no positional triggers, and last several seconds. She described this as a wave going thru the brain, then disappearing. She also felt like passing out. I saw her for right knee pain a few months ago, and this was not much better. Review of Systems Constitutional: Negative for appetite change, fatigue, fever and unexpected weight change. HENT: Positive for hearing loss. Negative for ear pain, sore throat and tinnitus. Eyes: Negative for visual disturbance. Respiratory: Negative for shortness of breath. Cardiovascular: Negative for chest pain and palpitations. Gastrointestinal: Negative for diarrhea, nausea and vomiting. Neurological: Negative for tremors, seizures, syncope, facial asymmetry, speech difficulty, weakness, numbness and headaches. ACTIVE PROBLEM LIST Benign Neoplasm of Colon Mixed Hyperlipidemia Aortic Valve Sclerosis Chronic Urticaria Obesity, Class I, Bmi 30-34.9 Multiple Thyroid Nodules Essential Hypertension Pvd (Peripheral Vascular Disease) With Claudication (Hcc) Raynaud's Phenomenon Without Gangrene Anxiety About Health Social History Tobacco Use Smoking status: Never Smokeless tobacco: Never Vaping Use Vaping Use: Never used Substance Use Topics Alcohol use: No Drug use: No Current Outpatient Medications Medication Sig ezetimibe (ZETIA) 10 mg tablet Take 1 tablet by mouth once daily. (Patient not taking: Reported on 07/22/2023) No current facility-administered medications for this visit. Objective BP 116/68 (BP Site: Left Arm, BP Position: Supine, BP Cuff Size: Large Adult) Pulse 87 Temp 37 C (98.6 F) (Temporal) Wt 71.2 kg (156 lb 14.4 oz) BMI 28.70 kg/m Physical Exam Constitutional: General: She is not in acute distress. HENT: Head: Normocephalic. Right Ear: External ear normal. There is impacted cerumen. Left Ear: Tympanic membrane and external ear normal. There is impacted cerumen. Eyes: Extraocular Movements: Extraocular movements intact. Conjunctiva/sclera: Conjunctivae normal. Neck: Vascular: No carotid bruit. Cardiovascular: Heart sounds: S1 normal and S2 normal. Murmur heard. Systolic murmur is present with a grade of 1/6. No gallop. Comments: RUBIN at upper LSB Pulmonary: Effort: No respiratory distress. Breath sounds: No wheezing or rales. Musculoskeletal: Cervical back: No tenderness. Right knee: Swelling present. Normal range of motion. Tenderness present over the medial joint line. Right lower leg: No edema. Left lower leg: No edema. Neurological: General: No focal deficit present. Mental Status: She is alert. ER report reviewed. Assessment and Plan 1. Dizziness - ICD9: 780.4, ICD10: R42 (primary diagnosis) Etiology not clear. - ECHO - PERFLUTREN LIPID MICROSPHERES 1.1 MG/ML INJECTION IN NS 10 ML - SODIUM CHLORIDE 0.9 % (FLUSH) INJECTION SYRINGE - CONSULT TO ENT 2. Near syncope - ICD9: 780.2, ICD10: R55 - ECHO - PERFLUTREN LIPID MICROSPHERES 1.1 MG/ML INJECTION IN NS 10 ML - SODIUM CHLORIDE 0.9 % (FLUSH) INJECTION SYRINGE 3. Impacted cerumen of both ears - ICD9: 380.4, ICD10: H61.23 Successfully lavaged left ear, but not right. - AMBULATORY EAR LAVAGE/IRRIGATION - CONSULT TO ENT 4. Mixed hyperlipidemia - ICD9: 272.2, ICD10: E78.2 - Improving control - Continue current medications - Counseled on healthy diet and regular exercise - EZETIMIBE 10 MG TABLET 5. Aortic valve sclerosis - ICD9: 424.1, ICD10: I35.8 See #2. 6. Acute pain of right knee - ICD9: 719.46, ICD10: M25.561 - XR KNEE GENERAL 4V AP BOTH/PA BOTH/LAT/MERC RIGHT - Consider PT if no significant abnormality. Bennett Weir MD documented in this encounter [facility] 07-20-2023 Discharge summary Note Date/Time July 20, 2023 2:03pm [facility] Medical Records Department [address] [place] [address] Emergency Department Summary 07/20/23 MR#: [id number] Acct: [id number] Name: DINAH NELSON Rep #:[id number] : 1940 83 From: Jesica LUQUE PCP: Dr. Bennett Weir MD Status:R EG ER Location: ED HPI <REBEL Cornejo - Last Filed: 07/20/23 15:16> History of Present Illness Chief Complaint: Dizziness Narrative Narrative: 83-year-old female presents with lightheadedness. She has had this issue intermittently for several years but over the last 2 days it seems more frequent. It can occur with sitting or standing. She gets a wave of lightheadedness that passes over her. If she is walking she has to hold onto things. She has no vision changes, headache, chest pain or shortness of breath,nausea vomiting or abdominal pain. She denies syncope or falling. She takes nomedications. She states her doctor just called in [facility] for her cholesterol butshe has not started it yet. She has had normal p.o. intake, normal bladder and bowel movements, no melena or hematochezia. [facility] <REBEL Cornejo - Last Filed: 07/20/23 15:16> [facility] Medical History (Updated 07/20/23 @ 15:[address] Rajan Hubbard MD) Anxiety Carotid stenosis Fibromyalgia GERD (gastroesophageal reflux disease) Hyperlipidemia Hypertension Home Medications ondansetron 4 mg disintegrating tablet 4 mg PO Q8H PRN nausea and vomiting #10 tabs 10/07/21 [Rx Last Taken Unknown] prednisone 10 mg tablet 10 mg PO DAILY 10/07/21 [History Last Taken Unknown] esomeprazole magnesium 20 mg capsule,delayed release (Nexium) 20 mg PO DAILY #20caps 08/04/22 [Rx Last Taken Unknown] Allergy/AdvReac Type Severity Reaction Status Date / Time iodine Allergy Shortness Verified 08/04/22 16:52 of breath Yccuudm-YJR-IvP Reductase Allergy Rash Verified 08/04/22 16:52 Inhibitor [Czopzef-Kqt-Bsm Reductase Inhibitor] fenofibrate [From Tricor] AdvReac Other Verified 08/04/22 16:52 Family History (Updated 11/21/22 @ 23:[address] Vandana Bates MD) Mother Heart disease Father Heart disease Surgical History (Updated 11/21/22 @ 23:[address] Vandana Bates MD) S/P partial resection of colon Social History (Updated 11/21/22 @ 23:[address] Vandana Bates MD) household members: none Smoking Status: Never smoker alcohol intake: never substance use type: does not use ROS <REBEL Cornejo - Last Filed: 07/20/23 15:16> ROS ED ROS Narrative Constitutional: Negative for fever, chills, malaise. CVS: Negative for palpitations, chest pain, syncope. Respiratory: Negative for shortness of breath, cough. GI: Negative for abdominal pain, nausea, vomiting, diarrhea, melena, hematochezia. : Negative for dysuria. Neuro: Negative for headache. EXAM <REBEL Cornejo - Last Filed: 07/20/23 15:16> Physical Exam Narrative Exam Narrative: CONST: Patient sitting in no acute distress. EYES: Normal inspection. PERRL, EOMI, no nystagmus. NECK: Normal inspection. RESP: No respiratory distress, CTAB. CVS: Regular rate and rhythm, no murmur, no gallop. ABD: Soft and nontender, no guarding or rebound, nondistended. SKIN: Color normal, no rash, warm, dry, intact. EXTREMITIES: Normal appearance, no pedal edema. NEURO: Oriented x4. Face symmetric, cranial nerves intact, normal finger-nose and wefu-ha-ybji. PSYCH: Normal affect. Const Vital Signs: 07/20/23 13:02 07/20/23 13:48 07/20/23 15:14 Temperature 97.8 F 98.1 F Temperature Source Temporal Pulse Rate 94 77 Pulse Rate [Lying] 84 Pulse Rate [Sitting (for 1 minute prior to obtaining)] 87 Pulse Rate [Standing (for 1 minute prior to obtaining)] 91 Respiratory Rate 16 16 Blood Pressure 161/76 H 159/56 H Blood Pressure [Lying] 153/65 H Blood Pressure [Sitting (for 1 minute prior to obtaining)] 149/85 H Blood Pressure [Standing (for 1 minute prior to obtaining)] 173/67 H Blood Pressure Mean 104 90 Blood Pressure Mean [Lying] 94 Blood Pressure Mean [Sitting (for 1 minute prior to obtaining)] 106 Blood Pressure Mean [Standing (for 1 minute prior to obtaining)] 102 Pulse Ox 100 99 Oxygen Delivery Method Room Air <Dr. Rajan Hubbard MD - Last Filed: 07/20/23 15:00> Physical Exam Const Vital Signs: 07/20/23 13:02 07/20/23 13:48 07/20/23 15:14 Temperature 97.8 F 98.1 F Temperature Source Temporal Pulse Rate 94 77 Pulse Rate [Lying] 84 Pulse Rate [Sitting (for 1 minute prior to obtaining)] 87 Pulse Rate [Standing (for 1 minute prior to obtaining)] 91 Respiratory Rate 16 16 Blood Pressure 161/76 H 159/56 H Blood Pressure [Lying] 153/65 H Blood Pressure [Sitting (for 1 minute prior to obtaining)] 149/85 H Blood Pressure [Standing (for 1 minute prior to obtaining)] 173/67 H Blood Pressure Mean 104 90 Blood Pressure Mean [Lying] 94 Blood Pressure Mean [Sitting (for 1 minute prior to obtaining)] 106 Blood Pressure Mean [Standing (for 1 minute prior to obtaining)] 102 Pulse Ox 100 99 Oxygen Delivery Method Room Air MDM <REBEL Cornejo - Last Filed: 07/20/23 15:16> [facility] [place] [facility] MDM Narrative Medical decision making narrative: History gathered from: Patient and daughter Differential: Orthostatic hypotension, anemia, electrolyte abnormality, cardiac arrhythmia Patient complains of chronic episodes of lightheadedness increasing in frequencyover the last 2 days. She has no associated symptoms. She has not had any syncopal episodes. She appears well and nontoxic. BP is 161/76 with otherwise normal vital signs. She is not on any medications. Exam is unremarkable; no focal neurological deficits. CBC and BMP are unremarkable. UA negative. EKG is normal sinus rhythm and troponin is negative. CXR shows no acute process. Orthostatic vital signs are negative and actually went up. Patient is able to ambulate and will be discharged home with outpatient follow-up. I have personally performed a face to face assessment of the patient and have reviewed the CHUCK Note. I performed a substantive portion of the visit including all aspects of the following. My metcalf findings include: History is 83-year-old female for years has had these episodes of lightheadedness that come on and off very quickly lasting generally seconds. These seem more frequent recently. Denies any history of stroke or TIA. No recent head trauma. She has a known meningioma. She denies any chest pain, headache, nausea vomiting or diarrhea nor melena. No recent fever. Currently she is back to her baseline. She had an episode earlier today. Exam is [well-appearing 83-year-old female. Vital signs stable afebrile. Pulse ox 9% room air no signs hypoxia. HEENT exam normal. Pupils round and left eye light. No facial droop. Normal speech. Neck nontender no lymphadenopathy. 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 It is nontender to been there for years. Lungs clear to auscultation bilaterally. Heart regular rhythm no murmur rate about 90. Chest wall nontender. Abdomen soft nontender. Moving all 4 extremities. 5 out of 5 endorsement clerk strength. Dorsi plantarflexion intact. Neurologically she is awake and alert with no focal motor deficits. NIH score is normal.] Medical Decision Making [ Exam labs and chest x-ray and EKG were all normal. and patient will be discharged home with outpatient follow-up.] Other additions or changes: [None] Lab Data Attestation: I reviewed the patient's lab results. Labs: Laboratory Results - last 24 hr 07/20/23 07/20/23 13:37 14:02 WBC 8.4 RBC 4.37 Hgb 13.9 Hct 41.3 MCV 94.5 MCH 31.8 MCHC 33.7 RDW Std Deviation 47.7 H RDW Coeff of Alex 13.7 Plt Count 211 MPV 9.6 Immature Gran % (Auto) 0.700 Neut % (Auto) 62.3 Lymph % (Auto) 28.3 [place] % (Auto) 6.9 Eos % (Auto) 1.2 Baso % (Auto) 0.6 Absolute Neuts (auto) 5.3 Absolute Lymphs (auto) 2.38 Nucleated RBC % 0 Sodium 139 Potassium 3.8 Chloride 111 H Carbon Dioxide 26.0 Anion Gap 2 L BUN 17 Creatinine 0.65 Estim Creat Clear Calc 50.00 Est GFR (MDRD) Af Amer 112 Est GFR (MDRD) Non-Af 92 BUN/Creatinine Ratio 26.2 H Glucose 118 H Calcium 9.2 Troponin I High Sens 8 Urine Color Yellow Urine Clarity Sl. Cloudy Urine pH 7.0 Ur Specific [place] 1.005 Urine Protein Negative Urine Glucose (UA) Normal Urine Ketones Negative Urine Occult Blood 50 H Urine Nitrite Negative Urine Bilirubin Negative Urine Urobilinogen Normal Ur Leukocyte Esterase Negative Urine RBC 0-5 SEEN Urine WBC 0 SEEN Ur Squamous Epith Cells 0 SEEN Urine Bacteria 0 SEEN Urine Mucus 0 SEEN Radiography Diagnostic Testing: Clinical Impression(s) from Imaging Studies Chest X-Ray 07/20/23 14:11 IMPRESSION: Cardiomegaly with mild hyperinflation and no acute or active cardiopulmonary disease. Electronically Signed: Timmy Cross MD at 14:20 EST , ED attending interpretation of 1-view chest x-ray shows normal heart size, no acute infiltrate, edema, or effusion. EKG Initial EKG: Attestation: I personally reviewed and interpreted this EKG as follows: Interpretation: Sinus Rhythm and No Acute Injury Pattern Comments: Normal sinus rhythm at 80 bpm No acute ischemic changes <Dr. Rajan Hubbard MD - Last Filed: 07/20/23 15:00> [facility] [place] [facility] MDM Narrative Medical decision making narrative: History gathered from: Patient and daughter Patient complains of chronic episodes of lightheadedness increasing in frequency over the last 2 days. She has no associated symptoms. She has not had any syncopal episodes. She appears well and nontoxic. BP is 161/76 with otherwise normal vital signs. She is not on any medications. Exam is unremarkable; no focal neurological deficits. CBC and BMP are unremarkable. EKG is normal sinus rhythm and troponin is negative. CXR shows no acute process. Orthostatic vital signs are negative and actually went up. I have personally performed a face to face assessment of the patient and have reviewed the CHUCK Note. I performed a substantive portion of the visit including all aspects of the following. My metcalf findings include: History is 83-year-old female for years has had these episodes of lightheadedness that come on and off very quickly lasting generally seconds. These seem more frequent recently. Denies any history of stroke or TIA. No recent head trauma. She has a known meningioma. She denies any chest pain, headache, nausea vomiting or diarrhea nor melena. No recent fever. Currently she is back to her baseline. She had an episode earlier today. Exam is [well-appearing 83-year-old female. Vital signs stable afebrile. Pulse ox 9% room air no signs hypoxia. HEENT exam normal. Pupils round and left eye light. No facial droop. Normal speech. Neck nontender no lymphadenopathy. 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 It is nontender to been there for years. Lungs clear to auscultation bilaterally. Heart regular rhythm no murmur rate about 90. Chest wall nontender. Abdomen soft nontender. Moving all 4 extremities. 5 out of 5 endorsement clerk strength. Dorsi plantarflexion intact. Neurologically she is awake and alert with no focal motor deficits. NIH score is normal.] Medical Decision Making [ Exam labs and chest x-ray and EKG were all normal. and patient will be discharged home with outpatient follow-up.] Other additions or changes: [None] History & Record Review Discussion w/independent historian: Patient Additional record(s) reviewed:: Prior inpatient record, Prior outpatient record, Prior ED visit and Prior labs Lab Data Lab results narrative: CBC normal. Chemistries normal. Gap 2. Normal BUN and creatinine. Glucose 118. Troponin normal at 8. UA normal. Chest x-ray normal. Labs: Laboratory Results - last 24 hr 07/20/23 07/20/23 13:37 14:02 WBC 8.4 RBC 4.37 Hgb 13.9 Hct 41.3 MCV 94.5 MCH 31.8 MCHC 33.7 RDW Std Deviation 47.7 H RDW Coeff of Alex 13.7 Plt Count 211 MPV 9.6 Immature Gran % (Auto) 0.700 Neut % (Auto) 62.3 Lymph % (Auto) 28.3 [place] % (Auto) 6.9 Eos % (Auto) 1.2 Baso % (Auto) 0.6 Absolute Neuts (auto) 5.3 Absolute Lymphs (auto) 2.38 Nucleated RBC % 0 Sodium 139 Potassium 3.8 Chloride 111 H Carbon Dioxide 26.0 Anion Gap 2 L BUN 17 Creatinine 0.65 Estim Creat Clear Calc 50.00 Est GFR (MDRD) Af Amer 112 Est GFR (MDRD) Non-Af 92 BUN/Creatinine Ratio 26.2 H Glucose 118 H Calcium 9.2 Troponin I High Sens 8 Urine Color Yellow Urine Clarity Sl. Cloudy Urine pH 7.0 Ur Specific [place] 1.005 Urine Protein Negative Urine Glucose (UA) Normal Urine Ketones Negative Urine Occult Blood 50 H Urine Nitrite Negative Urine Bilirubin Negative Urine Urobilinogen Normal Ur Leukocyte Esterase Negative Urine RBC 0-5 SEEN Urine WBC 0 SEEN Ur Squamous Epith Cells 0 SEEN Urine Bacteria 0 SEEN Urine Mucus 0 SEEN Radiography Chest X-Ray - ED: 1 View, Read by ED Physician, Read by Radiologist, Heart, Lungs, Mediastinum, Bony Structures, No Acute Disease and Chronic Changes Diagnostic Testing: Clinical Impression(s) from Imaging Studies Chest X-Ray 07/20/23 14:11 IMPRESSION: Cardiomegaly with mild hyperinflation and no acute or active cardiopulmonary disease. Electronically Signed: Timmy Cross MD at 14:20 EST Reading Location ID and State: [address] [place] [address] , Service support , Rhythm Strip Rhythm Strip: Sinus Rhythm Rate: 80 Ectopy: None Discharge Plan Triage Chief Complaint: Dizziness ED Midlevel Provider: Jesica Mitchell ED Provider: Rajan Hubbard Dx/Rx/DC Orders Clinical Impression: Episodic lightheadedness Instructions: ED Dizziness, Uncertain Cause Prescriptions: No Action prednisone 10 mg Tablet 10 mg PO DAILY ondansetron 4 mg tablet,disintegrating 4 mg PO Q8H PRN (Reason: nausea and vomiting) Qty: 10 0RF esomeprazole magnesium [Nexium] 20 mg capsule,delayed release(DR/EC) 20 mg PO DAILY Qty: 20 0RF Primary Care Provider: Bennett Weir Referrals: Bennett Weir MD [Primary Care Provider] - 3-5 Days Activity Restrictions/Additional Instructions: Your labs, chest x-ray, and EKG were all unremarkable. Your exam is normal. We do not have a specific cause for your symptoms. You do not need to be admitted to the hospital. Outpatient follow-up with your primary care physician. Disposition Disposition: Home, Self Care What to do if you have Problems For any increased pain, shortness of breath, bleeding, nausea or vomiting, chestpain, or any unexpected problems, contact your Primary Care Provider. Call [facility] ([phone]) or report to the closest Emergency Room. Call 911 if necessary. 07/20/23 1516 <Electronically signed by Jesica LUQUE> Cosigner Signature (if applicable): 07/20/23 1500 <Electronically signed by Rajan Hubbard MD> CC: Dr. Bennett Weir MD ~ Signed [facility] Work Phone: [phone] 458-853402-16-2024 History of Present illness Narrative* Stacy Mcduffie RN - 07/10/2023 8:04 AM EST [facility] Telephonic Outreach Provider Action/FYI monthly Contacted for: Routine Telephonic Outreach Contact made with patient: No, left message. Stacy Mcduffie RN July 10, 2023 11:11 AM documented in this encounterOhiohealth12-08-2023 History of Present illness Narrative* Gay Diaz RN - 05/01/2023 9:53 AM EST [facility] Telephonic Outreach Provider Action/FYI Contacted for: [...] of breath with activity? No Based on oreman, the following disposition is advised: No symptoms or symptoms present, not severe. Routed to: No Action Needed JENA Education Provided this Outreach: No Gay Diaz RN May 01, 2023 9:57 AM documented in this encounterOhiohealth12-01-2023 History of Present illness Narrative* Bennett Weir MD - 04/24/2023 11:29 AM EST This note was created using NoteWriter. Subjective [...] ago, and developed right knee pain, aggravated bymovement, but most bothersome at night. She did [...] F) Resp 12 Ht 157.5 cm (5' 2) Wt 71.7 kg (158 lb) SpO2 97% [...] Asymptomatic. Bennett Weir MD documented in this encounterOhiohealth11-07-2023 History of Present illness Narrative* Kirsten Leon, - 03/31/2023 8:39 AM EST Images from the original note were not included. 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 ALLERGIES: ALLERGIES Allergen Reactions Lovastatin Myalgia Severe myalgia, gi upset, Gzequkr-Fgm-Hgh Red* Myalgia Crestor [Rosuvastat* Other: See Comments [...] old female with peripheral arterial disease and non- lifestyle limiting claudication . PLAN and RECOMMENDATIONS: Doing well Follow up in one year Continue non-interventional therapy SIGNATURE: Kirsten Leon DO PATIENT NAME: Dinah Nelson DATE: March 31, 2023 TIME: 8:39 AM documented in this encounterOhiohealth10-23-2023 History of Present illness Narrative* Gay Diaz RN - 03/16/2023 11:17 AM EDT [facility] Telephonic Outreach Provider Action/FYI Contacted for: [...] of breath with activity? No Based on oreman, the following disposition is advised: No symptoms or symptoms present, not severe. Routed to: No Action Needed JENA Education Provided this Outreach: No Gay Diaz RN March 16, 2023 12:12 PM documented in this encounterOhiohealth08-29-2023 Instructions* Patient Instructions* Tamiko Quinn APRN.AUDIO VISUAL COORDINATOR - 01/20/2023 2:14 PM EDT Drink liquids frequently. Increase the amount to 2 to 3 liters or quarts daily as tolerated, or trysipping liquids in small amounts throughout the day. Choose diluted, pulpless fruit juices, broths,oral rehydration drinks or sodas (without caffeine). Chicken broth (without the fat), tea with honey, and sports drinks also are good choices. Instead of drinking liquids with your meals, drink liquid s between meals. Try these low-fiber foods: potatoes, rice, noodles, ripe bananas, applesauce, smooth peanut butter,white bread, chicken or turkey without the skin, [...] or signs of dehydration documented in this encounterOhiohealth08-29-2023 History of Present illness Narrative* Tamiko Quinn APRN.CNP - 01/20/2023 1:57 PM EDT CC Patient presents with: Diarrhea HPI Dinah Nelson is a 82 year old female who presents with diarrhea for 1 WEEK(S) Diarrhea is described as profuse watery occuring 2-5 stools/day on average. Associated with nausea and decreased appetite. Denies: vomiting, abdominal pain, bloating, heartburn/reflux, black/bloody stools, constipation She ate a taco salad from [place] the night before onset of symptoms and a family reunion the week before but no else is sick. She also had to clean up after a raw sewage leak two days prior to onset. Otherwise denies recent antibiotic use, foreign travel, sick contacts. No history of bowel issues.She has had a hemicolectomy and cholecystectomy. 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 Pt's appt time changed per her request Osiel, you've reached [facility], my name is Sonia Marsh RN, I'm a registered nurse, and we are on a recorded line. Patient identified by name and date of Spoke with patient Verify that the patient is a [facility] patient: Yes Are you having any symptoms today? No - What is the reason for call? Appointment Call Disposition: Routed to Navigation documented in this encounterOhiohealth08-29-2023 History of Present illness Narrative* Bryan Population Health NavigatorJeniffer - 01/20/2023 10:41 AM EDT POPULATION HEALTH NAVIGATION OUTREACH Action/FYI Received call from Sonia HALL Patient needed to change appt.time for today [...] display for this patient. Navigation Signature: Jeniffer Adams [facility] Health Navigator January 20, 2023 10:41 AM Electronically signed by Bryan [facility] Health NavigatorJeniffer at 01/20/2023 10:43 AM EDT documented in this encounterOhiohealth08-29-2023 History of Present illness Narrative* Edith Guy MA - 01/20/2023 10:37 AM EDT [facility] HEALTH NAVIGATION OUTREACH Action/I H@H [facility] Call. Received message in the Advanced LEDs pool from Nurse : Chrystal Hicks RN [...] to display for this patient. Navigation Signature: Edith Guy MA January 20, 2023 10:37 AM documented in this encounterOhiohealth08-14-2023 History of Present illness Narrative* Gay Diaz RN - 01/05/2023 12:28 PM EDT [facility] Telephonic Outreach Provider Action/FYI No questions, concerns, [...] of breath with activity? No Based on oreman, the following disposition is advised: No symptoms or symptoms present, not severe. Routed to: No Action Needed JENA Education Provided this Outreach: No Gay Diaz RN January 05, 2023 12:44 PM documented in this encounterOhiohealth08-08-2023 History of Present illness Narrative* Shanice Crawley PA - 12/30/2022 6:56 PM EDT Images from the original note were not included. This note was created using MD SolarSciencester. 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 Noactive bleeding. No foreign body seen. Very superficial. [...] ER evaluation. REBEL Duval documented in this encounterOhiohealth08-01-2023 History of Present illness Narrative* Rachelle Sumner LPN - 12/23/2022 10:[address] GoveaDinah was provided with powerstep gel inserts, size 8, and instructed/educated in its application, wear, and care. All questions were answered, and patient was able to demonstrate competence with the necessary skills to utilize the above equipment. Rachelle Sumner LPN * Akira Govea - 12/23/2022 9:45 AM EDT Images from the original note were not [...] posterior neck Mixed hyperlipidemia 03/24/2016 Polymyalgia rheumatica ([facility]) 09/16/2021 PVD (peripheral vascular disease) with claudication ([facility]) 07/27/2020 Raynaud's phenomenon without gangrene 11/27/2020 Thyroid nodule 11/08/2019 Unspecified hypothyroidism Current Outpatient Medications Medication Sig fexofenadine (NORY) 60 mg tablet Take 60 mg by mouth twice daily as needed. No current facility-administered medications for this visit. 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 Technologist: Teetee Briggs Bonita Ordering physician: KIRSTEN LEON Interpreting physician: EBONY [...] fracture ASSESSMENT: (D36.10) Neuroma (primary encounter diagnosis) (M79.672) Left foot pain PLAN: 1. History and [...] Dr. Ahuja for this 7. F/u prn Akira Govea DPM Podiatry [address] [facility] [address] Dept: [phone] Dept * Ioana Cadet RN - 12/23/2022 9:36 AM EDT AMB ROOMING INTAKE FLOWSHEET DATA Pain Pain [...] pain worse or better. documented in this encounterOhiohealth08-01-2023 Instructions* Patient Instructions* Akira Govea - 12/23/2022 9:55 AM EDT Powerstep Original Full length. Can purchase at [employer] Runner here in [place], [employer] in [place] or [place]. Also can find in [place] in [facility]. Powersteps can also be purchased online, starting [...] everything fits well together documented in this encounterOhiohealth06-30-2023 Instructions* Patient Instructions* Tamiko Quinn APRN.CNP - 11/21/2022 9:43 AM EDT The following [...] review all the medicines you take, even ezqb-jph-zaudnvq medicines. As you get older, the way medicines work in your body can change. Some medicines, or combinations of medicines, can make you sleepy or dizzy andcan cause you to fall. 3. Have your [...] or wearing slippers. For more information, contact: Centers for Disease Control and Prevention www.cdc.gov/injury * This information may not apply if you have certain medical conditions. documented in this encounterOhiohealth06-30-2023 History of Present illness Narrative* Tamiko Quinn APRN.CNP - 11/21/2022 9:39 AM EDT Dinah Nelson is a 82 year old female here for a Medicare Subsequent Annual Wellness Visit Health Risk Assessment In general, health is: Good Concerns with balance:Not at all Concerns with teeth or dentures:Not at all Concerns with sexual function:Not at all [place] anxious, stressed, angry, irritable, lonely, isolated, or [...] as PCP - General (Internal Medicine) Gay Diaz RN as Magento Developer Dr. Leon-vascular Dr. Farooq-general surgery (thyroid nodules) Outside specialists- [facility] (Dr. Rahman) Medical/Family history review Reviewed and updated problem list, medical/surgical/family/social history, medications, and allergies. Opioid use review Patient is not currently using opioids. Depression screening Depression Screening PHQ-2 Score 07/22/2022 0 Depression screening tool completed and reviewed. Based on score and interview, patient is not at risk for depression. Screening tool discussed with patient, and I recommended no further interventionat this time. Cognitive screening Mini Cog Score: [...] diet of 1000 mg/day for under 50, 1200- 1500 mg/day for 50+ - Discussed need and benefit for weight loss. BMI 29.80 kg/(m^2) - Patient was counseled [id number] by myself (the billing provider) for the [...] PODIATRY Tamiko Quinn APRN.CNP documented in this encounterOhiohealth06-27-2023 History of Present illness Narrative* Gay Diaz RN - 11/18/2022 10:39 AM EDT [facility] Telephonic Outreach Provider Action/FYI Contacted for: [...] of breath with activity? No Based on oreman, the following disposition is advised: No symptoms or symptoms present, not severe. Routed to: No Action Needed JENA Education Provided this Outreach: No Gay Diaz RN November 18, 2022 10:42 AM * Gay Diaz RN - 11/17/2022 3:37 PM EDT [facility] Telephonic Outreach Provider Action/FYI Contacted for: Routine Telephonic Outreach Contact made with patient: No, left message. Gay Diaz RN November 17, 2022 4:14 PM documented in this encounterOhiohealth04-28-2023 Miscellaneous Notes* Letter - Mammography Coordinator - 09/19/2022 12:24 PM EDT September 22, 2022 PID: [id number] Dinah Nelson [address] [place] [address] Dear Braden Nelson, We are pleased to inform you [...] report will be kept on file at [facility] as part of your permanent medical record and are available for your continuing care. Thank you for allowing us to help in meeting your health care needs. Sincerely, Dr. Orozco Interpreting Radiologist [facility] (Normal over 40) documented in this encounterOhiohealth04-27-2023 History of Present illness Narrative* Jamia Diaz Mammo Tech - 09/18/2022 2:10 PM EDT Radiology Service Progress Note PATIENT [...] 18, 2022 2:02 PM documented in this encounterOhiohealth04-25-2023 Miscellaneous Notes* Telephone Encounter - Fadumo Liu RN - 09/16/2022 8:34 AM EDT Patient calling to schedule appointments. Patient denies any new or worsening symptoms of which a provider is not aware:Yes. Conferenced to Appointment center to schedule appointment. documented in this encounterOhiohealth04-06-2023 History of Present illness Narrative* Johnna Gomez RN - 08/28/2022 8:50 AM EDT [facility] TELEPHONIC OUTREACH Provider Action/FYI: Patient [...] like to speak with a social work senior stereo compiler team lead to help give you support for any [...] work with you to ensure that we arekeeping your medical condition(s) well-controlled and to keep you healthy and out of the doctor's office or hospital. It s also not too late for me to sign you up for automated weekly questionnaires through [employer]. This is an easy way for us [...] the week as today in the Track PtOutreach and End outreach. documented in this encounterOhiohealth02-23-2023 History of Present illness Narrative* Johnna Gomez RN - 07/17/2022 9:22 AM EST [facility] TELEPHONIC OUTREACH Provider Action/FYI: Patient would like [facility] telephonic management Has Healthy at Home [...] like to speak with a social work senior stereo compiler team lead to help give you support for any [...] work with you to ensure that we arekeeping your medical condition(s) well-controlled and to keep you healthy and out of the doctor's office or hospital. It s also not too late for me to sign you up for automated weekly questionnaires through [employer]. This is an easy way for us [...] the week as today in the Track PtOutreach and End outreach. documented in this encounterOhiohealth01-11-2023 History of Present illness Narrative* Stacy Whitfield, GAURANG - 06/04/2022 10:45 AM EST Radiology Service Progress Note PATIENT NAME: Dinah [...] 04, 2022 11:03 AM documented in this encounterOhiohealth12-27-2022 Miscellaneous Notes* Telephone Encounter - Rowan Souza RN - 05/20/2022 11:24 AM EST Returned patients call with details regarding follow up and ultrasound. Dr Farooq's last note and recall letter state she should follow up with PCP for annual appt. and ultrasound. Pt stated she understood and would contact Dr Weir for an appointment. Appointment with Dr. Farooq will be cancelled for tomorrow.Rowan Souza RN * Telephone Encounter - Rachelle Sumner LPN - 05/20/2022 11:19 AM EST Patient returned call. Please call patient back with information. Rachelle Sumner LPN * Telephone Encounter - Rowan Souza RN - 05/20/2022 11:07 AM EST Contacted patient and left VM to contact office concerning her appointment with our office tomorrow. Patient scheduled an appointment with [facility] following a recall letter, however her 1 year follow upshould be scheduled with PCP for annual f/u and ultrasound according to Dr Farooqs last note and the recall letter. Rowan Souza RN documented in this encounterOhiohealth12-23-2022 History of Present illness Narrative* Brina Kapoor RN - 05/16/2022 10:05 AM EST [facility] Enrollment Provider Action/FYI: H@H In addition to what I have discussed, I am providing you with a phone number that gives you one call access to nursing, appointments, and other valuable resources. I am also sending this information to your [employer]. Please take the time to write this number down . This number is available 7 days a week from 8am-8pm. Patient referred by: [facility] Harsha Contact made with patient: Yes - Patient identified by name and . Discussed care with patient Osiel this is Brina Kapoor RN and I am calling from Bennett Weir MD office at the [facility]. I am a RN Tie Man with our [facility] Chronic Disease Management program. Bennett Miller MD wanted me to reach out to [...] few questions once a week through your [employer] account. It will automatically show up for [...] to put it into action on their own.Itcan be hard to maintain a healthy lifestyle, especially when life is so stressful. Can we connect you with a [facility] Airveyor Operator to find a program that could help you meet your goals? No Closing: Patient accepts child care lead teacher Thank you for your time today. I am excited to work together in managing your health! You will receive information on next steps through your [employer] account, and I will check back within a few weeks to ensure you have all that you need to use the program successfully. (Place name in care team and assign Viewpoint LLChart Universal Grinder Tool questionnaire) * Brina Kapoor RN - 05/15/2022 9:21 AM EST [facility] M Enrollment Provider Action/FYI: H@H Patient referred by: [facility] Harsha Contact made with patient: No - Left Message: Hi my name is Brina Kapoor RN and I am calling from the [facility] on behalf of your PCP, Bennett Weir [...] from today) END OUTREACH documented in this encounterOhiohealth12-14-2022 History of Present illness Narrative* Bennett Weir MD - 05/07/2022 10:05 AM EST This note was created using [email or web address]. Subjective Dinah Nelson was here with her [...] Reactions Lovastatin Myalgia Severe myalgia, gi upset, Pauphjf-Asf-Ewz Red* Myalgia Crestor [Rosuvastat* Other: See Comments [...] now. Bennett Weir MD documented in this encounterOhiohealth11-10-2022 History of Present illness Narrative* Kirsten Leon DO - 04/03/2022 2:46 PM EST This office note has been dictated. Kirsten Leon DO documented in this encounterOhiohealth11-02-2022 Miscellaneous Notes* Telephone Encounter - Shamika Michaud - 03/26/2022 9:00 AM EDT Patient need updated order for PVR other . She is scheduled for OV 04/03/22 Thank you documented in this encounterOhiohealth09-27-2022 History of Present illness Narrative* Tamiko Quinn APRN.TOMASA - 02/18/2022 1:06 PM EDT CC: Patient presents with: Follow Up HPI [...] No recent illnesses. No new medications. Reviewed [facility] ER visit. EKG normal sinus rhythm. 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 Patient agreeable to treatment plan. Tamiok Quinn APRN.CNP documented in this encounterOhiohealth08-29-2022 History of Present illness Narrative* Bennett Weir MD - 01/20/2022 4:21 PM EDT This note was created using [email or web address]. Subjective Dinah Nelson is a 81 year old female. She was on prednisone since August for PMR. We reduced dosein stages and she was now down to 1 mg of prednisone daily. Her myalgias and arthralgias were againsymptomatic. Her right shoulder was clicking. She also [...] <130/80 Bennett Weir MD documented in this encounterOhiohealth08-29-2022 History of Past illness Narrative* Problem Noted Date Resolved Date Synovitis of wrist 01/20/2022 07/23/2022 Polymyalgia rheumatica 09/16/2021 Atherosclerosis of arteries 03/24/201606/26 Hematuria 01/16/2014 02/22/2015 PMB (postmenopausal bleeding) 06/20/2011 [place] favor benign 06/20/2011 03/24/2016 Diverticulosis 04/15/2011 03/24/2016 Last Assessment & Plan: Denies any abd pain, fevers. Denies any constipation or diarrhea. Diverticulitis 11/13/2009 04/15/2011 Overview: [facility] admission 11/02/09-11/05/09. Tx with cefixime, flagyl [...] of this encounter (statuses as of 08/28/2022) [facility] of Past illness Narrative* Problem Noted Date Resolved Date Synovitis of wrist 01/20/2022 07/23/2022 Polymyalgia rheumatica 09/16/2021 Atherosclerosis of arteries 03/24/201606/26 Hematuria 01/16/2014 02/22/2015 PMB (postmenopausal bleeding) 06/20/2011 [place] favor benign 06/20/2011 03/24/2016 Diverticulosis 04/15/2011 03/24/2016 Last Assessment & Plan: Denies any abd pain, fevers. Denies any constipation or diarrhea. Diverticulitis 11/13/2009 04/15/2011 Overview: [facility] admission 11/02/09-11/05/09. Tx with cefixime, flagyl [...] of this encounter (statuses as of 09/16/2022) [facility] of Past illness Narrative* Problem Noted Date Resolved Date Synovitis of wrist 01/20/2022 07/23/2022 Polymyalgia rheumatica 09/16/2021 Atherosclerosis of arteries 03/24/201606/26 Hematuria 01/16/2014 02/22/2015 PMB (postmenopausal bleeding) 06/20/2011 [place] favor benign 06/20/2011 03/24/2016 Diverticulosis 04/15/2011 03/24/2016 Last Assessment & Plan: Denies any abd pain, fevers. Denies any constipation or diarrhea. Diverticulitis 11/13/2009 04/15/2011 Overview: [facility] admission 11/02/09-11/05/09. Tx with cefixime, flagyl [...] of this encounter (statuses as of 09/23/2022) [facility] of Past illness Narrative* Problem Noted Date Resolved Date Synovitis of wrist 01/20/2022 07/23/2022 Polymyalgia rheumatica 09/16/2021 Atherosclerosis of arteries 03/24/201606/26 Hematuria 01/16/2014 02/22/2015 PMB (postmenopausal bleeding) 06/20/2011 [place] favor benign 06/20/2011 03/24/2016 Diverticulosis 04/15/2011 03/24/2016 Last Assessment & Plan: Denies any abd pain, fevers. Denies any constipation or diarrhea. Diverticulitis 11/13/2009 04/15/2011 Overview: [facility] admission 11/02/09-11/05/09. Tx with cefixime, flagyl [...] uncontrolled levels of TC, LDLs. LDL Chol, [place] (mg/dL) Date Value 01/02/2011 190* Esophageal reflux 03/24/2016 Last Assessment & Plan: Notes generally well controlled with dietary monitoring. Denies any indigestion or heartburn. Occasional dysphagia- generally with liquids- intermittent. documented as of this encounter (statuses as of 11/18/2022) [facility] History of Past illness Narrative* Problem Noted Date Resolved Date Synovitis of wrist 01/20/2022 07/23/2022 Polymyalgia rheumatica 09/16/2021 3 Atherosclerosis of arteries 03/24/201606/26 Hematuria 01/16/2014 02/22/2015 PMB (postmenopausal bleeding) 06/20/2011 [place] favor benign 06/20/2011 03/24/2016 Diverticulosis 04/15/2011 03/24/2016 Last Assessment & Plan: Denies any abd pain, fevers. Denies any constipation or diarrhea. Diverticulitis 11/13/2009 04/15/2011 Overview: [facility] admission 11/02/09-11/05/09. Tx with cefixime, flagyl [...] uncontrolled levels of TC, LDLs. LDL Chol, [place] (mg/dL) Date Value 01/02/2011 190* Esophageal reflux 03/24/2016 Last Assessment & Plan: Notes generally well controlled with dietary monitoring. Denies any indigestion or heartburn. Occasional dysphagia- generally with liquids- intermittent. documented as of this encounter (statuses as of 11/21/2022) [facility] History of Past illness Narrative* Problem Noted Date Diagnosed Date Resolved Date Synovitis of wrist 01/20/2022 3 Polymyalgia rheumatica 09/16/202107/23 Atherosclerosis of arteries 03/24/2016 07/22/2022 Hematuria 01/16/2014 02/22/2015 PMB (postmenopausal bleeding) 06/20/2011 03/24/2016 KOLTON favor benign 06/20/2011 03/24/2016 Diverticulosis 04/15/2011 03/24/2016 Last Assessment & Plan: Denies any abd pain, fevers. Denies any constipation or diarrhea. Diverticulitis 11/13/2009 04/15/2011 Overview: [facility] admission 11/02/09-11/05/09. Tx with cefixime, flagyl [...] uncontrolled levels of TC, LDLs. LDL Chol, [place] (mg/dL) Date Value 01/02/2011 190* Esophageal reflux 03/24/2016 Last Assessment & Plan: Notes generally well controlled with dietary monitoring. Denies any indigestion or heartburn. Occasional dysphagia- generally with liquids- intermittent. documented as of this encounter (statuses as of 12/15/2022) [facility] History of Past illness Narrative* Problem Noted Date Diagnosed Date Resolved Date Synovitis of wrist 01/20/2022 Polymyalgia rheumatica 09/16/202107/23 Atherosclerosis of arteries 03/24/2016 07/22/2022 Hematuria 01/16/2014 02/22/2015 PMB (postmenopausal bleeding) 06/20/2011 03/24/2016 KOLTON favor benign 06/20/2011 03/24/2016 Diverticulosis 04/15/2011 03/24/2016 Last Assessment & Plan: Denies any abd pain, fevers. Denies any constipation or diarrhea. Diverticulitis 11/13/2009 04/15/2011 Overview: [facility] admission 11/02/09-11/05/09. Tx with cefixime, flagyl [...] of this encounter (statuses as of 12/23/2022) [facility] History of Past illness Narrative* Problem Noted Date Diagnosed Date Resolved Date Synovitis of wrist 01/20/2022 Polymyalgia rheumatica 09/16/202107/23 Atherosclerosis of arteries 03/24/2016 07/22/2022 Hematuria 01/16/2014 02/22/2015 PMB (postmenopausal bleeding) 06/20/2011 03/24/2016 KOLTON favor benign 06/20/2011 03/24/2016 Diverticulosis 04/15/2011 03/24/2016 Last Assessment & Plan: Denies any abd pain, fevers. Denies any constipation or diarrhea. Diverticulitis 11/13/2009 04/15/2011 Overview: [facility] admission 11/02/09-11/05/09. Tx with cefixime, flagyl [...] of this encounter (statuses as of 12/31/2022) [facility] History of Past illness Narrative* Problem Noted Date Diagnosed Date Resolved Date Synovitis of wrist 01/20/2022 Polymyalgia rheumatica 09/16/202107/23 Atherosclerosis of arteries 03/24/2016 07/22/2022 Hematuria 01/16/2014 02/22/2015 PMB (postmenopausal bleeding) 06/20/2011 03/24/2016 KOLTON favor benign 06/20/2011 03/24/2016 Diverticulosis 04/15/2011 03/24/2016 Last Assessment & Plan: Denies any abd pain, fevers. Denies any constipation or diarrhea. Diverticulitis 11/13/2009 04/15/2011 Overview: [facility] admission 11/02/09-11/05/09. Tx with cefixime, flagyl [...] of this encounter (statuses as of 01/05/2023) [facility] History of Past illness Narrative* Problem Noted Date Diagnosed Date Resolved Date Synovitis of wrist 01/20/2022 Polymyalgia rheumatica 09/16/202107/23 Atherosclerosis of arteries 03/24/2016 07/22/2022 Hematuria 01/16/2014 02/22/2015 PMB (postmenopausal bleeding) 06/20/2011 03/24/2016 KOLTON favor benign 06/20/2011 03/24/2016 Diverticulosis 04/15/2011 03/24/2016 Last Assessment & Plan: Denies any abd pain, fevers. Denies any constipation or diarrhea. Diverticulitis 11/13/2009 04/15/2011 Overview: [facility] admission 11/02/09-11/05/09. Tx with cefixime, flagyl [...] of this encounter (statuses as of 01/06/2023) [facility] History of Past illness Narrative* Problem Noted Date Diagnosed Date Resolved Date Synovitis of wrist 01/20/2022 Polymyalgia rheumatica 09/16/202107/23 Atherosclerosis of arteries 03/24/2016 07/22/2022 Hematuria 01/16/2014 02/22/2015 PMB (postmenopausal bleeding) 06/20/2011 03/24/2016 KOLTON favor benign 06/20/2011 03/24/2016 Diverticulosis 04/15/2011 03/24/2016 Last Assessment & Plan: Denies any abd pain, fevers. Denies any constipation or diarrhea. Diverticulitis 11/13/2009 04/15/2011 Overview: [facility] admission 11/02/09-11/05/09. Tx with cefixime, flagyl [...] of this encounter (statuses as of 01/20/2023) [facility] History of Past illness Narrative* Problem Noted Date Diagnosed Date Resolved Date Synovitis of wrist 01/20/2022 Polymyalgia rheumatica 09/16/202107/23 Atherosclerosis of arteries 03/24/2016 07/22/2022 Hematuria 01/16/2014 02/22/2015 PMB (postmenopausal bleeding) 06/20/2011 03/24/2016 KOLTON favor benign 06/20/2011 03/24/2016 Diverticulosis 04/15/2011 03/24/2016 Last Assessment & Plan: Denies any abd pain, fevers. Denies any constipation or diarrhea. Diverticulitis 11/13/2009 04/15/2011 Overview: [facility] admission 11/02/09-11/05/09. Tx with cefixime, flagyl [...] of this encounter (statuses as of 01/21/2023) [facility] History of Past illness Narrative* Problem Noted Date Diagnosed Date Resolved Date Synovitis of wrist 01/20/2022 Polymyalgia rheumatica 09/16/202107/23 Atherosclerosis of arteries 03/24/2016 07/22/2022 Hematuria 01/16/2014 02/22/2015 PMB (postmenopausal bleeding) 06/20/2011 03/24/2016 KOLTON favor benign 06/20/2011 03/24/2016 Diverticulosis 04/15/2011 03/24/2016 Last Assessment & Plan: Denies any abd pain, fevers. Denies any constipation or diarrhea. Diverticulitis 11/13/2009 04/15/2011 Overview: [facility] admission 11/02/09-11/05/09. Tx with cefixime, flagyl [...] uncontrolled levels of TC, LDLs. LDL Chol, [place] (mg/dL) Date Value 01/02/2011 190* Esophageal reflux 03/24/2016 Last Assessment & Plan: Notes generally well controlled with dietary monitoring. Denies any indigestion or heartburn. Occasional dysphagia- generally with liquids- intermittent. documented as of this encounter (statuses as of 03/16/2023) [facility] History of Past illness Narrative* Problem Noted Date Diagnosed Date Resolved Date Synovitis of wrist 01/20/2022 Polymyalgia rheumatica 09/16/202107/23 Atherosclerosis of arteries 03/24/2016 07/22/2022 Hematuria 01/16/2014 02/22/2015 PMB (postmenopausal bleeding) 06/20/2011 03/24/2016 KOLTON favor benign 06/20/2011 03/24/2016 Diverticulosis 04/15/2011 03/24/2016 Last Assessment & Plan: Denies any abd pain, fevers. Denies any constipation or diarrhea. Diverticulitis 11/13/2009 04/15/2011 Overview: [facility] admission 11/02/09-11/05/09. Tx with cefixime, flagyl [...] uncontrolled levels of TC, LDLs. LDL Chol, [place] (mg/dL) Date Value 01/02/2011 190* Esophageal reflux 03/24/2016 Last Assessment & Plan: Notes generally well controlled with dietary monitoring. Denies any indigestion or heartburn. Occasional dysphagia- generally with liquids- intermittent. documented as of this encounter (statuses as of 03/29/2023) [facility] History of Past illness Narrative* Problem Noted Date Diagnosed Date Resolved Date Synovitis of wrist 01/20/2022 Polymyalgia rheumatica 09/16/202107/23 Atherosclerosis of arteries 03/24/2016 07/22/2022 Hematuria 01/16/2014 02/22/2015 PMB (postmenopausal bleeding) 06/20/2011 03/24/2016 KOLTON favor benign 06/20/2011 03/24/2016 Diverticulosis 04/15/2011 03/24/2016 Last Assessment & Plan: Denies any abd pain, fevers. Denies any constipation or diarrhea. Diverticulitis 11/13/2009 04/15/2011 Overview: [facility] admission 11/02/09-11/05/09. Tx with cefixime, flagyl [...] of this encounter (statuses as of 03/29/2023) [facility] History of Past illness Narrative* Problem Noted Date Diagnosed Date Resolved Date Synovitis of wrist 01/20/2022 Polymyalgia rheumatica 09/16/202107/23 Atherosclerosis of arteries 03/24/2016 07/22/2022 Hematuria 01/16/2014 02/22/2015 PMB (postmenopausal bleeding) 06/20/2011 03/24/2016 KOLTON favor benign 06/20/2011 03/24/2016 Diverticulosis 04/15/2011 03/24/2016 Last Assessment & Plan: Denies any abd pain, fevers. Denies any constipation or diarrhea. Diverticulitis 11/13/2009 04/15/2011 Overview: [facility] admission 11/02/09-11/05/09. Tx with cefixime, flagyl [...] of this encounter (statuses as of 03/29/2023) [facility] History of Past illness Narrative* Problem Noted Date Diagnosed Date Resolved Date Synovitis of wrist 01/20/2022 Polymyalgia rheumatica 09/16/202107/23 Atherosclerosis of arteries 03/24/2016 07/22/2022 Hematuria 01/16/2014 02/22/2015 PMB (postmenopausal bleeding) 06/20/2011 03/24/2016 KOLTON favor benign 06/20/2011 03/24/2016 Diverticulosis 04/15/2011 03/24/2016 Last Assessment & Plan: Denies any abd pain, fevers. Denies any constipation or diarrhea. Diverticulitis 11/13/2009 04/15/2011 Overview: [facility] admission 11/02/09-11/05/09. Tx with cefixime, flagyl [...] of this encounter (statuses as of 04/14/2023) [facility] History of Past illness Narrative* Problem Noted Date Diagnosed Date Resolved Date Synovitis of wrist 01/20/2022 Polymyalgia rheumatica 09/16/202107/23 Atherosclerosis of arteries 03/24/2016 07/22/2022 Hematuria 01/16/2014 02/22/2015 PMB (postmenopausal bleeding) 06/20/2011 03/24/2016 KOLTON favor benign 06/20/2011 03/24/2016 Diverticulosis 04/15/2011 03/24/2016 Last Assessment & Plan: Denies any abd pain, fevers. Denies any constipation or diarrhea. Diverticulitis 11/13/2009 04/15/2011 Overview: [facility] admission 11/02/09-11/05/09. Tx with cefixime, flagyl [...] uncontrolled levels of TC, LDLs. LDL Chol, [place] (mg/dL) Date Value 01/02/2011 190* Esophageal reflux 03/24/2016 Last Assessment & Plan: Notes generally well controlled with dietary monitoring. Denies any indigestion or heartburn. Occasional dysphagia- generally with liquids- intermittent. documented as of this encounter (statuses as of 04/25/2023) [facility] History of Past illness Narrative* Problem Noted Date Diagnosed Date Resolved Date Synovitis of wrist 01/20/2022 Polymyalgia rheumatica 09/16/202107/23 Atherosclerosis of arteries 03/24/2016 07/22/2022 Hematuria 01/16/2014 02/22/2015 PMB (postmenopausal bleeding) 06/20/2011 03/24/2016 KOLTON favor benign 06/20/2011 03/24/2016 Diverticulosis 04/15/2011 03/24/2016 Last Assessment & Plan: Denies any abd pain, fevers. Denies any constipation or diarrhea. Diverticulitis 11/13/2009 04/15/2011 Overview: [facility] admission 11/02/09-11/05/09. Tx with cefixime, flagyl [...] of this encounter (statuses as of 05/01/2023) [facility] History of Past illness Narrative* Problem Noted Date Diagnosed Date Resolved Date Synovitis of wrist 01/20/2022 Polymyalgia rheumatica 09/16/202107/23 Atherosclerosis of arteries 03/24/2016 07/22/2022 Hematuria 01/16/2014 02/22/2015 PMB (postmenopausal bleeding) 06/20/2011 03/24/2016 KOLTON favor benign 06/20/2011 03/24/2016 Diverticulosis 04/15/2011 03/24/2016 Last Assessment & Plan: Denies any abd pain, fevers. Denies any constipation or diarrhea. Diverticulitis 11/13/2009 04/15/2011 Overview: [facility] admission 11/02/09-11/05/09. Tx with cefixime, flagyl [...] uncontrolled levels of TC, LDLs. LDL Chol, [place] (mg/dL) Date Value 01/02/2011 190* Esophageal reflux 03/24/2016 Last Assessment & Plan: Notes generally well controlled with dietary monitoring. Denies any indigestion or heartburn. Occasional dysphagia- generally with liquids- intermittent. documented as of this encounter (statuses as of 06/29/2023) [facility] History of Past illness Narrative* Problem Noted Date Diagnosed Date Resolved Date Synovitis of wrist 01/20/2022 Polymyalgia rheumatica 09/16/202107/23 Atherosclerosis of arteries 03/24/2016 07/22/2022 Hematuria 01/16/2014 02/22/2015 PMB (postmenopausal bleeding) 06/20/2011 03/24/2016 KOLTON favor benign 06/20/2011 03/24/2016 Diverticulosis 04/15/2011 03/24/2016 Last Assessment & Plan: Denies any abd pain, fevers. Denies any constipation or diarrhea. Diverticulitis 11/13/2009 04/15/2011 Overview: [facility] admission 11/02/09-11/05/09. 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 Denies any constipation or diarrhea. Diverticulitis 11/13/2009 04/15/2011 Overview: [facility] admission 11/02/09-11/05/09. Tx with cefixime, flagyl [...] as of this encounter (statuses as of 07/23/2023) [facility] History of Past illness Narrative* Problem Noted Date Diagnosed Date Resolved Date Synovitis of wrist 01/20/2022 Polymyalgia rheumatica 09/16/202107/23 Atherosclerosis of arteries 03/24/2016 07/22/2022 Hematuria 01/16/2014 02/22/2015 PMB (postmenopausal bleeding) 06/20/2011 03/24/2016 KOLTON favor benign 06/20/2011 03/24/2016 Diverticulosis 04/15/2011 03/24/2016 Last Assessment & Plan: Denies any abd pain, fevers. Denies any constipation or diarrhea. Diverticulitis 11/13/2009 04/15/2011 Overview: [facility] admission 11/02/09-11/05/09. 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 LDL Chol, [place] (mg/dL) Date Value 01/02/2011 190* Esophageal reflux 03/24/2016 Last Assessment & Plan: Notes generally well controlled with dietary monitoring. Denies any indigestion or heartburn. Occasional dysphagia- generally with liquids- intermittent. documented as of this encounter (statuses as of 07/24/2023) [facility] History of Past illness Narrative* Problem Noted Date Diagnosed Date Resolved Date Synovitis of wrist 01/20/2022 Polymyalgia rheumatica 09/16/202107/23 Atherosclerosis of arteries 03/24/2016 07/22/2022 Hematuria 01/16/2014 02/22/2015 PMB (postmenopausal bleeding) 06/20/2011 03/24/2016 KOLTON favor benign 06/20/2011 03/24/2016 Diverticulosis 04/15/2011 03/24/2016 Last Assessment & Plan: Denies any abd pain, fevers. Denies any constipation or diarrhea. Diverticulitis 11/13/2009 04/15/2011 Overview: [facility] admission 11/02/09-11/05/09. Tx with cefixime, flagyl [...] as of this encounter (statuses as of 08/14/2023) [facility] History of Past illness Narrative* Problem Noted Date Diagnosed Date Resolved Date Synovitis of wrist 01/20/2022 Polymyalgia rheumatica 09/16/202107/23 Atherosclerosis of arteries 03/24/2016 07/22/2022 Hematuria 01/16/2014 02/22/2015 PMB (postmenopausal bleeding) 06/20/2011 03/24/2016 KOLTON favor benign 06/20/2011 03/24/2016 Diverticulosis 04/15/2011 03/24/2016 Last Assessment & Plan: Denies any abd pain, fevers. Denies any constipation or diarrhea. Diverticulitis 11/13/2009 04/15/2011 Overview: [facility] admission 11/02/09-11/05/09. Tx with cefixime, flagyl [...] uncontrolled levels of TC, LDLs. LDL Chol, [place] (mg/dL) Date Value 01/02/2011 190* Esophageal reflux 03/24/2016 Last Assessment & Plan: Notes generally well controlled with dietary monitoring. Denies any indigestion or heartburn. Occasional dysphagia- generally with liquids- intermittent. documented as of this encounter (statuses as of 08/24/2023) [facility] History of Past illness Narrative* Problem Noted Date Diagnosed Date Resolved Date Synovitis of wrist 01/20/2022 Polymyalgia rheumatica 09/16/202107/23 Atherosclerosis of arteries 03/24/2016 07/22/2022 Hematuria 01/16/2014 02/22/2015 PMB (postmenopausal bleeding) 06/20/2011 03/24/2016 KOLTON favor benign 06/20/2011 03/24/2016 Diverticulosis 04/15/2011 03/24/2016 Last Assessment & Plan: Denies any abd pain, fevers. Denies any constipation or diarrhea. Diverticulitis 11/13/2009 04/15/2011 Overview: [facility] admission 11/02/09-11/05/09. Tx with cefixime, flagyl [...] uncontrolled levels of TC, LDLs. LDL Chol, [place] (mg/dL) Date Value 01/02/2011 190* Esophageal reflux 03/24/2016 Last Assessment & Plan: Notes generally well controlled with dietary monitoring. Denies any indigestion or heartburn. Occasional dysphagia- generally with liquids- intermittent. documented as of this encounter (statuses as of 09/03/2023) [facility] Miscellaneous Notes* Telephone Encounter - Makenzie Larson LPN - 01/15/2022 9:07 AM EDT Spoke to Maria A/daughter, appt scheduled. Makenzie Larson LPN * Telephone Encounter - Taimko Quinn APRN.CNP - 01/15/2022 7:56 AM EDT Please call patient to schedule follow-up within a week Tamiko Quinn APRN.CNP documented in this encounterOhiohealth08-18-2022 History of Present illness Narrative* Brina Munroe RT(R) - 01/09/2022 10:50 AM EDT Radiology Service Progress Note PATIENT NAME: Dinah Nelson DATE OF SERVICE: January 09, 2022 TIME: 10:48 AM PATIENT IDENTITY VERIFICATION COMPLETED USING TWO [...] IMPLANT DATA REVIEWED: Not Applicable RADIOLOGY DEPARTMENT: General X-ray: Exam(s) Completed: Rib X-Ray: Left PERIPHERAL IV DATA: Not applicable SIGNED BY: RT Jimi(R) January 09, 2022 10:48 AM documented in this encounterOhiohealth08-18-2022 History of Present illness Narrative* Tamiko Quinn, CAR SALESMAN.AUDIO VISUAL COORDINATOR - 01/09/2022 10:25 AM EDT CC: Patient [...] certain movements. Associated with malaise, fatigue, feeling cold, mild SOB with exertion. 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 Tamiko Quinn APRN.CNP documented in this encounterOhiohealth07-06-2022 History of Present illness Narrative* RT Ovidio(R) [...] 27, 2021 1:03 PM documented in this encounterOhiohealth04-25-2022 Instructions* Patient Instructions* Bennett Weir MD - 09/16/2021 2:49 PM EDT TELL LAB YOU HAVE TWO SETS OF BLOOD TESTS FOR Kelly. FASTING. documented in this encounterOhiohealth04-25-2022 History of Present illness Narrative* Bennett Weir MD - 09/16/2021 2:42 PM EDT This note was created using [email or web address]. Subjective Dinah Nelson is a 81 year [...] including weight gain, diabetes mellitus. DVT. Duration: skilled nursing 3- 12 months, depending on control of symptoms and labs. - PREDNISONE 10 MG TABLET - SED RATE WESTERGREN - C-REACTIVE PROTEIN (CRP) 2. Essential hypertension - ICD9: 401.9, ICD10: I10 - fair control - Continue diet.only for now. Bennett Weir MD documented in this encounterOhiohealth04-14-2022 Miscellaneous Notes* Telephone Encounter - Jesica June [...] pt. Jillian Shell LPN documented in this encounterOhiohealth04-08-2022 Miscellaneous Notes* Telephone Encounter - Bennett Weir MD - 08/30/2021 1:38 PM EDT Patient seen. documented in this encounterOhiohealth04-08-2022 Instructions* Patient Instructions* Bennett Weir MD - 08/30/2021 9:35 AM EDT STOP LISINOPRIL. TOMORROW START AMLODIPINE FOR BLOOD PRESSURE. documented in this encounterOhiohealth04-08-2022 History of Present illness Narrative* Bennett Weir MD - 08/30/2021 9:08 AM EDT This note was created using MD Solar[employer]. Subjective Dinah Nelson is a 81 year [...] up. Bennett Weir MD documented in this encounterOhiohealth04-07-2022 Miscellaneous Notes* Telephone Encounter - Makenzie Larson [...] them to be checked. documented in this encounterOhiohealth03-23-2022 Miscellaneous Notes* Letter - Mammography Coordinator - 08/14/2021 12:42 PM EDT August 14, 2021 PID: [id number] Dinah Nelson [address] [place] [address] Dear Ms. Nelson, We are pleased to [...] report will be [facility] at [facility] as part of your permanent medical record and are available for your continuing care. Thank you for allowing us to help in meeting your health care needs. Sincerely, Dr. Gonzalez Interpreting Radiologist [facility] (Normal over 40) documented in this encounterOhiohealth08-25-2014 History of Past illness Narrative* Problem Noted Date Resolved Date Hematuria 01/16/2014 02/22/2015 PMB (postmenopausal bleeding) 06/20/2011 KOLTON favor benign 06/20/2011 03/24/2016 Diverticulosis 04/15/2011 03/24/2016 Last Assessment & Plan: Denies any abd pain, fevers. Denies any constipation or diarrhea. Diverticulitis 11/13/2009 04/15/2011 Overview: [facility] admission 11/02/09-11/05/09. Tx with cefixime, flagyl [...] uncontrolled levels of TC, LDLs. LDL Chol, [place] (mg/dL) Date Value 01/02/2011 190* Esophageal reflux 03/24/2016 Last Assessment & Plan: Notes generally well controlled with dietary monitoring. Denies any indigestion or heartburn. Occasional dysphagia- generally with liquids- intermittent. documented as of this encounter (statuses as of 08/16/2021) [facility] History of Past illness Narrative* Problem Noted Date Resolved Date Hematuria 01/16/2014 02/22/2015 PMB (postmenopausal bleeding) 06/20/2011 KOLTON favor benign 06/20/2011 03/24/2016 Diverticulosis 04/15/2011 03/24/2016 Last Assessment & Plan: Denies any abd pain, fevers. Denies any constipation or diarrhea. Diverticulitis 11/13/2009 04/15/2011 Overview: [facility] admission 11/02/09-11/05/09. Tx with cefixime, flagyl [...] uncontrolled levels of TC, LDLs. LDL Chol, [place] (mg/dL) Date Value 01/02/2011 190* Esophageal reflux 03/24/2016 Last Assessment & Plan: Notes generally well controlled with dietary monitoring. Denies any indigestion or heartburn. Occasional dysphagia- generally with liquids- intermittent. documented as of this encounter (statuses as of 08/29/2021) [facility] History of Past illness Narrative* Problem Noted Date Resolved Date Hematuria 01/16/2014 02/22/2015 PMB (postmenopausal bleeding) 06/20/2011 KOLTON favor benign 06/20/2011 03/24/2016 Diverticulosis 04/15/2011 03/24/2016 Last Assessment & Plan: Denies any abd pain, fevers. Denies any constipation or diarrhea. Diverticulitis 11/13/2009 04/15/2011 Overview: [facility] admission 11/02/09-11/05/09. Tx with cefixime, flagyl [...] uncontrolled levels of TC, LDLs. LDL Chol, [place] (mg/dL) Date Value 01/02/2011 190* Esophageal reflux 03/24/2016 Last Assessment & Plan: Notes generally well controlled with dietary monitoring. Denies any indigestion or heartburn. Occasional dysphagia- generally with liquids- intermittent. documented as of this encounter (statuses as of 08/30/2021) [facility] History of Past illness Narrative* Problem Noted Date Resolved Date Hematuria 01/16/2014 02/22/2015 PMB (postmenopausal bleeding) 06/20/2011 KOLTON favor benign 06/20/2011 03/24/2016 Diverticulosis 04/15/2011 03/24/2016 Last Assessment & Plan: Denies any abd pain, fevers. Denies any constipation or diarrhea. Diverticulitis 11/13/2009 04/15/2011 Overview: [facility] admission 11/02/09-11/05/09. Tx with cefixime, flagyl [...] of this encounter (statuses as of 08/30/2021) [facility] Narrative* Problem Noted Date Resolved Date Hematuria 01/16/2014 02/22/2015 PMB (postmenopausal bleeding) 06/20/2011 KOLTON favor benign 06/20/2011 03/24/2016 Diverticulosis 04/15/2011 03/24/2016 Last Assessment & Plan: Denies any abd pain, fevers. Denies any constipation or diarrhea. Diverticulitis 11/13/2009 04/15/2011 Overview: [facility] admission 11/02/09-11/05/09. Tx with cefixime, flagyl [...] uncontrolled levels of TC, LDLs. LDL Chol, [place] (mg/dL) Date Value 01/02/2011 190* Esophageal reflux 03/24/2016 Last Assessment & Plan: Notes generally well controlled with dietary monitoring. Denies any indigestion or heartburn. Occasional dysphagia- generally with liquids- intermittent. documented as of this encounter (statuses as of 09/05/2021) [facility] History of Past illness Narrative* Problem Noted Date Resolved Date Hematuria 01/16/2014 02/22/2015 PMB (postmenopausal bleeding) 06/20/2011 [place] favor benign 06/20/2011 03/24/2016 Diverticulosis 04/15/2011 03/24/2016 Last Assessment & Plan: Denies any abd pain, fevers. Denies any constipation or diarrhea. Diverticulitis 11/13/2009 04/15/2011 Overview: [facility] admission 11/02/09-11/05/09. Tx with cefixime, flagyl [...] of this encounter (statuses as of 09/09/2021) [facility] History of Past illness Narrative* Problem Noted Date Resolved Date Hematuria 01/16/2014 02/22/2015 PMB (postmenopausal bleeding) 06/20/2011 [place] favor benign 06/20/2011 03/24/2016 Diverticulosis 04/15/2011 03/24/2016 Last Assessment & Plan: Denies any abd pain, fevers. Denies any constipation or diarrhea. Diverticulitis 11/13/2009 04/15/2011 Overview: [facility] admission 11/02/09-11/05/09. Tx with cefixime, flagyl [...] of this encounter (statuses as of 09/16/2021) [facility] History of Past illness Narrative* Problem Noted Date Resolved Date Hematuria 01/16/2014 02/22/2015 PMB (postmenopausal bleeding) 06/20/2011 [place] favor benign 06/20/2011 03/24/2016 Diverticulosis 04/15/2011 03/24/2016 Last Assessment & Plan: Denies any abd pain, fevers. Denies any constipation or diarrhea. Diverticulitis 11/13/2009 04/15/2011 Overview: [facility] admission 11/02/09-11/05/09. Tx with cefixime, flagyl [...] of this encounter (statuses as of 11/28/2021) [facility] History of Past illness Narrative* Problem Noted Date Resolved Date Hematuria 01/16/2014 02/22/2015 PMB (postmenopausal bleeding) 06/20/2011 [place] favor benign 06/20/2011 03/24/2016 Diverticulosis 04/15/2011 03/24/2016 Last Assessment & Plan: Denies any abd pain, fevers. Denies any constipation or diarrhea. Diverticulitis 11/13/2009 04/15/2011 Overview: [facility] admission 11/02/09-11/05/09. Tx with cefixime, flagyl [...] uncontrolled levels of TC, LDLs. LDL Chol, [place] (mg/dL) Date Value 01/02/2011 190* Esophageal reflux 03/24/2016 Last Assessment & Plan: Notes generally well controlled with dietary monitoring. Denies any indigestion or heartburn. Occasional dysphagia- generally with liquids- intermittent. documented as of this encounter (statuses as of 01/09/2022) [facility] History of Past illness Narrative* Problem Noted Date Resolved Date Hematuria 01/16/2014 02/22/2015 PMB (postmenopausal bleeding) 06/20/2011 [place] favor benign 06/20/2011 03/24/2016 Diverticulosis 04/15/2011 03/24/2016 Last Assessment & Plan: Denies any abd pain, fevers. Denies any constipation or diarrhea. Diverticulitis 11/13/2009 04/15/2011 Overview: [facility] admission 11/02/09-11/05/09. Tx with cefixime, flagyl [...] uncontrolled levels of TC, LDLs. LDL Chol, [place] (mg/dL) Date Value 01/02/2011 190* Esophageal reflux 03/24/2016 Last Assessment & Plan: Notes generally well controlled with dietary monitoring. Denies any indigestion or heartburn. Occasional dysphagia- generally with liquids- intermittent. documented as of this encounter (statuses as of 01/15/2022) [facility] History of Past illness Narrative* Problem Noted Date Resolved Date Hematuria 01/16/2014 02/22/2015 PMB (postmenopausal bleeding) 06/20/2011 [place] favor benign 06/20/2011 03/24/2016 Diverticulosis 04/15/2011 03/24/2016 Last Assessment & Plan: Denies any abd pain, fevers. Denies any constipation or diarrhea. Diverticulitis 11/13/2009 04/15/2011 Overview: [facility] admission 11/02/09-11/05/09. Tx with cefixime, flagyl [...] uncontrolled levels of TC, LDLs. LDL Chol, [place] (mg/dL) Date Value 01/02/2011 190* Esophageal reflux 03/24/2016 Last Assessment & Plan: Notes generally well controlled with dietary monitoring. Denies any indigestion or heartburn. Occasional dysphagia- generally with liquids- intermittent. documented as of this encounter (statuses as of 01/20/2022) [facility] History of Past illness Narrative* Problem Noted Date Resolved Date Hematuria 01/16/2014 02/22/2015 PMB (postmenopausal bleeding) 06/20/2011 [place] favor benign 06/20/2011 03/24/2016 Diverticulosis 04/15/2011 03/24/2016 Last Assessment & Plan: Denies any abd pain, fevers. Denies any constipation or diarrhea. Diverticulitis 11/13/2009 04/15/2011 Overview: [facility] admission 11/02/09-11/05/09. Tx with cefixime, flagyl [...] of this encounter (statuses as of 02/18/2022) [facility] History of Past illness Narrative* Problem Noted Date Resolved Date Hematuria 01/16/2014 02/22/2015 PMB (postmenopausal bleeding) 06/20/2011 [place] favor benign 06/20/2011 03/24/2016 Diverticulosis 04/15/2011 03/24/2016 Last Assessment & Plan: Denies any abd pain, fevers. Denies any constipation or diarrhea. Diverticulitis 11/13/2009 04/15/2011 Overview: [facility] admission 11/02/09-11/05/09. Tx with cefixime, flagyl [...] of this encounter (statuses as of 03/27/2022) [facility] History of Past illness Narrative* Problem Noted Date Resolved Date Hematuria 01/16/2014 02/22/2015 PMB (postmenopausal bleeding) 06/20/2011 [place] favor benign 06/20/2011 03/24/2016 Diverticulosis 04/15/2011 03/24/2016 Last Assessment & Plan: Denies any abd pain, fevers. Denies any constipation or diarrhea. Diverticulitis 11/13/2009 04/15/2011 Overview: [facility] admission 11/02/09-11/05/09. Tx with cefixime, flagyl [...] of this encounter (statuses as of 04/11/2022) [facility] History of Past illness Narrative* Problem Noted Date Resolved Date Hematuria 01/16/2014 02/22/2015 PMB (postmenopausal bleeding) 06/20/2011 [place] favor benign 06/20/2011 03/24/2016 Diverticulosis 04/15/2011 03/24/2016 Last Assessment & Plan: Denies any abd pain, fevers. Denies any constipation or diarrhea. Diverticulitis 11/13/2009 04/15/2011 Overview: [facility] admission 11/02/09-11/05/09. Tx with cefixime, flagyl [...] uncontrolled levels of TC, LDLs. LDL Chol, [place] (mg/dL) Date Value 01/02/2011 190* Esophageal reflux 03/24/2016 Last Assessment & Plan: Notes generally well controlled with dietary monitoring. Denies any indigestion or heartburn. Occasional dysphagia- generally with liquids- intermittent. documented as of this encounter (statuses as of 05/07/2022) [facility] History of Past illness Narrative* Problem Noted Date Resolved Date Hematuria 01/16/2014 02/22/2015 PMB (postmenopausal bleeding) 06/20/2011 [place] favor benign 06/20/2011 03/24/2016 Diverticulosis 04/15/2011 03/24/2016 Last Assessment & Plan: Denies any abd pain, fevers. Denies any constipation or diarrhea. Diverticulitis 11/13/2009 04/15/2011 Overview: [facility] admission 11/02/09-11/05/09. Tx with cefixime, flagyl [...] uncontrolled levels of TC, LDLs. LDL Chol, [place] (mg/dL) Date Value 01/02/2011 190* Esophageal reflux 03/24/2016 Last Assessment & Plan: Notes generally well controlled with dietary monitoring. Denies any indigestion or heartburn. Occasional dysphagia- generally with liquids- intermittent. documented as of this encounter (statuses as of 05/17/2022) [facility] History of Past illness Narrative* Problem Noted Date Resolved Date Hematuria 01/16/2014 02/22/2015 PMB (postmenopausal bleeding) 06/20/2011 [place] favor benign 06/20/2011 03/24/2016 Diverticulosis 04/15/2011 03/24/2016 Last Assessment & Plan: Denies any abd pain, fevers. Denies any constipation or diarrhea. Diverticulitis 11/13/2009 04/15/2011 Overview: [facility] admission 11/02/09-11/05/09. Tx with cefixime, flagyl [...] of this encounter (statuses as of 05/25/2022) [facility] History of Past illness Narrative* Problem Noted Date Resolved Date Hematuria 01/16/2014 02/22/2015 PMB (postmenopausal bleeding) 06/20/2011 [place] favor benign 06/20/2011 03/24/2016 Diverticulosis 04/15/2011 03/24/2016 Last Assessment & Plan: Denies any abd pain, fevers. Denies any constipation or diarrhea. Diverticulitis 11/13/2009 04/15/2011 Overview: [facility] admission 11/02/09-11/05/09. Tx with cefixime, flagyl [...] of this encounter (statuses as of 05/28/2022) [facility] History of Past illness Narrative* Problem Noted Date Resolved Date Hematuria 01/16/2014 02/22/2015 PMB (postmenopausal bleeding) 06/20/2011 [place] favor benign 06/20/2011 03/24/2016 Diverticulosis 04/15/2011 03/24/2016 Last Assessment & Plan: Denies any abd pain, fevers. Denies any constipation or diarrhea. Diverticulitis 11/13/2009 04/15/2011 Overview: [facility] admission 11/02/09-11/05/09. Tx with cefixime, flagyl [...] uncontrolled levels of TC, LDLs. LDL Chol, [place] (mg/dL) Date Value 01/02/2011 190* Esophageal reflux 03/24/2016 Last Assessment & Plan: Notes generally well controlled with dietary monitoring. Denies any indigestion or heartburn. Occasional dysphagia- generally with liquids- intermittent. documented as of this encounter (statuses as of 07/17/2022) [facility] Diagnosis Myalgia- Primary Mylagia and myositis, unspecified Essential hypertension Unspecified essential hypertension Anxiety about health [facility]* Diagnosis Polymyalgia rheumatica (HCC)- Primary Polymyalgia rheumatica [facility]* Diagnosis Polymyalgia rheumatica (HCC)- Primary Polymyalgia rheumatica Essential hypertension Unspecified essential hypertension [facility] noteNo assessment information availableWLima [facility] Work Phone: Evaluation note* Diagnosis alf (current) use of systemic steroids [facility]* Diagnosis Left sided abdominal pain- Primary Abdominal pain, unspecified site Rib pain on left side Chest pain, unspecified Generalized abdominal tenderness without rebound tenderness Osteopenia, unspecified location [facility]* Diagnosis Synovitis of wrist- Primary Other tenosynovitis of hand and wrist Polymyalgia rheumatica (HCC) Polymyalgia rheumatica Essential hypertension Unspecified essential hypertension [facility]* Diagnosis Palpitations- Primary [facility]* Diagnosis PVD (peripheral vascular disease) (HCC)- Primary Peripheral vascular disease, unspecified [facility]* Diagnosis PVD (peripheral vascular disease) (HCC)- Primary Peripheral vascular disease, unspecified [facility]* Diagnosis Flu-like symptoms- Primary Other general symptoms Acute upper respiratory infection, unspecified Polymyalgia rheumatica (HCC) Polymyalgia rheumatica [facility]* Diagnosis Hypertension, essential- Primary Unspecified essential hypertension [facility]* Diagnosis Medicare annual wellness visit, subsequent- Primary Routine general medical examination at a health care facility Left foot pain Pain in limb [facility]* Diagnosis Pain in left foot- Primary Pain in limb [facility]* Diagnosis 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 of unspecified site Left foot pain Pain in limb [facility]* Diagnosis Skin tear of left forearm without complication, initial encounter- Primary [facility]* Diagnosis Diarrhea, unspecified type- Primary [facility]* Diagnosis Pain in left foot Pain in limb [facility]* Diagnosis Encounter for screening mammogram for malignant neoplasm of breast Other screening mammogram [facility]* Diagnosis Abnormal thyroid ultrasound Nonspecific abnormal results of thyroid function study [facility]* Diagnosis PVD (peripheral vascular disease) (HCC)- Primary Peripheral vascular disease, unspecified [facility]* Diagnosis Acute pain of right knee- Primary Essential hypertension Unspecified essential hypertension Multiple thyroid nodules Nontoxic multinodular goiter Mixed hyperlipidemia Aortic valve sclerosis Aortic valve disorders [facility]* Diagnosis Mixed hyperlipidemia- Primary [facility]* Diagnosis Dizziness- Primary Dizziness and giddiness Near syncope Syncope and collapse Impacted cerumen of both ears Impacted cerumen Mixed hyperlipidemia Aortic valve sclerosis Aortic valve disorders Acute pain of right knee [facility]* Diagnosis Dysphagia, unspecified type- Primary Aortic valve stenosis, mild Aortic valve disorders Mixed hyperlipidemia Encounter for screening mammogram for malignant neoplasm of breast Other screening mammogram [facility]* Diagnosis Dysphagia, unspecified type [facility]* Diagnosis TIA (transient ischemic attack)- Primary Unspecified transient cerebral ischemia Mixed hyperlipidemia Essential hypertension Unspecified essential hypertension Dysphagia, unspecified type Carotid atherosclerosis, bilateral Transient vision disturbance, bilateral Unspecified visual disturbance documented in this encounter [facility] note* Diagnosis Obesity, Class I, BMI 30-34.9- Primary Obesity, unspecified Dysphagia, unspecified type [facility] Diagnosis Ophthalmic migraine- Primary Other forms of migraine, without mention of intractable migraine without mention of status migrainosus Mixed hyperlipidemia Essential hypertension Unspecified essential hypertension Amaurosis fugax Transient arterial occlusion of retina documented in this encounter [facility] note* Diagnosis Dysphagia, unspecified type- Primary [facility]* Diagnosis Acute pain of right knee documented in this encounter [facility] note* Diagnosis Rib pain on left side Chest pain, unspecified [facility]* Diagnosis Medicare annual wellness visit, subsequent- Primary Routine general medical examination at a [facility] facility Mixed hyperlipidemia Screening for depression [facility]* Diagnosis Encounter for screening mammogram for malignant neoplasm of breast- Primary Other screening mammogram [facility]* Diagnosis Mixed hyperlipidemia documented in this encounter [facility] note* Diagnosis Constipation, unspecified constipation type- Primary Diverticulitis Diverticulitis of colon (without mention of hemorrhage) [facility]* Diagnosis Chronic pain of both knees- Primary Primary osteoarthritis of both knees Primary localized osteoarthrosis, lower leg [facility]* Diagnosis PVD (peripheral vascular disease)- Primary Peripheral vascular disease, unspecified [facility]* Diagnosis PVD (peripheral vascular disease)- Primary Peripheral vascular disease, unspecified [facility] Diagnosis Primary osteoarthritis of both knees Primary localized osteoarthrosis, lower leg Chronic pain of both knees Synovial cyst of popliteal space ([place]), left knee [facility]* Diagnosis Vertigo- Primary Dizziness and giddiness Visual disturbance Unspecified visual disturbance Balance problem Other symptoms involving nervous and musculoskeletal systems Personal history of transient ischemic attack (TIA), and cerebral infarction without residual deficits [facility]* Diagnosis Transient cerebral ischemia, unspecified type- Primary Vertigo Dizziness and giddiness Visual disturbance Unspecified visual disturbance Personal history of transient ischemic attack (TIA), and cerebral infarction without residual deficits Double vision Diplopia [facility]* Diagnosis SVT (supraventricular tachycardia) (HCC)- Primary Other specified cardiac dysrhythmias [facility] Additional Instructions Your work-up today showed no acute findings and therefore follow-up with your family doctor to discuss further outpatient testing and return to the ER should you have any further concernsWooMercy Health [facility] Work Phone: Hospital Discharge instructions Additional Instructions Your labs, chest x-ray, and EKG were all unremarkable. Your exam is normal. We do not have a specific cause for your symptoms. You do not need to be admitted to the hospital. Outpatient follow-up with your primary care physician.[facility] Work Phone: Hospital Discharge instructions Additional Instructions Please follow-up with either general surgery or GI as your esophagus may need to be dilated again. Return for any worsening of your symptoms.[facility] Work Phone: Hospital Discharge instructions Additional Instructions Follow-up with your primary care physician outpatient setting. Return with worsening symptoms or concerns. If your symptoms are still persistent on Thursday at your scheduled appoint with your doctor you can discuss with them at that point time about obtaining an ultrasound of your right leg. Use Tylenol for pain control.[facility] Work Phone: Hospital Discharge instructions Additional Instructions CT brain negative. Chest x-ray negative labs negative. Urine negative. Use Reglan as needed for recurrent symptoms. If worsening not controlled medications, or developing new symptoms, return immediately to the ED for reevaluation. Follow-up with your doctor.[facility] Work Phone: Reason for referral (narrative)* Diagnostic Procedure Only (Urgent) - Closed Specialty Diagnoses / Procedures Referred By Contac t Referred To Contact XR IMAGING Diagnoses Rib pain on left side Procedures XR RIBS/CHEST 3V AP RIB/OBLS/CXR LEFT RADEX RIBS UNI W/POSTEROANT CH MINIMUM 3 VIEWS Kai, Tamiko, CAR SALESMAN.AUDIO VISUAL COORDINATOR [address] [facility] [place] [address] Xr Imaging Referral ID Status Reason Start Date Expiration Date V isits Requested Visits Authorized [id number] Closed Auto-Generate d Referral 01/09/2022 02/08/2023 1 1 [facility] for referral (narrative)* Outpatient Procedure (Routine) - Pending Review Specialty Diagnoses / Procedures Referred By Contac t Referred To Contact [facility] Diagnoses PVD (peripheral vascular disease) (HCC) Procedures PVR LEG UMESH VAS LAB NON-INVASIVE PHYSIOLOGIC STUDY EXTREMITY 3 Kirsten Luna DO [address] [place] [address] [facility] [address] [address] Referral ID Status Reason Start Date Expiration Date Visits Requested Visits Authorized [id number] Pending Review Auto-Generat ed Referral 03/27/2022 03/26/2023 1 1 [facility] for referral (narrative)* Outpatient Procedure (Routine) - Authorized Specialty Diagnoses / Procedures Referred By Contac t Referred To Contact [facility] Diagnoses PVD (peripheral vascular disease) (HCC) Procedures PVR LEG UMESH VAS LAB NON-INVASIVE PHYSIOLOGIC STUDY EXTREMITY 3 Kirsten Luna DO [address] [place] [address] [address] Referral ID Status Reason Start Date Expiration Date Visits Requested Visits Authorized [id number] Authorized Auto-Generat ed Referral 04/03/2023 1 1 [facility] for referral (narrative)* Diagnostic Procedure Only (Routine) - Pending Review Specialty Diagnoses / Procedures Referred By Contac t Referred To Contact XR IMAGING Diagnoses Pain in left foot Procedures XR FOOT GENERAL 3V AP/LAT/OBL LEFT RADEX FOOT COMPLETE MINIMUM 3 VIEWS Akira Govea[address] [place] [address] Xr Imaging Referral ID Status Reason Start Date Expiration Date Visits Requested Visits Authorized [id number] Pending Review Auto-Generat ed Referral 12/15/2022 01/14/2024 1 1 [facility] for referral (narrative)* Diagnostic Procedure Only (Routine) - Closed Specialty Diagnoses / Procedures Referred By Contac t Referred To Contact XR IMAGING Diagnoses Pain in left foot Procedures XR FOOT GENERAL 3V AP/LAT/OBL LEFT RADEX FOOT COMPLETE MINIMUM 3 VIEWS Akira Govea [address] [facility] [place] [address] [place] [address] Referral ID Status Reason Start Date Expiration Date V isits Requested Visits Authorized [id number] Closed Auto-Generate d Referral 12/15/2022 01/14/2024 1 1 [facility] for referral (narrative)* Diagnostic Procedure Only (Routine) - Closed Specialty Diagnoses / Procedures Referred By Starr t Referred To Contact BR IMAGING Diagnoses Encounter for screening mammogram for malignant neoplasm of breast Procedures FLORI SCREENING SCREENING MAMMOGRAPHY BI 2-VIEW BREAST INC CAD Bennett Weir MD [address] [place] [address] [facility] [address] [place] [address] Referral ID Status Reason Start Date Expiration Date V isits Requested Visits Authorized [id number] Closed Auto-Generate d Referral 08/29/2022 09/28/2023 1 1 [facility] for referral (narrative)* Diagnostic Procedure Only (Routine) - Closed Specialty Diagnoses / Procedures Referred By Starr t Referred To Contact US IMAGING Diagnoses Abnormal thyroid ultrasound Procedures US THYROID/PARATHYROID ULTRASOUND OF THYROID Della Farooq MD [address] [facility] [place] [address] [place] [address] Referral ID Status Reason Start Date Expiration Date V isits Requested Visits Authorized [id number] Closed Auto-Generate d Referral 05/16/2021 06/15/2022 1 1 [facility] for referral (narrative)* Outpatient Procedure (Routine) - Authorized Specialty Diagnoses / Procedures Referred By Contac t Referred To [facility] Diagnoses PVD (peripheral vascular disease) ([facility]) Procedures PVR ANK/MINAYA/TOE UMESH VAS LAB NON-INVAS PHYSIOLOGIC STD EXTREMITY ART 2 LEVEL Kirsten Leon DO [address] [place] [id number] [facility] [place] [address] [place] [id number] Referral ID Status Reason Start Date Expiration Date Visits Requested Visits Authorized [id number] Authorized Auto-Generat ed Referral 03/31/2023 03/30/2024 1 1 [facility] for referral (narrative)* Diagnostic Procedure Only (Routine) - Closed Specialty Diagnoses / Procedures Referred By Contac t Referred To Contact XR IMAGING Diagnoses Acute pain of right knee Procedures XR KNEE GENERAL 4V AP BOTH/PA BOTH/LAT/MERC RIGHT RADIOLOGIC EXAM KNEE COMPLETE 4/MORE VIEWS Bennett Weir MD [address] [place] [address] Xr Imaging [facility]95 Referral ID Status Reason Start Date Expiration Date V isits Requested Visits Authorized [id number] Closed Auto-Generate d Referral 07/22/2023 08/20/2024 1 1 * Transition of Care (Routine) - Ref Not Required Specialty Diagnoses / Procedures Referred By Contsheila t Referred To Contact Diagnoses Dizziness Impacted cerumen of both ears Procedures CONSULT TO ENT Bennett Weir MD [address] [place] [address] Jamilah Palencia [address] [place] [address] Referral ID Status Reason Start Date Expiration Date Visits Requested Visits Authorized [id number] Ref Not Required PCP Requested Referral 07/22/2023 07/21/2024 1 1 * Outpatient Procedure (Routine) - Authorized Specialty Diagnoses / Procedures Referred By Starr mesa Referred To [facility] Diagnoses Dizziness Near syncope Procedures ECHO ECHO TTHRC R-T 2D W/WOM-MODE COMPL SPEC&COLR D Bennett Weir MD [address] [place] [address] [facility] [place] [address] [place] [address] Referral ID Status Reason Start Date Expiration Date Visits Requested Visits Authorized [id number] Authorized Auto-Generat ed Referral 07/22/2023 07/21/2024 1 1 [facility] for referral (narrative)* Diagnostic Procedure Only (Routine) - Authorized Specialty Diagnoses / Procedures Referred By Starr mesa Referred To Contact BR IMAGING Diagnoses Encounter for screening mammogram for malignant neoplasm of breast Procedures FLORI SCREENING SCREENING MAMMOGRAPHY BI 2-VIEW BREAST INC CAD Bennett Weir MD [address] [place] [address] [facility] Imaging [address] [place] [address] Referral ID Status Reason Start Date Expiration Date Visits Requested Visits Authorized [id number] Authorized Auto-Generat ed Referral 09/02/2023 10/01/2024 1 1 * Consult, Test, Treat (Routine) - Authorized Specialty Diagnoses / Procedures Referred By Starr t Referred To Contact General Surgery Diagnoses Dysphagia, unspecified type Procedures CONSULT TO GENERAL SURGERY OFFICE/OUTPATIENT [facility] 60 MINUTES Bennett Weir MD [address] [place] [address] Referral ID Status Reason Start Date Expiration Date Visits Requested Visits Authorized [id number] Authorized PCP Requested Referral 09/02/2023 09/01/2024 1 1 [facility] for referral (narrative)* Outpatient Procedure (Routine) - Pending Review Specialty Diagnoses / Procedures [facility] To Contact [facility] Diagnoses Dysphagia, unspecified type Procedures EGD DIAGNOSTIC ESOPHAGOGASTRODUODENOSC OPY TRANSORAL DIAGNOSTIC Silvino Mclaughlin MD [address] [place] [address] [place] [id number] Referral ID Status Reason Start Date Expiration Date Visits Requested Visits Authorized [id number] Pending Review Auto-Generat ed Referral 10/08/2023 10/07/2024 1 1 T [facility] for referral (narrative)* Outpatient Procedure (Routine) - Closed Specialty Diagnoses / Procedures [facility] To Contact [facility] Diagnoses Dysphagia, unspecified type Procedures EGD DIAGNOSTIC ESOPHAGOGASTRODUODENOSC OPY TRANSORAL DIAGNOSTIC Silvino Mclaughlin MD [address] [place] [address] [place] [id number] Referral ID Status Reason Start Date Expiration Date V isits Requested Visits Authorized [id number] Closed Auto-Generate d Referral 10/08/2023 10/07/2024 1 1 [facility] for referral (narrative)* Diagnostic Procedure Only (Routine) - Closed Specialty Diagnoses / Procedures Referred By Contac t Referred To Contact XR IMAGING Diagnoses Acute pain of right knee Procedures XR KNEE GENERAL 4V AP BOTH/PA BOTH/LAT/MERC RIGHT RADIOLOGIC EXAM KNEE COMPLETE 4/MORE VIEWS Bennett Weir MD [address] [place] [address] [place] [address] Referral ID Status Reason Start Date Expiration Date V isits Requested Visits Authorized [id number] Closed Auto-Generate d Referral 07/22/2023 08/20/2024 1 1 [facility] for referral (narrative)* Diagnostic Procedure Only (Urgent) - Closed Specialty Diagnoses / Procedures Referred By Contac t Referred To Contact XR IMAGING Diagnoses Rib pain on left side Procedures XR RIBS/CHEST 3V AP RIB/OBLS/CXR LEFT RADEX RIBS UNI W/POSTEROANT CH MINIMUM 3 VIEWS Tamiko Buchanan APRN.CNP [address] [place] [address] [place] [address] Referral ID Status Reason Start Date Expiration Date V isits Requested Visits Authorized [id number] Closed Auto-Generate d Referral 01/09/2022 02/08/2023 1 1 [facility] for referral (narrative)* Diagnostic Procedure Only (Routine) - Authorized Specialty Diagnoses / Procedures Referred By Contac t Referred To Contact BR IMAGING Diagnoses Encounter for screening mammogram for malignant neoplasm of breast Procedures FLORI SCREENING W ROBERT SCREENING DIGITAL BREAST TOMOSYNTHESIS BI SCREENING MAMMOGRAPHY BI 2-VIEW BREAST INC CAD Bennett Weir MD [address] [place] [address] [facility] [address] [place] [address] Referral ID Status Reason Start Date Expiration Date Visits Requested Visits Authorized [id number] Authorized Auto-Generat ed Referral 4 04/15/2025 1 1 T [facility] for referral (narrative)No reason for referral information available[facility] Phone: Reason for visit Narrative* Diagnostic Procedure Only (Routine) - Closed Specialty Diagnoses / Procedures Referred By Contac t Referred To Contact XR IMAGING Diagnoses Pain in left foot Procedures XR FOOT GENERAL 3V AP/LAT/OBL LEFT RADEX FOOT COMPLETE MINIMUM 3 VIEWS Akira Govea [address] [place] [address] [place] [address] Referral ID Status Reason Start Date Expiration Date V isits Requested Visits Authorized [id number] Closed Auto-Generate d Referral 12/15/2022 01/14/2024 1 1 [facility] for visit Narrative* Diagnostic Procedure Only (Routine) - Closed Specialty Diagnoses / Procedures Referred By Starr t Referred To Contact BR IMAGING Diagnoses Encounter for screening mammogram for malignant neoplasm of breast Procedures FLORI SCREENING SCREENING MAMMOGRAPHY BI 2-VIEW BREAST INC CAD Bennett Weir MD [address] [place] [address] [facility] [address] [place] [address] Referral ID Status Reason Start Date Expiration Date V isits Requested Visits Authorized [id number] Closed Auto-Generate d Referral 08/29/2022 09/28/2023 1 1 [facility] for visit Narrative* Outpatient Procedure (Routine) - Closed Specialty Diagnoses / Procedures Referred By Starr Referred To Contact [facility] Diagnoses Dysphagia, unspecified type Procedures EGD DIAGNOSTIC ESOPHAGOGASTRODUODENOSC OPY TRANSORAL DIAGNOSTIC Silvino Mclaughlin MD [address] [facility] [place] [address] [facility] [place] [address] [place] [address] Referral ID Status Reason Start Date Expiration Date V isits Requested Visits Authorized [id number] Closed Auto-Generate d Referral 10/08/2023 10/07/2024 1 1 [facility] for visit Narrative* Diagnostic Procedure Only (Routine) - Closed Specialty Diagnoses / Procedures Referred By Starr Referred To Contact XR IMAGING Diagnoses Acute pain of right knee Procedures XR KNEE GENERAL 4V AP BOTH/PA BOTH/LAT/MERC RIGHT RADIOLOGIC EXAM KNEE COMPLETE 4/MORE VIEWS Bennett Weir MD [address] [place] [address] [place] [address] Referral ID Status Reason Start Date Expiration Date V isits Requested Visits Authorized [id number] Closed Auto-Generate d Referral 07/22/2023 08/20/2024 1 1 [facility] for visit Narrative* Diagnostic Procedure Only (Urgent) - Closed Specialty Diagnoses / Procedures Referred By Contac t Referred To Contact XR IMAGING Diagnoses Rib pain on left side Procedures XR RIBS/CHEST 3V AP RIB/OBLS/CXR LEFT RADEX RIBS UNI W/POSTEROANT CH MINIMUM 3 VIEWS Tamiko Buchanan, CAR SALESMAN.AUDIO VISUAL COORDINATOR [address] [place] [address] [place] [address] Referral ID Status Reason Start Date Expiration Date V isits Requested Visits Authorized [id number] Closed Auto-Generate d Referral 01/09/2022 02/08/2023 1 1 [facility] for visit Narrative* Consult, Test, Treat (Routine) - Closed Specialty Diagnoses / Procedures Referred By Davisac t Referred To Contact Neurology Diagnoses Vertigo Visual disturbance Balance problem Personal history of transient ischemic attack (TIA), and cerebral infarction without residual deficits Procedures CONSULT TO NEUROLOGY OFFICE/OUTPATIENT [facility] 60 MINUTES Tamiko Buchanan M, CAR SALESMAN.AUDIO VISUAL COORDINATOR [address] [place] [address] Phone: tel: fax: Referral ID Status Reason Start Date Expiration Date V isits Requested Visits Authorized [id number] Closed PCP Requested Referral 10/04/2024 10/04/2025 1 1 [facility] Chief Complaint and Reason for Visit Chief Complaint N/V/D Chief Complaint N/V/D sob Chief Complaint FOREIGN BODY confusion Chief Complaint dizziness Chief Complaint dizziness dysphagia Chief Complaint Admit Date abd pain June 19, 2024 6 :58pm right knee pain August 19, 2024 12: 29am Chief Complaint Admit Date abd pain June 19, 2024 6 :58pm right knee pain August 19, 2024 12: 29am dizziness September 29, 2024 8:56am Chief Complaint Admit Date right knee pain August 19, 2024 12: 29am dizziness September 29, 2024 8:56am VERTIGO October 26, 2024 9:47a m Family History Relationship Condition Age at Onset Recorded Date/T miguel Unknown Family History?Heart Disease Unknown July 18, 2020 2:21am Family History?Heart Disease Unknown July 18, 2020 2:21am Relationship Condition Age at Onset Recorded Date/T miguel mother Cardiac disease Unknown father Cardiac disease Unknown Advance Directives Advance Directive Response Recorded Date/ Time Advance Directives No May 29, 2017 9:52pm Living Will Yes October 07, 2021 2 :17am Power of International Operations Manager No October 07, 2021 2:17am Advance Directive Response Recorded Date/ Time Advance Directives No May 29, 2017 9:52pm Living Will Yes October 10, 2021 8 :56am Power of International Operations Manager Yes October 10, 2021 8:56am Advance Directive Response Recorded Date/ Time Name of Medical Power of International Operations Manager maria a jacques August 04, 2022 5:04pm Name of Medical Power of International Operations Manager maria a November 21, 2022 11:11pm Advance Directives No May 29, 2017 9:52pm Living Will Yes November 21, 2022 11:11pm Power of International Operations Manager Yes November 21 11:11pm Advance Directive Response Recorded Date/ Time Advance Directives No May 29, 2017 8:52pm Living Will Yes July 20 1:12pm Power of International Operations Manager Yes July 20, 2023 1:12pm Name of Medical Power of International Operations Manager Lyndsay Bernstein July 20, 2023 1:12pm Advance Directive Response Recorded Date/ Time Name of Medical Power of International Operations Manager Lyndsay Bernstein July 20, 2023 2:12pm Name of Medical Power of International Operations Manager MARIA A DESOUZA August 14, 2023 12:56pm Advance Directives No May 29, 2017 9:52pm Living Will Yes August 14, 2023 12:56pm Power of International Operations Manager Yes August 13 12:56pm Advance Directive Response Recorded Date/ Time Living Will No June 19 8:01pm Do you have a Healthcare Power of International Operations Manager? No June 19, 2024 8:01pm Living Will Yes August 19, 2024 12:36am Do you have a Healthcare Power of International Operations Manager? Yes August 19, 2024 12:36am Name of Medical Power of International Operations Manager maria a August 19, 2024 12:36am Advance Directives No May 29, 2017 9:52pm Advance Directive Response Recorded Date/ Time Living Will No June 19 8:01pm Do you have a Healthcare Power of International Operations Manager? No June 19, 2024 8:01pm Living Will Yes August 19, 2024 12:36am Do you have a Healthcare Power of International Operations Manager? Yes August 19, 2024 12:36am Name of Medical Power of International Operations Manager maria a August 19, 2024 12:36am Do you have a Healthcare Power of International Operations Manager? Yes September 29, 2024 9:00am Advance Directives No May 29, 2017 9:52pm Advance Directive Response Recorded Date/ Time Living Will Yes August 19, 2024 12:36am Do you have a Healthcare Power of International Operations Manager? Yes August 19, 2024 12:36am Name of Medical Power of International Operations Manager maria a August 19, 2024 12:36am Do you have a Healthcare Power of International Operations Manager? Yes September 29, 2024 9:00am Advance Directives No May 29, 2017 9:52pm Reason for Referral Specialty Diagnoses / Procedures Referred By Contac t Referred To Contact Rheumatology Diagnoses Polymyalgia rheumatica (HCC) Synovitis of wrist Procedures CONSULT TO RHEUM/IMMUN DISEASE OFFICE/OUTPATIENT [facility] 60-74 MINUTES Bennett Weir MD [address] [place] [address] Referral ID Status Reason Start Date Expiration Date Visits Requested Visits Authorized [id number] Authorized PCP Requested Referral 01/20/2022 01/20/2023 1 1 Specialty Diagnoses / Procedures Referred By Contac t Referred To Contact Podiatry Diagnoses Left foot pain Procedures CONSULT TO PODIATRY OFFICE/OUTPATIENT [facility] 60-74 MINUTES Tamiko Quinn APRN.CNP [address] [place] [address] Referral ID Status Reason Start Date Expiration Date Visits Requested Visits Authorized [id number] Authorized PCP Requested Referral 11/21/2022 11/21/2023 1 1 Specialty Diagnoses / Procedures Referred By Contac t Referred To Contact MR IMAGING Diagnoses Amaurosis fugax Procedures MRA CAROTID WO IVCON MRA, NECK; W/O CONTRAST Bennett Weir MD [address] [facility] [place] [address] [place] [address] Referral ID Status Reason Start Date Expiration Date Visits Requested Visits Authorized [id number] Authorized Auto-Generat ed Referral 11/24/2023 12/23/2024 1 1 Health Concerns Infection Onset Date Last Indicated Resolved Time COVID-19 Confirmed 05/07/2022 05/07/2022 8:51 PM EST Summary Purpose Additional Source Comments Source Comments (unrecognize d section and content) In the event this informatio n is protected by the Federal Confidentiality of Alcohol and Drug Abuse Patient Records regulations: The Federal rules restrict any use of the information to criminally investigate or prosecute any alcohol or drug abuse patient.[facility]healthIn the event this information is protected by the Federal Confidentiality of Alcohol and Drug Abuse Patient Records regulations: The Federal rules restrict any use of the information to criminally investigate or prosecute any alcohol or drug abuse patient.[facility]healthIn the event this information is protected by the Federal Confidentiality of Alcohol and Drug Abuse Patient Records regulations: The Federal rules restrict any use of the information to criminally investigate or prosecute any alcohol or drug abuse patient.[facility]healthIn the event this information is protected by the Federal Confidentiality of Alcohol and Drug Abuse Patient Records regulations: The Federal rules restrict any use of the information to criminally investigate or prosecute any alcohol or drug abuse patient.[facility]healthIn the event this information is protected by the Federal Confidentiality of Alcohol and Drug Abuse Patient Records regulations: The Federal rules restrict any use of the information to criminally investigate or prosecute any alcohol or drug abuse patient.[facility]healthIn the event this information is protected by the Federal Confidentiality of Alcohol and Drug Abuse Patient Records regulations: The Federal rules restrict any use of the information to criminally investigate or prosecute any alcohol or drug abuse patient.[facility]healthIn the event this information is protected by the Federal Confidentiality of Alcohol and Drug Abuse Patient Records regulations: The Federal rules restrict any use of the information to criminally investigate or prosecute any alcohol or drug abuse patient.[facility]healthIn the event this information is protected by the Federal Confidentiality of Alcohol and Drug Abuse Patient Records regulations: The Federal rules restrict any use of the information to criminally investigate or prosecute any alcohol or drug abuse patient.[facility]healthIn the event this information is protected by the Federal Confidentiality of Alcohol and Drug Abuse Patient Records regulations: The Federal rules restrict any use of the information to criminally investigate or prosecute any alcohol or drug abuse patient.[facility]healthIn the event this information is protected by the Federal Confidentiality of Alcohol and Drug Abuse Patient Records regulations: The Federal rules restrict any use of the information to criminally investigate or prosecute any alcohol or drug abuse patient.[facility]healthIn the event this information is protected by the Federal Confidentiality of Alcohol and Drug Abuse Patient Records regulations: The Federal rules restrict any use of the information to criminally investigate or prosecute any alcohol or drug abuse patient.[facility]healthIn the event this information is protected by the Federal Confidentiality of Alcohol and Drug Abuse Patient Records regulations: The Federal rules restrict any use of the information to criminally investigate or prosecute any alcohol or drug abuse patient.[facility]healthIn the event this information is protected by the Federal Confidentiality of Alcohol and Drug Abuse Patient Records regulations: The Federal rules restrict any use of the information to criminally investigate or prosecute any alcohol or drug abuse patient.[facility]healthIn the event this information is protected by the Federal Confidentiality of Alcohol and Drug Abuse Patient Records regulations: The Federal rules restrict any use of the information to criminally investigate or prosecute any alcohol or drug abuse patient.[facility]healthIn the event this information is protected by the Federal Confidentiality of Alcohol and Drug Abuse Patient Records regulations: The Federal rules restrict any use of the information to criminally investigate or prosecute any alcohol or drug abuse patient.[facility]healthIn the event this information is protected by the Federal Confidentiality of Alcohol and Drug Abuse Patient Records regulations: The Federal rules restrict any use of the information to criminally investigate or prosecute any alcohol or drug abuse patient.[facility]healthIn the event this information is protected by the Federal Confidentiality of Alcohol and Drug Abuse Patient Records regulations: The Federal rules restrict any use of the information to criminally investigate or prosecute any alcohol or drug abuse patient.[facility]healthIn the event this information is protected by the Federal Confidentiality of Alcohol and Drug Abuse Patient Records regulations: The Federal rules restrict any use of the information to criminally investigate or prosecute any alcohol or drug abuse patient.[facility]healthIn the event this information is protected by the Federal Confidentiality of Alcohol and Drug Abuse Patient Records regulations: The Federal rules restrict any use of the information to criminally investigate or prosecute any alcohol or drug abuse patient.[facility]healthIn the event this information is protected by the Federal Confidentiality of Alcohol and Drug Abuse Patient Records regulations: The Federal rules restrict any use of the information to criminally investigate or prosecute any alcohol or drug abuse patient.[facility]healthIn the event this information is protected by the Federal Confidentiality of Alcohol and Drug Abuse Patient Records regulations: The Federal rules restrict any use of the information to criminally investigate or prosecute any alcohol or drug abuse patient.[facility]healthIn the event this information is protected by the Federal Confidentiality of Alcohol and Drug Abuse Patient Records regulations: The Federal rules restrict any use of the information to criminally investigate or prosecute any alcohol or drug abuse patient.[facility]healthIn the event this information is protected by the Federal Confidentiality of Alcohol and Drug Abuse Patient Records regulations: The Federal rules restrict any use of the information to criminally investigate or prosecute any alcohol or drug abuse patient.[facility]healthIn the event this information is protected by the Federal Confidentiality of Alcohol and Drug Abuse Patient Records regulations: The Federal rules restrict any use of the information to criminally investigate or prosecute any alcohol or drug abuse patient.[facility]healthIn the event this information is protected by the Federal Confidentiality of Alcohol and Drug Abuse Patient Records regulations: The Federal rules restrict any use of the information to criminally investigate or prosecute any alcohol or drug abuse patient.[facility]healthIn the event this information is protected by the Federal Confidentiality of Alcohol and Drug Abuse Patient Records regulations: The Federal rules restrict any use of the information to criminally investigate or prosecute any alcohol or drug abuse patient.[facility]healthIn the event this information is protected by the Federal Confidentiality of Alcohol and Drug Abuse Patient Records regulations: The Federal rules restrict any use of the information to criminally investigate or prosecute any alcohol or drug abuse patient.[facility]healthIn the event this information is protected by the Federal Confidentiality of Alcohol and Drug Abuse Patient Records regulations: The Federal rules restrict any use of the information to criminally investigate or prosecute any alcohol or drug abuse patient.[facility]healthIn the event this information is protected by the Federal Confidentiality of Alcohol and Drug Abuse Patient Records regulations: The Federal rules restrict any use of the information to criminally investigate or prosecute any alcohol or drug abuse patient.[facility]healthIn the event this information is protected by the Federal Confidentiality of Alcohol and Drug Abuse Patient Records regulations: The Federal rules restrict any use of the information to criminally investigate or prosecute any alcohol or drug abuse patient.[facility]healthIn the event this information is protected by the Federal Confidentiality of Alcohol and Drug Abuse Patient Records regulations: The Federal rules restrict any use of the information to criminally investigate or prosecute any alcohol or drug abuse patient.[facility]healthIn the event this information is protected by the Federal Confidentiality of Alcohol and Drug Abuse Patient Records regulations: The Federal rules restrict any use of the information to criminally investigate or prosecute any alcohol or drug abuse patient.[facility]healthIn the event this information is protected by the Federal Confidentiality of Alcohol and Drug Abuse Patient Records regulations: The Federal rules restrict any use of the information to criminally investigate or prosecute any alcohol or drug abuse patient.[facility]healthIn the event this information is protected by the Federal Confidentiality of Alcohol and Drug Abuse Patient Records regulations: The Federal rules restrict any use of the information to criminally investigate or prosecute any alcohol or drug abuse patient.[facility]healthIn the event this information is protected by the Federal Confidentiality of Alcohol and Drug Abuse Patient Records regulations: The Federal rules restrict any use of the information to criminally investigate or prosecute any alcohol or drug abuse patient.[facility]healthIn the event this information is protected by the Federal Confidentiality of Alcohol and Drug Abuse Patient Records regulations: The Federal rules restrict any use of the information to criminally investigate or prosecute any alcohol or drug abuse patient.[facility]healthIn the event this information is protected by the Federal Confidentiality of Alcohol and Drug Abuse Patient Records regulations: The Federal rules restrict any use of the information to criminally investigate or prosecute any alcohol or drug abuse patient.[facility]healthIn the event this information is protected by the Federal Confidentiality of Alcohol and Drug Abuse Patient Records regulations: The Federal rules restrict any use of the information to criminally investigate or prosecute any alcohol or drug abuse patient.[facility]healthIn the event this information is protected by the Federal Confidentiality of Alcohol and Drug Abuse Patient Records regulations: The Federal rules restrict any use of the information to criminally investigate or prosecute any alcohol or drug abuse patient.[facility]healthIn the event this information is protected by the Federal Confidentiality of Alcohol and Drug Abuse Patient Records regulations: The Federal rules restrict any use of the information to criminally investigate or prosecute any alcohol or drug abuse patient.[facility]healthIn the event this information is protected by the Federal Confidentiality of Alcohol and Drug Abuse Patient Records regulations: The Federal rules restrict any use of the information to criminally investigate or prosecute any alcohol or drug abuse patient.[facility]healthIn the event this information is protected by the Federal Confidentiality of Alcohol and Drug Abuse Patient Records regulations: The Federal rules restrict any use of the information to criminally investigate or prosecute any alcohol or drug abuse patient.[facility]healthIn the event this information is protected by the Federal Confidentiality of Alcohol and Drug Abuse Patient Records regulations: The Federal rules restrict any use of the information to criminally investigate or prosecute any alcohol or drug abuse patient.[facility]healthIn the event this information is protected by the Federal Confidentiality of Alcohol and Drug Abuse Patient Records regulations: The Federal rules restrict any use of the information to criminally investigate or prosecute any alcohol or drug abuse patient.[facility]healthIn the event this information is protected by the Federal Confidentiality of Alcohol and Drug Abuse Patient Records regulations: The Federal rules restrict any use of the information to criminally investigate or prosecute any alcohol or drug abuse patient.[facility]healthIn the event this information is protected by the Federal Confidentiality of Alcohol and Drug Abuse Patient Records regulations: The Federal rules restrict any use of the information to criminally investigate or prosecute any alcohol or drug abuse patient.[facility]healthIn the event this information is protected by the Federal Confidentiality of Alcohol and Drug Abuse Patient Records regulations: The Federal rules restrict any use of the information to criminally investigate or prosecute any alcohol or drug abuse patient.[facility]healthIn the event this information is protected by the Federal Confidentiality of Alcohol and Drug Abuse Patient Records regulations: The Federal rules restrict any use of the information to criminally investigate or prosecute any alcohol or drug abuse patient.[facility]healthIn the event this information is protected by the Federal Confidentiality of Alcohol and Drug Abuse Patient Records regulations: The Federal rules restrict any use of the information to criminally investigate or prosecute any alcohol or drug abuse patient.[facility]healthIn the event this information is protected by the Federal Confidentiality of Alcohol and Drug Abuse Patient Records regulations: The Federal rules restrict any use of the information to criminally investigate or prosecute any alcohol or drug abuse patient.[facility]healthIn the event this information is protected by the Federal Confidentiality of Alcohol and Drug Abuse Patient Records regulations: The Federal rules restrict any use of the information to criminally investigate or prosecute any alcohol or drug abuse patient.[facility]healthIn the event this information is protected by the Federal Confidentiality of Alcohol and Drug Abuse Patient Records regulations: The Federal rules restrict any use of the information to criminally investigate or prosecute any alcohol or drug abuse patient.[facility]healthIn the event this information is protected by the Federal Confidentiality of Alcohol and Drug Abuse Patient Records regulations: The Federal rules restrict any use of the information to criminally investigate or prosecute any alcohol or drug abuse patient.[facility]healthIn the event this information is protected by the Federal Confidentiality of Alcohol and Drug Abuse Patient Records regulations: The Federal rules restrict any use of the information to criminally investigate or prosecute any alcohol or drug abuse patient.[facility]healthIn the event this information is protected by the Federal Confidentiality of Alcohol and Drug Abuse Patient Records regulations: The Federal rules restrict any use of the information to criminally investigate or prosecute any alcohol or drug abuse patient.[facility]healthIn the event this information is protected by the Federal Confidentiality of Alcohol and Drug Abuse Patient Records regulations: The Federal rules restrict any use of the information to criminally investigate or prosecute any alcohol or drug abuse patient.[facility]healthIn the event this information is protected by the Federal Confidentiality of Alcohol and Drug Abuse Patient Records regulations: The Federal rules restrict any use of the information to criminally investigate or prosecute any alcohol or drug abuse patient.[facility]healthIn the event this information is protected by the Federal Confidentiality of Alcohol and Drug Abuse Patient Records regulations: The Federal rules restrict any use of the information to criminally investigate or prosecute any alcohol or drug abuse patient.[facility]healthIn the event this information is protected by the Federal Confidentiality of Alcohol and Drug Abuse Patient Records regulations: The Federal rules restrict any use of the information to criminally investigate or prosecute any alcohol or drug abuse patient.[facility]healthIn the event this information is protected by the Federal Confidentiality of Alcohol and Drug Abuse Patient Records regulations: The Federal rules restrict any use of the information to criminally investigate or prosecute any alcohol or drug abuse patient.[facility]healthIn the event this information is protected by the Federal Confidentiality of Alcohol and Drug Abuse Patient Records regulations: The Federal rules restrict any use of the information to criminally investigate or prosecute any alcohol or drug abuse patient.[facility]healthIn the event this information is protected by the Federal Confidentiality of Alcohol and Drug Abuse Patient Records regulations: The Federal rules restrict any use of the information to criminally investigate or prosecute any alcohol or drug abuse patient.[facility]healthIn the event this information is protected by the Federal Confidentiality of Alcohol and Drug Abuse Patient Records regulations: The Federal rules restrict any use of the information to criminally investigate or prosecute any alcohol or drug abuse patient.[facility]healthIn the event this information is protected by the Federal Confidentiality of Alcohol and Drug Abuse Patient Records regulations: The Federal rules restrict any use of the information to criminally investigate or prosecute any alcohol or drug abuse patient.[facility]healthIn the event this information is protected by the Federal Confidentiality of Alcohol and Drug Abuse Patient Records regulations: The Federal rules restrict any use of the information to criminally investigate or prosecute any alcohol or drug abuse patient.[facility]healthIn the event this information is protected by the Federal Confidentiality of Alcohol and Drug Abuse Patient Records regulations: The Federal rules restrict any use of the information to criminally investigate or prosecute any alcohol or drug abuse patient.[facility]healthIn the event this information is protected by the Federal Confidentiality of Alcohol and Drug Abuse Patient Records regulations: The Federal rules restrict any use of the information to criminally investigate or prosecute any alcohol or drug abuse patient.[facility]healthIn the event this information is protected by the Federal Confidentiality of Alcohol and Drug Abuse Patient Records regulations: The Federal rules restrict any use of the information to criminally investigate or prosecute any alcohol or drug abuse patient.[facility]healthIn the event this information is protected by the Federal Confidentiality of Alcohol and Drug Abuse Patient Records regulations: The Federal rules restrict any use of the information to criminally investigate or prosecute any alcohol or drug abuse patient.[facility]healthIn the event this information is protected by the Federal Confidentiality of Alcohol and Drug Abuse Patient Records regulations: The Federal rules restrict any use of the information to criminally investigate or prosecute any alcohol or drug abuse patient.[facility]healthIn the event this information is protected by the Federal Confidentiality of Alcohol and Drug Abuse Patient Records regulations: The Federal rules restrict any use of the information to criminally investigate or prosecute any alcohol or drug abuse patient.[facility]healthIn the event this information is protected by the Federal Confidentiality of Alcohol and Drug Abuse Patient Records regulations: The Federal rules restrict any use of the information to criminally investigate or prosecute any alcohol or drug abuse patient.[facility]healthIn the event this information is protected by the Federal Confidentiality of Alcohol and Drug Abuse Patient Records regulations: The Federal rules restrict any use of the information to criminally investigate or prosecute any alcohol or drug abuse patient.[facility]healthIn the event this information is protected by the Federal Confidentiality of Alcohol and Drug Abuse Patient Records regulations: The Federal rules restrict any use of the information to criminally investigate or prosecute any alcohol or drug abuse patient.[facility]healthIn the event this information is protected by the Federal Confidentiality of Alcohol and Drug Abuse Patient Records regulations: The Federal rules restrict any use of the information to criminally investigate or prosecute any alcohol or drug abuse patient.[facility]healthIn the event this information is protected by the Federal Confidentiality of Alcohol and Drug Abuse Patient Records regulations: The Federal rules restrict any use of the information to criminally investigate or prosecute any alcohol or drug abuse patient.[facility]healthIn the event this information is protected by the Federal Confidentiality of Alcohol and Drug Abuse Patient Records regulations: The Federal rules restrict any use of the information to criminally investigate or prosecute any alcohol or drug abuse patient.[facility]healthIn the event this information is protected by the Federal Confidentiality of Alcohol and Drug Abuse Patient Records regulations: The Federal rules restrict any use of the information to criminally investigate or prosecute any alcohol or drug abuse patient.[facility]healthIn the event this information is protected by the Federal Confidentiality of Alcohol and Drug Abuse Patient Records regulations: The Federal rules restrict any use of the information to criminally investigate or prosecute any alcohol or drug abuse patient.[facility]healthIn the event this information is protected by the Federal Confidentiality of Alcohol and Drug Abuse Patient Records regulations: The Federal rules restrict any use of the information to criminally investigate or prosecute any alcohol or drug abuse patient.[facility]healthIn the event this information is protected by the Federal Confidentiality of Alcohol and Drug Abuse Patient Records regulations: The Federal rules restrict any use of the information to criminally investigate or prosecute any alcohol or drug abuse patient.[facility]healthIn the event this information is protected by the Federal Confidentiality of Alcohol and Drug Abuse Patient Records regulations: The Federal rules restrict any use of the information to criminally investigate or prosecute any alcohol or drug abuse patient.[facility]healthIn the event this information is protected by the Federal Confidentiality of Alcohol and Drug Abuse Patient Records regulations: The Federal rules restrict any use of the information to criminally investigate or prosecute any alcohol or drug abuse patient.[facility] Care Teams (unrecognized sec tion and content) Tab Machine Operator Relationship Specialty Start Date End Date Bennett Weir MD [address] [place] [address] PCP - General Internal Medicine 02/01/16 Tab Machine Operator Relationship Specialty Start Date End Date Bennett Weir MD [address] [place] [address] PCP - General Internal Medicine 02/01/16 Tab Machine Operator Relationship Specialty Start Date End Date Bennett Weir MD [address] [place] [address] PCP - General Internal Medicine 02/01/16 Tab Machine Operator Relationship Specialty Start Date End Date Bennett Weir MD [address] [place] [address] PCP - General Internal Medicine 02/01/16 Tab Machine Operator Relationship Specialty Start Date End Date Bennett Weir MD [address] [place] [address] PCP - General Internal Medicine 02/01/16 Tab Machine Operator Relationship Specialty Start Date End Date Bennett Weir MD [address] [place] [address] PCP - General Internal Medicine 02/01/16 Tab Machine Operator Relationship Specialty Start Date End Date Bennett Weir MD [address] [place] [address] PCP - General Internal Medicine 02/01/16 Tab Machine Operator Relationship Specialty Start Date End Date Bennett Weir MD [address] [place] [address] PCP - General Internal Medicine 02/01/16 Tab Machine Operator Relationship Specialty Start Date End Date Bennett Weir MD [address] [place] [address] PCP - General Internal Medicine 02/01/16 Tab Machine Operator Relationship Specialty Start Date End Date Bennett Weir MD [address] [place] [address] PCP - General Internal Medicine 02/01/16 Tab Machine Operator Relationship Specialty Start Date End Date Bennett Weir MD [address] [place] [address] PCP - General Internal Medicine 02/01/16 Tab Machine Operator Relationship Specialty Start Date End Date Bennett Weir MD [address] [place] [address] PCP - General Internal Medicine 02/01/16 Tab Machine Operator Relationship Specialty Start Date End Date Bennett Weir MD [address] [place] [address] PCP - General Internal Medicine 02/01/16 Tab Machine Operator Relationship Specialty Start Date End Date Bennett Weir MD [address] [place] [address] PCP - General Internal Medicine 02/01/16 Tab Machine Operator Relationship Specialty Start Date End Date Bennett Weir MD [address] [place] [address] PCP - General Internal Medicine 02/01/16 Brina Kapoor, RN [address] [place] [address] Magento Developer 05/16/22 Johnna Gomez RN [address] [place] [address] Magento Developer 05/16/22 Tab Machine Operator Relationship Specialty Start Date End Date Bennett Weir MD [address] [facility] [place] [address] PCP - General Internal Medicine 02/01/16 Johnna Gomez, RONEY [address] [place] [address] Magento Developer 05/16/22 Tab Machine Operator Relationship Specialty Start Date End Date Bennett Weir MD [address] [facility] [place] [address] PCP - General Internal Medicine 02/01/16 Johnna Gomez, RN [address] [place] [address] Magento Developer 05/16/22 Tab Machine Operator Relationship Specialty Start Date End Date Bennett Weir MD [address] [facility] [address] PCP - General Internal Medicine 02/01/16 Johnna Gomez, RN [address] [place] [address] Magento Developer 05/16/22 Tab Machine Operator Relationship Specialty Start Date End Date Bennett Weir MD [address] [place] [address] PCP - General Internal Medicine 02/01/16 Johnna Gomez RN [address] [place] [address] Magento Developer 05/16/22 Tab Machine Operator Relationship Specialty Start Date End Date Bennett Weir MD [address] [facility] [address] PCP - General Internal Medicine 02/01/16 Johnna Gomez, RN [address] [place] [address] Magento Developer 05/16/22 Tab Machine Operator Relationship Specialty Start Date End Date Bennett Weir MD [address] [facility] [address] PCP - General Internal Medicine 02/01/16 Gay Diaz RN [address] [place] [address] Magento Developer 09/19/22 Tab Machine Operator Relationship Specialty Start Date End Date Bennett Weir MD [address] [facility] [address] PCP - General Internal Medicine 02/01/16 Gay Diaz RN [address] [facility], [place] [id number] Magento Developer 09/19/22 Tab Machine Operator Relationship Specialty Start Date End Date Bennett Weir MD [address] [place] [address] PCP - General Internal Medicine 02/01/16 Gay Diaz RN [address] [facility], [place] [id number] Magento Developer 09/19/22 Team Status: Active Member Role Status Dates Dr. Bennett Weir MD Family Provider Active Dr. Bennett Weir MD Primary Care Provider Active Team Status: Inactive Member Role Status Dates Dr. Bennett Weir MD Primary Care Provider Active Dr. Nick Cunha MD Attending Provider, Emergency Provider Active Team Status: Inactive Member Role Status Dates Dr. Bennett Weir MD Primary Care Provider Active Dr. Nick Murphy DO Emergency Provider Active Tab Machine Operator Relationship Specialty Start Date End Date Bennett Weir MD [address] [facility] [place] [address] PCP - General Internal Medicine 02/01/16 Gay Diaz, RONEY [address] [place], [place] [id number] Magento Developer 09/19/22 Tab Machine Operator Relationship Specialty Start Date End Date Bennett Weir MD [address] [facility] [place] [address] PCP - General Internal Medicine 02/01/16 Gay Diaz, RN [address] [place] [address] Magento Developer 09/19/22 Tab Machine Operator Relationship Specialty Start Date End Date Bennett Weir MD [address] [facility] [place] [address] PCP - General Internal Medicine 02/01/16 Gay Diaz, RN [address] [facility], [place] [id number] Magento Developer 09/19/22 Tab Machine Operator Relationship Specialty Start Date End Date Bennett Weir MD [address] [facility] [place] [address] PCP - General Internal Medicine 02/01/16 Johnna Gomez, RN [address] [place] [address] Magento Developer 05/16/2208/24 Gay Diaz, RN [address] [facility], [place] [id number] Magento Developer 09/19/22 Tab Machine Operator Relationship Specialty Start Date End Date Bennett Weir MD [address] [place] [address] PCP - General Internal Medicine 02/01/16 Gay Diaz RN [address] [place] [address] Magento Developer 09/19/22 Tab Machine Operator Relationship Specialty Start Date End Date Bennett Weir MD [address] [place] [address] PCP - General Internal Medicine 02/01/16 Gay Diaz, RN [address] [facility], [place] [id number] Magento Developer 09/19/22 Tab Machine Operator Relationship Specialty Start Date End Date Bennett Weir MD [address] [place] [address] PCP - General Internal Medicine 02/01/16 Gay Diaz, RN [address] [facility], [place] [id number] Magento Developer 09/19/22 Tab Machine Operator Relationship Specialty Start Date End Date Bennett Weir MD [address] [place] [address] PCP - General Internal Medicine 02/01/16 Johnna Gomez, RN [address] [facility] [place] [address] Magento Developer 05/16/2208/24 Tab Machine Operator Relationship Specialty Start Date End Date Bennett Weir MD [address] [place] [address] PCP - General Internal Medicine 02/01/16 Johnna Gomez, RN [address] [facility] [place] [address] Magento Developer 05/16/2208/24 Tab Machine Operator Relationship Specialty Start Date End Date Bennett Weir MD [address] [place] [address] PCP - General Internal Medicine 02/01/16 Gay Diaz, RN [address] [place] [address] Magento Developer 09/19/22 Tab Machine Operator Relationship Specialty Start Date End Date Bennett Weir MD [address] [place] [address] PCP - General Internal Medicine 02/01/16 Gay Diaz RN [address] [facility], [place] [id number] Magento Developer 09/19/22 Tab Machine Operator Relationship Specialty Start Date End Date Bennett Weir MD [address] [place] [address] PCP - General Internal Medicine 02/01/16 Gay Diaz, RN [address] [place] [address] Magento Developer 09/19/22 Tab Machine Operator Relationship Specialty Start Date End Date Bennett Weir MD [address] [place] [address] PCP - General Internal Medicine 02/01/16 Stacy Mcduffie, RN [address] [place] [address] Magento Developer [facility] 06/19/23 Tab Machine Operator Relationship Specialty Start Date End Date Bennett Weir MD [address] [place] [address] PCP - General Internal Medicine 02/01/16 Stacy Mcduffie, RONEY [address] [place] [address] Magento Developer [facility] 06/19/23 Team Status: Inactive Member Role Status Dates Dr. Bennett Weir MD Primary Care Provider Active Dr. Rajan Hubbard MD Emergency Provider Active Tab Machine Operator Relationship Specialty Start Date End Date Bennett Weir MD [address] [place] [address] PCP - General Internal Medicine 02/01/16 Stacy Mcduffie, RONEY [address] [place] [address] Magento Developer [facility] 06/19/23 Tab Machine Operator Relationship Specialty Start Date End Date Bennett Weir MD [address] [place] [address] PCP - General Internal Medicine 02/01/16 Stacy Mcduffie, RN [address] [place] [address] Magento Developer [facility] 06/19/23 Team Status: Inactive Member Role Status Dates Dr. Bennett Weir MD Primary Care Provider Active Dr. Rajan Hubbard MD Attending Provider, Emergency Pro vider Active Tab Machine Operator Relationship Specialty Start Date End Date Bennett Weir MD [address] [place] [address] PCP - General Internal Medicine 02/01/16 Stacy Mcduffie, RN [address] [place] [address] Magento Developer [facility] 06/19/23 Tab Machine Operator Relationship Specialty Start Date End Date Bennett Weir MD [address] [place] [address] PCP - General Internal Medicine 02/01/16 Stacy Mcduffie, RN [address] [place] [address] Magento Developer [facility] 06/19/23 Tab Machine Operator Relationship Specialty Start Date End Date Bennett Weir MD [address] [place] [address] PCP - General Internal Medicine 02/01/16 Stacy Mcduffie, RN [address] [place] [address] Magento Developer [facility] 06/19/23 Tab Machine Operator Relationship Specialty Start Date End Date Bennett Weir MD [address] [place] [address] PCP - General Internal Medicine 02/01/16 Stacy Mcduffie, RN [address] [place] [address] Magento Developer Family [facility] 06/19/23 Tab Machine Operator Relationship Specialty Start Date End Date Bennett Weir MD [address] [place] [address] PCP - General Internal Medicine 02/01/16 Stacy Mcduffie, RN [address] [place] [address] Magento Developer Family [facility] 06/19/23 Tab Machine Operator Relationship Specialty Start Date End Date Bennett Weir MD [address] [place] [address] PCP - General Internal Medicine 02/01/16 Stacy Mcduffie, RN [address] [place] [address] Magento Developer [facility] [facility] 06/19/23 Tab Machine Operator Relationship Specialty Start Date End Date Bennett Weir MD [address] [facility] [place] [address] PCP - General Internal Medicine 02/01/16 Stacy Mcduffie, RONEY [address] [place] [address] Magento Developer [facility] 06/19/23 Tab Machine Operator Relationship Specialty Start Date End Date Bennett Weir MD [address] [facility] [place] [address] PCP - General Internal Medicine 02/01/16 Stacy Mcduffie, RONEY [address] [place] [address] Magento Developer [facility] 06/19/23 Tab Machine Operator Relationship Specialty Start Date End Date Bennett Weir MD [address] [facility] [place] [address] PCP - General Internal Medicine 02/01/16 Stacy Mcduffie, RONEY [address] [place] [address] Magento Developer [facility] 06/19/23 Tab Machine Operator Relationship Specialty Start Date End Date Bennett Weir MD [address] [facility] [place] [address] PCP - General Internal Medicine 02/01/16 Stacy Mcduffie, RN [address] [place] [address] Magento Developer [facility] 06/19/23 Tab Machine Operator Relationship Specialty Start Date End Date Bennett Weir MD [address] [facility] [place] [address] PCP - General Internal Medicine 02/01/16 Stacy Mcduffie, RN [address] [place] [address] Magento Developer [facility] 06/19/23 Tab Machine Operator Relationship Specialty Start Date End Date Bennett Weir MD [address] [facility] [place] [address] PCP - General Internal Medicine 02/01/16 Stacy Mcduffie, RN [address] [place] [address] Magento Developer [facility] 06/19/23 Tab Machine Operator Relationship Specialty Start Date End Date Bennett Weir MD [address] [place] [place] [address] PCP - General Internal Medicine 02/01/16 Stacy Mcduffie, RN [address] [place] [address] Magento Developer [facility] 06/19/2312/24 Tab Machine Operator Relationship Specialty Start Date End Date Bennett Weir MD [address] [facility] [place] [address] PCP - General Internal Medicine 02/01/16 Katia Fall, RN [address] [place] [address] Magento Developer 01/22/24 Tab Machine Operator Relationship Specialty Start Date End Date Bennett Weir MD [address] [place] [address] PCP - General Internal Medicine 02/01/16 Tab Machine Operator Relationship Specialty Start Date End Date Bennett Weir MD [address] [place] [address] PCP - General Internal Medicine 02/01/16 Katia Fall RN [address] [place] [address] Magento Developer 01/22/24 Tab Machine Operator Relationship Specialty Start Date End Date Bennett Weir MD [address] [place] [address] PCP - General Internal Medicine 02/01/16 Katia Fall RN [address] [place] [address] Magento Developer 01/22/24 Tab Machine Operator Relationship Specialty Start Date End Date Bennett Weir MD [address] [place] [place] [address] PCP - General Internal Medicine 02/01/16 Katia Fall, RN [address] [place] [address] Magento Developer 01/22/24 Tab Machine Operator Relationship Specialty Start Date End Date Bennett Weir MD [address] [place] [address] PCP - General Internal Medicine 02/01/16 Katia Fall RN [address] [place] [address] Magento Developer 01/22/2405/02/24 Tamiko Buchanan, CAR SALESMAN.AUDIO VISUAL COORDINATOR [address] [place] [place] [address] Faculty Support Coordinator Internal Medicine 05/02/24 Tab Machine Operator Relationship Specialty Start Date End Date Bennett Weir MD [address] [place] [address] PCP - General Internal Medicine 02/01/16 Tamiko Buchanan, CAR SALESMAN.AUDIO VISUAL COORDINATOR [address] [place] [address] Faculty Support Coordinator Internal Medicine 05/02/24 Tab Machine Operator Relationship Specialty Start Date End Date Bennett Weir MD [address] [place] [address] PCP - General Internal Medicine 02/01/16 Katia Fall RN [address] [place] [address] Magento Developer 01/22/2405/02/24 Tamiko Buchanan, CAR SALESMAN.AUDIO VISUAL COORDINATOR [address] [facility] [place] [address] Faculty Support Coordinator Internal Medicine 05/02/24 Tab Machine Operator Relationship Specialty Start Date End Date Bennett Weir MD [address] [place] [address] PCP - General Internal Medicine 02/01/16 Tamiko Buchanan, CAR SALESMAN.AUDIO VISUAL COORDINATOR [address] [facility] [address] Faculty Support Coordinator Internal Medicine 05/02/24 Team Status: Active Member Role Status Dates Dr. Bennett Weir MD Primary Care Provider Active Team Status: Inactive Member Role Status Dates Dr. Bennett Weir MD Primary Care Provider Active Start: June 19, 2024 End: June 19, 2024 Dr. Scar Hernandez DO Attending Provider Active Start: June 19, 2024 End: June 19, 2024 Dr. Scar Hernandez DO Emergency Provider Active Start: June 19, 2024 End: June 19, 2024 Team Status: Inactive Member Role Status Dates Dr. Bennett Weir MD Primary Care Provider Active Start: August 19, 2024 End: August 19, 2024 Dr. Ky Ruiz DO Emergency Provider Active Start: August 19, 2024 End: August 19, 2024 Tab Machine Operator Relationship Specialty Start Date End Date Bennett Weir MD [address] [place] [address] PCP - General Internal Medicine 02/01/16 Tamiko Buchanan, CAR SALESMAN.AUDIO VISUAL COORDINATOR [address] [place] [address] Faculty Support Coordinator Internal Medicine 05/02/24 Tab Machine Operator Relationship Specialty Start Date End Date Bennett Weir MD [address] [place] [address] PCP - General Internal Medicine 02/01/16 Tamiko Buchanan, CAR SALESMAN.AUDIO VISUAL COORDINATOR [address] [place] [address] Faculty Support Coordinator Internal Medicine 05/02/24 Tab Machine Operator Relationship Specialty Start Date End Date Bennett Weir MD [address] [place] [address] PCP - General Internal Medicine 02/01/16 Tamiko Buchanan, CAR SALESMAN.AUDIO VISUAL COORDINATOR [address] [place] [address] Faculty Support Coordinator Internal Medicine 05/02/24 Tab Machine Operator Relationship Specialty Start Date End Date Bennett Weir MD [address] [facility] [place] [address] PCP - General Internal Medicine 02/01/16 Tamiko Buchanan, CAR SALESMAN.AUDIO VISUAL COORDINATOR [address] [place] [address] Faculty Support Coordinator Internal Medicine 05/02/24 Team Status: Inactive Member Role Status Dates Dr. Bennett Weir MD Primary Care Provider Active Start: August 19, 2024 End: August 19, 2024 Dr. Ky Ruiz DO Attending Provider Active Start: August 19, 2024 End: August 19, 2024 Dr. Ky Ruiz DO Emergency Provider Active Start: August 19, 2024 End: August 19, 2024 Team Status: Inactive Member Role Status Dates Dr. Bennett Weir MD Primary Care Provider Active Start: September 29, 2024 End: September 29, 2024 Dr. Gopal Christianson DO Emergency Provider Active Start : September 29, 2024 End: September 29, 2024 Tab Machine Operator Relationship Specialty Start Date End Date Bennett Weir MD [address] [place] [address] PCP - General Internal Medicine 02/01/16 Tamiko Buchanan, CAR SALESMAN.AUDIO VISUAL COORDINATOR [address] [place] [address] Faculty Support Coordinator Internal Medicine 05/02/24 Tab Machine Operator Relationship Specialty Start Date End Date Bennett Weir MD [address] [place] [address] PCP - General Internal Medicine 02/01/16 Tamiko Buchanan, CAR SALESMAN.AUDIO VISUAL COORDINATOR [address] [facility] [address] Faculty Support Coordinator Internal Medicine 05/02/24 Tab Machine Operator Relationship Specialty Start Date End Date Bennett Weir MD [address] [place], [place] [address] PCP - General Internal Medicine 02/01/16 Tamiko Buchanan, CAR SALESMAN.AUDIO VISUAL COORDINATOR [address] [place], [place] [address] Faculty Support Coordinator Internal Medicine 05/02/24 Tab Machine Operator Relationship Specialty Start Date End Date Bennett Weir MD [address] [place], [place] [address] PCP - General Internal Medicine 02/01/16 Tamiko Buchanan, CAR SALESMAN.AUDIO VISUAL COORDINATOR [address] [place] [address] Faculty Support Coordinator Internal Medicine 05/02/24 Tab Machine Operator Relationship Specialty Start Date End Date Bennett Weir MD [address] [place], [place] [address] PCP - General Internal Medicine 02/01/16 Tamiko Buchanan, CAR SALESMAN.AUDIO VISUAL COORDINATOR [address] [place], [place] [address] Faculty Support Coordinator Internal Medicine 05/02/24 Team Status: Inactive Member Role Status Dates Dr. Bennett Weir MD Primary Care Provider Active Start: September 29, 2024 End: September 29, 2024 Dr. Gopal Christianson , Attending Provider Active Start : September 29, 2024 End: September 29, 2024 Dr. Gopal Christianson DO Emergency Provider Active Start : September 29, 2024 End: September 29, 2024 Team Status: Inactive Member Role Status Dates Dr. Bennett Weir MD Primary Care Provider Active Start: October 26, 2024 End: October 26, 2024 Dr. Bennett Weir MD Attending Provider Active Start: October 26, 2024 End: October 26, 2024 Dr. Bennett Weir MD Referring Provider Active Start: October 26, 2024 End: October 26, 2024 Tab Machine Operator Relationship Specialty Start Date End Date Bennett Weir MD [address] [place], [place] [address] PCP - General Internal Medicine 02/01/16 Tamiko Buchanan, CAR SALESMAN.AUDIO VISUAL COORDINATOR [address] [place], [place] [address] Faculty Support Coordinator Internal Medicine 05/02/24 Tab Machine Operator Relationship Specialty Start Date End Date Bennett Weir MD [address] [place], [place] [id number] PCP - General Internal Medicine 02/01/16 Tamiko Buchanan, CAR SALESMAN.AUDIO VISUAL COORDINATOR [address] [place], [place] [address] Faculty Support Coordinator Internal Medicine 05/02/24 Reason for Visit (unrecogniz ed section and content) Reason Comments New Pain Specialty Diagnoses / Procedures Referred By Starr t Referred To Contact Orthopedics Diagnoses Chronic pain of both knees Primary osteoarthritis of both knees Procedures CONSULT TO ORTHOPAEDICS OFFICE/OUTPATIENT NEW HIGH MDM 60 MINUTES Tamiko Buchanan, CAR SALESMAN.AUDIO VISUAL COORDINATOR [address] [place] [address] Phone: tel: fax: Referral ID Status Reason Start Date Expiration Date V isits Requested Visits Authorized [id number] Closed PCP Requested Referral 08/24/2024 08/24/2025 1 1 Reason Comments labs Reason Comments Pain muscle pain all over [...] Medicare Wellness Exam 4 month follow up Specialty Diagnoses / Procedures Referred By Contac t Referred To Contact Podiatry Diagnoses Left foot pain Procedures CONSULT TO PODIATRY OFFICE/OUTPATIENT NEW HIGH MDM 60-74 MINUTES Older, Tamiko, CAR SALESMAN.AUDIO VISUAL COORDINATOR [address] [place] [address] Referral ID Status Reason Start Date Expiration Date V isits Requested Visits Authorized [id number] Closed PCP Requested Referral 11/21/2022 11/21/2023 1 1 Reason Comments Derm Problem Pt reported (LT) arm skin tear onset 12/30/2022, denied pain. Reason Onset Date Comments Community Monitoring Outreach 01/05/2023 CD M Follow Up Reason Onset Date Comments Population Health Navigation Outreach 01/20/2023 H@H Reason Comments Patient Update Reason Onset Date Comments Population Health Navigation Outreach 01/20/2023 H@H [facility] CALL [facility] Reason Comments Diarrhea Reason Onset Date Comments Community Monitoring Outreach 03/16/2023 CD M Follow Up Reason Comments Radiology US Specialty Diagnoses / Procedures Referred By Contac t Referred To Contact US IMAGING Diagnoses Abnormal thyroid ultrasound Procedures US THYROID/PARATHYROID ULTRASOUND OF THYROID Della Farooq MD [address] [facility] [place] [address] [place] [address] Referral ID Status Reason Start Date Expiration Date V isits Requested Visits Authorized [id number] Closed Auto-Generate d Referral 05/16/2021 06/15/2022 1 1 Reason Comments Follow Up c/o right knee pain x 2 weeks and swelling at times pain scale 5/10 Reason Onset Date Comments Community Monitoring Outreach 05/01/2023 CD M Follow Up Reason Onset Date Comments community monitoring outreach 07/10/2023 CD M outreach telephonic Reason Comments ER F/U Reason Onset Date Comments community monitoring outreach 07/24/2023 CD M outreach telephonic Reason Comments Difficulty Swallowing Reason Onset Date Comments community monitoring outreach 08/24/2023 CD M outreach telephonic Reason Comments ER F/U Reason Onset Date Comments community monitoring outreach 09/17/2023 CD M outreach telephonic Reason Onset Date Comments community monitoring outreach 09/18/2023 CD M outreach telephonic Reason Onset Date Comments community monitoring outreach 10/08/2023 CD M outreach telephonic Reason Comments Consult Specialty Diagnoses / Procedures Referred By Contac t Referred To Contact General Surgery Diagnoses Dysphagia, unspecified type Procedures CONSULT TO GENERAL SURGERY OFFICE/OUTPATIENT [facility] 60 MINUTES Bennett Weir MD [address] [place] [address] Referral ID Status Reason Start Date Expiration Date V isits Requested Visits Authorized [id number] Closed PCP Requested Referral 09/02/2023 09/01/2024 1 1 Reason Onset Date Comments community monitoring outreach 10/09/2023 CD M outreach telephonic Reason Onset Date Comments community monitoring outreach 10/23/2023 CD M outreach telephonic Reason Comments Hospital F/U Reason Onset Date Comments community monitoring outreach 11/06/2023 CD M outreach telephonic Reason Comments 7 month follow-up Reason Comments Follow Up Review EGD results. Reason Onset Date Comments community monitoring outreach 12/04/2023 CD M outreach telephonic Reason Onset Date Comments community monitoring outreach 01/04/2024 CD M outreach telephonic Reason Onset Date Comments community monitoring outreach 01/14/2024 CD M outreach telephonic Reason Onset Date Comments community monitoring outreach 02/11/2024 Mo nthly cdm call Reason Comments Medicare Wellness Exam Reason Onset Date Comments community monitoring outreach 03/15/2024 Mo nthly cdm call Reason Onset Date Comments community monitoring outreach 04/08/2024 Mo nthly cdm call Reason Onset Date Comments Refill Request 05/02/2024 Reason Onset Date Comments community monitoring outreach 05/03/2024 Mo nthly cdm call Reason Comments Results Reason Comments ER F/U [facility] diverticulitis/c ontestation Reason Comments ER F/U Bilateral knee pain/ RT ankle edema Reason Comments Established Patient Reason Comments Established Patient Reason Onset Date Comments Population Health Navigation Outreach 09/14/2024 [facility] Reason Comments ER F/U Dizziness, abdominal pain- lower middle, diarrhea Reason Comments Orders Goals (unrecognized section and content) Goals may be documented in a n alternate sectionGoals may be documented in an alternate sectionGoals may be documented in an alternate sectionGoals may be documented in an alternate sectionGoals may be documented in an alternate sectionGoals may be documented in an alternate sectionGoals may be documented in an alternate sectionGoals may be documented in an alternate section INFORMATION SOURCE (unrecogn ized section and content) DATE CREATED AUTHOR 11/01/2024 [facility] DATE CREATED AUTHOR AUTHOR'S JOHNSON ATJEOVANNY 12/07/2024 [facility] FOR RECORDS PERTAINING TO PATIENTS WHO ARE [...] BE BASED ON THE PRIMARY CLINICAL RECORDS. [facility]. provides no warranty or guarantee of the accuracy or completeness of information in this document.
[2025-02-12 23:24] LABS: Troponin T High Sensitivity 16 ng/L (<=14)
[2025-02-12 23:25] LABS: Anion Gap 13 (5-15); BUN 29 mg/dL (4-19); BUN/Creat Ratio 38.3 RATIO (10-20); Calcium,Total 9.2 mg/dL (7.6-11.0); Carbon Dioxide 21.4 mmol/L (21.0-32.0); Chloride 104 mmol/L (98-108); Estimated Creatinine Clearance 46.31 ml/min (50-250); Glucose 96 mg/dL (70-99); Potassium 4.3 mmol/L (3.3-5.1)
[2025-02-13 00:52] VITALS: BP 153/59; PULSE 81; RESP 19; O2SAT 99
[2025-02-13 02:00] VITALS: BP 145/61; PULSE 80; RESP 18; O2SAT 97
[2025-02-13 02:01] LABS: Troponin T High Sens 2 HR 16 ng/L (<=14)
[2025-02-13 02:23] VITALS: BP 145/61; PULSE 80; RESP 18; TEMP 36.9; O2SAT 97
== END 2025-02-13 02:49 | disposition home or self-care (01) ==
PROVIDERS: Emergency Provider Emergency Medicine; PCP Internal Medicine; Visit Provider Emergency Medicine
DX: R07.9 Chest pain, unspecified (principal); E78.00 Pure hypercholesterolemia, unspecified; I10 Essential (primary) hypertension
CPT/HCPCS: 71046; 80048; 84484; 85025; 93005; 99285; A4216